=== PATIENT | male | born 1965 | race Caucasian/White ===

== ENCOUNTER → 2019-06-16 13:26 | Outpatient (BNVA) | payer BC, SELFPAY | PROVIDERS: Family Provider Nurse Practitioner; PCP Nurse Practitioner; Visit Provider Registered Nurse | DX: E11.9 Type 2 diabetes mellitus without complications (principal); E78.5 Hyperlipidemia, unspecified; I10 Essential (primary) hypertension; E11.621 Type 2 diabetes mellitus with foot ulcer; E11.628 Type 2 diabetes mellitus with other skin complications; L97.509 Non-pressure chronic ulcer of other part of unspecified foot with unspecified severity; L08.9 Local infection of the skin and subcutaneous tissue, unspecified; E11.65 Type 2 diabetes mellitus with hyperglycemia; E78.2 Mixed hyperlipidemia; S91.302A Unspecified open wound, left foot, initial encounter | CPT/HCPCS: 80053; 80061; 83036; 85025; 87070; 87077; 87186 ==

== ENCOUNTER 2019-06-19 12:21 | Inpatient (IN) | payer BC, SELFPAY ==
[2019-06-19] VITALS (7 sets, daily range): BP systolic 109–151; BP diastolic 71–121; PULSE 92–106; RESP 12–20; TEMP 36.8–37.3; O2SAT 96–99; BMI 35.9
--- NOTE | 2019-06-19 12:51 | ED_ITS ---
HPI - Extremity Problem General: Chief complaint: Extremity Injury, Lower Stated complaint: wound check Time Seen by Provider: 06/19/19 12:47 History of Present Illness: HPI Narrative: 54-year-old male sent over from the wound care clinic he has a history of poorly controlled diabetes mellitus he is on insulin his last glycosylated hemoglobin was greater than 12. Stepped on a nail about 6 months ago since and is been trying to get the wound to heal he has an open wound to the foul-smelling discharge he was seen 3 days ago and started on Bactrim Dr. Coronel seen him today in the wound care clinic. Today she is reporting some redness and erythema localized does not look like actual lymphatic spread but there is definite increase in redness he is failed oral antibiotics now twice he is previously had a amputation of the toe due to infection. He is not had any evaluation in the past for peripheral artery disease at Dr. Coronel was aware of. Associated symptoms: Deny chest pain, fever(s) or rash Review of Systems Const: Denies: fever, chills, body aches, change in appetite, fatigue or ma laise ENMT: Denies: throat pain, ear pain, nasal discharge or nasal congestion Card: Denies: chest pain, edema, shortness of breath on exertion or shortness of breath when lying down Resp: Denies: shortness of breath, productive cough or non-productive cough GI: Denies: abdominal pain, nausea, vomiting, vomiting blood, coffee grounds in vomit, diarrhea, constipation, bloating, blood in stool or black tarry stool : Denies: flank pain, painful urination, urinary frequency or urinary urgency Skin/Breast: Denies: rash or itching PFSH ED PFSH: Family History (Updated 06/19/19 @ 15:40 by Cordelia Story MD) Father Diabetes Mother Diabetes Other Hypertension Social History (Updated 06/19/19 @ 15:40 by Cordelia Story MD) Smoking and tobacco status: never smoked Alcohol intake: former Substance/Drug Use: never Physical Exam Const: COMMON NORMALS: no apparent distress GENERAL APPEARANCE: cooperative and comfortable ORIENTATION/CONSCIOUSNESS: Yes awake, Yes oriented to person, Yes oriented to place and Yes oriented to time HENMT: COMMON NORMALS: normocephalic, head/scalp atraumatic, hearing grossly normal bilaterally, external ears normal, EAC's normal, TM's normal bilaterally, nasal mucous membranes and turbinates normal, moist oral mucous membranes and oropharynx normal HEAD & SCALP: normocephalic and atraumatic NOSE: nasal mucous membranes and turbinates normal EXTERNAL EAR: Yes external ears normal EXTERNAL AUDITORY CANAL: EAC's normal TYMPANIC MEMBRANE: TM's normal bilaterally Eye: COMMON NORMALS: PERRL, EOMs intact bilaterally, conjunctivae normal and no scleral icterus CONJUNCTIVA: Yes conjunctivae normal PUPIL: Yes PERRL Neck/C-Spine: COMMON NORMALS: full ROM, no lymphadenopathy, supple and no JVD Lymph: LYMPHATIC: no lymphadenopathy noted and no lymphedema noted Resp: COMMON NORMALS: normal respiratory effort, no retractions, no use of accessory muscles and clear to auscultation bilaterally AUSCULTATION: clear to auscultation bilaterally Cardio: COMMON NORMALS: no JVD, regular rate, regular rhythm and no murmurs RATE: regular rate RHYTHM: regular rhythm GI: COMMON NORMALS: soft to palpation and no hepatosplenomegaly AUSCUL TATION: Yes normoactive bowel sounds PALPATION: Yes soft, No tender, No guarding and Yes no hepatosplenomegaly Extremity: COMMON NORMALS: normal to inspection, normal capillary refill, no clubbing, cyanosis or edema, no calf tenderness and no pedal edema NARRATIVE EXTREMITY EXAM: Sole left foot laterally approximately the midpoint of the fifth metatarsal there is a open draining wound with extremely foul-smelling discharge. There is purulent in nature. Dorsum of the foot shows cellulitis without significant lymphatic streaking. Neuro: SENSORIUM/ORIENTATION: Yes oriented to person, Yes oriented to place and Yes oriented to time Skin: COMMON NORMALS: no rashes or lesions noted GENERAL SKIN EXAM: no rashes or lesions noted Course Vital Signs: Vital signs: Vital Signs Temperature 98.1 F 06/20/19 11:27 Pulse Rate 84 06/20/19 11:27 Respiratory Rate 22 H 06/20/19 11:27 Blood Pressure 138/76 06/20/19 11:27 Pulse Oximetry 98 06/20/19 11:27 MDM - Extremity (Nontraumatic) MDM Narrative: Medical decision making narrative: CT shows abscess. Will admit for surgical debridement and initiation of IV antibiotics. Discussed with Dr. Story and discussed with Dr. Shaffer who will see the patient on the floor Lab Data: Labs: Lab Results 06/19/19 06/19/19 06/19/19 Range/Units 13:10 13:10 13:10 WBC 11.3 H (4.0-10.0) 10^3/ uL RBC 4.76 (4.1-5.3) 10^6/u L Hgb 13.4 (11.7-16.6) g/dL Hct 41.7 L (42.0-52.0) % MCV 87.6 (80-94) fL MCH 28.2 (28.0-34.0) pg MCHC 32.1 (30.0-36.0) g/dL RDW 12.3 (12.1-15.1) % Plt Count 323 (130-400) 10^3/c mm MPV 9.8 (7.4-10.4) fL Neut % (Auto) 73.0 % Lymph % (Auto) 16.8 % [place] % (Auto) 9.0 % Eos % (Auto) 0.4 % Baso % (Auto) 0.3 % Neut # (Auto) 8.3 H (1.8-7.7) 10^3/u L Lymph # (Auto) 1.9 (0.8-4.8) 10^3/u L [place] # (Auto) 1.0 H (0.2-0.9) 10^3/u L Eos # (Auto) 0.0 (0.0-0.8) 10^3/u L Baso # (Auto) 0.0 (0.0-0.1) 10^3/u L Nucleated RBC % (a uto) 0 % Nucleated RBCs # 0.0 /100WBC ESR 90 H (0-10) mm/hr Sodium 133 L (136-145) mmol/L Potassium 5.3 H (3.5-5.1) mmol/L Chloride 96 L (98-107) mmol/L Carbon Dioxide 24 (22-29) mmol/L Anion Gap 18.3 (5-19) BUN 24 H (6-20) mg/dL Creatinine 1.8 H (0.7-1.2) mg/dL GFR Calculation 39.2 L (90-130) mL/min Glucose 203 H (65-115) mg/dL Calculated Osmolal ity 279 L (285-295) mOsm/k g Calcium 10.3 (8.5-10.5) mg/dL Total Bilirubin 0.4 (0.15-1.2) mg/dL AST 18 (0-40) U/L ALT 16 (0-41) U/L Alkaline Phosphata se 86 (40-130) IU/L C-Reactive Protein 104.3 H (0.0-4.9) mg/L Total Protein 8.0 (6.6-8.7) g/dL Albumin 4.1 (3.5-5.2) g/dL Globulin 3.9 (1.3-4.6) g/dL Lipase 41 (13-60) U/L Discharge Plan Discharge Admit Provider: Cordelia Story Condition: Stable Discharge Date/Time: 06/19/19 15:06 Coding Level of Care Code ED Skidder Driver for Paula Ho
--- NOTE | 2019-06-19 12:58 | XR_ITS ---
WS: [id number] LEFT FOOT: 3 VIEW(S) TECHNIQUE: PA, oblique and lateral. HISTORY: draining wound COMPARISON: 01/02/2019 Soft tissue ulceration along the lateral and plantar surface of the fifth metatarsal. The bone appear s to be intact. There is air along the soft tissue track of the proximal fifth metatarsal. Normal tarsal/metatarsal alignment. No soft tissue abnormality or bone destruction. XR/XR foot LT min 3V* [id number] IMPRESSION: Soft tissue ulceration with tract along the plantar lateral surface of the foot extends to abut proximal fifth metatarsal. No osteomyelitis identified.
--- NOTE | 2019-06-19 12:58 | CT_ITS ---
WS: [id number] CT LEFT FOOT WITH CONTRAST. HISTORY: cellulitis, abscess Technique: All CT scans at [facility] use at least one of these dose optimization techniq ues: automated exposure control; mA and/or kV adjustment per patient size (includes targeted exams wh ere dose is matched to clinical indication); or iterative reconstruction. DLP: 128.92 mGy.cm COMPARISON: 06/19/2019 foot radiograph. Soft tissue ulceration along the plantar surface of the lateral foot at the level of the proximal fif th metatarsal. Ulceration extends over length of at least 3.0 cm. There is a tract extending towards the fifth metatarsal. The tract contains air with enhancement and skin thickening. The tract and the inflammation extends to the cortical surface of the proximal metatarsal. No definite osteomyelitis or bone destruction. Phlegmonous collection measures 13 x 17 mm. No additional soft tissue ulcerations. Small cyst in the calcaneus. Mild soft tissue edema along the plantar surface of the foot. CT/CT foot LT w con [id number] IMPRESSION: 1. Soft tissue ulceration with tract extending from the plantar surface of the lateral foot to the proximal fifth metatarsal. 2. No osteomyelitis identified radiographically. 3. Phlegmonous collection and cellulitis adjacent to the fifth metatarsal. Ph legmonous measures 13 x 17 mm.
[2019-06-19 13:24] LABS: Basophils % 0.3 %; Eosinophils % 0.4 %; Hematocrit 41.7 % (42.0-52.0); Hemoglobin 13.4 g/dL (11.7-16.6); Lymphocytes # 1.9 10^3/uL (0.8-4.8); Lymphocytes % 16.8 %; Mean Corpuscular HGB Conc 32.1 g/dL (30.0-36.0); Mean Corpuscular Hemoglobin 28.2 pg (28.0-34.0); Mean Corpuscular Volume 87.6 fL (80-94); Mean Platelet Volume 9.8 fL (7.4-10.4); Neutrophils # 8.3 10^3/uL (1.8-7.7); Nucleated Red Blood Cells % 0 %; Platelet Count 323 10^3/cmm (130-400); Red Blood Count 4.76 10^6/uL (4.1-5.3); Red Cell Distribution Width 12.3 % (12.1-15.1); White Blood Count 11.3 10^3/uL (4.0-10.0)
[2019-06-19] MEDS: iodixanol 320 mg/mL 100mL Btl IV (13:25)
[2019-06-19 13:32] LABS: Alanine Aminotransferase 16 U/L (0-41); Albumin Level 4.1 g/dL (3.5-5.2); Alkaline Phosphatase 86 IU/L (40-130); Anion Gap 18.3 (5-19); Aspartate Amino Transferase 18 U/L (0-40); Blood Urea Nitrogen 24 mg/dL (6-20); C Reactive Protein 104.3 mg/L (0.0-4.9); Calcium 10.3 mg/dL (8.5-10.5); Carbon Dioxide 24 mmol/L (22-29); Chloride 96 mmol/L (98-107); Globulin 3.9 g/dL (1.3-4.6); Glomerular Filtration Rate 39.2 mL/min (90-130); Glucose 203 mg/dL (65-115); Lipase 41 U/L (13-60); Osmolality Calculated 279 mOsm/kg (285-295); Potassium 5.3 mmol/L (3.5-5.1); Sodium 133 mmol/L (136-145); Total Bilirubin 0.4 mg/dL (0.15-1.2)
[2019-06-19] MEDS: vancomycin 1,000 MG in sodium chloride 0.9% 250 ML 250 MG IV (13:50)
[2019-06-19 14:36] LABS: Erythrocyte Sedimentation Rate 90 mm/hr (0-10)
--- NOTE | 2019-06-19 15:18 | USCV_ITS ---
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 Dr Leslie Hair MD [facility] (Electronically Signed) Final Date: 21 June 2019 20:15 S
--- NOTE | 2019-06-19 15:19 | PM.CONSULT ---
Providers/Reason For Consult Consulting Physican/Specialty*: Dr. Goodman Pryor Reason for Consult*: Left foot wound with infection Attending Physician: Cordelia Story MD Primary Care Provider: DAGOBERTO Patel History of Present Illness History of Present Illness Martir Kruger is a 54 year old poorly controlled diabetic male with nonhealing left foot ulcer. Per patient's report there has been a waxing and waning wound at the left lateral midfoot for the past 6 months, states that he had a sharp object in his shoe that was a source of the wound. He was seen by his primary care provider May 15 and was prescribed Bactrim DS lab work was also done his white count on 06/15 was 6.9 he was afebrile. He had wound care follow-up arranged. He was seen at wound care by Dr. Coronel today, reports of increased redness, drainage and malodor, he was then sent to the emergency department. I was consulted for evaluation of his left foot wound small abscess visualized on CT. Patient admitted for IV empiric antibiotics and surgical debridement. Review of Systems Const: Denies: fever, chills or malaise Card: Denies: chest pain or palpitations Resp: Denies: shortness of breath, productive cough or non-productive cough GI: Denies: abdominal pain, nausea or vomiting Musc: Reports: redness (L foot) and deformity; Denies: extremity pain Skin/Breast: Reports: sores and nail changes Neuro: Reports: numbness in extremities and changes in sensation Psych: Denies: anxiety Meds/Allergies Home Medications and Allergies Home Medications Medication Instructions Recorded Confirmed Type aspirin 81 mg tablet,delayed 81 mg PO DAILY 06/16/19 06/19/19 History release exenatide 10 mcg SUBCUT BID #2.4 ml 06/16/19 06/19/19 Rx insulin detemir U-100 100 unit/mL 50 unit SUBCUT DAILY #15 ml 06/16/19 06/19/19 Rx (3 mL) subcutaneous pen insulin lispro 200 unit/mL (3 mL) 3 - 24 unit SUBCUT TID #6 ml 06/16/19 06/19/19 Rx subcutaneous pen lisinopril 2.5 mg tablet 2.5 mg PO DAILY 06/16/19 06/19/19 History metformin 1,000 mg tablet,extended 1,000 mg PO DAILY #90 tab 06/16/19 06/19/19 Rx release 24hr multivitamin 1 tab PO DAILY 06/16/19 06/19/19 History sulfamethoxazole 800 1 tab PO BID 10 Days #20 tab 06/16/19 06/19/19 Rx mg-trimethoprim 160 mg tablet Allergies Allergy/AdvReac Type Severity Reaction Status Date / Time No Known Allergies Allergy Verified 06/16/19 12:27 PFSH Acute PFSH: Medical History (Updated 06/19/19 @ 17:20 by Trace Shaffer DPM) Diabetes type 2, uncontrolled Insulin-dependent Essential hypertension Hyperlipidemia, mixed Obesity Surgical History Amputated toe of right foot secondary to osteomyelitis Family History (Updated 06/19/19 @ 15:40 by Cordelia Story MD) Father Diabetes Mother Diabetes Other Hypertension Social History (Updated 06/19/19 @ 15:40 by Cordelia Story MD) Smoking and tobacco status: never smoked Alcohol intake: former Substance/Drug Use: never Vitals/I&O/Wt Last Vital Signs Temp 98.3 F 06/19/19 12:25 Pulse 105 H 06/19/19 13:50 Resp 12 06/19/19 13:50 BP 109/75 06/19/19 13:50 Pulse Ox 97 06/19/19 13:50 Weight last 48 hrs Weight 243 lb Physical Exam Narrative: EXAM NARRATIVE: GENERAL: Patient is alert and oriented ?3 and in no acute distress. The following is a focused left lower extremity exam. VASCULAR: Dorsalis pedis arteries faintly palpable, posterior tibial arteries palpable +1 bilaterally. Capillary refill time less than 5 seconds to the distal hallux bilaterally. Calf is supple and nontender proximally and distally. Decreased hair growth at legs and feet bilaterally. No significant edema to the left foot. NEUROLOGICAL: Protective sensation intact 0/10 sites. DERMATOLOGICAL: Full-thickness wound sub-fifth metatarsal base left foot probes to bone measures 4 mm x 6 mm x 2 cm with malodor and cellulitis streaking to the dorsum of the left forefoot. Well-healed cicatrix at the right foot fourth toe amputation site. Lower extremity integument is thin and shiny has atrophic appearance with decreased texture and turgor. MUSCULOSKELETAL: No pain to palpation or with debridement of the left foot wound secondary to neuropathy. Muscle strength is 5 out of 5 in all 3 cardinal planes to bilateral foot and ankle. Ankle joint dorsiflexion is to neutral bilaterally. Feet Bottom: 1. Full-thickness wound probes to bone, depth of 2 cm. Cellulitis streaking to the dorsum of the left forefoot. No lymphangitic streaking proximal to the ankle. Data Micro: Micro: Microbiology 06/19/19 13:10 Blood Culture - Pr eliminary Blood SPECIMEN [facility] 06/19/19 13:00 Blood Culture - Pr eliminary Blood SPECIMEN [facility] Wound culture taken June 16, 2019 significant for Proteus mirabilis, Streptococcus and staph aureus. Sensitivities available for Proteus species, strep/staph are pending. Other Data: Other data: I reviewed x-rays and CT scan of the left lower extremity no obvious signs of osteomyelitis, there is soft tissue emphysema corresponding directly to the wound cavity, no foreign body, there is abscess collection appreciated on CT phlegmonous measures 13 x [address] A&P Assessment and plan (1) Diabetes type 2, uncontrolled: Status: Chronic Qualifiers: Glycemic state: with hyperglycemia Qualified Code(s): E11.65 - Type 2 diabetes mellitus with hyperglycemia (2) Non-pressure chronic ulcer 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: Status: Acute Patient was examined and evaluated, findings and treatment options were discussed with patient at length. He is receiving empiric IV antibiotics vancomycin and Zosyn renally dosed. Patient to be n.p.o. after midnight in preparation for incision and debridement left foot tentatively scheduled for tomorrow morning for June 19 at 7:45 AM. Patient will need to be nonweightbearing to the left lower extremity during his hospitalization. May require further surgical debridement, planning on acquiring a bone biopsy if wound indeed extends to the bone during tomorrow's procedure. Possibility for PICC line on discharge. Coding Level of Care Code Acute [employer] for Paula Ho Diagnoses Diabetes type 2, uncontrolled E11.65 Glycemic state: with hyperglycemia Non-pressure chronic ulcer 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 L97.523
--- NOTE | 2019-06-19 15:33 | P.HP_ITS ---
Providers/Chief Complaint Admitting Physician: Cordelia Story MD Primary Care Provider: Spencer Plata, SR. UNIX SYSTEM ADMINISTRATOR-C Chief Complaint: L foot draining wound History of Present Illness Martir Kruger is a 54 year old male with PMHx of IDDM type II, HTN, CKD stage 2-3, Peripheral neuropathy, Morbid obesity, presents for evaluation of noted left foot wound which he first noticed approximately 6 months ago after stepping on a nail that punctured through his shoe. Initially wound seemed to be healing with conservative measures but over the past several days has been noted to be draining and though he has limited sensation in his feet he started to notice some tingling in his left foot which he thought was unusual. He presented to his primary care provider on 06/15 and was prescribed Bactrim which he has been taking for the past 2 to 3 days. Wound culture was obtained during that visit and so far has grown Proteus mirabilis, strep species and staph aureus. Patient has a prior history of osteomyelitis with resulting amputation of the right fourth toe, done by Dr. Shaffer in 10/2017. Patient is a known insulin-dependent diabetic, last A1c was 12.2 in January 2019. Work-up in the ER indicates leukocytosis with a white count of 11.3, hyponatremia with a sodium of 133, hype rkalemia with a potassium of 5.3, BUN of 24, creatinine of 1.8, blood sugar of 203, ESR of 90, CRP of 104.3. X-ray shows no osteomyelitis, CT scan shows soft tissue ulceration with a phlegmon but no osteomyelitis. Case discussed with Dr. Shaffer and plan is for surgical debridement sometime tomorrow. Patient received a dose of vancomycin and I will add Zosyn given history of complicated wound, underlying uncontrolled diabetes with cautious monitoring of kidney function. Patient is currently afebrile and otherwise hemodynamically stable. He is being admitted for further IV antibiotic treatment and for surgical debridement. Review of Systems Const: Denies: fever, chills or malaise Eyes: Denies: change in vision ENMT: Denies: painful swallowing Card: Denies: chest pain, swelling of feet/ankles or lightheadedness Resp: Denies: shortness of breath, productive cough or non-productive cough GI: Denies: abdominal pain, nausea or vomiting : Denies: painful urination Musc: Reports: redness (L foot); Denies: back pain or extremity pain Skin/Breast: Reports: other (L foot-open draining wound); Denies: rash Neuro: Denies: numbness in extremities, weakness in extremities or difficulty walking Psych: Denies: anxiety Medications/Allergies Allergies Allergy/AdvReac Type Severity Reaction Status Date / Time No Known Allergies Allergy Verified 06/16/19 12:27 PFSH Acute PFSH: Medical History Diabetes type 2, uncontrolled Insulin-dependent Essential hypertension Hyperlipidemia, mixed Obesity Surgical History Amputated toe of right foot secondary to osteomyelitis Family History (Updated 06/19/19 @ 15:40 by Cordelia Story MD) Father Diabetes Mother Diabetes Other Hypertension Social History (Updated 06/19/19 @ 15:40 by Cordelia Story MD) Smoking and tobacco status: never smoked Alcohol intake: former Substance/Drug Use: never Vitals/I&O/Wt Last Vital Signs Temp 98.3 F 06/19/19 12:25 Pulse 105 H 06/19/19 13:50 Resp 12 06/19/19 13:50 BP 109/75 06/19/19 13:50 Pulse Ox 97 06/19/19 13:50 Weight last 48 hrs Weight 110.223 kg Physical Exam Const: COMMON NORMALS: no apparent distress and oriented x3 GENERAL APPEARANCE: cooperative and comfortable; not ill appearing NUTRITIONAL APPEARANCE: obese morbidly obese ORIENTATION/CONSCIOUSNESS: Yes awake HENMT: COMMON NORMALS: normocephalic, head/scalp atraumatic, hearing grossly normal bilaterally and moist oral mucous membranes HEAD & SCALP: normocephalic and atraumatic Eye: COMMON NORMALS: PERRL, EOMs intact bilaterally and conjunctivae normal CONJUNCTIVA: Yes conjunctivae normal PUPIL: Yes PERRL Neck/C-Spine: COMMON NORMALS: full ROM GENERAL: Yes normal visual inspection and Yes trachea midline Resp: COMMON NORMALS: normal respiratory effort, no retractions, no use of accessory muscles and clear to auscultation bilaterally EFFORT & INSPECTION: Yes able to speak in complete sentences, Yes symmetric chest movement and No tachypneic AUSCULTATION: clear to auscultation bilaterally Cardio: COMMON NORMALS: regular rate, regular rhythm, S1 normal heart sound, S2 normal heart sound and no murmurs RATE: regular rate RHYTHM: regular rhythm HEART SOUNDS: S1 normal and S2 normal GI: COMMON NORMALS: normal to inspection, nondistended, normoactive bowel sounds, soft to palpation and non-tender INSPECTION: Yes central obesity PALPATION: Yes soft Extremity: COMMON NORMALS: normal to inspection, full ROM and no clubbing, cyanosis or edema; negative for no pedal edema OTHER: -L lateral foot: noted open wound with callused edges on plantar surface, + foul-smelling drainage, tunnels to about 2 cm. Some erythema and warmth to touch on dorsum -R foot: amputated 4th toe Neuro: COMMON NORMALS: oriented x3, moves all extremities, no focal motor deficits and no sensory deficits noted Psych: COMMON NORMALS: mental status grossly normal, thought process normal, cooperative, affect normal and speech normal SPEECH: Yes normal speech THOUGHT PROCESS: normal thought process Skin: COMMON NORMALS: no jaundice, no petechiae and no mottling GENERAL SKIN EXAM: erythema (of L foot (dorsum)) Data : 06/19/19 13:10 06/19/19 13:10 Micro: Microbiology 06/19/19 13:10 Blood Culture - Preliminary Blood SPECIMEN COLLECTED 06/19/19 13:00 Blood Culture - Preliminary Blood SPECIMEN COLLECTED A&P Assessment and plan (1) Diabetic foot infection: -Noted left diabetic foot infection; no osteomyelitis per imaging though upon probes to bone following bedside debridement -Patient has known history of poorly controlled insulin-dependent diabetes with associated peripheral neuropathy and nephropathy -Noted elevated ESR and CRP, leukocytosis with neutrophilic predominance; continue to trend WBC -Noted area of erythema on dorsum of foot, area demarcated -Podiatry consult by Dr. Shaffer appreciated; plan for surgical debridement tomorrow; keep n.p.o. after midnight -Patient had been on Bactrim PO -received dose of Vancomycin in ED, continue this and add Zosyn due to duration of wound, hx of uncontrolled DM, failure of oral abx -f/u wound and blood cx; prior wound cx done by PCP on 06/15 grew Proteus mirabilis, Strep, Staph aureus -imaging noted with phelgmon Status: Acute (2) Diabetes type 2, uncontrolled: -has known IDDM type II, last A1c-12.2 (01/2019) -accuchecks, ISS, hypoglycemia precautions while NPO -diabetic diet for now, NPO after midnight Status: Chronic Qualifiers: Glycemic state: with hyperglycemia Qualified Code(s): E11.65 - Type 2 diabetes mellitus with hyperglycemia (3) Essential hypertension: -has known hx of HTN -monitor vital signs -hold ACEi due to renal impairment Status: Chronic (4) Hyperlipidemia, mixed: Status: Chronic Additional A&P Information -hx of OM with amputation of R 4th toe -Morbid obesity: BMI-36 kg/m2 -ALESIA on CKD stage 2-3; baseline Cr around 1.5; continue to monitor renal function, on IVF; avoid nephrotoxins, renally dose meds particularly with dual use of Vanc/Zosyn -DVT ppx with heparin -Dispo: home -Code status: FULL code Attestations Medical Necessity Statement*: Martir Kruger's hospital stay will require greater than 2 midnights for management of left diabetic foot infection including IV antibiotics and surgical debridement. Time Spent in Patient Care: Greater than 35 minutes (>than 50% of time spent in counselling and/or direct pt care on unit) . Coding Level of Care Code Acute Police Patrol Officer for Chg Fwd Diagnoses Diabetic foot infection E11.628; L08.9 Diabetes type 2, uncontrolled E11.65 Glycemic state: with hyperglycemia Essential hypertension I10 Hyperlipidemia, mixed E78.2
[2019-06-19] MEDS: sodium chloride 0.9% 1,000 ML 100 ML IV (15:47)
[2019-06-19] MEDS: heparin 5,000 unit/mL INJ 1 mL 5000 UNIT SUBCUT (17:32)
[2019-06-19 17:36] LABS: Glucose Point of Care 250 mg/dL (70-110)
[2019-06-19 21:10] LABS: Glucose Point of Care 203 mg/dL (70-110)
[2019-06-19] MEDS: piperacillin-tazobactam 3.375 GM in sodium chloride 0.9% (plus) 50 ML IV (21:24)
[2019-06-20] VITALS (9 sets, daily range): BP systolic 122–167; BP diastolic 73–91; PULSE 84–91; RESP 16–22; TEMP 36.1–37.6; O2SAT 96–98
[2019-06-20] MEDS: sodium chloride 0.9% 1,000 ML 100 ML IV (00:12)
[2019-06-20 05:42] LABS: Basophils % 0.4 %; Eosinophils # 0.1 10^3/uL (0.0-0.8); Eosinophils % 1.3 %; Hematocrit 36.9 % (42.0-52.0); Lymphocytes # 1.4 10^3/uL (0.8-4.8); Lymphocytes % 18.2 %; Mean Corpuscular HGB Conc 32.5 g/dL (30.0-36.0); Mean Corpuscular Volume 86.2 fL (80-94); Monocytes # 0.7 10^3/uL (0.2-0.9); Monocytes % 9.7 %; Neutrophils # 5.3 10^3/uL (1.8-7.7); Neutrophils % 69.9 %; Nucleated Red Blood Cells % 0 %; Platelet Count 283 10^3/cmm (130-400); Red Blood Count 4.28 10^6/uL (4.1-5.3); Red Cell Distribution Width 12.6 % (12.1-15.1); White Blood Count 7.6 10^3/uL (4.0-10.0)
[2019-06-20 05:59] LABS: Anion Gap 17.4 (5-19); Blood Urea Nitrogen 18 mg/dL (6-20); Calcium 9.6 mg/dL (8.5-10.5); Carbon Dioxide 23 mmol/L (22-29); Chloride 97 mmol/L (98-107); Glomerular Filtration Rate 48.4 mL/min (90-130); Glucose 250 mg/dL (65-115); Osmolality Calculated 279 mOsm/kg (285-295); Potassium 5.4 mmol/L (3.5-5.1); Sodium 132 mmol/L (136-145)
[2019-06-20 06:33] LABS: Glucose Point of Care 237 mg/dL (70-110)
--- NOTE | 2019-06-20 06:34 | PC.NURSE ---
OFF UNIT Patient taken down to surgery at this time.
--- NOTE | 2019-06-20 07:01 | PM.PN ---
Subjective Subjective: Interval history: Patient evaluated bedside in preop. He has been n.p.o. since midnight in preparation for surgery. Denies any increase in pain, dressings are intact without strikethrough. Patient denies any subjective nausea, vomiting, fever, chills, shortness of breath or chest pain. Medications: Reviewed: Yes Vitals/I&O/Wt Last Vital Signs Temp 96.9 F L 06/20/19 06:50 Pulse 87 06/20/19 06:50 Resp 18 06/20/19 06:50 BP 167/91 06/20/19 06:50 Pulse Ox 97 06/20/19 06:50 06/19/19 06/20/19 06/20/19 22:59 06:59 14:59 Intake Total 240 / 240 841.667 / 1081.667 Output Total 400 / 400 Balance 240 / 240 441.667 / 681.667 Weight last 48 hrs Weight 236 lb 4 oz Weight 243 lb Physical Exam Narrative: EXAM NARRATIVE: GENERAL: Patient is alert and oriented ?3 and in no acute distress. The following is a focused left lower extremity exam. VASCULAR: Dorsalis pedis arteries faintly palpable, posterior tibial arteries palpable +1 bilaterally. Capillary refill time less than 5 seconds to the distal hallux bilaterally. Calf is supple and nontender proximally and distally. Decreased hair growth at legs and feet bilaterally. No significant edema to the left foot. NEUROLOGICAL: Protective sensation intact 0/10 sites. DERMATOLOGICAL: Full-thickness wound sub-fifth metatarsal base left foot probes to bone measures 4 mm x 6 mm x 2 cm with malodor and cellulitis streaking to the dorsum of the left forefoot. Well-healed cicatrix at the right foot fourth toe amputation site. Lower extremity integument is thin and shiny has atrophic appearance with decreased texture and turgor. MUSCULOSKELETAL: No pain to palpation or with debridement of the left foot wound secondary to neuropathy. Muscle strength is 5 out of 5 in all 3 cardinal planes to bilateral foot and ankle. Ankle joint dorsiflexion is to neutral bilaterally. Feet Bottom: 1. Full-thickness wound probes to bone 2. History of right fourth toe amputation secondary to diabetic foot infection. Data : 06/20/19 05:00 06/20/19 05:00 Micro: Microbiology 06/19/19 13:10 Blood Culture - Preliminary Blood SPECIMEN COLLECTED 06/19/19 13:00 Blood Culture - Preliminary Blood SPECIMEN COLLECTED Other data: ESR 90 mm/h CRP 104.3 mg/L A1c 11.2 MONAE pending A&P Assessment and plan (1) Non-pressure chronic ulcer 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: Status: Acute (2) Diabetes type 2, uncontrolled: Status: Chronic Qualifiers: Glycemic state: with hyperglycemia Qualified Code(s): E11.65 - Type 2 diabetes mellitus with hyperglycemia Patient has been n.p.o. since midnight in preparation for surgery. Patient scheduled for incision debridement left foot this a.m. 745. Reviewed laboratory findings, clinical findings as well as informed consent with patient he is ready to proceed. Risks include pain, bleeding, numbness, persistent infection, loss of function, damage to adjacent soft tissue structures including muscle and tendon, need for further surgical debridement and/or amputation and need for antibiotic therapy. Attestations Medical Necessity Statement*: Diabetic foot infection with abscess, left foot Coding Level of Care Code Acute Life Specialist for [facility] Gris Diagnoses Non-pressure chronic ulcer 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 L97.523 Diabetes type 2, uncontrolled E11.65 Glycemic state: with hyperglycemia
[2019-06-20] MEDS: sodium chloride 0.9% 1,000 ML 30 ML IV (07:05)
--- NOTE | 2019-06-20 07:06 | P.ANESASSM_ITS ---
Pre-Anesthetic Assessment Pre-Anesthetic Assessment: Height/Weight: Height 1.75 m Weight 107.161 kg Temp Pulse Resp BP Pulse Ox 96.9 F L 87 18 167/91 97 06/20/19 06:50 06/20/19 06:50 06/20/19 06:50 06/20/19 06:50 06/20/19 06:50 Preop Diagnosis: left foot infection Proposed Procedure: Operation Date: 06/20/19 07:45 Proposed Procedures p Incision And Drainage(Not Applicable) - Trace Shaffer DPM Last intake: Intake Last Liquid Date 06/19/19 Last Liquid Time 23:00 Last Solid Date 06/19/19 Last Solid Time 23:00 Exam: Pre-Anes Outpt Exam: alert and oriented x 3 CV/HEM: CV/HEM: HTN Comments: rx'd 10y : : Chronic renal Insufficiency Comments: stage II-IIi Metabolic: Metabolic: DM and Morbid obesity Comments: Type II rx'd 18y, normally 2-250 Anesthetic Plan: ASA status: 3 Anesthesia: MAC Meds/Allergies Current Medications: Current Medications Generic Name Dose Route Start Last Admin Trade Name Freq PRN Reason Stop Dose Admin Heparin Sodium (Be ef Lung) 5,000 unit 06/19/19 16:15 06/19/19 23:50 Heparin SUBCUT Not Given Q8H MANUELA Sodium Chloride 1,000 mls @ 100 m ls/hr 06/19/19 15:18 06/20/19 00:12 Sodium Chloride 0.9% IV 100 mls/hr .Q10H MANUELA Administration Piperacillin Sod/T azobactam 50 mls @ 12.5 mls /hr 06/19/19 22:00 06/19/19 21:24 Sod 3.375 gm/ So dium Chloride IV 12.5 mls/hr Q18H MANUELA Administration Protocol Vancomycin HCl 1,5 00 mg/ 250 mls @ 166.667 mls/hr 06/19/19 22:00 06/19/19 21:23 Sodium Chloride IV 166.7 mls/hr Q18H MANUELA Administration Protocol Sodium Chloride 1,000 mls @ 30 ml s/hr 06/20/19 06:45 06/20/19 07:05 Sodium Chloride 0.9% IV 06/21/19 06:44 30 mls/hr .Q24H MANUELA Administration Insulin Aspart 0 unit 06/19/19 18:00 06/19/19 21:23 Novolog SUBCUT 8 unit WM&BEDTIME MANUELA Administration Protocol PFSH Anesthesia PFSH: Family History (Updated 06/19/19 @ 15:40 by Cordelia Story MD) Father Diabetes Mother Diabetes Other Hypertension Social History (Updated 06/19/19 @ 15:40 by Cordelia Story MD) Smoking and tobacco status: never smoked Alcohol intake: former Substance/Drug Use: never Data Anesthesia CBC & Chem 7: 06/20/19 05:00 06/20/19 05:00 Other Labs: Laboratory Results - last 48 hr 06/19/19 06/19/19 06/19/19 13:10 13:10 13:10 WBC 11.3 H RBC 4.76 Hgb 13.4 Hct 41.7 L MCV 87.6 MCH 28.2 MCHC 32.1 RDW 12.3 Plt Count 323 MPV 9.8 Neut % (Auto) 73.0 Lymph % (Auto) 16.8 [place] % (Auto) 9.0 Eos % (Auto) 0.4 Baso % (Auto) 0.3 Neut # (Auto) 8.3 H Lymph # (Auto) 1.9 [place] # (Auto) 1.0 H Eos # (Auto) 0.0 Baso # (Auto) 0.0 Nucleated RBC % (auto) 0 Nucleated RBCs # 0.0 ESR 90 H Sodium 133 L Potassium 5.3 H Chloride 96 L Carbon Dioxide 24 Anion Gap 18.3 BUN 24 H Creatinine 1.8 H GFR Calculation 39.2 L Glucose 203 H POC Glucose Calculated Osmolality 279 L Calcium 10.3 Total Bilirubin 0.4 AST 18 ALT 16 Alkaline Phosphatase 86 C-Reactive Protein 104.3 H Total Protein 8.0 Albumin 4.1 Globulin 3.9 Lipase 41 06/19/19 06/19/19 06/20/19 17:32 21:06 05:00 WBC 7.6 RBC 4.28 Hgb 12.0 Hct 36.9 L MCV 86.2 MCH 28.0 MCHC 32.5 RDW 12.6 Plt Count 283 MPV 10.0 Neut % (Auto) 69.9 Lymph % (Auto) 18.2 [place] % (Auto) 9.7 Eos % (Auto) 1.3 Baso % (Auto) 0.4 Neut # (Auto) 5.3 Lymph # (Auto) 1.4 [place] # (Auto) 0.7 Eos # (Auto) 0.1 Baso # (Auto) 0.0 Nucleated RBC % (auto) 0 Nucleated RBCs # 0.0 ESR Sodium Potassium Chloride Carbon Dioxide Anion Gap BUN Creatinine GFR Calculation Glucose POC Glucose 250 203 Calculated Osmolality Calcium Total Bilirubin AST ALT Alkaline Phosphatase C-Reactive Protein Total Protein Albumin Globulin Lipase 06/20/19 06/20/19 05:00 06:26 WBC RBC Hgb Hct MCV MCH MCHC RDW Plt Count MPV Neut % (Auto) Lymph % (Auto) [place] % (Auto) Eos % (Auto) Baso % (Auto) Neut # (Auto) Lymph # (Auto) [place] # (Auto) Eos # (Auto) Baso # (Auto) Nucleated RBC % (auto) Nucleated RBCs # ESR Sodium 132 L Potassium 5.4 H Chloride 97 L Carbon Dioxide 23 Anion Gap 17.4 BUN 18 Creatinine 1.5 H GFR Calculation 48.4 L Glucose 250 H POC Glucose 237 Calculated Osmolality 279 L Calcium 9.6 Total Bilirubin AST ALT Alkaline Phosphatase C-Reactive Protein Total Protein Albumin Globulin Lipase Micro: Microbiology 06/19/19 13:10 Blood Culture - Preliminary Blood SPECIMEN COLLECTED 06/19/19 13:00 Blood Culture - Preliminary Blood SPECIMEN COLLECTED Cardiac Studies: No Data to Display
[2019-06-20] MEDS: lidocaine 1% INJ 20 mL SUBCUT (08:30)
[2019-06-20] MEDS: vancomycin 500 MG in sodium chloride 0.9% (plus) 100 ML 200 MG XX (08:40)
--- NOTE | 2019-06-20 08:59 | P.OP_ITS ---
Operative Report Date of procedure: June 20, 2019 Pre-op Diagnosis: left foot infection with wound exposed to muscle and deep fascia Post-op diagnosis: same Post-op Findings: Left foot wound exposed to muscle layer Procedure Done: Incision and debridement left foot wound including epidermis, dermis, subcutaneous tissue, fat, muscle and deep fascia. Implants: None Specimens removed/disposition: Soft tissue left foot wound sent to microbiology for culture and sensitivity Pathology: none sent Surgeon: Trace Shaffer D.P.M. Employment Legal Assistant: Isamar Anesthesia: MAC Estimated blood loss: 5 mL IV fluids: None Urine output: None Complications: None Findings: Full-thickness wound exposed to fat layer, did not probe directly to bone. Condition: stable Disposition: floor Brief History: Mr. Kruger is a poorly controlled diabetic male with chronic nonhealing wound with recent increased redness, erythema and purulent drainage left plantar midfoot. Procedure: Under mild sedation the patient was brought to the operating room and placed on the operating table in supine position. A timeout was performed. Local anesthesia was injected by myself reverse Will block left foot consisting of 30 cc of one-to-one mixture 0.5% Marcaine plain and 1% lidocaine plain. Well-padded pneumatic tourniquet was applied to the left ankle. Left lower extremity was then scrubbed, prepped and draped utilizing normal aseptic technique. Left foot was elevated and tourniquet was inflated to 250 mmHg. Attention was directed to the left plantar foot, wound was explored utilizing blunt dissection and a [place] elevator did not probe directly to bone was able to visualize the lateral band of the plantar fascia near its attachment at the plantar aspect of the fifth metatarsal base left foot. Pickups and a 15 blade was utilized to sharply excise the wound circumferentially around its entire margin to healthy level there is significant fibrotic tissue and phlegmon with devitalized epidermis, dermis, subcutaneous tissue muscle and fat at the central portion of the wound this was excised and passed from the operative field. Utilizing sharp instrumentation the wound was debrided of all devitalized tissue followed pulse lavage irrigation. Soft tissue was sent to microbiology for culture and sensitivity intraoperatively. Further exploration of the wound was performed this did tunnel medially with a firm base further excision of the wound margins was performed to remove all tunneling and devitalized tissue. Further irrigation with saline was performed. Wound was then dressed with 500 mg of vancomycin powder, saline wet-to-dry consisting of sterile 4 x 4's, Kerlix ABD pad and noncompressive 4 inch Sylvester wrap. Tourniquet was deflated and a prompt hyperemic response was noted to the distal digits of the left foot. Patient tolerated the procedure well and was transferred to the PACU vital signs stable and vascular status intact. He will be transferred back to the floor to continue empiric IV antibiotics he is to remain nonweightbearing to the left foot and keep it elevated all times.
--- NOTE | 2019-06-20 09:05 | SUR.PHASEI ---
PT AWAKE ALERT TALKATAIVE HOB ELEVATED RT NECK DRESSING D/I 4X4 TEGADERM TO NECK
--- NOTE | 2019-06-20 09:58 | SUR.PHASEI ---
09 PT AWAKE ALERT TALKATIVE TAKING ICE CHIPS LT FOOT DRESSING D/I REPORT CALLED TO FLOOR PT TO FLOOR PER CART WITH RN
[2019-06-20 10:57] LABS: Glucose Point of Care 295 mg/dL (70-110)
--- NOTE | 2019-06-20 11:49 | PM.PN ---
Subjective Subjective: Interval history: s/p I & D this AM by Dr. Shaffer. AM labs noted, resolved leukocytosis, afebrile, VSS. Patient seen and examined upon his return from OR, in good spirits, no complaints, denies pain. Case discussed with Dr. Shaffer and will plan on PICC line placement, wound vac placement. Medications: Reviewed: Yes Medication Review Details: Active Medications Generic Name Dose Route Start Last Admin Trade Name Freq PRN Reason Stop Dose Admin Acetaminophen 650 mg 06/19/19 15:18 Tylenol PO Q6H PRN Mild/Mod Pain Or Temp >/= 101 Aspirin 81 mg 06/20/19 09:00 Aspirin Ec PO DAILY MANUELA Dextrose 25 ml 06/19/19 16:06 D50w IVP ONCE PRN hypoglycemia prot ocol Protocol Dextrose 50 ml 06/19/19 16:06 D50w IVP PRN PRN hypoglycemia prot ocol Protocol Glucagon 1 mg 06/19/19 16:06 Glucagen IM ONCE PRN Adult Acute Hypog lycemia Prot. Protocol Heparin Sodium (Be ef Lung) 5,000 unit 06/19/19 16:15 06/19/19 23:50 Heparin SUBCUT Not Given Q8H MANUELA Dextrose 500 mls @ 100 mls /hr 06/19/19 16:06 D5w IV ONCE PRN Adult Acute Hypog lycemia Prot Protocol Piperacillin Sod/T azobactam 50 mls @ 12.5 mls /hr 06/19/19 22:00 06/19/19 21:24 Sod 3.375 gm/ So dium Chloride IV 12.5 mls/hr Q18H MANUELA Administration Protocol Vancomycin HCl 1,5 00 mg/ 250 mls @ 166.667 mls/hr 06/19/19 22:00 06/19/19 21:23 Sodium Chloride IV 166.7 mls/hr Q18H MANUELA Administration Protocol Insulin Aspart 0 unit 06/19/19 18:00 06/19/19 21:23 Novolog SUBCUT 8 unit WM&BEDTIME MANUELA Administration Protocol Morphine Sulfate 2 mg 06/19/19 15:35 Morphine IVP Q4H PRN SEVERE PAIN No Known Allergies Allergy (Verified 06/16/19 12:27) Vitals/I&O/Wt Last Vital Signs Temp 98.1 F 06/20/19 11:27 Pulse 84 06/20/19 11:27 Resp 22 H 06/20/19 11:27 BP 138/76 06/20/19 11:27 Pulse Ox 98 06/20/19 11:27 06/19/19 06/20/19 06/20/19 22:59 06:59 14:59 Intake Total 240 / 240 841.667 / 1081.667 100 / 100 Output Total 400 / 400 Balance 240 / 240 441.667 / 681.667 100 / 100 Weight last 48 hrs Weight 111.782 kg Weight 111.357 kg Weight 107.161 kg Weight 110.223 kg Physical Exam Const: COMMON NORMALS: no apparent distress and oriented x3 GENERAL APPEARANCE: cooperative and comfortable; not ill appearing NUTRITIONAL APPEARANCE: obese morbidly obese ORIENTATION/CONSCIOUSNESS: Yes awake HENMT: COMMON NORMALS: normocephalic, head/scalp atraumatic, hearing grossly normal bilaterally and moist oral mucous membranes HEAD & SCALP: normocephalic and atraumatic Eye: COMMON NORMALS: PERRL, EOMs intact bilaterally and conjunctivae normal CONJUNCTIVA: Yes conjunctivae normal PUPIL: Yes PERRL Neck/C-Spine: COMMON NORMALS: full ROM GENERAL: Yes normal visual inspection and Yes trachea midline Resp: COMMON NORMALS: normal respiratory effort, no retractions, no use of accessory muscles and clear to auscultation bilaterally EFFORT & INSPECTION: Yes able to speak in complete sentences, Yes symmetric chest movement and No tachypneic AUSCULTATION: clear to auscultation bilaterally Cardio: COMMON NORMALS: regular rate, regular rhythm, S1 normal heart sound, S2 normal heart sound and no murmurs RATE: regular rate RHYTHM: regular rhythm HEART SOUNDS: S1 normal and S2 normal GI: COMMON NORMALS: normal to inspection, nondistended, normoactive bowel sounds, soft to palpation and non-tender INSPECTION: Yes central obesity PALPATION: Yes soft Extremity: COMMON NORMALS: normal to inspection, full ROM and no clubbing, cyanosis or edema; negative for no pedal edema OTHER: -L lateral foot: noted open wound with callused edges on plantar surface, + foul-smelling drainage, tunnels to about 2 cm. Some erythema and warmth to touch on dorsum. Currently has bulky dressing in place -R foot: amputated 4th toe Neuro: COMMON NORMALS: oriented x3, moves all extremities, no focal motor deficits and no sensory deficits noted Psych: COMMON NORMALS: mental status grossly normal, thought process normal, cooperative, affect normal and speech normal SPEECH: Yes normal speech THOUGHT PROCESS: normal thought process Skin: COMMON NORMALS: no jaundice, no petechiae and no mottling GENERAL SKIN EXAM: erythema (of L foot (dorsum)) Data : 06/20/19 05:00 06/20/19 05:00 Micro: Microbiology 06/20/19 08:48 Gram Stain - Final Tissue 06/19/19 13:10 Blood Culture - Preliminary Blood SPECIMEN COLLECTED 06/19/19 13:00 Blood Culture - Preliminary Blood SPECIMEN COLLECTED A&P Assessment and plan (1) Diabetic foot infection: -Noted left diabetic foot infection; no osteomyelitis per imaging though upon probes to bone following bedside debridement -Patient has known history of poorly controlled insulin-dependent diabetes with associated peripheral neuropathy and nephropathy -Noted elevated ESR and CRP, leukocytosis with neutrophilic predominance now resolved -Noted area of erythema on dorsum of foot, area demarcated -Podiatry consult by Dr. Shaffer appreciated; s/p surgical debridement, I & D -Patient had been on Bactrim PO -on Vancomycin/Zosyn due to duration of wound, hx of uncontrolled DM, failure of oral abx -f/u wound and blood cx; prior wound cx done by PCP on 06/15 grew Proteus mirabilis, Strep, Staph aureus. Wound cx sent from OR, gram stain positive for GPC in clusters and pairs as well as GPRs -imaging noted with phelgmon, no OM -NWB status on LLE -MONAE pending, clinically has diminished peripheral pulses bilaterally -wound vac per Dr. Shaffer -will need terminal operations manager IV antibiotics so will order PICC line Status: Acute (2) Diabetes type 2, uncontrolled: -has known IDDM type II, last A1c-11.2 -accuchecks, ISS, hypoglycemia precautions -diabetic diet -resume long acting and meal time insulin Status: Chronic Qualifiers: Glycemic state: with hyperglycemia Qualified Code(s): E11.65 - Type 2 diabetes mellitus with hyperglycemia (3) Essential hypertension: -has known hx of HTN -VSS; continue to monitor -resume ACEi as renal function improved Status: Chronic (4) Hyperlipidemia, mixed: Status: Chronic Additional A&P Information -hx of OM with amputation of R 4th toe -Morbid obesity: BMI-36 kg/m2 -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 Time Spent in Patient Care: 16 - 35 minutes (>than 50% of time spent in counselling and/or direct pt care on unit). Coding Level of Care Code Acute Paper Sales Representative for [facility] Exam Comprehensive Diagnoses Diabetic foot infection E11.628; L08.9 Diabetes type 2, uncontrolled E11.65 Glycemic state: with hyperglycemia Essential hypertension I10 Hyperlipidemia, mixed E78.2
--- NOTE | 2019-06-20 12:13 | PC.CHAP ---
Pastoral Care Encounter/Spiritual Assessment Type of Contact [] Declined milking worker visit [] Patient/Family/Request visit [] Outpatient visit [] Follow-up visit [] Physician referral [] Code/Alert [x] Routine visit [] Staff referral [] Actively dying [] Patient sleeping [] Family support [] [] Out of room [] Palliative care [] [] Receiving care in room [] Pre-surgical visit [] Trauma [] Long length of stay [] ICU visit [] Other: Relational/Emotional Strength [] Patient feels connected with others/family/visitors/staff [] Distress [] Loneliness/isolation [] Abandonment Spirituality of Patient [] Person of Jania [] Attends Mandaen of their Jania [] Believes in Prayer [] Reads Bible or Protestant materials [] There are Spiritual issues to be addressed [employer] Hot [employer]gings Interventions [x] Prayer [] Active listening [] Non-anxious presence [] Spiritual/emotional support [] Crisis/trauma care [] Spiritual counseling [] Bereavement support [] Provided bereavement packet [] Provided Bible/devotional materials [] Provided toy/stuffed animal, coloring book to patient or family member [] Provided Communion [] Anointing/[place] [] Salvation [x] Completed spiritual assessment [] Other: Impact on Illness or Injury [] Angry [] Fearful [] Anxious [] Often cries [] Exhaustion [] Unable to work [] Unable to attend sabianist [] Unable to walk/stand [] Unable to read [] Unable to drive [] Unable to eat/drink [] Unable to sleep [] Unable to be with family [] Patient intubated [] Other: Summary Leg foot being attended by doctors. Patient resting well. Setting up eating. Time spent with patient 10min
[2019-06-20] MEDS: heparin 5,000 unit/mL INJ 1 mL 5000 UNIT SUBCUT ×2 (16:07→23:22)
[2019-06-20] MEDS: piperacillin-tazobactam 3.375 GM in sodium chloride 0.9% (plus) 50 ML IV ×2 (16:14→23:22)
[2019-06-20 16:41] LABS: Glucose Point of Care 190 mg/dL (70-110)
[2019-06-20] MEDS: acetaminophen 325 mg Tablet 650 MG PO (21:03)
[2019-06-20] MEDS: sodium polystyrene sulfonate 15 gm/60 mL Btl PO (21:04)
[2019-06-20 21:55] LABS: Glucose Point of Care 240 mg/dL (70-110)
[2019-06-21] VITALS: BP 134/78; PULSE 79; RESP 16; TEMP 36.4; O2SAT 95
[2019-06-21 04:00] VITALS: BP 148/88; PULSE 100; RESP 17; TEMP 37.1; O2SAT 100
[2019-06-21 05:37] LABS: Anion Gap 18.7 (5-19); Blood Urea Nitrogen 16 mg/dL (6-20); Calcium 10.3 mg/dL (8.5-10.5); Carbon Dioxide 26 mmol/L (22-29); Chloride 95 mmol/L (98-107); Glomerular Filtration Rate 48.4 mL/min (90-130); Glucose 246 mg/dL (65-115); Osmolality Calculated 285 mOsm/kg (285-295); Potassium 4.7 mmol/L (3.5-5.1); Sodium 135 mmol/L (136-145)
[2019-06-21] MEDS: lisinopril 2.5 mg Tablet PO (07:38)
[2019-06-21] MEDS: heparin 5,000 unit/mL INJ 1 mL 5000 UNIT SUBCUT ×3 (07:38→23:39)
[2019-06-21] MEDS: aspirin 81 mg EC Tablet PO (07:38)
[2019-06-21 07:54] VITALS: BP 159/84; PULSE 86; RESP 18; TEMP 36.8; O2SAT 98
--- NOTE | 2019-06-21 07:56 | P.PN_ITS ---
Subjective Subjective: Interval history: Mr. Kruger is 1 day status post left foot I&D. Pain well controlled. No leukocytosis. He is afebrile. He did bleed through his dressings which had to be reinforced several times. He is to be nonweightbearing to the left foot. Patient denies any subjective nausea, vomiting, fever, chills, shortness of breath or chest pain. Medications: Reviewed: Yes Vitals/I&O/Wt Last Vital Signs Temp 98.7 F 06/21/19 04:00 Pulse 100 06/21/19 04:00 Resp 17 06/21/19 04:00 BP 148/88 06/21/19 04:00 Pulse Ox 100 06/21/19 04:00 06/20/19 06/21/19 06/21/19 22:59 06:59 14:59 Intake Total 1410 / 1870 120 / 1990 Output Total 3450 / 4850 700 / 5550 Balance -2040 / -2980 -580 / -3560 Weight last 48 hrs Weight 246 lb 7 oz Weight 245 lb 8 oz Weight 236 lb 4 oz Weight 243 lb Physical Exam Narrative: EXAM NARRATIVE: 3.5 cm x 3.8 cm x 2 cm Const: COMMON NORMALS: no apparent distress, oriented x3 and alert ORIENTATION/CONSCIOUSNESS: Yes awake Lymph: LYMPHATIC: No lymphedema Resp: COMMON NORMALS: normal respiratory effort and no use of accessory muscles Cardio: COMMON NORMALS: negative for peripheral pulses 2+ throughout PERIPHERAL PULSES: No pulses 2+ throughout Extremity: COMMON NORMALS: negative for normal capillary refill (CFT 5 seconds bilateral hallux.) GENERAL: Yes amputation (History of right fourth toe amputation, site is well-healed.), No calf tenderness, Yes edema, Yes pulses abnormal (Dorsalis pedis arteries faintly palpable bilaterally. Posterior tibial artery palpable +1 bilaterally. Capillary refill time less than 5 seconds to the distal hallux bilaterally. Decreased hair growth at legs and feet.) and Yes monofilament exam performed Monofilament exam findings: L 1st metatarsals: absent, L 3rd metatarsals: absent, L 5th metatarsals: absent, L great toe: absent, L 3rd toe: absent, L 5th toe: absent, L medial mid foot: absent, L lateral mid-foot: absent, L mid-heel: absent, L mid-dorsum foot: absent, R 1st metatarsals: absent, R 3rd metatarsals: absent, R 5th metatarsals: absent, R great toe: absent, R 3rd toe: absent, R 5th toe: absent, R medial mid foot: absent, R lateral mid-foot: absent, R mid-heel: absent and R mid-dorsum foot: absent RIGHT LOWER EXTREMITY: Yes ankle joint LEFT LOWER EXTREMITY: Yes ankle joint (Ankle joint dorsiflexion to neutral) and Yes foot & digits (History of partial right fourth ray amputation. Amputation site is well- healed.) OTHER: Ankle joint dorsiflexion to neutral Neuro: COMMON NORMALS: oriented x3 SENSORIUM/ORIENTATION: Yes alert MONOFILAMENT EXAM PERFORMED: Yes MOTOR EXAM: strength 5/5 throughout Skin: COMMON NORMALS: negative for no wounds GENERAL SKIN EXAM: atrophy, dry skin, erythema and scars (Amputation site right fourth ray) surgical and well-healed WOUNDS: Yes wounds noted (Wound at the plantar aspect of left foot sub-fifth metatarsal base has largely fibrotic base exposed to fascia) size (3.5 cm x 3.8 cm x 2 cm), bed and with surrounding erythema HAIR: general thinning NAILS: yellow and thickened Sepsis: Is patient septic: No Data : 06/20/19 05:00 06/21/19 05:09 Micro: Microbiology 06/19/19 13:10 Blood Culture - Preliminary Blood NEGATIVE TO DATE 06/19/19 13:00 Blood Culture - Preliminary Blood NEGATIVE TO DATE 06/20/19 08:48 Gram Stain - Final Tissue Other data: Wound culture pending. ABIs pending A&P Assessment and plan (1) Non-pressure chronic ulcer 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: Status: Acute (2) Diabetes type 2, uncontrolled: Status: Chronic Qualifiers: Glycemic state: with hyperglycemia Qualified Code(s): E11.65 - Type 2 diabetes mellitus with hyperglycemia (3) Foot abscess, left: Status: Acute 1 day status post I&D left foot with persistent erythema at the dorsum, is still within the confines of line of demarcation that was drawn on admission. Patient endorses decreased pain to the left foot. X-rays and CT scan negative for osteomyelitis. Inflammatory markers are concerning with elevated CRP and ESR. Scheduled for PICC line today, wound cultures pending. Patient to have twice daily dressing change saline wet-to-dry, will hopefully place wound VAC tomorrow if there is clinical improvement. Planning for IV antibiotics and wound VAC on discharge with home health and wound care follow-up. Strict nonweightbearing to the left lower extremity at this time. Will contact [facility] for offloading shoe. Attestations Medical Necessity Statement*: Diabetic foot infection, left foot. Coding Level of Care Code Acute Skilled Nursing Facilities Professional for [facility] Fwd Exam Detailed Diagnoses Non-pressure chronic ulcer 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 L97.523 Diabetes type 2, uncontrolled E11.65 Glycemic state: with hyperglycemia Foot abscess, left L02.612
--- NOTE | 2019-06-21 08:11 | PM.PN ---
Subjective Subjective: Interval history: Patient seen and examined early this AM with Dr. Shaffer who did bedside dressing change. Prior dressing noted to be bloody, hematoma in wound bed flushed with saline, noted erythema within previously demarcated area, macerated around wound edges. Will hold off on wound vac placement at this time and continue wet-to-dry dressings BID. AM labs noted with resolved hyperkalemia, stable renal function. Had 2050 mL urine output overnight, VSS, afebrile. Accucheks noted with better glycemic control following resumption of meal-time and long acting insulin. PICC line placement today. Wound cx pending. Medications: Reviewed: Yes Medication Review Details: Active Medications Generic Name Dose Route Start Last Admin Trade Name Freq PRN Reason Stop Dose Admin Acetaminophen 650 mg 06/19/19 15:18 06/20/19 21:03 Tylenol PO 650 mg Q6H PRN Administration Mild/Mod Pain Or Temp >/= 101 Aspirin 81 mg 06/20/19 09:00 06/21/19 07:38 Aspirin Ec PO 81 mg DAILY MANUELA Administration Dextrose 25 ml 06/19/19 16:06 D50w IVP ONCE PRN hypoglycemia prot ocol Protocol Dextrose 50 ml 06/19/19 16:06 D50w IVP PRN PRN hypoglycemia prot ocol Protocol Glucagon 1 mg 06/19/19 16:06 Glucagen IM ONCE PRN Adult Acute Hypog lycemia Prot. Protocol Heparin Sodium (Be ef Lung) 5,000 unit 06/19/19 16:15 06/21/19 07:38 Heparin SUBCUT 5,000 unit Q8H MANUELA Administration Dextrose 500 mls @ 100 mls /hr 06/19/19 16:06 D5w IV ONCE PRN Adult Acute Hypog lycemia Prot Protocol Piperacillin Sod/T azobactam 50 mls @ 12.5 mls /hr 06/20/19 13:00 06/20/19 23:22 Sod 3.375 gm/ So dium Chloride IV 12.5 mls/hr Q8H MANUELA Administration Protocol Vancomycin HCl 1,5 00 mg/ 250 mls @ 166.667 mls/hr 06/20/19 15:00 06/20/19 14:07 Sodium Chloride IV 166.7 mls/hr Q18H MANUELA Administration Protocol Insulin Aspart 0 unit 06/19/19 18:00 06/21/19 07:25 Novolog SUBCUT 10 unit WM&BEDTIME MANUELA Administration Protocol Insulin Aspart 10 unit 06/20/19 17:00 06/21/19 07:24 Novolog SUBCUT 10 unit TIDAC MANUELA Administration Insulin Detemir 50 unit 06/20/19 21:00 06/20/19 21:05 Levemir SUBCUT 50 unit BEDTIME MANUELA Administration Lisinopril 2.5 mg 06/21/19 09:00 06/21/19 07:38 Prinivil PO 2.5 mg DAILY MANUELA Administration Morphine Sulfate 2 mg 06/19/19 15:35 Morphine IVP Q4H PRN SEVERE PAIN No Known Allergies Allergy (Verified 06/16/19 12:27) Vitals/I&O/Wt Last Vital Signs Temp 98.2 F 06/21/19 07:54 Pulse 86 06/21/19 07:54 Resp 18 06/21/19 07:54 BP 159/84 06/21/19 07:54 Pulse Ox 98 06/21/19 07:54 06/20/19 06/21/19 06/21/19 22:59 06:59 14:59 Intake Total 1410 / 1870 120 / 1990 Output Total 3450 / 4850 700 / 5550 Balance -2040 / -2980 -580 / -3560 Weight last 48 hrs Weight 111.782 kg Weight 111.357 kg Weight 107.161 kg Weight 110.223 kg Physical Exam Const: COMMON NORMALS: no apparent distress and oriented x3 GENERAL APPEARANCE: cooperative and comfortable; not ill appearing NUTRITIONAL APPEARANCE: obese morbidly obese ORIENTATION/CONSCIOUSNESS: Yes awake HENMT: COMMON NORMALS: normocephalic, head/scalp atraumatic, hearing grossly normal bilaterally and moist oral mucous membranes HEAD & SCALP: normocephalic and atraumatic Eye: COMMON NORMALS: PERRL, EOMs intact bilaterally and conjunctivae normal CONJUNCTIVA: Yes conjunctivae normal PUPIL: Yes PERRL Neck/C-Spine: COMMON NORMALS: full ROM GENERAL: Yes normal visual inspection and Yes trachea midline Resp: COMMON NORMALS: normal respiratory effort, no retractions, no use of accessory muscles and clear to auscultation bilaterally EFFORT & INSPECTION: Yes able to speak in complete sentences, Yes symmetric chest movement and No tachypneic AUSCULTATION: clear to auscultation bilaterally Cardio: COMMON NORMALS: regular rate, regular rhythm, S1 normal heart sound, S2 normal heart sound and no murmurs RATE: regular rate RHYTHM: regular rhythm HEART SOUNDS: S1 normal and S2 normal GI: COMMON NORMALS: normal to inspection, nondistended, normoactive bowel sounds, soft to palpation and non-tender INSPECTION: Yes central obesity PALPATION: Yes soft Extremity: COMMON NORMALS: normal to inspection, full ROM and no clubbing, cyanosis or edema; negative for no pedal edema OTHER: -L lateral foot: noted open wound with macerated edges on plantar surface, hematoma noted, visible plantar fascia, no active drainage though prior dressing bloody. Some erythema (within demarcated area) and warmth to touch on dorsum. No tenderness to palpation -R foot: amputated 4th toe Neuro: COMMON NORMALS: oriented x3, moves all extremities, no focal motor deficits and no sensory deficits noted Psych: COMMON NORMALS: mental status grossly normal, thought process normal, cooperative, affect normal and speech normal SPEECH: Yes normal speech THOUGHT PROCESS: normal thought process Skin: COMMON NORMALS: no jaundice, no petechiae and no mottling GENERAL SKIN EXAM: erythema (of L foot (dorsum)) Data : 06/20/19 05:00 06/21/19 05:09 Micro: Microbiology 06/19/19 13:10 Blood Culture - Preliminary Blood NEGATIVE TO DATE 06/19/19 13:00 Blood Culture - Preliminary Blood NEGATIVE TO DATE 06/20/19 08:48 Gram Stain - Final Tissue A&P Assessment and plan (1) Diabetic foot infection: -Noted left diabetic foot infection; no osteomyelitis per imaging though upon probes to bone following bedside debridement -Patient has known history of poorly controlled insulin-dependent diabetes with associated peripheral neuropathy and nephropathy -Noted elevated ESR and CRP, leukocytosis with neutrophilic predominance now resolved -Noted area of erythema on dorsum of foot, area demarcated -Podiatry consult by Dr. Shaffer appreciated; s/p surgical debridement, I & D (POD # 1) -Patient had been on Bactrim PO -on Vancomycin/Zosyn due to duration of wound, hx of uncontrolled DM, failure of oral abx -f/u wound cx; prior wound cx done by PCP on 06/15 grew Proteus mirabilis, Strep, Staph aureus. Wound cx sent from OR, gram stain positive for GPC in clusters and pairs as well as GPRs -blood cx: prelim negative -imaging noted with phelgmon, no OM -NWB status on LLE -MONAE pending, clinically has diminished peripheral pulses bilaterally -wound vac per Dr. Shaffer once wound appropriate -will need retirement IV antibiotics, PICC line placement today Status: Acute (2) Diabetes type 2, uncontrolled: -has known IDDM type II, last A1c-11.2 -accuchecks, ISS, hypoglycemia precautions -diabetic diet -on long acting and meal time insulin; titrate as needed for optimal glycemic control Status: Chronic Qualifiers: Glycemic state: with hyperglycemia Qualified Code(s): E11.65 - Type 2 diabetes mellitus with hyperglycemia (3) Essential hypertension: -has known hx of HTN -VSS; continue to monitor -on ACEi Status: Chronic (4) Hyperlipidemia, mixed: Status: Chronic Additional A&P Information -hx of OM with amputation of R 4th toe -Morbid obesity: BMI-36 kg/m2 -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 Time Spent in Patient Care: 16 - 35 minutes (>than 50% of time spent in counselling and/or direct pt care on unit). Coding Level of Care Code Acute [employer] P[employer] Machine Operator for [facility] Diagnoses Diabetic foot infection E11.628; L08.9 Diabetes type 2, uncontrolled E11.65 Glycemic state: with hyperglycemia Essential hypertension I10 Hyperlipidemia, mixed E78.2
--- NOTE | 2019-06-21 08:44 | ANE.PACU2 ---
 Inpatient post-anesthesia follow up: Airway intact: Yes Vital signs: Temperature 98.2 F Pulse Rate [Monito r] 106 Pulse Rate 86 Respiratory Rate 18 Blood Pressure [Ri ght Arm] 142/121 Blood Pressure 159/84 Pulse Oximetry 98 Oxygen Delivery Me thod Room Air Oxygen Flow Rate Fraction of Inspir ed Oxygen Hydration adequate: Yes Nausea and vomiting: No Mental status: Baseline
[2019-06-21 09:24] LABS: Vancomycin Trough 9.2 ug/mL (10-15)
--- NOTE | 2019-06-21 09:24 | XR_ITS ---
WS: [id number] PORTABLE CHEST HISTORY: PICC LINE INSERTION COMPARISON: 09/24/2017 Right-sided PICC line has been placed with tip in distal SVC. No complications. Lungs are clear and well expanded. No pleural effusion or pneumothorax. Cardiac size: Normal. Mediastinum/Aorta: Normal mediastinum. No osseous abnormality seen. XR/XR chest 1V portable [id number] IMPRESSION: Satisfactory RIGHT PICC line placement.
[2019-06-21 11:05] VITALS: BP 150/78; PULSE 91; RESP 18; TEMP 36.9; O2SAT 98
[2019-06-21] MEDS: piperacillin-tazobactam 3.375 GM in sodium chloride 0.9% (plus) 50 ML IV ×2 (12:36→22:05)
[2019-06-21 15:51] VITALS: BP 141/81; PULSE 87; RESP 18; TEMP 36.8; O2SAT 98
[2019-06-21 20:00] VITALS: BP 127/74; PULSE 87; RESP 20; TEMP 37; O2SAT 95
[2019-06-21 22:13] LABS: Glucose Point of Care 225 mg/dL (70-110)
[2019-06-21 22:13] LABS: Glucose Point of Care 213 mg/dL (70-110)
[2019-06-21 22:13] LABS: Glucose Point of Care 256 mg/dL (70-110)
[2019-06-21 22:14] LABS: Glucose Point of Care 247 mg/dL (70-110)
[2019-06-22] VITALS: BP 151/83; PULSE 88; RESP 20; TEMP 36.7; O2SAT 97
[2019-06-22] MEDS: piperacillin-tazobactam 3.375 GM in sodium chloride 0.9% (plus) 50 ML IV ×3 (03:15→21:05)
[2019-06-22 04:00] VITALS: BP 125/78; PULSE 73; RESP 20; TEMP 36.6; O2SAT 96
[2019-06-22 06:23] LABS: Glucose Point of Care 155 mg/dL (70-110)
--- NOTE | 2019-06-22 06:59 | P.PN_ITS ---
Subjective Subjective: Interval history: Mr. Kruger is 2 days status post I&D left foot chronic nonhealing wound with abscess. Denies any acute events overnight. Tolerating regular diet. Denies any pain at this time to the left foot. PICC line placed yesterday. Patient reports that he experienced some sweating overnight, denies any feeling of fever or chills, denies nausea, has regular bob etite. He remained afebrile overnight. Vitals/I&O/Wt Last Vital Signs Temp 97.8 F 06/22/19 04:00 Pulse 73 06/22/19 04:00 Resp 20 H 06/22/19 04:00 BP 125/78 06/22/19 04:00 Pulse Ox 96 06/22/19 04:00 06/21/19 06/21/19 06/22/19 14:59 22:59 06:59 Intake Total 1930 / 1930 600 / 2530 50 / 2580 Output Total 800 / 800 600 / 1400 350 / 1750 Balance 1130 / 1130 0 / 1130 -300 / 830 Weight last 48 hrs Weight 242 lb 3.2 oz Weight 243 lb 14.4 oz Weight 246 lb 7 oz Weight 245 lb 8 oz Physical Exam Narrative: EXAM NARRATIVE: Const: COMMON NORMALS: no apparent distress, oriented x3 and alert ORIENTATION/CONSCIOUSNESS: Yes awake Lymph: LYMPHATIC: No lymphedema Resp: COMMON NORMALS: normal respiratory effort and no use of accessory muscles Cardio: COMMON NORMALS: negative for peripheral pulses 2+ throughout PERIPHERAL PULSES: No pulses 2+ throughout Extremity: COMMON NORMALS: negative for normal capillary refill (CFT 5 seconds bilateral hallux.) GENERAL: Yes amputation (History of right fourth toe amputation, site is well-healed.), No calf tenderness, Yes edema, Yes pulses abnormal (Dorsalis pedis arteries faintly palpable bilaterally. Posterior tibial artery palpable +1 bilaterally. Capillary refill time less than 5 seconds to the distal hallux bilaterally. Decreased hair growth at legs and feet.) and Yes monofilament exam performed RIGHT LOWER EXTREMITY: Yes ankle joint LEFT LOWER EXTREMITY: Yes ankle joint (Ankle joint dorsiflexion to neutral) and Yes foot & digits (History of partial right fourth ray amputation. Amputation site is well-healed.) OTHER: Ankle joint dorsiflexion to neutral Neuro: COMMON NORMALS: oriented x3 SENSORIUM/ORIENTATION: Yes alert MONOFILAMENT EXAM PERFORMED: Yes MOTOR EXAM: strength 5/5 throughout Skin: COMMON NORMALS: negative for no wounds GENERAL SKIN EXAM: atrophy, dry skin, erythema and scars (Amputation site right fourth ray) WOUNDS: Yes wounds noted (Wound at the plantar aspect of left foot sub-fifth metatarsal base has fibro-granular baseexposed to fascia measures 2 cm x 2.7 cm x 1.5 cm) HAIR: general thinning NAILS: yellow and thickened Sepsis: Is patient septic: No Data : 06/20/19 05:00 06/21/19 05:09 Micro: Microbiology 06/20/19 08:48 Gram Stain - Final Tissue Wound Culture - Preliminary Other data: ABIs performed right ankle-brachial index 1.1, left 1.09. A&P Assessment and plan (1) Non-pressure chronic ulcer 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: Status: Acute (2) Diabetes type 2, uncontrolled: Status: Chronic Qualifiers: Glycemic state: with hyperglycemia Qualified Code(s): E11.65 - Type 2 diabetes mellitus with hyperglycemia (3) Foot abscess, left: Status: Acute Improved erythema at the left foot, no purulence at the wound, no malodor. Patient is afebrile, no leukocytosis. Receiving vancomycin and Zosyn renally dosed. Wound cultures are pending. ABIs are normal. With improved appearance of wound wound VAC was applied with continuous negative pressure set at 125 mmHg. Excellent seal was obtained. Patient is to remain strict nonweightbearing to the left foot. [facility] will be dispensing a offloading shoe today. Patient okay for discharge from podiatry standpoint. Patient being set up with home health, PICC line placed yesterday, will narrow antibiotics once cultures are finalized. He will need follow-up in wound care next week. Attestations Medical Necessity Statement*: Diabetic foot infection, left foot with abscess. Coding Level of Care Code Acute Psychologist Educational for [facility] Fwd Exam Detailed Diagnoses Non-pressure chronic ulcer 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 L97.523 Diabetes type 2, uncontrolled E11.65 Glycemic state: with hyperglycemia Foot abscess, left L02.612
[2019-06-22 07:27] VITALS: BP 143/79; PULSE 77; RESP 18; TEMP 36.8; O2SAT 97
[2019-06-22] MEDS: heparin 5,000 unit/mL INJ 1 mL 5000 UNIT SUBCUT ×2 (08:34→16:15)
--- NOTE | 2019-06-22 09:03 | P.PN_ITS ---
Subjective Subjective: Interval history: POD # 2 s/p I & D. Dressing change done at bedside by Dr. Shaffer earlier this morning, wound VAC placed. Wound cultures pending. ABIs normal. Low Vanco trough. Accu-Cheks noted, will increase mealtime insulin for better glycemic control. Reports some diaphoresis overnight, afebrile. Medications: Reviewed: Yes Medication Review Details: Active Medications Generic Name Dose Route Start Last Admin Trade Name Freq PRN Reason Stop Dose Admin Acetaminophen 650 mg 06/19/19 15:18 06/20/19 21:03 Tylenol PO 650 mg Q6H PRN Administration Mild/Mod Pain Or Temp >/= 101 Aspirin 81 mg 06/20/19 09:00 06/21/19 07:38 Aspirin Ec PO 81 mg DAILY MANUELA Administration Dextrose 25 ml 06/19/19 16:06 D50w IVP ONCE PRN hypoglycemia prot ocol Protocol Dextrose 50 ml 06/19/19 16:06 D50w IVP PRN PRN hypoglycemia prot ocol Protocol Glucagon 1 mg 06/19/19 16:06 Glucagen IM ONCE PRN Adult Acute Hypog lycemia Prot. Protocol Heparin Sodium (Be ef Lung) 5,000 unit 06/19/19 16:15 06/22/19 08:34 Heparin SUBCUT 5,000 unit Q8H MANUELA Administration Dextrose 500 mls @ 100 mls /hr 06/19/19 16:06 D5w IV ONCE PRN Adult Acute Hypog lycemia Prot Protocol Piperacillin Sod/T azobactam 50 mls @ 12.5 mls /hr 06/20/19 13:00 06/22/19 03:15 Sod 3.375 gm/ So dium Chloride IV 12.5 mls/hr Q8H MANUELA Administration Protocol Vancomycin HCl 1,5 00 mg/ 250 mls @ 166.667 mls/hr 06/21/19 22:30 06/21/19 21:25 Sodium Chloride IV Infused Q12H MANUELA Infusion Protocol Insulin Aspart 0 unit 06/19/19 18:00 06/22/19 08:35 Novolog SUBCUT 6 unit WM&BEDTIME MANUELA Administration Protocol Insulin Aspart 10 unit 06/20/19 17:00 06/22/19 06:06 Novolog SUBCUT 10 unit TIDAC MANUELA Administration Insulin Detemir 50 unit 06/20/19 21:00 06/21/19 22:05 Levemir SUBCUT 50 unit BEDTIME MANUELA Administration Lisinopril 2.5 mg 06/21/19 09:00 06/21/19 07:38 Prinivil PO 2.5 mg DAILY MANUELA Administration Morphine Sulfate 2 mg 06/19/19 15:35 Morphine IVP Q4H PRN SEVERE PAIN No Known Allergies Allergy (Verified 06/16/19 12:27) Vitals/I&O/Wt Last Vital Signs Temp 98.2 F 06/22/19 07:27 Pulse 77 06/22/19 07:27 Resp 18 06/22/19 07:27 BP 143/79 06/22/19 07:27 Pulse Ox 97 06/22/19 07:27 06/21/19 06/22/19 06/22/19 22:59 06:59 14:59 Intake Total 850 / 2780 50 / 2830 620 / 620 Output Total 600 / 1400 350 / 1750 Balance 250 / 1380 -300 / 1080 620 / 620 Weight last 48 hrs Weight 109.86 kg Weight 110.631 kg Weight 111.782 kg Weight 111.357 kg Physical Exam 2 Const: COMMON NORMALS: no apparent distress and oriented x3 GENERAL APPEARANCE: cooperative and comfortable; not ill appearing NUTRITIONAL APPEARANCE: obese morbidly obese ORIENTATION/CONSCIOUSNESS: Yes awake HENMT: COMMON NORMALS: normocephalic, head/scalp atraumatic, hearing grossly normal bilaterally and moist oral mucous membranes HEAD & SCALP: normocephalic and atraumatic Eye: COMMON NORMALS: PERRL, EOMs intact bilaterally and conjunctivae normal CONJUNCTIVA: Yes conjunctivae normal PUPIL: Yes PERRL Neck/C-Spine: COMMON NORMALS: full ROM GENERAL: Yes normal visual inspection and Yes trachea midline Resp: COMMON NORMALS: normal respiratory effort, no retractions, no use of accessory muscles and clear to auscultation bilaterally EFFORT & INSPECTION: Yes able to speak in complete sentences, Yes symmetric chest movement and No tachypneic AUSCULTATION: clear to auscultation bilaterally Cardio: COMMON NORMALS: regular rate, regular rhythm, S1 normal heart sound, S2 normal heart sound and no murmurs RATE: regular rate RHYTHM: regular rhythm HEART SOUNDS: S1 normal and S2 normal GI: COMMON NORMALS: normal to inspection, nondistended, normoactive bowel sounds, soft to palpation and non-tender INSPECTION: Yes central obesity PALPATION: Yes soft Extremity: COMMON NORMALS: normal to inspection, full ROM and no clubbing, cyanosis or edema; negative for no pedal edema OTHER: -L lateral foot: from photo in record, wound bed appears to have good granulation tissue noted open wound with macerated edges on plantar surface, hematoma noted, visible plantar fascia, no active drainage though prior dressing bloody. Some erythema (within demarcated area) and warmth to touch on dorsum. No tenderness to palpation -R foot: amputated 4th toe Neuro: COMMON NORMALS: oriented x3, moves all extremities, no focal motor deficits and no sensory deficits noted Psych: COMMON NORMALS: mental status grossly normal, thought process normal, cooperative, affect normal and speech normal SPEECH: Yes normal speech THOUGHT PROCESS: normal thought process Skin: COMMON NORMALS: no jaundice, no petechiae and no mottling GENERAL SKIN EXAM: erythema (of L foot (dorsum)) Data : 06/20/19 05:00 06/21/19 05:09 Micro: Microbiology 06/20/19 08:48 Gram Stain - Final Tissue Wound Culture - Preliminary A&P Assessment and plan (1) Diabetic foot infection: -Noted left diabetic foot infection; no osteomyelitis per imaging though upon probes to bone following bedside debridement -Patient has known history of poorly controlled insulin-dependent diabetes with associated peripheral neuropathy and nephropathy -Noted elevated ESR and CRP, leukocytosis with neutrophilic predominance resolved -Noted area of erythema on dorsum of foot, area demarcated -Podiatry consult by Dr. Shaffer appreciated; s/p surgical debridement, I & D (POD # 2) -Patient had been on Bactrim PO -on Vancomycin/Zosyn due to duration of wound, hx of uncontrolled DM, failure of oral abx -f/u wound cx; prior wound cx done by PCP on 06/15 grew Proteus mirabilis, Strep, Staph aureus. Wound cx sent from OR pending, gram stain positive for GPC in clusters and pairs as well as GPRs. Due to complexity of wound, underlying poorly controlled DM, will need to wait for culture results before discharge -blood cx: prelim negative -imaging noted with phelgmon, no OM -NWB status on LLE -ABIs normal, clinically has diminished peripheral pulses bilaterally -wound vac placed by Dr. Shaffer today -needs care home IV antibiotics, PICC line placed Status: Acute (2) Diabetes type 2, uncontrolled: -has known IDDM type II, last A1c-11.2 -accuchecks, ISS, hypoglycemia precautions -diabetic diet -on long acting and meal time insulin; titrate as needed for optimal glycemic control Status: Chronic Qualifiers: Glycemic state: with hyperglycemia Qualified Code(s): E11.65 - Type 2 diabetes mellitus with hyperglycemia (3) Essential hypertension: -has known hx of HTN -VSS; continue to monitor -on ACEi Status: Chronic (4) Hyperlipidemia, mixed: Status: Chronic Additional A&P Information -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 Time Spent in Patient Care: 16 - 35 minutes (>than 50% of time spent in counselling and/or direct pt care on unit) . Coding Level of Care Code Acute Marketing Underwriter for g Fwd Exam Comprehensive Diagnoses Diabetic foot infection E11.628; L08.9 Diabetes type 2, uncontrolled E11.65 Glycemic state: with hyperglycemia Essential hypertension I10 Hyperlipidemia, mixed E78.2
[2019-06-22] MEDS: lisinopril 2.5 mg Tablet PO (09:20)
[2019-06-22] MEDS: acetaminophen 325 mg Tablet 650 MG PO (09:20)
[2019-06-22] MEDS: aspirin 81 mg EC Tablet PO (09:20)
[2019-06-22 11:15] LABS: Glucose Point of Care 205 mg/dL (70-110)
[2019-06-22 11:38] VITALS: BP 166/83; PULSE 75; RESP 18; TEMP 36.5; O2SAT 99
--- NOTE | 2019-06-22 12:53 | USCV_ITS ---
Martir Kruger Age: 54 Gender: M : 1965 Exam Date: 06/22/2019 13:18 Ordering Phys: Cordelia Story MD Technologist: Yasmin Morrell [place] [facility] [place]ication: NON HEALING ULCER HISTORY: Lower extremity pain. PROCEDURES: Venous duplex imaging was performed in bilateral lower extremities. The following venous structures were evaluated: common femoral vein, profunda vein, proximal portion of the greater saphenous vein, superficial femoral vein, and the popliteal vein. In addition, the posterior tibial and peroneal trunk were evaluated. Serial compression, augmentation maneuvers, and spectral Doppler flow evaluation were performed. FINDINGS: Normal 2-D Doppler and augmentation and compressibility throughout the lower extremity venous structures. Additional imaging through the proximal calf veins also reveals no thrombus. Limited evaluation of the greater saphenous vein is patent with no thrombus. CONCLUSIONS No DVT bilateral lower extremities. Dr. Inez Gordon DO (Electronically Signed) Final Date: 22 June 2019 16:11 S
[2019-06-22 15:59] VITALS: BP 166/91; PULSE 81; RESP 18; TEMP 36.9; O2SAT 97
[2019-06-22 16:46] LABS: Glucose Point of Care 173 mg/dL (70-110)
[2019-06-22 20:00] VITALS: BP 155/78; PULSE 82; RESP 18; TEMP 36.6; O2SAT 98
[2019-06-22 21:17] LABS: Glucose Point of Care 207 mg/dL (70-110)
[2019-06-23] VITALS: BP 148/79; PULSE 78; RESP 17; TEMP 36.5; O2SAT 97
[2019-06-23] MEDS: heparin 5,000 unit/mL INJ 1 mL 5000 UNIT SUBCUT ×2 (03:51→10:03)
[2019-06-23 04:00] VITALS: BP 142/76; PULSE 75; RESP 18; TEMP 36.6; O2SAT 97
[2019-06-23] MEDS: piperacillin-tazobactam 3.375 GM in sodium chloride 0.9% (plus) 50 ML IV ×2 (04:41→12:46)
[2019-06-23 06:57] LABS: Glucose Point of Care 133 mg/dL (70-110)
[2019-06-23 07:31] VITALS: BP 102/84; PULSE 83; RESP 18; TEMP 36.8; O2SAT 98
--- NOTE | 2019-06-23 08:13 | P.PN_ITS ---
Subjective Subjective: Interval history: Mr. Kruger is 3 days status post left foot I&D, showing improvement. Denies any acute events overnight. Denies pain to the left foot. Patient denies any subjective nausea, vomiting, fever, chills, shortness of breath or chest pain. Vitals/I&O/Wt Last Vital Signs Temp 98.2 F 06/23/19 07:31 Pulse 83 06/23/19 07:31 Resp 18 06/23/19 07:31 BP 102/84 06/23/19 07:31 Pulse Ox 98 06/23/19 07:31 06/22/19 06/23/19 06/23/19 22:59 06:59 14:59 Intake Total 780 / 2338 1260 / 3598 Output Total 2575 / 3275 800 / 4075 Balance -1795 / -937 460 / -477 Weight last 48 hrs Weight 245 lb 6.4 oz Weight 242 lb 3.2 oz Weight 243 lb 14.4 oz Physical Exam Const: COMMON NORMALS: no apparent distress, oriented x3 and alert ORIENTATION/CONSCIOUSNESS: Yes awake Lymph: LYMPHATIC: No lymphedema Resp: COMMON NORMALS: normal respiratory effort and no use of accessory muscles Cardio: COMMON NORMALS: negative for peripheral pulses 2+ throughout PERIPHERAL PULSES: No pulses 2+ throughout Extremity: COMMON NORMALS: negative for normal capillary refill (CFT 5 seconds bilateral hallux.) GENERAL: Yes amputation (History of right fourth toe amputation, site is well-healed.), No calf tenderness, Yes edema, Yes pulses abnormal (Dorsalis pedis arteries faintly palpable bilaterally. Posterior tibial artery palpable +1 bilaterally. Capillary refill time less than 5 seconds to the distal hallux bilaterally. Decreased hair growth at legs and feet.) and Yes monofilament exam performed RIGHT LOWER EXTREMITY: Yes ankle joint LEFT LOWER EXTREMITY: Yes ankle joint (Ankle joint dorsiflexion to neutral) and Yes foot & digits (History of partial right fourth ray amputation. Amputation site is well-healed.) OTHER: Ankle joint dorsiflexion to neutral Neuro: COMMON NORMALS: oriented x3 SENSORIUM/ORIENTATION: Yes alert MONOFILAMENT EXAM PERFORMED: Yes MOTOR EXAM: strength 5/5 throughout Skin: COMMON NORMALS: negative for no wounds GENERAL SKIN EXAM: atrophy, dry skin, no erythema and scars (Amputation site right fourth ray) WOUNDS: Yes wounds noted (Wound VAC left intact, good seal, 125 mmHg negative pressure continuous. No lymphangitic streaking or erythema appreciated.) HAIR: general thinning NAILS: yellow and thickened Sepsis: Is patient septic: No Data : 06/20/19 05:00 06/21/19 05:09 Micro: Microbiology 06/20/19 08:48 Gram Stain - Final Tissue Wound Culture - Preliminary Gram Negative Rods A&P Assessment and plan (1) Non-pressure chronic ulcer 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: Status: Acute (2) Diabetes type 2, uncontrolled: Status: Chronic Qualifiers: Glycemic state: with hyperglycemia Qualified Code(s): E11.65 - Type 2 diabetes mellitus with hyperglycemia (3) Foot abscess, left: Status: Acute Continued improvement to the left foot with decreased erythema. Patient remains afebrile. Wound VAC dressing left intact this was applied 06/22/2019. Awaiting cultures prior to discharge with IV antibiotics with wound care follow- up on Wednesday the . Patient is to remain nonweightbearing to the left foot. If he remains inpatient I will change the wound VAC dressing tomorrow a.m. Attestations Medical Necessity Statement*: Diabetic foot infection with abscess left foot Coding Level of Care Code Acute Speech Therapist Technician for [facility] Fwd Diagnoses Non-pressure chronic ulcer 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 L97.523 Diabetes type 2, uncontrolled E11.65 Glycemic state: with hyperglycemia Foot abscess, left L02.612
[2019-06-23] MEDS: aspirin 81 mg EC Tablet PO (08:50)
[2019-06-23] MEDS: lisinopril 2.5 mg Tablet PO (08:50)
[2019-06-23 10:50] LABS: Glucose Point of Care 239 mg/dL (70-110)
[2019-06-23 11:50] VITALS: BP 146/84; PULSE 81; RESP 18; TEMP 36.8; O2SAT 81
--- NOTE | 2019-06-23 14:09 | PM.DCS ---
Discharge Providers Date of Admission: 06/19/19 14:04 Date of Discharge: June 23, 2019 Attending Provider at Admission: Cordelia Story MD Attending Provider at Discharge: Cordelia Story MD Primary Care Provider: DAGOBERTO Patel Diagnoses at Discharge Discharge Diagnosis (1) Non-pressure chronic ulcer 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: Status: Acute Problem details: -Noted left diabetic foot infection; no osteomyelitis per imaging though upon probes to bone following bedside debridement -Patient has known history of poorly controlled insulin-dependent diabetes with associated peripheral neuropathy and nephropathy -Noted elevated ESR and CRP, leukocytosis with neutrophilic predominance resolved -Noted area of erythema on dorsum of foot, area demarcated -Podiatry consult by Dr. Shaffer appreciated; s/p surgical debridement, I & D (POD # 3) -Patient had been on Bactrim PO -on Vancomycin/Zosyn due to duration of wound, hx of uncontrolled DM, failure of oral abx -f/u wound cx; prior wound cx done by PCP on 06/15 grew Proteus mirabilis, Strep, Staph aureus. Wound cx sent from OR with noted Proteus mirabilis and Strep bovis, sensitivity noted, gram stain positive for GPC in clusters and pairs as well as GPRs. Due to complexity of wound, underlying poorly controlled DM, will need to wait for culture results before discharge -blood cx: prelim negative -imaging noted with phelgmon, no OM -NWB status on LLE -ABIs normal, clinically has diminished peripheral pulses bilaterally -wound vac placed by Dr. Shaffer on 06/21 -needs terminal gauger supervisor IV antibiotics, PICC line placed (2) Diabetes type 2, uncontrolled: Status: Chronic Problem details: -has known IDDM type II, last A1c-11.2 -accuchecks, ISS, hypoglycemia precautions -diabetic diet -on long acting and meal time insulin; titrate as needed for optimal glycemic control Qualifiers: Glycemic state: with hyperglycemia Qualified Code(s): E11.65 - Type 2 diabetes mellitus with hyperglycemia (3) Foot abscess, left: Status: Acute (4) Essential hypertension: Status: Chronic Problem details: -has known hx of HTN -VSS; continue to monitor -on ACEi (5) Hyperlipidemia, mixed: Status: Chronic Other Information Additional DC diagnoses/information: -hx of OM with amputation of R 4th toe -Morbid obesity: BMI-36 kg/m2 -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 Podiatry was consulted and patient had surgical incision and drainage of the wound with cultures sent from the OR. With continued antibiotic treatment and appropriate wound care, leukocytosis has resolved, and wound has been healing appropriately enough for a wound VAC to be placed by Dr. Shaffer. Due to complicated nature and length of the wound as well as patient's underlying uncontrolled diabetes, he will need continued IV antibiotic therapy for approximately 6 weeks to allow complete resolution of infection. As such PICC line was placed for this purpose and home health has been arranged for continued IV antibiotic administration as well as appropriate wound care. Ceftriaxone was chosen based on sensitivity profile from wound cultures, cost, ease of administration, and patient's noted underlying renal impairment. Patient will need to continue to follow-up at the wound care clinic and is to have appropriate dressing changes done by home health nurse. He has been afebrile, he is to be nonweightbearing on the left foot and encouraged to elevate the left lower extremity to avoid edema. He has been counseled on need to continue to monitor his blood glucose and be compliant with insulin regimen. He was evaluated with venous and arterial duplexes, ABIs are normal and there was no noted DVT bilaterally. Per [facility] request, weekly CBC, CMP have been ordered. Discharge Summary: -Patient to follow up with primary care provider within 1 week -Patient to follow up with Dr. Coronel on Sunday 06/25 as scheduled in wound care clinic Physical Exam Const: COMMON NORMALS: no apparent distress and oriented x3 GENERAL APPEARANCE: cooperative and comfortable; not ill appearing NUTRITIONAL APPEARANCE: obese morbidly obese ORIENTATION/CONSCIOUSNESS: Yes awake HENMT: COMMON NORMALS: normocephalic, head/scalp atraumatic, hearing grossly normal bilaterally and moist oral mucous membranes HEAD & SCALP: normocephalic and atraumatic Eye: COMMON NORMALS: PERRL, EOMs intact bilaterally and conjunctivae normal CONJUNCTIVA: Yes conjunctivae normal PUPIL: Yes PERRL Neck/C-Spine: COMMON NORMALS: full ROM GENERAL: Yes normal visual inspection and Yes trachea midline Resp: COMMON NORMALS: normal respiratory effort, no retractions, no use of accessory muscles and clear to auscultation bilaterally EFFORT & INSPECTION: Yes able to speak in complete sentences, Yes symmetric chest movement and No tachypneic AUSCULTATION: clear to auscultation bilaterally Cardio: COMMON NORMALS: regular rate, regular rhythm, S1 normal heart sound, S2 normal heart sound and no murmurs RATE: regular rate RHYTHM: regular rhythm HEART SOUNDS: S1 normal and S2 normal GI: COMMON NORMALS: normal to inspection, nondistended, normoactive bowel sounds, soft to palpation and non-tender INSPECTION: Yes central obesity PALPATION: Yes soft Extremity: COMMON NORMALS: normal to inspection, full ROM and no clubbing, cyanosis or edema; negative for no pedal edema OTHER: -L lateral foot: wound vac with bulky dressing in place -R foot: amputated 4th toe Neuro: COMMON NORMALS: oriented x3, moves all extremities, no focal motor deficits and no sensory deficits noted Psych: COMMON NORMALS: mental status grossly normal, thought process normal, cooperative, affect normal and speech normal SPEECH: Yes normal speech THOUGHT PROCESS: normal thought process Skin: COMMON NORMALS: no jaundice, no petechiae and no mottling Discharge Data Data Completed and Pending: Completed Studies During Hospitalization Category Date Time Status CT foot LT w con 80400 Urgent Cat Scan 06/19/19 12:58 Completed CXRP [XR chest 1V portable 01102] R outine Exams 06/21/19 09:24 Completed XR foot LT min 3V * 09996 Stat Exams 06/19/19 12:58 Completed CV ankle brachial index 57926 Stat Ultrasound 06/19/19 15:18 [place] [address] Routin e Ultrasound 06/22/19 12:53 Completed Pending at discharge Category Date Time Status Blood Culture Sta t Lab 06/19/19 13:10 Results Vancomycin Trough Timed Lab 06/23/19 21:30 Ordered Wound Culture and Gram Stain Routin e Lab 06/20/19 08:48 Results Labs from last 24 hours 06/23/19 06/23/19 06/22/19 10:47 06:47 21:06 POC Glucose 239 133 207 06/22/19 16:39 POC Glucose 173 Vitals: Last Vital Signs Temp 98.3 F 06/23/19 11:50 Pulse 81 06/23/19 11:50 Resp 18 06/23/19 11:50 BP 146/84 06/23/19 11:50 Pulse Ox 81 L 06/23/19 11:50 Discharge Plan Discharge Patient Disposition: Home Health Service Condition: Stable Prescriptions: New ceftriaxone 2 gram recon soln 2 gm IV Q24H 42 Days Qty: 42 RF: 0 Continued aspirin [Adult Aspirin Regimen] 81 mg tablet,delayed release (DR/EC) 81 mg PO DAILY RF: 0 lisinopril 2.5 mg tablet 2.5 mg PO DAILY RF: 0 multivitamin [Daily Multi-Vitamin] Tablet 1 tab PO DAILY RF: 0 metformin 1,000 mg tablet extended release 24hr 1,000 mg PO DAILY Qty: 90 RF: 0 Byetta 10 mcg/dose(250 mcg/mL) 2.4 mL pen injector 10 mcg SUBCUT BID Qty: 2.4 RF: 2 Levemir FlexTouch U-100 Insuln 100 unit/mL (3 mL) insulin pen 50 unit SUBCUT DAILY Qty: 15 RF: 0 Changed Humalog KwikPen Insulin 200 unit/mL (3 mL) insulin pen 15 unit SUBCUT TID Qty: 6 RF: 1 Discontinued sulfamethoxazole-trimethoprim [Bactrim DS] 800-160 mg tablet 1 tab PO BID 10 Days Qty: 20 RF: 0 Discharge Orders: Discharge Order (Routine); Ordered 06/23/19 Ordered By: Cordelia Story Other Ambulatory Orders: DME: Walker (Order) Location: None Selected Ordered By: Cordelia Story DME: Wound Vac (Order) Location: None Selected Ordered By: Trace Shaffer Referrals: [facility] ([facility]) [Outside] Cuca Coronel DO [Emergency Department] - 06/26/19 9:45 am (At wound care clinic; follow up on R diabetic foot infection; is on IV ceftriaxone x 6 weeks, has wound vac she will see the patient at wound care clinic [phone]) Spencer Plata FNP-C [Primary Care Provider] - 06/27/19 9:40 am (Post hospital discharge follow up. Treated for R diabetic foot infection, on Ceftriaxone x 6 weeks. ) Discharge Diet: Diabetic Discharge Activity: Limit activity as instructed Patient Instructions: Ceftriaxone (Injection), Obesity (DC), Diabetic Foot Ulcers (DC), Skin Abscess, Wound Care (General) Discharge Date/Time: 06/23/19 16:50 Discharge Attestations Time Spent in Discharge Care*: greater than 30 min Specific Discharge Activities: Specific discharge activities: educating patient, discussing with disease case manager rn/social workers/dc planners, documenting/other paperwork and evaluating patient/reviewing data Status at Discharge: Cognitive status at discharge: cognitively intact, Behavioral status at discharge: cooperative, Functional status at discharge: other assisted ambulation (NWB on the L) Quality Metrics Clinical Quality Measures During this hospital stay, did patient experience: None Coding Level of Care Code Acute Junior Software Developer for Paula Fwd Exam Comprehensive Diagnoses Non-pressure chronic ulcer 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 L97.523 Diabetes type 2, uncontrolled E11.65 Glycemic state: with hyperglycemia Foot abscess, left L02.612 Essential hypertension I10 Hyperlipidemia, mixed E78.2
[2019-06-23 15:03] VITALS: BP 146/84; PULSE 81; RESP 18; TEMP 36.8; O2SAT 81
[2019-06-23] MEDS: cefTRIAXone 2,000 MG in sodium chloride 0.9% (plus) 50 ML 100 MG IV (15:17)
[2019-06-23 15:45] VITALS: BP 145/87; PULSE 90; RESP 18; TEMP 36.9; O2SAT 97
== END 2019-06-23 16:50 | disposition home health service (06) | DRG 623 ==
LOC: ER 14:57 → MEDSURG 14:58
PROVIDERS: Podiatrist Foot & Ankle Surgery; Admitting Provider Family Medicine; Emergency Provider Family Medicine; Family Provider Nurse Practitioner; PCP Nurse Practitioner; Visit Provider Family Medicine
PROC: 0KBW0ZZ Excision of Left Foot Muscle, Open Approach (ICD-10-PCS; principal; 2019-06-20 07:35)
DX: E11.621 Type 2 diabetes mellitus with foot ulcer (principal); L97.525 Non-pressure chronic ulcer of other part of left foot with muscle involvement without evidence of necrosis; L02.612 Cutaneous abscess of left foot; E87.1 Hypo-osmolality and hyponatremia; E11.65 Type 2 diabetes mellitus with hyperglycemia; E11.22 Type 2 diabetes mellitus with diabetic chronic kidney disease; I12.9 Hypertensive chronic kidney disease with stage 1 through stage 4 chronic kidney disease, or unspecified chronic kidney disease; N18.3 Chronic kidney disease, stage 3 (moderate); E11.42 Type 2 diabetes mellitus with diabetic polyneuropathy; E11.21 Type 2 diabetes mellitus with diabetic nephropathy; E66.9 Obesity, unspecified; Z68.36 Body mass index [BMI] 36.0-36.9, adult; B96.4 Proteus (mirabilis) (morganii) as the cause of diseases classified elsewhere; B95.4 Other streptococcus as the cause of diseases classified elsewhere; Z89.421 Acquired absence of other right toe(s); Z79.4 Long term (current) use of insulin; E87.5 Hyperkalemia; E78.2 Mixed hyperlipidemia; N17.9 Acute kidney failure, unspecified; Z79.82 Long term (current) use of aspirin
CPT/HCPCS: 11042; 12345; 36415; 36416; 36569; 71045; 73630; 73701; 80048; 80053; 80202; 82962; 83690; 85025; 85651; 86140; 87040; 87070; 87077; 87186; 87205; 93922; 93970; 96372; 99283; J0696; J1644; J1815; J2001; J2543; J2704; J3010; J3370; J3490; J7030; J7050; Q9967

== ENCOUNTER 2019-07-01 14:09 | Outpatient (CLI) | payer BC, SELFPAY ==
[2019-07-01 14:21] LABS: Basophils % 0.7 %; Eosinophils # 0.1 10^3/uL (0.0-0.8); Eosinophils % 1.3 %; Hematocrit 44.1 % (42.0-52.0); Hemoglobin 13.9 g/dL (11.7-16.6); Lymphocytes # 1.7 10^3/uL (0.8-4.8); Lymphocytes % 31.7 %; Mean Corpuscular HGB Conc 31.5 g/dL (30.0-36.0); Mean Corpuscular Hemoglobin 27.3 pg (28.0-34.0); Mean Corpuscular Volume 86.6 fL (80-94); Mean Platelet Volume 10.3 fL (7.4-10.4); Monocytes # 0.5 10^3/uL (0.2-0.9); Monocytes % 8.9 %; Neutrophils % 56.3 %; Nucleated Red Blood Cells % 0 %; Platelet Count 293 10^3/cmm (130-400); Red Blood Count 5.09 10^6/uL (4.1-5.3); Red Cell Distribution Width 12.5 % (12.1-15.1); White Blood Count 5.4 10^3/uL (4.0-10.0)
[2019-07-01 14:38] LABS: Alanine Aminotransferase 35 U/L (0-41); Albumin Level 4.5 g/dL (3.5-5.2); Alkaline Phosphatase 67 IU/L (40-130); Aspartate Amino Transferase 21 U/L (0-40); Blood Urea Nitrogen 22 mg/dL (6-20); Calcium 10.3 mg/dL (8.5-10.5); Carbon Dioxide 30 mmol/L (22-29); Chloride 98 mmol/L (98-107); Globulin 3.6 g/dL (1.3-4.6); Glomerular Filtration Rate 57.1 mL/min (90-130); Glucose 113 mg/dL (65-115); Osmolality Calculated 283 mOsm/kg (285-295); Sodium 138 mmol/L (136-145); Total Bilirubin 0.3 mg/dL (0.15-1.2); Total Protein 8.1 g/dL (6.6-8.7)
== END 2019-07-01 14:10 | disposition home or self-care (01) ==
LOC: LAB 14:12
PROVIDERS: Family Provider Nurse Practitioner; PCP Nurse Practitioner; Visit Provider Family Medicine
DX: E11.621 Type 2 diabetes mellitus with foot ulcer (principal)
CPT/HCPCS: 80053; 85025

== ENCOUNTER 2019-07-03 08:50 | Outpatient (RCR) | payer BC, SELFPAY | END 2019-07-06 23:59 | disposition home or self-care (01) | LOC: WOUND 08:50 | PROVIDERS: Family Provider Nurse Practitioner; PCP Nurse Practitioner; Visit Provider Nurse Practitioner Family | DX: E11.621 Type 2 diabetes mellitus with foot ulcer (principal); L97.522 Non-pressure chronic ulcer of other part of left foot with fat layer exposed | CPT/HCPCS: 11044; 87070; 87077; 87176; 87186; 87205; L3260 ==

== ENCOUNTER 2019-07-08 16:25 | Outpatient (CLI) | payer BC, SELFPAY ==
[2019-07-08 17:10] LABS: Basophils % 0.6 %; Eosinophils # 0.1 10^3/uL (0.0-0.8); Eosinophils % 1.2 %; Hematocrit 42.1 % (42.0-52.0); Hemoglobin 13.2 g/dL (11.7-16.6); Lymphocytes # 1.3 10^3/uL (0.8-4.8); Lymphocytes % 24.7 %; Mean Corpuscular HGB Conc 31.4 g/dL (30.0-36.0); Mean Corpuscular Hemoglobin 27.7 pg (28.0-34.0); Mean Corpuscular Volume 88.3 fL (80-94); Mean Platelet Volume 10.5 fL (7.4-10.4); Monocytes # 0.5 10^3/uL (0.2-0.9); Monocytes % 8.9 %; Neutrophils # 3.3 10^3/uL (1.8-7.7); Neutrophils % 63.6 %; Nucleated Red Blood Cells % 0 %; Platelet Count 251 10^3/cmm (130-400); Red Blood Count 4.77 10^6/uL (4.1-5.3); Red Cell Distribution Width 12.9 % (12.1-15.1); White Blood Count 5.2 10^3/uL (4.0-10.0)
[2019-07-08 17:35] LABS: Alanine Aminotransferase 30 U/L (0-41); Albumin Level 4.1 g/dL (3.5-5.2); Alkaline Phosphatase 61 IU/L (40-130); Anion Gap 20.1 (5-19); Aspartate Amino Transferase 24 U/L (0-40); Blood Urea Nitrogen 24 mg/dL (6-20); Carbon Dioxide 25 mmol/L (22-29); Chloride 95 mmol/L (98-107); Globulin 3.1 g/dL (1.3-4.6); Glomerular Filtration Rate 52.4 mL/min (90-130); Glucose 133 mg/dL (65-115); Osmolality Calculated 281 mOsm/kg (285-295); Potassium 4.1 mmol/L (3.5-5.1); Sodium 136 mmol/L (136-145); Total Bilirubin 0.2 mg/dL (0.15-1.2); Total Protein 7.2 g/dL (6.6-8.7)
== END 2019-07-08 16:26 | disposition home or self-care (01) ==
LOC: LAB 16:27
PROVIDERS: Family Provider Nurse Practitioner; PCP Nurse Practitioner; Visit Provider Emergency Medicine
DX: M86.9 Osteomyelitis, unspecified (principal)
CPT/HCPCS: 80053; 85025

== ENCOUNTER 2019-07-10 09:30 | Outpatient (CLI) | payer BC, SELFPAY | END 2019-07-10 09:31 | disposition home or self-care (01) | LOC: WOUND 13:34 | PROVIDERS: Family Provider Nurse Practitioner; PCP Nurse Practitioner; Visit Provider Emergency Medicine | DX: E11.621 Type 2 diabetes mellitus with foot ulcer (principal); L97.522 Non-pressure chronic ulcer of other part of left foot with fat layer exposed | CPT/HCPCS: 11042; 97605 ==

== ENCOUNTER 2019-07-15 16:37 | Outpatient (CLI) | payer BC, SELFPAY ==
[2019-07-15 17:04] LABS: Basophils % 0.7 %; Eosinophils # 0.1 10^3/uL (0.0-0.8); Hematocrit 40.1 % (42.0-52.0); Hemoglobin 12.8 g/dL (11.7-16.6); Lymphocytes # 1.6 10^3/uL (0.8-4.8); Lymphocytes % 29.5 %; Mean Corpuscular HGB Conc 31.9 g/dL (30.0-36.0); Mean Corpuscular Hemoglobin 27.3 pg (28.0-34.0); Mean Corpuscular Volume 85.5 fL (80-94); Mean Platelet Volume 10.7 fL (7.4-10.4); Monocytes # 0.5 10^3/uL (0.2-0.9); Monocytes % 9.1 %; Neutrophils # 3.2 10^3/uL (1.8-7.7); Neutrophils % 57.8 %; Nucleated Red Blood Cells % 0 %; Platelet Count 239 10^3/cmm (130-400); Red Blood Count 4.69 10^6/uL (4.1-5.3); Red Cell Distribution Width 12.6 % (12.1-15.1); White Blood Count 5.5 10^3/uL (4.0-10.0)
[2019-07-15 17:17] LABS: Alanine Aminotransferase 26 U/L (0-41); Albumin Level 4.2 g/dL (3.5-5.2); Alkaline Phosphatase 64 IU/L (40-130); Anion Gap 17.3 (5-19); Aspartate Amino Transferase 25 U/L (0-40); Blood Urea Nitrogen 19 mg/dL (6-20); Calcium 9.5 mg/dL (8.5-10.5); Carbon Dioxide 26 mmol/L (22-29); Chloride 97 mmol/L (98-107); Globulin 2.9 g/dL (1.3-4.6); Glomerular Filtration Rate 57.1 mL/min (90-130); Glucose 143 mg/dL (65-115); Osmolality Calculated 281 mOsm/kg (285-295); Potassium 4.3 mmol/L (3.5-5.1); Sodium 136 mmol/L (136-145); Total Bilirubin 0.2 mg/dL (0.15-1.2); Total Protein 7.1 g/dL (6.6-8.7)
== END 2019-07-15 16:38 | disposition home or self-care (01) ==
LOC: LAB 16:38
PROVIDERS: PCP Nurse Practitioner; Visit Provider Emergency Medicine
DX: E11.621 Type 2 diabetes mellitus with foot ulcer (principal)
CPT/HCPCS: 80053; 85025

== ENCOUNTER 2019-07-17 10:17 | Outpatient (CLI) | payer BC, SELFPAY | END 2019-07-17 10:18 | disposition home or self-care (01) | LOC: WOUND 10:18 | PROVIDERS: PCP Nurse Practitioner; Visit Provider Nurse Practitioner Family | DX: E11.621 Type 2 diabetes mellitus with foot ulcer (principal); L97.522 Non-pressure chronic ulcer of other part of left foot with fat layer exposed | CPT/HCPCS: 11042; 87070; 87077; 87106; 87176; 87186; 87205; 97605 ==

== ENCOUNTER 2019-07-22 17:26 | Outpatient (CLI) | payer BC, SELFPAY ==
[2019-07-22 17:41] LABS: Basophils % 0.2 %; Eosinophils # 0.1 10^3/uL (0.0-0.8); Eosinophils % 1.6 %; Hematocrit 40.8 % (42.0-52.0); Hemoglobin 13.4 g/dL (11.7-16.6); Lymphocytes # 1.4 10^3/uL (0.8-4.8); Lymphocytes % 30.9 %; Mean Corpuscular HGB Conc 32.8 g/dL (30.0-36.0); Mean Corpuscular Hemoglobin 28.6 pg (28.0-34.0); Mean Platelet Volume 10.6 fL (7.4-10.4); Monocytes # 0.5 10^3/uL (0.2-0.9); Monocytes % 10.4 %; Neutrophils # 2.5 10^3/uL (1.8-7.7); Nucleated Red Blood Cells % 0 %; Platelet Count 225 10^3/cmm (130-400); Red Blood Count 4.69 10^6/uL (4.1-5.3); Red Cell Distribution Width 12.7 % (12.1-15.1); White Blood Count 4.5 10^3/uL (4.0-10.0)
[2019-07-22 17:53] LABS: Alanine Aminotransferase 28 U/L (0-41); Albumin Level 4.5 g/dL (3.5-5.2); Alkaline Phosphatase 69 IU/L (40-130); Anion Gap 16.8 (5-19); Aspartate Amino Transferase 23 U/L (0-40); Blood Urea Nitrogen 21 mg/dL (6-20); Carbon Dioxide 31 mmol/L (22-29); Chloride 95 mmol/L (98-107); Globulin 2.8 g/dL (1.3-4.6); Glomerular Filtration Rate 52.4 mL/min (90-130); Glucose 197 mg/dL (65-115); Osmolality Calculated 288 mOsm/kg (285-295); Potassium 4.8 mmol/L (3.5-5.1); Sodium 138 mmol/L (136-145); Total Bilirubin 0.2 mg/dL (0.15-1.2); Total Protein 7.3 g/dL (6.6-8.7)
== END 2019-07-22 17:27 | disposition home or self-care (01) ==
LOC: LAB 17:27
PROVIDERS: PCP Nurse Practitioner; Visit Provider Podiatrist Foot & Ankle Surgery
DX: L98.499 Non-pressure chronic ulcer of skin of other sites with unspecified severity (principal); E11.622 Type 2 diabetes mellitus with other skin ulcer
CPT/HCPCS: 80053; 85025

== ENCOUNTER 2019-07-24 09:10 | Outpatient (CLI) | payer BC, SELFPAY | END 2019-07-24 09:11 | disposition home or self-care (01) | LOC: WOUND 09:12 | PROVIDERS: Absent Provider Nurse Practitioner Family; PCP Nurse Practitioner; Visit Provider Nurse Practitioner Family | DX: E11.621 Type 2 diabetes mellitus with foot ulcer (principal); L97.522 Non-pressure chronic ulcer of other part of left foot with fat layer exposed | CPT/HCPCS: 11042; 97605 ==

== ENCOUNTER 2019-07-29 16:37 | Outpatient (CLI) | payer BC, SELFPAY ==
[2019-07-29 16:48] LABS: Basophils % 0.5 %; Eosinophils # 0.1 10^3/uL (0.0-0.8); Eosinophils % 1.2 %; Hemoglobin 12.7 g/dL (11.7-16.6); Lymphocytes # 1.5 10^3/uL (0.8-4.8); Lymphocytes % 25.7 %; Mean Corpuscular HGB Conc 31.8 g/dL (30.0-36.0); Mean Corpuscular Hemoglobin 27.6 pg (28.0-34.0); Mean Platelet Volume 10.7 fL (7.4-10.4); Monocytes # 0.5 10^3/uL (0.2-0.9); Monocytes % 8.6 %; Neutrophils # 3.6 10^3/uL (1.8-7.7); Neutrophils % 63.5 %; Nucleated Red Blood Cells % 0 %; Platelet Count 255 10^3/cmm (130-400); Red Cell Distribution Width 12.6 % (12.1-15.1); White Blood Count 5.7 10^3/uL (4.0-10.0)
[2019-07-29 17:06] LABS: Alanine Aminotransferase 28 U/L (0-41); Albumin Level 4.2 g/dL (3.5-5.2); Alkaline Phosphatase 80 IU/L (40-130); Anion Gap 19.3 (5-19); Aspartate Amino Transferase 27 U/L (0-40); Blood Urea Nitrogen 17 mg/dL (6-20); Calcium 8.8 mg/dL (8.5-10.5); Carbon Dioxide 25 mmol/L (22-29); Chloride 95 mmol/L (98-107); Globulin 2.7 g/dL (1.3-4.6); Glomerular Filtration Rate 52.4 mL/min (90-130); Glucose 343 mg/dL (65-115); Osmolality Calculated 290 mOsm/kg (285-295); Potassium 4.3 mmol/L (3.5-5.1); Sodium 135 mmol/L (136-145); Total Bilirubin 0.2 mg/dL (0.15-1.2); Total Protein 6.9 g/dL (6.6-8.7)
== END 2019-07-29 16:38 | disposition home or self-care (01) ==
LOC: LAB 16:38
PROVIDERS: PCP Nurse Practitioner; Visit Provider Emergency Medicine
DX: A49.02 Methicillin resistant Staphylococcus aureus infection, unspecified site (principal)
CPT/HCPCS: 80053; 85025

== ENCOUNTER 2019-08-03 08:21 | Outpatient (CLI) | payer BC, SELFPAY | END 2019-08-03 08:22 | disposition home or self-care (01) | LOC: WOUND 08:22 | PROVIDERS: PCP Nurse Practitioner; Visit Provider Nurse Practitioner Family | DX: E11.621 Type 2 diabetes mellitus with foot ulcer (principal); L97.522 Non-pressure chronic ulcer of other part of left foot with fat layer exposed | CPT/HCPCS: 11042; 97605 ==

== ENCOUNTER 2019-08-07 08:13 | Outpatient (CLI) | payer BC, SELFPAY | END 2019-08-07 08:14 | disposition home or self-care (01) | LOC: WOUND 08:14 | PROVIDERS: PCP Nurse Practitioner; Visit Provider Nurse Practitioner Family | DX: E11.621 Type 2 diabetes mellitus with foot ulcer (principal); L97.522 Non-pressure chronic ulcer of other part of left foot with fat layer exposed | CPT/HCPCS: 11042 ==

== ENCOUNTER 2019-08-14 08:28 | Outpatient (CLI) | payer BC, SELFPAY | END 2019-08-14 08:29 | disposition home or self-care (01) | LOC: WOUND 08:29 | PROVIDERS: PCP Nurse Practitioner; Visit Provider Nurse Practitioner Family | DX: E11.621 Type 2 diabetes mellitus with foot ulcer (principal); L97.522 Non-pressure chronic ulcer of other part of left foot with fat layer exposed | CPT/HCPCS: 11042 ==

== ENCOUNTER 2019-08-21 08:08 | Outpatient (CLI) | payer BC, SELFPAY ==
--- NOTE | 2019-08-21 09:40 | XR_ITS ---
WS: [id number] XR chest 2V* [id number] REASON FOR EXAM: ? BOLUS FOR HBO CLEARANCE FINDINGS: The heart was not grossly enlarged. A granuloma seen off the left hilum. A scoliotic curve convex to the right is present. The lung alves are well aerated. No masses are seen, pneumonia, pleural effusion, or pulmonary edema . No osseous abnormalities. XR/XR chest 2V* [id number] IMPRESSION: Negative chest for acute findings.
[2019-08-21 10:22] LABS: Basophils % 0.6 %; Eosinophils # 0.1 10^3/uL (0.0-0.8); Eosinophils % 1.4 %; Hematocrit 43.9 % (42.0-52.0); Hemoglobin 14.1 g/dL (11.7-16.6); Lymphocytes # 1.9 10^3/uL (0.8-4.8); Lymphocytes % 25.6 %; Mean Corpuscular HGB Conc 32.1 g/dL (30.0-36.0); Mean Corpuscular Hemoglobin 27.4 pg (28.0-34.0); Mean Corpuscular Volume 85.4 fL (80-94); Mean Platelet Volume 9.4 fL (7.4-10.4); Monocytes # 0.8 10^3/uL (0.2-0.9); Monocytes % 10.9 %; Neutrophils # 4.4 10^3/uL (1.8-7.7); Neutrophils % 60.9 %; Nucleated Red Blood Cells % 0 %; Platelet Count 363 10^3/cmm (130-400); Red Blood Count 5.14 10^6/uL (4.1-5.3); Red Cell Distribution Width 12.7 % (12.1-15.1); White Blood Count 7.2 10^3/uL (4.0-10.0)
[2019-08-21 10:35] LABS: Alanine Aminotransferase 25 U/L (0-41); Albumin Level 4.4 g/dL (3.5-5.2); Alkaline Phosphatase 99 IU/L (40-130); Anion Gap 17.2 (5-19); Aspartate Amino Transferase 21 U/L (0-40); Blood Urea Nitrogen 13 mg/dL (6-20); C Reactive Protein 50.9 mg/L (0.0-4.9); Calcium 10.4 mg/dL (8.5-10.5); Carbon Dioxide 28 mmol/L (22-29); Chloride 97 mmol/L (98-107); Globulin 3.7 g/dL (1.3-4.6); Glomerular Filtration Rate 57.1 mL/min (90-130); Glucose 173 mg/dL (65-115); Osmolality Calculated 284 mOsm/kg (285-295); Potassium 5.2 mmol/L (3.5-5.1); Sodium 137 mmol/L (136-145); Total Bilirubin 0.4 mg/dL (0.15-1.2); Total Protein 8.1 g/dL (6.6-8.7)
[2019-08-21 11:11] LABS: Estmated Average Glucose 237; Hemoglobin A1C 9.9 % (4.0-6.0)
[2019-08-21 11:12] LABS: Erythrocyte Sedimentation Rate 71 mm/hr (0-10)
--- NOTE | 2019-08-25 11:15 | ECG_ITS ---
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 Measurements Intervals [place] Rate: 93 P: 55 WV: 193 QRS: 22 QRSD: 85 T: 36 QT: 332 QTc: 414 Interpretive Statements SINUS RHYTHM No previous ECG available for comparison Electronically Signed On 08-25-2019 13:08:41 CDT by Rafa Snow M.D. [id number]
== END 2019-08-21 08:09 | disposition home or self-care (01) ==
LOC: WOUND 08:16
PROVIDERS: PCP Nurse Practitioner; Visit Provider Nurse Practitioner Family
DX: Z03.89 Encounter for observation for other suspected diseases and conditions ruled out (principal); E11.621 Type 2 diabetes mellitus with foot ulcer; L97.522 Non-pressure chronic ulcer of other part of left foot with fat layer exposed
CPT/HCPCS: 11042; 36415; 71046; 80053; 83036; 84134; 85025; 85651; 86140; 87070; 87077; 87176; 87186; 87205; 93005

== ENCOUNTER 2019-08-24 12:58 | Outpatient (CLI) | payer BC, SELFPAY | END 2019-08-24 12:59 | disposition home or self-care (01) | LOC: WOUND 13:02 | PROVIDERS: PCP Nurse Practitioner; Visit Provider Nurse Practitioner Family | DX: E11.621 Type 2 diabetes mellitus with foot ulcer (principal); L97.522 Non-pressure chronic ulcer of other part of left foot with fat layer exposed | CPT/HCPCS: 11042; L4387 ==

== ENCOUNTER 2019-08-28 08:33 | Outpatient (CLI) | payer BC, SELFPAY | END 2019-08-28 08:34 | disposition home or self-care (01) | LOC: WOUND 08:34 | PROVIDERS: PCP Nurse Practitioner; Visit Provider Nurse Practitioner Family | DX: E11.621 Type 2 diabetes mellitus with foot ulcer (principal); L97.522 Non-pressure chronic ulcer of other part of left foot with fat layer exposed | CPT/HCPCS: 11042 ==

== ENCOUNTER 2019-08-29 08:00 | Outpatient (CLI) | payer BC, SELFPAY | END 2019-08-29 08:01 | disposition home or self-care (01) | LOC: WOUND 08:01 | PROVIDERS: PCP Nurse Practitioner; Visit Provider Thoracic Surgery (Cardiothoracic Vascular Surgery) | DX: E11.621 Type 2 diabetes mellitus with foot ulcer (principal); L97.528 Non-pressure chronic ulcer of other part of left foot with other specified severity | CPT/HCPCS: G0277 ==

== ENCOUNTER 2019-08-31 08:13 | Outpatient (CLI) | payer BC, SELFPAY | END 2019-08-31 08:14 | disposition home or self-care (01) | LOC: WOUND 08:13 | PROVIDERS: PCP Nurse Practitioner; Visit Provider Nurse Practitioner Family | DX: E11.621 Type 2 diabetes mellitus with foot ulcer (principal); L97.528 Non-pressure chronic ulcer of other part of left foot with other specified severity | CPT/HCPCS: G0277 ==

== ENCOUNTER 2019-09-01 07:51 | Outpatient (CLI) | payer BC, SELFPAY | END 2019-09-01 07:52 | disposition home or self-care (01) | LOC: WOUND 07:51 | PROVIDERS: PCP Nurse Practitioner; Visit Provider Surgery | DX: E11.621 Type 2 diabetes mellitus with foot ulcer (principal); L97.528 Non-pressure chronic ulcer of other part of left foot with other specified severity | CPT/HCPCS: G0277 ==

== ENCOUNTER 2019-09-04 07:46 | Outpatient (CLI) | payer BC, SELFPAY | END 2019-09-04 07:47 | disposition home or self-care (01) | LOC: WOUND 07:47 | PROVIDERS: PCP Nurse Practitioner; Visit Provider Nurse Practitioner Family | DX: E11.621 Type 2 diabetes mellitus with foot ulcer (principal); L97.522 Non-pressure chronic ulcer of other part of left foot with fat layer exposed | CPT/HCPCS: 11042 ==

== ENCOUNTER 2019-09-05 08:03 | Outpatient (CLI) | payer BC, SELFPAY | END 2019-09-05 08:04 | disposition home or self-care (01) | LOC: WOUND 08:04 | PROVIDERS: PCP Nurse Practitioner; Visit Provider Thoracic Surgery (Cardiothoracic Vascular Surgery) | DX: E11.621 Type 2 diabetes mellitus with foot ulcer (principal); L97.528 Non-pressure chronic ulcer of other part of left foot with other specified severity | CPT/HCPCS: G0277 ==

== ENCOUNTER 2019-09-06 07:50 | Outpatient (CLI) | payer BC, SELFPAY | END 2019-09-06 07:51 | disposition home or self-care (01) | LOC: WOUND 07:51 | PROVIDERS: PCP Nurse Practitioner; Visit Provider Thoracic Surgery (Cardiothoracic Vascular Surgery) | DX: E11.621 Type 2 diabetes mellitus with foot ulcer (principal); L97.528 Non-pressure chronic ulcer of other part of left foot with other specified severity | CPT/HCPCS: G0277 ==

== ENCOUNTER 2019-09-07 07:47 | Outpatient (CLI) | payer BC, SELFPAY | END 2019-09-07 07:48 | disposition home or self-care (01) | LOC: WOUND 07:48 | PROVIDERS: PCP Nurse Practitioner; Visit Provider Nurse Practitioner Family | DX: E11.621 Type 2 diabetes mellitus with foot ulcer (principal); L97.528 Non-pressure chronic ulcer of other part of left foot with other specified severity | CPT/HCPCS: G0277 ==

== ENCOUNTER 2019-09-12 12:50 | Outpatient (CLI) | payer BC, SELFPAY | END 2019-09-12 12:51 | disposition home or self-care (01) | LOC: WOUND 12:51 | PROVIDERS: PCP Nurse Practitioner; Visit Provider Surgery | DX: E11.621 Type 2 diabetes mellitus with foot ulcer (principal); L97.528 Non-pressure chronic ulcer of other part of left foot with other specified severity | CPT/HCPCS: G0277 ==

== ENCOUNTER 2019-09-13 07:44 | Outpatient (CLI) | payer BC, SELFPAY | END 2019-09-13 07:45 | disposition home or self-care (01) | LOC: WOUND 07:45 | PROVIDERS: PCP Nurse Practitioner; Visit Provider Thoracic Surgery (Cardiothoracic Vascular Surgery) | DX: E11.621 Type 2 diabetes mellitus with foot ulcer (principal); L97.528 Non-pressure chronic ulcer of other part of left foot with other specified severity | CPT/HCPCS: G0277 ==

== ENCOUNTER 2019-09-14 13:17 | Outpatient (CLI) | payer BC, SELFPAY | END 2019-09-14 13:18 | disposition home or self-care (01) | LOC: WOUND 13:18 | PROVIDERS: PCP Nurse Practitioner; Visit Provider Surgery | DX: E11.621 Type 2 diabetes mellitus with foot ulcer (principal); L97.528 Non-pressure chronic ulcer of other part of left foot with other specified severity | CPT/HCPCS: G0277 ==

== ENCOUNTER 2019-09-15 07:51 | Outpatient (CLI) | payer BC, SELFPAY | END 2019-09-15 07:52 | disposition home or self-care (01) | LOC: WOUND 07:51 | PROVIDERS: PCP Nurse Practitioner; Visit Provider Surgery | DX: E11.621 Type 2 diabetes mellitus with foot ulcer (principal); L97.528 Non-pressure chronic ulcer of other part of left foot with other specified severity | CPT/HCPCS: G0277 ==

== ENCOUNTER 2019-09-19 07:45 | Outpatient (CLI) | payer BC, SELFPAY | END 2019-09-19 07:46 | disposition home or self-care (01) | LOC: WOUND 07:46 | PROVIDERS: PCP Nurse Practitioner; Visit Provider Thoracic Surgery (Cardiothoracic Vascular Surgery) | DX: E11.621 Type 2 diabetes mellitus with foot ulcer (principal); L97.528 Non-pressure chronic ulcer of other part of left foot with other specified severity | CPT/HCPCS: G0277 ==

== ENCOUNTER 2019-09-20 08:02 | Outpatient (CLI) | payer BC, SELFPAY | END 2019-09-20 08:03 | disposition home or self-care (01) | LOC: WOUND 08:02 | PROVIDERS: PCP Nurse Practitioner; Visit Provider Thoracic Surgery (Cardiothoracic Vascular Surgery) | DX: E11.621 Type 2 diabetes mellitus with foot ulcer (principal); L97.528 Non-pressure chronic ulcer of other part of left foot with other specified severity | CPT/HCPCS: G0277 ==

== ENCOUNTER 2019-09-25 07:48 | Outpatient (CLI) | payer BC, SELFPAY | END 2019-09-25 07:49 | disposition home or self-care (01) | LOC: WOUND 07:49 | PROVIDERS: PCP Nurse Practitioner; Visit Provider Emergency Medicine | DX: E11.621 Type 2 diabetes mellitus with foot ulcer (principal); L97.522 Non-pressure chronic ulcer of other part of left foot with fat layer exposed | CPT/HCPCS: 11042; G0277; L3260 ==

== ENCOUNTER 2019-09-26 07:47 | Outpatient (CLI) | payer BC, SELFPAY | END 2019-09-26 07:48 | disposition home or self-care (01) | LOC: WOUND 07:47 | PROVIDERS: PCP Nurse Practitioner; Visit Provider Thoracic Surgery (Cardiothoracic Vascular Surgery) | DX: E11.621 Type 2 diabetes mellitus with foot ulcer (principal); L97.528 Non-pressure chronic ulcer of other part of left foot with other specified severity | CPT/HCPCS: G0277 ==

== ENCOUNTER 2019-09-27 07:40 | Outpatient (CLI) | payer BC, SELFPAY | END 2019-09-27 07:41 | disposition home or self-care (01) | LOC: WOUND 07:40 | PROVIDERS: PCP Nurse Practitioner; Visit Provider Emergency Medicine | DX: E11.621 Type 2 diabetes mellitus with foot ulcer (principal); L97.528 Non-pressure chronic ulcer of other part of left foot with other specified severity | CPT/HCPCS: G0277 ==

== ENCOUNTER 2019-09-29 07:45 | Outpatient (CLI) | payer BC, SELFPAY | END 2019-09-29 07:46 | disposition home or self-care (01) | LOC: WOUND 07:46 | PROVIDERS: PCP Nurse Practitioner; Visit Provider Surgery | DX: E11.621 Type 2 diabetes mellitus with foot ulcer (principal); L97.528 Non-pressure chronic ulcer of other part of left foot with other specified severity | CPT/HCPCS: G0277 ==

== ENCOUNTER 2019-10-02 07:51 | Outpatient (CLI) | payer BC, SELFPAY | END 2019-10-02 07:52 | disposition home or self-care (01) | LOC: WOUND 07:51 | PROVIDERS: PCP Nurse Practitioner; Visit Provider Emergency Medicine | DX: E11.621 Type 2 diabetes mellitus with foot ulcer (principal); L97.522 Non-pressure chronic ulcer of other part of left foot with fat layer exposed | CPT/HCPCS: 11042; G0277 ==

== ENCOUNTER 2019-10-03 07:42 | Outpatient (CLI) | payer BC, SELFPAY | END 2019-10-03 07:43 | disposition home or self-care (01) | LOC: WOUND 07:42 | PROVIDERS: PCP Nurse Practitioner; Visit Provider Thoracic Surgery (Cardiothoracic Vascular Surgery) | DX: E11.621 Type 2 diabetes mellitus with foot ulcer (principal); L97.528 Non-pressure chronic ulcer of other part of left foot with other specified severity | CPT/HCPCS: G0277 ==

== ENCOUNTER 2019-10-04 07:39 | Outpatient (CLI) | payer BC, SELFPAY | END 2019-10-04 07:40 | disposition home or self-care (01) | LOC: WOUND 07:40 | PROVIDERS: PCP Nurse Practitioner; Visit Provider Emergency Medicine | DX: E11.621 Type 2 diabetes mellitus with foot ulcer (principal); L97.528 Non-pressure chronic ulcer of other part of left foot with other specified severity | CPT/HCPCS: G0277 ==

== ENCOUNTER 2019-10-05 07:56 | Outpatient (CLI) | payer BC, SELFPAY | END 2019-10-05 07:57 | disposition home or self-care (01) | LOC: WOUND 07:57 | PROVIDERS: PCP Nurse Practitioner; Visit Provider Emergency Medicine | DX: E11.621 Type 2 diabetes mellitus with foot ulcer (principal); L97.528 Non-pressure chronic ulcer of other part of left foot with other specified severity | CPT/HCPCS: G0277 ==

== ENCOUNTER 2019-10-06 07:46 | Outpatient (CLI) | payer BC, SELFPAY | END 2019-10-06 07:47 | disposition home or self-care (01) | LOC: WOUND 07:47 | PROVIDERS: PCP Nurse Practitioner; Visit Provider Surgery | DX: E11.621 Type 2 diabetes mellitus with foot ulcer (principal); L97.528 Non-pressure chronic ulcer of other part of left foot with other specified severity | CPT/HCPCS: G0277 ==

== ENCOUNTER 2019-10-09 07:53 | Outpatient (CLI) | payer BC, SELFPAY | END 2019-10-09 07:54 | disposition home or self-care (01) | LOC: WOUND 07:54 | PROVIDERS: PCP Nurse Practitioner; Visit Provider Nurse Practitioner Family | DX: E11.621 Type 2 diabetes mellitus with foot ulcer (principal); L97.528 Non-pressure chronic ulcer of other part of left foot with other specified severity | CPT/HCPCS: 11042; G0277 ==

== ENCOUNTER 2019-10-10 07:49 | Outpatient (CLI) | payer BC, SELFPAY | END 2019-10-10 07:50 | disposition home or self-care (01) | LOC: WOUND 07:49 | PROVIDERS: PCP Nurse Practitioner; Visit Provider Thoracic Surgery (Cardiothoracic Vascular Surgery) | DX: E11.621 Type 2 diabetes mellitus with foot ulcer (principal); L97.528 Non-pressure chronic ulcer of other part of left foot with other specified severity | CPT/HCPCS: 99183; G0277 ==

== ENCOUNTER 2019-10-16 10:00 | Outpatient (CLI) | payer BC, SELFPAY | END 2019-10-16 10:01 | disposition home or self-care (01) | LOC: WOUND 10:00 | PROVIDERS: PCP Nurse Practitioner; Visit Provider Emergency Medicine | DX: E11.621 Type 2 diabetes mellitus with foot ulcer (principal); L97.522 Non-pressure chronic ulcer of other part of left foot with fat layer exposed | CPT/HCPCS: 11042; 87070; 87077; 87176; 87186; 87205; L3260 ==

== ENCOUNTER 2019-10-17 07:51 | Outpatient (CLI) | payer BC, SELFPAY | END 2019-10-17 07:52 | disposition home or self-care (01) | LOC: WOUND 07:51 | PROVIDERS: PCP Nurse Practitioner; Visit Provider Emergency Medicine | DX: E11.621 Type 2 diabetes mellitus with foot ulcer (principal); L97.526 Non-pressure chronic ulcer of other part of left foot with bone involvement without evidence of necrosis | CPT/HCPCS: 99183; G0277 ==

== ENCOUNTER 2019-10-18 07:52 | Outpatient (CLI) | payer BC, SELFPAY | END 2019-10-18 07:53 | disposition home or self-care (01) | LOC: WOUND 07:52 | PROVIDERS: PCP Nurse Practitioner; Visit Provider Thoracic Surgery (Cardiothoracic Vascular Surgery) | DX: L98.498 Non-pressure chronic ulcer of skin of other sites with other specified severity; E11.622 Type 2 diabetes mellitus with other skin ulcer | CPT/HCPCS: G0277 ==

== ENCOUNTER 2019-10-23 10:47 | Outpatient (CLI) | payer BC, SELFPAY ==
--- NOTE | 2019-10-23 | XR_ITS ---
WS: [id number] FOOT LEFT TECHNIQUE: 3 views of the left foot CLINICAL INFORMATION: PAIN, REDNESS, NON HEALING ULCER COMPARISON: June 19, 2019 FINDINGS: New destructive changes involving the base of the fifth metatarsal consistent with osteomyelitis. Thi s has developed since the prior examinations. Associated soft tissue edema. XR/XR foot LT min 3V* [id number] IMPRESSION: New changes of osteomyelitis base of the fifth metatarsal
== END 2019-10-23 10:48 | disposition home or self-care (01) ==
LOC: WOUND 10:48 → RADWPI 11:35
PROVIDERS: PCP Nurse Practitioner; Visit Provider Emergency Medicine
DX: M79.672 Pain in left foot (principal); L53.9 Erythematous condition, unspecified; L97.529 Non-pressure chronic ulcer of other part of left foot with unspecified severity; M86.8X7 Other osteomyelitis, ankle and foot
CPT/HCPCS: 11042; 73630

== ENCOUNTER 2019-10-30 10:53 | Outpatient (CLI) | payer BC, SELFPAY | END 2019-10-30 10:54 | disposition home or self-care (01) | LOC: WOUND 10:54 | PROVIDERS: PCP Nurse Practitioner; Visit Provider Emergency Medicine | DX: E11.621 Type 2 diabetes mellitus with foot ulcer (principal); L97.522 Non-pressure chronic ulcer of other part of left foot with fat layer exposed | CPT/HCPCS: 97597 ==

== ENCOUNTER 2019-11-06 10:29 | Outpatient (CLI) | payer BC, SELFPAY | END 2019-11-06 10:30 | disposition home or self-care (01) | LOC: WOUND 10:29 | PROVIDERS: PCP Nurse Practitioner; Visit Provider Emergency Medicine | DX: E11.621 Type 2 diabetes mellitus with foot ulcer (principal); L97.522 Non-pressure chronic ulcer of other part of left foot with fat layer exposed | CPT/HCPCS: 11042 ==

== ENCOUNTER → 2019-11-08 08:57 | Outpatient (BNVA) | payer BC, SELFPAY | PROVIDERS: PCP Nurse Practitioner; Visit Provider Registered Nurse | DX: E11.628 Type 2 diabetes mellitus with other skin complications (principal); L08.9 Local infection of the skin and subcutaneous tissue, unspecified; E11.65 Type 2 diabetes mellitus with hyperglycemia; I10 Essential (primary) hypertension; E78.5 Hyperlipidemia, unspecified | CPT/HCPCS: 80061; 83036; 83721; 87635 ==

== ENCOUNTER → 2019-11-10 10:24 | Day surgery (SDC) | payer BC, SELFPAY ==
--- NOTE | 2019-11-10 10:42 | XR_ITS ---
WS: [id number] Portable AP upright chest, 11/10/2019 Clinical Data: picc placement Comparison: PA and Lateral chest, 08/21/2019. Findings: The right PICC line ends at the junction of the right subclavian vein and right internal j ugular vein. It needs to be advanced 5 cm into the superior vena cava. No nodules, masses or effusion s are seen. The heart is normal. The pulmonary vascularity is not increased. No pneumonia or pneumoth orax is seen. XR/XR chest 1V portable [id number] Impression: Right PICC line ending at the junction of the right subclavian vein and right i nternal jugular vein.
--- NOTE | 2019-11-10 11:28 | XR_ITS ---
WS: [id number] Portable AP upright chest, 11/10/2019, 1125 hours Clinical Data: picc placement Comparison: Portable chest, 11/10/2019, 1118 hours. Findings: Right PICC line has been advanced so the tip ends in the superior vena cava. No pneumothora x is seen. XR/XR chest 1V portable [id number] Impression: Satisfactory placement of right PICC line.
[2019-11-10 12:18] LABS: Anion Gap 11.9 (5-19); Blood Urea Nitrogen 19 mg/dL (6-20); Calcium 9.4 mg/dL (8.5-10.5); Carbon Dioxide 28 mmol/L (22-29); Chloride 102 mmol/L (98-107); Glomerular Filtration Rate 44.9 mL/min (90-130); Glucose 170 mg/dL (65-115); Osmolality Calculated 284 mOsm/kg (285-295); Potassium 4.9 mmol/L (3.5-5.1); Sodium 137 mmol/L (136-145)
[2019-11-10 12:44] VITALS: BP 119/72; PULSE 72; RESP 18; TEMP 36.5; O2SAT 99
[2019-11-10 13:43] VITALS: BMI 35.4
== END ==
PROVIDERS: PCP Registered Nurse; Visit Provider Emergency Medicine
DX: M86.8X7 Other osteomyelitis, ankle and foot (principal)
CPT/HCPCS: 36569; 36592; 71045; 80048; 96365; 96366; J3370; J7040

== ENCOUNTER 2019-11-13 13:36 | Outpatient (CLI) | payer BC, SELFPAY ==
[2019-11-13 13:49] LABS: Basophils % 0.8 %; Eosinophils # 0.1 10^3/uL (0.0-0.8); Eosinophils % 1.4 %; Hematocrit 39.3 % (42.0-52.0); Hemoglobin 12.6 g/dL (11.7-16.6); Lymphocytes # 1.5 10^3/uL (0.8-4.8); Lymphocytes % 29.7 %; Mean Corpuscular HGB Conc 32.1 g/dL (30.0-36.0); Mean Corpuscular Hemoglobin 27.1 pg (28.0-34.0); Mean Corpuscular Volume 84.5 fL (80-94); Monocytes # 0.4 10^3/uL (0.2-0.9); Neutrophils # 2.88 10^3/uL (1.8-7.7); Neutrophils % 59.1 %; Nucleated Red Blood Cells % 0 %; Platelet Count 208 10^3/cmm (130-400); Red Blood Count 4.65 10^6/uL (4.1-5.3); Red Cell Distribution Width 13.7 % (12.1-15.1); White Blood Count 4.9 10^3/uL (4.0-10.0)
[2019-11-13 14:20] LABS: Anion Gap 14.8 (5-19); Blood Urea Nitrogen 24 mg/dL (6-20); Calcium 9.4 mg/dL (8.5-10.5); Carbon Dioxide 27 mmol/L (22-29); Chloride 96 mmol/L (98-107); Glomerular Filtration Rate 48.4 mL/min (90-130); Glucose 278 mg/dL (65-115); Osmolality Calculated 283 mOsm/kg (285-295); Potassium 4.8 mmol/L (3.5-5.1); Sodium 133 mmol/L (136-145)
[2019-11-13 14:21] LABS: Vancomycin Trough 9.2 ug/mL (10-15)
== END 2019-11-13 13:37 | disposition home or self-care (01) ==
LOC: LAB 13:42
PROVIDERS: PCP Registered Nurse; Visit Provider Family Medicine
DX: E11.9 Type 2 diabetes mellitus without complications (principal)
CPT/HCPCS: 80048; 80202; 85025

== ENCOUNTER 2019-11-14 07:51 | Outpatient (CLI) | payer BC, SELFPAY | END 2019-11-14 07:52 | disposition home or self-care (01) | LOC: WOUND 07:52 | PROVIDERS: PCP Registered Nurse; Visit Provider Thoracic Surgery (Cardiothoracic Vascular Surgery) | DX: E11.621 Type 2 diabetes mellitus with foot ulcer (principal); L97.522 Non-pressure chronic ulcer of other part of left foot with fat layer exposed; M65.072 Abscess of tendon sheath, left ankle and foot | CPT/HCPCS: G0277 ==

== ENCOUNTER 2019-11-15 07:48 | Outpatient (CLI) | payer BC, SELFPAY | END 2019-11-15 07:49 | disposition home or self-care (01) | LOC: WOUND 07:48 | PROVIDERS: PCP Registered Nurse; Visit Provider Emergency Medicine | DX: E11.621 Type 2 diabetes mellitus with foot ulcer (principal); L97.522 Non-pressure chronic ulcer of other part of left foot with fat layer exposed; M86.171 Other acute osteomyelitis, right ankle and foot | CPT/HCPCS: 11042; 99183; G0277 ==

== ENCOUNTER 2019-11-16 07:45 | Outpatient (CLI) | payer BC, SELFPAY | END 2019-11-16 07:46 | disposition home or self-care (01) | LOC: WOUND 07:45 | PROVIDERS: PCP Registered Nurse; Visit Provider Emergency Medicine | DX: E11.621 Type 2 diabetes mellitus with foot ulcer (principal); L97.522 Non-pressure chronic ulcer of other part of left foot with fat layer exposed; M86.171 Other acute osteomyelitis, right ankle and foot | CPT/HCPCS: G0277 ==

== ENCOUNTER 2019-11-17 07:55 | Outpatient (CLI) | payer BC, SELFPAY | END 2019-11-17 07:56 | disposition home or self-care (01) | LOC: WOUND 07:55 | PROVIDERS: PCP Registered Nurse; Visit Provider Surgery | DX: E11.621 Type 2 diabetes mellitus with foot ulcer (principal); L97.522 Non-pressure chronic ulcer of other part of left foot with fat layer exposed; M86.171 Other acute osteomyelitis, right ankle and foot | CPT/HCPCS: G0277 ==

== ENCOUNTER 2019-11-18 18:06 | Outpatient (CLI) | payer BC, SELFPAY ==
[2019-11-18 20:32] LABS: Anion Gap 17.3 (5-19); Blood Urea Nitrogen 33 mg/dL (6-20); Calcium 8.8 mg/dL (8.5-10.5); Carbon Dioxide 23 mmol/L (22-29); Chloride 100 mmol/L (98-107); Glomerular Filtration Rate 41.9 mL/min (90-130); Glucose 184 mg/dL (65-115); Osmolality Calculated 284 mOsm/kg (285-295); Potassium 4.3 mmol/L (3.5-5.1); Sodium 136 mmol/L (136-145)
[2019-11-18 20:33] LABS: Vancomycin Trough 19.1 ug/mL (10-15)
== END 2019-11-18 18:07 | disposition home or self-care (01) ==
LOC: LAB 18:12
PROVIDERS: PCP Registered Nurse; Visit Provider Family Medicine
DX: E11.9 Type 2 diabetes mellitus without complications (principal)
CPT/HCPCS: 80048; 80202

== ENCOUNTER 2019-11-20 08:05 | Outpatient (CLI) | payer BC, SELFPAY | END 2019-11-20 08:06 | disposition home or self-care (01) | LOC: WOUND 08:05 | PROVIDERS: PCP Registered Nurse; Visit Provider Emergency Medicine | DX: E11.621 Type 2 diabetes mellitus with foot ulcer (principal); L97.522 Non-pressure chronic ulcer of other part of left foot with fat layer exposed; L03.031 Cellulitis of right toe | CPT/HCPCS: G0277 ==

== ENCOUNTER 2019-11-20 17:19 | Outpatient (CLI) | payer BC, SELFPAY ==
[2019-11-20 18:15] LABS: Basophils % 0.5 %; Eosinophils # 0.1 10^3/uL (0.0-0.8); Hematocrit 40.3 % (42.0-52.0); Hemoglobin 12.8 g/dL (11.7-16.6); Lymphocytes # 1.4 10^3/uL (0.8-4.8); Lymphocytes % 23.1 %; Mean Corpuscular HGB Conc 31.8 g/dL (30.0-36.0); Mean Corpuscular Hemoglobin 27.2 pg (28.0-34.0); Mean Corpuscular Volume 85.6 fL (80-94); Mean Platelet Volume 10.8 fL (7.4-10.4); Monocytes # 0.6 10^3/uL (0.2-0.9); Monocytes % 9.5 %; Neutrophils % 65.4 %; Nucleated Red Blood Cells % 0 %; Platelet Count 206 10^3/cmm (130-400); Red Blood Count 4.71 10^6/uL (4.1-5.3); Red Cell Distribution Width 13.5 % (12.1-15.1)
[2019-11-20 19:40] LABS: Alanine Aminotransferase 25 U/L (0-41); Albumin Level 4.3 g/dL (3.5-5.2); Alkaline Phosphatase 65 IU/L (40-130); Anion Gap 18.6 (5-19); Aspartate Amino Transferase 25 U/L (0-40); Blood Urea Nitrogen 23 mg/dL (6-20); Calcium 9.6 mg/dL (8.5-10.5); Carbon Dioxide 23 mmol/L (22-29); Chloride 98 mmol/L (98-107); Globulin 2.9 g/dL (1.3-4.6); Glomerular Filtration Rate 44.9 mL/min (90-130); Glucose 287 mg/dL (65-115); Osmolality Calculated 287 mOsm/kg (285-295); Potassium 4.6 mmol/L (3.5-5.1); Sodium 135 mmol/L (136-145); Total Bilirubin 0.3 mg/dL (0.15-1.2); Total Protein 7.2 g/dL (6.6-8.7)
[2019-11-20 19:41] LABS: Vancomycin Trough 18.9 ug/mL (10-15)
== END 2019-11-20 17:20 | disposition home or self-care (01) ==
LOC: LAB 17:21
PROVIDERS: Nurse Practitioner; PCP Registered Nurse; Visit Provider Emergency Medicine
DX: E11.65 Type 2 diabetes mellitus with hyperglycemia (principal); E78.2 Mixed hyperlipidemia; I10 Essential (primary) hypertension; M86.10 Other acute osteomyelitis, unspecified site
CPT/HCPCS: 80053; 80202; 85025

== ENCOUNTER 2019-11-21 08:17 | Outpatient (CLI) | payer BC, SELFPAY | END 2019-11-21 08:18 | disposition home or self-care (01) | LOC: WOUND 08:17 | PROVIDERS: PCP Registered Nurse; Visit Provider Thoracic Surgery (Cardiothoracic Vascular Surgery) | DX: E11.621 Type 2 diabetes mellitus with foot ulcer (principal); L97.522 Non-pressure chronic ulcer of other part of left foot with fat layer exposed; M86.171 Other acute osteomyelitis, right ankle and foot | CPT/HCPCS: G0277 ==

== ENCOUNTER 2019-11-22 07:46 | Outpatient (CLI) | payer BC, SELFPAY | END 2019-11-22 07:47 | disposition home or self-care (01) | LOC: WOUND 07:47 | PROVIDERS: PCP Registered Nurse; Visit Provider Emergency Medicine | DX: E11.621 Type 2 diabetes mellitus with foot ulcer (principal); L97.512 Non-pressure chronic ulcer of other part of right foot with fat layer exposed | CPT/HCPCS: G0277 ==

== ENCOUNTER 2019-11-23 08:35 | Outpatient (CLI) | payer BC, SELFPAY | END 2019-11-23 08:36 | disposition home or self-care (01) | LOC: WOUND 08:36 | PROVIDERS: PCP Registered Nurse; Visit Provider Emergency Medicine | DX: E11.621 Type 2 diabetes mellitus with foot ulcer (principal); L97.522 Non-pressure chronic ulcer of other part of left foot with fat layer exposed | CPT/HCPCS: 11042 ==

== ENCOUNTER 2019-11-27 18:51 | Outpatient (CLI) | payer BC, SELFPAY ==
[2019-11-27 20:00] LABS: Basophils # 0.1 10^3/uL (0.0-0.1); Basophils % 0.7 %; Eosinophils # 0.1 10^3/uL (0.0-0.8); Eosinophils % 0.7 %; Hematocrit 41.4 % (42.0-52.0); Hemoglobin 13.7 g/dL (11.7-16.6); Lymphocytes # 1.3 10^3/uL (0.8-4.8); Lymphocytes % 18.8 %; Mean Corpuscular HGB Conc 33.1 g/dL (30.0-36.0); Mean Corpuscular Hemoglobin 28.1 pg (28.0-34.0); Mean Corpuscular Volume 84.8 fL (80-94); Mean Platelet Volume 11.4 fL (7.4-10.4); Monocytes # 0.5 10^3/uL (0.2-0.9); Monocytes % 6.5 %; Neutrophils # 5.18 10^3/uL (1.8-7.7); Neutrophils % 72.6 %; Nucleated Red Blood Cells % 0 %; Platelet Count 271 10^3/cmm (130-400); Red Blood Count 4.88 10^6/uL (4.1-5.3); Red Cell Distribution Width 13.6 % (12.1-15.1); White Blood Count 7.1 10^3/uL (4.0-10.0)
[2019-11-27 20:25] LABS: Alanine Aminotransferase 23 U/L (0-41); Albumin Level 4.4 g/dL (3.5-5.2); Alkaline Phosphatase 74 IU/L (40-130); Aspartate Amino Transferase 20 U/L (0-40); Blood Urea Nitrogen 27 mg/dL (6-20); Calcium 9.9 mg/dL (8.5-10.5); Carbon Dioxide 23 mmol/L (22-29); Chloride 96 mmol/L (98-107); Glomerular Filtration Rate 48.4 mL/min (90-130); Glucose 295 mg/dL (65-115); Osmolality Calculated 294 mOsm/kg (285-295); Sodium 134 mmol/L (136-145); Total Bilirubin 0.3 mg/dL (0.15-1.2); Total Protein 7.4 g/dL (6.6-8.7)
[2019-11-27 20:35] LABS: Vancomycin Trough 23.7 ug/mL (10-15)
== END 2019-11-27 18:52 | disposition home or self-care (01) ==
LOC: LAB 18:54
PROVIDERS: PCP Registered Nurse; Visit Provider Family Medicine
DX: E11.9 Type 2 diabetes mellitus without complications (principal)
CPT/HCPCS: 80053; 80202; 85025

== ENCOUNTER 2019-11-28 08:01 | Outpatient (CLI) | payer BC, SELFPAY | END 2019-11-28 08:02 | disposition home or self-care (01) | LOC: WOUND 08:02 | PROVIDERS: PCP Registered Nurse; Visit Provider Thoracic Surgery (Cardiothoracic Vascular Surgery) | DX: E11.621 Type 2 diabetes mellitus with foot ulcer (principal); L97.526 Non-pressure chronic ulcer of other part of left foot with bone involvement without evidence of necrosis | CPT/HCPCS: 99183; G0277 ==

== ENCOUNTER 2019-11-29 07:57 | Outpatient (CLI) | payer BC, SELFPAY | END 2019-11-29 07:58 | disposition home or self-care (01) | LOC: WOUND 07:58 | PROVIDERS: PCP Registered Nurse; Visit Provider Nurse Practitioner Family | DX: E11.621 Type 2 diabetes mellitus with foot ulcer (principal); L97.526 Non-pressure chronic ulcer of other part of left foot with bone involvement without evidence of necrosis | CPT/HCPCS: G0277 ==

== ENCOUNTER 2019-11-30 07:46 | Outpatient (CLI) | payer BC, SELFPAY | END 2019-11-30 07:47 | disposition home or self-care (01) | LOC: WOUND 07:46 | PROVIDERS: PCP Registered Nurse; Visit Provider Nurse Practitioner Family | DX: E11.621 Type 2 diabetes mellitus with foot ulcer (principal); L97.522 Non-pressure chronic ulcer of other part of left foot with fat layer exposed | CPT/HCPCS: G0277; G0463 ==

== ENCOUNTER 2019-11-30 16:00 | Outpatient (CLI) | payer BC, SELFPAY | END 2019-11-30 16:01 | disposition home or self-care (01) | LOC: LAB 16:05 | PROVIDERS: PCP Registered Nurse; Visit Provider Emergency Medicine | DX: E11.9 Type 2 diabetes mellitus without complications (principal) | CPT/HCPCS: 80202 ==

== ENCOUNTER 2019-12-01 08:04 | Outpatient (CLI) | payer BC, SELFPAY | END 2019-12-01 08:05 | disposition home or self-care (01) | LOC: WOUND 08:05 | PROVIDERS: PCP Registered Nurse; Visit Provider Surgery | DX: E11.621 Type 2 diabetes mellitus with foot ulcer (principal); L97.526 Non-pressure chronic ulcer of other part of left foot with bone involvement without evidence of necrosis | CPT/HCPCS: G0277 ==

== ENCOUNTER 2019-12-04 18:40 | Outpatient (CLI) | payer BC, SELFPAY ==
[2019-12-04 19:15] LABS: Basophils % 0.3 %; Eosinophils % 1.4 %; Hematocrit 37.3 % (42.0-52.0); Hemoglobin 12.1 g/dL (11.7-16.6); Lymphocytes # 1.1 10^3/uL (0.8-4.8); Lymphocytes % 37.6 %; Mean Corpuscular HGB Conc 32.4 g/dL (30.0-36.0); Mean Corpuscular Hemoglobin 27.3 pg (28.0-34.0); Mean Platelet Volume 11.2 fL (7.4-10.4); Monocytes # 0.3 10^3/uL (0.2-0.9); Monocytes % 11.8 %; Neutrophils # 1.39 10^3/uL (1.8-7.7); Neutrophils % 48.6 %; Nucleated Red Blood Cells % 0 %; Platelet Count 165 10^3/cmm (130-400); Red Blood Count 4.44 10^6/uL (4.1-5.3); Red Cell Distribution Width 13.9 % (12.1-15.1); White Blood Count 2.9 10^3/uL (4.0-10.0)
[2019-12-04 19:30] LABS: Alanine Aminotransferase 34 U/L (0-41); Alkaline Phosphatase 70 IU/L (40-130); Anion Gap 17.8 (5-19); Aspartate Amino Transferase 29 U/L (0-40); Blood Urea Nitrogen 33 mg/dL (6-20); Calcium 9.2 mg/dL (8.5-10.5); Carbon Dioxide 22 mmol/L (22-29); Chloride 95 mmol/L (98-107); Globulin 2.6 g/dL (1.3-4.6); Glomerular Filtration Rate 39.2 mL/min (90-130); Glucose 469 mg/dL (65-115); Osmolality Calculated 298 mOsm/kg (285-295); Potassium 4.8 mmol/L (3.5-5.1); Sodium 130 mmol/L (136-145); Total Bilirubin 0.2 mg/dL (0.15-1.2); Total Protein 6.6 g/dL (6.6-8.7)
[2019-12-04 19:48] LABS: Vancomycin Trough 25.4 ug/mL (10-15)
== END 2019-12-04 18:41 | disposition home or self-care (01) ==
LOC: LAB 18:42
PROVIDERS: Visit Provider Family Medicine
DX: E11.9 Type 2 diabetes mellitus without complications (principal)
CPT/HCPCS: 80053; 80202; 85025

== ENCOUNTER 2019-12-11 09:58 | Outpatient (CLI) | payer BC, SELFPAY ==
[2019-12-11 12:11] LABS: Basophils % 0.2 %; Eosinophils # 0.1 10^3/uL (0.0-0.8); Eosinophils % 1.3 %; Hematocrit 42.4 % (42.0-52.0); Hemoglobin 13.5 g/dL (11.7-16.6); Lymphocytes # 1.4 10^3/uL (0.8-4.8); Lymphocytes % 29.8 %; Mean Corpuscular HGB Conc 31.8 g/dL (30.0-36.0); Mean Corpuscular Hemoglobin 27.4 pg (28.0-34.0); Mean Platelet Volume 11.1 fL (7.4-10.4); Monocytes # 0.5 10^3/uL (0.2-0.9); Monocytes % 9.9 %; Neutrophils # 2.59 10^3/uL (1.8-7.7); Neutrophils % 57.3 %; Nucleated Red Blood Cells % 0 %; Platelet Count 240 10^3/cmm (130-400); Red Blood Count 4.93 10^6/uL (4.1-5.3); White Blood Count 4.5 10^3/uL (4.0-10.0)
[2019-12-11 12:44] LABS: Vancomycin Trough < 4.0 ug/mL (10-15)
[2019-12-11 12:45] LABS: Alanine Aminotransferase 31 U/L (0-41); Albumin Level 4.3 g/dL (3.5-5.2); Alkaline Phosphatase 87 IU/L (40-130); Anion Gap 17.4 (5-19); Aspartate Amino Transferase 26 U/L (0-40); Blood Urea Nitrogen 32 mg/dL (6-20); Calcium 9.4 mg/dL (8.5-10.5); Carbon Dioxide 25 mmol/L (22-29); Chloride 99 mmol/L (98-107); Globulin 3.1 g/dL (1.3-4.6); Glomerular Filtration Rate 44.9 mL/min (90-130); Glucose 245 mg/dL (65-115); Osmolality Calculated 297 mOsm/kg (285-295); Potassium 5.4 mmol/L (3.5-5.1); Sodium 136 mmol/L (136-145); Total Bilirubin 0.2 mg/dL (0.15-1.2); Total Protein 7.4 g/dL (6.6-8.7)
== END 2019-12-11 09:59 | disposition home or self-care (01) ==
LOC: LAB 10:00
PROVIDERS: Visit Provider Emergency Medicine
DX: E11.9 Type 2 diabetes mellitus without complications (principal)
CPT/HCPCS: 80053; 80202; 85025

== ENCOUNTER 2019-12-11 14:06 | Outpatient (CLI) | payer BC, SELFPAY | END 2019-12-11 14:07 | disposition home or self-care (01) | LOC: WOUND 14:06 | PROVIDERS: Visit Provider Nurse Practitioner Family | DX: Z09 Encounter for follow-up examination after completed treatment for conditions other than malignant neoplasm (principal) | CPT/HCPCS: 99212 ==

== ENCOUNTER 2020-01-04 14:34 | Outpatient (CLI) | payer BC, SELFPAY ==
--- NOTE | 2020-01-04 14:41 | XRR_ITS ---
PROCEDURE INFORMATION: Exam: XR Right Foot Complete Exam date and time: 01/04/2020 2:56 PM Age: 54 years old Clinical indication: Pain; Foot; Right; Prior surgery; Surgery type: RT fourth toe amputation; Additional info: Foot pain TECHNIQUE: Imaging protocol: XR Right foot. Views: 3 or more views. COMPARISON: CR Foot 3 views, RIGHT* [id number] 10/25/2017 8:11 AM FINDINGS: Bones/joints: There is amputation of the 4th toe at the level of the proximal shaft of the 4th metatarsal. There is a chronic fracture in the proximal shaft of the 5th metatarsal. Of circumscribed bony erosion is seen in the proximal lateral aspect of the proximal phalange of the 2nd toe new since prior examination. No additional bony abnormalities are present. Soft tissues: Normal. XR/XR foot RT min 3V* [id number] IMPRESSION: 1. Amputation of the 4th toe at the level of the proximal shaft of the 4th metatarsal 2. Chronic transverse fracture proximal shaft of the 5th metatarsal 3. Chronic bony erosion proximal lateral aspect of the proximal phalange of the 2nd toe 4. Otherwise negative for acute bony abnormality
[2020-01-04 15:28] LABS: Alanine Aminotransferase 26 U/L (0-41); Albumin Level 4.3 g/dL (3.5-5.2); Alkaline Phosphatase 84 IU/L (40-130); Anion Gap 15.2 (5-19); Aspartate Amino Transferase 22 U/L (0-40); Blood Urea Nitrogen 30 mg/dL (6-20); Calcium 9.4 mg/dL (8.5-10.5); Carbon Dioxide 27 mmol/L (22-29); Chloride 101 mmol/L (98-107); Globulin 2.9 g/dL (1.3-4.6); Glomerular Filtration Rate 52.4 mL/min (90-130); Glucose 195 mg/dL (65-115); Osmolality Calculated 298 mOsm/kg (285-295); Potassium 5.2 mmol/L (3.5-5.1); Sodium 138 mmol/L (136-145); Total Bilirubin 0.3 mg/dL (0.15-1.2); Total Protein 7.2 g/dL (6.6-8.7)
[2020-01-04 15:32] LABS: Estmated Average Glucose 232; Hemoglobin A1C 9.7 % (4.0-6.0)
== END 2020-01-04 14:35 | disposition home or self-care (01) ==
LOC: RAD 14:37
PROVIDERS: PCP Registered Nurse; Visit Provider Nurse Practitioner Family
DX: N28.9 Disorder of kidney and ureter, unspecified (principal); E11.65 Type 2 diabetes mellitus with hyperglycemia; Z89.421 Acquired absence of other right toe(s); S92.351A Displaced fracture of fifth metatarsal bone, right foot, initial encounter for closed fracture; X58.XXXA Exposure to other specified factors, initial encounter; M85.871 Other specified disorders of bone density and structure, right ankle and foot
CPT/HCPCS: 36415; 73630; 80053; 83036

== ENCOUNTER → 2020-01-08 11:07 | Outpatient (BNVA) | payer BC, SELFPAY | PROVIDERS: PCP Registered Nurse; Visit Provider Nurse Practitioner Family | DX: L03.031 Cellulitis of right toe (principal); L03.039 Cellulitis of unspecified toe; S90.411D Abrasion, right great toe, subsequent encounter; N18.9 Chronic kidney disease, unspecified | CPT/HCPCS: 87070 ==

== ENCOUNTER → 2020-02-12 13:57 | Outpatient (BNVA) | payer BC, SELFPAY | PROVIDERS: PCP Registered Nurse; Visit Provider Nurse Practitioner Family | DX: L03.90 Cellulitis, unspecified (principal) | CPT/HCPCS: 87070; 87077; 87184 ==

== ENCOUNTER 2020-02-14 14:24 | Outpatient (CLI) | payer BC, SELFPAY | END 2020-02-14 14:25 | disposition home or self-care (01) | LOC: WOUND 14:25 | PROVIDERS: PCP Registered Nurse; Visit Provider Thoracic Surgery (Cardiothoracic Vascular Surgery) | DX: E11.621 Type 2 diabetes mellitus with foot ulcer (principal); L97.422 Non-pressure chronic ulcer of left heel and midfoot with fat layer exposed | CPT/HCPCS: 11042; G0463; L3260 ==

== ENCOUNTER 2020-02-21 15:01 | Outpatient (CLI) | payer BC, SELFPAY | END 2020-02-21 15:02 | disposition home or self-care (01) | LOC: WOUND 15:02 | PROVIDERS: PCP Registered Nurse; Visit Provider Thoracic Surgery (Cardiothoracic Vascular Surgery) | DX: E11.621 Type 2 diabetes mellitus with foot ulcer (principal); L97.422 Non-pressure chronic ulcer of left heel and midfoot with fat layer exposed | CPT/HCPCS: 97597 ==

== ENCOUNTER → 2020-03-04 09:05 | Outpatient (BNVA) | payer BC, SELFPAY | PROVIDERS: PCP Registered Nurse; Visit Provider Podiatrist Foot & Ankle Surgery | DX: M25.872 Other specified joint disorders, left ankle and foot (principal); M79.89 Other specified soft tissue disorders; M79.672 Pain in left foot | CPT/HCPCS: 73630 ==

== ENCOUNTER 2020-03-06 13:11 | Outpatient (CLI) | payer BC, SELFPAY | END 2020-03-06 13:12 | disposition home or self-care (01) | LOC: WOUND 13:12 | PROVIDERS: PCP Registered Nurse; Visit Provider Nurse Practitioner Family | DX: E11.621 Type 2 diabetes mellitus with foot ulcer (principal); L97.422 Non-pressure chronic ulcer of left heel and midfoot with fat layer exposed | CPT/HCPCS: G0463 ==

== ENCOUNTER 2020-03-13 09:55 | Outpatient (CLI) | payer BC, SELFPAY | END 2020-03-13 09:56 | disposition home or self-care (01) | PROVIDERS: PCP Registered Nurse; Visit Provider Thoracic Surgery (Cardiothoracic Vascular Surgery) | DX: E11.621 Type 2 diabetes mellitus with foot ulcer (principal); L97.422 Non-pressure chronic ulcer of left heel and midfoot with fat layer exposed | CPT/HCPCS: G0463 ==

== ENCOUNTER 2020-04-17 09:00 | Outpatient (CLI) | payer OTHER, SELFPAY | END 2020-04-17 09:01 | disposition home or self-care (01) | LOC: WOUND 09:01 | PROVIDERS: PCP Registered Nurse; Visit Provider Thoracic Surgery (Cardiothoracic Vascular Surgery) | DX: E11.621 Type 2 diabetes mellitus with foot ulcer (principal); L97.422 Non-pressure chronic ulcer of left heel and midfoot with fat layer exposed | CPT/HCPCS: G0463 ==

== ENCOUNTER 2020-04-23 09:50 | Outpatient (CLI) | payer OTHER, SELFPAY | END 2020-04-23 09:51 | disposition home or self-care (01) | LOC: WOUND 09:50 | PROVIDERS: PCP Registered Nurse; Visit Provider Thoracic Surgery (Cardiothoracic Vascular Surgery) | DX: E11.621 Type 2 diabetes mellitus with foot ulcer (principal); L97.528 Non-pressure chronic ulcer of other part of left foot with other specified severity | CPT/HCPCS: 11042 ==

== ENCOUNTER 2020-05-01 10:01 | Outpatient (CLI) | payer OTHER, SELFPAY | END 2020-05-01 10:02 | disposition home or self-care (01) | LOC: WOUND 10:02 | PROVIDERS: PCP Registered Nurse; Visit Provider Thoracic Surgery (Cardiothoracic Vascular Surgery) | DX: Z09 Encounter for follow-up examination after completed treatment for conditions other than malignant neoplasm (principal) | CPT/HCPCS: 99212 ==

== ENCOUNTER 2020-05-01 10:15 | Outpatient (CLI) | payer OTHER, SELFPAY | END 2020-05-01 10:16 | disposition home or self-care (01) | LOC: WOUND 10:16 | PROVIDERS: PCP Registered Nurse; Visit Provider Thoracic Surgery (Cardiothoracic Vascular Surgery) | DX: Z09 Encounter for follow-up examination after completed treatment for conditions other than malignant neoplasm (principal) | CPT/HCPCS: 99212 ==

== ENCOUNTER → 2020-05-21 10:21 | Outpatient (BNVA) | payer OTHER, SELFPAY | PROVIDERS: PCP Registered Nurse; Visit Provider Nurse Practitioner Family | DX: E11.69 Type 2 diabetes mellitus with other specified complication (principal); E78.5 Hyperlipidemia, unspecified; I10 Essential (primary) hypertension; E11.65 Type 2 diabetes mellitus with hyperglycemia; E11.42 Type 2 diabetes mellitus with diabetic polyneuropathy | CPT/HCPCS: 80053; 80061; 83036; 83721 ==

== ENCOUNTER → 2020-08-21 08:52 | Outpatient (BNVA) | payer OTHER, SELFPAY | PROVIDERS: PCP Registered Nurse; Visit Provider Nurse Practitioner Family | DX: E11.42 Type 2 diabetes mellitus with diabetic polyneuropathy (principal); I10 Essential (primary) hypertension; E11.69 Type 2 diabetes mellitus with other specified complication; E78.5 Hyperlipidemia, unspecified | CPT/HCPCS: 80053; 80061; 83036 ==

== ENCOUNTER 2020-09-21 11:04 | Observation (INO) | payer OTHER, SELFPAY ==
[2020-09-21] VITALS (11 sets, daily range): BP systolic 111–147; BP diastolic 74–94; PULSE 83–134; RESP 13–20; TEMP 36.4–36.9; O2SAT 96–99; BMI 37.0
--- NOTE | 2020-09-21 12:18 | XRR_ITS ---
PROCEDURE INFORMATION: Exam: XR Chest Exam date and time: 09/21/2020 12:18 PM Age: 55 years old Clinical indication: Shortness of breath and other: Dizziness; Patient HX: C/O dizziness for 1 week. Also gets short of breath and dizzy with exertion; Additional info: Reduced breath sounds TECHNIQUE: Imaging protocol: XR of the chest. Views: 1 view. COMPARISON: CR XR chest 1V portable [id number] 11/10/2019 11:24 AM FINDINGS: Lungs: Unremarkable. No consolidation. Pleural spaces: Unremarkable. No pleural effusion. No pneumothorax. Heart/Mediastinum: The heart is not enlarged. There are calcified mediastinal lymph nodes which are benign. Bones/joints: Unremarkable. XR/XR chest 1V portable [id number] IMPRESSION: No significant cardiopulmonary abnormality.
--- NOTE | 2020-09-21 12:20 | ECG_ITS ---
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 Measurements Intervals [place] Rate: 132 P: AR: QRS: 43 QRSD: 89 T: 74 QT: 283 QTc: 420 Interpretive Statements Sinus tachycardia with a first-degree AV block ABNORMAL RHYTHM ECG Compared to ECG 08/25/2019 11:43:00 Sinus rhythm no longer present Electronically Signed On 09-21-2020 19:31:54 CDT by Leslie Hair M.D. [id number]
--- NOTE | 2020-09-21 12:34 | CTR_ITS ---
PROCEDURE INFORMATION: Exam: CT Head Without Contrast Exam date and time: 09/21/2020 12:34 PM Age: 55 years old Clinical indication: Dizziness; Additional info: Dizziness, wait for d dimer. May need cta chest. TECHNIQUE: Imaging protocol: Computed tomography of the head without contrast. Axial, coronal and sagittal reformatted images were created and reviewed. Radiation optimization: All CT scans at this facility use at least one of these dose optimization techniques: automated exposure control; mA and/or kV adjustment per patient size (includes targeted exams where dose is matched to clinical indication); or iterative reconstruction. COMPARISON: No relevant prior studies available. RADIATION DOSE METRICS: Total DLP (mGy-cm): 933.4 FINDINGS: Brain: No CT evidence of acute intracranial hemorrhage or acute territorial infarction. No significant mass effect or midline shift. Basal cisterns patent. Cerebral ventricles: Normal in size and configuration. Paranasal sinuses: Minimal ethmoid mucosal thickening. Mastoid air cells: Grossly unremarkable. Bones/joints: No acute osseous abnormality. Soft tissues: Grossly unremarkable. CT/CT head wo con* [id number]: 1[address] No CT evidence of acute intracranial pathology. 2. Additional findings, as above. Radiation Dose CTDIVOL = (mGy): DLP = 933.4 (mGy-cm)
--- NOTE | 2020-09-21 12:46 | W.ED.DIZZY ---
HPI - Dizziness General: Chief Complaint: Dizziness Stated Complaint: SOB, Dizzy Time Seen by Provider: 09/21/20 12:07 History of Present Illness: HPI Narrative: The patient is a 55-year-old male with past medical history diabetes who comes to the ER complaining of about a week of dizziness episodes associated with shortness of breath. He says he had an episode getting out of the car to the ER which resolved after he got in the bed and relax. Upon me seeing him he offers no complaints. He was also seen by his primary care physician yesterday who had a normal EKG at that time and referred him to cardiology but it has been 1 day and he has not heard back. He was told to come to the ER with any more episodes. He has had this off and on for a week. Denies chest pain with it but with exertion he does get short of breath and dizzy at the same time. Moving his head left and right does not make him dizzy. The dizziness is associated with exertion. He says also sometimes bending over makes him feel that way. MD elicited complaint: dizziness Onset (ago): week(s) (1) Timing: gradual onset and episodic Severity: moderate History of similar symptoms: No Exacerbating factors: exertion Relieving factors: rest Associated symptoms: Reports short of breath; Denies chest pain, cough, headache(s), nausea or nasal congestion Associated neuro symptoms: Deny confusion or numbness in extremities Review of Systems General: Reports: 10 or more systems reviewed and unremarkable except in HPI and below Const: Denies: fatigue Eyes: Denies: change in vision, blurry vision or eye redness ENMT: Denies: throat pain, swelling of lips/tongue, ear or mastoid pain or nasal congestion Card: Denies: chest pain Resp: Denies: dyspnea, productive cough or non-productive cough GI: Denies: nausea : Denies: flank pain, urinary frequency or urinary urgency Musc: Denies: neck pain, back pain, extremity pain, joint pain, joint redness, limited range of motion or muscle weakness Skin/Breast: Denies: rash, pruritus, erythema, skin pain or skin tenderness Neuro: Denies: headache(s), numbness in extremities, weakness in extremities, sensory changes, difficulty walking, dizziness, confusion or Slurred speech present Psych: Denies: anxiety or depression Endo: Denies: polyuria All/Imm: Denies: urticaria, throat swelling or tongue swelling PFSH ED PFSH: Medical History (Updated 09/21/20 @ 23:37 by Ochoa Calles MD) Acquired rearfoot varus Cavus foot, acquired Chronic renal impairment 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 Chronic ulcer of left foot with fat layer exposed Diabetes type 2, uncontrolled Diabetic peripheral neuropathy associated with type 2 diabetes mellitus Essential hypertension Foot abscess, left Hyperlipidemia associated with type 2 diabetes mellitus Hyperlipidemia, mixed Non-pressure chronic ulcer 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 Obesity Statin intolerance Surgical History (Updated 09/21/20 @ 16:05 by Gentry Contreras MD) Amputated toe of right foot secondary to osteomyelitis 4th right toe History of amputation of lesser toe History of partial amputation of toe of right foot Family History Father Diabetes Mother Diabetes Other Hypertension Social History Smoking and tobacco status: never smoked Second hand smoke exposure: No Smoking risk assessment/counseling performed?: No Alcohol intake: former Desire information about alcohol rehabilitation?: No Counseling given: No Desire information about substance/drug rehabilitation?: No Counseling given: No Adopted: No Caregiver/support person: No Lives independently: Yes Household members: spouse Housing: House Marital status: service: No Current occupational status: employed Pets and animals: Yes History of recent travel: No Current gender identity: Male Physical Exam Const: COMMON NORMALS: no acute distress, average body habitus, patient oriented x3, no limitations, healthy appearing, alert and well nourished GENERAL APPEARANCE: cooperative, comfortable, well kempt and well developed ORIENTATION/CONSCIOUSNESS: Yes awake, Yes oriented to person, Yes oriented to place and Yes oriented to time HENMT: COMMON NORMALS: normocephalic, external ears normal and Normal external nose present HEAD & SCALP: normal to inspection and normocephalic NOSE: Normal external nose present EXTERNAL EAR: Yes external ears normal MOUTH: Normal oral and palatal mucosa present THROAT: posterior oropharynx normal Eye: COMMON NORMALS: Equal, round and reactive pupils present and EOMs intact bilaterally GENERAL EYE: appearance normal, both eyes and all related structures PUPIL: Yes Equal, round and reactive pupils present Neck/C-Spine: COMMON NORMALS: full ROM, no lymphadenopathy, no meningeal signs and no JVD GENERAL: Yes normal visual inspection Lymph: LYMPHATIC: no lymphadenopathy noted Chest: COMMONS NORMALS: normal inspection of the chest and normal palpation of entire chest wall Resp: COMMON NORMALS: normal respiratory effort, No retractions, No use of accessory muscles, clear to auscultation bilaterally and percussion normal EFFORT & INSPECTION: Yes able to speak in complete sentences AUSCULTATION: clear to auscultation bilaterally PERCUSSION: percussion normal Cardio: COMMON NORMALS: no JVD, regular rate, regular rhythm, S1 normal heart sound present, S2 normal heart sound present and Peripheral pulses 2+ throughout RATE: regular rate RHYTHM: regular rhythm HEART SOUNDS: S1 normal heart sound present and S2 normal heart sound present PERIPHERAL PULSES: Peripheral pulses 2+ throughout GI: COMMON NORMALS: Normal to inspection, nondistended, normoactive bowel sounds present, Soft to palpation, non-tender and no masses INSPECTION: Yes normal to inspection PALPATION: Yes Soft to palpation : COMMON NORMALS: Yes no CVA tenderness BLADDER/KIDNEY EXAM: Yes no CVA tenderness Back/Pelvis: COMMON NORMALS: no CVA tenderness, thoracic and lumbar spine normal to inspection, no thoracic nor lumbar tenderness and thoraco-lumbar ROM normal Extremity: COMMON NORMALS: normal to inspection, full ROM, capillary refill normal, no joint enlargement and no pedal edema GENERAL: Yes normal exam except as noted Neuro: COMMON NORMALS: patient oriented x3, CN's II-XII intact bilaterally, moves all extremities, no focal motor deficits, no sensory deficits noted and gait normal SENSORIUM/ORIENTATION: Yes alert, Yes oriented to person, Yes oriented to place and Yes oriented to time MENINGEAL SIGNS: Yes no meningeal signs Psych: COMMON NORMALS: mental status grossly normal, Normal thought process present, cooperative, normal affect and speech normal APPEARANCE: Yes well kempt ATTITUDE: Yes calm SPEECH: Yes normal speech THOUGHT PROCESS: Normal thought process present Skin: COMMON NORMALS: no rashes or lesions noted GENERAL SKIN EXAM: no rashes or lesions noted Course Vital Signs: Vital signs: Vital Signs Temperature 98.3 F 09/21/20 20:00 Pulse Rate 99 09/21/20 20:00 Respiratory Rate 18 09/21/20 20:00 Blood Pressure 126/85 09/21/20 20:00 Pulse Oximetry 97 09/21/20 20:00 MDM - Dizziness MDM Narrative: Medical decision making narrative: The patient comes to the ER complaining of dizzy spells and shortness of breath with any exertion at all. He is also tachycardic to the 120s at rest. Sinus tachycardia. Prior to a week he has not had any symptoms however now with minimal exertion he gets very short of breath and dizzy. The symptoms are concerning enough and I discussed with Dr. aHir recommended keeping him observation. Discussed with Dr. Chris who accepts for observation. Troponins normal x2. Initial EKG read supraventricular tachycardia that was more than likely a sinus tachycardia with first-degree block. Second EKG showed again tachycardia but no block. No ST changes. Lab Data: Labs: Lab Results 09/21/20 09/21/20 09/21/20 Range/Units 12:40 12:40 12:40 WBC 5.8 (4.0-10.0) 10^3/ uL RBC 6.03 H (4.1-5.3) 10^6/u L Hgb 16.5 (11.7-16.6) g/dL Hct 50.1 (42.0-52.0) % MCV 83.1 (80-94) fL MCH 27.4 L (28.0-34.0) pg MCHC 32.9 (30.0-36.0) g/dL RDW 12.7 (12.1-15.1) % Plt Count 225 (130-400) 10^3/c mm MPV 10.2 (7.4-10.4) fL Neut % (Auto) 61.7 % Lymph % (Auto) 28.0 % Whitman % (Auto) 8.4 % Eos % (Auto) 0.9 % Baso % (Auto) 0.5 % Neut # (Auto) 3.60 (1.8-7.7) 10^3/u L Lymph # (Auto) 1.6 (0.8-4.8) 10^3/u L Whitman # (Auto) 0.5 (0.2-0.9) 10^3/u L Eos # (Auto) 0.1 (0.0-0.8) 10^3/u L Baso # (Auto) 0.0 (0.0-0.1) 10^3/u L Nucleated RBC % (a uto) 0 % Nucleated RBCs # 0.0 /100WBC Fibrinogen (174-498) mg/dL D-Dimer (0-0.59) ug/mIFE U Sodium 137 (136-145) mmol/L Potassium 5.5 H (3.5-5.1) mmol/L Chloride 99 (98-107) mmol/L Carbon Dioxide 28 (22-29) mmol/L Anion Gap 15.5 (5-19) BUN 23 H (6-20) mg/dL Creatinine 1.3 H (0.7-1.2) mg/dL GFR Calculation 56.9 L (90-130) mL/min Glucose 148 H (65-115) mg/dL Calculated Osmolal ity 290 (285-295) mOsm/k g Lactate 1.3 (0.5-2.2) mmol/L Calcium 9.6 (8.5-10.5) mg/dL Total Bilirubin 0.4 (0.15-1.2) mg/dL AST 22 (0-40) U/L ALT 20 (0-41) U/L Alkaline Phosphata se 72 (40-130) IU/L Troponin T Baselin e (0-15) ng/L Troponin T 120 Min [place] (0-15) ng/L Delta Troponin T (0-10) ABS# NT-Pro-B Natriuret Pep 1831 H (0-125) pg/mL Total Protein 6.7 (6.6-8.7) g/dL Albumin 4.4 (3.5-5.2) g/dL Globulin 2.3 (1.3-4.6) g/dL TSH 2.75 (0.27-4.20) uIU/ mL Urine Color (Yellow) Urine Appearance (CLEAR) Urine pH (5-7) Ur Specific Gravit y (1.005-1.030) Urine Protein (Negative) Urine Glucose (UA) (Normal) Urine Ketones (Negative) Urine Blood (Negative) Urine Nitrate (Negative) Urine Bilirubin (Negative) Urine Urobilinogen (Negative) mg/dL Ur Leukocyte Aileen ase (Negative) 09/21/20 09/21/20 09/21/20 Range/Units 12:40 12:40 12:40 WBC (4.0-10.0) 10^3/ uL RBC (4.1-5.3) 10^6/u L Hgb (11.7-16.6) g/dL Hct (42.0-52.0) % MCV (80-94) fL MCH (28.0-34.0) pg MCHC (30.0-36.0) g/dL RDW (12.1-15.1) % Plt Count (130-400) 10^3/c mm MPV (7.4-10.4) fL Neut % (Auto) % Lymph % (Auto) % Whitman % (Auto) % Eos % (Auto) % Baso % (Auto) % Neut # (Auto) (1.8-7.7) 10^3/u L Lymph # (Auto) (0.8-4.8) 10^3/u L Whitman # (Auto) (0.2-0.9) 10^3/u L Eos # (Auto) (0.0-0.8) 10^3/u L Baso # (Auto) (0.0-0.1) 10^3/u L Nucleated RBC % (a uto) % Nucleated RBCs # /100WBC Fibrinogen 372 (174-498) mg/dL D-Dimer 0.52 (0-0.59) ug/mIFE U Sodium (136-145) mmol/L Potassium (3.5-5.1) mmol/L Chloride (98-107) mmol/L Carbon Dioxide (22-29) mmol/L Anion Gap (5-19) BUN (6-20) mg/dL Creatinine (0.7-1.2) mg/dL GFR Calculation (90-130) mL/min Glucose (65-115) mg/dL Calculated Osmolal ity (285-295) mOsm/k g Lactate (0.5-2.2) mmol/L Calcium (8.5-10.5) mg/dL Total Bilirubin (0.15-1.2) mg/dL AST (0-40) U/L ALT (0-41) U/L Alkaline Phosphata se (40-130) IU/L Troponin T Baselin e 23 H (0-15) ng/L Troponin T 120 Min [place] (0-15) ng/L Delta Troponin T (0-10) ABS# NT-Pro-B Natriuret Pep (0-125) pg/mL Total Protein (6.6-8.7) g/dL Albumin (3.5-5.2) g/dL Globulin (1.3-4.6) g/dL TSH (0.27-4.20) uIU/ mL Urine Color (Yellow) Urine Appearance (CLEAR) Urine pH (5-7) Ur Specific Gravit y (1.005-1.030) Urine Protein (Negative) Urine Glucose (UA) (Normal) Urine Ketones (Negative) Urine Blood (Negative) Urine Nitrate (Negative) Urine Bilirubin (Negative) Urine Urobilinogen (Negative) mg/dL Ur Leukocyte Aileen ase (Negative) 09/21/20 09/21/20 Range/Units 13:00 15:09 WBC (4.0-10.0) 10^3/ uL RBC (4.1-5.3) 10^6/u L Hgb (11.7-16.6) g/dL Hct (42.0-52.0) % MCV (80-94) fL MCH (28.0-34.0) pg MCHC (30.0-36.0) g/dL RDW (12.1-15.1) % Plt Count (130-400) 10^3/c mm MPV (7.4-10.4) fL Neut % (Auto) % Lymph % (Auto) % Whitman % (Auto) % Eos % (Auto) % Baso % (Auto) % Neut # (Auto) (1.8-7.7) 10^3/u L Lymph # (Auto) (0.8-4.8) 10^3/u L Whitman # (Auto) (0.2-0.9) 10^3/u L Eos # (Auto) (0.0-0.8) 10^3/u L Baso # (Auto) (0.0-0.1) 10^3/u L Nucleated RBC % (a uto) % Nucleated RBCs # /100WBC Fibrinogen (174-498) mg/dL D-Dimer (0-0.59) ug/mIFE U Sodium (136-145) mmol/L Potassium (3.5-5.1) mmol/L Chloride (98-107) mmol/L Carbon Dioxide (22-29) mmol/L Anion Gap (5-19) BUN (6-20) mg/dL Creatinine (0.7-1.2) mg/dL GFR Calculation (90-130) mL/min Glucose (65-115) mg/dL Calculated Osmolal ity (285-295) mOsm/k g Lactate (0.5-2.2) mmol/L Calcium (8.5-10.5) mg/dL Total Bilirubin (0.15-1.2) mg/dL AST (0-40) U/L ALT (0-41) U/L Alkaline Phosphata se (40-130) IU/L Troponin T Baselin e (0-15) ng/L Troponin T 120 Min [place] 21.38 H (0-15) ng/L Delta Troponin T -1.62 L (0-10) ABS# NT-Pro-B Natriuret Pep (0-125) pg/mL Total Protein (6.6-8.7) g/dL Albumin (3.5-5.2) g/dL Globulin (1.3-4.6) g/dL TSH (0.27-4.20) uIU/ mL Urine Color Colorless (Yellow) Urine Appearance Clear (CLEAR) Urine pH 6.5 (5-7) Ur Specific Gravit y 1.005 (1.005-1.030) Urine Protein Neg (Negative) Urine Glucose (UA) 4+ H (Normal) Urine Ketones Negative (Negative) Urine Blood Neg (Negative) Urine Nitrate Negative (Negative) Urine Bilirubin Neg (Negative) Urine Urobilinogen Norm (Negative) mg/dL Ur Leukocyte Aileen ase Negative (Negative) Discharge Plan Discharge Patient Disposition: Admitted As Inpatient Admit Provider: Gentry Contreras Clinical Impression: Exertional dyspnea, Dizziness Condition: Stable Coding Level of Care Code ED [employer] Attendant for [employer] Fwd Exam Comprehensive
[2020-09-21 12:58] LABS: Basophils % 0.5 %; Eosinophils # 0.1 10^3/uL (0.0-0.8); Eosinophils % 0.9 %; Hematocrit 50.1 % (42.0-52.0); Hemoglobin 16.5 g/dL (11.7-16.6); Lymphocytes # 1.6 10^3/uL (0.8-4.8); Mean Corpuscular HGB Conc 32.9 g/dL (30.0-36.0); Mean Corpuscular Hemoglobin 27.4 pg (28.0-34.0); Mean Corpuscular Volume 83.1 fL (80-94); Mean Platelet Volume 10.2 fL (7.4-10.4); Monocytes # 0.5 10^3/uL (0.2-0.9); Monocytes % 8.4 %; Neutrophils % 61.7 %; Nucleated Red Blood Cells % 0 %; Platelet Count 225 10^3/cmm (130-400); Red Blood Count 6.03 10^6/uL (4.1-5.3); Red Cell Distribution Width 12.7 % (12.1-15.1); White Blood Count 5.8 10^3/uL (4.0-10.0)
[2020-09-21 13:06] LABS: D Dimer 0.52 ug/mIFEU (0-0.59)
[2020-09-21 13:08] LABS: Add Urine Microscopic? NO; Charge for UA Resulting for Rev
[2020-09-21 13:16] LABS: Bilirubin Urine Neg (Negative); Blood Urine Neg (Negative); Glucose Urine UA 4+ (Normal); Ketones Urine Negative (Negative); Leukocyte Esterase Urine Negative (Negative); Nitrate Urine Negative (Negative); Protein Urine Neg (Negative); Specific Gravity, Urine 1.005 (1.005-1.030); Urine Appearance Clear (CLEAR); Urine Color Colorless (Yellow); Urobilinogen Urine Norm (Negative); pH Urine 6.5 (5-7)
[2020-09-21 13:19] LABS: Lactate (Lactic Acid level) 1.3 mmol/L (0.5-2.2); Troponin(5th) Baseline 23 ng/L (0-15)
[2020-09-21 13:27] LABS: Alanine Aminotransferase 20 U/L (0-41); Albumin Level 4.4 g/dL (3.5-5.2); Alkaline Phosphatase 72 IU/L (40-130); Blood Urea Nitrogen 23 mg/dL (6-20); Calcium 9.6 mg/dL (8.5-10.5); Carbon Dioxide 28 mmol/L (22-29); Chloride 99 mmol/L (98-107); Globulin 2.3 g/dL (1.3-4.6); Glomerular Filtration Rate 56.9 mL/min (90-130); Glucose 148 mg/dL (65-115); NT Pro B Type Natriuretic Pept 1831 pg/mL (0-125); Osmolality Calculated 290 mOsm/kg (285-295); Sodium 137 mmol/L (136-145); Thyroid Stimulating Hormone 2.75 uIU/mL (0.27-4.20); Total Bilirubin 0.4 mg/dL (0.15-1.2); Total Protein 6.7 g/dL (6.6-8.7)
[2020-09-21 13:41] LABS: Anion Gap 15.5 (5-19); Aspartate Amino Transferase 22 U/L (0-40); Potassium 5.5 mmol/L (3.5-5.1)
--- NOTE | 2020-09-21 13:44 | CTR_ITS ---
PROCEDURE INFORMATION: Exam: CTA Chest With Contrast Exam date and time: 09/21/2020 1:44 PM Age: 55 years old Clinical indication: Dyspnea. Tachycardia/dizziness. PE? TECHNIQUE: Imaging protocol: Computed tomographic angiography of the chest with contrast. 3D rendering (Not supervised by radiologist): MIP and/or 3D reconstructed images were created by the technologist. Radiation optimization: All CT scans at this facility use at least one of these dose optimization techniques: automated exposure control; mA and/or kV adjustment per patient size (includes targeted exams where dose is matched to clinical indication); or iterative reconstruction. Contrast material: OMNIPAQUE 350; Contrast volume: 66 ml; Contrast route: INTRAVENOUS (IV); COMPARISON: CR XR chest 1V portable [id number] 09/21/2020 12:50 PM RADIATION DOSE METRICS: Total DLP (mGy-cm): 578.98 FINDINGS: Pulmonary arteries: No pulmonary embolus. Aorta: No thoracic aortic aneurysm. Lungs: There is mild peribronchial wall thickening. No pulmonary mass. Pleural spaces: No pleural effusion.; No pneumothorax. Heart: No pericardial effusion. Mediastinal space: No hiatal hernia. Lymph nodes: There are calcified mediastinal and bilateral hilar lymph nodes. Adrenal glands: A benign adrenal adenoma measures 1 cm. The liver is enlarged measuring at least 18.3 cm. The spleen is enlarged measuring 14.6 cm. A periportal lymph node measures 1.0 x 2.1 cm. Bones/joints: No acute fracture is identified. Soft tissues: There are calcified granulomata bilaterally. CT/CT angio chest PE protcl [id number] IMPRESSION: 1. No pulmonary embolus. 2. There is mild peribronchial wall thickening; query viral infection/bronchitis, chronic bronchitis and/or asthma. 3. Hepatosplenomegaly with mild periportal lymphadenopathy. COMMENTS: Consistent with the [employer]'s Incidental Findings Committee white paper (J Am Pradeep Radiol 2017): Any incidental adrenal lesion less than or equal to 1 cm is likely benign. No follow-up imaging is recommended for these lesions per consensus recommendations based on imaging criteria. Further lab evaluation could be pursued if warranted based on clinical findings. Radiation Dose CTDIVOL = (mGy): DLP = 578.98 (mGy-cm)
[2020-09-21] MEDS: iohexol 350 mg/mL 100 mL Btl IV (14:00)
[2020-09-21] MEDS: sodium polystyrene sulfonate 15 gm/60 mL Btl PO (14:11)
[2020-09-21] MEDS: sodium chloride 0.9% 1,000 ML 999 ML IV (14:14)
--- NOTE | 2020-09-21 14:20 | ECG_ITS ---
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 Measurements Intervals [place] Rate: 88 P: 103 [place]: 228 QRS: 48 QRSD: 82 T: 57 QT: 352 QTc: 427 Interpretive Statements SINUS RHYTHM WITH FIRST DEGREE AV BLOCK Compared to ECG 09/21/2020 13:06:25 First degree AV block now present Supraventricular tachycardia no longer present Electronically Signed On 09-21-2020 19:36:41 CDT by Leslie Hair M.D. [id number]
[2020-09-21 15:36] LABS: Troponin 5 2HR 21.38 ng/L (0-15)
[2020-09-21 15:58] LABS: Troponin 5 2HR Delta -1.62 ABS# (0-10)
--- NOTE | 2020-09-21 16:03 | P.HP_ITS ---
Providers/Chief Complaint Admitting Physician: Gentry Contreras MD Primary Care Provider: MARK Kilpatrick Chief Complaint: SOB, Dizzy History of Present Illness Patient, Yuri Kruger is a 55 year old male with past medical history of type 2 diabetes mellitus, uncontrolled, history of diabetic foot, anemia presented to the ER today after having difficulty with exertional shortness of breath getting worse for last 1 week, exertional dizziness getting worse for las t 1 week. Patient states he would have the symptoms occasionally on and off on exerting in the past but for 1 week has been getting worse and since yesterday he is not able to walk more than 3-4 steps without having these trouble. He does not have any problems while resting. Denies any nausea, vomiting, chest pain, PND, orthopnea. Has a strong family history of CAD with father having CVA and carotid disease, mother having PCI. Patient is a non-smoker, former social drinker. He states he checks his blood pressure at home usually running in 120s with heart rate running in the 110s as well. In the ER he was found to be tachycardic with heart rate going up to 120s. He remained hemodynamically stable, maintaining saturation on room air. Patient is not vaccinated for COVID-19. Denies any exposure to COVID-19, fever, shortness of breath, runny nose, cough. States he is very sure he got COVID-19 in November 2019 though was never tested. Review of Systems General: Reports: 10 or more systems reviewed and unremarkable except in HPI and below Const: Denies: fever(s), chills, body aches, change in appetite, change in weight, malaise, night sweats, diaphoresis, change in sleep pattern, daytime sleepiness or snoring Eyes: Denies: change in vision, blurry vision, photophobia, eye discomfort or eye discharge ENMT: Denies: throat pain, enlarged tonsils, hoarseness, mouth pain, oral sores, dry mouth, tinnitus, nasal congestion or post nasal drip Card: Denies: chest pain, palpitations, irregular heart rhythm, edema, swelling of feet/ankles, lightheadedness, syncope, pre-syncope, dyspnea on exertion, orthopnea, leg pain with exertion or acrocyanosis Resp: Denies: dyspnea, productive cough, non-productive cough, wheezing, stridor, pain on inspiration, change in phlegm color, hemoptysis or chest conge stion GI: Denies: abdominal pain, nausea, vomiting, hematemesis, coffee ground emesis, dysphagia, heartburn, diarrhea, constipation, bloating, GI cramping, change in bowel habits, pain on defecation, hematochezia or melena : Denies: flank pain, difficulty urinating, dysuria, urinary frequency, urinary urgency, urinary hesitancy, urinary dribbling, difficulty starting urination, change in urine stream, nocturia or hematuria Musc: Denies: neck pain, back pain, extremity pain, joint pain, joint swelling, joint redness, joint stiffness or limited range of motion Neuro: Denies: headache(s), numbness in extremities, weakness in extremities, sensory changes, lack of coordination, difficulty walking, frequent falls, dizziness, vertigo, confusion, Slurred speech present, difficulty communicating thoughts or seizure-like activity Psych: Denies: anxiety, depression, mood swings, panic attacks, hopelessness or irritability Endo: Denies: polyuria, polydipsia, tired all the time, cold intolerance, excessive sweating, flushing or heat intolerance David/Lymph: Denies: easy bruising or easy bleeding All/Imm: Denies: tongue swelling, facial swelling or acute wheezing Medications/Allergies Home Medications Medication Instructions Recorded Confirmed Last Taken Type aspirin 81 mg tablet,delayed 81 mg PO DAILY 06/16/19 09/21/20 09/21/20 History release multivitamin 1 tab PO DAILY 06/16/19 09/21/20 09/21/20 History flash glucose sensor #1 ea 08/21/20 09/21/20 Unknown Rx lisinopril 2.5 mg tablet 2.5 mg PO DAILY tab 09/20/20 09/21/20 09/21/20 History Humalog KwikPen Insulin See Rx Instructions .ROUTE .COMPLEX 09/21/20 09/21/20 Unknown History empagliflozin [Jardiance] 10 mg PO DAILY 09/21/20 09/21/20 09/21/20 History exenatide [Byetta] 10 mcg SUBCUT DAILY 09/21/20 09/21/20 09/21/20 History insulin detemir U-100 [Levemir 25 unit SUBCUT BID 09/21/20 09/21/20 09/21/20 History FlexTouch U-100 Insuln] rosuvastatin 10 mg PO DAILY 09/21/20 09/21/20 09/20/20 History Allergies Allergy/AdvReac Type Severity Reaction Status Date / Time No Known Allergies Allergy Verified 09/20/20 11:06 PFSH Acute PFSH: Medical History (Updated 09/21/20 @ 17:17 by Gentry Contreras MD) Acquired rearfoot varus Cavus foot, acquired Chronic renal impairment 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 Chronic ulcer of left foot with fat layer exposed Diabetes type 2, uncontrolled Diabetic peripheral neuropathy associated with type 2 diabetes mellitus Essential hypertension Foot abscess, left Hyperlipidemia associated with type 2 diabetes mellitus Hyperlipidemia, mixed Non-pressure chronic ulcer 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 Obesity Statin intolerance Surgical History (Updated 09/21/20 @ 16:05 by Gentry Contreras MD) Amputated toe of right foot secondary to osteomyelitis 4th right toe History of amputation of lesser toe History of partial amputation of toe of right foot Family History Father Diabetes Mother Diabetes Other Hypertension Social History Smoking and tobacco status: never smoked Second hand smoke exposure: No Smoking risk assessment/counseling performed?: No Alcohol intake: former Desire information about alcohol rehabilitation?: No Counseling given: No Desire information about substance/drug rehabilitation?: No Counseling given: No Adopted: No Caregiver/support person: No Lives independently: Yes Household members: spouse Housing: House Marital status: service: No Current occupational status: employed Pets and animals: Yes History of recent travel: No Current gender identity: Male Vitals/I&O/Wt Last Vital Signs Temp 97.5 F L 09/21/20 11:15 Pulse 90 09/21/20 15:05 Resp 13 09/21/20 15:05 BP 147/94 09/21/20 15:05 Pulse Ox 98 09/21/20 15:05 Weight last 48 hrs Weight 113.852 kg Physical Exam Narrative: EXAM NARRATIVE: General: No acute distress, AO x3 HEENT: PERRLA, pupils bilaterally equal and reactive Chest: Normal vesicular breath sounds, no added sounds, equal good air entry bilaterally CVS: S1-S2 regular, soft pansystolic murmur present in parasternal area on the left, tachycardia, no gallops, no rubs Abdomen: Soft, nontender, no organomegaly, bowel sounds present Neuro: No focal deficits, no facial deformity, AO x3, power 5/5 in all limbs Data : 09/21/20 12:40 09/21/20 12:40 A&P Assessment and plan (1) Exertional dyspnea: Status: Acute (2) Palpitation: Status: Acute (3) Dizziness: Status: Acute (4) Diabetes type 2, uncontrolled: Status: Chronic Qualifiers: Glycemic state: with hyperglycemia Qualified Code(s): E11.65 - Type 2 diabetes mellitus with hyperglycemia (5) Diabetic peripheral neuropathy associated with type 2 diabetes mellitus: Status: Acute (6) Essential hypertension: Status: Acute (7) Chronic renal impairment: Status: Acute (8) Statin intolerance: Status: Chronic Additional A&P Information Palpitations/dizziness/exertional dyspnea: Given the positive family history, history of uncontrolled diabetes cannot rule out unstable angina. EKG negative for any ST-T changes though consistent with tachycardia, first-degree heart block and biphasic P wave with possibility of early enlargement. Cycle troponins. TSH done in the ER within normal limits Check echocardiogram. Check lipid panel, HbA1c. Admit to telemetry. Lexiscan stress test on Wednesday. N.p.o. after midnight on Wednesday night Check Covid PCR. Isolation precaution. Start patient on aspirin 81 mg daily, continue home dose of statin. Patient has a history of statin intolerance in the past. Type 2 diabetes mellitus: Recent HbA1c done last month 8.3. History of uncontrolled diabetes mellitus. Since starting scale at high-dose protocol. Continue with home dose Lantus. Hypertension: Goal blood pressure less than 140/90 mmHg. For now hold off on lisinopril. Given tachycardia start patient on metoprolol 25 mg twice daily. CKD: Baseline creatinine seems to be ranging from 1.2-1.4 going as high as 1.8 last year. Medical reconciliation done for nephrotoxic drugs. Check urinalysis, urine lites, urine creatinine. Gentle hydration with normal saline at 75 cc/h. Monitor for fluid overload. Hyperkalemia: Hold lisinopril. Has had persistent hyperkalemia in the past as well. Given Kayexalate in the ER. Repeat BMP at 8 PM. Full code. Carb consistent cardiac diet. Lovenox for DVT prophylaxis. Famotidine for PUD prophylaxis. Attestations Medical Necessity Statement*: Admission for less than 2 midnights for work-up of exertional dyspnea and dizziness to rule out unstable angina, treatment of hyperkalemia Time Spent in Patient Care: Greater than 35 minutes (>than 50% of time spent in counselling and/or direct pt care on unit) . Coding Level of Care Code Acute Research And Development Specialist for Chg Fwd Diagnoses Exertional dyspnea R06.00 Palpitation R00.2 Dizziness R42 Diabetes type 2, uncontrolled E11.65 Glycemic state: with hyperglycemia Diabetic peripheral neuropathy associated with type 2 diabetes mellitus E11.42 Essential hypertension I10 Chronic renal impairment N18.9 Statin intolerance Z78.9
[2020-09-21 16:29] LABS: Fibrinogen 372 mg/dL (174-498)
[2020-09-21 16:34] LABS: SARS Covid-2 Antigen Negative (Negative)
--- NOTE | 2020-09-21 17:12 | PC.NURSE ---
Orders received from physician that patient may be transferred to med surg without telemetry.
[2020-09-21] MEDS: ferrous gluconate 324 mg Tablet PO (18:18)
[2020-09-21] MEDS: enoxaparin 40 mg/0.4 mL Syringe SUBCUT (18:18)
[2020-09-21] MEDS: famotidine 20 mg Tablet PO (18:19)
--- NOTE | 2020-09-21 18:20 | ECG_ITS ---
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 Measurements Intervals [place] Rate: 101 P: 103 MN: 214 QRS: 57 QRSD: 95 T: 44 QT: 343 QTc: 445 Interpretive Statements SINUS TACHYCARDIA WITH FIRST DEGREE AV BLOCK Compared to ECG 09/21/2020 15:06:26 Sinus rhythm no longer present Electronically Signed On 09-24-2020 16:52:16 CDT by Poonam Cary M.D. [id number]
[2020-09-21] MEDS: sodium chloride 0.9% 1,000 ML 75 ML IV (18:22)
[2020-09-21 18:23] LABS: Troponin 5 6HR 20.53 ng/L (0-15)
[2020-09-21 18:24] LABS: Troponin 5 6HR Delta -2.47 ng/L (0-12)
[2020-09-21 18:50] LABS: C Reactive Protein 5.4 mg/L (0.0-4.9); Iron 107 ug/dL (59-158); Magnesium 2.1 mg/dL (1.7-2.3); Percent Saturation 34.5 % (20-50); Total Iron Binding Capacity 310 mcg/dl; Unsaturated Iron Binding 203 ug/dL (112-347)
[2020-09-21 19:14] LABS: Blood Urea Nitrogen 23 mg/dL (6-20); Calcium 9.7 mg/dL (8.5-10.5); Carbon Dioxide 24 mmol/L (22-29); Chloride 99 mmol/L (98-107); Glomerular Filtration Rate 62.4 mL/min (90-130); Glucose 143 mg/dL (65-115); Osmolality Calculated 290 mOsm/kg (285-295); Sodium 137 mmol/L (136-145)
[2020-09-21 19:23] LABS: Anion Gap 19.1 (5-19); Potassium 5.1 mmol/L (3.5-5.1)
[2020-09-21 19:24] LABS: Lactate Dehydrogenase 210 U/L (135-225)
[2020-09-21] MEDS: atorvastatin 40 mg Tablet PO (21:30)
[2020-09-21 21:46] LABS: Glucose Point of Care 270 mg/dL (70-110)
[2020-09-21] MEDS: metoprolol tartrate 50 mg Tablet PO (21:54)
[2020-09-21] MEDS: insulin glargine 100 units/1 mL 50 UNIT SUBCUT (21:57)
[2020-09-22] VITALS (8 sets, daily range): BP systolic 109–140; BP diastolic 74–90; PULSE 65–86; RESP 12–17; TEMP 36.4–37; O2SAT 96–100
[2020-09-22 01:09] LABS: Influenza A by IFA Negative (Negative); Influenza B by IFA Negative (Negative)
[2020-09-22 04:48] LABS: Glucose Point of Care 114 mg/dL (70-110)
[2020-09-22 05:30] LABS: Basophils % 0.6 %; Eosinophils # 0.1 10^3/uL (0.0-0.8); Eosinophils % 1.1 %; Hematocrit 47.9 % (42.0-52.0); Hemoglobin 15.8 g/dL (11.7-16.6); Lymphocytes # 1.7 10^3/uL (0.8-4.8); Lymphocytes % 35.5 %; Mean Corpuscular Hemoglobin 27.5 pg (28.0-34.0); Mean Corpuscular Volume 83.4 fL (80-94); Mean Platelet Volume 10.7 fL (7.4-10.4); Monocytes # 0.5 10^3/uL (0.2-0.9); Neutrophils # 2.47 10^3/uL (1.8-7.7); Neutrophils % 52.4 %; Nucleated Red Blood Cells % 0 %; Platelet Count 216 10^3/cmm (130-400); Red Blood Count 5.74 10^6/uL (4.1-5.3); White Blood Count 4.7 10^3/uL (4.0-10.0)
--- NOTE | 2020-09-22 05:35 | PC.NURSE ---
Shift Summary Patient rested comfortably throughout this shift. Patient denied any discomfort or pain.
[2020-09-22 05:56] LABS: Alanine Aminotransferase 18 U/L (0-41); Albumin Level 3.6 g/dL (3.5-5.2); Alkaline Phosphatase 60 IU/L (40-130); Aspartate Amino Transferase 20 U/L (0-40); Blood Urea Nitrogen 21 mg/dL (6-20); Calcium 8.8 mg/dL (8.5-10.5); Carbon Dioxide 26 mmol/L (22-29); Chloride 103 mmol/L (98-107); Chol HDL Ratio 5.04 mg/dL (1.0-5.00); Cholesterol 126 mg/dL (0-200); Creatine Phosphokinase 110 U/L (39-308); Globulin 2.5 g/dL (1.3-4.6); Glomerular Filtration Rate 56.9 mL/min (90-130); Glucose 108 mg/dL (65-115); HDL Cholesterol 25 mg/dL (60-100); LDL Cholesterol Calculated 46 mg/dL (50-129); LDL HDL Ratio 1.84 RATIO (0.00-3.22); Osmolality Calculated 292 mOsm/kg (285-295); Sodium 139 mmol/L (136-145); Total Bilirubin 0.3 mg/dL (0.15-1.2); Total Protein 6.1 g/dL (6.6-8.7); Triglycerides 276 mg/dL (0-150); VLDL Cholestrol Calculation 55 mg/dL (0-30)
[2020-09-22 07:12] LABS: Glucose Point of Care 133 mg/dL (70-110)
--- NOTE | 2020-09-22 08:43 | ECG_ITS ---
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 Measurements Intervals [place] Rate: 84 P: 111 NM: 245 QRS: 23 QRSD: 102 T: 36 QT: 359 QTc: 425 Interpretive Statements SINUS RHYTHM WITH FIRST DEGREE AV BLOCK Compared to ECG 09/21/2020 18:27:46 Sinus tachycardia no longer present Electronically Signed On 09-24-2020 16:51:57 CDT by Poonam Cary M.D. [id number]
[2020-09-22] MEDS: famotidine 20 mg Tablet PO ×2 (09:05→17:44)
[2020-09-22] MEDS: aspirin 81 mg EC Tablet PO (09:05)
[2020-09-22] MEDS: sodium chloride 0.9% 1,000 ML 75 ML IV (09:05)
[2020-09-22] MEDS: ferrous gluconate 324 mg Tablet PO (09:05)
[2020-09-22] MEDS: metoprolol tartrate 50 mg Tablet PO ×2 (09:05→21:01)
--- NOTE | 2020-09-22 10:18 | PC.CHAP ---
Pastoral Care Encounter/Spiritual Assessment Type of Contact [] Declined retail loan originator visit [] Patient/Family/Request visit [] Outpatient visit [] Follow-up visit [] Physician referral [] Code/Alert [x] Routine visit [] Staff referral [] Actively dying [] Patient sleeping [] Family support [] [] Out of room [] Palliative care [] [] Receiving care in room [] Pre-surgical visit [] Trauma [] Long length of stay [] ICU visit [] Other: Relational/Emotional Strength [x] Patient feels connected with others/family/visitors/staff [] Distress [] Loneliness/isolation [] Abandonment Spirituality of Patient [x] Person of Jania [] Attends Sikh of their Jania [x] Believes in Prayer [] Reads Bible or Episcopalian materials [] There are Spiritual issues to be addressed Client Experience Administrator Interventions [x] Prayer [x] Active listening [x] Non-anxious presence [x] Spiritual/emotional support [] Crisis/trauma care [] Spiritual counseling [] Bereavement support [] Provided bereavement packet [] Provided Bible/devotional materials [] Provided toy/stuffed animal, coloring book to patient or family member [] Provided Communion [] Anointing/[place] [] Salvation [x] Completed spiritual assessment [] Other: Impact on Illness or Injury [] Angry [] Fearful [] Anxious [] Often cries [] Exhaustion [] Unable to work [] Unable to attend methodist [] Unable to walk/stand [] Unable to read [] Unable to drive [] Unable to eat/drink [] Unable to sleep [] Unable to be with family [] Patient intubated [] Other: Summary Client Experience Administrator prayed with Patient. Time spent with patient 10 minutes
[2020-09-22 10:59] LABS: Glucose Point of Care 264 mg/dL (70-110)
[2020-09-22 12:12] LABS: Amphetamines Screen Urine Negative (Negative); Barbiturates Screen Urine Negative (Negative); Benzodiazepines Screen Urine Negative (Negative); Cocaine Screen Urine Negative (Negative); Opiate Screen Urine Negative (Negative); PCP Screen Urine Negative (Negative); THC Screen Urine Negative (Negative)
[2020-09-22 12:46] LABS: Potassium, Radom Urine 11 mmol/L; Urine Creatinine 18 mg/dL (39-259); Urine Random Chloride 32 mmol/L; Urine Random Sodium 32 mmol/L
--- NOTE | 2020-09-22 13:02 | P.PN_ITS ---
Subjective Subjective: Interval history: No acute events overnight. Telemetry remained stable. Today morning states he is feeling a lot better. Walking around in the paredes without having any difficulty. Denies any nausea vomiting, headache. States his pain cramps are gone as well. Vitals/I&O/Wt Last Vital Signs Temp 97.9 F 09/22/20 12:00 Pulse 85 09/22/20 12:00 Resp 16 09/22/20 12:00 BP 132/86 09/22/20 12:00 Pulse Ox 100 09/22/20 12:00 09/21/20 09/22/20 09/22/20 22:59 06:59 14:59 Intake Total 1000 / 1000 240 / 1240 1360 / 1360 Balance 1000 / 1000 240 / 1240 1360 / 1360 Weight last 48 hrs Weight 114.033 kg Weight 113.852 kg Physical Exam Narrative: EXAM NARRATIVE: General: No acute distress, AO x3 HEENT: PERRLA, pupils bilaterally equal and reactive Chest: Normal vesicular breath sounds, no added sounds, equal good air entry bilaterally CVS: S1-S2 regular, soft pansystolic murmur present in parasternal area on the left, tachycardia, no gallops, no rubs Abdomen: Soft, nontender, no organomegaly, bowel sounds present Neuro: No focal deficits, no facial deformity, AO x3, power 5/5 in all limbs Data : 09/22/20 04:47 09/22/20 04:47 Micro: Microbiology 09/22/20 04:47 Blood Culture - Preliminary Blood SPECIMEN COLLECTED 09/22/20 04:47 Blood Culture - Preliminary Blood SPECIMEN COLLECTED A&P Assessment and plan (1) Exertional dyspnea: Status: Acute (2) Palpitation: Status: Acute (3) Dizziness: Status: Acute (4) Diabetes type 2, uncontrolled: Status: Chronic Qualifiers: Glycemic state: with hyperglycemia Qualified Code(s): E11.65 - Type 2 diabetes mellitus with hyperglycemia (5) Diabetic peripheral neuropathy associated with type 2 diabetes mellitus: Status: Acute (6) Essential hypertension: Status: Acute (7) Chronic renal impairment: Status: Acute (8) Statin intolerance: Status: Chronic Additional A&P Information Palpitations/dizziness/exertional dyspnea: Given the positive family history, history of uncontrolled diabetes cannot rule out unstable angina. EKG negative for any ST-T changes though consistent with tachycardia, first-degree heart block and biphasic P wave with possibility of early enlargement. Troponin cycle negative, TSH within normal limits. Echocardiogram results appreciated. A1c, lipid panel results appreciated. Continue with telemetry. N.p.o. after midnight for Lexiscan stress test tomorrow morning. Continue with aspirin 81 mg daily. Will decrease the dose of home dose of atorvastatin to have given his lipid panel. Symptoms could be secondary to arrhythmia from hyperkalemia. Patient takes lisinopril and daily back avocados at home. Patient counseled in detail. Continue to monitor BMP daily for now. Type 2 diabetes mellitus: Recent HbA1c done last month 8.3. History of uncontrolled diabetes mellitus. Since starting scale at high-dose protocol. Continue with home dose Lantus. Hypertension: Goal blood pressure less than 140/90 mmHg. For now hold off on lisinopril. Given tachycardia start patient on metoprolol 25 mg twice daily. CKD: Baseline creatinine seems to be ranging from 1.2-1.4 going as high as 1.8 l ast year. Medical reconciliation done for nephrotoxic drugs. Continue gentle hydration with normal saline at 75 cc/h. Monitor for fluid overload. Full code. Carb consistent cardiac diet. N.p.o. after midnight. Lovenox for DVT prophylaxis. Famotidine for PUD prophylaxis. Attestations Medical Necessity Statement*: Requires further hospitalization for evaluation of exertional palpitation, exertional dyspnea with Lexiscan stress test tomorrow morning. Time Spent in Patient Care: Greater than 35 minutes (>than 50% of time spent in counselling and/or direct pt care on unit) . Coding Level of Care Code Acute Market Research Consultant for Chg Fwd Diagnoses Exertional dyspnea R06.00 Palpitation R00.2 Dizziness R42 Diabetes type 2, uncontrolled E11.65 Glycemic state: with hyperglycemia Diabetic peripheral neuropathy associated with type 2 diabetes mellitus E11.42 Essential hypertension I10 Chronic renal impairment N18.9 Statin intolerance Z78.9
[2020-09-22 16:52] LABS: Glucose Point of Care 182 mg/dL (70-110)
--- NOTE | 2020-09-22 17:25 | USCV_ITS ---
Kruger Martir Age: 55 Gender: M : 1965 Exam Date: 09/22/2020 08:34 Ordering Phys: Gentry Contreras MD Technologist: Soraya Goyal Exam Location: [facility] [place] Indication: Heart block BP: 109 / 74 HR: 109 Rhythm: Sinus Technical Quality: Fair MEASUREMENTS (Male / Female) Normal Values 2D ECHO LV Diastolic Diameter PLAX 3.4 cm 4.2 - 5.9 / 3.9 - 5.3 cm LV Systolic Diameter PLAX 2.4 cm LV Chamber Size 3.9 cm IVS Diastolic Thickness 1.9 cm 0.6 - 1.0 / 0.6 - 0.9 cm IVS Systolic Thickness 2.3 cm LVPW Diastolic Thickness 1.5 cm 0.6 - 1.0 / 0.6 - 0.9 cm LVPW Systolic Thickness 1.4 cm RV Chamber Size 2.8 cm LVOT Diameter 2.0 cm LV Ejection Fraction 2D Teich 54.1 % LA Diameter 3.6 cm LA Width 2.9 cm LA Height 5.3 cm RA Width 2.3 cm RA Height 4.8 cm Aorta at Sinotubular Diameter 2.6 cm M-MODE LV Diastolic Diameter MM 4.9 cm 4.2 - 5.9 / 3.9 - 5.3 cm LV Systolic Diameter MM 2.5 cm LV Ejection Fraction MM Teich 79.7 % IVS Diastolic Thickness MM 1.2 cm 0.6 - 1.0 / 0.6 - 0.9 cm IVS Systolic Thickness MM 1.8 cm LVPW Diastolic Thickness MM 1.8 cm 0.6 - 1.0 / 0.6 - 0.9 cm LVPW Systolic Thickness MM 2.1 cm RV Diastolic Diameter MM 1.2 cm Aortic Annulus Diameter 3.3 cm LA Ao Ratio MM 1.2 MV E Point Septal Separation 0.2 cm DOPPLER AV Peak Velocity 84.0 cm/s LVOT Peak Velocity 63.0 cm/s AV Area Cont Eq vti 2.5 cm squared AV Area Cont Eq pk 2.5 cm squared MV Area PHT 6.3 cm squared MV E' Velocity 50.0 cm/s Mitral E to MV E' Ratio 5.6 Mitral E to LV E' Lateral Ratio 5.3 Mitral E to LV E' Septal Ratio 5.9 TR Peak Velocity 48.0 cm/s TR Peak Gradient 0.9 mmHg Right Atrial Pressure 3.0 mmHg Pulmonary Artery Systolic Pressu 3.9 mmHg PV Peak Velocity 73.0 cm/s RV Acceleration Time 0.1 s RV Ejection Time 0.2 s RV AcT/ET 0.4 FINDINGS Left Ventricle Normal left ventricular size and systolic function, EF 65% . No regional wall motion abnormalities. Right Ventricle The right ventricle is normal in size and function. Right Atrium The right atrium is normal in size. Left Atrium The left atrium is normal in size. Mitral Valve No gross abnormalities noted Aortic Valve No gross abnormalities noted Tricuspid Valve No gross abnormalities noted Pulmonic Valve Thickened pulmonic valve. Pericardium Normal pericardium without effusion. Aorta Normal ascending aorta dimension. CONCLUSIONS Normal left ventricular size and systolic function, EF 65% . No regional wall motion abnormalities. Minimally thickened pulmonic valve Normal chamber sizes There is no pericardial effusion. There are no intracardiac masses. No previous study is available for comparison. Dr Leslie Hair MD FACC (Electronically Signed) Final Date: 22 September 2020 10:05 S
[2020-09-22] MEDS: enoxaparin 40 mg/0.4 mL Syringe SUBCUT (17:45)
[2020-09-22] MEDS: atorvastatin 40 mg Tablet 20 MG PO (21:01)
[2020-09-22] MEDS: insulin glargine 100 units/1 mL 50 UNIT SUBCUT (21:02)
[2020-09-22 22:11] LABS: Glucose Point of Care 247 mg/dL (70-110)
[2020-09-23] VITALS (8 sets, daily range): BP systolic 125–187; BP diastolic 74–96; PULSE 56–80; RESP 17–20; TEMP 36.4–36.6; O2SAT 97–100
--- NOTE | 2020-09-23 06:42 | ECG_ITS ---
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 Interpretive Statements NAME OF STUDY: LEXISCAN SESTAMIBI STRESS TEST INDICATION: Atrial fibrillation PROCEDURE: At the baseline, the blood pressure was 154/96 mmHg, oxygen saturation 97% with a heart rate of 74 bpm. The electrocardiogram showed normal sinus rhythm with first-degree AV block, normal axis with nonspecific T wave inversion in lead III, aVF. The Lexiscan was infused over a period of 20 seconds. A total of 0.4 milligrams of Lexiscan was infused. The stress phase was continued for a total of 5 minutes. Heart rate at the end of the stress phase was 82 bpm, oxygen saturation 98% with a blood pressure of 135/84 mmHg. The EKG at the peak infusion revealed sinus rhythm with no significant ST-T wave changes. Sestamibi was injected 20 seconds after the Lexiscan infusion. Blood pressure at the end of the recovery phase was 143/79 mmHg, oxygen saturation 96% with a heart rate of 74 beats per minute. CONCLUSION: 1. No significant EKG changes with the LexiScan infusion. 2. No LexiScan induced chest pain or cardiac arrhythmia. 3. Normal blood pressure and heart rate response. 4. Sestamibi/sestamibi perfusion scan pending; see separate report. Electronically Signed On 09-23-2020 9:58:22 CDT by Poonam Cary M.D. [id number]
[2020-09-23 06:43] LABS: Glucose Point of Care 138 mg/dL (70-110)
--- NOTE | 2020-09-23 07:00 | NMCV_ITS ---
NM zeina perf SPECT r/s* [id number] Martir Kruger Age: 55 Gender: M : 1965 Exam Date: 09/23/2020 06:57 Ordering Phys: Gentry Contreras MD Technologist: AYE Allen Exam Location: [facility] Indications: SHORTNESS OF BREATH AND DIZZY STRESS TEST Please see separate stress test report in [facility] for full findings IMAGE PROTOCOL Rest/Stress 1 Lexiscan Day Radiopharmaceutical Dose (mCi) Administration Site Administered by Rest: Tc-99m 11.0 IV AYE Owens Sestamibi Stress:Tc-99m 33.0 IV AYE Owens Sestamibi Rest: 23-Sep-2020 60 Discovery 630 Stress: 23-Sep-2020 30 Discovery 630 0.4mg Lexiscan. Images obtained in supine and prone position. SPECT RESULTS Technical Quality: Excellent Raw Data Analysis: Normal Image Corrections: No attenuation or motion correction applied Summed Stress Score: 0 Summed Rest Score: 1 Summed Difference Score: 0 PERFUSION FINDINGS Small size perfusion abnormality of mild severity of apical lateral wall on rest images with improved tracer uptake on stress images. This is very likely suggestive of attenuation artifact. FUNCTIONAL RESULTS (calculated via Gated SPECT) Stress Image LV EF (%): 67 Stress EDV (mL):97 TID: 1.12 Stress ESV (mL):32 FUNCTIONAL FINDINGS: The left ventricle is normal in size. Transient Ischemia Dilatation of 1.1. There is normal left ventricular systolic function. The left ventricular ejection fraction is normal with a value of 67%. There is normal left ventricular wall thickening with no regional wall motion abnormality. Normal end-diastolic and end-systolic volumes. IMPRESSIONS 1. Myocardial perfusion imaging is normal. Attenuation artifact noted in apical lateral wall. 2. Overall left ventricular systolic function is normal without regional wall motion abnormalities. 3. The left ventricular ejection fraction is normal with a value of 67%. 4. No EKG changes noted with Lexiscan infusion. Refer to separate report for details 5. Scan indicates low risk for cardiac events. Poonam Cary MD (Electronically Signed) Final Date: 23 September 2020 10:05 S
[2020-09-23] MEDS: regadenoson 0.4 Mg/5 ml Syringe IVP (07:48)
[2020-09-23] MEDS: metoprolol tartrate 50 mg Tablet PO (09:18)
[2020-09-23] MEDS: famotidine 20 mg Tablet PO (09:18)
[2020-09-23] MEDS: aspirin 81 mg EC Tablet PO (09:18)
[2020-09-23 11:45] LABS: Glucose Point of Care 308 mg/dL (70-110)
--- NOTE | 2020-09-23 14:43 | P.DS_ITS ---
Discharge Providers Date of Admission: 09/21/20 15:35 Date of Discharge: September 23, 2020 Attending Provider at Admission: Gentry Contreras MD Attending Provider at Discharge: Huey Sanchez Primary Care Provider: MARK Kilpatrick Diagnoses at Discharge Discharge Diagnosis (1) Exertional dyspnea: Status: Acute (2) Palpitation: Status: Acute (3) Dizziness: Status: Acute (4) Diabetes type 2, uncontrolled: Status: Chronic Qualifiers: Glycemic state: with hyperglycemia Qualified Code(s): E11.65 - Type 2 diabetes mellitus with hyperglycemia (5) Diabetic peripheral neuropathy associated with type 2 diabetes mellitus: Status: Acute (6) Essential hypertension: Status: Acute (7) Chronic renal impairment: Status: Acute (8) Statin intolerance: Status: Chronic Reason for Visit Reason for Visit: SOB, Dizzy Hospital Course Hospital Course Pleasant 55-year-old gentleman with history of DM 2, HTN, CKD, HLD, statin intolerance, was hospitalized for assessment management due to exertional intolerance with shortness of breath, dizziness getting worse over prior week. Getting to the point of having trouble making 3-4 steps. With palpitations. On presentation noted and sinus tachycardia with first-degree block, heart rates in 120s. With noted hyperkalemia 5.5. COVID-19 rapid test negative. He is a never smoker, social drinker. CK was checked and was normal. Rosuvastatin was held on discharge and he was transitioned to atorvastatin 20 mg. He was monitored on telemetry. Troponin and EKG series not suggestive of acute [place]. He was assessed by echocardiography which showed normal ejection fraction, no regional wall motion abnormality. Minimally thickened pulmonary valve. No pericardial effusion. No significant valvular abnormality. CT angiogram of the chest did not reveal PE. Showed mild peribronchial wall thickening reminiscent of possible bronchitis and/or asthma. Incidentally noted hepatosplenomegaly with mild periportal lymphadenopathy. He said no chest pain or pressure. He has had no cough or phlegm production. Hyperkalemia improved with holding of lisinopril, and avoidance of high potassium foods, at home patient stated predilection for avocados. Cautioned against too many high potassium foods. Lisinopril is stopped for now. Please reassess potassium at next visit. His heart rates improved. His shortness of breath/dyspnea on exertion has quite significantly abated, and he is not required oxygen, saturating high 90s-100% on room air, ambulating around the unit today. Additionally assessed today by stress testing due to CAD risk factors, with noted normal perfusion imaging. Discussed with him low possibility of false negative testing, and cautioned to seek medical attention again in case of recurrence of symptoms. Given significant dyspnea on exertion, mild peribronchial inflammation he is referred additionally for pulmonary function testing to exclude other conditions including asthma that may be contributing. His tachycardia has resolved, with no significant arrhythmia apart from first- degree block noted on presentation. He will be monitoring pulse rate at home, in case of recurrence of tachycardia consider referral for additional cardiac monitoring. Somewhat lower on the differential, but with exertional intolerance, and with rosuvastatin held while in the hospital, tolerating atorvastatin 20 mg, for now his statin is changed to atorvastatin 20 mg. Please follow-up regarding any recurrence of symptoms. CK was normal, although this does not necessarily preclude statin myopathy. In case of no recurrence of symptoms consider discussion about escalating back to high intensity statin. Please continue to optimize risk factors of coronary disease with him, including hypertension. Diabetes. His A1c is elevated at 8.3. Continue follow-up regarding chronic kidney disease. Physical Exam Const: COMMON NORMALS: no acute distress and patient oriented x3 HENMT: COMMON NORMALS: oropharynx normal Neck/C-Spine: COMMON NORMALS: no JVD Chest: OTHER: Awake, alwert, dressed, carrying a coffee, ambulating. Feels well, denies any complaints. Requests to discharge home. Resp: COMMON NORMALS: normal respiratory effort and clear to auscultation bilaterally AUSCULTATION: clear to auscultation bilaterally Cardio: COMMON NORMALS: no JVD, regular rhythm, S1 normal heart sound present, S2 normal heart sound present and No murmurs present (Cardio) RHYTHM: regular rhythm HEART SOUNDS: S1 normal heart sound present and S2 normal heart sound present GI: COMMON NORMALS: Normal to inspection, nondistended, normoactive bowel sounds present, Soft to palpation and non-tender PALPATION: Yes Soft to palpation Extremity: COMMON NORMALS: no joint enlargement and no pedal edema Neuro: COMMON NORMALS: patient oriented x3 and moves all extremities Skin: COMMON NORMALS: no rashes or lesions noted GENERAL SKIN EXAM: no rashes or lesions noted Discharge Data Data Completed and Pending: Completed Studies During Hospitalization Category Date Time Status CT angio chest PE protcl [id number] Stat Cat Scan 09/21/20 13:[address] head wo con* 7 [id number] Urgent Cat Scan 09/21/20 12:34 Completed Sestamibi Stress Test Request Routi ne Exams 09/23/20 06:42 Completed XR chest 1V chavez ble [id number] Urgent Exams 09/21/20 12:18 Completed NM zeina perf SPECT r/s* [id number] Routin e Nuc Med 09/23/20 07:00 Completed CV. echo complete * [id number] Routine Ultrasound 09/22/20 17:25 Completed Pending at discharge Category Date Time Status Sestamibi Stress Test Request Routi ne Exams 09/21/20 17:32 Stop Req Blood Culture AM LABS Lab 09/22/20 04:47 Results Sputum Culture an d Gram Stain Stat Lab 09/21/20 15:58 Uncollected Labs from last 24 hours 09/23/20 09/23/20 09/22/20 11:23 06:25 22:05 POC Glucose 308 H 138 H 247 H 09/22/20 16:43 POC Glucose 182 H Vitals: Last Vital Signs Temp 97.5 F L 09/23/20 12:00 Pulse 56 L 09/23/20 12:00 Resp 18 09/23/20 12:00 BP 128/78 09/23/20 12:00 Pulse Ox 98 09/23/20 13:05 Discharge Plan Discharge Patient Disposition: Home Condition: Stable Prescriptions: New atorvastatin 40 mg Tablet 20 mg PO BEDTIME Qty: 30 RF: 0 albuterol sulfate 90 mcg/actuation HFA aerosol inhaler 1 inh inhalation QID PRN (Reason: shortness of breath or wheezing) Qty: 8.5 RF: 3 Continued aspirin [Adult Aspirin Regimen] 81 mg tablet,delayed release (DR/EC) 81 mg PO DAILY RF: 0 Byetta 10 mcg/dose(250 mcg/mL) 2.4 mL pen injector 10 mcg SUBCUT DAILY RF: 0 Jardiance 10 mg tablet 10 mg PO DAILY RF: 0 Humalog KwikPen Insulin 100 unit/mL insulin pen See Rx Instructions .ROUTE .COMPLEX RF: 0 Levemir FlexTouch U-100 Insuln 100 unit/mL (3 mL) insulin pen 25 unit SUBCUT BID RF: 0 Held multivitamin [Daily Multi-Vitamin] Tablet 1 tab PO DAILY RF: 0 Hold Instructions: Resume on 10/07/20. Discontinued lisinopril 2.5 mg tablet 2.5 mg PO DAILY RF: 0 rosuvastatin 10 mg tablet 10 mg PO DAILY RF: 0 No Action (DME) FreeStyle Julius 2 Sensor Kit See Rx Instructions .ROUTE .MEDSUPPLY Qty: 1 RF: 3 Discharge Orders: Discharge Order (Routine); Ordered 09/23/20 Ordered By: Huey Sanchez Other Ambulatory Orders: Pulmonary Function Screen with Bronchodilator (Routine) Timeframe: 2 Weeks Facility: [facility] - Location: Respiratory Therapy Ordered By: Huey Sanchez Referrals: Sarika Corbin FNP [Primary Care Provider] - 7-10 days Discharge Diet: Diabetic Patient Instructions: Atorvastatin (By mouth), Potassium Content of Foods List (GEN), Hyperkalemia (GEN) Activity Restrictions/Additional Instructions: Pleased hold lisinopril. It contributes to retention of potassium. Please limit potassium intake in foods. Please have your primary doctor recheck potassium level at next visit. Please follow-up with the pulmonary function testing to closer assess regarding lung function. Please discuss additionally with your primary doctor regarding noted changes on CT of your chest with appearance of mild peribronchial wall thickening suggestive of possibly bronchitis versus possibly something like asthma. Albuterol inhaler is provided for you as needed in case you get additional episode. Please monitor your heart rates at home. If your heart rates are noted persistently elevated, even at rest (above 100), please discuss with your primary doctor, consider referral for heart monitor. Please note with history of intolerance to statin, with exertional intolerance for now rosuvastatin is stopped. Statin induced myopathy is probably less likely, but a consideration. For now your cholesterol medication is changed to lower intensity with atorvastatin 20 mg. Please revisit with your primary doctor regarding any recurrence of symptoms. Please monitor blood pressures at home, document values to bring to your appointment. Please continue to work with your primary provider to optimize diabetes control. Your A1c is 8.3. Please continue follow-up with your primary provider with regards to chronic kid carrie disease. Avoid any medications that may worsen kidney function like NSAIDs, like ibuprofen, Aleve, etc. Discharge Attestations Time Spent in Discharge Care*: greater than 30 min Status at Discharge: Cognitive status at discharge: cognitively intact , Behavioral status at discharge: cooperative , Quality Metrics Clinical Quality Measures During this hospital stay, did patient experience: None Coding Level of Care Code Acute g FW CO note Diagnoses Exertional dyspnea R06.00 Palpitation R00.2 Dizziness R42 Diabetes type 2, uncontrolled E11.65 Glycemic state: with hyperglycemia Diabetic peripheral neuropathy associated with type 2 diabetes mellitus E11.42 Essential hypertension I10 Chronic renal impairment N18.9 Statin intolerance Z78.9
== END 2020-09-23 14:59 | disposition home or self-care (01) ==
LOC: ER 12:07 → MEDSURG 15:52
PROVIDERS: Admitting Provider Student in an Organized Health Care Education/Training Program; Emergency Provider Family Medicine; PCP Nurse Practitioner Family; Visit Provider Internal Medicine
DX: R06.00 Dyspnea, unspecified (principal); R00.2 Palpitations; R42 Dizziness and giddiness; E11.65 Type 2 diabetes mellitus with hyperglycemia; E11.42 Type 2 diabetes mellitus with diabetic polyneuropathy; E11.22 Type 2 diabetes mellitus with diabetic chronic kidney disease; I12.9 Hypertensive chronic kidney disease with stage 1 through stage 4 chronic kidney disease, or unspecified chronic kidney disease; N18.9 Chronic kidney disease, unspecified; E78.2 Mixed hyperlipidemia; E66.9 Obesity, unspecified; Z68.37 Body mass index [BMI] 37.0-37.9, adult
CPT/HCPCS: 36416; 70450; 71045; 71275; 78452; 80048; 80053; 80061; 80306; 81003; 82436; 82550; 82570; 82962; 83540; 83550; 83605; 83615; 83735; 83880; 84133; 84145; 84300; 84443; 84484; 85025; 85378; 85384; 86140; 87040; 87426; 87804; 93005; 93017; 93306; 94664; 96360; 96361; 96372; 99285; A9500; G0378; J1650; J1815 ×2; J2785; J7030; Q9967

== ENCOUNTER → 2021-02-24 10:33 | Outpatient (BNVA) | payer OTHER, SELFPAY | PROVIDERS: PCP Nurse Practitioner Family; Visit Provider Nurse Practitioner Family | DX: I10 Essential (primary) hypertension (principal); E11.69 Type 2 diabetes mellitus with other specified complication; E78.5 Hyperlipidemia, unspecified | CPT/HCPCS: 87070; 87077; 87184 ==

== ENCOUNTER 2021-02-26 08:11 | Outpatient (CLI) | payer OTHER, SELFPAY | END 2021-02-26 08:12 | disposition home or self-care (01) | LOC: WOUND 08:12 | PROVIDERS: PCP Nurse Practitioner Family; Visit Provider Nurse Practitioner Family | DX: I96 Gangrene, not elsewhere classified (principal); E11.621 Type 2 diabetes mellitus with foot ulcer; L97.523 Non-pressure chronic ulcer 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 | CPT/HCPCS: 11042; G0463 ==

== ENCOUNTER 2021-02-26 09:44 | Outpatient (CLI) | payer OTHER, SELFPAY ==
--- NOTE | 2021-02-26 09:50 | XRR_ITS ---
PROCEDURE INFORMATION: Exam: XR Left Foot Exam date and time: 02/26/2021 9:50 AM Age: 56 years old Clinical indication: Condition or disease; Prior surgery; Patient HX: History--ft wound x 1 yr but has been giving issues x 1 wk; Additional info: Type ii dm w/foot ulcer TECHNIQUE: Imaging protocol: XR Left foot. Views: 3 or more views. COMPARISON: CR XR foot LT min 3V* [id number] 03/04/2020 9:11 AM FINDINGS: Bones/joints: Normal. Soft tissues: Normal. XR/XR foot LT min 3V* [id number] IMPRESSION: No acute findings.
== END 2021-02-26 09:45 | disposition home or self-care (01) ==
PROVIDERS: PCP Nurse Practitioner Family; Visit Provider Nurse Practitioner Family
DX: E11.621 Type 2 diabetes mellitus with foot ulcer (principal)
CPT/HCPCS: 73630

== ENCOUNTER 2021-03-04 10:11 | Outpatient (CLI) | payer OTHER, SELFPAY | END 2021-03-04 10:12 | disposition home or self-care (01) | LOC: WOUND 10:12 | PROVIDERS: PCP Nurse Practitioner Family; Visit Provider Nurse Practitioner Family | DX: I96 Gangrene, not elsewhere classified (principal); E11.621 Type 2 diabetes mellitus with foot ulcer; L97.522 Non-pressure chronic ulcer of other part of left foot with fat layer exposed | CPT/HCPCS: 11042 ==

== ENCOUNTER 2021-03-12 09:10 | Outpatient (CLI) | payer OTHER, SELFPAY | END 2021-03-12 09:11 | disposition home or self-care (01) | LOC: WOUND 09:12 | PROVIDERS: PCP Nurse Practitioner Family; Visit Provider Thoracic Surgery (Cardiothoracic Vascular Surgery) | DX: I96 Gangrene, not elsewhere classified (principal); E11.621 Type 2 diabetes mellitus with foot ulcer; L97.522 Non-pressure chronic ulcer of other part of left foot with fat layer exposed | CPT/HCPCS: 11042 ==

== ENCOUNTER 2021-03-19 08:45 | Outpatient (CLI) | payer OTHER, SELFPAY | END 2021-03-19 08:46 | disposition home or self-care (01) | LOC: WOUND 08:45 | PROVIDERS: PCP Nurse Practitioner Family; Visit Provider Thoracic Surgery (Cardiothoracic Vascular Surgery) | DX: I96 Gangrene, not elsewhere classified (principal); E11.621 Type 2 diabetes mellitus with foot ulcer; L97.522 Non-pressure chronic ulcer of other part of left foot with fat layer exposed | CPT/HCPCS: 11042 ==

== ENCOUNTER 2021-03-25 16:12 | Inpatient (IN) | payer OTHER, SELFPAY ==
[2021-03-25 16:40] VITALS: BP 185/103; PULSE 97; RESP 24; TEMP 36.3; O2SAT 100; BMI 33.2
[2021-03-25 18:44] LABS: Basophils % 0.3 %; Eosinophils # 0.2 10^3/uL (0.0-0.8); Eosinophils % 1.6 %; Hematocrit 46.9 % (42.0-52.0); Hemoglobin 14.7 g/dL (11.7-16.6); Lymphocytes # 0.3 10^3/uL (0.8-4.8); Lymphocytes % 2.5 %; Mean Corpuscular HGB Conc 31.3 g/dL (30.0-36.0); Mean Corpuscular Hemoglobin 26.8 pg (28.0-34.0); Mean Corpuscular Volume 85.4 fl (80-94); Mean Platelet Volume 11.6 fL (7.4-10.4); Monocytes # 0.6 10^3/uL (0.2-0.9); Monocytes % 4.5 %; Neutrophils # 11.46 10^3/uL (1.8-7.7); Nucleated Red Blood Cells % 0 %; Platelet Count 124 10^3/cmm (130-400); Red Blood Count 5.49 10^6/uL (4.1-5.3); Red Cell Distribution Width 12.7 % (12.1-15.1); White Blood Count 12.8 10^3/uL (4.0-10.0)
[2021-03-25 19:12] LABS: Alanine Aminotransferase 11 U/L (0-41); Albumin Level 4.1 g/dL (3.5-5.2); Alkaline Phosphatase 110 IU/L (40-130); Anion Gap 34.6 (5-19); Aspartate Amino Transferase 11 U/L (0-40); Blood Urea Nitrogen 27 mg/dL (6-20); Calcium 9.5 mg/dL (8.5-10.5); Carbon Dioxide 13 mmol/L (22-29); Chloride 86 mmol/L (98-107); Globulin 4.3 g/dL (1.3-4.6); Glomerular Filtration Rate 48.1 mL/min (90-130); Lipase 11 U/L (13-60); Osmolality Calculated 299 mOsm/kg (285-295); Potassium 4.6 mmol/L (3.5-5.1); Sodium 129 mmol/L (136-145); Total Bilirubin 0.7 mg/dL (0.15-1.2); Total Protein 8.4 g/dL (6.6-8.7)
[2021-03-25 19:18] LABS: Glucose 556 mg/dL (65-115)
[2021-03-25 19:42] LABS: Ketone (Acetest) Serum Negative (Negative)
--- NOTE | 2021-03-25 20:19 | CTR_ITS ---
PROCEDURE INFORMATION: Exam: CT Abdomen And Pelvis With Contrast Exam date and time: 03/25/2021 8:19 PM Age: 56 years old Clinical indication: Abdominal pain; Localized; Left upper quadrant (luq); Patient HX: C/O luq pain with n/v. History of pancreatitis. ; Additional info: Abd pain TECHNIQUE: Imaging protocol: Computed tomography of the abdomen and pelvis with contrast. Total images: 252 Radiation optimization: All CT scans at this facility use at least one of these dose optimization techniques: automated exposure control; mA and/or kV adjustment per patient size (includes targeted exams where dose is matched to clinical indication); or iterative reconstruction. Contrast material: OMNI 300; Contrast volume: 95 ml; Contrast route: INTRAVENOUS (IV); COMPARISON: CT angio chest PE protcl [id number] 09/21/2020 1:57 PM RADIATION DOSE METRICS: Total DLP (mGy-cm): 1915.24 FINDINGS: Lungs: Limited assessment of the lung bases fails to reveal evidence for active cardiopulmonary process. Rare calcified granuloma of antecedent disease. Mediastinal space: Mild mucosal thickening of the distal esophagus potentially from chronic esophagitis. Liver: Mild diffuse fatty infiltration of the liver. No visible hepatic mass or cystic structure. Gallbladder and bile ducts: Unremarkable. No calcified stones. No ductal dilation. Pancreas: Moderate pancreatic atrophy and partial fatty replacement. No visible pancreatic ductal ectasia. Spleen: Splenomegaly. Rare calcified splenic granuloma of antecedent disease. Adrenal glands: Adrenal glands unremarkable. Kidneys and ureters: No hydronephrosis or perinephric fluid. No visible nephrolithiasis or visible ureterolithiasis. No visible renal mass. Stomach and bowel: Assessment of the hollow viscus fails to reveal evidence of active or acute pathology. Nonobstructed bowel pattern. No visible acute diverticulitis. No visible adynamic or reactive ileus. Appendix: The appendix is visualized and appears noninflamed. Intraperitoneal space: No visible pneumoperitoneum or intraperitoneal ascites. Vasculature: Portal vein patent. The abdominal aorta is nonaneurysmal. Mild arterial sclerotic disease. Lymph nodes: No pathologically enlarged lymph nodes. Urinary bladder: Urinary bladder unremarkable. Reproductive: Mild prostate enlargement. Bones/joints: No visible acute osseous abnormality. Soft tissues: Obesity period CT/CT abdomen pelvis w con* [id number] IMPRESSION: 1. Currently no visible evidence for acute abdominal or pelvic pathologic process. 2. Mild diffuse fatty infiltration of the liver. 3. Splenomegaly. 4. Mild mucosal thickening of the distal esophagus potentially from chronic esophagitis.
[2021-03-25 20:26] LABS: Lactate (Lactic Acid level) 3.3 mmol/L (0.5-2.2)
[2021-03-25 20:29] LABS: Alcohol Level < 10 mg/dL (0-10)
[2021-03-25] MEDS: sodium chloride 0.9% 1,000 ML 999 ML IV ×2 (20:29→23:08)
[2021-03-25 20:30] LABS: Glucose Point of Care 592 mg/dL (70-110)
[2021-03-25] MEDS: insulin regular-human 250 UNIT in sodium chloride 0.9% 250 ML 16.16 UNIT IV (20:31)
[2021-03-25] MEDS: insulin regular-human 100 units/1 mL 10 UNIT IVP (20:35)
[2021-03-25 20:40] VITALS: RESP 16
[2021-03-25] MEDS: HYDROmorphone 1 mg/mL INJ 1 mL IVP ×2 (20:40→23:08)
[2021-03-25] MEDS: ondansetron 2 mg/ML SDV 2 mL 8 MG IVP (20:40)
--- NOTE | 2021-03-25 21:36 | ED_ITS ---
HPI - Abdominal Pain General: Chief Complaint: Abdominal Pain Stated Complaint: n/v; sob; abd discomfort Time Seen by Provider: 03/25/21 19:53 History of Present Illness: HPI narrative: 56-year-old male diabetic with a history of pancreatitis reports 24 hours of significant abdominal discomfort and vomiting. Abdominal discomfort seems to be more in the left upper quadrant. No fever. He has vomited multiple times a day and last night. No significant diar rhea. GHOSH elicited complaint: abdominal pain Pertinent past history: other Onset (ago): hour(s) (24) Pain Consistency: constant Location: LUQ Severity: severe Quality: cramping and stabbing Radiation: none Migration to: no migration Exacerbating factors: vomiting Relieving factors: nothing Associated Symptoms: Reports anorexia, nausea, poor appetite and vomiting; Denies coffee ground emesis, constipation, diarrhea, dysuria, fever(s), hematochezia and syncope Review of Systems Const: Denies: fever(s) Card: Denies: chest pain or syncope Resp: Denies: dyspnea, productive cough or non-productive cough GI: Reports: nausea and vomiting; Denies: coffee ground emesis, diarrhea, constipation or hematochezia : Denies: dysuria PFSH ED PFSH: Medical History (Updated 03/25/21 @ 23:00 by Jacoby Schuler DO) Acquired rearfoot varus Cavus foot, acquired Chronic renal impairment 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 Chronic ulcer of left foot with fat layer exposed Diabetes type 2, uncontrolled Diabetic peripheral neuropathy associated with type 2 diabetes mellitus Essential hypertension Foot abscess, left Hyperlipidemia associated with type 2 diabetes mellitus Hyperlipidemia, mixed Non-pressure chronic ulcer 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 Obesity Statin intolerance Surgical History Amputated toe of right foot secondary to osteomyelitis 4th right toe History of amputation of lesser toe History of partial amputation of toe of right foot Family History Father Diabetes Mother Diabetes Other Hypertension Social History Smoking and tobacco status: never smoked Second hand smoke exposure: No Smoking risk assessment/counseling performed?: No Alcohol intake: former Desire information about alcohol rehabilitation?: No Counseling given: No Desire information about substance/drug rehabilitation?: No Counseling given: No Adopted: No Caregiver/support person: No Lives independently: Yes Household members: spouse Housing: House Marital status: service: No Current occupational status: employed Pets and animals: Yes History of recent travel: No Current gender identity: Male Physical Exam Const: COMMON NORMALS: alert GENERAL APPEARANCE: cooperative and ill appearing; not frail appearing HENMT: COMMON NORMALS: normocephalic and atraumatic HEAD & SCALP: normocephalic and atraumatic Eye: COMMON NORMALS: Equal, round and reactive pupils present and EOMs intact bilaterally PUPIL: Yes Equal, round and reactive pupils present Chest: COMMONS NORMALS: normal inspection of the chest Cardio: COMMON NORMALS: regular rate and regular rhythm RATE: regular rate RHYTHM: regular rhythm GI: COMMON NORMALS: Normal to inspection, nondistended, normoactive bowel sounds present and Soft to palpation PALPATION: Yes Soft to palpation and Yes Tenderness to palpation present (GI) Details: LUQ Extremity: GENERAL: No edema Neuro: SENSORIUM/ORIENTATION: Yes alert Course Consultations: Consultation #1: [email or web address] Vital Signs: Vital signs: Vital Signs Temperature 97.4 F L 03/25/21 16:40 Pulse Rate 97 03/25/21 16:40 Respiratory Rate 16 03/25/21 20:40 Blood Pressure 185/103 03/25/21 16:40 Pulse Oximetry 100 03/25/21 16:40 MDM - Abdominal Pain MDM Narrative: Medical decision making narrative: Patient presents with left upper quadrant abdominal pain, intractable vomiting. Creatinine is 1.5. White blood cell count is 12.8. Platelet count is 124. Bicarbonate level is 13. Serum ketones are negative. pH is 7.27. This patient has a metabolic acidosis with anion gap, that is nonketotic. His blood sugars are in the upper 500s. He was given a bolus of insulin and placed on insulin drip as well as bolus fluid. He will need to be admitted to the ICU. No ICU beds are available, so he will become in an ICU patient in the ER as a hold patient for the night. Patient and family counseled. Lab Data: Labs: Lab Results 03/25/21 03/25/21 03/25/21 18:36 18:36 18:36 WBC 12.8 10^3/uL H 10 ^3/uL (4.0-10.0) RBC 5.49 10^6/uL H 10 ^6/uL (4.1-5.3) Hgb 14.7 g/dL g/dL (11.7-16.6) Hct 46.9 % % (42.0-52.0) MCV 85.4 fl fl (80-94) MCH 26.8 pg L pg (28.0-34.0) MCHC 31.3 g/dL g/dL (30.0-36.0) RDW 12.7 % % (12.1-15.1) Plt Count 124 10^3/cmm L 10 ^3/cmm (130-400) MPV 11.6 fL H fL (7.4-10.4) Neut % (Auto) 90.0 % % Lymph % (Auto) 2.5 % % Cascade % (Auto) 4.5 % % Eos % (Auto) 1.6 % % Baso % (Auto) 0.3 % % Neut # (Auto) 11.46 10^3/uL H 1 0^3/uL (1.8-7.7) Lymph # (Auto) 0.3 10^3/uL L 10^ 3/uL (0.8-4.8) Cascade # (Auto) 0.6 10^3/uL 10^3/ uL (0.2-0.9) Eos # (Auto) 0.2 10^3/uL 10^3/ uL (0.0-0.8) Baso # (Auto) 0.0 10^3/uL 10^3/ uL (0.0-0.1) Nucleated RBC % (a uto) 0 % % Nucleated RBCs # 0.0 /100WBC /100W BC Specimen Type Sample Site ABG pH ABG pCO2 ABG pO2 ABG HCO3 ABG O2 Saturation ABG Base Excess Bj Test A-a O2 Gradient Hematocrit Hgb O2 Saturation Carboxyhemoglobin Methemoglobin Total Hemoglobin Ionized Calcium O2 Delivery Device FiO2 Photographic Reproduction Technician ID Sodium 129 mmol/L L mmol /L (136-145) Potassium 4.6 mmol/L mmol/L (3.5-5.1) Chloride 86 mmol/L L mmol/ L (98-107) Carbon Dioxide 13 mmol/L L mmol/ L (22-29) Anion Gap 34.6 H (5-19) BUN 27 mg/dL H mg/dL (6-20) Creatinine 1.5 mg/dL H mg/dL (0.7-1.2) GFR Calculation 48.1 mL/min L mL/ min (90-130) Glucose 556 mg/dL H* mg/d L (65-115) POC Glucose Calculated Osmolal ity 299 mOsm/kg H mOs m/kg (285-295) Lactate Calcium 9.5 mg/dL mg/dL (8.5-10.5) Total Bilirubin 0.7 mg/dL mg/dL (0.15-1.2) AST 11 U/L U/L (0-40) ALT 11 U/L U/L (0-41) Alkaline Phosphata se 110 IU/L IU/L (40-130) Total Protein 8.4 g/dL g/dL (6.6-8.7) Albumin 4.1 g/dL g/dL (3.5-5.2) Globulin 4.3 g/dL g/dL (1.3-4.6) Lipase 11 U/L L U/L (13-60) Ethyl Alcohol Serum Ketones Negative (Negative) 03/25/21 03/25/21 03/25/21 20:03 20:03 20:26 WBC RBC Hgb Hct MCV MCH MCHC RDW Plt Count MPV Neut % (Auto) Lymph % (Auto) Cascade % (Auto) Eos % (Auto) Baso % (Auto) Neut # (Auto) Lymph # (Auto) Cascade # (Auto) Eos # (Auto) Baso # (Auto) Nucleated RBC % (a uto) Nucleated RBCs # Specimen Type Sample Site ABG pH ABG pCO2 ABG pO2 ABG HCO3 ABG O2 Saturation ABG Base Excess Bj Test A-a O2 Gradient Hematocrit Hgb O2 Saturation Carboxyhemoglobin Methemoglobin Total Hemoglobin Ionized Calcium O2 Delivery Device FiO2 Photographic Reproduction Technician ID Sodium Potassium Chloride Carbon Dioxide Anion Gap BUN Creatinine GFR Calculation Glucose POC Glucose 592 mg/dL H* mg/d L (70-110) Calculated Osmolal ity Lactate 3.3 mmol/L H mmol /L (0.5-2.2) Calcium Total Bilirubin AST ALT Alkaline Phosphata se Total Protein Albumin Globulin Lipase Ethyl Alcohol < 10 mg/dL mg/dL (0-10) Serum Ketones 03/25/21 03/25/21 21:12 21:53 WBC RBC Hgb Hct MCV MCH MCHC RDW Plt Count MPV Neut % (Auto) Lymph % (Auto) Cascade % (Auto) Eos % (Auto) Baso % (Auto) Neut # (Auto) Lymph # (Auto) Cascade # (Auto) Eos # (Auto) Baso # (Auto) Nucleated RBC % (a uto) Nucleated RBCs # Specimen Type Arterial Sample Site Radial, right ABG pH 7.27 L (7.35-7.45) ABG pCO2 31.8 mmHg L mmHg (35-45) ABG pO2 97.2 mmHg mmHg (80.0-100.0) ABG HCO3 14.7 mmol/L L mmo l/L (22-26) ABG O2 Saturation 97.0 ABG Base Excess -10.9 mmol/L L mm ol/L (-2.0-2.0) Bj Test Pos A-a O2 Gradient 1.4 mmHg L mmHg (5-10) Hematocrit 42.5 % % (42-52) Hgb O2 Saturation 95.8 % % (95-100) Carboxyhemoglobin 0.9 %THgb %THgb (0.4-20.1) Methemoglobin 0.3 % L % (0.4-1.5) Total Hemoglobin 13.9 g/dL L g/dL (14-18) Ionized Calcium 1.2 mmol/L mmol/L (1.1-1.4) O2 Delivery Device None FiO2 21.0 % % Photographic Reproduction Technician ID Hensa Sodium 137.0 mmol/L mmol /L (131-143) Potassium 3.5 mmol/L mmol/L (3.5-5.0) Chloride Carbon Dioxide Anion Gap BUN Creatinine GFR Calculation Glucose 565.0 mg/dL H mg/ dL (70-115) POC Glucose 546 mg/dL H* mg/d L (70-110) Calculated Osmolal ity Lactate Calcium Total Bilirubin AST ALT Alkaline Phosphata se Total Protein Albumin Globulin Lipase Ethyl Alcohol Serum Ketones Critical Care Time Critical Care Time: Critical Care Time: Yes Total Critical Care Time: 40 Attestation: This case had a high probability of a clinically significant, sudden, or life threatening deterioration of this patient's condition which required my full and direct attention, intervention and personal management. Time is independent of any procedures performed Discharge Plan Discharge Patient Disposition: Admitted As Inpatient Clinical Impression: Hyperosmolar hyperglycemic state (HHS) Condition: Stable Coding Level of Care Code ED Brine Well Operator for Chg Fwd Exam Detailed
[2021-03-25 21:38] LABS: ABG PCO2 31.8 mmHg (35-45); ABG PH Result 7.27 (7.35-7.45); Alveolar-Arterial Oxygen Gradi 1.4 mmHg (5-10); Arterial Blood Gas Hematocrit 42.5 % (42-52); Base Excess ABG -10.9 mmol/L (-2.0-2.0); Blood Gas Allen Test Pos; Blood Gas Sample Site Radial, right; Blood Gas Sample Type Arterial; Carboxyhemoglobin 0.9 %THgb (0.4-20.1); HCO3 ABG 14.7 mmol/L (22-26); HGB O2 Sat 95.8 % (95-100); Ionized Calcium Level - ABG 1.2 mmol/L (1.1-1.4); Methemoglobin 0.3 % (0.4-1.5); PO2 ABG 97.2 mmHg (80.0-100.0); Potassium Level - ABG 3.5 mmol/L (3.5-5.0); Total Hemoglobin 13.9 g/dL (14-18)
[2021-03-25] MEDS: iohexol 300 mg/mL 100 mL Btl IV (21:42)
[2021-03-25 21:57] LABS: Glucose Point of Care 546 mg/dL (70-110)
--- NOTE | 2021-03-25 22:48 | P.HP_ITS ---
Providers/Chief Complaint Primary Care Provider: MARK Kilpatrick Chief Complaint: n/v; sob; abd discomfort History of Present Illness Martir Kruger is a 56 year old male with past medical history of type 2 diabetes mellitus, diabetic foot ulcer, Was brought in with chief complaint of nausea, intractable vomiting, inability to keep anything down, going on for the last 1 day.Patient was also complaining of generalized abdominal pain.He denied any fever chest pain shortness of breath cough, diarrhea, any urinary complaints. Patient has not been taking his insulin for last 1 month, as he thinks that he is losing weight. Upon arrival in the ER he was worked up for above-mentioned complaints. Pertinent imaging studies: CT abdomen pelvis w con: no Acute abdominal pathology noted. Mild diffuse fatty infiltration of the liver. Splenomegaly. Mild mucosal thickening of the distal esophagus potentially from chronic esophagitis. Pertinent labs: WBC 12.8, H&H:14/46 , plt : 124 , serum sodium 129, serum potassium 4.6, serum bicarb:13 , BUN/ serum creatinine:27/ 1.5 , random blood sugar: 592 , serum lactate:3.3 lipase 11, ABG: pH 7.27, PCO2 31, PO2 97, A Patient received 2 L normal saline bolus in the ER, and was started on insulin drip Review of Systems Const: Denies: fever(s), change in appetite or diaphoresis Card: Denies: palpitations, edema, swelling of feet/ankles, dyspnea on exertion, orthopnea or leg pain with exertion Resp: Denies: dyspnea, productive cough, wheezing or pain on inspiration GI: Denies: abdominal pain, nausea, vomiting, diarrhea or constipation : Denies: flank pain or difficulty urinating Musc: Denies: back pain, extremity pain or extremity swelling Neuro: Denies: headache(s), difficulty walking or confusion Medications/Allergies Home Medications Medication Instructions Recorded Confirmed Last Taken Type aspirin 81 mg tablet,delayed 81 mg PO DAILY 06/16/19 02/24/21 09/21/20 History release multivitamin 1 tab PO DAILY 06/16/19 02/24/21 09/21/20 History flash glucose sensor #1 ea 08/21/20 02/24/21 Unknown Rx Byetta 10 mcg SUBCUT DAILY 09/21/20 02/24/21 09/21/20 History albuterol sulfate 1 inh INHALATION QID PRN #8.5 g 09/23/20 02/24/21 Unknown Rx atorvastatin 20 mg PO BEDTIME #30 tab 09/23/20 02/24/21 Unknown Rx insulin detemir U-100 100 unit/mL See Rx Instructions .ROUTE 11/08/20 02/24/21 Unknown Rx (3 mL) subcutaneous pen .COMPLEX #15 ml insulin lispro 100 unit/mL See Rx Instructions .ROUTE 11/08/20 02/24/21 Unknown Rx subcutaneous pen .COMPLEX #15 ml empagliflozin 10 mg tablet See Rx Instructions .ROUTE 11/22/20 02/24/21 Unknown Rx .COMPLEX #30 tab clindamycin HCl 300 mg capsule 300 mg PO BID 7 Days #14 cap 02/24/21 02/24/21 Unknown Rx Allergies Allergy/AdvReac Type Severity Reaction Status Date / Time No Known Allergies Allergy Verified 02/24/21 10:04 PFSH Acute PFSH: Medical History (Updated 03/25/21 @ 23:00 by Jacoby Schuler DO) Acquired rearfoot varus Cavus foot, acquired Chronic renal impairment 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 Chronic ulcer of left foot with fat layer exposed Diabetes type 2, uncontrolled Diabetic peripheral neuropathy associated with type 2 diabetes mellitus Essential hypertension Foot abscess, left Hyperlipidemia associated with type 2 diabetes mellitus Hyperlipidemia, mixed Non-pressure chronic ulcer 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 Obesity Statin intolerance Surgical History Amputated toe of right foot secondary to osteomyelitis 4th right toe History of amputation of lesser toe History of partial amputation of toe of right foot Family History Father Diabetes Mother Diabetes Other Hypertension Social History Smoking and tobacco status: never smoked Second hand smoke exposure: No Smoking risk assessment/counseling performed?: No Alcohol intake: former Desire information about alcohol rehabilitation?: No Counseling given: No Desire information about substance/drug rehabilitation?: No Counseling given: No Adopted: No Caregiver/support person: No Lives independently: Yes Household members: spouse Housing: House Marital status: service: No Current occupational status: employed Pets and animals: Yes History of recent travel: No Current gender identity: Male Vitals/I&O/Wt Last Vital Signs Temp 97.4 F L 03/25/21 16:40 Pulse 97 03/25/21 16:40 Resp 16 03/25/21 20:40 BP 185/103 03/25/21 16:40 Pulse Ox 100 03/25/21 16:40 03/25/21 03/25/21 03/25/21 06:59 14:59 22:59 Intake Total 22.893 / 22.893 Balance 22.893 / 22.893 Weight last 48 hrs Weight 102.058 kg Physical Exam Const: COMMON NORMALS: patient oriented x3 HENMT: COMMON NORMALS: normocephalic and atraumatic HEAD & SCALP: normocephalic and atraumatic Resp: COMMON NORMALS: clear to auscultation bilaterally AUSCULTATION: clear to auscultation bilaterally Cardio: COMMON NORMALS: regular rate, regular rhythm, S1 normal heart sound present, S2 normal heart sound present, No gallops present (Cardio), No murmurs present (Cardio), No rub (Cardio) and Peripheral pulses 2+ throughout RATE: regular rate RHYTHM: regular rhythm HEART SOUNDS: S1 normal heart sound present and S2 normal heart sound present PERIPHERAL PULSES: Peripheral pulses 2+ throughout GI: COMMON NORMALS: Normal to inspection, nondistended, normoactive bowel sounds present, Soft to palpation, non-tender, No hepatosplenomegaly present and no masses AUSCULTATION: Yes normoactive bowel sounds PALPATION: Yes Soft to palpation and Yes No hepatosplenomegaly present RECTAL EXAM: Yes deferred Extremity: COMMON NORMALS: no clubbing, cyanosis or edema and no pedal edema Neuro: COMMON NORMALS: patient oriented x3 Data : 03/25/21 18:36 03/25/21 23:21 A&P Assessment and plan (1) Hyperosmolar hyperglycemic state (HHS): Status: Acute (2) DKA (diabetic ketoacidosis): Status: Acute (3) Essential hypertension: Status: Acute (4) Diabetes: Status: Acute (5) CKD (chronic kidney disease) stage 3, GFR 30-59 ml/min: Status: Acute Additional A&P Information 56 year old male with past medical history of type 2 diabetes mellitus, diabetic foot ulcer, Was brought in with chief complaint of nausea, intractable vomiting, inability to keep anything down, going on for the last 1 day.Patient was also complaining of generalized abdominal pain. #DKA/ HHS : On DKA/HHS protocol. Continue insulin drip Monitor anion gap N.p.o. Continue IV hydration Monitor electrolytes We will switch to basal bolus insulin accordingly Zofran for nausea vomiting #Hypertension : Amlodipine 2.5 mg p.o. daily #CODE STATUS: Full code #DVT prophylaxis: On Lovenox Attestations Medical Necessity Statement*: Patient needs to be in hospital for management of DKA/HHS. Anticipated length of stay greater than 2 midnights. Coding Level of Care Code Acute Sfdc Technical Architect for Chg Fwd Exam Detailed Diagnoses Hyperosmolar hyperglycemic state (HHS) E11.00; E11.65 DKA (diabetic ketoacidosis) E11.10 Essential hypertension I10 Diabetes E11.9 CKD (chronic kidney disease) stage 3, GFR 30-59 ml/min N18.30
[2021-03-25 23:08] VITALS: RESP 18
[2021-03-25 23:10] VITALS: PULSE 99; RESP 16; O2SAT 97
[2021-03-25 23:27] VITALS: BP 147/78; PULSE 97; RESP 16; O2SAT 99
[2021-03-25 23:46] LABS: Anion Gap 23.6 (5-19); Blood Urea Nitrogen 30 mg/dL (6-20); Calcium 8.5 mg/dL (8.5-10.5); Carbon Dioxide 18 mmol/L (22-29); Chloride 97 mmol/L (98-107); Glomerular Filtration Rate 56.7 mL/min (90-130); Glucose 395 mg/dL (65-115); Osmolality Calculated 303 mOsm/kg (285-295); Potassium 3.6 mmol/L (3.5-5.1); Sodium 135 mmol/L (136-145)
[2021-03-26] VITALS (10 sets, daily range): BP systolic 137–180; BP diastolic 78–92; PULSE 93–109; RESP 16–23; TEMP 36.8; O2SAT 97–100
[2021-03-26 00:03] LABS: Glucose Point of Care 410 mg/dL (70-110)
[2021-03-26 00:03] LABS: Glucose Point of Care 457 mg/dL (70-110)
--- NOTE | 2021-03-26 01:07 | PC.NURSE ---
Q4H BMP order placed by me per Dr. Moore's request. No other involvement in pt care.
[2021-03-26 03:02] LABS: Glucose Point of Care 239 mg/dL (70-110)
[2021-03-26 03:02] LABS: Glucose Point of Care 373 mg/dL (70-110)
[2021-03-26 03:02] LABS: Glucose Point of Care 242 mg/dL (70-110)
[2021-03-26 03:11] LABS: Basophils % 0.2 %; Hematocrit 37.2 % (42.0-52.0); Hemoglobin 12.2 g/dL (11.7-16.6); Lymphocytes # 0.7 10^3/uL (0.8-4.8); Lymphocytes % 5.8 %; Mean Corpuscular HGB Conc 32.8 g/dL (30.0-36.0); Mean Corpuscular Hemoglobin 27.4 pg (28.0-34.0); Mean Corpuscular Volume 83.4 fl (80-94); Mean Platelet Volume 11.2 fL (7.4-10.4); Monocytes # 1.2 10^3/uL (0.2-0.9); Neutrophils # 9.81 10^3/uL (1.8-7.7); Neutrophils % 83.1 %; Nucleated Red Blood Cells % 0 %; Platelet Count 71 10^3/cmm (130-400); Red Blood Count 4.46 10^6/uL (4.1-5.3); Red Cell Distribution Width 12.7 % (12.1-15.1); White Blood Count 11.8 10^3/uL (4.0-10.0)
[2021-03-26] MEDS: sodium chlor 0.9% + KCl 40 mEq 40 MEQ/1,000 ML BAG 75 MEQ IV (03:27)
[2021-03-26 03:29] LABS: Lactic Sepsis W/Reflex 2.4 mmol/L (0.5-2.2)
[2021-03-26 03:36] LABS: Alanine Aminotransferase 9 U/L (0-41); Albumin Level 3.4 g/dL (3.5-5.2); Alkaline Phosphatase 82 IU/L (40-130); Aspartate Amino Transferase 7 U/L (0-40); Blood Urea Nitrogen 30 mg/dL (6-20); Calcium 8.7 mg/dL (8.5-10.5); Carbon Dioxide 23 mmol/L (22-29); Chloride 99 mmol/L (98-107); Globulin 3.3 g/dL (1.3-4.6); Glomerular Filtration Rate 56.7 mL/min (90-130); Glucose 228 mg/dL (65-115); Magnesium 2.3 mg/dL (1.7-2.3); Osmolality Calculated 293 mOsm/kg (285-295); Sodium 135 mmol/L (136-145); Total Bilirubin 0.2 mg/dL (0.15-1.2); Total Protein 6.7 g/dL (6.6-8.7)
[2021-03-26] MEDS: acetaminophen 325 mg Tablet 650 MG PO (04:07)
[2021-03-26 04:54] LABS: Reflex Lactate Order REFLEX LACTIC ORDERD
--- NOTE | 2021-03-26 04:57 | PC.PHAR ---
pt states he hasnt taken his medications in a month or so-pt states he still has all the medications entered at home-notes are made in the pharmacy comments with dates that ext med history shows last filled-pt states he hasnt taken atorvastatin in 3 months or longer ext med history doesnt show when last filled rx written 09/23/20 ext med history shows crestor 10mg last filled 05/10/20 90d/s
[2021-03-26 05:59] LABS: Glucose Point of Care 219 mg/dL (70-110)
[2021-03-26 05:59] LABS: Glucose Point of Care 191 mg/dL (70-110)
[2021-03-26 05:59] LABS: Glucose Point of Care 202 mg/dL (70-110)
[2021-03-26 06:54] LABS: Glucose Point of Care 188 mg/dL (70-110)
[2021-03-26 07:18] LABS: Anion Gap 18.6 (5-19); Blood Urea Nitrogen 29 mg/dL (6-20); Calcium 8.5 mg/dL (8.5-10.5); Carbon Dioxide 22 mmol/L (22-29); Chloride 96 mmol/L (98-107); Glomerular Filtration Rate 62.2 mL/min (90-130); Glucose 183 mg/dL (65-115); Osmolality Calculated 285 mOsm/kg (285-295); Potassium 4.6 mmol/L (3.5-5.1); Sodium 132 mmol/L (136-145)
[2021-03-26 07:20] LABS: Lactic Acid level (Lactate) 1.4 mmol/L (0.5-2.2)
[2021-03-26] MEDS: insulin glargine 100 units/1 mL 20 UNIT SUBCUT (07:28)
--- NOTE | 2021-03-26 07:34 | PC.NURSE ---
NO change noted from report. Resting with lights off. Med given per written order. Continue to monitor
[2021-03-26 08:03] LABS: Glucose Point of Care 200 mg/dL (70-110)
[2021-03-26] MEDS: insulin lispro 100 unit/1 mL SUBCUT ×3 (08:22→17:54)
[2021-03-26] MEDS: aspirin 81 mg EC Tablet PO (08:24)
--- NOTE | 2021-03-26 08:49 | PC.NURSE ---
left heel decubitus bandage cleaned wound and changed bandage
[2021-03-26 10:03] LABS: Estmated Average Glucose 341; Hemoglobin A1C 13.5 % (4.0-6.0)
[2021-03-26] MEDS: metoclopramide 5 mg/mL SDV 2 mL 10 MG IVP ×3 (11:07→17:02)
[2021-03-26] MEDS: ondansetron 2 mg/ML SDV 2 mL 4 MG IVP ×2 (11:08→22:33)
--- NOTE | 2021-03-26 11:09 | P.PN_ITS ---
Subjective Subjective: Interval history: Patient is still experiencing nausea and emesis this morning, evaluated in the ER Vitals/I&O/Wt Last Vital Signs Temp 98.2 F 03/26/21 05:56 Pulse 97 03/26/21 08:00 Resp 16 03/26/21 08:00 BP 180/92 03/26/21 08:00 Pulse Ox 100 03/26/21 08:00 03/25/21 03/26/21 03/26/21 22:59 06:59 14:59 Intake Total 1042.921 / 1042.921 88.095 / 1131.016 Balance 1042.921 / 1042.921 88.095 / 1131.016 Weight last 48 hrs Weight 102.058 kg Physical Exam Narrative: EXAM NARRATIVE: Patient sitting in his bed actively vomiting Blood pressure stable Clinically mild signs of dehydration However 1+ pitting edema of bilateral lower extremities Charcot foot S1, S2 sinus tachycardia Abdomen distended, nontender EOMI, PERRLA Nonfocal neuro exam Saturating well on 2 L Data : 03/26/21 03:00 03/26/21 06:51 A&P Assessment and plan (1) Hyperosmolar hyperglycemic state (HHS): Status: Acute (2) CKD (chronic kidney disease) stage 3, GFR 30-59 ml/min: Status: Acute (3) Diabetes: Status: Acute (4) Essential hypertension: Status: Acute Additional A&P Information Anion gap is closed, as soon as he ate his breakfast he started vomiting again He seems to have diabetic gastroparesis Check A1c level Start Lantus I will keep him on IV fluids for now, I will continue normal saline at 75 mm/h Use Reglan and Zofran alternatively Patient has not been using his Lantus because of his noncompliance Would use bland diet Full code DVT prophylaxis on board Attestations Medical Necessity Statement*: Discharge tomorrow if clinically stable Time Spent in Patient Care: less than 15 minutes Coding Level of Care Code Acute Multiple Effect Evaporator Operator for Chg Fwd Diagnoses Hyperosmolar hyperglycemic state (HHS) E11.00; E11.65 CKD (chronic kidney disease) stage 3, GFR 30-59 ml/min N18.30 Diabetes E11.9 Essential hypertension I10
[2021-03-26 11:21] LABS: Glucose Point of Care 237 mg/dL (70-110)
[2021-03-26 11:49] LABS: Anion Gap 19.3 (5-19); Blood Urea Nitrogen 28 mg/dL (6-20); Calcium 9.2 mg/dL (8.5-10.5); Carbon Dioxide 21 mmol/L (22-29); Chloride 97 mmol/L (98-107); Glomerular Filtration Rate 68.8 mL/min (90-130); Glucose 240 mg/dL (65-115); Osmolality Calculated 289 mOsm/kg (285-295); Potassium 4.3 mmol/L (3.5-5.1); Sodium 133 mmol/L (136-145)
--- NOTE | 2021-03-26 11:56 | CT_ITS ---
WS: [id number] CT LEFT FOOT NONCONTRAST. HISTORY: diabetic ulcer Technique: All CT scans at [facility] use at least one of these dose optimization techniques: automated exposure control; mA and/or kV adjustment per patient size (includes targeted exams where dose is matched to clinical indication); or iterative reconstruction. DLP: 156.33 mGy.cm COMPARISON: 06/19/2019 and foot radiograph 02/26/2021 There is a large amount of air infiltrating through the soft tissues of the LEFT foot and ankle. Ther e is a soft tissue ulcer tract filled with air measuring 18 mm just lateral to the proximal fifth met atarsal. This may be the site of the air if there has been recent debridement. Otherwise possibility of a necrotizing fasciitis should be considered due to the extensive distribution of air. There is al so an extensive amount of soft tissue edema surrounding the ankle and foot. Large amount of celluliti s. No focal collection identified on this unenhanced examination. Significant abnormality involving the peroneal tendon sheath. There is fluid and air and synovial thi ckening throughout the peritoneal tendon sheath. The most significant thickening is at the level dist al to the fibula. There is also some increased density along the tendon sheath which may indicate hem orrhage or infection. Again noted is irregularity of the proximal fifth metatarsal which may be from old nonunited fracture or osteomyelitis. Additional degenerative changes at the ankle joint. CT/CT foot LT wo con* [id number] IMPRESSION: 1. There is extensive air throughout the soft tissues of the foot and ankle. I f there has been recent debridement this could be air placed during a debrideme nt. Otherwise necrotizing fasciitis should be considered. 2. There is a large amount of soft tissue edema and cellulitis surrounding the ankle and foot. 3. Soft tissue ulceration tract is filled with air and begins lateral to the f ifth proximal metatarsal and extends to the bone. 4. Marked synovial thickening with fluid and tenosynovitis of the peroneal ten don sheath which also contains air. Infection or injection into the peritoneal tendon sheath should be considered as possible etiologies.
[2021-03-26] MEDS: sodium chloride 0.9% 1,000 ML 75 ML IV (12:41)
[2021-03-26] MEDS: piperacillin-tazobactam 3.375 GM in sodium chloride 0.9% (plus) 50 ML IV ×2 (12:41→22:24)
[2021-03-26] MEDS: HYDROmorphone 1 mg/mL INJ 1 mL 0.5 MG IVP ×3 (12:49→22:54)
[2021-03-26 15:39] LABS: Blood Urea Nitrogen 27 mg/dL (6-20); Calcium 8.3 mg/dL (8.5-10.5); Carbon Dioxide 20 mmol/L (22-29); Chloride 97 mmol/L (98-107); Glomerular Filtration Rate 76.7 mL/min (90-130); Glucose 226 mg/dL (65-115); Osmolality Calculated 286 mOsm/kg (285-295); Sodium 132 mmol/L (136-145)
[2021-03-26 15:40] LABS: Anion Gap 19.9 (5-19); Potassium 4.9 mmol/L (3.5-5.1)
[2021-03-26 16:30] LABS: Glucose Point of Care 244 mg/dL (70-110)
[2021-03-26] MEDS: vancomycin 1,250 MG/250 ML PIGGYBACK 200 MG IV (17:40)
[2021-03-26 17:51] LABS: Glucose Point of Care 315 mg/dL (70-110)
[2021-03-26 19:14] LABS: Anion Gap 21.4 (5-19); Blood Urea Nitrogen 26 mg/dL (6-20); Calcium 8.6 mg/dL (8.5-10.5); Carbon Dioxide 19 mmol/L (22-29); Chloride 96 mmol/L (98-107); Glomerular Filtration Rate 76.7 mL/min (90-130); Glucose 269 mg/dL (65-115); Osmolality Calculated 288 mOsm/kg (285-295); Potassium 4.4 mmol/L (3.5-5.1); Sodium 132 mmol/L (136-145)
[2021-03-26] MEDS: insulin glargine 100 units/1 mL 25 UNIT SUBCUT (20:47)
[2021-03-26 20:56] LABS: Glucose Point of Care 217 mg/dL (70-110)
[2021-03-26] MEDS: atorvastatin 40 mg Tablet 20 MG PO (22:23)
[2021-03-26 23:25] LABS: Anion Gap 17.5 (5-19); Blood Urea Nitrogen 25 mg/dL (6-20); Calcium 8.7 mg/dL (8.5-10.5); Carbon Dioxide 23 mmol/L (22-29); Chloride 97 mmol/L (98-107); Glomerular Filtration Rate 76.7 mL/min (90-130); Glucose 201 mg/dL (65-115); Osmolality Calculated 286 mOsm/kg (285-295); Potassium 4.5 mmol/L (3.5-5.1); Sodium 133 mmol/L (136-145)
[2021-03-27] VITALS (8 sets, daily range): PULSE 103–111; RESP 12–24; O2SAT 93–97
[2021-03-27] MEDS: vancomycin 1,250 MG/250 ML PIGGYBACK 200 MG IV ×2 (01:22→14:14)
[2021-03-27] MEDS: metoclopramide 5 mg/mL SDV 2 mL 10 MG IVP ×2 (02:05→16:39)
[2021-03-27] MEDS: HYDROmorphone 1 mg/mL INJ 1 mL 0.5 MG IVP ×5 (02:41→22:24)
[2021-03-27 03:41] LABS: Basophils % 0.2 %; Hematocrit 36.7 % (42.0-52.0); Hemoglobin 11.5 g/dL (11.7-16.6); Lymphocytes # 0.4 10^3/uL (0.8-4.8); Lymphocytes % 3.9 %; Mean Corpuscular HGB Conc 31.3 g/dL (30.0-36.0); Mean Corpuscular Hemoglobin 26.6 pg (28.0-34.0); Mean Corpuscular Volume 84.8 fl (80-94); Mean Platelet Volume 11.3 fL (7.4-10.4); Monocytes # 0.9 10^3/uL (0.2-0.9); Monocytes % 10.1 %; Neutrophils % 84.5 %; Nucleated Red Blood Cells % 0 %; Platelet Count 54 10^3/cmm (130-400); Red Blood Count 4.33 10^6/uL (4.1-5.3); Red Cell Distribution Width 13.1 % (12.1-15.1); White Blood Count 9.3 10^3/uL (4.0-10.0)
[2021-03-27 04:03] LABS: Alanine Aminotransferase 6 U/L (0-41); Albumin Level 2.6 g/dL (3.5-5.2); Alkaline Phosphatase 70 IU/L (40-130); Anion Gap 18.3 (5-19); Aspartate Amino Transferase 8 U/L (0-40); Blood Urea Nitrogen 27 mg/dL (6-20); Carbon Dioxide 19 mmol/L (22-29); Chloride 97 mmol/L (98-107); Globulin 3.7 g/dL (1.3-4.6); Glomerular Filtration Rate 68.8 mL/min (90-130); Glucose 221 mg/dL (65-115); Osmolality Calculated 282 mOsm/kg (285-295); Potassium 4.3 mmol/L (3.5-5.1); Sodium 130 mmol/L (136-145); Total Bilirubin 0.3 mg/dL (0.15-1.2); Total Protein 6.3 g/dL (6.6-8.7)
[2021-03-27 04:17] LABS: Magnesium 2.2 mg/dL (1.7-2.3)
[2021-03-27] MEDS: piperacillin-tazobactam 3.375 GM in sodium chloride 0.9% (plus) 50 ML IV ×3 (05:01→21:09)
[2021-03-27] MEDS: sodium chloride 0.9% 1,000 ML 75 ML IV ×2 (05:02→17:18)
[2021-03-27 07:39] LABS: Glucose Point of Care 245 mg/dL (70-110)
[2021-03-27] MEDS: ondansetron 2 mg/ML SDV 2 mL 4 MG IVP (07:58)
[2021-03-27] MEDS: insulin lispro 100 unit/1 mL SUBCUT ×3 (07:58→17:39)
[2021-03-27] MEDS: aspirin 81 mg EC Tablet PO (07:58)
[2021-03-27] MEDS: insulin glargine 100 units/1 mL 25 UNIT SUBCUT ×2 (08:52→17:33)
--- NOTE | 2021-03-27 09:18 | PM.PN ---
Subjective Subjective: Interval history: Patient remained afebrile No leukocytosis Hyperemia of left foot seems to be improving, Diarrhea and emesis improved He was kept n.p.o. in case Dr. Limon will plan for any debridement Hyperglycemia, Vitals/I&O/Wt Last Vital Signs Temp 98.2 F 03/26/21 05:56 Pulse 111 H 03/27/21 06:00 Resp 19 H 03/27/21 07:59 BP 180/92 03/26/21 08:00 Pulse Ox 93 03/27/21 07:59 03/26/21 03/27/21 03/27/21 22:59 06:59 14:59 Intake Total 300 / 300 1300 / 1600 Output Total 900 / 900 Balance 300 / 300 400 / 700 Weight last 48 hrs Weight 102.058 kg Physical Exam Narrative: EXAM NARRATIVE: Patient resting comfortably in his bed Saturating well on room air Abdomen soft Bilateral breast without adventitious rhonchi or crackles Left foot swelling seems to be improving Hyperemia improving as well, Diabetic foot ulcer with skin maceration and sloughing, no active signs of healing Debridement on 03/19/[address] Vidal at wound care clinic Patient has sensations intact in his feet Appears comfortable Data : 03/27/21 03:18 03/27/21 03:18 A&P Assessment and plan (1) Hyperosmolar hyperglycemic state (HHS): Status: Acute (2) CKD (chronic kidney disease) stage 3, GFR 30-59 ml/min: Status: Acute (3) Diabetes: Status: Acute (4) Essential hypertension: Status: Acute (5) Diabetic foot infection: Status: Acute Additional A&P Information Hyperosmolar hyperglycemia: Improving no sign of DKA Sinus tachycardia, Will give 1 L bolus to see if he is fluid responsive clinical looks dehydrated had multiple episodes of emesis and dehydration secondary to diarrhea Acute hypoxia this morning I will discontinue his oxygen he was saturating 98% on room air Will get D-dimer Left foot diabetic ulcer Multiple air pockets evident on CT foot, recent debridement done by Dr. Vidal 03/19/2021, no active signs of necrotizing fasciitis, no crepitation, redness is not worsening, he is afebrile, no leukocytosis, continue vancomycin and Zosyn Patient does follow-up with wound care clinic on weekly basis Requested arterial Doppler Will follow-up with Dr. Limon's recommendation Advance diet if no plan for debridement Hypertension: Optimize the dose of lisinopril he takes 10 mg at home Full code Continue medical management, monitor him for at least next 48 hours Consistent carb diet once Dr. Limon has evaluated him today Low albumin, normal blood pressure Patient is not vaccinated for COVID-19, Attestations Medical Necessity Statement*: Continue medical management Time Spent in Patient Care: 16 - 35 minutes Coding Level of Care Code Acute Novelty Twister Operator for Chg Fwd Diagnoses Hyperosmolar hyperglycemic state (HHS) E11.00; E11.65 CKD (chronic kidney disease) stage 3, GFR 30-59 ml/min N18.30 Diabetes E11.9 Essential hypertension I10 Diabetic foot infection E11.628; L08.9
[2021-03-27] MEDS: lactated ringers 1,000 ML 999 ML IV (10:03)
[2021-03-27] MEDS: lisinopril 20 mg Tablet PO (10:03)
--- NOTE | 2021-03-27 10:25 | PC.NURSE ---
Fluid order clarified via Volte message to Dr. Metzger. Ordered to discontinue lactated ringers and bolus sodium chloride.
[2021-03-27 11:33] LABS: Glucose Point of Care 207 mg/dL (70-110)
--- NOTE | 2021-03-27 12:58 | P.CONIM_ITS ---
Providers/Reason For Consult Consulting Physician/Specialty*: General Surgery Dr. Limon Reason for Consult*: Left foot wound Attending Physician: Woodrow Metzger MD Primary Care Provider: MARK Kilpatrick History of Present Illness History of Present Illness Martir Kruger is a 56 year old male who who is a type II diabetic who presented to the ER with intractable nausea and vomiting and was noted to be in DKA and admitted to the ICU for further management. Patient also has a left foot ulcer that he has had for over 2 years which is being cared for by Dr. Vidal at the wound care clinic. Patient states that his left foot is slightly more painful but denies any fevers or chills. He had a CT in the ER which showed air around the left foot concerning for nec fascitiis though he had a debridement by Dr. Vidal on 03/19/2021. Review of Systems General: Reports: 10 or more systems reviewed and unremarkable except in HPI and below Medications/Allergies Home Medications Medication Instructions Recorded Confirmed Last Taken Type aspirin 81 mg tablet,delayed 81 mg PO DAILY 06/16/19 03/26/21 09/21/20 History release flash glucose sensor #1 ea 08/21/20 03/26/21 Unknown Rx Byetta 10 mcg SUBCUT DAILY 09/21/20 03/26/21 09/21/20 History albuterol sulfate 1 inh INHALATION QID PRN #8.5 g 09/23/20 03/26/21 Unknown Rx empagliflozin [Jardiance] 10 mg PO DAILY 03/26/21 03/26/21 Unknown History insulin detemir U-100 [Levemir 25 unit SUBCUT BID 03/26/21 03/26/21 Unknown History FlexTouch U-100 Insuln] insulin lispro [Humalog KwikPen See Rx Instructions .ROUTE .COMPLEX 03/26/21 03/26/21 Unknown History Insulin] lisinopril 10 mg PO DAILY 03/26/21 03/26/21 Unknown History Allergies Allergy/AdvReac Type Severity Reaction Status Date / Time No Known Allergies Allergy Verified 03/26/21 04:57 Current Medications Generic Name Dose Route Start Last Admin Trade Name Freq PRN Reason Stop Dose Admin Acetaminophen 650 mg 03/25/21 22:42 03/26/21 04:07 Acetaminophen 325 Mg Tablet PO 650 mg Q6H PRN Administration Mild/Mod Pain Or Temp >/= 101 Aspirin 81 mg 03/26/21 09:00 03/27/21 07:58 Aspirin 81 Mg Ec Tablet PO 81 mg DAILY MANUELA Administration Atorvastatin Calcium 20 mg 03/26/21 21:00 03/26/21 22:23 Atorvastatin 40 Mg Tablet PO 20 mg BEDTIME MANUELA Administration Hydromorphone HCl 0.5 mg 03/26/21 12:00 03/27/21 07:59 Hydromorphone 1 Mg/Ml Inj 1 Ml IVP 0.5 mg Q4H PRN Administration pain Sodium Chloride 1,000 mls @ 75 mls/hr 03/26/21 11:30 03/27/21 05:02 Sodium Chloride 0.9% IV 75 mls/hr .[id number] MANUELA Administration Piperacillin Sod/Tazobactam 50 mls @ 12.5 mls/hr 03/26/21 12:30 03/27/21 10:57 Sod 3.375 gm/ Sodium Chloride IV Infused Q8H MANUELA Infusion Protocol Vancomycin/PEG/NADA/Lysine/Water 1,250 mg in 250 mls @ 200 mls/hr 03/26/21 14:00 03/27/21 05:21 Vancocin IV Infused Q12H MANUELA Infusion Insulin Glargine 25 unit 03/26/21 18:00 03/27/21 08:52 Insulin Glargine 100 Units/1 Ml SUBCUT 25 unit BID MANUELA Administration Insulin Human Lispro 0 unit 03/26/21 08:00 03/27/21 07:58 Insulin Lispro 100 Unit/1 Ml SUBCUT 8 unit TIDWM MANUELA Administration Protocol Lisinopril 20 mg 03/27/21 09:25 03/27/21 10:03 Lisinopril 20 Mg Tablet PO 20 mg DAILY MANUELA Administration Metoclopramide HCl 10 mg 03/26/21 09:57 03/27/21 02:05 Metoclopramide 5 Mg/Ml Sdv 2 Ml IVP 10 mg Q6H PRN Administration NAUSEA AND VOMITING Ondansetron HCl 4 mg 03/25/21 22:42 03/27/21 07:58 Ondansetron 2 Mg/Ml Sdv 2 Ml IVP 4 mg Q8H PRN Administration vomiting, or N/V if npo PFSH Acute PFSH: Medical History Acquired rearfoot varus Chronic renal impairment 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 Diabetes type 2, uncontrolled Diabetic peripheral neuropathy associated with type 2 diabetes mellitus Essential hypertension Foot abscess, left Hyperlipidemia associated with type 2 diabetes mellitus Hyperlipidemia, mixed Statin intolerance Surgical History Amputated toe of right foot secondary to osteomyelitis 4th right toe History of amputation of lesser toe History of partial amputation of toe of right foot Family History Father Diabetes Mother Diabetes Other Hypertension Social History Smoking and tobacco status: never smoked Second hand smoke exposure: No Smoking risk assessment/counseling performed?: No Alcohol intake: former Desire information about alcohol rehabilitation?: No Counseling given: No Desire information about substance/drug rehabilitation?: No Counseling given: No Adopted: No Caregiver/support person: No Lives independently: Yes Household members: spouse Housing: House Marital status: service: No Current occupational status: employed Pets and animals: Yes History of recent travel: No Current gender identity: Male Vitals/I&O/Wt Last Vital Signs Temp 98.2 F 03/26/21 05:56 Pulse 111 H 03/27/21 06:00 Resp 19 H 03/27/21 07:59 BP 180/92 03/26/21 08:00 Pulse Ox 93 03/27/21 07:59 03/26/21 03/27/21 03/27/21 22:59 06:59 14:59 Intake Total 300 / 1600 1300 / 1600 50 / 50 Output Total 900 / 900 Balance 300 / 700 400 / 700 50 / 50 Weight last 48 hrs Weight 225 lb Physical Exam Narrative: EXAM NARRATIVE: HEENT: Normocephalic Eye: Sclera /conjunctiva normal Abdomen: Soft to palpation Neurological: Oriented to place person and time Skin: Intact, 3 x 3 cm ulcer on the plantar aspect of the left foot, minimal erythema, no significant pedal edema A&P Assessment and plan (1) Diabetic foot infection: This is a 56-year-old male with type II diabetic admitted with DKA who also has left foot ulcer which is being cared for by Dr. Vidal at the wound care clinic. On exam there is edema of the left foot with minimal necrotic tissue tissue and cellulitis appears to be improved on IV antibiotics. There is a foul-smelling drainage from the wound WBC is down from 12.[address] showed extensive air throughout the soft tissue of the foot and ankle along with edema and marked synovitis thickening and tenosynovitis patient Patient is afebrile, hemodynamically stable, erythema is improved and the wound has minimal necrotic tissue. We will therefore continue with wet-to-dry 3 times a day and IV antibiotics. At this point I could not find enough justification to take him to surgery for debridement, we will continue to monitor him closely and he could need debridement during this hospitalization Status: Acute Consult Attestations Medical Necessity Statement: As per attending physician Coding Level of Care Code Acute Switchboard Troubleshooter for Paula Ho Diagnoses Diabetic foot infection E11.628; L08.9
[2021-03-27 17:24] LABS: Glucose Point of Care 209 mg/dL (70-110)
--- NOTE | 2021-03-27 18:22 | USCV_ITS ---
Martir Kruger Age: 56 Gender: M : 1965 Exam Date: 03/27/2021 07:18 Ordering Phys: Woodrow Metzger MD Technologist: [place] [facility] [place] FOOT ULCERS Risk Factors: DIABETIC Previous Vascular Surgery: RIGHT LEFT BP: 150.0 / 76.00 BP: / 0 Waveform Velocity (cm/s) Velocity (cm/s) Waveform Iliac Prox 83.0 Triphasic Iliac Mid 89.0 Triphasic Iliac Distal Triphasic 87.0 LOGISTICS ENGINEER 60.0 Triphasic SFA Prox 70.0 Triphasic SFA Mid 105.0 Triphasic SFA Dist 128.0 Triphasic POP 114.0 Triphasic PHYSICAL DIRECTOR 100.0 Biphasic DPA 82.0 Triphasic MONAE 0.6 FINDINGS Abnormal resting MONAE of 0.6 on the left side No significant plaques in the iliac or femoral arteries. ADDENDUM the left atrial pressure was found to be 25 mmHg. The pressure was 136 mmHg. The TBI on the left side was 0.18 CONCLUSIONS Abnormal resting MONAE on the left side, suggesting moderate peripheral artery disease Near normal arterial Doppler waveforms in the infrapopliteal vessels, may suggest distal disease Consider doing a TBI to evaluate the distal artery ADDENDUM abnormal TBI 0.18 suggesting severe arterial disease possibly involving the distal segments of the infrapopliteal vessels on the left side. Dr. Metzger was informed about these findings Dr Leslie Hair MD [facility] (Electronically Signed) Final Date: 28 March 2021 10:04 Amended: 28 March 2021 10:18 C
[2021-03-27] MEDS: enoxaparin 40 mg/0.4 mL Syringe SUBCUT (21:10)
[2021-03-27] MEDS: atorvastatin 40 mg Tablet 20 MG PO (21:10)
[2021-03-27 22:48] LABS: Add Urine Microscopic? YES; Bacteria Urine 1+ /hpf; Bilirubin Urine Neg (Negative); Blood Urine 3+ (Negative); Glucose Urine UA 4+ (Normal); Ketones Urine 1+ (Negative); Leukocyte Esterase Urine Negative (Negative); Nitrate Urine Negative (Negative); Protein Urine 3+ (Negative); RBC Urine 50-80 /hpf (0-2); Specific Gravity, Urine 1.025 (1.005-1.030); Squamous Epithelial Cell Urine 0-4 /hpf (0-5); Urine Appearance Clear (CLEAR); Urine Color Yellow (Yellow); Urobilinogen Urine Norm (Negative); WBC Urine 0-4 /hpf (0-5); pH Urine 5 (5-7)
[2021-03-27 22:49] LABS: Add Urine Culture? Yes; Amorphous Sediment Urine 1+ /hpf; Coarse Granular Casts Urine 0-4 /lpf
[2021-03-28] VITALS (56 sets, daily range): BP systolic 101–156; BP diastolic 48–101; PULSE 94–127; RESP 10–28; TEMP 36.7–37; O2SAT 92–99
[2021-03-28] MEDS: vancomycin 1,250 MG/250 ML PIGGYBACK 200 MG IV (02:48)
[2021-03-28 04:12] LABS: Alanine Aminotransferase 7 U/L (0-41); Albumin Level 2.6 g/dL (3.5-5.2); Alkaline Phosphatase 80 IU/L (40-130); Anion Gap 16.6 (5-19); Aspartate Amino Transferase 11 U/L (0-40); Blood Urea Nitrogen 35 mg/dL (6-20); Calcium 8.2 mg/dL (8.5-10.5); Carbon Dioxide 20 mmol/L (22-29); Chloride 95 mmol/L (98-107); Globulin 3.2 g/dL (1.3-4.6); Glomerular Filtration Rate 44.6 mL/min (90-130); Glucose 136 mg/dL (65-115); Osmolality Calculated 276 mOsm/kg (285-295); Potassium 3.6 mmol/L (3.5-5.1); Sodium 128 mmol/L (136-145); Total Bilirubin 0.4 mg/dL (0.15-1.2); Total Protein 5.8 g/dL (6.6-8.7)
[2021-03-28] MEDS: piperacillin-tazobactam 3.375 GM in sodium chloride 0.9% (plus) 50 ML IV ×2 (04:47→17:55)
[2021-03-28] MEDS: HYDROmorphone 1 mg/mL INJ 1 mL 0.5 MG IVP ×2 (05:38→23:13)
--- NOTE | 2021-03-28 07:12 | USCV_ITS ---
Martir Kruger Age: 56 Gender: M : 1965 Exam Date: 03/28/2021 08:52 Ordering Phys: Woodrow Metzger MD Technologist: ISAIAS [place] [facility] [place]: [place] PROCEDURES: Venous duplex imaging was performed in bilateral lower extremities. The following venous structures were evaluated: common femoral vein, profunda vein, proximal portion of the greater saphenous vein, superficial femoral vein, and the popliteal vein. In addition, the posterior tibial and peroneal trunk were evaluated. Serial compression, augmentation maneuvers, and spectral Doppler flow evaluation were performed. FINDINGS: Normal 2-D Doppler and augmentation and compressibility throughout the lower extremity venous structures. Additional imaging through the proximal calf veins also reveals no thrombus. Limited evaluation of the greater saphenous vein is patent with no thrombus. Lymph nodes in the left inguinal region are abnormal. CONCLUSIONS No DVT bilateral lower extremities. Abnormal left inguinal lymph node, likley reactive. Dr. Inez Gordon DO (Electronically Signed) Final Date: 28 March 2021 13:24 S
[2021-03-28] MEDS: lisinopril 20 mg Tablet PO (07:53)
[2021-03-28] MEDS: insulin glargine 100 units/1 mL 25 UNIT SUBCUT ×2 (07:53→17:03)
[2021-03-28] MEDS: aspirin 81 mg EC Tablet PO (07:53)
[2021-03-28] MEDS: insulin lispro 100 unit/1 mL SUBCUT ×2 (07:53→17:03)
[2021-03-28] MEDS: sodium chloride 0.9% 1,000 ML 75 ML IV (07:54)
[2021-03-28 08:00] LABS: Glucose Point of Care 182 mg/dL (70-110)
[2021-03-28 08:09] LABS: Basophils % 0.3 %; Hematocrit 34.8 % (42.0-52.0); Lymphocytes # 0.8 10^3/uL (0.8-4.8); Mean Corpuscular HGB Conc 31.6 g/dL (30.0-36.0); Mean Corpuscular Hemoglobin 26.9 pg (28.0-34.0); Mean Corpuscular Volume 85.1 fl (80-94); Mean Platelet Volume 11.6 fL (7.4-10.4); Monocytes # 0.7 10^3/uL (0.2-0.9); Monocytes % 6.8 %; Neutrophils # 8.53 10^3/uL (1.8-7.7); Neutrophils % 84.2 %; Nucleated Red Blood Cells % 0 %; Platelet Count 161 10^3/cmm (130-400); Red Blood Count 4.09 10^6/uL (4.1-5.3); Red Cell Distribution Width 13.3 % (12.1-15.1); White Blood Count 10.1 10^3/uL (4.0-10.0)
--- NOTE | 2021-03-28 10:16 | P.PN_ITS ---
Subjective Subjective: Interval history: Abnormal MONAE and TBI, will request CT aorta with runoff as he has nonhealing wound of left foot He will not be discharged today Vitals/I&O/Wt Last Vital Signs Temp 98.2 F 03/26/21 05:56 Pulse 110 H 03/28/21 05:44 Resp 22 H 03/28/21 05:38 BP 180/92 03/26/21 08:00 Pulse Ox 97 03/27/21 16:52 03/27/21 03/28/21 03/28/21 22:59 06:59 14:59 Intake Total 1700 / 1750 1050 / 2800 300 / 300 Output Total 550 / 550 Balance 1150 / 1200 1050 / 2250 300 / 300 Physical Exam Narrative: EXAM NARRATIVE: Patient resting comfortably No emesis since yesterday Euvolemic Discontinue IV fluids Saturating well on room air Edema of left leg Abdomen soft Bowel sound present Passing flatus No acute respite distress S1, S2 Data : 03/28/21 07:45 03/28/21 03:33 A&P Assessment and plan (1) Hyperosmolar hyperglycemic state (HHS): Status: Acute (2) Diabetic foot infection: Status: Acute (3) Essential hypertension: Status: Acute (4) Diabetes: Status: Acute (5) Peripheral arterial disease: Status: Acute Additional A&P Information Hyperosmolar hyperglycemia: Resolved Noncompliance with insulin Nonhealing diabetic foot ulcer abnormal MONAE, Will request CTA aorta with runoff Hypertension: Optimize antihypertensive regimen: DC IV fluids today Peripheral arterial disease he will need aspirin, statin and risk factor modifications for distal peripheral arterial disease He does follow-up with wound care clinic weekly basis Consistent carb diet High-dose sliding scale Lantus 25 twice daily DVT prophylaxis: Lovenox Attestations Medical Necessity Statement*: Anticipating discharge tomorrow Time Spent in Patient Care: 16 - 35 minutes Coding Level of Care Code Acute Grinding And Spraying Supervisor for Chg Fwd Diagnoses Hyperosmolar hyperglycemic state (HHS) E11.00; E11.65 Diabetic foot infection E11.628; L08.9 Essential hypertension I10 Diabetes E11.9 Peripheral arterial disease I73.9
[2021-03-28 10:52] LABS: Glucose Point of Care 91 mg/dL (70-110)
[2021-03-28] MEDS: heparin 5,000 unit/mL INJ 1 mL 5000 UNIT SUBCUT ×2 (10:57→17:29)
[2021-03-28] MEDS: acetaminophen 325 mg Tablet 650 MG PO ×2 (10:57→20:33)
[2021-03-28 11:20] LABS: Anion Gap 18.6 (5-19); Blood Urea Nitrogen 38 mg/dL (6-20); Calcium 7.8 mg/dL (8.5-10.5); Carbon Dioxide 18 mmol/L (22-29); Chloride 96 mmol/L (98-107); Glomerular Filtration Rate 44.6 mL/min (90-130); Glucose 92 mg/dL (65-115); Osmolality Calculated 277 mOsm/kg (285-295); Potassium 3.6 mmol/L (3.5-5.1); Sodium 129 mmol/L (136-145)
--- NOTE | 2021-03-28 12:26 | P.PN_ITS ---
Subjective Subjective: Interval history: Patient is doing a lot better, no fevers or chills, continues to follow smelling drainage from the wound Vitals/I&O/Wt Last Vital Signs Temp 98.2 F 03/26/21 05:56 Pulse 110 H 03/28/21 05:44 Resp 22 H 03/28/21 05:38 BP 180/92 03/26/21 08:00 Pulse Ox 97 03/27/21 16:52 03/27/21 03/28/21 03/28/21 22:59 06:59 14:59 Intake Total 1700 / 3050 1050 / 3050 582.5 / 582.5 Output Total 550 / 550 200 / 200 Balance 1150 / 2500 1050 / 2500 382.5 / 382.5 Physical Exam 2 Narrative: EXAM NARRATIVE: Left foot: Slightly warm to touch, minimal erythema, significant pedal edema. Wound itself has granulation tissue with no significant purulent drainage Data : 03/28/21 07:45 03/28/21 10:40 A&P Assessment and plan (1) Diabetic foot infection: This is a 56-year-old male with type II diabetic admitted with DKA who also has left foot ulcer which is being cared for by Dr. Vidal at the wound care clinic. On exam, the erythema is improved, wound does not look bad but he still has foul-smelling drainage. Overall the patient looks better and is tolerating a diet. WBC is10.[address] showed extensive air throughout the soft tissue of the foot and ankle along with edema and marked synovial thickening and tenosynovitis Patient is afebrile, hemodynamically stable, erythema is improved and the wound has minimal necrotic tissue. We will therefore continue with wet-to-dry 3 times a day and IV antibiotics. Apply warm compress Due to CT scan findings and the purulent drainage I am still concerned about his foot and therefore he needs to remain on IV antibiotics with broad-spectrum coverage since diabetic foot ulcers are typically polymicrobial. Transfer to floor Status: Acute Attestations Medical Necessity Statement*: As per primary Coding Level of Care Code Acute Palliative Care Coordinator for [facility] [place] Diagnoses Diabetic foot infection E11.628; L08.9
[2021-03-28 13:09] LABS: Vancomycin Trough 21.8 ug/mL (10-15)
[2021-03-28 16:37] LABS: Glucose Point of Care 167 mg/dL (70-110)
[2021-03-28] MEDS: sodium chloride 0.9% 1,000 ML 100 ML IV ×2 (17:03→21:40)
[2021-03-28] MEDS: vancomycin 1,500 MG/300 ML PIGGYBACK 200 MG IV (19:51)
[2021-03-28] MEDS: atorvastatin 40 mg Tablet 20 MG PO (20:30)
--- NOTE | 2021-03-28 23:19 | PC.NURSE ---
C/O sever R hip pain, shivering and being cold. Oral temp 98.1, right after administering PRN Dilaudid reported feeling a little better
[2021-03-29] VITALS (13 sets, daily range): BP systolic 99–173; BP diastolic 63–92; PULSE 61–114; RESP 15–25; TEMP 36.6–37.2; O2SAT 97–100
[2021-03-29] MEDS: piperacillin-tazobactam 3.375 GM in sodium chloride 0.9% (plus) 50 ML IV (01:24)
[2021-03-29] MEDS: heparin 5,000 unit/mL INJ 1 mL 5000 UNIT SUBCUT ×3 (02:06→18:29)
[2021-03-29 04:12] LABS: Basophils % 0.3 %; Hematocrit 38.2 % (42.0-52.0); Hemoglobin 11.8 g/dL (11.7-16.6); Lymphocytes # 0.9 10^3/uL (0.8-4.8); Lymphocytes % 8.4 %; Mean Corpuscular HGB Conc 30.9 g/dL (30.0-36.0); Mean Corpuscular Hemoglobin 26.6 pg (28.0-34.0); Mean Platelet Volume 13.1 fL (7.4-10.4); Monocytes # 0.7 10^3/uL (0.2-0.9); Monocytes % 6.8 %; Neutrophils # 8.43 10^3/uL (1.8-7.7); Neutrophils % 81.8 %; Nucleated Red Blood Cells % 0 %; Platelet Count 90 10^3/cmm (130-400); Red Blood Count 4.44 10^6/uL (4.1-5.3); Red Cell Distribution Width 13.4 % (12.1-15.1); White Blood Count 10.3 10^3/uL (4.0-10.0)
[2021-03-29 04:24] LABS: Anion Gap 20.5 (5-19); Blood Urea Nitrogen 42 mg/dL (6-20); Calcium 8.8 mg/dL (8.5-10.5); Carbon Dioxide 18 mmol/L (22-29); Chloride 97 mmol/L (98-107); Glomerular Filtration Rate 38.9 mL/min (90-130); Glucose 85 mg/dL (65-115); Osmolality Calculated 284 mOsm/kg (285-295); Potassium 3.5 mmol/L (3.5-5.1); Sodium 132 mmol/L (136-145)
[2021-03-29 07:34] LABS: Glucose Point of Care 88 mg/dL (70-110)
[2021-03-29] MEDS: linezolid premix 600 MG/300 ML PREMIX 300 MG IV ×2 (08:05→18:29)
[2021-03-29] MEDS: aspirin 81 mg EC Tablet PO (08:07)
[2021-03-29] MEDS: metroNIDAZOLE 500 MG Tablet PO (08:07)
[2021-03-29] MEDS: insulin glargine 100 units/1 mL 25 UNIT SUBCUT ×2 (08:07→18:29)
--- NOTE | 2021-03-29 08:39 | PM.PN ---
Subjective Subjective: Interval history: patient feels better, no nausea or vomiting , states left foot pain is improved Vitals/I&O/Wt Last Vital Signs Temp 98.3 F 03/29/21 08:11 Pulse 109 H 03/29/21 08:11 Resp 15 03/29/21 08:11 BP 167/88 03/29/21 08:11 Pulse Ox 97 03/29/21 08:11 03/28/21 03/29/21 03/29/21 22:59 06:59 14:59 Intake Total 631.667 / 1924.167 470 / 1924.167 Output Total 200 / 875 Balance 431.667 / 1049.167 470 / 1049.167 Physical Exam Narrative: EXAM NARRATIVE: Left foot: Slightly warm to touch, erythema is improved, significant pedal edema. Wound itself has granulation tissue with no significant purulent drainage Data : 03/29/21 03:17 03/29/21 03:17 A&P Assessment and plan (1) Diabetic foot infection: This is a 56-year-old male with type II diabetic admitted with DKA who also has left foot ulcer which is being cared for by Dr. Vidal at the wound care clinic. On exam there is edema of the left foot with minimal necrotic tissue tissue and cellulitis appears to be improved on IV antibiotics. Still has some drainage though not as foul smelling WBC is 10.[address] showed extensive air throughout the soft tissue of the foot and ankle along with edema and marked synovitis thickening and tenosynovitis . Patient has PVD but cannot get IV contrast due to Cr of 1.8 Patient is afebrile, hemodynamically stable, erythema is improved and the wound has minimal necrotic tissue. We will therefore continue with wet-to-dry 3 times a day and IV antibiotics. Status: Acute Attestations Medical Necessity Statement*: As per primary Coding Level of Care Code Acute Wild Life Photographer for [facility] Diagnoses Diabetic foot infection E11.628; L08.9
[2021-03-29] MEDS: sodium chloride 0.9% 500 ML 999 ML IV (10:13)
--- NOTE | 2021-03-29 10:13 | P.PN_ITS ---
Subjective Subjective: Interval history: This morning patient was sleeping comfortably Creatinine worsened Patient is stating that he has not been drinking much fluid to avoid recurrent emesis Will give him [place], Martinez catheter to measure accurate output Start normal saline one hundred mill per hour Change vancomycin and Zosyn to linezolid cefepime and metronidazole Vitals/I&O/Wt Last Vital Signs Temp 98.3 F 03/29/21 08:11 Pulse 109 H 03/29/21 08:11 Resp 15 03/29/21 08:11 BP 167/88 03/29/21 08:11 Pulse Ox 97 03/29/21 08:11 03/28/21 03/29/21 03/29/21 22:59 06:59 14:59 Intake Total 631.667 / 1454.167 470 / 1924.167 800 / 800 Output Total 200 / 875 250 / 250 Balance 431.667 / 579.167 470 / 1049.167 550 / 550 Physical Exam Narrative: EXAM NARRATIVE: Patient resting comfortably Doing well on room air Abdomen soft S1, S2 Sinus tachycardia Clinic looks dehydrated Dry cracked lips Edema of left leg No signs of DVT No sign of ischemic ulcer Foul-smelling wound Appropriate mood and affect Data : 03/29/21 03:17 03/29/21 03:17 Micro: Microbiology 03/27/21 20:50 Urine Culture - Preliminary Urine,Clean Catch A&P Assessment and plan (1) Peripheral arterial disease: Status: Acute (2) Hyperosmolar hyperglycemic state (HHS): Status: Acute (3) Acute renal failure superimposed on stage 3b chronic kidney disease: Status: Acute (4) Essential hypertension: Status: Acute (5) Diabetic foot infection: Status: Acute Additional A&P Information Peripheral arterial disease No sign of ischemic ulcer No sign of ischemic limb For now he is on heparin DVT prophylaxis Will touch base with cardiology if we can do an angiogram however creatinine is worsening Acute on chronic kidney disease Secondary to dehydration, he also received contrast for abdomen pelvis CT scan on 03/25 Normal saline 100 mL/h, patient is awaiting drinking a lot of fluid to avoid emesis Patient encouraged to drink more fluids He can eat small meals to avoid gastroparesis induced emesis Change antibiotics to linezolid cefepime and metronidazole discontinue vancom ycin and Zosyn Hyperosmolar hyperglycemia: Improved Essential hypertension: Optimize antihypertensive, hold lisinopril for now Sinus tachycardia, no signs of DVT Left diabetic foul-smelling wound Nonhealing Secondary to poor arterial supply Poorly controlled diabetes No active plan for debridement No fever leukocytosis Reactive lymphadenopathy of left inguinal area Continue IV antibiotics Appreciate Dr. Lmion recommendations Consistent carb diet Heparin DVT prophylaxis Full code Attestations Medical Necessity Statement*: Will need at least 2-3 more days in the hospital to monitor his wound and ALESIA Time Spent in Patient Care: 16 - 35 minutes Coding Level of Care Code Acute Appellate Conferee for Chg Fwd Diagnoses Peripheral arterial disease I73.9 Hyperosmolar hyperglycemic state (HHS) E11.00; E11.65 Acute renal failure superimposed on stage 3b chronic kidney disease N17.9; N18.32 Essential hypertension I10 Diabetic foot infection E11.628; L08.9
[2021-03-29] MEDS: ondansetron 2 mg/ML SDV 2 mL 4 MG IVP ×2 (10:21→18:38)
[2021-03-29] MEDS: cefepime 2,000 MG in sodium chloride 0.9% (plus) 50 ML 100 MG IV (10:29)
[2021-03-29] MEDS: sodium chloride 0.9% 1,000 ML 100 ML IV ×2 (10:30→20:06)
[2021-03-29] MEDS: metoprolol tartrate 25 mg Tablet 12.5 MG PO ×2 (10:36→20:05)
[2021-03-29] MEDS: hyDRALAzine 50 mg Tablet PO (10:36)
[2021-03-29] MEDS: HYDROmorphone 1 mg/mL INJ 1 mL 0.5 MG IVP (10:46)
[2021-03-29 11:38] LABS: Glucose Point of Care 152 mg/dL (70-110)
[2021-03-29] MEDS: insulin lispro 100 unit/1 mL SUBCUT ×2 (12:10→18:29)
--- NOTE | 2021-03-29 12:18 | PC.NURSE ---
Patient is nauseous and vomiting green bile. Zofran given by RN as prescribed. Patient now reports relief of nausea after medication.
--- NOTE | 2021-03-29 15:18 | XRR_ITS ---
PROCEDURE INFORMATION: Exam: XR Chest Exam date and time: 03/29/2021 3:18 PM Age: 56 years old Clinical indication: Shortness of breath; Patient HX: SOB TECHNIQUE: Imaging protocol: XR of the chest. Views: 1 view. COMPARISON: CR XR chest 1V portable [id number] 09/21/2020 12:50 PM FINDINGS: Lungs: See Heart/Mediastinum finding. Pleural spaces: Unremarkable. No pleural effusion. No pneumothorax. Heart/Mediastinum: There are calcified mediastinal and perihilar lymph nodes consistent with prior granulomatous exposure. Bones/joints: Unremarkable. XR/XR chest 1V portable [id number] IMPRESSION: No evidence for acute cardiopulmonary disease.
--- NOTE | 2021-03-29 15:21 | XRR_ITS ---
PROCEDURE INFORMATION: Exam: XR Left Foot Exam date and time: 03/29/2021 3:21 PM Age: 56 years old Clinical indication: Swelling, leg or foot; Patient HX: Swollen crepitations TECHNIQUE: Imaging protocol: XR Left foot. Views: 1 or 2 views. COMPARISON: CR XR foot LT min 3V* [id number] 02/26/2021 9:53 AM FINDINGS: Bones/joints: There are multiple foci of air in the soft tissues dorsal and plantar to the midfoot and forefoot, consistent with infection/abscess formations. This is associated with soft tissue thickening and edema. Soft tissues: See Bones/joints finding. Vasculature: There are peripheral vascular calcifications. XR/XR foot LT 2V [id number] IMPRESSION: There are multiple foci of air in the soft tissues dorsal and plantar to the midfoot and forefoot, consistent with infection/abscess formations. This is associated with soft tissue thickening and edema.
[2021-03-29] MEDS: metoclopramide 5 mg/mL SDV 2 mL 10 MG IVP (15:23)
[2021-03-29] MEDS: metroNIDAZOLE IV 500 MG/100 ML PREMIX 100 MG IV ×2 (15:45→23:03)
[2021-03-29] MEDS: lactated ringers 500 ML 999 ML IV (15:45)
[2021-03-29 16:03] LABS: Anion Gap 19.4 (5-19); Blood Urea Nitrogen 45 mg/dL (6-20); Calcium 8.6 mg/dL (8.5-10.5); Carbon Dioxide 16 mmol/L (22-29); Chloride 95 mmol/L (98-107); Glomerular Filtration Rate 41.6 mL/min (90-130); Glucose 129 mg/dL (65-115); Osmolality Calculated 277 mOsm/kg (285-295); Potassium 3.4 mmol/L (3.5-5.1); Sodium 127 mmol/L (136-145)
[2021-03-29 17:50] LABS: Glucose Point of Care 158 mg/dL (70-110)
[2021-03-29] MEDS: atorvastatin 40 mg Tablet 20 MG PO (20:05)
[2021-03-30] VITALS (17 sets, daily range): BP systolic 91–195; BP diastolic 55–115; PULSE 70–109; RESP 9–25; TEMP 36.4–37; O2SAT 92–97
[2021-03-30] MEDS: heparin 5,000 unit/mL INJ 1 mL 5000 UNIT SUBCUT ×3 (02:53→17:43)
[2021-03-30 05:28] LABS: Basophils % 0.3 %; Eosinophils % 0.3 %; Hematocrit 36.4 % (42.0-52.0); Hemoglobin 11.8 g/dL (11.7-16.6); Lymphocytes # 1.3 10^3/uL (0.8-4.8); Lymphocytes % 13.5 %; Mean Corpuscular HGB Conc 32.4 g/dL (30.0-36.0); Mean Corpuscular Hemoglobin 27.1 pg (28.0-34.0); Mean Corpuscular Volume 83.5 fl (80-94); Mean Platelet Volume 11.5 fL (7.4-10.4); Monocytes # 0.8 10^3/uL (0.2-0.9); Monocytes % 8.6 %; Neutrophils # 6.79 10^3/uL (1.8-7.7); Nucleated Red Blood Cells % 0 %; Platelet Count 247 10^3/cmm (130-400); Red Blood Count 4.36 10^6/uL (4.1-5.3); Red Cell Distribution Width 13.2 % (12.1-15.1); White Blood Count 9.6 10^3/uL (4.0-10.0)
[2021-03-30 05:46] LABS: Lactate (Lactic Acid level) 0.9 mmol/L (0.5-2.2)
[2021-03-30 05:47] LABS: Anion Gap 19.2 (5-19); Blood Urea Nitrogen 52 mg/dL (6-20); Calcium 8.2 mg/dL (8.5-10.5); Carbon Dioxide 15 mmol/L (22-29); Chloride 98 mmol/L (98-107); Glomerular Filtration Rate 38.9 mL/min (90-130); Glucose 123 mg/dL (65-115); Osmolality Calculated 283 mOsm/kg (285-295); Potassium 3.2 mmol/L (3.5-5.1); Sodium 129 mmol/L (136-145)
[2021-03-30 05:49] LABS: Procalcitonin 10.43 ng/mL (0-0.5)
[2021-03-30] MEDS: sodium chloride 0.9% 1,000 ML 100 ML IV ×2 (06:02→11:38)
[2021-03-30 06:17] LABS: Slide Review Slide Review Perform
[2021-03-30] MEDS: metroNIDAZOLE IV 500 MG/100 ML PREMIX 100 MG IV ×3 (06:28→22:44)
[2021-03-30] MEDS: linezolid premix 600 MG/300 ML PREMIX 300 MG IV ×2 (06:28→18:36)
[2021-03-30] MEDS: cefepime 2,000 MG in sodium chloride 0.9% (plus) 50 ML 100 MG IV (06:28)
[2021-03-30] MEDS: lidocaine 1% 5 ML in potassium chloride premix 100 ML 25 ML IV (07:53)
[2021-03-30] MEDS: aspirin 81 mg EC Tablet PO (08:09)
[2021-03-30] MEDS: insulin lispro 100 unit/1 mL SUBCUT ×2 (08:09→12:22)
[2021-03-30] MEDS: metoprolol tartrate 25 mg Tablet 12.5 MG PO ×2 (08:09→20:48)
[2021-03-30 08:11] LABS: Glucose Point of Care 142 mg/dL (70-110)
[2021-03-30] MEDS: insulin glargine 100 units/1 mL 25 UNIT SUBCUT ×2 (08:11→17:43)
[2021-03-30 08:27] LABS: Magnesium 2.5 mg/dL (1.7-2.3)
[2021-03-30] MEDS: ondansetron 2 mg/ML SDV 2 mL 4 MG IVP ×2 (09:18→19:23)
--- NOTE | 2021-03-30 10:06 | PM.PN ---
Subjective Subjective: Interval history: This morning patient is feeling slightly better as compared to yesterday He is still hypertensive Creatinine 1.8 Adequate urine output, positive fluid balance Still having loose stools Left foot distal swollen He has been kept n.p.o. Potassium repleted magnesium 2.5 Procalcitonin 10.4 Vitals/I&O/Wt Last Vital Signs Temp 98.9 F 03/29/21 17:51 Pulse 84 03/30/21 06:00 Resp 21 H 03/30/21 05:20 BP 163/80 03/30/21 05:20 Pulse Ox 95 03/30/21 03:38 03/29/21 03/30/21 03/30/21 22:59 06:59 14:59 Intake Total 2380 / 5030 1100 / 6130 450 / 450 Output Total 525 / 775 350 / 1125 Balance 1855 / 4255 750 / 5005 450 / 450 Physical Exam Narrative: EXAM NARRATIVE: Patient sitting in a chair Saturating well on room air Heart rate in 80s Hypertensive EOMI, PERRLA Nonfocal neuro exam Abdomen soft Left foot swollen however hyperemia seems to be getting better, crepitation noted around dorsum of foot with serosanguineous purulent discharge from the wound Foul-smelling wound Swelling of foot and swelling of leg Martinez catheter draining normal colored urine Hydration status improved as compared to yesterday Urinary Catheter Management^: Martinez: Cath Placed During This Visit: yes Reason for Continuing Indwelling Catheter: Accurate Measurement of Urinary Output in Critically Ill Patients Urinary Catheter Date of Insertion: 03/29/21 Urinary Catheter Time of Insertion: 11:18 Data : 03/30/21 04:31 03/30/21 04:31 Micro: Microbiology 03/27/21 20:50 Urine Culture - Final Urine,Clean Catch 03/29/21 15:30 C.difficile Toxin B Gene (PCR) - Final Stool - Stool Aspirate A&P Assessment and plan (1) Acute renal failure superimposed on stage 3b chronic kidney disease: Status: Acute (2) Peripheral arterial disease: Status: Acute (3) Hyperosmolar hyperglycemic state (HHS): Status: Acute (4) CKD (chronic kidney disease) stage 3, GFR 30-59 ml/min: Status: Acute (5) Diabetes: Status: Acute (6) Essential hypertension: Status: Acute (7) Diabetic foot infection: Status: Acute (8) UTI (urinary tract infection): Status: Acute (9) Hypokalemia: Status: Acute Additional A&P Information Diabetic left foot foul-smelling wound Crepitation noted worsening swelling Currently on linezolid cefepime and metronidazole High D-dimer related to underlying infection No signs of clot, no DVT Sinus tachycardia improved with IV fluids Dr. Limon to evaluate his wound today he has been kept n.p.o. in case he will go for debridement No sign of sepsis, leukocytosis improved, afebrile, Peripheral arterial disease not a good candidate for angiogram, creatinine 1.8 No active signs of ischemic ulcers No pain at rest Continue aspirin, atorvastatin Dehydration: Continue IV fluid Acute on chronic kidney disease stage III I will continue IV fluids at 100 mL/h His tachycardia improved with IV fluids He has been n.p.o. continue normal saline Held lisinopril, antibiotics changed, received contrast at the time of admission Hematuria resolved which was probably due to traumatic Martinez catheter placement Rule out kidney stone with CT abdomen pelvis today We will get urine studies We will consult nephro tomorrow if his creatinine worsens then 1.8 Diarrhea: CT abdomen pelvis Check C. difficile Hypokalemia: Repleted Magnesium normal Hyperglycemia: Euglycemic, hemoglobin A1c 13 Attestations Medical Necessity Statement*: Continue medical management Time Spent in Patient Care: 16 - 35 minutes Coding Level of Care Code Acute Product Inspection Coordinator for g [facility] Diagnoses Acute renal failure superimposed on stage 3b chronic kidney disease N17.9; N18.32 Peripheral arterial disease I73.9 Hyperosmolar hyperglycemic state (HHS) E11.00; E11.65 CKD (chronic kidney disease) stage 3, GFR 30-59 ml/min N18.30 Diabetes E11.9 Essential hypertension I10 Diabetic foot infection E11.628; L08.9 UTI (urinary tract infection) N39.0 Hypokalemia E87.6
--- NOTE | 2021-03-30 10:08 | CTR_ITS ---
PROCEDURE INFORMATION: Exam: CT Abdomen And Pelvis Without Contrast Exam date and time: 03/30/2021 10:08 AM Age: 56 years old Clinical indication: Other: Diarrhea, worsening creatinine TECHNIQUE: Imaging protocol: Computed tomography of the abdomen and pelvis without contrast. Radiation optimization: All CT scans at this facility use at least one of these dose optimization techniques: automated exposure control; mA and/or kV adjustment per patient size (includes targeted exams where dose is matched to clinical indication); or iterative reconstruction. COMPARISON: CT abdomen pelvis w con* [id number] 03/25/2021 9:42 PM RADIATION DOSE METRICS: Total DLP (mGy-cm): FINDINGS: Pleural spaces: Bilateral small volume pleural effusions. Liver: A couple punctate calcifications noted in the right hepatic lobe. No evident mass. Gallbladder and bile ducts: Normal. No calcified stones. No ductal dilation. Pancreas: Mild fatty atrophy. No ductal dilation. Spleen: Punctate calcified granuloma in the spleen. No splenomegaly. Adrenal glands: Normal. No mass. Kidneys and ureters: No nephrolithiasis. No hydronephrosis. Stomach and bowel: Mild circumferential wall thickening of the distal esophagus. No obstruction. No mucosal thickening. Appendix: No evidence of appendicitis. Intraperitoneal space: Nonspecific small volume free fluid noted in the pelvis and within the left pericolic gutter. No free air. No significant fluid collection. Vasculature: Unremarkable. No abdominal aortic aneurysm. Lymph nodes: Prominent left inguinal lymph nodes noted which demonstrate normal morphology, most likely reactive. Urinary bladder: Martinez catheter noted within a decompressed bladder. Reproductive: Unremarkable as visualized. Bones/joints: No acute fracture. Soft tissues: Unremarkable. CT/CT abdomen pelvis con [id number] IMPRESSION: 1. Nonspecific small volume free fluid in the abdomen and pelvis. 2. Mild circumferential wall thickening of the distal esophagus which may relate to reflux esophagitis. 3. Prominent left inguinal lymph nodes with normal morphology, likely reactive. 4. Bilateral small volume pleural effusions.
--- NOTE | 2021-03-30 10:17 | CTR_ITS ---
PROCEDURE INFORMATION: Exam: CT Left Lower Extremity Without Contrast, Foot Exam date and time: 03/30/2021 10:17 AM Age: 56 years old Clinical indication: Pain; Foot; Left; Additional info: Cellulitis possible abscess TECHNIQUE: Imaging protocol: CT of the Left lower extremity without contrast was performed. Exam focused on the foot. Radiation optimization: All CT scans at this facility use at least one of these dose optimization techniques: automated exposure control; mA and/or kV adjustment per patient size (includes targeted exams where dose is matched to clinical indication); or iterative reconstruction. COMPARISON: CT foot LT wo con* [id number] 03/26/2021 12:08 PM RADIATION DOSE METRICS: Total DLP (mGy-cm): 370.2 FINDINGS: Bones/joints: Foci of air seen at the bases of the 2nd 3rd and 4th metatarsals. This is also present within the cuneiform, cuboid, and navicular bones. Soft tissues: Scattered subcutaneous emphysema noted within the dorsal foot and along the plantar aspects of the forefoot and midfoot. There is also trace foci of air within the ankle. Evaluation for fluid collection is limited without IV contrast. There is extensive subcutaneous edema centered within the midfoot and forefoot. CT/CT foot LT wo con* [id number] IMPRESSION: Extensive subcutaneous emphysema and edema centered within the midfoot and forefoot. Air is also seen within the bases of the 2nd through 4th metatarsals, cuneiforms, cuboid, and navicular bones suggestive of extensive osteomyelitis. An MRI of the foot would provide more sensitive evaluation as to the extent of the osteomyelitis. Please note, evaluation for abscess is limited without IV contrast.
[2021-03-30] MEDS: nitroglycerin 1 gm/inch oint Pkt 0.5 INCH TOPICAL ×3 (11:11→22:43)
[2021-03-30] MEDS: amlodipine 10 mg Tablet PO (11:12)
[2021-03-30] MEDS: metoclopramide 5 mg/mL SDV 2 mL 10 MG IVP (11:12)
[2021-03-30 12:03] LABS: Glucose Point of Care 154 mg/dL (70-110)
[2021-03-30 12:51] LABS: Potassium, Radom Urine 36 mmol/L; Urine Creatinine 216 mg/dL (39-259); Urine Random Chloride 17 mmol/L
[2021-03-30 12:56] LABS: Creatinine Urine, Random 216 mg/dL (39-259)
[2021-03-30 13:22] LABS: Microalbum Creatinine Ratio Ur 1968 mg/dL (0-20); Microalbumin Random Urine 425 ug/dL (0-20)
[2021-03-30 13:59] LABS: Urine Random Sodium < 10 mmol/L
[2021-03-30 14:00] LABS: Potassium Urine Random 36.17
--- NOTE | 2021-03-30 14:00 | P.PN_ITS ---
Subjective Subjective: Interval history: Patient has been nauseated today, denies any fevers or chills, overall he states the foot feels better Vitals/I&O/Wt Last Vital Signs Temp 98.9 F 03/29/21 17:51 Pulse 98 03/30/21 10:00 Resp 20 H 03/30/21 10:00 BP 194/115 03/30/21 10:00 Pulse Ox 95 03/30/21 03:38 03/29/21 03/30/21 03/30/21 22:59 06:59 14:59 Intake Total 2380 / 6130 1100 / 6130 1115 / 1115 Output Total 525 / 1125 350 / 1125 Balance 1855 / 5005 750 / 5005 1115 / 1115 Physical Exam Narrative: EXAM NARRATIVE: Left foot: Minimal erythema, significant pedal edema but I was not able to express dileep pus through the lateral wound while applying pressure on the dorsal aspect of the foot Urinary Catheter Management^: Martinez: Cath Placed During This Visit: yes Reason for Continuing Indwelling Catheter: Accurate Measurement of Urinary Output in Critically Ill Patients Urinary Catheter Date of Insertion: 03/29/21 Urinary Catheter Time of Insertion: 11:18 Data : 03/30/21 04:31 03/30/21 04:31 Micro: Microbiology 03/27/21 20:50 Urine Culture - Final Urine,Clean Catch 03/29/21 15:30 C.difficile Toxin B Gene (PCR) - Final Stool - Stool Aspirate A&P Assessment and plan (1) Diabetic foot infection: This is a 56-year-old male with type II diabetic admitted with DKA who also has left foot ulcer which is being cared for by Dr. Vidal at the wound care clinic. On exam there is edema of the left foot with minimal necrotic tissue tissue and cellulitis appears to be improved on IV antibiotics. Today patient had drainage of pus from the wound WBC is 9.[address] without contrast due to creatinine being 1.8 showed possible osteomyelitis with subcutaneous air in the soft tissue around the metatarsals Plan for I&D left foot with washout since he has clinically failed to improve after 96 hours of IV antibiotics and since there was drainage of dileep pus today with no significant improvement noted on CT scan. 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
--- NOTE | 2021-03-30 14:20 | P.ANESASSM_ITS ---
Pre-Anesthetic Assessment Pre-Anesthetic Assessment: Height/Weight: Height 1.75 m Weight 102.058 kg Temp Pulse Resp BP Pulse Ox 98.9 F 98 20 H 194/115 95 03/29/21 17:51 03/30/21 10:00 03/30/21 10:00 03/30/21 10:00 03/30/21 03:38 Preop Diagnosis: left foot infection Proposed Procedure: Operation Date: 03/30/21 14:45 Proposed Procedures p Incision And Drainage left foot(Left) - Sergo Limon MD Was Beta Driss taken within 24 hours: N/A Was Clonidine taken within 24 hours: N/A Social: Social History: No alcohol and No tobacco Exam: Pre-Anes Outpt Exam: alert, oriented x 3, clear to auscultation bilaterally and regular rate & rhythm Airway: Submandibular: WNL Cervical ROM: WNL MP: 2 Dentition: Chipped CV/HEM: CV/HEM: HTN and PVD : : Chronic renal Insufficiency Metabolic: Metabolic: DM (Poorly controlled) and Morbid obesity Comments: Admitted with DKA Anesthetic Plan: ASA status: 3 Anesthesia: MAC Risk of > 500 ml blood loss (7ml/kg in children): No Medications/Allergies Current Medications: Current Medications Generic Name Dose Route Start Last Admin Trade Name Freq PRN Reason Stop Dose Admin Acetaminophen 650 mg 03/25/21 22:42 03/28/21 20:33 Acetaminophen 32 5 Mg Tablet PO 650 mg Q6H PRN Administration Mild/Mod Pain Or Temp >/= 101 Amlodipine Besylat e 10 mg 03/30/21 10:20 03/30/21 11:12 Amlodipine 10 Mg Tablet PO 10 mg DAILY MANUELA Administration Aspirin 81 mg 03/26/21 09:00 03/30/21 08:09 Aspirin 81 Mg Ec Tablet PO 81 mg DAILY MANUELA Administration Atorvastatin Calci um 20 mg 03/26/21 21:00 03/29/21 20:05 Atorvastatin 40 Mg Tablet PO 20 mg BEDTIME MANUELA Administration Enoxaparin Sodium 40 mg 03/27/21 20:00 03/27/21 21:10 Enoxaparin 40 Mg /0.4 Ml Syringe SUBCUT 40 mg Q24H MANUELA Administration Heparin Sodium (Po rcine) 5,000 unit 03/28/21 10:30 03/30/21 11:11 Heparin 5,000 Un it/Ml Inj 1 Ml SUBCUT 5,000 unit Q8H MANUELA Administration Hydromorphone HCl 0.5 mg 03/26/21 12:00 03/29/21 10:46 Hydromorphone 1 Mg/Ml Inj 1 Ml IVP 0.5 mg Q4H PRN Administration pain Linezolid 600 mg in 300 mls @ 300 mls/hr 03/29/21 07:15 03/30/21 07:28 Zyvox Premix IV Infused Q12H [facility] Infusion Protocol Sodium Chloride 1,000 mls @ 100 m ls/hr 03/29/21 10:15 03/30/21 11:38 Sodium Chloride 0.9% IV 100 mls/hr .Q10H MANUELA Administration Cefepime HCl 2,000 mg/ Sodium 50 mls @ 100 mls/ hr 03/30/21 07:15 03/30/21 07:08 Chloride IV Infused Q24H [facility] Infusion Protocol Metronidazole 500 mg in 100 mls @ 100 mls/hr 03/29/21 15:30 03/30/21 07:53 Flagyl Iv IV Infused Q8H [facility] Infusion Protocol Insulin Glargine 25 unit 03/26/21 18:00 03/30/21 08:11 Insulin Glargine 100 Units/1 Ml SUBCUT 25 unit BID MANUELA Administration Insulin Human Lisp ro 0 unit 03/26/21 08:00 03/30/21 12:22 Insulin Lispro 1 00 Unit/1 Ml SUBCUT 4 unit TIDWM [facility] Administration Protocol Lisinopril 20 mg 03/27/21 09:25 03/28/21 07:53 Lisinopril 20 Mg Tablet PO 20 mg DAILY MANUELA Administration Metoclopramide HCl 10 mg 03/26/21 09:57 03/30/21 11:12 Metoclopramide 5 Mg/Ml Sdv 2 Ml IVP 10 mg Q6H PRN Administration NAUSEA AND VOMITI NG Metoprolol Tartrat e 12.5 mg 03/29/21 10:20 03/30/21 08:09 Metoprolol Tartr ate 25 Mg Tablet PO 12.5 mg BID@0900,2100 MANUELA Administration Nitroglycerin 0.5 inch 03/30/21 10:15 03/30/21 11:11 Nitroglycerin 1 Gm/Inch Oint Pkt TOPICAL 0.5 inch Q6H MANUELA Administration Ondansetron HCl 4 mg 03/25/21 22:42 03/30/21 09:18 Ondansetron 2 Mg /Ml Sdv 2 Ml IVP 4 mg Q8H PRN Administration vomiting, or N/V if npo PFSH Anesthesia PFSH: Medical History Acquired rearfoot varus Chronic renal impairment 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 Diabetes type 2, uncontrolled Diabetic peripheral neuropathy associated with type 2 diabetes mellitus Essential hypertension Foot abscess, left Hyperlipidemia associated with type 2 diabetes mellitus Hyperlipidemia, mixed Statin intolerance Surgical History Amputated toe of right foot secondary to osteomyelitis 4th right toe History of amputation of lesser toe History of partial amputation of toe of right foot Family History Father Diabetes Mother Diabetes Other Hypertension Social History Smoking and tobacco status: never smoked Second hand smoke exposure: No Smoking risk assessment/counseling performed?: No Alcohol intake: former Desire information about alcohol rehabilitation?: No Counseling given: No Desire information about substance/drug rehabilitation?: No Counseling given: No Adopted: No Caregiver/support person: No Lives independently: Yes Household members: spouse Housing: House Marital status: service: No Current occupational status: employed Pets and animals: Yes History of recent travel: No Current gender identity: Male Data Anesthesia CBC & Chem 7: 03/30/21 04:31 03/30/21 04:31 Other Labs: Laboratory Results - last 48 hr 03/28/21 03/29/21 03/29/21 16:33 03:17 03:17 WBC 10.3 H RBC 4.44 Hgb 11.8 Hct 38.2 L MCV 86.0 MCH 26.6 L MCHC 30.9 RDW 13.4 Plt Count 90 L D MPV 13.1 H Neut % (Auto) 81.8 Lymph % (Auto) 8.4 [place] % (Auto) 6.8 Eos % (Auto) 0.0 Baso % (Auto) 0.3 Neut # (Auto) 8.43 H Lymph # (Auto) 0.9 [place] # (Auto) 0.7 Eos # (Auto) 0.0 Baso # (Auto) 0.0 Nucleated RBC % (auto) 0 Nucleated RBCs # 0.0 Sodium 132 L Potassium 3.5 Chloride 97 L Carbon Dioxide 18 L Anion Gap 20.5 H BUN 42 H Creatinine 1.8 H GFR Calculation 38.9 L Glucose 85 POC Glucose 167 H Calculated Osmolality 284 L Lactate Calcium 8.8 Magnesium Procalcitonin Ur Random Microalbumin Ur Random Sodium Ur Random Potassium Ur Random Chloride Urine Creatinine Microalb/Creat Ratio 03/29/21 03/29/21 03/29/21 07:25 11:34 13:35 WBC RBC Hgb Hct MCV MCH MCHC RDW Plt Count MPV Neut % (Auto) Lymph % (Auto) [place] % (Auto) Eos % (Auto) Baso % (Auto) Neut # (Auto) Lymph # (Auto) [place] # (Auto) Eos # (Auto) Baso # (Auto) Nucleated RBC % (auto) Nucleated RBCs # Sodium 127 L Potassium 3.4 L Chloride 95 L Carbon Dioxide 16 L Anion Gap 19.4 H BUN 45 H Creatinine 1.7 H GFR Calculation 41.6 L Glucose 129 H POC Glucose 88 152 H Calculated Osmolality 277 L Lactate Calcium 8.6 Magnesium Procalcitonin Ur Random Microalbumin Ur Random Sodium Ur Random Potassium Ur Random Chloride Urine Creatinine Microalb/Creat Ratio 03/29/21 03/30/21 03/30/21 17:43 04:31 04:31 WBC 9.6 RBC 4.36 Hgb 11.8 Hct 36.4 L MCV 83.5 MCH 27.1 L MCHC 32.4 RDW 13.2 Plt Count 247 D MPV 11.5 H Neut % (Auto) 71.0 Lymph % (Auto) 13.5 [place] % (Auto) 8.6 Eos % (Auto) 0.3 Baso % (Auto) 0.3 Neut # (Auto) 6.79 Lymph # (Auto) 1.3 [place] # (Auto) 0.8 Eos # (Auto) 0.0 Baso # (Auto) 0.0 Nucleated RBC % (auto) 0 Nucleated RBCs # 0.0 Sodium 129 L Potassium 3.2 L Chloride 98 Carbon Dioxide 15 L Anion Gap 19.2 H BUN 52 H Creatinine 1.8 H GFR Calculation 38.9 L Glucose 123 H POC Glucose 158 H Calculated Osmolality 283 L Lactate Calcium 8.2 L Magnesium Procalcitonin 10.43 H Ur Random Microalbumin Ur Random Sodium Ur Random Potassium Ur Random Chloride Urine Creatinine Microalb/Creat Ratio 03/30/21 03/30/21 03/30/21 04:31 04:31 07:56 WBC RBC Hgb Hct MCV MCH MCHC RDW Plt Count MPV Neut % (Auto) Lymph % (Auto) [place] % (Auto) Eos % (Auto) Baso % (Auto) Neut # (Auto) Lymph # (Auto) [place] # (Auto) Eos # (Auto) Baso # (Auto) Nucleated RBC % (auto) Nucleated RBCs # Sodium Potassium Chloride Carbon Dioxide Anion Gap BUN Creatinine GFR Calculation Glucose POC Glucose 142 H Calculated Osmolality Lactate 0.9 Calcium Magnesium 2.5 H Procalcitonin Ur Random Microalbumin Ur Random Sodium Ur Random Potassium Ur Random Chloride Urine Creatinine Microalb/Creat Ratio 03/30/21 03/30/21 03/30/21 11:56 12:00 12:00 WBC RBC Hgb Hct MCV MCH MCHC RDW Plt Count MPV Neut % (Auto) Lymph % (Auto) [place] % (Auto) Eos % (Auto) Baso % (Auto) Neut # (Auto) Lymph # (Auto) [place] # (Auto) Eos # (Auto) Baso # (Auto) Nucleated RBC % (auto) Nucleated RBCs # Sodium Potassium Chloride Carbon Dioxide Anion Gap BUN Creatinine GFR Calculation Glucose POC Glucose 154 H Calculated Osmolality Lactate Calcium Magnesium Procalcitonin Ur Random Microalbumin 425 H Ur Random Sodium < 10 Ur Random Potassium 36.17 36 Ur Random Chloride 17 Urine Creatinine 216 216 Microalb/Creat Ratio 1968 H Micro: Microbiology 03/27/21 20:50 Urine Culture - Final Urine,Clean Catch 03/29/21 15:30 C.difficile Toxin B Gene (PCR) - Final Stool - Stool Aspirate Cardiac Studies: Echocardiogram 09/22/20 Sestamibi Stress Test (Cardiology) 09/23/20
--- NOTE | 2021-03-30 15:09 | PM.OP ---
Operative Report Date of procedure: March 30, 2021 Pre-op Diagnosis: 1. Cellulitis left foot with subcutaneous air on recent CT scan 2. Chronic diabetic left foot ulcer Post-op Diagnosis: 1. Left foot with pocket of pus between the second and third metatarsal 2. Chronic diabetic left foot ulcer 3. No evidence of necrotizing fasciitis or necrotic tissue requiring excision Post-op Findings: Abscess on the plantar surface of the metatarsals between the second and third metatarsal Procedure Done: Incision and drainage of left foot abscess measuring 3 x 4 cm Implants: Aerobic and anaerobic wound cultures Surgeon: Sergo Limon Anesthesia: MAC Condition: stable Disposition: PACU Procedure: The patient was taken to the operating room and placed under MAC. He is on therapeutic IV antibiotics. The left foot was prepped and draped in a sterile manner. Using 15 blade a 5 cm incision was made between the second and the third metatarsal bone over the area of prior erythema. The subcutaneous tissue was divided, the tissue appeared viable and there was no necrotic tissue or pus noted on the plantar aspect of the metatarsal bone. Using hemostats the muscles between the metatarsals were divided to enter the plantar surface of the foot with drainage of foul-smelling pus. Loculations were taken down bluntly and dissection was carried both proximally and distally to ensure that there was no other pockets of pus. Wound was irrigated with saline and half inch Martine drain was placed in the abscess cavity on the plantar aspect of the left foot. The skin was loosely approximated using vertical mattress 2-0 Prolene suture and 1/4 in ribbon gauze was packed between the sutures. The left foot was wrapped in Kerlix gauze and the patient was transferred to ICU in stable condition.
--- NOTE | 2021-03-30 15:18 | ANE.PACU2 ---
Inpatient post-anesthesia follow up: Airway intact: Yes Vital signs: Temperature 98.6 F Pulse Rate 85 Respiratory Rate 21 Blood Pressure 177/89 Pulse Oximetry 96 Oxygen Delivery Me thod Room Air Oxygen Flow Rate 2 Fraction of Inspir ed Oxygen Hydration adequate: Yes Nausea and vomiting: No Pain level: 1 Mental status: Baseline
[2021-03-30 17:41] LABS: Glucose Point of Care 127 mg/dL (70-110)
[2021-03-30] MEDS: enoxaparin 40 mg/0.4 mL Syringe SUBCUT (19:23)
[2021-03-30] MEDS: HYDROmorphone 1 mg/mL INJ 1 mL 0.5 MG IVP (19:45)
[2021-03-30] MEDS: atorvastatin 40 mg Tablet 20 MG PO (20:48)
[2021-03-30 20:57] LABS: Glucose Point of Care 121 mg/dL (70-110)
[2021-03-31] VITALS (26 sets, daily range): BP systolic 118–183; BP diastolic 65–94; PULSE 80–109; RESP 15–22; TEMP 36.5–36.8; O2SAT 95–98; BMI 36.3; BMI 37.1
[2021-03-31] MEDS: sodium chloride 0.9% 1,000 ML 100 ML IV
--- NOTE | 2021-03-31 00:07 | PC.NURSE ---
D/C Heparin Patient had slight nose bleed at 2200. Dr. Moore notified of current blood thinning medication and bleed. Order received to discontinue Heparin doses. All patient vitals stable.
[2021-03-31] MEDS: HYDROmorphone 1 mg/mL INJ 1 mL 0.5 MG IVP (00:46)
[2021-03-31 03:51] LABS: Basophils % 0.3 %; Eosinophils % 0.2 %; Hematocrit 34.8 % (42.0-52.0); Hemoglobin 11.3 g/dL (11.7-16.6); Lymphocytes # 1.4 10^3/uL (0.8-4.8); Lymphocytes % 10.4 %; Mean Corpuscular HGB Conc 32.5 g/dL (30.0-36.0); Mean Corpuscular Hemoglobin 26.4 pg (28.0-34.0); Mean Corpuscular Volume 81.3 fl (80-94); Mean Platelet Volume 10.6 fL (7.4-10.4); Monocytes # 1.2 10^3/uL (0.2-0.9); Monocytes % 9.1 %; Neutrophils % 76.1 %; Nucleated Red Blood Cells % 0 %; Platelet Count 229 10^3/cmm (130-400); Red Blood Count 4.28 10^6/uL (4.1-5.3); Red Cell Distribution Width 13.4 % (12.1-15.1)
--- NOTE | 2021-03-31 04:00 | PC.NURSE ---
Nitroglycerin Order Nitroglycerin order and current blood pressures discussed with Dr. Moore. Order received to hold 0415 dose of topical Nitroglycerin 0.5 gm in order to help prevent buildup of medication tolerance. Dose held.
[2021-03-31 04:03] LABS: Alanine Aminotransferase 13 U/L (0-41); Albumin Level 1.7 g/dL (3.5-5.2); Alkaline Phosphatase 93 IU/L (40-130); Anion Gap 17.3 (5-19); Aspartate Amino Transferase 15 U/L (0-40); Blood Urea Nitrogen 60 mg/dL (6-20); C Reactive Protein 150.7 mg/L (0.0-4.9); Calcium 7.7 mg/dL (8.5-10.5); Carbon Dioxide 15 mmol/L (22-29); Chloride 100 mmol/L (98-107); Globulin 3.4 g/dL (1.3-4.6); Glomerular Filtration Rate 27.9 mL/min (90-130); Glucose 72 mg/dL (65-115); Osmolality Calculated 283 mOsm/kg (285-295); Potassium 3.3 mmol/L (3.5-5.1); Sodium 129 mmol/L (136-145); Total Bilirubin 0.2 mg/dL (0.15-1.2); Total Protein 5.1 g/dL (6.6-8.7)
[2021-03-31 04:21] LABS: Slide Review Slide Review Perform
[2021-03-31] MEDS: lidocaine 2% viscous 15 ML, aluminum-mag hydrox-simethicon 30 ML, sucralfate oral liq 1 GM PO (06:30)
[2021-03-31] MEDS: cefepime 2,000 MG in sodium chloride 0.9% (plus) 50 ML 100 MG IV (06:41)
[2021-03-31] MEDS: linezolid premix 600 MG/300 ML PREMIX 300 MG IV ×2 (06:41→18:38)
[2021-03-31 07:18] LABS: Glucose Point of Care 104 mg/dL (70-110)
[2021-03-31] MEDS: metroNIDAZOLE IV 500 MG/100 ML PREMIX 100 MG IV ×3 (07:51→22:49)
[2021-03-31] MEDS: pantoprazole 40 mg SDV IVP (07:52)
[2021-03-31] MEDS: aspirin 81 mg EC Tablet PO (07:52)
[2021-03-31] MEDS: metoprolol tartrate 25 mg Tablet 12.5 MG PO ×2 (07:52→20:01)
[2021-03-31] MEDS: amlodipine 10 mg Tablet PO (07:52)
[2021-03-31] MEDS: insulin glargine 100 units/1 mL 25 UNIT SUBCUT ×2 (07:55→17:17)
--- NOTE | 2021-03-31 09:01 | P.CONIM_ITS ---
Providers/Reason For Consult Consulting Physician/Specialty*: jude kumari md/ telenephrology Reason for Consult*: ALESIA, met acidosis, hypontremia Attending Physician: Woodrow Metzger MD Primary Care Provider: MARK Kilpatrick History of Present Illness History of Present Illness Martir Kruger is a 56 year old male DM admitted on Mar 25, 2021 with DKA/ hyperglycemia, n/v and DM foot ulcer/ OM. Pts cr was 1 on admission. Pt had a CT w/ contrast. by 03/28/21 cr 1.6 mg/dl, 03/29/21 cr 1.8 mg/dl, today cr is 2.4 mg/dl even w/ fluids. pt alos has become hypontremic and has metabolic acidosis. Pt is POD #1 s/p foot debridement. pt is in ICU and feels well. he was on vancomycin and zosyn. Review of Systems Narrative: feels better weak, high glucose, foot pain no belcher, no diarrhea, no cp. + weak Medications/Allergies Home Medications Medication Instructions Recorded Confirmed Last Taken Type aspirin 81 mg tablet,delayed 81 mg PO DAILY 06/16/19 03/26/21 09/21/20 History release flash glucose sensor #1 ea 08/21/20 03/26/21 Unknown Rx Byetta 10 mcg SUBCUT DAILY 09/21/20 03/26/21 09/21/20 History albuterol sulfate 1 inh INHALATION QID PRN #8.5 g 09/23/20 03/26/21 Unknown Rx empagliflozin [Jardiance] 10 mg PO DAILY 03/26/21 03/26/21 Unknown History insulin detemir U-100 [Levemir 25 unit SUBCUT BID 03/26/21 03/26/21 Unknown History FlexTouch U-100 Insuln] insulin lispro [Humalog KwikPen See Rx Instructions .ROUTE .COMPLEX 03/26/21 03/26/21 Unknown History Insulin] lisinopril 10 mg PO DAILY 03/26/21 03/26/21 Unknown History Allergies Allergy/AdvReac Type Severity Reaction Status Date / Time No Known Allergies Allergy Verified 03/26/21 04:57 Current Medications Generic Name Dose Route Start Last Admin Trade Name Freq PRN Reason Stop Dose Admin Acetaminophen 650 mg 03/25/21 22:42 03/28/21 20:33 Acetaminophen 325 Mg Tablet PO 650 mg Q6H PRN Administration Mild/Mod Pain Or Temp >/= 101 Amlodipine Besylate 10 mg 03/30/21 10:20 03/31/21 07:52 Amlodipine 10 Mg Tablet PO 10 mg DAILY MANUELA Administration Aspirin 81 mg 03/26/21 09:00 03/31/21 07:52 Aspirin 81 Mg Ec Tablet PO 81 mg DAILY MANUELA Administration Atorvastatin Calcium 20 mg 03/26/21 21:00 03/30/21 20:48 Atorvastatin 40 Mg Tablet PO 20 mg BEDTIME MANUELA Administration Enoxaparin Sodium 40 mg 03/27/21 20:00 03/30/21 19:23 Enoxaparin 40 Mg/0.4 Ml Syringe SUBCUT 40 mg Q24H MANUELA Administration Hydromorphone HCl 0.5 mg 03/26/21 12:00 03/31/21 00:46 Hydromorphone 1 Mg/Ml Inj 1 Ml IVP 0.5 mg Q4H PRN Administration pain Linezolid 600 mg in 300 mls @ 300 mls/hr 03/29/21 07:15 03/31/21 07:49 Zyvox Premix IV Infused Q12H COUNTS INCLUDE 234 BEDS AT THE [facility] Infusion Protocol Sodium Chloride 1,000 mls @ 100 mls/hr 03/29/21 10:15 03/31/21 00:00 Sodium Chloride 0.9% IV 100 mls/hr .Q10H MANUELA Administration Cefepime HCl 2,000 mg/ Sodium 50 mls @ 100 mls/hr 03/30/21 07:15 03/31/21 07:22 Chloride IV Infused Q24H COUNTS INCLUDE 234 BEDS AT THE [facility] Infusion Protocol Metronidazole 500 mg in 100 mls @ 100 mls/hr 03/29/21 15:30 03/31/21 07:51 Flagyl Iv IV 100 mls/hr Q8H MANUELA Administration Protocol Insulin Glargine 25 unit 03/26/21 18:00 03/31/21 07:55 Insulin Glargine 100 Units/1 Ml SUBCUT 25 unit BID MANUELA Administration Insulin Human Lispro 0 unit 03/26/21 08:00 03/31/21 07:51 Insulin Lispro 100 Unit/1 Ml SUBCUT Not Given TIDWM COUNTS INCLUDE 234 BEDS AT THE [facility] Protocol Lisinopril 20 mg 03/27/21 09:25 03/28/21 07:53 Lisinopril 20 Mg Tablet PO 20 mg DAILY MANUELA Administration Metoclopramide HCl 10 mg 03/26/21 09:57 03/30/21 11:12 Metoclopramide 5 Mg/Ml Sdv 2 Ml IVP 10 mg Q6H PRN Administration NAUSEA AND VOMITING Metoprolol Tartrate 12.5 mg 03/29/21 10:20 03/31/21 07:52 Metoprolol Tartrate 25 Mg Tablet PO 12.5 mg BID@0900,2100 MANUELA Administration Nitroglycerin 0.5 inch 03/30/21 10:15 03/31/21 03:59 Nitroglycerin 1 Gm/Inch Oint Pkt TOPICAL Not Given Q6H MANUELA Ondansetron HCl 4 mg 03/25/21 22:42 03/30/21 19:23 Ondansetron 2 Mg/Ml Sdv 2 Ml IVP 4 mg Q8H PRN Administration vomiting, or N/V if npo Pantoprazole Sodium 40 mg 03/31/21 09:00 03/31/21 07:52 Pantoprazole 40 Mg Sdv IVP 40 mg DAILY MANUELA Administration PFSH Acute PFSH: Medical History Acquired rearfoot varus Chronic renal impairment 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 Diabetes type 2, uncontrolled Diabetic peripheral neuropathy associated with type 2 diabetes mellitus Essential hypertension Foot abscess, left Hyperlipidemia associated with type 2 diabetes mellitus Hyperlipidemia, mixed Statin intolerance Surgical History Amputated toe of right foot secondary to osteomyelitis 4th right toe History of amputation of lesser toe History of partial amputation of toe of right foot Family History Father Diabetes Mother Diabetes Other Hypertension Social History Smoking and tobacco status: never smoked Second hand smoke exposure: No Smoking risk assessment/counseling performed?: No Alcohol intake: former Desire information about alcohol rehabilitation?: No Counseling given: No Desire information about substance/drug rehabilitation?: No Counseling given: No Adopted: No Caregiver/support person: No Lives independently: Yes Household members: spouse Housing: House Marital status: service: No Current occupational status: employed Pets and animals: Yes History of recent travel: No Current gender identity: Male Vitals/I&O/Wt Last Vital Signs Temp 98.2 F 03/31/21 04:00 Pulse 101 H 03/31/21 06:00 Resp 15 03/31/21 06:00 BP 152/81 03/31/21 06:00 Pulse Ox 96 03/31/21 06:00 03/30/21 03/31/21 03/31/21 22:59 06:59 14:59 Intake Total 1300 / 2515.000 520 / 3035.000 350 / 350 Output Total 300 / 300 225 / 525 Balance 1000 / 2215.000 295 / 2510.000 350 / 350 Weight last 48 hrs Weight 111.493 kg Physical Exam Narrative: EXAM NARRATIVE: comfortable, NRD vss heent- nc/at, eomi neck no jvp lung cta b/l heart reg, no rub abd soft, nt, nd, + bs ext b/l edema, left foot bandaged neuro a,a, o x 3 Urinary Catheter Management^: Martinez: Cath Placed During This Visit: yes Reason for Continuing Indwelling Catheter: Accurate Measurement of Urinary Output in Critically Ill Patients Urinary Catheter Date of Insertion: 03/29/21 Urinary Catheter Time of Insertion: 11:18 Data Micro: Micro: Microbiology 03/30/21 15:00 Gram Stain - Final Other Source 03/30/21 14:25 Blood Culture - Pr eliminary Blood [facility] 03/30/21 14:14 Blood Culture - Pr eliminary Blood [facility] 03/27/21 20:50 Urine Culture - Fi nal Urine,Clean Catch A&P Additional A&P Information 56 yr old male 1. ALESIA- likely from PHI, dm infection -imaging w/o hydronephrosis -low ur na -ua w/ blood, prot, ketone- will repeat -monitor off diuretics -allow bp to be high -monitor for AIN- though less likely 2. hyponatremia- likely from alesia and low ur na- monitor w/ ivf 3. hypokalemia- gentle repletion 4. met acidosis- normal gluc, lctate improved- likely from infection, ALESIA in DM 5. DM- gluc control per medicine 6. DM foot OM- renal dose abx per medicine 7. bp okay 8. hgb ok seen and examined w/ CMA OR LPN- telehealth visit -time spent 50 minutes Consult [facility] Medical Necessity Statement: dm foot ulcer, alesia, hyponatremia, met acidosis Time Spent in Patient Care: Greater than 35 minutes (>than 50% of time spent in counselling and/or direct pt care on unit) . Coding Level of Care Code Acute Creative Writing Professor for Paula Ho
[2021-03-31 09:51] LABS: Uric Acid 9.6 mg/dL (3.4-7.0)
--- NOTE | 2021-03-31 10:03 | PC.CHAP ---
Pastoral Care Encounter/Spiritual Assessment Type of Contact [] Declined electric track switch maintainer visit [] Patient/Family/Request visit [] Outpatient visit [] Follow-up visit [] Physician referral [] Code/Alert [x] Routine visit [] Staff referral [] Actively dying [] Patient sleeping [] Family support [] [] Out of room [] Palliative care [] [] Receiving care in room [] Pre-surgical visit [] Trauma [] Long length of stay [x] ICU visit [] Other: Relational/Emotional Strength [] Patient feels connected with others/family/visitors/staff [] Distress [] Loneliness/isolation [] Abandonment Spirituality of Patient [] Person of Jania [] Attends Moravian of their Jania [] Believes in Prayer [] Reads Bible or Bahai materials [] There are Spiritual issues to be addressed Real Estate Consultant Interventions [x] Prayer [x] Active listening [x] Non-anxious presence [x] Spiritual/emotional support [] Crisis/trauma care [] Spiritual counseling [] Bereavement support [] Provided bereavement packet [] Provided Bible/devotional materials [] Provided toy/stuffed animal, coloring book to patient or family member [] Provided Communion [] Anointing/Wellman [] Salvation [x] Completed spiritual assessment [] Other: Impact on Illness or Injury [] Angry [] Fearful [] Anxious [] Often cries [] Exhaustion [] Unable to work [] Unable to attend sikh [] Unable to walk/stand [] Unable to read [] Unable to drive [] Unable to eat/drink [] Unable to sleep [] Unable to be with family [] Patient intubated [] Other: Summary patinet resting well. prayed for quick recovery Time spent with patient 5 min
[2021-03-31] MEDS: nitroglycerin 1 gm/inch oint Pkt 0.5 INCH TOPICAL ×3 (10:15→22:49)
[2021-03-31] MEDS: sodium bicarbonate 50 MEQ in sodium chloride 0.45% 1,000 ML 75 MEQ IV (10:15)
[2021-03-31 10:22] LABS: ABG PCO2 27.8 mmHg (35-45); ABG PH Result 7.37 (7.35-7.45); Alveolar-Arterial Oxygen Gradi 4.3 mmHg (5-10); Arterial Blood Gas Hematocrit 36.7 % (42-52); Base Excess ABG -8.1 mmol/L (-2.0-2.0); Blood Gas Allen Test Pos; Blood Gas Sample Type Arterial; Carboxyhemoglobin 0.8 %THgb (0.4-20.1); HCO3 ABG 15.9 mmol/L (22-26); HGB O2 Sat 94.6 % (95-100); Ionized Calcium Level - ABG 1.1 mmol/L (1.1-1.4); Methemoglobin 1.2 % (0.4-1.5); Oxygen Saturation ABG 96.5; PO2 ABG 79.4 mmHg (80.0-100.0); Potassium Level - ABG 3.2 mmol/L (3.5-5.0)
[2021-03-31 10:23] LABS: Blood Gas Operator Identificat GD; Blood Gas Sample Site Radial, right; Oxygen Device ROOM AIR
[2021-03-31 11:31] LABS: Glucose Point of Care 182 mg/dL (70-110)
[2021-03-31] MEDS: insulin lispro 100 unit/1 mL SUBCUT (12:10)
[2021-03-31 12:23] LABS: Alanine Aminotransferase 13 U/L (0-41); Alkaline Phosphatase 120 IU/L (40-130); Anion Gap 18.4 (5-19); Aspartate Amino Transferase 23 U/L (0-40); Blood Urea Nitrogen 61 mg/dL (6-20); Calcium 7.2 mg/dL (8.5-10.5); Carbon Dioxide 15 mmol/L (22-29); Chloride 95 mmol/L (98-107); Creatine Phosphokinase 28 U/L (39-308); Globulin 3.9 g/dL (1.3-4.6); Glomerular Filtration Rate 24.4 mL/min (90-130); Glucose 181 mg/dL (65-115); Osmolality Calculated 282 mOsm/kg (285-295); Potassium 3.4 mmol/L (3.5-5.1); Sodium 125 mmol/L (136-145); Total Bilirubin 0.2 mg/dL (0.15-1.2); Total Protein 5.9 g/dL (6.6-8.7); Uric Acid 10.4 mg/dL (3.4-7.0)
[2021-03-31 12:59] LABS: Potassium, Radom Urine 26 mmol/L; Urine Random Chloride 20 mmol/L
[2021-03-31 13:00] LABS: Urine Random Sodium 12 mmol/L
--- NOTE | 2021-03-31 13:17 | P.PN_ITS ---
Subjective Subjective: Interval history: Patient is feeling better this morning status post I&D by Dr. Limon on 03/30 No overnight events Creatinine worsened, requested nephro consult Spoke with Dr. Norris Vitals/I&O/Wt Last Vital Signs Temp 98.0 F 03/31/21 08:00 Pulse 98 03/31/21 11:00 Resp 15 03/31/21 11:00 BP 164/80 03/31/21 11:00 Pulse Ox 97 03/31/21 11:00 03/30/21 03/31/21 03/31/21 22:59 06:59 14:59 Intake Total 1300 / 2515.000 520 / 3035.000 Output Total 300 / 300 225 / 525 Balance 1000 / 2215.000 295 / 2510.000 Weight last 48 hrs Weight 111.493 kg Physical Exam 2 Narrative: EXAM NARRATIVE: Left foot has dressing soaked in blood, Tension and black pigmentation noted around the sutures Edema has not significantly improved Left leg edema Right leg and upper extremities nonedematous Patient does not look bloated Awake and alert Saturating well on room air Tachycardic this morning Abdomen soft No audible stridor or wheezing Urinary Catheter Management^: Martinez: Cath Placed During This Visit: yes Reason for Continuing Indwelling Catheter: Accurate Measurement of Urinary Output in Critically Ill Patients Urinary Catheter Date of Insertion: 03/29/21 Urinary Catheter Time of Insertion: 11:18 Data : 03/31/21 03:10 03/31/21 11:37 Micro: Microbiology 03/30/21 15:00 Gram Stain - Final Other Source 03/30/21 14:25 Blood Culture - Preliminary Blood SPECIMEN COLLECTED 03/30/21 14:14 Blood Culture - Preliminary Blood SPECIMEN COLLECTED 03/27/21 20:50 Urine Culture - Final Urine,Clean Catch A&P Assessment and plan (1) Hyperosmolar hyperglycemic state (HHS): Status: Acute (2) Acute renal failure superimposed on stage 3b chronic kidney disease: Status: Acute (3) Peripheral arterial disease: Status: Acute (4) UTI (urinary tract infection): Status: Acute (5) Hypokalemia: Status: Acute (6) Essential hypertension: Status: Acute (7) Diabetic foot infection: Status: Acute Additional A&P Information Diabetic foot ulcer Status post I&D by Dr. Limon on 03/30 Continue broad-spectrum antibiotics, renally dosed, change dose of cefepime Hyperglycemia: Resolved No signs of DKA Acute on chronic kidney disease PHI No signs of rash, no signs of hydronephrosis Appreciate nephro recommendations Peripheral arterial disease Not a candidate for an angiogram or contrast studies at this point Continue aspirin and statin Essential hypertension Blood pressure slightly better with optimization of antihypertensives Full code Consistent carb diet Diarrhea resolved DVT prophylaxis re-start from today Attestations Medical Necessity Statement*: Transfer out of ICU Time Spent in Patient Care: less than 15 minutes Coding Level of Care Code Acute Associate Professor Of Anthropology for Chg Fwd Diagnoses Hyperosmolar hyperglycemic state (HHS) E11.00; E11.65 Acute renal failure superimposed on stage 3b chronic kidney disease N17.9; N18.32 Peripheral arterial disease I73.9 UTI (urinary tract infection) N39.0 Hypokalemia E87.6 Essential hypertension I10 Diabetic foot infection E11.628; L08.9
--- NOTE | 2021-03-31 15:58 | PM.PN ---
Subjective Subjective: Interval history: Patient states that he overall feels better, no nausea or vomiting, leg pain is improved Vitals/I&O/Wt Last Vital Signs Temp 98.0 F 03/31/21 08:00 Pulse 102 H 03/31/21 15:00 Resp 19 H 03/31/21 15:00 BP 158/84 03/31/21 15:00 Pulse Ox 97 03/31/21 15:00 03/31/21 03/31/21 03/31/21 06:59 14:59 22:59 Intake Total 520 / 3035.000 2017.333 / 2117.333 100 / 2117.333 Output Total 225 / 525 Balance 295 / 2510.000 2017.333 / 2117.333 100 / 2117.333 Weight last 48 hrs Weight 245 lb 12.8 oz Physical Exam Narrative: EXAM NARRATIVE: Left leg: Edema is improved, erythema is improved, incision has been packed with quarter inch ribbon gauze, Downey drain in place Urinary Catheter Management^: Martinez: Cath Placed During This Visit: yes Reason for Continuing Indwelling Catheter: Accurate Measurement of Urinary Output in Critically Ill Patients Urinary Catheter Date of Insertion: 03/29/21 Urinary Catheter Time of Insertion: 11:18 Data : 03/31/21 03:10 03/31/21 11:37 Micro: Microbiology 03/30/21 14:25 Blood Culture - Preliminary Blood NEGATIVE TO DATE 03/30/21 14:14 Blood Culture - Preliminary Blood NEGATIVE TO DATE 03/30/21 15:00 Gram Stain - Final Other Source 03/27/21 20:50 Urine Culture - Final Urine,Clean Catch A&P Assessment and plan (1) Diabetic foot infection: This is a 56-year-old male with type II diabetic admitted with DKA who also has left foot ulcer which is being cared for by Dr. Vidal at the wound care clinic. Patient was noted to have subcu air on repeat CT scan with no clinical improvement noted with IV antibiotics. He underwent incision and drainage of left foot abscess yesterday. 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
[2021-03-31] MEDS: ondansetron 2 mg/ML SDV 2 mL 4 MG IVP ×2 (16:18→20:55)
[2021-03-31 16:20] LABS: Glucose Point of Care 115 mg/dL (70-110)
--- NOTE | 2021-03-31 18:06 | PC.NURSE ---
Shift Note Frequent safety and comfort rounds continue. Orders and/or nursing care completed as indicated. Patient monitored for response to intervention and treatment(s). Education provided includes treatment plan, medications and perineal care. Pt verbalizes understanding. Denies any needs at this time. Able to make all needs known. VSS. Will continue to monitor.
[2021-03-31] MEDS: atorvastatin 40 mg Tablet 20 MG PO (20:02)
--- NOTE | 2021-03-31 20:28 | PC.NURSE ---
Patient transferred to [facility] bed 276-2 via bed. All patient belongings accounted for and with patient at bedside. Receiving nurse, Jad, aware of patient arrival. Patient tolerated transfer well.
[2021-03-31] MEDS: acetaminophen 325 mg Tablet 650 MG PO (20:55)
[2021-03-31] MEDS: heparin 5,000 unit/mL INJ 1 mL 5000 UNIT SUBCUT (20:55)
[2021-03-31 21:33] LABS: Glucose Point of Care 85 mg/dL (70-110)
--- NOTE | 2021-03-31 22:09 | PC.NURSE ---
i reported high pulse 101 to mina
[2021-04-01] VITALS (9 sets, daily range): BP systolic 132–172; BP diastolic 72–81; PULSE 95–115; RESP 14–17; TEMP 36.6–37.5; O2SAT 96–99
[2021-04-01] MEDS: sodium bicarbonate 50 MEQ in sodium chloride 0.45% 1,000 ML 75 MEQ IV (00:51)
[2021-04-01] MEDS: heparin 5,000 unit/mL INJ 1 mL 5000 UNIT SUBCUT ×3 (04:45→22:06)
[2021-04-01] MEDS: nitroglycerin 1 gm/inch oint Pkt 0.5 INCH TOPICAL ×4 (04:45→22:07)
[2021-04-01] MEDS: cefepime 1,000 MG in sodium chloride 0.9% (plus) 50 ML 100 MG IV (06:15)
[2021-04-01 06:27] LABS: Basophils # 0.1 10^3/uL (0.0-0.1); Basophils % 0.4 %; Eosinophils # 0.1 10^3/uL (0.0-0.8); Eosinophils % 0.6 %; Hematocrit 37.9 % (42.0-52.0); Hemoglobin 12.5 g/dL (11.7-16.6); Lymphocytes # 1.4 10^3/uL (0.8-4.8); Lymphocytes % 7.6 %; Mean Corpuscular Hemoglobin 26.4 pg (28.0-34.0); Mean Platelet Volume 10.8 fL (7.4-10.4); Monocytes # 1.1 10^3/uL (0.2-0.9); Monocytes % 6.2 %; Neutrophils # 14.29 10^3/uL (1.8-7.7); Neutrophils % 78.9 %; Nucleated Red Blood Cells % 0 %; Platelet Count 288 10^3/cmm (130-400); Red Blood Count 4.74 10^6/uL (4.1-5.3); Red Cell Distribution Width 13.2 % (12.1-15.1); White Blood Count 18.1 10^3/uL (4.0-10.0)
[2021-04-01 06:38] LABS: Glucose Point of Care 170 mg/dL (70-110)
[2021-04-01 06:47] LABS: 25 Hydroxy Vitamin D 14 ng/mL (30-100); Alanine Aminotransferase 11 U/L (0-41); Albumin Level 1.6 g/dL (3.5-5.2); Alkaline Phosphatase 98 IU/L (40-130); Anion Gap 19.1 (5-19); Aspartate Amino Transferase 22 U/L (0-40); Blood Urea Nitrogen 61 mg/dL (6-20); Calcium 7.7 mg/dL (8.5-10.5); Carbon Dioxide 13 mmol/L (22-29); Chloride 97 mmol/L (98-107); Globulin 4.1 g/dL (1.3-4.6); Glomerular Filtration Rate 23.4 mL/min (90-130); Glucose 93 mg/dL (65-115); Magnesium 2.5 mg/dL (1.7-2.3); Osmolality Calculated 279 mOsm/kg (285-295); Phosphorus 3.7 mg/dL (2.5-4.5); Potassium 3.1 mmol/L (3.5-5.1); Sodium 126 mmol/L (136-145); Total Bilirubin 0.2 mg/dL (0.15-1.2); Total Protein 5.7 g/dL (6.6-8.7)
[2021-04-01 07:47] LABS: Slide Review Slide Review Perform
[2021-04-01] MEDS: pantoprazole 40 mg SDV IVP (09:16)
[2021-04-01] MEDS: metroNIDAZOLE IV 500 MG/100 ML PREMIX 100 MG IV ×3 (09:23→23:36)
[2021-04-01] MEDS: insulin lispro 100 unit/1 mL SUBCUT ×2 (09:26→13:01)
[2021-04-01] MEDS: metoprolol tartrate 25 mg Tablet 12.5 MG PO ×2 (09:26→22:06)
[2021-04-01] MEDS: b-complex-vitamin c Tablet 1 EACH PO (09:27)
[2021-04-01] MEDS: aspirin 81 mg EC Tablet PO (09:27)
[2021-04-01] MEDS: amlodipine 5 mg Tablet PO (09:27)
--- NOTE | 2021-04-01 09:34 | PM.PN ---
Subjective Subjective: Interval history: Patient also transfer out of ICU, patient is endorsing feeling much better, no active emesis, dressing has been changed by Dr. Limon yesterday, not complaining of active pain He is asking if he could take a shower today Creatinine plateaued, leukocytosis noted Patient is afebrile Vitals/I&O/Wt Last Vital Signs Temp 97.8 F 04/01/21 08:00 Pulse 103 H 04/01/21 08:00 Resp 16 04/01/21 08:00 BP 172/80 04/01/21 08:00 Pulse Ox 99 04/01/21 08:00 03/31/21 04/01/21 04/01/21 22:59 06:59 14:59 Intake Total 760 / 2778.333 1390 / 4168.333 Output Total 200 / 200 280 / 480 Balance 560 / 2578.333 1110 / 3688.333 Weight last 48 hrs Weight 2.523 kg Weight 114.124 kg Weight 111.493 kg Physical Exam Narrative: EXAM NARRATIVE: Patient resting comfortably in his bed swelling noticed around left foot Soft abdomen Nonfocal neuro exam Saturating well on room air No joint swelling Hands are puffy, left leg swollen No audible stridor or wheezing Urinary Catheter Management^: Martinez: Cath Placed During This Visit: yes Reason for Continuing Indwelling Catheter: Acute Urinary Retention or Obstruction Urinary Catheter Date of Insertion: 03/29/21 Urinary Catheter Time of Insertion: 11:18 Data : 04/02/21 04:59 04/02/21 04:59 Micro: Microbiology 03/30/21 15:00 Gram Stain - Final Other Source Wound Culture - Preliminary Strep agalactiae - (group b) 03/30/21 15:00 Anaerobic Culture - Preliminary Foot - #1 03/30/21 14:25 Blood Culture - Preliminary Blood NEGATIVE TO DATE 03/30/21 14:14 Blood Culture - Preliminary Blood NEGATIVE TO DATE A&P Assessment and plan (1) Hypokalemia: Status: Acute (2) UTI (urinary tract infection): Status: Acute (3) Acute renal failure superimposed on stage 3b chronic kidney disease: Status: Acute (4) Peripheral arterial disease: Status: Acute (5) Hyperosmolar hyperglycemic state (HHS): Status: Acute (6) Diabetes: Status: Acute (7) Essential hypertension: Status: Acute (8) Diabetic foot infection: Status: Acute Plan Left diabetic foot ulcer Growing strep atelectatic, previous culture sensitive to penicillin, I would continue broad-spectrum antibiotics until we see final culture and sensitivity report, noted leukocytosis, which could be stress response to the surgery, afebrile, patient is endorsing feeling much better Gastroparesis secondary to diabetes: Improved Hypokalemia: Potassium repleted Acute on chronic kidney disease secondary to contrast-induced nephropathy, creatinine has plateaued, appreciate nephro recommendations Nonoliguric ATN Lasix added by the nephro, clinically patient is fluid overloaded Sinus tachycardia continue metoprolol No signs of DVT Peripheral arterial disease, patient will need peripheral angiogram and outpatient follow-up no active signs of ischemic ulcers DVT prophylaxis Heparin Attestations Medical Necessity Statement*: Acute tubular necrosis wound care by Dr. 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
[2021-04-01] MEDS: insulin glargine 100 units/1 mL 25 UNIT SUBCUT ×2 (09:36→18:13)
[2021-04-01] MEDS: linezolid premix 600 MG/300 ML PREMIX 300 MG IV ×2 (10:05→19:45)
--- NOTE | 2021-04-01 10:21 | P.PN_ITS ---
Subjective Subjective: Interval history: feels better. no n/v/f/c/belcher/d. swollen Medications: Reviewed: Yes Medication Review Details: Current Medications Acetaminophen (Acetaminophen 325 Mg Tablet) 650 mg PO Q6H PRN PRN Reason: Mild/Mod Pain Or Temp >/= 101 Last Admin: 03/31/21 20:55 Dose: 650 mg Documented by: Amlodipine Besylate (Amlodipine 5 Mg Tablet) 5 mg PO DAILY [facility] Last Admin: 04/01/21 09:27 Dose: 5 mg Documented by: Aspirin (Aspirin 81 Mg Ec Tablet) 81 mg PO DAILY [facility] Last Admin: 04/01/21 09:27 Dose: 81 mg Documented by: Atorvastatin Calcium (Atorvastatin 40 Mg Tablet) 20 mg PO BEDTIME [facility] Last Admin: 03/31/21 20:02 Dose: 20 mg Documented by: Bisacodyl (Bisacodyl 5 Mg Tablet) 10 mg PO DAILY PRN; Protocol PRN Reason: Constipation (see protocol) Dextrose (Dextrose 50% Syringe 50 Ml) 25 ml IVP ONCE PRN; Protocol PRN Reason: hypoglycemia protocol Dextrose (Dextrose 50% Syringe 50 Ml) 50 ml IVP PRN PRN; Protocol PRN Reason: hypoglycemia protocol Glucagon (Glucagon 1 Mg/Ml Inj 1 Ml) 1 mg IM ONCE PRN; Protocol PRN Reason: Adult Acute Hypoglycemia Prot Heparin Sodium (Porcine) (Heparin 5,000 Unit/Ml Inj 1 Ml) 5,000 unit SUBCUT Q8H [facility] Last Admin: 04/01/21 04:45 Dose: 5,000 unit Documented by: Hydralazine HCl (Hydralazine 20 Mg/Ml Inj 1 Ml) 10 mg IVP Q4H PRN PRN Reason: if sbp>180 Dextrose (D5w) 500 mls @ 100 mls/hr IV ONCE PRN; Protocol PRN Reason: Adult Acute Hypoglycemia Prot Linezolid (Zyvox Premix) 600 mg in 300 mls @ 300 mls/hr IV Q12H [facility]; Protocol Last Admin: 04/01/21 10:05 Dose: 300 mls/hr Documented by: Metronidazole (Flagyl Iv) 500 mg in 100 mls @ 100 mls/hr IV Q8H [facility]; Protocol Last Infusion: 04/01/21 10:05 Dose: 100 mls/hr Documented by: Cefepime HCl 1,000 mg/ Sodium (Chloride) 50 mls @ 100 mls/hr IV Q24H [facility]; Protocol Last Admin: 04/01/21 06:15 Dose: 100 mls/hr Documented by: Insulin Glargine (Insulin Glargine 100 Units/1 Ml) 25 unit SUBCUT BID [facility] Last Admin: 04/01/21 09:36 Dose: 25 unit Documented by: Insulin Human Lispro (Insulin Lispro 100 Unit/1 Ml) 0 unit SUBCUT TIDWM [facility]; Protocol Last Admin: 04/01/21 09:26 Dose: 4 unit Documented by: Metoclopramide HCl (Metoclopramide 5 Mg/Ml Sdv 2 Ml) 10 mg IVP Q6H PRN PRN Reason: NAUSEA AND VOMITING Last Admin: 03/30/21 11:12 Dose: 10 mg Documented by: Metoprolol Tartrate (Metoprolol Tartrate 25 Mg Tablet) 12.5 mg PO BID@0900,2100 [facility] Last Admin: 04/01/21 09:26 Dose: 12.5 mg Documented by: Multivitamins (B-Zfxfwcn-Pzzzbrw C Tablet) 1 each PO DAILY [facility] Last Admin: 04/01/21 09:27 Dose: 1 each Documented by: Nitroglycerin (Nitroglycerin 1 Gm/Inch Oint Pkt) 0.5 inch TOPICAL Q6H [facility] Last Admin: 04/01/21 10:10 Dose: 0.5 inch Documented by: Ondansetron HCl (Ondansetron 2 Mg/Ml Sdv 2 Ml) 4 mg IVP Q8H PRN PRN Reason: vomiting, or N/V if npo Last Admin: 03/31/21 20:55 Dose: 4 mg Documented by: Pantoprazole Sodium (Pantoprazole 40 Mg Sdv) 40 mg IVP DAILY [facility] Last Admin: 04/01/21 09:16 Dose: 40 mg Documented by: Vitals/I&O/Wt Last Vital Signs Temp 97.8 F 04/01/21 08:00 Pulse 103 H 04/01/21 08:00 Resp 16 04/01/21 08:00 BP 172/80 04/01/21 08:00 Pulse Ox 99 04/01/21 08:00 03/31/21 04/01/21 04/01/21 22:59 06:59 14:59 Intake Total 760 / 2778.333 1390 / 4168.333 291.667 / 291.667 Output Total 200 / 200 280 / 480 Balance 560 / 2578.333 1110 / 3688.333 291.667 / 291.667 Weight last 48 hrs Weight 2.523 kg Weight 114.124 kg Weight 111.493 kg Physical Exam Narrative: EXAM NARRATIVE: comfortable, NRD vss heent- nc/at, eomi neck no jvp lung cta b/l heart reg, no rub abd soft, nt, nd, + bs ext b/l edema, left foot bandaged neuro a,a, o x 3 Urinary Catheter Management^: Martinez: Cath Placed During This Visit: yes Reason for Continuing Indwelling Catheter: Acute Urinary Retention or Obstruction Urinary Catheter Date of Insertion: 03/29/21 Urinary Catheter Time of Insertion: 11:18 Data : 04/01/21 05:23 04/01/21 05:23 Micro: Microbiology 03/30/21 15:00 Gram Stain - Final Other Source Wound Culture - Preliminary Strep agalactiae - (group b) 03/30/21 15:00 Anaerobic Culture - Preliminary Foot - #1 03/30/21 14:25 Blood Culture - Preliminary Blood NEGATIVE TO DATE 03/30/21 14:14 Blood Culture - Preliminary Blood NEGATIVE TO DATE A&P Assessment and plan (1) Acute renal failure superimposed on stage 3b chronic kidney disease: 56 yr old male 1. ALESIA- likely from PHI, dm infection -imaging w/o hydronephrosis -low ur na -ua w/ blood, prot, ketone- -bp high- swollen- restart lasix w/o arianne-i -give albumin w/ lasix -cr starting to plateau -monitor for AIN- though less likely 2. hyponatremia-? likely from alesia and low ur na- monitor w/ lasix 3. hypokalemia- replete and monitor 4. met acidosis- normal gluc, lactate improved- likely from infection, ALESIA in DM 5. DM- gluc control per medicine 6. DM foot OM- renal dose abx per medicine -WBC rising 7. bp elevated- avoid ARB/ ARIANNE-I/ ALDACTONE w/ ALESIA 8. hgb ok seen and examined w/ RN- telehealth visit -time spent 30 minutes Status: Acute Attestations Medical Necessity Statement*: alesia, dm foot infection/ OM Time Spent in Patient Care: 16 - 35 minutes (>than 50% of time spent in counselling and/or direct pt care on unit) . 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
[2021-04-01 11:08] LABS: Thyroid Stimulating Hormone 1.79 uIU/mL (0.27-4.20)
[2021-04-01] MEDS: potassium chloride ER 20 mEq Tablet 40 MEQ PO (11:30)
[2021-04-01] MEDS: albumin 12.5 GM/50 ML VIAL IV (11:42)
[2021-04-01] MEDS: FUROsemide 10 mg/mL SDV 2mL 20 MG IVP ×2 (11:52→22:08)
[2021-04-01 12:04] LABS: Glucose Point of Care 143 mg/dL (70-110)
[2021-04-01] MEDS: potassium chloride ER 20 mEq Tablet PO (15:34)
--- NOTE | 2021-04-01 16:14 | PM.PN ---
Subjective Subjective: Interval history: Patient denies any nausea or vomiting, tolerating regular diet. Overall he states that he feels better, denies significant left lower extremity pain. Patient has been afebrile Vitals/I&O/Wt Last Vital Signs Temp 98.6 F 04/01/21 12:00 Pulse 97 04/01/21 12:00 Resp 15 04/01/21 12:00 BP 167/81 04/01/21 12:00 Pulse Ox 98 04/01/21 12:00 04/01/21 04/01/21 04/01/21 06:59 14:59 22:59 Intake Total 1390 / 4168.333 1695.000 / 1695.000 Output Total 280 / 480 200 / 200 Balance 1110 / 3688.333 1495.000 / 1495.000 Weight last 48 hrs Weight 5 lb 9 oz Weight 251 lb 9.6 oz Weight 245 lb 12.8 oz Physical Exam Narrative: EXAM NARRATIVE: Left foot: Edema appears to be improved, left foot and ankle is warm to touch, ecchymosis of the skin around the incision, packings were partially removed today, Martine drain in place Urinary Catheter Management: Martinez: Cath Placed During This Visit: yes Reason for Continuing Indwelling Catheter: Acute Urinary Retention or Obstruction Urinary Catheter Date of Insertion: 03/29/21 Urinary Catheter Time of Insertion: 11:18 Data : 04/01/21 05:23 04/01/21 05:23 Micro: Microbiology 03/30/21 15:00 Anaerobic Culture - Preliminary Foot - #1 03/31/21 14:55 C.difficile Toxin B Gene (PCR) - Final Stool - Stool Aspirate 03/30/21 15:00 Gram Stain - Final Other Source Wound Culture - Preliminary Strep agalactiae - (group b) 03/30/21 14:25 Blood Culture - Preliminary Blood NEGATIVE TO DATE 03/30/21 14:14 Blood Culture - Preliminary Blood NEGATIVE TO DATE A&P Assessment and plan (1) Diabetic foot infection: This is a 56-year-old male with type II diabetic admitted with DKA who also has left foot ulcer which is being cared for by Dr. Vidal at the wound care clinic. Patient was noted to have subcu air on repeat CT scan with no clinical improvement noted with IV antibiotics. He underwent incision and drainage of left foot abscess yesterday. Clinically he appears better but his WBC is up to 18 K today. He continues to be afebrile Given his history of peripheral vascular disease I am concerned about ischemia to the lower extremity along with cellulitis. Unfortunately due to his creatinine CTA/peripheral angiogram could not be performed. 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
[2021-04-01 17:22] LABS: Glucose Point of Care 126 mg/dL (70-110)
[2021-04-01] MEDS: atorvastatin 40 mg Tablet 20 MG PO (22:06)
--- NOTE | 2021-04-01 22:51 | PC.NURSE ---
Nurse aide went into to do fingerstick and patient complaining he is sweaty and thinks his glucose is low. 61. Given juice and a couple requested ice cream. Will recheck.
[2021-04-02] VITALS (10 sets, daily range): BP systolic 121–184; BP diastolic 63–87; PULSE 86–102; RESP 15–20; TEMP 36.4–37; O2SAT 95–99
[2021-04-02] MEDS: heparin 5,000 unit/mL INJ 1 mL 5000 UNIT SUBCUT ×3 (04:43→21:48)
[2021-04-02] MEDS: nitroglycerin 1 gm/inch oint Pkt 0.5 INCH TOPICAL ×4 (04:44→21:50)
[2021-04-02] MEDS: cefepime 1,000 MG in sodium chloride 0.9% (plus) 50 ML 100 MG IV (05:04)
[2021-04-02 05:29] LABS: Basophils % 0.2 %; Eosinophils # 0.1 10^3/uL (0.0-0.8); Eosinophils % 0.3 %; Hematocrit 36.7 % (42.0-52.0); Hemoglobin 12.2 g/dL (11.7-16.6); Lymphocytes # 1.3 10^3/uL (0.8-4.8); Lymphocytes % 7.3 %; Mean Corpuscular HGB Conc 33.2 g/dL (30.0-36.0); Mean Corpuscular Hemoglobin 26.6 pg (28.0-34.0); Mean Corpuscular Volume 80.1 fl (80-94); Mean Platelet Volume 10.8 fL (7.4-10.4); Monocytes # 0.9 10^3/uL (0.2-0.9); Monocytes % 4.8 %; Neutrophils # 14.68 10^3/uL (1.8-7.7); Neutrophils % 81.9 %; Nucleated Red Blood Cells % 0 %; Platelet Count 285 10^3/cmm (130-400); Red Blood Count 4.58 10^6/uL (4.1-5.3); Red Cell Distribution Width 13.4 % (12.1-15.1); White Blood Count 17.9 10^3/uL (4.0-10.0)
[2021-04-02 05:53] LABS: Alanine Aminotransferase 11 U/L (0-41); Alkaline Phosphatase 95 IU/L (40-130); Anion Gap 15.8 (5-19); Aspartate Amino Transferase 24 U/L (0-40); Blood Urea Nitrogen 68 mg/dL (6-20); Carbon Dioxide 16 mmol/L (22-29); Chloride 97 mmol/L (98-107); Globulin 3.5 g/dL (1.3-4.6); Glucose 83 mg/dL (65-115); Magnesium 2.8 mg/dL (1.7-2.3); Osmolality Calculated 279 mOsm/kg (285-295); Phosphorus 4.3 mg/dL (2.5-4.5); Potassium 3.8 mmol/L (3.5-5.1); Sodium 125 mmol/L (136-145); Total Bilirubin 0.2 mg/dL (0.15-1.2); Total Protein 5.5 g/dL (6.6-8.7)
[2021-04-02 06:59] LABS: Slide Review Slide Review Perform
[2021-04-02 07:41] LABS: Glucose Point of Care 73 mg/dL (70-110)
[2021-04-02 07:41] LABS: Glucose Point of Care 65 mg/dL (70-110)
[2021-04-02] MEDS: linezolid premix 600 MG/300 ML PREMIX 300 MG IV (09:05)
[2021-04-02] MEDS: sodium chloride 0.9% 1,000 ML 75 ML IV (09:19)
[2021-04-02] MEDS: metroNIDAZOLE 500 MG Tablet PO (09:23)
[2021-04-02] MEDS: aspirin 81 mg EC Tablet PO (09:24)
[2021-04-02] MEDS: b-complex-vitamin c Tablet 1 EACH PO (09:24)
[2021-04-02] MEDS: metoprolol tartrate 25 mg Tablet 12.5 MG PO ×2 (09:24→21:47)
[2021-04-02] MEDS: pantoprazole 40 mg SDV IVP (09:24)
[2021-04-02] MEDS: amlodipine 5 mg Tablet PO (09:24)
[2021-04-02] MEDS: insulin glargine 100 units/1 mL 25 UNIT SUBCUT (09:25)
--- NOTE | 2021-04-02 09:47 | P.PN_ITS ---
Subjective Subjective: Interval history: feels better. denies foot pain. is swollen. has tea colored urine . no sob Medications: Reviewed: Yes Medication Review Details: Current Medications Acetaminophen (Acetaminophen 325 Mg Tablet) 650 mg PO Q6H PRN PRN Reason: Mild/Mod Pain Or Temp >/= 101 Last Admin: 03/31/21 20:55 Dose: 650 mg Documented by: Amlodipine Besylate (Amlodipine 5 Mg Tablet) 5 mg PO DAILY [facility] Last Admin: 04/02/21 09:24 Dose: 5 mg Documented by: Aspirin (Aspirin 81 Mg Ec Tablet) 81 mg PO DAILY [facility] Last Admin: 04/02/21 09:24 Dose: 81 mg Documented by: Atorvastatin Calcium (Atorvastatin 40 Mg Tablet) 20 mg PO BEDTIME [facility] Last Admin: 04/01/21 22:06 Dose: 20 mg Documented by: Bisacodyl (Bisacodyl 5 Mg Tablet) 10 mg PO DAILY PRN; Protocol PRN Reason: Constipation (see protocol) Dextrose (Dextrose 50% Syringe 50 Ml) 25 ml IVP ONCE PRN; Protocol PRN Reason: hypoglycemia protocol Dextrose (Dextrose 50% Syringe 50 Ml) 50 ml IVP PRN PRN; Protocol PRN Reason: hypoglycemia protocol Glucagon (Glucagon 1 Mg/Ml Inj 1 Ml) 1 mg IM ONCE PRN; Protocol PRN Reason: Adult Acute Hypoglycemia Prot Heparin Sodium (Porcine) (Heparin 5,000 Unit/Ml Inj 1 Ml) 5,000 unit SUBCUT Q8H [facility] Last Admin: 04/02/21 04:43 Dose: 5,000 unit Documented by: Hydralazine HCl (Hydralazine 20 Mg/Ml Inj 1 Ml) 10 mg IVP Q4H PRN PRN Reason: if sbp>180 Dextrose (D5w) 500 mls @ 100 mls/hr IV ONCE PRN; Protocol PRN Reason: Adult Acute Hypoglycemia Prot Linezolid (Zyvox Premix) 600 mg in 300 mls @ 300 mls/hr IV Q12H [facility]; Protocol Last Admin: 04/02/21 09:05 Dose: 300 mls/hr Documented by: Cefepime HCl 1,000 mg/ Sodium (Chloride) 50 mls @ 100 mls/hr IV Q24H [facility]; Protocol Last Infusion: 04/02/21 07:27 Dose: Infused Documented by: Sodium Chloride (Sodium Chloride 0.9%) 1,000 mls @ 75 mls/hr IV .[id number] [facility] Last Admin: 04/02/21 09:19 Dose: 75 mls/hr Documented by: Insulin Glargine (Insulin Glargine 100 Units/1 Ml) 25 unit SUBCUT BID [facility] Last Admin: 04/02/21 09:25 Dose: 25 unit Documented by: Insulin Human Lispro (Insulin Lispro 100 Unit/1 Ml) 0 unit SUBCUT TIDWM [facility]; Protocol Last Admin: 04/02/21 08:03 Dose: Not Given Documented by: Metoclopramide HCl (Metoclopramide 5 Mg/Ml Sdv 2 Ml) 10 mg IVP Q6H PRN PRN Reason: NAUSEA AND VOMITING Last Admin: 03/30/21 11:12 Dose: 10 mg Documented by: Metoprolol Tartrate (Metoprolol Tartrate 25 Mg Tablet) 12.5 mg PO BID@0900,2100 [facility] Last Admin: 04/02/21 09:24 Dose: 12.5 mg Documented by: Metronidazole (Metronidazole 500 Mg Tablet) 500 mg PO TID [facility] Last Admin: 04/02/21 09:23 Dose: 500 mg Documented by: Multivitamins (T-Kfanciv-Mutthft C Tablet) 1 each PO DAILY [facility] Last Admin: 04/02/21 09:24 Dose: 1 each Documented by: Nitroglycerin (Nitroglycerin 1 Gm/Inch Oint Pkt) 0.5 inch TOPICAL Q6H [facility] Last Admin: 04/02/21 09:36 Dose: 0.5 inch Documented by: Ondansetron HCl (Ondansetron 2 Mg/Ml Sdv 2 Ml) 4 mg IVP Q8H PRN PRN Reason: vomiting, or N/V if npo Last Admin: 03/31/21 20:55 Dose: 4 mg Documented by: Pantoprazole Sodium (Pantoprazole 40 Mg Sdv) 40 mg IVP DAILY [facility] Last Admin: 04/02/21 09:24 Dose: 40 mg Documented by: Vitals/I&O/Wt Last Vital Signs Temp 98.0 F 04/02/21 07:22 Pulse 97 04/02/21 07:22 Resp 15 04/02/21 07:22 BP 144/74 04/02/21 07:22 Pulse Ox 98 04/02/21 07:22 04/01/21 04/02/21 04/02/21 22:59 06:59 14:59 Intake Total 500 / 2195.000 200 / 2395.000 996 / 996 Output Total 880 / 1080 580 / 1660 Balance -380 / 1115.000 -380 / 735.000 996 / 996 Weight last 48 hrs Weight 2.523 kg Weight 114.124 kg Physical Exam Narrative: EXAM NARRATIVE: comfortable, NARD vss heent- nc/at, eomi neck no jvp lung cta b/l heart reg, no rub abd soft, nt, nd, + bs ext LLE > RLE edema, left foot bandaged neuro a,a, o x 3 Urinary Catheter Management: Martinez: Cath Placed During This Visit: yes Reason for Continuing Indwelling Catheter: Acute Urinary Retention or Obstruction Urinary Catheter Date of Insertion: 03/29/21 Urinary Catheter Time of Insertion: 11:18 Data : 04/02/21 04:59 04/02/21 04:59 Micro: Microbiology 03/30/21 15:00 Anaerobic Culture - Preliminary Foot - #1 03/31/21 14:55 C.difficile Toxin B Gene (PCR) - Final Stool - Stool Aspirate 03/30/21 15:00 Gram Stain - Final Other Source Wound Culture - Preliminary Strep agalactiae - (group b) A&P Assessment and plan (1) Acute renal failure superimposed on stage 3b chronic kidney disease: 56 yr old male 1. ALESIA- likely from PHI, dm infection -imaging w/o hydronephrosis -low ur na -ua w/ blood, prot, ketone- -bp high- swollen- restart lasix w/o arianne-i - cr antoinette w/ lasix -monitor for AIN- though less likely -will start bicarb drip 2. hyponatremia-? likely from alesia and low ur na- monitor w/ lasix 3. met acidosis- normal gluc, lactate improved- likely from infection, ALESIA in DM -is improving 4. DM- gluc control per medicine 5. DM foot OM- renal dose abx per medicine -WBC remains 18 6. HTN - avoid ARB/ ARIANNE-I/ ALDACTONE w/ ALESIA 8. hgb ok seen and examined w/ RN- telehealth visit -time spent 30 minutes Status: Acute Plan as above Attestations Medical Necessity Statement*: alesia, edema, dm OM Time Spent in Patient Care: 16 - 35 minutes (>than 50% of time spent in counselling and/or direct pt care on unit) . 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
[2021-04-02 12:27] LABS: Glucose Point of Care 155 mg/dL (70-110)
[2021-04-02 12:48] LABS: Glucose Point of Care 152 mg/dL (70-110)
--- NOTE | 2021-04-02 13:12 | P.PN_ITS ---
Subjective Subjective: Interval history: Afebrile, leukocytosis trending down, creatinine worsening hyponatremia cause nonoliguric, 03/30 culture showing strep agalactiae, C. difficile negative No anaerobic preliminary growth will discontinue Flagyl Discontinue linezolid Vitals/I&O/Wt Last Vital Signs Temp 97.5 F L 04/02/21 12:00 Pulse 98 04/02/21 12:00 Resp 16 04/02/21 12:00 BP 184/87 04/02/21 12:00 Pulse Ox 98 04/02/21 12:00 04/01/21 04/02/21 04/02/21 22:59 06:59 14:59 Intake Total 500 / 2195.000 200 / 2395.000 1351 / 1351 Output Total 880 / 1080 580 / 1660 Balance -380 / 1115.000 -380 / 521.350 3157 / 1351 Weight last 48 hrs Weight 2.523 kg Weight 114.124 kg Physical Exam Narrative: EXAM NARRATIVE: S1, S2 Edema of arms Nonfocal neuro exam Saturating well on room air Left leg swollen as compared to right Left leg has dressing S1, S2 No audible stridor or wheezing Tea colored urine Urinary Catheter Management: Martinez: Cath Placed During This Visit: yes Reason for Continuing Indwelling Catheter: Acute Urinary Retention or Obstruction Urinary Catheter Date of Insertion: 03/29/21 Urinary Catheter Time of Insertion: 11:18 Data : 04/02/21 04:59 04/02/21 04:59 Micro: Microbiology 03/30/21 15:00 Anaerobic Culture - Preliminary Foot - #1 03/31/21 14:55 C.difficile Toxin B Gene (PCR) - Final Stool - Stool Aspirate 03/30/21 15:00 Gram Stain - Final Other Source Wound Culture - Preliminary Strep agalactiae - (group b) A&P Assessment and plan (1) Peripheral arterial disease: Status: Acute (2) Hyperosmolar hyperglycemic state (HHS): Status: Acute (3) Essential hypertension: Status: Acute (4) Diabetic foot infection: Status: Acute (5) Contrast dye induced nephropathy: Status: Acute Plan Hyperglycemia: Improved Electrolyte imbalance: Improving Hypokalemia: Improved Diabetic foot ulcer status post incision and drainage 03/30 Strep atelectatic a We will discontinue linezolid and metronidazole, C. 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
[2021-04-02] MEDS: insulin lispro 100 unit/1 mL SUBCUT ×2 (13:21→17:17)
--- NOTE | 2021-04-02 13:50 | P.PN_ITS ---
Subjective Subjective: Interval history: Patient denies any nausea or vomiting, tolerating regular diet. Overall he states that he feels better, denies significant left lower extremity pain. Jenn swenson has been afebrile Vitals/I&O/Wt Last Vital Signs Temp 97.5 F L 04/02/21 12:00 Pulse 98 04/02/21 12:00 Resp 16 04/02/21 12:00 BP 184/87 04/02/21 12:00 Pulse Ox 98 04/02/21 12:00 04/01/21 04/02/21 04/02/21 22:59 06:59 14:59 Intake Total 500 / 2395.000 200 / 2395.000 1706 / 1706 Output Total 880 / 1660 580 / 1660 Balance -380 / 735.000 -380 / 192.203 1263 / 1706 Weight last 48 hrs Weight 5 lb 9 oz Weight 251 lb 9.6 oz Physical Exam Narrative: EXAM NARRATIVE: Left foot: Edema appears to be improved, left foot and ankle is warm to touch, ecchymosis of the skin around the incision, packings were partially removed today, Martine drain in place Urinary Catheter Management: Martinez: Cath Placed During This Visit: yes Reason for Continuing Indwelling Catheter: Acute Urinary Retention or Obstruction Urinary Catheter Date of Insertion: 03/29/21 Urinary Catheter Time of Insertion: 11:18 Data : 04/03/21 05:21 04/03/21 05:21 Micro: Microbiology 03/30/21 15:00 Gram Stain - Final Other Source Wound Culture - Final Strep agalactiae - (group b) 03/30/21 15:00 Anaerobic Culture - Preliminary Foot - #1 03/31/21 14:55 C.difficile Toxin B Gene (PCR) - Final Stool - Stool Aspirate A&P Assessment and plan (1) Diabetic foot infection: This is a 56-year-old male with type II diabetic admitted with DKA who also has left foot ulcer which is being cared for by Dr. Vidal at the wound care clinic. Patient was noted to have subcu air on repeat CT scan with no clinical improvement noted with IV antibiotics. He underwent incision and drainage of left foot abscess yesterday. Clinically he appears better but his WBC is up to 18 K today. He continues to be afebrile Given his history of peripheral vascular disease I am concerned about ischemia to the lower extremity along with cellulitis. Unfortunately due to his creatinine CTA/peripheral angiogram could not be performed. 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
[2021-04-02 14:11] LABS: Creatine Phosphokinase 39 U/L (39-308)
[2021-04-02 17:26] LABS: Glucose Point of Care 154 mg/dL (70-110)
[2021-04-02] MEDS: insulin glargine 100 units/1 mL 20 UNIT SUBCUT (18:29)
[2021-04-02] MEDS: atorvastatin 40 mg Tablet 20 MG PO (21:47)
[2021-04-03] VITALS (8 sets, daily range): BP systolic 102–150; BP diastolic 45–81; PULSE 78–102; RESP 18–20; TEMP 36.1–37.2; O2SAT 96–98
[2021-04-03] MEDS: sodium chloride 0.9% 1,000 ML 75 ML IV (01:05)
[2021-04-03 05:41] LABS: Basophils % 0.2 %; Eosinophils # 0.1 10^3/uL (0.0-0.8); Eosinophils % 0.4 %; Hematocrit 35.6 % (42.0-52.0); Hemoglobin 11.6 g/dL (11.7-16.6); Lymphocytes # 1.1 10^3/uL (0.8-4.8); Lymphocytes % 6.3 %; Mean Corpuscular HGB Conc 32.6 g/dL (30.0-36.0); Mean Corpuscular Hemoglobin 26.7 pg (28.0-34.0); Mean Platelet Volume 10.8 fL (7.4-10.4); Monocytes % 5.7 %; Neutrophils # 14.63 10^3/uL (1.8-7.7); Neutrophils % 80.9 %; Nucleated Red Blood Cells % 0 %; Platelet Count 330 10^3/cmm (130-400); Red Blood Count 4.34 10^6/uL (4.1-5.3); Red Cell Distribution Width 13.5 % (12.1-15.1); White Blood Count 18.1 10^3/uL (4.0-10.0)
[2021-04-03 05:58] LABS: Alanine Aminotransferase 13 U/L (0-41); Alkaline Phosphatase 94 IU/L (40-130); Aspartate Amino Transferase 24 U/L (0-40); Blood Urea Nitrogen 70 mg/dL (6-20); Calcium 6.9 mg/dL (8.5-10.5); Carbon Dioxide 15 mmol/L (22-29); Chloride 96 mmol/L (98-107); Globulin 3.5 g/dL (1.3-4.6); Glomerular Filtration Rate 16.4 mL/min (90-130); Glucose 114 mg/dL (65-115); Magnesium 2.9 mg/dL (1.7-2.3); Osmolality Calculated 277 mOsm/kg (285-295); Sodium 123 mmol/L (136-145); Total Bilirubin 0.2 mg/dL (0.15-1.2); Total Protein 5.5 g/dL (6.6-8.7)
[2021-04-03 06:13] LABS: Slide Review Slide Review Perform
[2021-04-03 06:37] LABS: Glucose Point of Care 115 mg/dL (70-110)
[2021-04-03] MEDS: heparin 5,000 unit/mL INJ 1 mL 5000 UNIT SUBCUT ×3 (06:45→20:48)
[2021-04-03] MEDS: cefepime 1,000 MG in sodium chloride 0.9% (plus) 50 ML 100 MG IV (06:45)
[2021-04-03] MEDS: nitroglycerin 1 gm/inch oint Pkt 0.5 INCH TOPICAL ×3 (06:48→18:45)
[2021-04-03] MEDS: b-complex-vitamin c Tablet 1 EACH PO (09:20)
[2021-04-03] MEDS: aspirin 81 mg EC Tablet PO (09:20)
[2021-04-03] MEDS: metoprolol tartrate 25 mg Tablet 12.5 MG PO ×2 (09:20→20:48)
[2021-04-03] MEDS: insulin glargine 100 units/1 mL 20 UNIT SUBCUT ×2 (09:21→18:44)
[2021-04-03] MEDS: amlodipine 5 mg Tablet PO (09:21)
--- NOTE | 2021-04-03 09:57 | PM.PN ---
Subjective Subjective: Interval history: feels better. is drinking a lot of fluids Medications: Reviewed: Yes Medication Review Details: Current Medications Acetaminophen (Acetaminophen 325 Mg Tablet) 650 mg PO Q6H PRN PRN Reason: Mild/Mod Pain Or Temp >/= 101 Last Admin: 03/31/21 20:55 Dose: 650 mg Documented by: Amlodipine Besylate (Amlodipine 5 Mg Tablet) 5 mg PO DAILY [facility] Last Admin: 04/03/21 09:21 Dose: 5 mg Documented by: Aspirin (Aspirin 81 Mg Ec Tablet) 81 mg PO DAILY [facility] Last Admin: 04/03/21 09:20 Dose: 81 mg Documented by: Atorvastatin Calcium (Atorvastatin 40 Mg Tablet) 20 mg PO BEDTIME [facility] Last Admin: 04/02/21 21:47 Dose: 20 mg Documented by: Bisacodyl (Bisacodyl 5 Mg Tablet) 10 mg PO DAILY PRN; Protocol PRN Reason: Constipation (see protocol) Dextrose (Dextrose 50% Syringe 50 Ml) 25 ml IVP ONCE PRN; Protocol PRN Reason: hypoglycemia protocol Dextrose (Dextrose 50% Syringe 50 Ml) 50 ml IVP PRN PRN; Protocol PRN Reason: hypoglycemia protocol Glucagon (Glucagon 1 Mg/Ml Inj 1 Ml) 1 mg IM ONCE PRN; Protocol PRN Reason: Adult Acute Hypoglycemia Prot Heparin Sodium (Porcine) (Heparin 5,000 Unit/Ml Inj 1 Ml) 5,000 unit SUBCUT Q8H [facility] Last Admin: 04/03/21 06:45 Dose: 5,000 unit Documented by: Hydralazine HCl (Hydralazine 20 Mg/Ml Inj 1 Ml) 10 mg IVP Q4H PRN PRN Reason: if sbp>180 Dextrose (D5w) 500 mls @ 100 mls/hr IV ONCE PRN; Protocol PRN Reason: Adult Acute Hypoglycemia Prot Cefepime HCl 1,000 mg/ Sodium (Chloride) 50 mls @ 100 mls/hr IV Q24H [facility]; Protocol Last Infusion: 04/03/21 07:36 Dose: Infused Documented by: Sodium Chloride (Sodium Chloride 0.9%) 1,000 mls @ 75 mls/hr IV .[id number] [facility] Last Admin: 04/03/21 01:05 Dose: 75 mls/hr Documented by: Insulin Glargine (Insulin Glargine 100 Units/1 Ml) 20 unit SUBCUT BID [facility] Last Admin: 04/03/21 09:21 Dose: 20 unit Documented by: Insulin Human Lispro (Insulin Lispro 100 Unit/1 Ml) 0 unit SUBCUT TIDWM [facility]; Protocol Last Admin: 04/03/21 07:14 Dose: Not Given Documented by: Metoclopramide HCl (Metoclopramide 5 Mg/Ml Sdv 2 Ml) 10 mg IVP Q6H PRN PRN Reason: NAUSEA AND VOMITING Last Admin: 03/30/21 11:12 Dose: 10 mg Documented by: Metoprolol Tartrate (Metoprolol Tartrate 25 Mg Tablet) 12.5 mg PO BID@0900,2100 [facility] Last Admin: 04/03/21 09:20 Dose: 12.5 mg Documented by: Multivitamins (O-Kdlcpyy-Gfnibdz C Tablet) 1 each PO DAILY [facility] Last Admin: 04/03/21 09:20 Dose: 1 each Documented by: Nitroglycerin (Nitroglycerin 1 Gm/Inch Oint Pkt) 0.5 inch TOPICAL Q6H [facility] Last Admin: 04/03/21 06:48 Dose: 0.5 inch Documented by: Ondansetron HCl (Ondansetron 2 Mg/Ml Sdv 2 Ml) 4 mg IVP Q8H PRN PRN Reason: vomiting, or N/V if npo Last Admin: 03/31/21 20:55 Dose: 4 mg Documented by: Pantoprazole Sodium (Pantoprazole 40 Mg Sdv) 40 mg IVP DAILY [facility] Last Admin: 04/02/21 09:24 Dose: 40 mg Documented by: Vitals/I&O/Wt Last Vital Signs Temp 97.9 F 04/03/21 08:00 Pulse 84 04/03/21 08:00 Resp 18 04/03/21 08:00 BP 145/75 04/03/21 08:00 Pulse Ox 97 04/03/21 08:00 04/02/21 04/03/21 04/03/21 22:59 06:59 14:59 Intake Total 360 / 2066 893.75 / 2959.75 250 / 250 Output Total 500 / 500 200 / 700 Balance -140 / 1566 693.75 / 2259.75 250 / 250 Weight last 48 hrs Weight 120.656 kg Physical Exam Narrative: EXAM NARRATIVE: comfortable, NARD vss heent- nc/at, eomi neck no jvp lung cta b/l heart reg, no rub abd soft, nt, nd, + bs ext LLE > RLE edema, left foot bandaged neuro a,a, o x 3 Urinary Catheter Management: Martinez: Cath Placed During This Visit: yes Reason for Continuing Indwelling Catheter: Acute Urinary Retention or Obstruction Urinary Catheter Date of Insertion: 03/29/21 Urinary Catheter Time of Insertion: 11:18 Data : 04/03/21 05:21 04/03/21 05:21 Micro: Microbiology 03/30/21 15:00 Anaerobic Culture - Preliminary Foot - #1 03/30/21 15:00 Gram Stain - Final Other Source Wound Culture - Final Strep agalactiae - (group b) A&P Assessment and plan (1) Acute renal failure superimposed on stage 3b chronic kidney disease: 56 yr old male 1. ALESIA- likely from PHI, dm infection -imaging w/o hydronephrosis -low ur na -ua w/ blood, prot, ketone- - cr hopefully stabilized -monitor for AIN- though less likely -phos binder 2. hyponatremia-? likely from alesia, diuretics, and fluids- monitor off all of above and fluid restriction -salt tabs -htn goes against adrenal insuf -normal tsh 3. met acidosis- normal gluc, lactate improved- likely from infection, ALESIA in DM -is stable sodium bicarb tabs 4. DM- gluc control per medicine 5. DM foot OM- renal dose abx per medicine -WBC remains 18 6. HTN - avoid ARB/ ARIANNE-I/ ALDACTONE w/ ALESIA -improving 7. hgb ok 8. replace vit d seen and examined w/ RN- telehealth visit -time spent 30 minutes Status: Acute Plan as above Attestations Medical Necessity Statement*: alesia, hyponatremia, met acidosis Time Spent in Patient Care: 16 - 35 minutes (>than 50% of time spent in counselling and/or direct pt care on unit). Coding Level of Care Code Acute Binding Machine Operator for [facility] Diagnoses Acute renal failure superimposed on stage 3b chronic kidney disease N17.9; N18.32
[2021-04-03] MEDS: ergocalciferol (vitamin D2) 50,000 Unit Capsule 50000 UNIT PO (11:22)
[2021-04-03] MEDS: pantoprazole 40 mg SDV IVP (11:22)
[2021-04-03] MEDS: vancomycin 1,500 MG/300 ML PIGGYBACK 200 MG IV (13:11)
[2021-04-03 13:24] LABS: Glucose Point of Care 189 mg/dL (70-110)
--- NOTE | 2021-04-03 14:30 | MR_ITS ---
WS: [id number] MRI OF THE LEFT FOOT WITHOUT GADOLINIUM ENHANCEMENT. INDICATION: Left foot abscess. Osteomyelitis. TECHNIQUE: MRI of the left foot without gadolinium enhancement. Axial T1 and T2 coronal T2 PD sagitta l T1 and STIR imaging. FINDINGS: Comparison CT March 30, 2021 Again seen is extensive subcutaneous edema and emphysema within the midfoot and forefoot. Intertarsal edema. Soft tissue ulceration along the lateral fifth proximal metatarsal base. This extends down to the deep soft tissues and bony surface. Additional area of ulceration involving the dorsal subcutane ous soft tissues extending down to the at the level of the fourth metatarsal. Associated dressing in this area. Small fistulous tract extends to the extensor retinaculum. Diffuse heterogeneous edema inv olving the extensor soft tissues with intertarsal extension. No well-defined drainable abscess or flu id collection. Diffuse signal abnormality with replacement of the normal fatty bone marrow signal compatible with os teomyelitis involving the base of the fifth metatarsal with bony destruction in this area. This exten ds into the fifth metatarsal shaft. Additional similar-appearing signal abnormality with associated i ntraosseous gas involving the second third and fourth metatarsal bases extending into the metatarsal shafts compatible with emphysematous osteomyelitis.. Metatarsal heads appear relatively spared. In addition, involvement of the medial, intermediate, and lateral cuneiforms, navicular, and cuboid. Bone marrow signal in the talus is normal. Bone marrow signal in the calcaneus is normal. Normal tibi otalar joint. Small amount of degenerative edema involving the talocalcaneal articulation. Incidental degenerative cyst involving the mid calcaneus. MR/MR foot LT wo con* [id number] IMPRESSION: 1. Diffuse soft tissue infection and cellulitis involving the left foot extend ing into the deep soft tissues and intertarsal compartments. Diffuse involvemen t of the extensor and flexor retinaculum and associated compartments. 2. No well-defined drainable fluid collection. 3. Replacement of the normal bone marrow signal compatible with osteomyelitis worse involving the base of fifth metatarsal with bony destruction. 4. Evidence of emphysematous osteomyelitis involving the second third and four th metatarsal extending into the metatarsal shafts. 5. Metatarsal heads appear relatively spared. First metatarsal appears normal. 6. Evidence of emphysematous osteomyelitis involving the medial, intermediate, and lateral cuneiforms, cuboid, and navicular. Notified Woodrow Metzger MD at 04/03/2021 4:06 PM.
--- NOTE | 2021-04-03 17:17 | XR_ITS ---
WS: [id number] LEFT FOOT: 3 VIEW(S) TECHNIQUE: AP, oblique and lateral. HISTORY: Soft tissue infection COMPARISON: 03/29/2021 Changes in the soft tissue probably from recent debridement over the mid and lateral LEFT foot. There is also bandage material overlying the mid metatarsals. There are numerous foci of air along the lat eral foot and ankle and extending over the midfoot. Again noted are lucencies within several of the p roximal metatarsals which were better described on a prior MRI for osteomyelitis. No pathological fra cture. Normal tarsal/metatarsal alignment. Soft tissue calcifications. XR/XR foot LT min 3V* [id number] IMPRESSION: 1. Cellulitis and infectious process within the soft tissues centered over the midfoot and extending laterally to the metatarsals over the ankle. Increased a ir suggesting interval debridement along with the extensive soft tissue infecti on. The soft tissue involvement appears slightly improved with less edema since 03/29/2020. 2. Lucency in several of the proximal metatarsals consistent with osteomyeliti s. Osteomyelitis was better described on MRI from 04/03/2021.
--- NOTE | 2021-04-03 17:19 | P.PN_ITS ---
Subjective Subjective: Interval history: Patient denies any nausea or vomiting, tolerating regular diet. Overall he states that he feels better, denies significant left lower extremity pain. Jenn swenson has been afebrile Vitals/I&O/Wt Last Vital Signs Temp 97.1 F L 04/03/21 12:00 Pulse 95 04/03/21 14:00 Resp 18 04/03/21 12:00 BP 150/63 04/03/21 12:00 Pulse Ox 97 04/03/21 12:00 04/03/21 04/03/21 04/03/21 06:59 14:59 22:59 Intake Total 893.75 / 2959.75 610 / 610 Output Total 200 / 700 Balance 693.75 / 2259.75 610 / 610 Weight last 48 hrs Weight 266 lb Physical Exam Narrative: EXAM NARRATIVE: Left foot: Edema appears to be improved, left foot and ankle is warm to touch, ecchymosis of the skin around the incision, packings were partially removed today, [place] drain in place Urinary Catheter Management: Martinez: Cath Placed During This Visit: yes Reason for Continuing Indwelling Catheter: Acute Urinary Retention or Obstruction Urinary Catheter Date of Insertion: 03/29/21 Urinary Catheter Time of Insertion: 11:18 Data : 04/03/21 05:21 04/03/21 05:21 Micro: Microbiology 03/30/21 15:00 Anaerobic Culture - Preliminary Foot - #1 03/30/21 15:00 Gram Stain - Final Other Source Wound Culture - Final Strep agalactiae - (group b) A&P Assessment and plan (1) Diabetic foot infection: This is a 56-year-old male with type II diabetic admitted with DKA who also has left foot ulcer which is being cared for by Dr. Vidal at the wound care clinic. Patient had undergone incision and drainage 4 days ago. While patient had remained afebrile, his WBC continued to be elevated at 18 K MRI obtained showing emphysematous osteomyelitis and second third and fourth left metatarsal and osteomyelitis of fifth metatarsal with emphysematous osteomyelitis of medial, intermediate and lateral cuneiform, cuboid and navicular. Discussed the findings with the patient and his family about treatment options and the high likelihood of need for amputation since he also has significant peripheral vascular disease. He has inadequate perfusion but revascularization could not be attempted due to ALESIA. Will obtain opinion from Dr. Morrow, flight deck officer and Dr. Gallegos infectious disease specialist. I also spoke to Dr. Shaffer his membership correspondent who will review the images and see the patient tomorrow. Status: Acute Attestations Medical Necessity Statement*: As per primary Coding Level of Care Code Acute Stick Puller for [facility] Diagnoses Diabetic foot infection E11.628; L08.9
[2021-04-03 17:32] LABS: Glucose Point of Care 192 mg/dL (70-110)
[2021-04-03 18:05] LABS: Anion Gap 19.2 (5-19); Blood Urea Nitrogen 71 mg/dL (6-20); Calcium 7.7 mg/dL (8.5-10.5); Carbon Dioxide 13 mmol/L (22-29); Chloride 95 mmol/L (98-107); Glucose 164 mg/dL (65-115); Osmolality Calculated 280 mOsm/kg (285-295); Potassium 4.2 mmol/L (3.5-5.1); Sodium 123 mmol/L (136-145)
--- NOTE | 2021-04-03 18:21 | PM.PN ---
Subjective Subjective: Interval history: This morning MRI was requested , creatinine 3.8, afebrile, emphysematous osteomyelitis, Dr. Limon evaluated the patient today at that time MRI findings were discussed with him, patient requested to speak with Dr. Shaffer, Dr. Shaffer to see the patient in morning Today I have started clindamycin, imipenem and linezolid for persistent leukocytosis and emphysematous osteomyelitis His anaerobic cultures have been negative, With his ALESIA, he was receiving metronidazole, cefepime and linezolid Case discussed with Dr. Brenner, she will evaluate the patient tomorrow morning, above mentioned antibiotics discussed with her in detail Vitals/I&O/Wt Last Vital Signs Temp 97.0 F L 04/03/21 16:00 Pulse 81 04/03/21 16:00 Resp 18 04/03/21 16:00 BP 138/65 04/03/21 16:00 Pulse Ox 98 04/03/21 16:00 04/03/21 04/03/21 04/03/21 06:59 14:59 22:59 Intake Total 893.75 / 2959.75 610 / 610 Output Total 200 / 700 Balance 693.75 / 2259.75 610 / 610 Weight last 48 hrs Weight 120.656 kg Physical Exam Narrative: EXAM NARRATIVE: Patient clinically is doing better, laying supine On room air No active distress Patient left foot is covered with dressing [place] drain in place, Ecchymosis around the suture site Abdomen soft, nonfocal neuro exam EOMI, PERRLA S1, S2 Urinary Catheter Management: Martinez: Cath Placed During This Visit: yes Reason for Continuing Indwelling Catheter: Acute Urinary Retention or Obstruction Urinary Catheter Date of Insertion: 03/29/21 Urinary Catheter Time of Insertion: 11:18 Data : 04/03/21 05:21 04/03/21 17:37 Micro: Microbiology 03/30/21 15:00 Anaerobic Culture - Preliminary Foot - #1 03/30/21 15:00 Gram Stain - Final Other Source Wound Culture - Final Strep agalactiae - (group b) A&P Assessment and plan (1) Osteomyelitis: Status: Acute (2) Contrast dye induced nephropathy: Status: Acute (3) Hyperosmolar hyperglycemic state (HHS): Status: Acute (4) Acute renal failure superimposed on stage 3b chronic kidney disease: Status: Acute (5) Diabetes: Status: Acute (6) Essential hypertension: Status: Acute (7) Diabetic foot infection: Status: Acute (8) Peripheral arterial disease: Status: Acute Plan Emphysematous osteomyelitis Afebrile however persistent leukocytosis for last 72 hours Bad distal peripheral vascular disease Not a candidate for aortic angiogram with runoff Escalated antibiotics to clindamycin, linezolid and imipenem Dr. Shaffer and Dr. Brenner will evaluate the patient in the morning Previous cultures positive for Morganella, strep atelectatic, staph and Enterococcus His cultures after debridement showing strep atelectatic, anaerobic cultures negative however these cultures were taken while he was on antibiotic Patient will need evaluation for amputation, patient has triphasic flow in left DPA, biphasic WAREHOUSE PULLER, triphasic popliteal no active blockage, there is no role of angioplasty because of adequate flow evident on duplex scan of left leg Contrast-induced nephropathy Nonoliguric Appreciate nephro recommendations, added bicarb supplementation Worsening acidosis related to uremia High anion gap secondary to uremia Hyperglycemia Target blood glucose range 1 40-1 80, hemoglobin A1c 13 No further episodes of hypoglycemia Diarrhea: Improved, C. difficile panel negative Full code Consistent carb diet DVT prophylaxis Heparin Attestations Medical Necessity Statement*: Continue medical management Time Spent in Patient Care: 30 minutes Coding Level of Care Code Acute Photoengraver Apprentice for [facility] Diagnoses Osteomyelitis M86.9 Contrast dye induced nephropathy N14.1; T50.8X5A Hyperosmolar hyperglycemic state (HHS) E11.00; E11.65 Acute renal failure superimposed on stage 3b chronic kidney disease N17.9; N18.32 Diabetes E11.9 Essential hypertension I10 Diabetic foot infection E11.628; L08.9 Peripheral arterial disease I73.9
[2021-04-03] MEDS: insulin lispro 100 unit/1 mL SUBCUT (18:45)
[2021-04-03] MEDS: clindamycin 900 MG/50 ML PREMIX 100 MG IV (20:46)
[2021-04-03] MEDS: atorvastatin 40 mg Tablet 20 MG PO (20:47)
[2021-04-03] MEDS: sodium bicarbonate 650 mg Tablet PO (20:47)
[2021-04-03 21:16] LABS: Glucose Point of Care 207 mg/dL (70-110)
[2021-04-03] MEDS: linezolid premix 600 MG/300 ML PREMIX 300 MG IV (22:54)
[2021-04-04] VITALS: BP 126/70; PULSE 100; RESP 18; O2SAT 94
[2021-04-04] MEDS: acetaminophen 325 mg Tablet 650 MG PO ×3 (00:14→22:10)
[2021-04-04 04:00] VITALS: BP 132/74; PULSE 99; O2SAT 94
[2021-04-04] MEDS: heparin 5,000 unit/mL INJ 1 mL 5000 UNIT SUBCUT ×2 (05:29→14:57)
[2021-04-04] MEDS: clindamycin 900 MG/50 ML PREMIX 100 MG IV (05:30)
[2021-04-04] MEDS: nitroglycerin 1 gm/inch oint Pkt 0.5 INCH TOPICAL ×4 (05:31→23:53)
[2021-04-04 06:49] LABS: Glucose Point of Care 268 mg/dL (70-110)
[2021-04-04 07:15] LABS: Basophils % 0.3 %; Eosinophils # 0.1 10^3/uL (0.0-0.8); Eosinophils % 0.4 %; Hematocrit 35.3 % (42.0-52.0); Hemoglobin 10.9 g/dL (11.7-16.6); Lymphocytes # 1.3 10^3/uL (0.8-4.8); Lymphocytes % 9.3 %; Mean Corpuscular HGB Conc 30.9 g/dL (30.0-36.0); Mean Corpuscular Hemoglobin 27.1 pg (28.0-34.0); Mean Corpuscular Volume 87.8 fl (80-94); Mean Platelet Volume 9.2 fL (7.4-10.4); Monocytes # 0.9 10^3/uL (0.2-0.9); Monocytes % 6.2 %; Neutrophils # 10.88 10^3/uL (1.8-7.7); Neutrophils % 78.7 %; Nucleated Red Blood Cells % 0 %; Platelet Count 283 10^3/cmm (130-400); Red Blood Count 4.02 10^6/uL (4.1-5.3); Red Cell Distribution Width 13.7 % (12.1-15.1); White Blood Count 13.8 10^3/uL (4.0-10.0)
[2021-04-04 07:20] LABS: Anion Gap 19.1 (5-19); Blood Urea Nitrogen 71 mg/dL (6-20); Carbon Dioxide 13 mmol/L (22-29); Chloride 95 mmol/L (98-107); Glomerular Filtration Rate 15.5 mL/min (90-130); Glucose 238 mg/dL (65-115); Osmolality Calculated 285 mOsm/kg (285-295); Potassium 4.1 mmol/L (3.5-5.1); Sodium 123 mmol/L (136-145)
[2021-04-04 07:23] LABS: C Reactive Protein 101.8 mg/L (0.0-4.9)
[2021-04-04 07:30] LABS: Erythrocyte Sedimentation Rate 64 mm/hr (0-10)
[2021-04-04 07:43] LABS: Slide Review Slide Review Perform
--- NOTE | 2021-04-04 07:49 | PM.CONSULT ---
Providers/Reason For Consult Consulting Physician/Specialty*: Trace Shaffer D.P.M. Reason for Consult*: Emphysematous osteomyelitis Attending Physician: Woodrow Metzger MD Primary Care Provider: MARK Kilpatrick History of Present Illness History of Present Illness Martir Kruger is a 56 year old diabetic male presented to the emergency department with nausea and vomiting and admitted for DKA. Patient has had a recalcitrant ulceration to his left foot. 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 Meeting with the patient this morning he informs me that overnight he decided to move forward with below-knee amputation is his best treatment option. Review of Systems General: Reports: 10 or more systems reviewed and unremarkable except in HPI and below Const: Denies: fever(s) or chills Card: Denies: chest pain or palpitations Resp: Denies: productive cough GI: Denies: abdominal pain, nausea or vomiting : Denies: flank pain Musc: Reports: extremity swelling, joint pain, joint stiffness, limited range of motion and deformity Skin/Breast: Reports: erythema, sores, nail changes and change in hair; Denies: rash Neuro: Reports: numbness in extremities, sensory changes and difficulty walking Psych: Denies: suicidal ideation David/Lymph: Denies: easy bruising Medications/Allergies Home Medications Medication Instructions Recorded Confirmed Last Taken Type aspirin 81 mg tablet,delayed 81 mg PO DAILY 06/16/19 03/26/21 09/21/20 History release (Adult Aspirin Regimen) flash glucose sensor (FreeStyle #1 ea 08/21/20 03/26/21 Unknown Rx Julius 2 Sensor) exenatide (Byetta) 10 mcg SUBCUT DAILY 09/21/20 03/26/21 09/21/20 History albuterol sulfate 90 mcg/actuation 1 inh INHALATION QID PRN #8.5 g 09/23/20 03/26/21 Unknown Rx aerosol inhaler empagliflozin 10 mg tablet 10 mg PO DAILY 03/26/21 03/26/21 Unknown History (Jardiance) insulin detemir U-100 100 unit/mL 25 unit SUBCUT BID 03/26/21 03/26/21 Unknown History (3 mL) subcutaneous pen (Levemir FlexTouch U-100 Insulin) insulin lispro 100 unit/mL See Rx Instructions .ROUTE .COMPLEX 03/26/21 03/26/21 Unknown History subcutaneous pen (Humalog KwikPen (U-100) Insulin) lisinopril 10 mg tablet 10 mg PO DAILY 03/26/21 03/26/21 Unknown History Allergies Allergy/AdvReac Type Severity Reaction Status Date / Time No Known Allergies Allergy Verified 03/26/21 04:57 Current Medications Generic Name Dose Route Start Last Admin Trade Name Roseanne PRN Reason Stop Dose Admin Acetaminophen 650 mg 03/25/21 22:42 04/04/21 00:14 Acetaminophen 325 Mg Tablet PO 650 mg Q6H PRN Administration Mild/Mod Pain Or Temp >/= 101 Amlodipine Besylate 5 mg 04/01/21 09:00 04/03/21 09:21 Amlodipine 5 Mg Tablet PO 5 mg DAILY MANUELA Administration Aspirin 81 mg 03/26/21 09:00 04/03/21 09:20 Aspirin 81 Mg Ec Tablet PO 81 mg DAILY MANUELA Administration Atorvastatin Calcium 20 mg 03/26/21 21:00 04/03/21 20:47 Atorvastatin 40 Mg Tablet PO 20 mg BEDTIME MANUELA Administration Ergocalciferol 50,000 unit 04/03/21 10:15 04/03/21 11:22 Ergocalciferol (Vitamin D2) 50,000 Unit Capsule PO 50,000 unit Q7D MANUELA Administration Heparin Sodium (Porcine) 5,000 unit 03/31/21 21:00 04/04/21 05:29 Heparin 5,000 Unit/Ml Inj 1 Ml SUBCUT 5,000 unit Q8H MANUELA Administration Clindamycin HCl/Dextrose 900 mg in 50 mls @ 100 mls/hr 04/03/21 18:45 04/04/21 06:32 Cleocin IV Infused Q8H MANUELA Infusion Protocol Linezolid 600 mg in 300 mls @ 300 mls/hr 04/03/21 19:00 04/04/21 00:03 Zyvox Premix IV Infused Q12H MANUELA Infusion Protocol Imipenem/Cilastatin Sodium 500 100 mls @ 200 mls/hr 04/03/21 19:00 04/03/21 22:52 mg/ Sodium Chloride IV Infused Q12H MANUELA Infusion Protocol Insulin Glargine 20 unit 04/02/21 18:00 04/03/21 18:44 Insulin Glargine 100 Units/1 Ml SUBCUT 20 unit BID MANUELA Administration Insulin Human Lispro 0 unit 03/26/21 08:00 04/03/21 18:45 Insulin Lispro 100 Unit/1 Ml SUBCUT 6 unit TIDWM MANUELA Administration Protocol Metoclopramide HCl 10 mg 03/26/21 09:57 03/30/21 11:12 Metoclopramide 5 Mg/Ml Sdv 2 Ml IVP 10 mg Q6H PRN Administration NAUSEA AND VOMITING Metoprolol Tartrate 12.5 mg 03/29/21 10:20 04/03/21 20:48 Metoprolol Tartrate 25 Mg Tablet PO 12.5 mg BID@0900,2100 MANUELA Administration Multivitamins 1 each 04/01/21 09:00 04/03/21 09:20 M-Zodyvoq-Pyjigor C Tablet PO 1 each DAILY MANUELA Administration Nitroglycerin 0.5 inch 03/30/21 10:15 04/04/21 05:31 Nitroglycerin 1 Gm/Inch Oint Pkt TOPICAL 0.5 inch Q6H MANUELA Administration Ondansetron HCl 4 mg 03/25/21 22:42 03/31/21 20:55 Ondansetron 2 Mg/Ml Sdv 2 Ml IVP 4 mg Q8H PRN Administration vomiting, or N/V if npo Pantoprazole Sodium 40 mg 03/31/21 09:00 04/03/21 11:22 Pantoprazole 40 Mg Sdv IVP 40 mg DAILY MANUELA Administration Sodium Bicarbonate 650 mg 04/03/21 15:00 04/03/21 20:47 Sodium Bicarbonate 650 Mg Tablet PO 650 mg TID MANUELA Administration PFSH Acute PFSH: Medical History (Updated 04/04/21 @ 10:00 by Trace Shaffer DPM) Acquired rearfoot varus Chronic renal impairment 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 Diabetes type 2, uncontrolled Diabetic peripheral neuropathy associated with type 2 diabetes mellitus Essential hypertension Foot abscess, left Hyperlipidemia associated with type 2 diabetes mellitus Hyperlipidemia, mixed Statin intolerance Surgical History Amputated toe of right foot secondary to osteomyelitis 4th right toe History of amputation of lesser toe History of partial amputation of toe of right foot Family History Father Diabetes Mother Diabetes Other Hypertension Social History Smoking and tobacco status: never smoked Second hand smoke exposure: No Smoking risk assessment/counseling performed?: No Alcohol intake: former Desire information about alcohol rehabilitation?: No Counseling given: No Desire information about substance/drug rehabilitation?: No Counseling given: No Adopted: No Caregiver/support person: No Lives independently: Yes Household members: spouse Housing: House Marital status: service: No Current occupational status: employed Pets and animals: Yes History of recent travel: No Current gender identity: Male Vitals/I&O/Wt Last Vital Signs Temp 98.9 F 04/03/21 20:00 Pulse 99 04/04/21 04:00 Resp 18 04/04/21 00:00 BP 132/74 04/04/21 04:00 Pulse Ox 94 04/04/21 04:00 04/03/21 04/04/21 04/04/21 22:59 06:59 14:59 Intake Total 1570 / 2180 830 / 3010 Output Total 200 / 200 670 / 870 Balance 1370 / 1980 160 / 2140 Weight last 48 hrs Weight 273 lb 4.8 oz Weight 266 lb Physical Exam Narrative: EXAM NARRATIVE: Patient is alert and oriented ?3 and in no acute distress.? The following is a focused lower extremity exam. VASCULAR: Dorsalis pedis arteries faintly palpable, posterior tibial arteries palpable bilaterally.? Capillary refill time less than 5 seconds to the distal hallux bilaterally. Calf is supple and nontender proximally and distally.? Decreased hair growth at legs and feet bilaterally.? No significant edema to the left foot. NEUROLOGICAL: Protective sensation intact 0/10 sites. DERMATOLOGICAL: Full-thickness wound probes to bone left foot subfifth metatarsal, no soft tissue crepitus, no proximal lymphangitic streaking. MUSCULOSKELETAL: Status post partial fourth ray amputation right foot.? Muscle strength is 5 out of 5 in all 3 cardinal planes to bilateral foot and ankle.? Ankle joint dorsiflexion is to neutral bilaterally.? Metatarsus abductus bilaterally right more severe than left.? Resting calcaneal stance position 1 degree varus left foot.? Ankle joint dorsiflexion is to neutral.? Muscle strength is 5-5 in all 3 cardinal planes to the bilateral foot and ankle. Urinary Catheter Management: Martinez: Cath Placed During This Visit: yes Reason for Continuing Indwelling Catheter: Acute Urinary Retention or Obstruction Urinary Catheter Date of Insertion: 03/29/21 Urinary Catheter Time of Insertion: 11:18 Data : 04/04/21 06:28 04/04/21 06:28 Micro: Microbiology 03/30/21 15:00 Anaerobic Culture - Preliminary Foot - #1 A&P Assessment and plan (1) Osteomyelitis: Status: Acute (2) Acute renal failure superimposed on stage 3b chronic kidney disease: Status: Acute (3) Peripheral arterial disease: Status: Acute (4) Diabetic peripheral neuropathy associated with type 2 diabetes mellitus: Status: Acute (5) Foot osteomyelitis, left: Status: Acute Plan 56-year-old insulin-dependent diabetic male with stage III renal failure presents with recalcitrant wound left foot. Soft tissue emphysema seen on x-ray, CT scan and MRI of the left foot show impressive emphysematous osteomyelitis that involves second metatarsal, third metatarsal, fourth metatarsal, medial cuneiform, intermediate cuneiform, lateral cuneiform, cuboid and navicular bone. Patient reports to me that he has made up his mind that he would like to proceed with below-knee amputation. I believe that this would be his best option given the extent of his emphysematous osteomyelitis involving the tarsal and metatarsal bones noted above. Patient states that he is ready to proceed with this and believes that this would provide him the more definitive control for infection and likely the quicker return to ambulatory status with the prosthesis. Moving forward I encouraged him to follow-up closely with his primary care for glycemic management, daily foot exams, concerning is his right foot metatarsus adductus. Right now he does not have any wounds to the right foot, encouraged him to utilize diabetic shoe with molded insert on the right foot to avoid complications to this limb. Coding Level of Care Code Acute Street Openings Inspector for Paula Ho Diagnoses Osteomyelitis M86.9 Acute renal failure superimposed on stage 3b chronic kidney disease N17.9; N18.32 Peripheral arterial disease I73.9 Diabetic peripheral neuropathy associated with type 2 diabetes mellitus E11.42 Foot osteomyelitis, left M86.9
[2021-04-04 08:00] VITALS: BP 160/78; PULSE 79; RESP 18; TEMP 36.7; O2SAT 97
[2021-04-04] MEDS: insulin glargine 100 units/1 mL 20 UNIT SUBCUT (08:51)
[2021-04-04] MEDS: insulin lispro 100 unit/1 mL SUBCUT ×3 (08:51→18:02)
[2021-04-04] MEDS: aspirin 81 mg EC Tablet PO (08:52)
[2021-04-04] MEDS: sodium bicarbonate 650 mg Tablet PO ×3 (08:52→20:19)
[2021-04-04] MEDS: b-complex-vitamin c Tablet 1 EACH PO (08:52)
[2021-04-04] MEDS: metoprolol tartrate 25 mg Tablet 12.5 MG PO ×2 (08:52→20:19)
[2021-04-04] MEDS: pantoprazole 40 mg SDV IVP (08:52)
[2021-04-04] MEDS: amlodipine 5 mg Tablet PO (08:52)
--- NOTE | 2021-04-04 10:30 | P.PN_ITS ---
Subjective Subjective: Interval history: This morning patient said he has made up his mind and would like to go with below-knee amputation of left leg Spoke with Dr. Shaffer and Dr. Brenner Leukocytosis improved to 13,000 Emphysematous osteomyelitis Creatinine 4.0, nonoliguric Hyperglycemia Vitals/I&O/Wt Last Vital Signs Temp 98.1 F 04/04/21 08:00 Pulse 79 04/04/21 08:00 Resp 18 04/04/21 08:00 BP 160/78 04/04/21 08:00 Pulse Ox 97 04/04/21 08:00 04/03/21 04/04/21 04/04/21 22:59 06:59 14:59 Intake Total 1570 / 2180 830 / 3010 480 / 480 Output Total 200 / 200 670 / 870 Balance 1370 / 1980 160 / 2140 480 / 480 Weight last 48 hrs Weight 123.967 kg Weight 120.656 kg Physical Exam Narrative: EXAM NARRATIVE: Patient lying comfortably in his bed patient is awake and alert Nonfocal neuro exam EOMI, PERRLA Left leg wrapped in dressing Martine drain in place Saturating well on room air Abdomen soft S1, S2 Urinary Catheter Management: Martinez: Cath Placed During This Visit: yes Reason for Continuing Indwelling Catheter: Acute Urinary Retention or Obstruction Urinary Catheter Date of Insertion: 03/29/21 Urinary Catheter Time of Insertion: 11:18 Data : 04/04/21 06:28 04/04/21 06:28 Micro: Microbiology 03/30/21 15:00 Anaerobic Culture - Preliminary Foot - #1 A&P Assessment and plan (1) Foot osteomyelitis, left: Status: Acute (2) Diabetic peripheral neuropathy associated with type 2 diabetes mellitus: Status: Acute (3) Contrast dye induced nephropathy: Status: Acute (4) Hyperosmolar hyperglycemic state (HHS): Status: Acute (5) Diabetes: Status: Acute (6) Essential hypertension: Status: Acute (7) Diabetic foot infection: Status: Acute Plan Emphysematous osteomyelitis This diagnosis carries higher mortality morbidity, patient is agreeable for below-knee amputation Below-knee amputation recommended by Dr. Shaffer, Dr. Brenner will see this patient as well Contrast-induced nephropathy, creatinine 4.0 nonoliguric Patient is experiencing bladder spasm, he wants Martinez catheter to be removed, I explained him we need accurate output of urine, he is willing to work with nursing staff to let us know every time he is using urinal, Martinez catheter can be removed today Hyperglycemia: Reluctant to escalate the dose of long-acting insulin to avoid hypoglycemia with worsening creatinine Continue sliding scale Currently on consistent carb diet We will coordinate with the team for his left BKA Currently DVT prophylaxis Heparin Hypertension: Currently on hydralazine, amlodipine, metoprolol Attestations Medical Necessity Statement*: Patient needs BKA Time Spent in Patient Care: 15 Coding Level of Care Code Acute Curriculum Coach for g Fwd Diagnoses Foot osteomyelitis, left M86.9 Diabetic peripheral neuropathy associated with type 2 diabetes mellitus E11.42 Contrast dye induced nephropathy N14.1; T50.8X5A Hyperosmolar hyperglycemic state (HHS) E11.00; E11.65 Diabetes E11.9 Essential hypertension I10 Diabetic foot infection E11.628; L08.9
[2021-04-04 11:14] LABS: Glucose Point of Care 307 mg/dL (70-110)
--- NOTE | 2021-04-04 11:30 | PM.PN ---
Subjective Subjective: Interval history: Mr. Kruger feels generally okay. Input from other team members noted, plan to have BKA in the next few days. Significant emphysematous osteomyelitis noted. Still making urine, minimal extremity edema. Remains on sodium bicarbonate for hyponatremia and acidosis. No uremic symptoms. Vitals/I&O/Wt Last Vital Signs Temp 98.1 F 04/04/21 08:00 Pulse 79 04/04/21 08:00 Resp 18 04/04/21 08:00 BP 160/78 04/04/21 08:00 Pulse Ox 97 04/04/21 08:00 04/03/21 04/04/21 04/04/21 22:59 06:59 14:59 Intake Total 1570 / 2180 830 / 3010 480 / 480 Output Total 200 / 200 670 / 870 Balance 1370 / 1980 160 / 2140 480 / 480 Weight last 48 hrs Weight 123.967 kg Weight 120.656 kg Physical Exam Narrative: EXAM NARRATIVE: Constitutional: Awake, comfortable HEENT: Wet mucosa, no jvp, non icteric Lungs: Bilaterally clear without discernible wheeze, rales in all lung zones CVS: S1 S2, no murmurs Abdo: Soft, BS ok Ext 4: foot dressed, edematous Neurological: Grossly non-focal Urinary Catheter Management: Martinez: Cath Placed During This Visit: yes Reason for Continuing Indwelling Catheter: Acute Urinary Retention or Obstruction Urinary Catheter Date of Insertion: 03/29/21 Urinary Catheter Time of Insertion: 11:18 Data : 04/04/21 06:28 04/04/21 06:28 Micro: Microbiology 03/30/21 15:00 Anaerobic Culture - Preliminary Foot - #1 A&P Assessment and plan (1) Acute renal failure superimposed on stage 3b chronic kidney disease: 1. Acute kidney injury Differential diagnosis includes contrast nephropathy, infection mediated or myelopathy, acute interstitial nephritis. Renal function is relatively stable at this time with minor fluctuation in serum creatinine. No acute indication for dialysis. Continue supportive management, Avoid usual nephrotoxic agents Dose medication for GFR less than 15 2. Chemistry Pronounced hyponatremia as well as mixed gap nongap metabolic acidosis. We will give single dose of Lasix today, as well as sodium bicarbonate. This is in part secondary to kidney damage as well. I have asked him not to go to heavy on his fluid intake and have encouraged solute intake. 3. Emphysematous osteomyelitis Pending BKA, wound care, combination antibiotics. 4. Hemodynamics Fluctuant, systolics 126-160, continue to monitor without change of antihypertensives at this time. 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
[2021-04-04] MEDS: FUROsemide 40 mg Tablet PO (11:51)
[2021-04-04 12:00] VITALS: BP 144/81; PULSE 94; RESP 18; TEMP 36.3; O2SAT 98
--- NOTE | 2021-04-04 13:26 | P.PN_ITS ---
Subjective Subjective: Interval history: Patient had talked to Dr. Shaffer today, had discussed in detail about the MRI findings with him. Dr. Stiles had evaluated his arterial duplex which showed adequate flow below the knee and therefore should be a candidate for below-knee amputation. Patient denies significant pain fevers or chills Vitals/I&O/Wt Last Vital Signs Temp 97.4 F L 04/04/21 12:00 Pulse 94 04/04/21 12:00 Resp 18 04/04/21 12:00 BP 144/81 04/04/21 12:00 Pulse Ox 98 04/04/21 12:00 04/03/21 04/04/21 04/04/21 22:59 06:59 14:59 Intake Total 1570 / 3010 830 / 3010 480 / 480 Output Total 200 / 870 670 / 870 Balance 1370 / 2140 160 / 2140 480 / 480 Weight last 48 hrs Weight 273 lb 4.8 oz Weight 266 lb Physical Exam Narrative: EXAM NARRATIVE: Left foot: Pedal edema present, erythema is improved foot is wrapped, dressings dry and intact Urinary Catheter Management: Martinez: Cath Placed During This Visit: yes Reason for Continuing Indwelling Catheter: Acute Urinary Retention or Obstruction Urinary Catheter Date of Insertion: 03/29/21 Urinary Catheter Time of Insertion: 11:18 Data : 04/04/21 06:28 04/04/21 06:28 Micro: Microbiology 03/30/21 15:00 Anaerobic Culture - Preliminary Foot - #1 A&P Assessment and plan (1) Diabetic foot infection: This is a 56-year-old male with type II diabetic admitted with DKA who also has left foot ulcer which is being cared for by Dr. Vidal at the wound care clinic. Patient had undergone incision and drainage 5 days ago. While patient had remained afebrile, and his WBC is down to 13 K. He is currently on multiple a ntibiotics. MRI obtained showing emphysematous osteomyelitis and second third and fourth left metatarsal and osteomyelitis of fifth metatarsal with emphysematous osteomyelitis of medial, intermediate and lateral cuneiform, cuboid and navicular. Discussed the findings with the patient and his family . Discussed the case with Dr. Shaffer and Dr. Brenner. Patient had a breakfast this morning and therefore I will schedule him for left below-knee amputation under general anesthesia for tomorrow at 8 AM. Type and screen Procedure, risks, benefits and alternatives have been discussed with the patient who wishes to proceed with surgery. Status: Acute Attestations Medical Necessity Statement*: As per primary Coding Level of Care Code Acute Civil Project Engineer for Paula Ho Diagnoses Diabetic foot infection E11.628; L08.9
[2021-04-04] MEDS: linezolid premix 600 MG/300 ML PREMIX 300 MG IV ×2 (14:52→23:53)
[2021-04-04 16:00] VITALS: BP 154/69; PULSE 104; RESP 18; TEMP 36.4; O2SAT 98
--- NOTE | 2021-04-04 17:08 | XRR_ITS ---
PROCEDURE INFORMATION: Exam: XR Chest Exam date and time: 04/04/2021 5:08 PM Age: 56 years old Clinical indication: Device placement; Other: Picc; Additional info: Picc placement TECHNIQUE: Imaging protocol: XR of the chest. Views: 1 view. COMPARISON: CR (CHEST, ) 03/29/2021 3:45 PM FINDINGS: Tubes, catheters and devices: Right PICC line placement with tip over the distal SVC. Lungs: Unremarkable. No consolidation. Pleural spaces: Unremarkable. No pleural effusion. No pneumothorax. Heart/Mediastinum: Calcified mediastinal lymph node. Bones/joints: Unremarkable. XR/XR chest 1V portable [id number] IMPRESSION: No acute finding.
--- NOTE | 2021-04-04 17:32 | XRR_ITS ---
PROCEDURE INFORMATION: Exam: XR Chest Exam date and time: 04/04/2021 5:32 PM Age: 56 years old Clinical indication: Device placement; Picc; Additional info: Picc line placement TECHNIQUE: Imaging protocol: XR of the chest. Views: 1 view. COMPARISON: CR (CHEST, ) 04/04/2021 5:11 PM FINDINGS: Tubes, catheters and devices: Right PICC line with tip over the cavoatrial junction. Lungs: Unremarkable. No consolidation. Pleural spaces: Unremarkable. No pleural effusion. No pneumothorax. Heart/Mediastinum: Calcified mediastinal lymph node. Bones/joints: Unremarkable. XR/XR chest 1V portable [id number] IMPRESSION: 1. Slight repositioning of the PICC line with tip over the cavoatrial junction. 2. Otherwise stable chest.
--- NOTE | 2021-04-04 17:49 | PM.CONSULT ---
Providers/Reason For Consult Consulting Physician/Specialty*: Brittny rBenner MD / Infectious Disease Reason for Consult*: emphysematous osteomyelitis Requesting Physician: Dr. Metzger Attending Physician: Woodrow Metzger MD Primary Care Provider: MARK Kilpatrick History of Present Illness History of Present Illness Martir Kruger is a 56 year old male with a past medical history of diabetes mellitus, hypertension, recurrent left lower extremity ulceration for which she has been followed on wound care on a regular basis. He was admitted at [facility] initially on March 25, 2021 for DKA. During hospital stay and course of evaluation also additionally found to have worsening left lower extremity ulceration, surrounding cellulitis. CT and then MRI showed diffuse soft tissue infection and cellulitis involving the left foot extending into the deep soft tissues and intertarsal compartments. There was diffuse involvement of the extensor and flexor retinaculum and associated compartments. Osteomyelitis was noted involving the base of the fifth metatarsal, emphysematous osteo of the second third and fourth metatarsal extending into the metatarsal shafts. 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 Patient has been on treatment with Zosyn and vancomycin with addition of clindamycin recently without any significant change. White count has fluctuated between 13-18 during course of admission. He has undergone Incision and drainage of left foot abscess measuring 3 x 4 cm on March 30 and given the findings on MRI as above is currently being planned for a possible BKA. Culture from I&D has thus far revealed strep agalactiae. Blood cultures have remained negative during admission. Prior cultures from wound care clinic on February 24 from debridement were with MSSA. MONAE is 0.18 on the left lower extremity. Review of wound care notes dating back to 2019 show that this current wound has been waxing and waning since June 2019 and has been treated variously with courses of IV antibiotics including vancomycin, oral antibiotics including Bactrim, doxycycline and has additionally received HBO therapy alongside of dressings and other wound care measures. It appears this wound had healed by April 2020 and was closed for nearly 10 months until recurrence in February 2021. He has received outpatient courses of clindamycin however the wound has continued to progress. I had discussed the case overnight with Dr. Metzger and recommended treatment with imipenem and linezolid. Hospital course has additionally been marked by acute kidney injury with differentials including contrast-induced nephropathy, infection mediated glomerulonephritis versus acute interstitial nephritis. Antibiotics have been currently renally dosed. Review of Systems General: Reports: 10 or more systems reviewed and unremarkable except in HPI and below Const: Denies: fever(s), chills or body aches Eyes: Denies: change in vision, blurry vision or photophobia ENMT: Reports: hoarseness; Denies: throat pain, enlarged tonsils, odynophagia or nasal congestion Card: Denies: chest pain, palpitations, irregular heart rhythm, edema, swelling of feet/ankles, lightheadedness, pre-syncope, dyspnea on exertion or orthopnea Resp: Denies: dyspnea, productive cough, non-productive cough, wheezing, stridor, pain on inspiration, change in phlegm color, hemoptysis or chest congestion GI: Denies: abdominal pain, nausea, vomiting, hematemesis, coffee ground emesis, dysphagia, heartburn, diarrhea, constipation, GI cramping, change in stool character, hematochezia or melena : Denies: flank pain, dysuria, urinary frequency, urinary urgency, urinary hesitancy or hematuria Musc: Denies: neck pain, back pain, extremity pain, joint swelling, joint warmth or deformity Neuro: Denies: headache(s), numbness in extremities, weakness in extremities, sensory changes, difficulty walking, frequent falls, dizziness, vertigo, behavioral changes, Slurred speech present or seizure-like activity Psych: Denies: anxiety, depression, suicidal ideation or homicidal ideation Endo: Denies: polyuria, polydipsia, tired all the time, cold intolerance or hot flashes David/Lymph: Denies: easy bruising or easy bleeding Medications/Allergies Home Medications Medication Instructions Recorded Confirmed Last Taken Type aspirin 81 mg tablet,delayed 81 mg PO DAILY 06/16/19 03/26/21 09/21/20 History release (Adult Aspirin Regimen) flash glucose sensor (FreeStyle #1 ea 08/21/20 03/26/21 Unknown Rx Julius 2 Sensor) exenatide (Byetta) 10 mcg SUBCUT DAILY 09/21/20 03/26/21 09/21/20 History albuterol sulfate 90 mcg/actuation 1 inh INHALATION QID PRN #8.5 g 09/23/20 03/26/21 Unknown Rx aerosol inhaler empagliflozin 10 mg tablet 10 mg PO DAILY 03/26/21 03/26/21 Unknown History (Jardiance) insulin detemir U-100 100 unit/mL 25 unit SUBCUT BID 03/26/21 03/26/21 Unknown History (3 mL) subcutaneous pen (Levemir FlexTouch U-100 Insulin) insulin lispro 100 unit/mL See Rx Instructions .ROUTE .COMPLEX 03/26/21 03/26/21 Unknown History subcutaneous pen (Humalog KwikPen (U-100) Insulin) lisinopril 10 mg tablet 10 mg PO DAILY 03/26/21 03/26/21 Unknown History Allergies Allergy/AdvReac Type Severity Reaction Status Date / Time No Known Allergies Allergy Verified 03/26/21 04:57 Current Medications Generic Name Dose Route Start Last Admin Trade Name Freq PRN Reason Stop Dose Admin Acetaminophen 650 mg 03/25/21 22:42 04/04/21 16:25 Acetaminophen 325 Mg Tablet PO 650 mg Q6H PRN Administration Mild/Mod Pain Or Temp >/= 101 Amlodipine Besylate 5 mg 04/01/21 09:00 04/04/21 08:52 Amlodipine 5 Mg Tablet PO 5 mg DAILY MANUELA Administration Aspirin 81 mg 03/26/21 09:00 04/04/21 08:52 Aspirin 81 Mg Ec Tablet PO 81 mg DAILY MANUELA Administration Atorvastatin Calcium 20 mg 03/26/21 21:00 04/03/21 20:47 Atorvastatin 40 Mg Tablet PO 20 mg BEDTIME MANUELA Administration Ergocalciferol 50,000 unit 04/03/21 10:15 04/03/21 11:22 Ergocalciferol (Vitamin D2) 50,000 Unit Capsule PO 50,000 unit Q7D MANUELA Administration Furosemide 40 mg 04/04/21 10:10 04/04/21 11:51 Furosemide 40 Mg Tablet PO 40 mg DAILY@0800 MANUELA Administration Heparin Sodium (Porcine) 5,000 unit 03/31/21 21:00 04/04/21 14:57 Heparin 5,000 Unit/Ml Inj 1 Ml SUBCUT 5,000 unit Q8H MANUELA Administration Linezolid 600 mg in 300 mls @ 300 mls/hr 04/03/21 19:00 04/04/21 16:23 Zyvox Premix IV Infused Q12H MANUELA Infusion Protocol Imipenem/Cilastatin Sodium 500 100 mls @ 200 mls/hr 04/03/21 19:00 04/04/21 13:45 mg/ Sodium Chloride IV Infused Q12H MANUELA Infusion Protocol Insulin Human Lispro 0 unit 03/26/21 08:00 04/04/21 11:51 Insulin Lispro 100 Unit/1 Ml SUBCUT 12 unit TIDWM MANUELA Administration Protocol Metoclopramide HCl 10 mg 03/26/21 09:57 03/30/21 11:12 Metoclopramide 5 Mg/Ml Sdv 2 Ml IVP 10 mg Q6H PRN Administration NAUSEA AND VOMITING Metoprolol Tartrate 12.5 mg 03/29/21 10:20 04/04/21 08:52 Metoprolol Tartrate 25 Mg Tablet PO 12.5 mg BID@0900,2100 MANUELA Administration Multivitamins 1 each 04/01/21 09:00 04/04/21 08:52 F-Fudovho-Yhgrxxl C Tablet PO 1 each DAILY MANUELA Administration Nitroglycerin 0.5 inch 03/30/21 10:15 04/04/21 14:56 Nitroglycerin 1 Gm/Inch Oint Pkt TOPICAL 0.5 inch Q6H MANUELA Administration Ondansetron HCl 4 mg 03/25/21 22:42 03/31/21 20:55 Ondansetron 2 Mg/Ml Sdv 2 Ml IVP 4 mg Q8H PRN Administration vomiting, or N/V if npo Pantoprazole Sodium 40 mg 03/31/21 09:00 04/04/21 08:52 Pantoprazole 40 Mg Sdv IVP 40 mg DAILY MANUELA Administration Sodium Bicarbonate 650 mg 04/03/21 15:00 04/04/21 16:25 Sodium Bicarbonate 650 Mg Tablet PO 650 mg TID MANUELA Administration PFSH Acute PFSH: Medical History Acquired rearfoot varus Chronic renal impairment 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 Diabetes type 2, uncontrolled Diabetic peripheral neuropathy associated with type 2 diabetes mellitus Essential hypertension Foot abscess, left Hyperlipidemia associated with type 2 diabetes mellitus Hyperlipidemia, mixed Statin intolerance Surgical History Amputated toe of right foot secondary to osteomyelitis 4th right toe History of amputation of lesser toe History of partial amputation of toe of right foot Family History Father Diabetes Mother Diabetes Other Hypertension Social History Smoking and tobacco status: never smoked Second hand smoke exposure: No Smoking risk assessment/counseling performed?: No Alcohol intake: former Desire information about alcohol rehabilitation?: No Counseling given: No Desire information about substance/drug rehabilitation?: No Counseling given: No Adopted: No Caregiver/support person: No Lives independently: Yes Household members: spouse Housing: House Marital status: service: No Current occupational status: employed Pets and animals: Yes History of recent travel: No Current gender identity: Male Vitals/I&O/Wt Last Vital Signs Temp 97.5 F L 04/04/21 16:00 Pulse 104 H 04/04/21 16:00 Resp 18 04/04/21 16:00 BP 154/69 04/04/21 16:00 Pulse Ox 98 04/04/21 16:00 04/04/21 04/04/21 04/04/21 06:59 14:59 22:59 Intake Total 830 / 3010 580 / 580 300 / 880 Output Total 670 / 870 675 / 675 Balance 160 / 2140 -95 / -95 300 / 205 Weight last 48 hrs Weight 123.967 kg Weight 120.656 kg Physical Exam Narrative: EXAM NARRATIVE: GEN: Awake, alert and oriented, no acute distress CVS: S1S2 N RS: Bilateral scattered wheezing on exam Abd: Soft, nt/nd , bs+ 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: no focal neuro deficits Urinary Catheter Management: Martinez: Cath Placed During This Visit: yes, but has since been removed by the nurse Reason for Continuing Indwelling Catheter: Acute Urinary Retention or Obstruction Urinary Catheter Date of Insertion: 03/29/21 Urinary Catheter Time of Insertion: 11:18 Date Urinary Catheter Removed: 04/04/21 Time Urinary Catheter Discontinued: 09:00 Data : 04/05/21 04:02 04/05/21 04:02 Micro: Microbiology 03/30/21 14:25 Blood Culture - Final Blood NO GROWTH AFTER 5 DAYS 03/30/21 14:14 Blood Culture - Final Blood NO GROWTH AFTER 5 DAYS 03/30/21 15:00 Anaerobic Culture - Preliminary Foot - #1 WC and GS Comments: Comment left foot Wound Culture Final 04/02/21-1328 Organism 1 Strep agalactiae - (group b) Growth MODERATE Strep Typing Strep Typing DAY 3 STREPTOCOCCUS AGALACTIAE ( GROUP B STREP) IS UNIVERSALLY SUSCEPTIBLE TO AMPICILLIN. ISOLATE WILL BE KEPT FOR 7 DAYS IF SUSCEPTIBILITY TESTING NEEDED. 02/24/21-1033 Wound Culture Final 02/27/21-1040 Organism 1 Staphylococcus aureus M.I.C. RX --------- ------ * Amoxicillin/Clavulanate <=4/2 S * Ampicillin >8 R * Ampicillin/Sulbactam <=8/4 S * Ceftriaxone <=8 S * Ciprofloxacin <=1 S * Clindamycin <=0.5 S * Erythromycin <=0.5 S * Gentamicin <=4 S * Levofloxacin <=1 S * Linezolid 4 S * Moxifloxacin <=0.5 S * Oxacillin 0.5 S * Penicillin >8 R * Rifampin <=1 S * Tetracycline <=4 S * Trimethoprim/Sulfamethoxazole <=0.5/9.5 S Vancomycin 2 S Daptomycin <=0.5 S Other data: Radiology Impressions Abdomen/Pelvis CT 03/30/21 10:08 IMPRESSION: 1. Nonspecific small volume free fluid in the abdomen and pelvis. 2. Mild circumferential wall thickening of the distal esophagus which may relate to reflux esophagitis. 3. Prominent left inguinal lymph nodes with normal morphology, likely reactive. 4. Bilateral small volume pleural effusions. Foot CT 03/30/21 10:17 IMPRESSION: Extensive subcutaneous emphysema and edema centered within the midfoot and forefoot. Air is also seen within the bases of the 2nd through 4th metatarsals, cuneiforms, cuboid, and navicular bones suggestive of extensive osteomyelitis. An MRI of the foot would provide more sensitive evaluation as to the extent of the osteomyelitis. Please note, evaluation for abscess is limited without IV contrast. Foot MRI 04/03/21 14:30 IMPRESSION: 1. Diffuse soft tissue infection and cellulitis involving the left foot extending into the deep soft tissues and intertarsal compartments. Diffuse involvement of the extensor and flexor retinaculum and associated compartments. 2. No well-defined drainable fluid collection. 3. Replacement of the normal bone marrow signal compatible with osteomyelitis worse involving the base of fifth metatarsal with bony destruction. 4. Evidence of emphysematous osteomyelitis involving the second third and fourth metatarsal extending into the metatarsal shafts. 5. Metatarsal heads appear relatively spared. First metatarsal appears normal. 6. Evidence of emphysematous osteomyelitis involving the medial, intermediate, and lateral cuneiforms, cuboid, and navicular. Notified Woodrow Metzger MD at 04/03/2021 4:06 PM. Foot X-Ray 04/03/21 17:17 IMPRESSION: 1. Cellulitis and infectious process within the soft tissues centered over the midfoot and extending laterally to the metatarsals over the ankle. Increased air suggesting interval debridement along with the extensive soft tissue infection. The soft tissue involvement appears slightly improved with less edema since 03/29/2020. 2. Lucency in several of the proximal metatarsals consistent with osteomyelitis. Osteomyelitis was better described on MRI from 04/03/2021. Chest X-Ray 04/04/21 17:32 IMPRESSION: 1. Slight repositioning of the PICC line with tip over the cavoatrial junction. 2. Otherwise stable chest. Date of Service: 03/27/21 Procedure(s): [place] [id number] ?ADDENDUM ?abnormal TBI 0.18 suggesting severe arterial disease possibly ?involving the distal segments of the infrapopliteal vessels on ?the left side. ? Date of Service: 03/28/21 Procedure(s): [place] [id number] CONCLUSIONS ?No DVT bilateral lower extremities. ?Abnormal left inguinal lymph node, likley reactive. Laboratory Results WBC 13.4 10^3/uL (4.0-10.0) H 04/05/21 04:02 Corrected WBC Cancelled 03/28/21 03:33 RBC 4.03 10^6/uL (4.1-5.3) L 04/05/21 04:02 Hgb 10.8 g/dL (11.7-16.6) L 04/05/21 04:02 Hct 33.5 % (42.0-52.0) L 04/05/21 04:02 MCV 83.1 fl (80-94) D 04/05/21 04:02 MCH 26.8 pg (28.0-34.0) L 04/05/21 04:02 MCHC 32.2 g/dL (30.0-36.0) 04/05/21 04:02 RDW 13.8 % (12.1-15.1) 04/05/21 04:02 Plt Count 379 10^3/cmm (130-400) D 04/05/21 04:02 MPV 9.6 fL (7.4-10.4) 04/05/21 04:02 Gran % Cancelled 03/28/21 03:33 Neut % (Auto) 79.0 % 04/05/21 04:02 Lymph % (Auto) 7.9 % 04/05/21 04:02 [place] % (Auto) 6.9 % 04/05/21 04:02 Eos % (Auto) 0.4 % 04/05/21 04:02 Baso % (Auto) 0.2 % 04/05/21 04:02 Neut # (Auto) 10.59 10^3/uL (1.8-7.7) H 04/05/21 04:02 Lymph # (Auto) 1.1 10^3/uL (0.8-4.8) 04/05/21 04:02 [place] # (Auto) 0.9 10^3/uL (0.2-0.9) 04/05/21 04:02 Eos # (Auto) 0.1 10^3/uL (0.0-0.8) 04/05/21 04:02 Baso # (Auto) 0.0 10^3/uL (0.0-0.1) 04/05/21 04:02 Absolute Gran (auto) Cancelled 03/28/21 03:33 Nucleated RBC % (auto) 0 % 04/05/21 04:02 Nucleated RBCs # 0.0 /100WBC 04/05/21 04:02 ESR 64 mm/hr (0-10) H 04/04/21 06:28 D-Dimer 4.20 ug/mIFEU (0-0.59) H 03/28/21 03:33 Specimen Type Arterial 03/31/21 10:05 Sample Site Radial, right 03/31/21 10:05 ABG pH 7.37 (7.35-7.45) 03/31/21 10:05 ABG pCO2 27.8 mmHg (35-45) L 03/31/21 10:05 ABG pO2 79.4 mmHg (80.0-100.0) L 03/31/21 10:05 ABG HCO3 15.9 mmol/L (22-26) L 03/31/21 10:05 ABG O2 Saturation 96.5 03/31/21 10:05 ABG Base Excess -8.1 mmol/L (-2.0-2.0) L 03/31/21 10:05 Bj Test Pos 03/31/21 10:05 A-a O2 Gradient 4.3 mmHg (5-10) L 03/31/21 10:05 Hematocrit 36.7 % (42-52) L 03/31/21 10:05 Hgb O2 Saturation 94.6 % (95-100) L 03/31/21 10:05 Carboxyhemoglobin 0.8 %THgb (0.4-20.1) 03/31/21 10:05 Methemoglobin 1.2 % (0.4-1.5) 03/31/21 10:05 Total Hemoglobin 12.0 g/dL (14-18) L 03/31/21 10:05 Sodium 127.0 mmol/L (131-143) L 03/31/21 10:05 Potassium 3.2 mmol/L (3.5-5.0) L 03/31/21 10:05 Glucose 211.0 mg/dL (70-115) H 03/31/21 10:05 Ionized Calcium 1.1 mmol/L (1.1-1.4) 03/31/21 10:05 O2 Delivery Device Room air 03/31/21 10:05 FiO2 21.0 % 03/25/21 21:12 Clinical Trial Educator ID Gd 03/31/21 10:05 Sodium 122 mmol/L (136-145) L 04/05/21 04:02 Potassium 4.5 mmol/L (3.5-5.1) 04/05/21 04:02 Chloride 94 mmol/L (98-107) L 04/05/21 04:02 Carbon Dioxide 14 mmol/L (22-29) L 04/05/21 04:02 Anion Gap 18.5 (5-19) 04/05/21 04:02 BUN 75 mg/dL (6-20) H 04/05/21 04:02 Creatinine 4.1 mg/dL (0.7-1.2) H 04/05/21 04:02 GFR Calculation 15.1 mL/min (90-130) L 04/05/21 04:02 Glucose 232 mg/dL (65-115) H 04/05/21 04:02 POC Glucose 285 mg/dL (70-110) H 04/05/21 16:59 Estimat Average Glucose 341 03/26/21 03:00 Hemoglobin A1c 13.5 % (4.0-6.0) H 03/26/21 03:00 Calculated Osmolality 284 mOsm/kg (285-295) L 04/05/21 04:02 Lactic Acid 2.4 mmol/L (0.5-2.2) H 03/26/21 03:00 Lactic Acid (Sepsis) 1.4 mmol/L (0.5-2.2) 03/26/21 06:51 Lactate 1.0 mmol/L (0.5-2.2) 03/31/21 11:37 Uric Acid 10.4 mg/dL (3.4-7.0) H 03/31/21 11:37 Calcium 7.2 mg/dL (8.5-10.5) L 04/05/21 04:02 Phosphorus 5.0 mg/dL (2.5-4.5) H 04/03/21 05:21 Magnesium 2.9 mg/dL (1.7-2.3) H 04/03/21 05:21 Total Bilirubin 0.2 mg/dL (0.15-1.2) 04/03/21 05:21 AST 24 U/L (0-40) 04/03/21 05:21 ALT 13 U/L (0-41) 04/03/21 05:21 Alkaline Phosphatase 94 IU/L (40-130) 04/03/21 05:21 Creatine Kinase 39 U/L (39-308) 04/02/21 04:59 C-Reactive Protein 101.8 mg/L (0.0-4.9) H 04/04/21 06:28 Total Protein 5.5 g/dL (6.6-8.7) L 04/03/21 05:21 Albumin 2.0 g/dL (3.5-5.2) L 04/03/21 05:21 Globulin 3.5 g/dL (1.3-4.6) 04/03/21 05:21 Lipase 11 U/L (13-60) L 03/25/21 18:36 25-OH Vitamin D Total 14 ng/mL (30-100) L 04/01/21 05:23 Procalcitonin 2.80 ng/mL (0-0.5) H 04/04/21 06:28 TSH 1.79 uIU/mL (0.27-4.20) 04/01/21 05:23 Urine Color Yellow (Yellow) 03/27/21 20:50 Urine Appearance Clear (CLEAR) 03/27/21 20:50 Urine pH 5 (5-7) 03/27/21 20:50 Ur Specific Beecher 1.025 (1.005-1.030) 03/27/21 20:50 Urine Protein 3+ (Negative) H 03/27/21 20:50 Urine Glucose (UA) 4+ (Normal) H 03/27/21 20:50 Urine Ketones 1+ (Negative) H 03/27/21 20:50 Urine Blood 3+ (Negative) H 03/27/21 20:50 Urine Nitrate Negative (Negative) 03/27/21 20:50 Urine Bilirubin Neg (Negative) 03/27/21 20:50 Urine Urobilinogen Norm mg/dL (Negative) 03/27/21 20:50 Ur Leukocyte Esterase Negative (Negative) 03/27/21 20:50 Urine RBC 50-80 /hpf (0-2) H 03/27/21 20:50 Urine WBC 0-4 /hpf (0-5) H 03/27/21 20:50 Ur Squamous Epith Cells 0-4 /hpf (0-5) H 03/27/21 20:50 Amorphous Sediment 1+ /hpf 03/27/21 20:50 Urine Bacteria 1+ /hpf (NONE) H 03/27/21 20:50 Coarse Granular Casts 0-4 /lpf H 03/27/21 20:50 Urine Yeast 1+ /hpf H 03/27/21 20:50 Ur Random Microalbumin 425 ug/dL (0-20) H 03/30/21 12:00 Ur Random Sodium 12 mmol/L 03/31/21 12:15 Ur Random Potassium 26 mmol/L 03/31/21 12:15 Ur Random Chloride 20 mmol/L 03/31/21 12:15 Urine Creatinine 216 mg/dL (39-259) 03/30/21 12:00 Urine Creatinine 216 mg/dL (39-259) 03/30/21 12:00 Microalb/Creat Ratio 1968 mg/dL (0-20) H 03/30/21 12:00 Vancomycin Trough 21.8 ug/mL (10-15) H 03/28/21 12:40 Ethyl Alcohol < 10 mg/dL (0-10) 03/25/21 20:03 Serum Ketones Negative (Negative) 03/25/21 18:36 Blood Type A Positive 04/04/21 17:57 Rho(D) Type Positive 04/04/21 17:57 Antibody Screen Negative 04/04/21 17:57 A&P Assessment and plan (1) Foot osteomyelitis, left: Status: Acute Plan 56-year-old male with a past medical history of diabetes mellitus, hypertension currently admitted for DKA and worsening left lower extremity wound with evidence of emphysematous osteomyelitis on imaging. Hospital course additionally complicated by acute kidney injury, hyponatremia, peripheral artery disease with abnormal MONAE on the left side evidence of peripheral artery disease. Given MRI findings of extensive cellulitis, intertarsal space infection, emphysematous osteomyelitis involving multiple bones including metatarsals and tarsals, anticipate inadequate control of infection with antibiotics alone. Unlikely that antibiotics without aggressive source control will be able to salvage his foot at this point in time. Patient has been evaluated by surgical services and is currently being planned for a BKA which is likely to be the most appropriate course for the patient. His wound has had a waxing and waning course in spite of being followed by wound care clinic over the past year and having received multiple courses of antibiotics in the past. Most recently patient had been on clindamycin as outpatient which may have clouded the cultures from I&D on March 30. Given recovery additionally of staff from outpatient cultures would treat MSSA as a contributing culprit here in addition to grp b Streptococcus. In the presence additionally of severe peripheral artery disease, suspect that infection may be polymicrobial and therefore recommend to continue broad-spectrum coverage with imipenem and linezolid (chosen over vancomycin due to ALESIA) for now while awaiting BKA. d/c clindamycin as no current evidence of necrotizing fasciitis or severe sepsis at this time. please send cultures from OR to decide most appropriate post op coverage and discharge antibiotics. 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
[2021-04-04] MEDS: insulin glargine 100 units/1 mL 22 UNIT SUBCUT (18:02)
[2021-04-04 20:00] VITALS: BP 131/58; PULSE 110; RESP 16; RESP 18; TEMP 36.7; O2SAT 92
[2021-04-04] MEDS: atorvastatin 40 mg Tablet 20 MG PO (20:19)
[2021-04-05] VITALS (23 sets, daily range): BP systolic 104–158; BP diastolic 60–86; PULSE 64–102; RESP 16–28; TEMP 36.2–36.8; O2SAT 94–99
[2021-04-05 04:27] LABS: Basophils % 0.2 %; Eosinophils # 0.1 10^3/uL (0.0-0.8); Eosinophils % 0.4 %; Hematocrit 33.5 % (42.0-52.0); Hemoglobin 10.8 g/dL (11.7-16.6); Lymphocytes # 1.1 10^3/uL (0.8-4.8); Lymphocytes % 7.9 %; Mean Corpuscular HGB Conc 32.2 g/dL (30.0-36.0); Mean Corpuscular Hemoglobin 26.8 pg (28.0-34.0); Mean Corpuscular Volume 83.1 fl (80-94); Mean Platelet Volume 9.6 fL (7.4-10.4); Monocytes # 0.9 10^3/uL (0.2-0.9); Monocytes % 6.9 %; Neutrophils # 10.59 10^3/uL (1.8-7.7); Nucleated Red Blood Cells % 0 %; Platelet Count 379 10^3/cmm (130-400); Red Blood Count 4.03 10^6/uL (4.1-5.3); Red Cell Distribution Width 13.8 % (12.1-15.1); White Blood Count 13.4 10^3/uL (4.0-10.0)
[2021-04-05 05:00] LABS: Slide Review Slide Review Perform
[2021-04-05 05:03] LABS: Anion Gap 18.5 (5-19); Blood Urea Nitrogen 75 mg/dL (6-20); Calcium 7.2 mg/dL (8.5-10.5); Carbon Dioxide 14 mmol/L (22-29); Chloride 94 mmol/L (98-107); Glomerular Filtration Rate 15.1 mL/min (90-130); Glucose 232 mg/dL (65-115); Osmolality Calculated 284 mOsm/kg (285-295); Potassium 4.5 mmol/L (3.5-5.1); Sodium 122 mmol/L (136-145)
[2021-04-05 06:45] LABS: Glucose Point of Care 216 mg/dL (70-110)
[2021-04-05 06:45] LABS: Glucose Point of Care 201 mg/dL (70-110)
--- NOTE | 2021-04-05 07:43 | ANES.PREANE2 ---
Pre-Anesthetic Assessment Height/Weight: Height 1.75 m Weight 123.967 kg Temp Pulse Resp BP Pulse Ox 98.0 F 100 18 109/61 96 04/05/21 04:00 04/05/21 04:00 04/05/21 04:00 04/05/21 04:00 04/05/21 04:00 Preop Diagnosis: Emphysematous osteomyelitis Operation Date: 03/30/21 14:45 Proposed Procedures p Incision And Drainage left foot(Left) - Sergo Limon MD Operation Date: 04/05/21 08:00 Proposed Procedures p BKA (Below Knee Amputation)(Left) - Sergo Limon MD Familial anesthetic complications: None Was Beta Driss taken within 24 hours: N/A Was Clonidine taken within 24 hours: N/A Last intake: 04/04 Social No alcohol and No tobacco Exam alert, oriented x 3, clear to auscultation bilaterally and regular rate & rhythm Airway Submandibular: within normal limits Cervical ROM: within normal limits Mallampati: Class III Dentition: full History/ROS No significant history except as noted CV/HEM Atrial Fibrillation (Hx of medical cardioversion several years ago with not recurrence per patient ), Arrythmia (1st degree block) and Hypertension On nitro patch for hypertensive crisis Stress Test Report 09/2020 CONCLUSION: 1. No significant EKG changes with the LexiScan infusion. 2. No LexiScan induced chest pain or cardiac arrhythmia. 3. Normal blood pressure and heart rate response. 4. Sestamibi/sestamibi perfusion scan pending; see separate report. Normal EF 09/2020 TTE ARF Hepatic None reported GI Gastroesophageal Reflux Disease Metabolic Diabetes Mellitus DKA/HHS Diabetic foot infection [facility] [place] Osteoarthritis/DJD Neuropsych None reported Anesthetic Plan ASA status: 4 (56 year old obese male admitted in DKA with acute on chronic diabetic foot infection w/ known poor vascular flow unable to undergo revascularization due to acute renal failure) Anesthesia: General and Regional (specify below) (Plan popliteal and femoral nerve blocks for post op pain control, general for anesthetic. Discussed with patient and his , all questions answered. ) Medications/Allergies Home Medications Medication Instructions Recorded Confirmed Last Taken Type aspirin 81 mg tablet,delayed 81 mg PO DAILY 06/16/19 03/26/21 09/21/20 History release (Adult Aspirin Regimen) flash glucose sensor (Readbugyle #1 ea 08/21/20 03/26/21 Unknown Rx Julius 2 Sensor) exenatide (Byetta) 10 mcg SUBCUT DAILY 09/21/20 03/26/21 09/21/20 History albuterol sulfate 90 mcg/actuation 1 inh INHALATION QID PRN #8.5 g 09/23/20 03/26/21 Unknown Rx aerosol inhaler empagliflozin 10 mg tablet 10 mg PO DAILY 03/26/21 03/26/21 Unknown History (Jardiance) insulin detemir U-100 100 unit/mL 25 unit SUBCUT BID 03/26/21 03/26/21 Unknown History (3 mL) subcutaneous pen (Levemir FlexTouch U-100 Insulin) insulin lispro 100 unit/mL See Rx Instructions .ROUTE .COMPLEX 03/26/21 03/26/21 Unknown History subcutaneous pen (Humalog KwikPen (U-100) Insulin) lisinopril 10 mg tablet 10 mg PO DAILY 03/26/21 03/26/21 Unknown History Allergies Allergy/AdvReac Type Severity Reaction Status Date / Time No Known Allergies Allergy Verified 03/26/21 04:57 Current Medications Generic Name Dose Route Start Last Admin Trade Name Freq PRN Reason Stop Dose Admin Acetaminophen 650 mg 03/25/21 22:42 04/04/21 22:10 Acetaminophen 325 Mg Tablet PO 650 mg Q6H PRN Administration Mild/Mod Pain Or Temp >/= 101 Amlodipine Besylate 5 mg 04/01/21 09:00 04/04/21 08:52 Amlodipine 5 Mg Tablet PO 5 mg DAILY MANUELA Administration Aspirin 81 mg 03/26/21 09:00 04/04/21 08:52 Aspirin 81 Mg Ec Tablet PO 81 mg DAILY MANUELA Administration Atorvastatin Calcium 20 mg 03/26/21 21:00 04/04/21 20:19 Atorvastatin 40 Mg Tablet PO 20 mg BEDTIME MANUELA Administration Ergocalciferol 50,000 unit 04/03/21 10:15 04/03/21 11:22 Ergocalciferol (Vitamin D2) 50,000 Unit Capsule PO 50,000 unit Q7D MANUELA Administration Furosemide 40 mg 04/04/21 10:10 04/04/21 11:51 Furosemide 40 Mg Tablet PO 40 mg DAILY@0800 MANUELA Administration Heparin Sodium (Porcine) 5,000 unit 03/31/21 21:00 04/04/21 14:57 Heparin 5,000 Unit/Ml Inj 1 Ml SUBCUT 5,000 unit Q8H MANUELA Administration Linezolid 600 mg in 300 mls @ 300 mls/hr 04/03/21 19:00 04/05/21 00:55 Zyvox Premix IV Infused Q12H [facility] Infusion Protocol Imipenem/Cilastatin Sodium 500 100 mls @ 200 mls/hr 04/03/21 19:00 04/04/21 22:55 mg/ Sodium Chloride IV Infused Q12H [facility] Infusion Protocol Insulin Glargine 22 unit 04/04/21 18:00 04/04/21 18:02 Insulin Glargine 100 Units/1 Ml SUBCUT 22 unit BID MANUELA Administration Insulin Human Lispro 0 unit 03/26/21 08:00 04/04/21 18:02 Insulin Lispro 100 Unit/1 Ml SUBCUT 6 unit TIDWM [facility] Administration Protocol Metoclopramide HCl 10 mg 03/26/21 09:57 03/30/21 11:12 Metoclopramide 5 Mg/Ml Sdv 2 Ml IVP 10 mg Q6H PRN Administration NAUSEA AND VOMITING Metoprolol Tartrate 12.5 mg 03/29/21 10:20 04/04/21 20:19 Metoprolol Tartrate 25 Mg Tablet PO 12.5 mg BID@0900,2100 [facility] Administration Multivitamins 1 each 04/01/21 09:00 04/04/21 08:52 Y-Dozlawx-Vtlnyqo C Tablet PO 1 each DAILY [facility] Administration Nitroglycerin 0.5 inch 03/30/21 10:15 04/05/21 05:25 Nitroglycerin 1 Gm/Inch Oint Pkt TOPICAL Not Given Q6H [facility] Ondansetron HCl 4 mg 03/25/21 22:42 03/31/21 20:55 Ondansetron 2 Mg/Ml Sdv 2 Ml IVP 4 mg Q8H PRN Administration vomiting, or N/V if npo Pantoprazole Sodium 40 mg 03/31/21 09:00 04/04/21 08:52 Pantoprazole 40 Mg Sdv IVP 40 mg DAILY [facility] Administration Sodium Bicarbonate 650 mg 04/03/21 15:00 04/04/21 20:19 Sodium Bicarbonate 650 Mg Tablet PO 650 mg TID [facility] Administration Additional Medication Information Current Medications Acetaminophen (Acetaminophen 325 Mg Tablet) 650 mg PO Q6H PRN PRN Reason: Mild/Mod Pain Or Temp >/= 101 Last Admin: 03/31/21 20:55 Dose: 650 mg Documented by: Amlodipine Besylate (Amlodipine 5 Mg Tablet) 5 mg PO DAILY [facility] Last Admin: 04/03/21 09:21 Dose: 5 mg Documented by: Aspirin (Aspirin 81 Mg Ec Tablet) 81 mg PO DAILY [facility] Last Admin: 04/03/21 09:20 Dose: 81 mg Documented by: Atorvastatin Calcium (Atorvastatin 40 Mg Tablet) 20 mg PO BEDTIME [facility] Last Admin: 04/02/21 21:47 Dose: 20 mg Documented by: Bisacodyl (Bisacodyl 5 Mg Tablet) 10 mg PO DAILY PRN; Protocol PRN Reason: Constipation (see protocol) Dextrose (Dextrose 50% Syringe 50 Ml) 25 ml IVP ONCE PRN; Protocol PRN Reason: hypoglycemia protocol Dextrose (Dextrose 50% Syringe 50 Ml) 50 ml IVP PRN PRN; Protocol PRN Reason: hypoglycemia protocol Glucagon (Glucagon 1 Mg/Ml Inj 1 Ml) 1 mg IM ONCE PRN; Protocol PRN Reason: Adult Acute Hypoglycemia Prot Heparin Sodium (Porcine) (Heparin 5,000 Unit/Ml Inj 1 Ml) 5,000 unit SUBCUT Q8H [facility] Last Admin: 04/03/21 06:45 Dose: 5,000 unit Documented by: Hydralazine HCl (Hydralazine 20 Mg/Ml Inj 1 Ml) 10 mg IVP Q4H PRN PRN Reason: if sbp>180 Dextrose (D5w) 500 mls @ 100 mls/hr IV ONCE PRN; Protocol PRN Reason: Adult Acute Hypoglycemia Prot Cefepime HCl 1,000 mg/ Sodium (Chloride) 50 mls @ 100 mls/hr IV Q24H [facility]; Protocol Last Infusion: 04/03/21 07:36 Dose: Infused Documented by: Sodium Chloride (Sodium Chloride 0.9%) 1,000 mls @ 75 mls/hr IV .[id number] [facility] Last Admin: 04/03/21 01:05 Dose: 75 mls/hr Documented by: Insulin Glargine (Insulin Glargine 100 Units/1 Ml) 20 unit SUBCUT BID [facility] Last Admin: 04/03/21 09:21 Dose: 20 unit Documented by: Insulin Human Lispro (Insulin Lispro 100 Unit/1 Ml) 0 unit SUBCUT TIDWM [facility]; Protocol Last Admin: 04/03/21 07:14 Dose: Not Given Documented by: Metoclopramide HCl (Metoclopramide 5 Mg/Ml Sdv 2 Ml) 10 mg IVP Q6H PRN PRN Reason: NAUSEA AND VOMITING Last Admin: 03/30/21 11:12 Dose: 10 mg Documented by: Metoprolol Tartrate (Metoprolol Tartrate 25 Mg Tablet) 12.5 mg PO BID@0900,2100 [facility] Last Admin: 04/03/21 09:20 Dose: 12.5 mg Documented by: Multivitamins (H-Sehnvai-Zkmazpy C Tablet) 1 each PO DAILY [facility] Last Admin: 04/03/21 09:20 Dose: 1 each Documented by: Nitroglycerin (Nitroglycerin 1 Gm/Inch Oint Pkt) 0.5 inch TOPICAL Q6H [facility] Last Admin: 04/03/21 06:48 Dose: 0.5 inch Documented by: Ondansetron HCl (Ondansetron 2 Mg/Ml Sdv 2 Ml) 4 mg IVP Q8H PRN PRN Reason: vomiting, or N/V if npo Last Admin: 03/31/21 20:55 Dose: 4 mg Documented by: Pantoprazole Sodium (Pantoprazole 40 Mg Sdv) 40 mg IVP DAILY [facility] Last Admin: 04/02/21 09:24 Dose: 40 mg Documented by: [facility] Anesthesia Medical History Acquired rearfoot varus Chronic renal impairment 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 Diabetes type 2, uncontrolled Diabetic peripheral neuropathy associated with type 2 diabetes mellitus Essential hypertension Foot abscess, left Hyperlipidemia associated with type 2 diabetes mellitus Hyperlipidemia, mixed Statin intolerance Surgical History Amputated toe of right foot secondary to osteomyelitis 4th right toe History of amputation of lesser toe History of partial amputation of toe of right foot Family History Father Diabetes Mother Diabetes Other Hypertension Social History Smoking and tobacco status: never smoked Second hand smoke exposure: No Smoking risk assessment/counseling performed?: No Alcohol intake: former Desire information about alcohol rehabilitation?: No Counseling given: No Desire information about substance/drug rehabilitation?: No Counseling given: No Adopted: No Caregiver/support person: No Lives independently: Yes Household members: spouse Housing: House Marital status: service: No Current occupational status: employed Pets and animals: Yes History of recent travel: No Current gender identity: Male Data Anesthesia : 04/05/21 04:02 04/05/21 04:02 Short CBC 04/04/21 04/05/21 Range/Units 06:28 04:02 WBC 13.8 H 13.4 H (4.0-10.0) 10^3/uL Hgb 10.9 L 10.8 L (11.7-16.6) g/dL Hct 35.3 L 33.5 L (42.0-52.0) % MCV 87.8 D 83.1 D (80-94) fl Plt Count 283 379 D (130-400) 10^3/cmm Neut % (Auto) 78.7 79.0 % Neut # (Auto) 10.88 H 10.59 H (1.8-7.7) 10^3/uL BMP 04/03/21 04/04/21 04/05/21 17:37 06:28 04:02 Sodium 123 L 123 L 122 L Potassium 4.2 4.1 4.5 Chloride 95 L 95 L 94 L Carbon Dioxide 13 L 13 L 14 L BUN 71 H 71 H 75 H Creatinine 3.9 H 4.0 H 4.1 H Glucose 164 H 238 H 232 H Calcium 7.7 L 7.0 L 7.2 L Blood Bank 04/04/21 17:57 Blood Type A Positive Rho(D) Type Positive Antibody Screen Negative Coags 04/04/21 04/04/21 06:28 06:28 ESR 64 H C-Reactive Protein 101.8 H Microbiology 03/30/21 14:25 Blood Culture - Final Blood NO GROWTH AFTER 5 DAYS 03/30/21 14:14 Blood Culture - Final Blood NO GROWTH AFTER 5 DAYS 03/30/21 15:00 Anaerobic Culture - Preliminary Foot - #1 Cardiac Studies: Echocardiogram 09/22/20 Sestamibi Stress Test (Cardiology) 09/23/20
--- NOTE | 2021-04-05 07:52 | P.PN_ITS ---
Subjective Subjective: Interval history: No issues overnight, patient is not in severe pain Vitals/I&O/Wt Last Vital Signs Temp 98.0 F 04/05/21 04:00 Pulse 100 04/05/21 04:00 Resp 18 04/05/21 04:00 BP 109/61 04/05/21 04:00 Pulse Ox 96 04/05/21 04:00 04/04/21 04/05/21 04/05/21 22:59 06:59 14:59 Intake Total 1000 / 1880 300 / 1880 Output Total 350 / 1175 150 / 1175 Balance 650 / 705 150 / 705 Weight last 48 hrs Weight 273 lb 4.8 oz Physical Exam Narrative: EXAM NARRATIVE: Left foot: Dressings dry and intact, pedal edema Urinary Catheter Management: Martinez: Cath Placed During This Visit: yes, but has since been removed by the nurse Reason for Continuing Indwelling Catheter: Acute Urinary Retention or Obstruction Urinary Catheter Date of Insertion: 03/29/21 Urinary Catheter Time of Insertion: 11:18 Date Urinary Catheter Removed: 04/04/21 Time Urinary Catheter Discontinued: 09:00 Data : 04/05/21 04:02 04/05/21 04:02 Micro: Microbiology 03/30/21 14:25 Blood Culture - Final Blood NO GROWTH AFTER 5 DAYS 03/30/21 14:14 Blood Culture - Final Blood NO GROWTH AFTER 5 DAYS 03/30/21 15:00 Anaerobic Culture - Preliminary Foot - #1 A&P Assessment and plan (1) Diabetic foot infection: This is a 56-year-old male with type II diabetic admitted with DKA who also has left foot ulcer which is being cared for by Dr. Vidal at the wound care clinic. Patient had undergone incision and drainage 5 days ago. While patient had remained afebrile, and his WBC is down to 13 K. He is currently on multiple antibiotics. MRI obtained showing emphysematous osteomyelitis and second third and fourth left metatarsal and osteomyelitis of fifth metatarsal with emphysematous osteomyelitis of medial, intermediate and lateral cuneiform, cuboid and navicular. Plan for left below-knee amputation today Type and screen Procedure, risks, benefits and alternatives have been discussed with the patient who wishes to proceed with surgery. Status: Acute Attestations Medical Necessity Statement*: As per primary Coding Level of Care Code Acute Pharmacy Technician Per Diem for Chg Fwd Diagnoses Diabetic foot infection E11.628; L08.9
[2021-04-05] MEDS: ceFAZolin 1,000 mg SDV 1000 MG IRRIGATION (08:16)
--- NOTE | 2021-04-05 09:43 | ANES.PROC ---
Anesthesia Procedures Procedure/Date: 04/05/21 Nerve Block ^: Nerve Block 1: Main Anesthesia: general anesthesia Time Out Performed: Yes ([id number]) Consent: requested by attending/covering physician and from patient Nerve block location: popliteal Anesthesia monitors applied: pulse oximetry, BP cuff and oxygen Nerve block position: semi sitting Anesthetic Used: bupivacaine 0.5% Amount of anesthesia used (mL): 20 Ultrasound used to: recognize landmarks and other (popliteal nerve) Nerve Stimulator Used?: Yes (Motor response lost < 0.4 mA) Interscalene/Femoral BLK: 4 stimuplex 21 g needle used for position and inplane approach, visualize local anesthetic spread and no vascular puncture identified Injection: neg aspiration of heme and paresthesia +/- Patient Tolerated Procedure: well and no complications Additional Comments: After time out sterile prep, using sterile technique, and using real time US guidance for target selection needle was inserted with real time visualization of needle entry and real time visualization of needle advancement toward intended target. Negative aspiration. LA injected incrementally with negative aspiration every 5 cc and real time US visualization of LA spread throughout procedure. Tolerated well. Image(s) saved.
--- NOTE | 2021-04-05 09:47 | P.ANES_ITS ---
Anesthesia Procedures Procedure/Date: 04/05/21
--- NOTE | 2021-04-05 09:47 | ANES.PROC ---
Anesthesia Procedures Procedure/Date: 04/05/21
--- NOTE | 2021-04-05 09:49 | ANES.PROC ---
Anesthesia Procedures Procedure/Date: 04/05/21 Nerve Block ^: Nerve Block 1: Main Anesthesia: general anesthesia Time Out Performed: Yes ([id number]) Consent: requested by attending/covering physician and from patient Nerve block location: femoral Anesthesia monitors applied: pulse oximetry, BP cuff and oxygen Nerve block position: supine Anesthetic Used: bupivacaine 0.5% Amount of anesthesia used (mL): 20 Ultrasound used to: recognize landmarks and visualize and ID femerol nerve Nerve Stimulator Used?: Yes Interscalene/Femoral BLK: 4 stimuplex 21 g needle used for position and inplane approach, visualize local anesthetic spread and no vascular puncture identified Injection: neg aspiration of heme Patient Tolerated Procedure: well and no complications Complications: none Additional Comments: After time out sterile prep, using sterile technique, and using real time US guidance for target selection needle was inserted with real time visualization of needle entry and real time visualization of needle advancement toward intended target. Negative aspiration. LA injected incrementally with negative aspiration every 5 cc and real time US visualization of LA spread throughout procedure. Tolerated well. Image(s) saved.
--- NOTE | 2021-04-05 10:53 | PM.OP ---
Operative Report Date of procedure: April 05, 2021 Pre-op diagnosis: 1. Emphysematous osteomyelitis 2. Chronic diabetic ulcer left foot 3. Acute renal failure Post-op diagnosis: 1. Emphysematous osteomyelitis 2. Chronic diabetic ulcer left foot 3. Acute renal failure Procedure done: Left below-knee amputation Specimens removed/disposition: Left BKA specimen Surgeon: Sergo Limon Anesthesia: General Estimated blood loss (mL): 100 Condition: stable Disposition: PACU Procedure: The patient was taken to the operating room and intubated under general anesthesia after Martinez catheter was placed The left leg was prepped and draped in a sterile manner. A tourniquet was placed and Esmarch bandage was applied and tourniquet inflated to 350 mmHg. Total tourniquet time 53 minutes. The skin incision was marked anteriorly at 10 cm below the tibial tuberosity and a lower posterior incision was planned for a posterior flap. Using a 15 blade the skin and subcutaneous tissue was divided anteriorly and using periosteal elevator the tibia was freed up superiorly for 3-4 cm. The muscles of the anterolateral compartment were divided using electrocautery until the fibula was identified. Using periosteal elevator the fibula was freed of adjacent muscle tissue. Using electric saw the tibia was divided 3 cm superior to the level of the skin incision. The tibial nerve was clamped, cut and tied off with 3-0 Vicryl suture which. The fibula was divided with electric saw 2 cm above the level of the division of tibia. The anterior tibial, posterior tibial and peroneal vessels were identified clamped cut and suture-ligated 2-0 Vicryl suture. The muscles of the posterior compartment were divided using an amputation blade. Hemostasis was achieved with electrocautery and muscular branches were tied off with 3-0 Vicryl sutures after releasing the tourniquet. The wound was irrigated with saline and the deep fascia was approximated with interrupted 2-0 Vicryl suture and skin was closed with minnie. The patient had significant edema from his acute renal failure which made closure difficult. The incision was covered with betadine gauze, ABDs, 4 x 4's, Kerlix and Sylvester wraps. The dressings were covered with a stockinette and knee splint was placed to prevent flexion deformity. The patient was extubated and transferred to recovery room in stable condition.
--- NOTE | 2021-04-05 11:36 | ANE.PACU2 ---
Inpatient post-anesthesia follow up: Airway intact: Yes Vital signs: Temperature 97.1 F Pulse Rate 74 Respiratory Rate 20 Blood Pressure 130/60 Pulse Oximetry 98 Oxygen Delivery Me thod Room Air Oxygen Flow Rate 6 Fraction of Inspir ed Oxygen Hydration adequate: Yes Nausea and vomiting: No Pain level: 1 Mental status: Baseline
[2021-04-05] MEDS: oxyCODONE-APAP 10-325 mg Tablet 1 TAB PO ×3 (12:47→23:05)
[2021-04-05] MEDS: b-complex-vitamin c Tablet 1 EACH PO (12:48)
[2021-04-05] MEDS: FUROsemide 40 mg Tablet PO (12:48)
[2021-04-05] MEDS: amlodipine 5 mg Tablet PO (12:48)
[2021-04-05] MEDS: insulin lispro 100 unit/1 mL SUBCUT ×2 (12:49→18:26)
[2021-04-05] MEDS: metoprolol tartrate 25 mg Tablet 12.5 MG PO ×2 (12:49→20:26)
--- NOTE | 2021-04-05 13:11 | PM.PN ---
Subjective Subjective: Interval history: Status post left BKA Leukocytosis 13,000, afebrile, sodium 122, creatinine 4.1, nonoliguric Continue IV diuretics until discharge Switch to p.o. antibiotics at the time of discharge Vitals/I&O/Wt Last Vital Signs Temp 97.5 F L 04/05/21 11:40 Pulse 64 04/05/21 12:40 Resp 17 04/05/21 12:40 BP 123/70 04/05/21 12:40 Pulse Ox 98 04/05/21 12:40 04/04/21 04/05/21 04/05/21 22:59 06:59 14:59 Intake Total 1000 / 1580 300 / 1880 660 / 660 Output Total 350 / 1025 150 / 1175 200 / 200 Balance 650 / 555 150 / 705 460 / 460 Weight last 48 hrs Weight 123.967 kg Physical Exam Narrative: EXAM NARRATIVE: Left leg dressing in place Abdomen soft No sign of fluid overload Asymptomatic Awake and alert Saturating well on room air Nonfocal neuro exam No audible stridor or wheezing Urinary Catheter Management: Martinez: Cath Placed During This Visit: yes, but has since been removed by the nurse Reason for Continuing Indwelling Catheter: Acute Urinary Retention or Obstruction Urinary Catheter Date of Insertion: 04/05/21 Urinary Catheter Time of Insertion: 08:25 Date Urinary Catheter Removed: 04/04/21 Time Urinary Catheter Discontinued: 09:00 Data : 04/05/21 04:02 04/05/21 04:02 Micro: Microbiology 03/30/21 14:25 Blood Culture - Final Blood NO GROWTH AFTER 5 DAYS 03/30/21 14:14 Blood Culture - Final Blood NO GROWTH AFTER 5 DAYS 03/30/21 15:00 Anaerobic Culture - Preliminary Foot - #1 A&P Assessment and plan (1) Foot osteomyelitis, left: Status: Acute (2) S/P BKA (below knee amputation): Status: Acute (3) Contrast dye induced nephropathy: Status: Acute (4) Peripheral arterial disease: Status: Acute (5) Hyperosmolar hyperglycemic state (HHS): Status: Acute (6) Diabetes: Status: Acute (7) Essential hypertension: Status: Acute (8) Diabetic foot infection: Status: Acute Plan Left BKA postop day 0 I will keep him on MRSA and anaerobic coverage until he is discharged from the hospital, clindamycin discontinued yesterday At the time of discharge might be able to switch to ciprofloxacin and Augmentin, Previous wound culture positive for MSSA Leukocytosis 13,000, afebrile Contrast-induced nephropathy, appreciate nephro recommendations Appreciate podiatry and ID recommendations Patient will need close follow-up with wound care clinic Type 2 diabetes continue Lantus along with sliding scale DVT prophylaxis: Heparin Consistent carb diet Attestations Medical Necessity Statement*: Continue medical management Time Spent in Patient Care: 15min Coding Level of Care Code Acute [place] Erector for g Fwd Diagnoses Foot osteomyelitis, left M86.9 S/P BKA (below knee amputation) Z89.519 Contrast dye induced nephropathy N14.1; T50.8X5A Peripheral arterial disease I73.9 Hyperosmolar hyperglycemic state (HHS) E11.00; E11.65 Diabetes E11.9 Essential hypertension I10 Diabetic foot infection E11.628; L08.9
[2021-04-05] MEDS: linezolid premix 600 MG/300 ML PREMIX 300 MG IV ×2 (13:44→23:45)
[2021-04-05] MEDS: nitroglycerin 1 gm/inch oint Pkt 0.5 INCH TOPICAL ×2 (13:45→18:25)
[2021-04-05] MEDS: heparin 5,000 unit/mL INJ 1 mL 5000 UNIT SUBCUT ×2 (13:46→20:26)
[2021-04-05 14:25] LABS: Glucose Point of Care 225 mg/dL (70-110)
[2021-04-05] MEDS: sodium bicarbonate 650 mg Tablet PO ×2 (15:46→20:26)
[2021-04-05 17:02] LABS: Glucose Point of Care 285 mg/dL (70-110)
[2021-04-05] MEDS: insulin glargine 100 units/1 mL 22 UNIT SUBCUT (18:25)
[2021-04-05] MEDS: atorvastatin 40 mg Tablet 20 MG PO (20:26)
[2021-04-05 20:56] LABS: Glucose Point of Care 274 mg/dL (70-110)
[2021-04-06] VITALS (10 sets, daily range): BP systolic 120–159; BP diastolic 66–79; PULSE 74–79; RESP 16–20; TEMP 36.5–37.2; O2SAT 93–97
[2021-04-06] MEDS: heparin 5,000 unit/mL INJ 1 mL 5000 UNIT SUBCUT ×2 (05:02→13:14)
[2021-04-06] MEDS: oxyCODONE-APAP 10-325 mg Tablet 1 TAB PO ×4 (05:02→22:39)
[2021-04-06 06:27] LABS: Glucose Point of Care 233 mg/dL (70-110)
[2021-04-06 07:02] LABS: Basophils % 0.1 %; Eosinophils # 0.1 10^3/uL (0.0-0.8); Eosinophils % 0.3 %; Hematocrit 28.1 % (42.0-52.0); Hemoglobin 8.8 g/dL (11.7-16.6); Lymphocytes % 6.3 %; Mean Corpuscular HGB Conc 31.3 g/dL (30.0-36.0); Mean Corpuscular Hemoglobin 27.1 pg (28.0-34.0); Mean Corpuscular Volume 86.5 fl (80-94); Mean Platelet Volume 9.5 fL (7.4-10.4); Monocytes # 0.9 10^3/uL (0.2-0.9); Monocytes % 5.8 %; Neutrophils # 12.94 10^3/uL (1.8-7.7); Nucleated Red Blood Cells % 0 %; Platelet Count 327 10^3/cmm (130-400); Red Blood Count 3.25 10^6/uL (4.1-5.3); Red Cell Distribution Width 14.1 % (12.1-15.1); White Blood Count 15.2 10^3/uL (4.0-10.0)
[2021-04-06 07:04] LABS: Anion Gap 17.1 (5-19); Blood Urea Nitrogen 77 mg/dL (6-20); Calcium 7.1 mg/dL (8.5-10.5); Carbon Dioxide 15 mmol/L (22-29); Chloride 97 mmol/L (98-107); Glomerular Filtration Rate 13.5 mL/min (90-130); Glucose 218 mg/dL (65-115); Osmolality Calculated 288 mOsm/kg (285-295); Potassium 5.1 mmol/L (3.5-5.1); Sodium 124 mmol/L (136-145)
--- NOTE | 2021-04-06 08:33 | PM.PN ---
Subjective Subjective: Interval history: Mr. Kruger feels generally okay. The amputation was performed yesterday. He still has phantom limb sensation in the foot but is generally comfortable. Pain is controlled. Some significant lower extremity and scrotal edema. Breathing comfortably. No overt uremic symptoms. Romeo catheter was removed, still having some difficulty passing his urine. Medications: Reviewed: Yes Medication Review Details: Current Medications Acetaminophen (Acetaminophen 325 Mg Tablet) 650 mg PO Q6H PRN PRN Reason: Mild/Mod Pain Or Temp >/= 101 Last Admin: 03/31/21 20:55 Dose: 650 mg Documented by: Amlodipine Besylate (Amlodipine 5 Mg Tablet) 5 mg PO DAILY [facility] Last Admin: 04/03/21 09:21 Dose: 5 mg Documented by: Aspirin (Aspirin 81 Mg Ec Tablet) 81 mg PO DAILY [facility] Last Admin: 04/03/21 09:20 Dose: 81 mg Documented by: Atorvastatin Calcium (Atorvastatin 40 Mg Tablet) 20 mg PO BEDTIME [facility] Last Admin: 04/02/21 21:47 Dose: 20 mg Documented by: Bisacodyl (Bisacodyl 5 Mg Tablet) 10 mg PO DAILY PRN; Protocol PRN Reason: Constipation (see protocol) Dextrose (Dextrose 50% Syringe 50 Ml) 25 ml IVP ONCE PRN; Protocol PRN Reason: hypoglycemia protocol Dextrose (Dextrose 50% Syringe 50 Ml) 50 ml IVP PRN PRN; Protocol PRN Reason: hypoglycemia protocol Glucagon (Glucagon 1 Mg/Ml Inj 1 Ml) 1 mg IM ONCE PRN; Protocol PRN Reason: Adult Acute Hypoglycemia Prot Heparin Sodium (Porcine) (Heparin 5,000 Unit/Ml Inj 1 Ml) 5,000 unit SUBCUT Q8H [facility] Last Admin: 04/03/21 06:45 Dose: 5,000 unit Documented by: Hydralazine HCl (Hydralazine 20 Mg/Ml Inj 1 Ml) 10 mg IVP Q4H PRN PRN Reason: if sbp>180 Dextrose (D5w) 500 mls @ 100 mls/hr IV ONCE PRN; Protocol PRN Reason: Adult Acute Hypoglycemia Prot Cefepime HCl 1,000 mg/ Sodium (Chloride) 50 mls @ 100 mls/hr IV Q24H [facility]; Protocol Last Infusion: 04/03/21 07:36 Dose: Infused Documented by: Sodium Chloride (Sodium Chloride 0.9%) 1,000 mls @ 75 mls/hr IV .[id number] [facility] Last Admin: 04/03/21 01:05 Dose: 75 mls/hr Documented by: Insulin Glargine (Insulin Glargine 100 Units/1 Ml) 20 unit SUBCUT BID [facility] Last Admin: 04/03/21 09:21 Dose: 20 unit Documented by: Insulin Human Lispro (Insulin Lispro 100 Unit/1 Ml) 0 unit SUBCUT TIDWM [facility]; Protocol Last Admin: 04/03/21 07:14 Dose: Not Given Documented by: Metoclopramide HCl (Metoclopramide 5 Mg/Ml Sdv 2 Ml) 10 mg IVP Q6H PRN PRN Reason: NAUSEA AND VOMITING Last Admin: 03/30/21 11:12 Dose: 10 mg Documented by: Metoprolol Tartrate (Metoprolol Tartrate 25 Mg Tablet) 12.5 mg PO BID@0900,2100 [facility] Last Admin: 04/03/21 09:20 Dose: 12.5 mg Documented by: Multivitamins (M-Lrwrjqa-Ffprgvg C Tablet) 1 each PO DAILY [facility] Last Admin: 04/03/21 09:20 Dose: 1 each Documented by: Nitroglycerin (Nitroglycerin 1 Gm/Inch Oint Pkt) 0.5 inch TOPICAL Q6H [facility] Last Admin: 04/03/21 06:48 Dose: 0.5 inch Documented by: Ondansetron HCl (Ondansetron 2 Mg/Ml Sdv 2 Ml) 4 mg IVP Q8H PRN PRN Reason: vomiting, or N/V if npo Last Admin: 03/31/21 20:55 Dose: 4 mg Documented by: Pantoprazole Sodium (Pantoprazole 40 Mg Sdv) 40 mg IVP DAILY [facility] Last Admin: 04/02/21 09:24 Dose: 40 mg Documented by: Vitals/I&O/Wt Last Vital Signs Temp 97.8 F 04/06/21 08:01 Pulse 74 04/06/21 08:01 Resp 16 04/06/21 08:01 BP 130/79 04/06/21 08:01 Pulse Ox 96 04/06/21 08:01 04/05/21 04/06/21 04/06/21 22:59 06:59 14:59 Intake Total 760 / 1880 860 / 2740 Balance 760 / 1380 860 / 2240 Weight last 48 hrs Weight 124.148 kg Physical Exam Narrative: EXAM NARRATIVE: Constitutional: Awake, comfortable HEENT: Wet mucosa, no jvp, non icteric Lungs: Bilaterally clear without discernible wheeze, rales in all lung zones CVS: S1 S2, no murmurs Abdo: Soft, BS ok Ext 4: foot dressed, edematous Neurological: Grossly non-focal Urinary Catheter Management: Romeo: Cath Placed During This Visit: yes, but has since been removed by the nurse Reason for Continuing Indwelling Catheter: Acute Urinary Retention or Obstruction Urinary Catheter Date of Insertion: 04/05/21 Urinary Catheter Time of Insertion: 08:25 Date Urinary Catheter Removed: 04/04/21 Time Urinary Catheter Discontinued: 09:00 Data : 04/06/21 05:43 04/06/21 05:43 Micro: Microbiology 03/30/21 15:00 Anaerobic Culture - Preliminary Foot - #1 A&P Assessment and plan (1) Acute renal failure superimposed on stage 3b chronic kidney disease: 1. Acute kidney injury Differential diagnosis includes contrast nephropathy, infection mediated or myelopathy, acute interstitial nephritis. Renal function is relatively stable at this time with minor fluctuation in serum creatinine. No acute indication for dialysis. Difficulty passing urine, bladder scan + romeo may be needed (D/w RN) NPO tonight in event of needing dialysis in the am DC lasix Continue supportive management, Avoid usual nephrotoxic agents Dose medication for GFR less than 15 2. Chemistry Pronounced hyponatremia as well as mixed gap nongap metabolic acidosis. This is in part secondary to kidney damage as well. Lasix given with minimal effect, cont oral bicarb I have asked him not to go to heavy on his fluid intake and have encouraged solute intake. 3. 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 4. Hemodynamics Fluctuant, systolics 126-160, continue to monitor without change of antihypertensives at this time. Kristofer Noble MD Nephrology [phone] Patient seen and examined via telemedicine, with the assistance of the bedside RN > 25 min spent in evaluation and mgmt of patient Status: Acute Attestations Medical Necessity Statement*: ALESIA eval Coding Level of Care Code Acute Reporter Anchor for martell Fwd Diagnoses Acute renal failure superimposed on stage 3b chronic kidney disease N17.9; N18.32
[2021-04-06] MEDS: insulin lispro 100 unit/1 mL SUBCUT ×2 (09:17→13:14)
[2021-04-06] MEDS: metoprolol tartrate 25 mg Tablet 12.5 MG PO ×2 (09:18→22:38)
[2021-04-06] MEDS: insulin glargine 100 units/1 mL 22 UNIT SUBCUT (09:18)
[2021-04-06] MEDS: b-complex-vitamin c Tablet 1 EACH PO (09:18)
[2021-04-06] MEDS: amlodipine 5 mg Tablet PO (09:19)
[2021-04-06] MEDS: sodium bicarbonate 650 mg Tablet PO ×3 (09:19→22:39)
[2021-04-06] MEDS: aspirin 81 mg EC Tablet PO (09:19)
[2021-04-06] MEDS: oxybutynin 5 mg Tablet PO ×3 (09:24→22:38)
[2021-04-06] MEDS: pantoprazole 40 mg SDV IVP ×2 (10:37→22:42)
[2021-04-06 11:49] LABS: Glucose Point of Care 191 mg/dL (70-110)
--- NOTE | 2021-04-06 12:12 | P.PN_ITS ---
Subjective Subjective: Interval history: This morning patient is stating that his leg pain is better, he was retaining urine about 450cc, Martinez catheter was placed, Plan is to keep him n.p.o. after midnight in case he will require temporary dialysis catheter placement tomorrow morning We will monitor his urine output for now he is not oliguric as we have noticed 400 cc of urine in the urine bag Potassium 5.1 Patient gave consent for his case to be published in [place] [facility] This morning patient had 1 episode of emesis, I will change back to full liquid, patient was able to pass flatus yesterday Vitals/I&O/Wt Last Vital Signs Temp 98.0 F 04/06/21 11:49 Pulse 79 04/06/21 11:49 Resp 18 04/06/21 11:49 BP 159/73 04/06/21 11:49 Pulse Ox 97 04/06/21 11:49 04/05/21 04/06/21 04/06/21 22:59 06:59 14:59 Intake Total 760 / 1880 860 / 2740 220 / 220 Output Total 400 / 400 Balance 760 / 1380 860 / 2240 -180 / -180 Weight last 48 hrs Weight 124.148 kg Physical Exam Narrative: EXAM NARRATIVE: Patient is laying supine Saturating well on room air Fluid overloaded Abdomen soft, bowel sounds present, Left leg wrapped Nonfocal neuro exam EOMI, PERRLA S1, S2 No audible stridor or wheezing Urinary Catheter Management: Martinez: Cath Placed During This Visit: yes, but has since been removed by the nurse Reason for Continuing Indwelling Catheter: Acute Urinary Retention or Obstruction Urinary Catheter Date of Insertion: 04/06/21 Urinary Catheter Time of Insertion: 09:52 Date Urinary Catheter Removed: 04/04/21 Time Urinary Catheter Discontinued: 09:00 Data : 04/06/21 05:43 04/06/21 05:43 Micro: Microbiology 04/05/21 20:30 MRSA Culture - Final Nose 03/30/21 15:00 Anaerobic Culture - Final Foot - #1 A&P Assessment and plan (1) S/P BKA (below knee amputation): Status: Acute (2) Foot osteomyelitis, left: Status: Acute (3) Diabetic peripheral neuropathy associated with type 2 diabetes mellitus: Status: Acute (4) Osteomyelitis: Status: Acute (5) Contrast dye induced nephropathy: Status: Acute (6) Hyperosmolar hyperglycemic state (HHS): Status: Acute (7) Diabetic foot infection: Status: Acute Plan Emphysematous osteomyelitis status post BKA 04/05 Plan to continue IV antibiotics until discharge continue MRSA and anaerobic coverage for now we will discharge him on p.o. antibiotic regimen Change diet to full liquid, pass flatus yesterday Contrast-induced nephropathy, this morning 400 cc urine noticed in the back, will keep him n.p.o. after midnight, in case he would require temporary dialysis catheter tomorrow morning Lasix has been discontinued Appreciate nephro recommendations Continue bicarb Hyponatremia: Patient does look fluid overloaded Minimal response to Lasix Hyperglycemia: Improved Full code Full liquid We will hold DVT prophylaxis at night Attestations Medical Necessity Statement*: Continue medical management Time Spent in Patient Care: 20mins Coding Level of Care Code Acute Advertising Teacher for Chg Fwd Diagnoses S/P BKA (below knee amputation) Z89.519 Foot osteomyelitis, left M86.9 Diabetic peripheral neuropathy associated with type 2 diabetes mellitus E11.42 Osteomyelitis M86.9 Contrast dye induced nephropathy N14.1; T50.8X5A Hyperosmolar hyperglycemic state (HHS) E11.00; E11.65 Diabetic foot infection E11.628; L08.9
[2021-04-06] MEDS: linezolid premix 600 MG/300 ML PREMIX 300 MG IV (13:10)
[2021-04-06] MEDS: nitroglycerin 1 gm/inch oint Pkt 0.5 INCH TOPICAL (13:16)
[2021-04-06] MEDS: piperacillin-tazobactam 3.375 GM in sodium chloride 0.9% (plus) 50 ML IV ×2 (13:33→22:39)
[2021-04-06] MEDS: ondansetron 2 mg/ML SDV 2 mL 4 MG IVP (14:39)
--- NOTE | 2021-04-06 14:45 | P.PN_ITS ---
Subjective Subjective: Interval history: Patient denies significant pain. He states that he did not have any nausea today but had an episode of emesis while I was in his room, feels better after the emesis. He had to have his Martinez catheter placed again today due to urinary retention Medications: Reviewed: Yes Vitals/I&O/Wt Last Vital Signs Temp 98.0 F 04/06/21 11:49 Pulse 79 04/06/21 11:49 Resp 18 04/06/21 11:49 BP 159/73 04/06/21 11:49 Pulse Ox 97 04/06/21 11:49 04/05/21 04/06/21 04/06/21 22:59 06:59 14:59 Intake Total 760 / 2740 860 / 2740 220 / 220 Output Total 400 / 400 Balance 760 / 2240 860 / 2240 -180 / -180 Weight last 48 hrs Weight 273 lb 11.2 oz Physical Exam Narrative: EXAM NARRATIVE: Left lower extremity: Dressings dry and intact in a knee immobilizer Urinary Catheter Management: Martinez: Cath Placed During This Visit: yes, but has since been removed by the nurse Reason for Continuing Indwelling Catheter: Acute Urinary Retention or Obstruction Urinary Catheter Date of Insertion: 04/06/21 Urinary Catheter Time of Insertion: 09:52 Date Urinary Catheter Removed: 04/04/21 Time Urinary Catheter Discontinued: 09:00 Data : 04/06/21 05:43 04/06/21 05:43 Micro: Microbiology 04/05/21 20:30 MRSA Culture - Final Nose 03/30/21 15:00 Anaerobic Culture - Final Foot - #1 A&P Assessment and plan (1) S/P BKA (below knee amputation): 56-year-old male with emphysematous osteomyelitis of his left foot status post left BKA. Pain is well controlled Continue IV Zosyn and Zyvox Daily labs Evaluation by physical therapy Patient had one episode of emesis, start Reglan 10 mg 3 times daily as needed Restart Protonix 40 mg IV twice daily Status: Acute (2) Acute renal failure superimposed on stage 3b chronic kidney disease: Patient BUN and creatinine has slowly been trending up, no evidence of uremia Recheck labs in the morning, evaluation by nephrology tomorrow a.m. to decide on dialysis catheter placement N.p.o. after midnight Status: Acute Attestations Medical Necessity Statement*: As per primary Coding Level of Care Code Acute Insurance Account Assistant for Chg Fwd Diagnoses S/P BKA (below knee amputation) Z89.519 Acute renal failure superimposed on stage 3b chronic kidney disease N17.9; N18.32
[2021-04-06] MEDS: morphine 4 mg/mL SDV 1 mL 2 MG IVP ×2 (14:50→20:22)
[2021-04-06 17:01] LABS: Glucose Point of Care 139 mg/dL (70-110)
[2021-04-06] MEDS: lidocaine 2% viscous 1.667 ML, diphenhydrAMINE oral liq 4.165 MG, aluminum-mag hydrox-s... MUCOUS MEM (17:33)
--- NOTE | 2021-04-06 18:36 | PM.PN ---
Subjective Subjective: Interval history: ID progress note. Vitals/I&O/Wt Last Vital Signs Temp 97.7 F 04/06/21 15:43 Pulse 74 04/06/21 15:43 Resp 17 04/06/21 17:40 BP 158/66 04/06/21 15:43 Pulse Ox 96 04/06/21 17:40 04/06/21 04/06/21 04/06/21 06:59 14:59 22:59 Intake Total 860 / 2740 1000 / 1000 290 / 1290 Output Total 400 / 400 Balance 860 / 2240 600 / 600 290 / 890 Weight last 48 hrs Weight 124.148 kg Physical Exam Narrative: EXAM NARRATIVE: GEN: Awake, alert and oriented, no acute distress CVS: S1S2 N RS: Bilateral scattered wheezing on exam Abd: Soft, nt/nd , bs+ GRIEVANCE AND APPEALS SPECIALIST: no focal neuro deficits Urinary Catheter Management: Martinez: Cath Placed During This Visit: yes, but has since been removed by the nurse Reason for Continuing Indwelling Catheter: Acute Urinary Retention or Obstruction Urinary Catheter Date of Insertion: 04/06/21 Urinary Catheter Time of Insertion: 09:52 Date Urinary Catheter Removed: 04/04/21 Time Urinary Catheter Discontinued: 09:00 Data : 04/23/21 05:58 04/23/21 05:58 Micro: Microbiology 04/05/21 20:30 MRSA Culture - Final Nose 03/30/21 15:00 Anaerobic Culture - Final Foot - #1 A&P Assessment and plan (1) Foot osteomyelitis, left: Status: Resolved Plan 56-year-old male with a past medical history of diabetes mellitus, hypertension currently admitted for DKA and worsening left lower extremity wound with evidence of emphysematous osteomyelitis on imaging. Hospital course additionally complicated by acute kidney injury, hyponatremia, peripheral artery disease with abnormal MNOAE on the left side evidence of peripheral artery disease. Given MRI findings of extensive cellulitis, intertarsal space infection, emphysematous osteomyelitis involving multiple bones including metatarsals and tarsals, anticipate inadequate control of infection with antibiotics alone. Unlikely that antibiotics without aggressive source control will be able to salvage his foot at this point in time. Patient has been evaluated by surgical services and is currently being planned for a BKA which is likely to be the most appropriate course for the patient. His wound has had a waxing and waning course in spite of being followed by wound care clinic over the past year and having received multiple courses of antibiotics in the past. Most recently patient had been on clindamycin as outpatient which may have clouded the cultures from I&D on March 30. Given recovery additionally of staff from outpatient cultures would treat MSSA as a contributing culprit here in addition to grp b Streptococcus. In the presence additionally of severe peripheral artery disease, suspect that infection may be polymicrobial and therefore recommend to continue broad-spectrum coverage with imipenem and linezolid (chosen over vancomycin due to ALESIA) for now while awaiting BKA. d/c clindamycin as no current evidence of necrotizing fasciitis or severe sepsis at this time. please send cultures from OR to decide most appropriate post op coverage and discharge antibiotics. Coding Level of Care Code Acute Qa Lead for Paula Ho Diagnoses Foot osteomyelitis, left M86.9
[2021-04-06 21:14] LABS: Glucose Point of Care 115 mg/dL (70-110)
[2021-04-06] MEDS: atorvastatin 40 mg Tablet 20 MG PO (22:37)
[2021-04-06] MEDS: insulin glargine 100 units/1 mL 25 UNIT SUBCUT (22:38)
[2021-04-07] VITALS (11 sets, daily range): BP systolic 103–133; BP diastolic 64–80; PULSE 91–114; RESP 16–20; TEMP 36.4–36.8; O2SAT 93–97
[2021-04-07] MEDS: nitroglycerin 1 gm/inch oint Pkt 0.5 INCH TOPICAL (00:44)
[2021-04-07] MEDS: linezolid premix 600 MG/300 ML PREMIX 300 MG IV ×2 (00:45→12:28)
[2021-04-07] MEDS: morphine 4 mg/mL SDV 1 mL 2 MG IVP ×2 (02:23→15:12)
[2021-04-07] MEDS: piperacillin-tazobactam 3.375 GM in sodium chloride 0.9% (plus) 50 ML IV ×3 (04:28→21:19)
[2021-04-07] MEDS: oxyCODONE-APAP 10-325 mg Tablet 1 TAB PO ×4 (04:29→22:50)
[2021-04-07 04:49] LABS: Basophils % 0.2 %; Eosinophils # 0.1 10^3/uL (0.0-0.8); Eosinophils % 0.5 %; Hematocrit 27.5 % (42.0-52.0); Hemoglobin 8.6 g/dL (11.7-16.6); Lymphocytes # 1.3 10^3/uL (0.8-4.8); Lymphocytes % 9.7 %; Mean Corpuscular HGB Conc 31.3 g/dL (30.0-36.0); Mean Corpuscular Hemoglobin 26.9 pg (28.0-34.0); Mean Corpuscular Volume 85.9 fl (80-94); Mean Platelet Volume 9.1 fL (7.4-10.4); Monocytes # 0.9 10^3/uL (0.2-0.9); Monocytes % 6.4 %; Neutrophils # 10.81 10^3/uL (1.8-7.7); Neutrophils % 81.5 %; Nucleated Red Blood Cells % 0 %; Platelet Count 353 10^3/cmm (130-400); Red Cell Distribution Width 14.2 % (12.1-15.1); White Blood Count 13.3 10^3/uL (4.0-10.0)
[2021-04-07 05:17] LABS: Anion Gap 15.7 (5-19); Blood Urea Nitrogen 73 mg/dL (6-20); Calcium 7.5 mg/dL (8.5-10.5); Carbon Dioxide 15 mmol/L (22-29); Chloride 97 mmol/L (98-107); Glomerular Filtration Rate 15.1 mL/min (90-130); Glucose 84 mg/dL (65-115); Osmolality Calculated 277 mOsm/kg (285-295); Potassium 4.7 mmol/L (3.5-5.1); Sodium 123 mmol/L (136-145)
[2021-04-07 06:45] LABS: Glucose Point of Care 88 mg/dL (70-110)
[2021-04-07] MEDS: oxybutynin 5 mg Tablet PO ×3 (09:02→21:19)
[2021-04-07] MEDS: pantoprazole 40 mg SDV IVP ×2 (09:02→22:00)
[2021-04-07] MEDS: sodium bicarbonate 650 mg Tablet PO (09:02)
[2021-04-07] MEDS: aspirin 81 mg EC Tablet PO (09:02)
[2021-04-07] MEDS: amlodipine 5 mg Tablet PO (09:02)
[2021-04-07] MEDS: b-complex-vitamin c Tablet 1 EACH PO (09:02)
[2021-04-07] MEDS: metoprolol tartrate 25 mg Tablet 12.5 MG PO ×2 (09:03→21:18)
[2021-04-07 09:08] LABS: Glucose Point of Care 71 mg/dL (70-110)
--- NOTE | 2021-04-07 09:20 | P.PN_ITS ---
Subjective Subjective: Interval history: lost his voice. no n/v/f/c/belcher/d. has some edema. no cp, no sob. + urinating Medications: Reviewed: Yes Medication Review Details: Current Medications Acetaminophen (Acetaminophen 325 Mg Tablet) 650 mg PO Q6H PRN PRN Reason: Mild/Mod Pain Or Temp >/= 101 Last Admin: 04/04/21 22:10 Dose: 650 mg Documented by: Amlodipine Besylate (Amlodipine 5 Mg Tablet) 5 mg PO DAILY [facility] Last Admin: 04/07/21 09:02 Dose: 5 mg Documented by: Aspirin (Aspirin 81 Mg Ec Tablet) 81 mg PO DAILY [facility] Last Admin: 04/07/21 09:02 Dose: 81 mg Documented by: Atorvastatin Calcium (Atorvastatin 40 Mg Tablet) 20 mg PO BEDTIME [facility] Last Admin: 04/06/21 22:37 Dose: 20 mg Documented by: Bisacodyl (Bisacodyl 5 Mg Tablet) 10 mg PO DAILY PRN; Protocol PRN Reason: Constipation (see protocol) Lidocaine HCl 1.667 ml/Diphenhydramine HCl 4.165 mg/Al Hydrox/Mg Hydrox/Simethicone 1.667 ml 0 ml MUCOUS MEM Q4H PRN PRN Reason: MOUTH PAIN Last Admin: 04/06/21 17:33 Dose: 7.5 ml Documented by: Dextrose (Dextrose 50% Syringe 50 Ml) 25 ml IVP ONCE PRN; Protocol PRN Reason: hypoglycemia protocol Dextrose (Dextrose 50% Syringe 50 Ml) 50 ml IVP PRN PRN; Protocol PRN Reason: hypoglycemia protocol Ergocalciferol (Ergocalciferol (Vitamin D2) 50,000 Unit Capsule) 50,000 unit PO Q7D [facility] Last Admin: 04/03/21 11:22 Dose: 50,000 unit Documented by: Glucagon (Glucagon 1 Mg/Ml Inj 1 Ml) 1 mg IM ONCE PRN; Protocol PRN Reason: Adult Acute Hypoglycemia Prot Heparin Sodium (Porcine) (Heparin 5,000 Unit/Ml Inj 1 Ml) 5,000 unit SUBCUT Q8H [facility] Last Admin: 04/06/21 13:14 Dose: 5,000 unit Documented by: Hydralazine HCl (Hydralazine 20 Mg/Ml Inj 1 Ml) 10 mg IVP Q4H PRN PRN Reason: if sbp>180 Dextrose (D5w) 500 mls @ 100 mls/hr IV ONCE PRN; Protocol PRN Reason: Adult Acute Hypoglycemia Prot Linezolid (Zyvox Premix) 600 mg in 300 mls @ 300 mls/hr IV Q12H [facility]; Protocol Last Infusion: 04/07/21 02:57 Dose: Infused Documented by: Piperacillin Sod/Tazobactam (Sod 3.375 gm/ Sodium Chloride) 50 mls @ 12.5 mls/hr IV Q8H [facility]; Protocol Last Infusion: 04/07/21 09:08 Dose: Infused Documented by: Insulin Glargine (Insulin Glargine 100 Units/1 Ml) 25 unit SUBCUT BID@0900,2100 [facility] Last Admin: 04/06/21 22:38 Dose: 25 unit Documented by: Insulin Human Lispro (Insulin Lispro 100 Unit/1 Ml) 0 unit SUBCUT TIDWM [facility]; Protocol Last Admin: 04/07/21 07:32 Dose: Not Given Documented by: Metoclopramide HCl (Metoclopramide 5 Mg/Ml Sdv 2 Ml) 10 mg IVP Q6H PRN PRN Reason: NAUSEA AND VOMITING Last Admin: 03/30/21 11:12 Dose: 10 mg Documented by: Metoprolol Tartrate (Metoprolol Tartrate 25 Mg Tablet) 12.5 mg PO BID@0900,2100 [facility] Last Admin: 04/07/21 09:03 Dose: 12.5 mg Documented by: Morphine Sulfate (Morphine 4 Mg/Ml Sdv 1 Ml) 2 mg IVP Q1H PRN PRN Reason: SEVERE PAIN Last Admin: 04/07/21 02:23 Dose: 2 mg Documented by: Multivitamins (X-Hdfgehe-Ezxwmuy C Tablet) 1 each PO DAILY [facility] Last Admin: 04/07/21 09:02 Dose: 1 each Documented by: Nitroglycerin (Nitroglycerin 1 Gm/Inch Oint Pkt) 0.5 inch TOPICAL Q6H [facility] Last Admin: 04/07/21 05:53 Dose: Not Given Documented by: Ondansetron HCl (Ondansetron 2 Mg/Ml Sdv 2 Ml) 4 mg IVP Q8H PRN PRN Reason: vomiting, or N/V if npo Last Admin: 04/06/21 14:39 Dose: 4 mg Documented by: Oxybutynin Chloride (Oxybutynin 5 Mg Tablet) 5 mg PO TID [facility] Last Admin: 04/07/21 09:02 Dose: 5 mg Documented by: Oxycodone/Acetaminophen (Oxycodone-Apap 10-325 Mg Tablet) 1 tab PO Q6H [facility] Last Admin: 04/07/21 04:29 Dose: 1 tab Documented by: Pantoprazole Sodium (Pantoprazole 40 Mg Sdv) 40 mg IVP Q12H [facility] Last Admin: 04/07/21 09:02 Dose: 40 mg Documented by: Sodium Bicarbonate (Sodium Bicarbonate 650 Mg Tablet) 650 mg PO TID [facility] Last Admin: 04/07/21 09:02 Dose: 650 mg Documented by: Vitals/I&O/Wt Last Vital Signs Temp 97.5 F L 04/07/21 04:00 Pulse 92 04/07/21 05:53 Resp 17 04/07/21 04:29 BP 110/72 04/07/21 05:53 Pulse Ox 97 04/07/21 04:00 04/06/21 04/07/21 04/07/21 22:59 06:59 14:59 Intake Total 770 / 1770 350 / 2120 50 / 50 Output Total 625 / 625 Balance 770 / 1370 350 / 1720 -575 / -575 Weight last 48 hrs Weight 124.148 kg Physical Exam Narrative: EXAM NARRATIVE: comfortable, NARD vss heent- nc/at, eomi neck no jvp lung cta b/l heart reg, no rub abd soft, nt, nd, + bs ext LLE BKA, 1+ RLE edema neuro a,a, o x 3 Urinary Catheter Management: Martinez: Cath Placed During This Visit: yes, but has since been removed by the nurse Reason for Continuing Indwelling Catheter: Acute Urinary Retention or Obstruction Urinary Catheter Date of Insertion: 04/06/21 Urinary Catheter Time of Insertion: 09:52 Date Urinary Catheter Removed: 04/04/21 Time Urinary Catheter Discontinued: 09:00 Data : 04/07/21 03:35 04/07/21 03:35 Micro: Microbiology 04/05/21 20:30 MRSA Culture - Final Nose 03/30/21 15:00 Anaerobic Culture - Final Foot - #1 A&P Assessment and plan (1) Acute renal failure superimposed on stage 3b chronic kidney disease: 56 yr old male 1. ALESIA- likely from PHI, dm infection, Q AIN or infection related GN -some obstruction -imaging w/o hydronephrosis -low ur na -ua w/ blood, prot, ketone- - cr and uop improving -give ivf and albumin -phos binder 2. hyponatremia- monitor w/ fluid restriction -salt tabs -htn goes against adrenal insuf -normal tsh -give albumin 3. met acidosis- na bicarb ivf 4. DM- gluc control per medicine 5. DM foot OM-s/p 6. HTN - avoid ARB/ ARIANNE-I/ ALDACTONE w/ ALESIA -BP low 7. hgb ok 8. replace vit d seen and examined w/ RN- telehealth visit -time spent 30 minutes Status: Acute Plan as above Attestations Medical Necessity Statement*: alesia, hyponatremia, LLE BKA Time Spent in Patient Care: 16 - 35 minutes (>than 50% of time spent in counselling and/or direct pt care on unit) . Coding Level of Care Code Acute Windows Server Support Technician for Paula Ho Diagnoses Acute renal failure superimposed on stage 3b chronic kidney disease N17.9; N18.32
--- NOTE | 2021-04-07 09:29 | XR_ITS ---
WS: [id number] XR chest 2V insp/exp 24137 REASON FOR EXAM: hyponatremia, cough FINDINGS: The inspiration/expiration examinations demonstrate no pneumothorax or air trapping. There may be int erstitial reticular lung opacities in the right lower lung compatible with subacute pneumonitis. Equi vocal similar findings on the left. PICC line at the atrial level. XR/XR chest 2V insp/exp [id number] IMPRESSION: No pneumothorax or air trapping. There are somewhat equivocal lung opacities noted which may represent subacute pneumonitis, most notably in the right.
--- NOTE | 2021-04-07 10:47 | P.PN_ITS ---
Subjective Subjective: Interval history: Patient's urine output is improved, denies any nausea or vomiting, pain is reasonably well controlled Medications: Reviewed: Yes Vitals/I&O/Wt Last Vital Signs Temp 97.5 F L 04/07/21 09:00 Pulse 93 04/07/21 09:00 Resp 20 H 04/07/21 09:00 BP 133/77 04/07/21 09:00 Pulse Ox 97 04/07/21 09:00 04/06/21 04/07/21 04/07/21 22:59 06:59 14:59 Intake Total 770 / 2120 350 / 2120 50 / 50 Output Total 625 / 625 Balance 770 / 1095 350 / 1095 -575 / -575 Weight last 48 hrs Weight 274 lb 8 oz Weight 273 lb 11.2 oz Physical Exam Narrative: EXAM NARRATIVE: Abdomen: Soft Left BKA: In knee brace, dressings dry and intact Urinary Catheter Management: Martinez: Cath Placed During This Visit: yes, but has since been removed by the nurse Reason for Continuing Indwelling Catheter: Acute Urinary Retention or Obstruction Urinary Catheter Date of Insertion: 04/06/21 Urinary Catheter Time of Insertion: 09:52 Date Urinary Catheter Removed: 04/04/21 Time Urinary Catheter Discontinued: 09:00 Data : 04/07/21 03:35 04/07/21 03:35 Micro: Microbiology 04/05/21 20:30 MRSA Culture - Final Nose 03/30/21 15:00 Anaerobic Culture - Final Foot - #1 A&P Assessment and plan (1) S/P BKA (below knee amputation): 56-year-old male with emphysematous osteomyelitis of his left foot status post left BKA. Pain is well controlled Continue IV Zosyn and Zyvox Daily labs Continue Protonix 40 mg twice daily ADA diet I will change the dressings tomorrow, continue with knee brace and evaluation by PT Status: Acute (2) Acute renal failure superimposed on stage 3b chronic kidney disease: Improved, continue ADA diet Patient does not need a dialysis catheter at this point Status: Acute Attestations 2 Medical Necessity Statement*: As per primary Coding Level of Care Code Acute Senior Application Security Consultant for [facility] Fwd Diagnoses S/P BKA (below knee amputation) Z89.519 Acute renal failure superimposed on stage 3b chronic kidney disease N17.9; N18.32
[2021-04-07] MEDS: insulin glargine 100 units/1 mL 25 UNIT SUBCUT ×2 (10:49→21:20)
[2021-04-07 12:19] LABS: Glucose Point of Care 103 mg/dL (70-110)
--- NOTE | 2021-04-07 12:51 | P.PN_ITS ---
Subjective Subjective: Interval history: This morning patient is stating that he is feeling fine, he was n.p.o., this morning he was started on his consistent carb diet, he is able to pass some fl atus no bowel movement yet, abdomen is soft Asked PT to evaluate him today as well Continue IV antibiotics Appreciate nephro recommendations Normotensive Afebrile Leukocytosis 13,000 Hemoglobin stable at 8.6, Vitals/I&O/Wt Last Vital Signs Temp 97.5 F L 04/07/21 09:00 Pulse 93 04/07/21 09:00 Resp 18 04/07/21 12:27 BP 133/77 04/07/21 09:00 Pulse Ox 97 04/07/21 09:00 04/06/21 04/07/21 04/07/21 22:59 06:59 14:59 Intake Total 770 / 1770 350 / 2120 410 / 410 Output Total 625 / 625 Balance 770 / 1370 350 / 1720 -215 / -215 Weight last 48 hrs Weight 124.511 kg Weight 124.148 kg Physical Exam Narrative: EXAM NARRATIVE: Patient looks fluid overloaded Laying comfortably in his bed Saturating well on room air Upper extremities edematous Right leg edema noted Abdomen soft Bowel sound present Nontender EOMI, PERRLA Nonfocal neuro exam Urinary Catheter Management: Martinez: Cath Placed During This Visit: yes, but has since been removed by the nurse Reason for Continuing Indwelling Catheter: Acute Urinary Retention or Obstruction Urinary Catheter Date of Insertion: 04/06/21 Urinary Catheter Time of Insertion: 09:52 Date Urinary Catheter Removed: 04/04/21 Time Urinary Catheter Discontinued: 09:00 Data : 04/07/21 03:35 04/07/21 03:35 Micro: Microbiology 04/05/21 20:30 MRSA Culture - Final Nose 03/30/21 15:00 Anaerobic Culture - Final Foot - #1 A&P Assessment and plan (1) S/P BKA (below knee amputation): Status: Acute (2) Foot osteomyelitis, left: Status: Acute (3) Diabetic peripheral neuropathy associated with type 2 diabetes mellitus: Status: Acute (4) Contrast dye induced nephropathy: Status: Acute (5) Osteomyelitis: Status: Acute (6) UTI (urinary tract infection): Status: Acute (7) Peripheral arterial disease: Status: Acute (8) Diabetes: Status: Acute (9) Essential hypertension: Status: Acute Plan Patient is doing well after BKA Passing flatus Diet advanced Consistent carb Sliding scale We will ask PT to evaluate him today to see whether he would benefit from home health services versus prison Trabeculectomy K from 03/30, blood cultures negative to date, patient is afebrile plan to switch him to p.o. antibiotics at the time of discharge Contrast-induced nephropathy Appreciate nephro recommendations Nonoliguric No need of dialysis Albumin, bicarb added Dr. 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
[2021-04-07] MEDS: sodium bicarbonate 650 mg Tablet 1300 MG PO ×2 (15:09→21:19)
[2021-04-07 17:24] LABS: Glucose Point of Care 137 mg/dL (70-110)
--- NOTE | 2021-04-07 19:31 | PC.NURSE ---
i reported high pulse 114 to nurse
[2021-04-07 21:00] LABS: Glucose Point of Care 102 mg/dL (70-110)
[2021-04-07] MEDS: atorvastatin 40 mg Tablet 20 MG PO (21:19)
[2021-04-08] VITALS (9 sets, daily range): BP systolic 100–160; BP diastolic 60–85; PULSE 83–116; RESP 16–20; TEMP 36.7–36.9; O2SAT 93–97
--- NOTE | 2021-04-08 00:06 | PC.NURSE ---
i reported high pulse 116 to nurse
[2021-04-08] MEDS: linezolid premix 600 MG/300 ML PREMIX 300 MG IV ×2 (00:55→12:29)
--- NOTE | 2021-04-08 03:26 | PC.NURSE ---
i reported high pulse 110 to nurse
[2021-04-08] MEDS: piperacillin-tazobactam 3.375 GM in sodium chloride 0.9% (plus) 50 ML IV ×3 (04:37→22:33)
[2021-04-08] MEDS: oxyCODONE-APAP 10-325 mg Tablet 1 TAB PO ×4 (04:37→22:30)
[2021-04-08 05:16] LABS: Alanine Aminotransferase 7 U/L (0-41); Albumin Level 2.8 g/dL (3.5-5.2); Alkaline Phosphatase 56 IU/L (40-130); Anion Gap 16.1 (5-19); Aspartate Amino Transferase 30 U/L (0-40); Blood Urea Nitrogen 79 mg/dL (6-20); Calcium 6.6 mg/dL (8.5-10.5); Carbon Dioxide 15 mmol/L (22-29); Chloride 94 mmol/L (98-107); Globulin 3.1 g/dL (1.3-4.6); Glomerular Filtration Rate 12.9 mL/min (90-130); Glucose 174 mg/dL (65-115); Magnesium 3.2 mg/dL (1.7-2.3); Osmolality Calculated 278 mOsm/kg (285-295); Phosphorus 7.2 mg/dL (2.5-4.5); Potassium 5.1 mmol/L (3.5-5.1); Sodium 120 mmol/L (136-145); Total Bilirubin 0.2 mg/dL (0.15-1.2); Total Protein 5.9 g/dL (6.6-8.7); Uric Acid 12.9 mg/dL (3.4-7.0)
[2021-04-08 06:36] LABS: Glucose Point of Care 89 mg/dL (70-110)
--- NOTE | 2021-04-08 08:25 | PM.PN ---
Subjective Subjective: Interval history: weak, swollen, poor appetite. denies sob. no cp, no belcher Medications: Reviewed: Yes Medication Review Details: Current Medications Acetaminophen (Acetaminophen 325 Mg Tablet) 650 mg PO Q6H PRN PRN Reason: Mild/Mod Pain Or Temp >/= 101 Last Admin: 04/04/21 22:10 Dose: 650 mg Documented by: Amlodipine Besylate (Amlodipine 5 Mg Tablet) 5 mg PO DAILY [facility] Last Admin: 04/07/21 09:02 Dose: 5 mg Documented by: Aspirin (Aspirin 81 Mg Ec Tablet) 81 mg PO DAILY [facility] Last Admin: 04/07/21 09:02 Dose: 81 mg Documented by: Atorvastatin Calcium (Atorvastatin 40 Mg Tablet) 20 mg PO BEDTIME [facility] Last Admin: 04/07/21 21:19 Dose: 20 mg Documented by: Bisacodyl (Bisacodyl 5 Mg Tablet) 10 mg PO DAILY PRN; Protocol PRN Reason: Constipation (see protocol) Lidocaine HCl 1.667 ml/Diphenhydramine HCl 4.165 mg/Al Hydrox/Mg Hydrox/Simethicone 1.667 ml 0 ml MUCOUS MEM Q4H PRN PRN Reason: MOUTH PAIN Last Admin: 04/06/21 17:33 Dose: 7.5 ml Documented by: Dextrose (Dextrose 50% Syringe 50 Ml) 25 ml IVP ONCE PRN; Protocol PRN Reason: hypoglycemia protocol Dextrose (Dextrose 50% Syringe 50 Ml) 50 ml IVP PRN PRN; Protocol PRN Reason: hypoglycemia protocol Ergocalciferol (Ergocalciferol (Vitamin D2) 50,000 Unit Capsule) 50,000 unit PO Q7D [facility] Last Admin: 04/03/21 11:22 Dose: 50,000 unit Documented by: Glucagon (Glucagon 1 Mg/Ml Inj 1 Ml) 1 mg IM ONCE PRN; Protocol PRN Reason: Adult Acute Hypoglycemia Prot Heparin Sodium (Porcine) (Heparin 5,000 Unit/Ml Inj 1 Ml) 5,000 unit SUBCUT Q8H [facility] Last Admin: 04/06/21 13:14 Dose: 5,000 unit Documented by: Hydralazine HCl (Hydralazine 20 Mg/Ml Inj 1 Ml) 10 mg IVP Q4H PRN PRN Reason: if sbp>180 Dextrose (D5w) 500 mls @ 100 mls/hr IV ONCE PRN; Protocol PRN Reason: Adult Acute Hypoglycemia Prot Linezolid (Zyvox Premix) 600 mg in 300 mls @ 300 mls/hr IV Q12H [facility]; Protocol Last Infusion: 04/08/21 02:49 Dose: Infused Documented by: Piperacillin Sod/Tazobactam (Sod 3.375 gm/ Sodium Chloride) 50 mls @ 12.5 mls/hr IV Q8H [facility]; Protocol Last Admin: 04/08/21 04:37 Dose: 12.5 mls/hr Documented by: Albumin Human (Albumin) 25 gm in 100 mls @ 60 mls/hr IV Q8H [facility] Last Infusion: 04/08/21 04:45 Dose: Infused Documented by: Insulin Glargine (Insulin Glargine 100 Units/1 Ml) 25 unit SUBCUT BID@0900,2100 [facility] Last Admin: 04/07/21 21:20 Dose: 25 unit Documented by: Insulin Human Lispro (Insulin Lispro 100 Unit/1 Ml) 0 unit SUBCUT TIDWM [facility]; Protocol Last Admin: 04/07/21 17:40 Dose: Not Given Documented by: Metoclopramide HCl (Metoclopramide 5 Mg/Ml Sdv 2 Ml) 10 mg IVP Q6H PRN PRN Reason: NAUSEA AND VOMITING Last Admin: 03/30/21 11:12 Dose: 10 mg Documented by: Metoprolol Tartrate (Metoprolol Tartrate 25 Mg Tablet) 12.5 mg PO BID@0900,2100 [facility] Last Admin: 04/07/21 21:18 Dose: 12.5 mg Documented by: Morphine Sulfate (Morphine 4 Mg/Ml Sdv 1 Ml) 2 mg IVP Q1H PRN PRN Reason: SEVERE PAIN Last Admin: 04/07/21 15:12 Dose: 2 mg Documented by: Multivitamins (T-Exgbsvw-Jjzdkzc C Tablet) 1 each PO DAILY [facility] Last Admin: 04/07/21 09:02 Dose: 1 each Documented by: Nitroglycerin (Nitroglycerin 1 Gm/Inch Oint Pkt) 0.5 inch TOPICAL Q6H [facility] Last Admin: 04/08/21 04:42 Dose: Not Given Documented by: Ondansetron HCl (Ondansetron 2 Mg/Ml Sdv 2 Ml) 4 mg IVP Q8H PRN PRN Reason: vomiting, or N/V if npo Last Admin: 04/06/21 14:39 Dose: 4 mg Documented by: Oxybutynin Chloride (Oxybutynin 5 Mg Tablet) 5 mg PO TID [facility] Last Admin: 04/07/21 21:19 Dose: 5 mg Documented by: Oxycodone/Acetaminophen (Oxycodone-Apap 10-325 Mg Tablet) 1 tab PO Q6H [facility] Last Admin: 04/08/21 04:37 Dose: 1 tab Documented by: Pantoprazole Sodium (Pantoprazole 40 Mg Sdv) 40 mg IVP Q12H [facility] Last Admin: 04/07/21 22:00 Dose: 40 mg Documented by: Sodium Bicarbonate (Sodium Bicarbonate 650 Mg Tablet) 1,300 mg PO TID [facility] Last Admin: 04/07/21 21:19 Dose: 1,300 mg Documented by: Vitals/I&O/Wt Last Vital Signs Temp 98.1 F 04/08/21 08:00 Pulse 100 04/08/21 08:00 Resp 18 04/08/21 08:00 BP 110/69 04/08/21 08:00 Pulse Ox 96 04/08/21 08:00 04/07/21 04/08/21 04/08/21 22:59 06:59 14:59 Intake Total 810 / 1320 690 / 2010 Output Total 275 / 900 420 / 1320 Balance 535 / 420 270 / 690 Weight last 48 hrs Weight 126.28 kg Weight 124.511 kg Physical Exam Narrative: EXAM NARRATIVE: comfortable, NARD, swollen vss heent- nc/at, eomi neck no jvp lung cta b/l heart reg, no rub abd soft, nt, nd, + bs ext LLE BKA, 2+ RLE edema neuro a,a, o x 3 Urinary Catheter Management: Martinez: Cath Placed During This Visit: yes, but has since been removed by the nurse Reason for Continuing Indwelling Catheter: Acute Urinary Retention or Obstruction Urinary Catheter Date of Insertion: 04/06/21 Urinary Catheter Time of Insertion: 09:52 Date Urinary Catheter Removed: 04/04/21 Time Urinary Catheter Discontinued: 09:00 Data : 04/07/21 03:35 04/08/21 04:50 A&P Assessment and plan (1) Acute renal failure superimposed on stage 3b chronic kidney disease: 56 yr old male 1. ALESIA- likely from PHI, dm infection, Q AIN or infection related GN -some obstruction -imaging w/o hydronephrosis -low ur na -ua w/ blood, prot, ketone- - he is urinating. however he is swollen, hyponatremia, and met acidosis -d/c ivf -start lasix and albumin -phos binder -if does not improve, may need dialysis soon. -discussed risks and benefits of dialysis w/ pt. Pt consents to HD if needed 2. hyponatremia- monitor w/ fluid restriction -salt tabs -htn goes against adrenal insuf -normal tsh -give albumin and lasix 3. met acidosis- watch on lasix. may need dialysis soon 4. DM- gluc control per medicine 5. DM foot OM-s/p 6. HTN - avoid ARB/ ARIANNE-I/ ALDACTONE w/ ALESIA -BP low 7. hgb stable at 8.6- dropped w/ BKA- ALANIS 8. replace vit d seen and examined w/ RN- telehealth visit -time spent 30 minutes Status: Acute Plan as above Attestations Medical Necessity Statement*: alesia, hyponatremia, anasarca Time Spent in Patient Care: 16 - 35 minutes (>than 50% of time spent in counselling and/or direct pt care on unit). 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
[2021-04-08] MEDS: metoprolol tartrate 25 mg Tablet 12.5 MG PO ×2 (09:08→22:29)
[2021-04-08] MEDS: pantoprazole 40 mg SDV IVP ×2 (09:08→23:10)
[2021-04-08] MEDS: b-complex-vitamin c Tablet 1 EACH PO (09:08)
[2021-04-08] MEDS: FUROsemide 10 mg/mL SDV 4mL 40 MG IVP ×2 (09:08→23:10)
[2021-04-08] MEDS: sodium bicarbonate 650 mg Tablet 1300 MG PO ×3 (09:09→22:31)
[2021-04-08] MEDS: aspirin 81 mg EC Tablet PO (09:09)
[2021-04-08] MEDS: epoetin alfa 1000 Unit/0.05 mL (ESRD) 20000 UNIT SUBCUT (09:09)
[2021-04-08] MEDS: amlodipine 5 mg Tablet PO (09:09)
[2021-04-08] MEDS: oxybutynin 5 mg Tablet PO ×3 (09:10→22:32)
[2021-04-08 10:06] LABS: Ferritin 539 ng/mL (30-400); Iron 25 ug/dL (59-158); Total Iron Binding Capacity 100 mcg/dl; Unsaturated Iron Binding 75 ug/dL (112-347)
[2021-04-08 11:15] LABS: Glucose Point of Care 69 mg/dL (70-110)
--- NOTE | 2021-04-08 11:37 | P.PN_ITS ---
Subjective Subjective: Interval history: Patient is endorsing passing flatus, creatinine is worsening, nonoliguric, I have requested Dr. Limon for temporary dialysis catheter placement, will sche dule him for morning Spoke with Dr. Norris Today plan is to use albumin and diuretics for this fluid overloaded state creatinine 4.7 Sodium 120 Albumin 2.8 Vitals/I&O/Wt Last Vital Signs Temp 98.4 F 04/08/21 11:36 Pulse 83 04/08/21 11:36 Resp 16 04/08/21 11:36 BP 116/69 04/08/21 11:36 Pulse Ox 94 04/08/21 11:36 04/07/21 04/08/21 04/08/21 22:59 06:59 14:59 Intake Total 810 / 1320 690 / 2010 480 / 480 Output Total 275 / 900 420 / 1320 Balance 535 / 420 270 / 690 480 / 480 Weight last 48 hrs Weight 126.28 kg Weight 124.511 kg Physical Exam Narrative: EXAM NARRATIVE: Patient lying comfortably in his bed Fluid overloaded Puffy arms and right leg Left leg wrapped in tight dressing No active soaking or drainage noted S1, S2 Abdomen distended bowel sound present Nonfocal neuro exam No signs of audible stridor or wheezing Saturating well on room air Urinary Catheter Management: Martinez: Cath Placed During This Visit: yes, but has since been removed by the nurse Reason for Continuing Indwelling Catheter: Acute Urinary Retention or Obstruction Urinary Catheter Date of Insertion: 04/06/21 Urinary Catheter Time of Insertion: 09:52 Date Urinary Catheter Removed: 04/04/21 Time Urinary Catheter Discontinued: 09:00 Data : 04/07/21 03:35 04/08/21 04:50 A&P Assessment and plan (1) S/P BKA (below knee amputation): Status: Acute (2) Foot osteomyelitis, left: Status: Acute (3) Diabetic peripheral neuropathy associated with type 2 diabetes mellitus: Status: Acute (4) Osteomyelitis: Status: Acute (5) Contrast dye induced nephropathy: Status: Acute (6) Hypokalemia: Status: Acute (7) Peripheral arterial disease: Status: Acute (8) Hyperosmolar hyperglycemic state (HHS): Status: Acute (9) Essential hypertension: Status: Acute Plan Emphysematous osteomyelitis Status post BKA No postoperative complications Plan is to continue IV antibiotics until discharge and then switch to p.o. Contrast-induced nephropathy: Creatinine worsening, nonoliguric, requested Dr. Limon for placement of crepitus catheter, Dr. Limon might plan for morning Albumin and diuretic regimen as per nephro Constipation: We will use lactulose today, he is passing flatus, tolerating his diet no active emesis Type 2 diabetes, Patient was hypoglycemic this morning, I will decrease his Lantus dose Uric acid 12.9 No active acute gout attack Hyponatremia related to fluid overloaded state Consistent carb diet Full code DVT prophylaxis on board Attestations Medical Necessity Statement*: Continue medical management Time Spent in Patient Care: 15 Coding Level of Care Code Acute Examination Grader for g Fwd Diagnoses S/P BKA (below knee amputation) Z89.519 Foot osteomyelitis, left M86.9 Diabetic peripheral neuropathy associated with type 2 diabetes mellitus E11.42 Osteomyelitis M86.9 Contrast dye induced nephropathy N14.1; T50.8X5A Hypokalemia E87.6 Peripheral arterial disease I73.9 Hyperosmolar hyperglycemic state (HHS) E11.00; E11.65 Essential hypertension I10
[2021-04-08] MEDS: lactulose oral liq 20 gm/30 mL UDC 10 GM PO (13:22)
[2021-04-08] MEDS: heparin 5,000 unit/mL INJ 1 mL 5000 UNIT SUBCUT (13:23)
[2021-04-08 13:47] LABS: Alanine Aminotransferase 7 U/L (0-41); Alkaline Phosphatase 61 IU/L (40-130); Anion Gap 16.6 (5-19); Aspartate Amino Transferase 26 U/L (0-40); Blood Urea Nitrogen 76 mg/dL (6-20); Calcium 7.9 mg/dL (8.5-10.5); Carbon Dioxide 16 mmol/L (22-29); Chloride 92 mmol/L (98-107); Globulin 3.3 g/dL (1.3-4.6); Glomerular Filtration Rate 13.5 mL/min (90-130); Glucose 116 mg/dL (65-115); Osmolality Calculated 272 mOsm/kg (285-295); Potassium 5.6 mmol/L (3.5-5.1); Total Bilirubin 0.2 mg/dL (0.15-1.2); Total Protein 6.3 g/dL (6.6-8.7)
[2021-04-08 14:42] LABS: Sodium 119 mmol/L (136-145)
[2021-04-08] MEDS: morphine 4 mg/mL SDV 1 mL 2 MG IVP (15:46)
[2021-04-08 15:53] LABS: Hepatitis B Surface Antigen Non-Reactive (Nonreactive)
--- NOTE | 2021-04-08 16:12 | XR_ITS ---
WS: [id number] XR chest 1V portable [id number] REASON FOR EXAM: DIALYSIS CATH PLACEMENT FINDINGS: Right transjugular dialysis catheter. The radiopaque marker in the catheter is in the superior vena c ashley at the T6 level. The dialysis catheter lies adjacent to the right arm PICC line. No acute pulmonary parenchymal or pleural disease is identified. No right pneumothorax. XR/XR chest 1V portable [id number] IMPRESSION: Right jugular dialysis catheter placement as above.
--- NOTE | 2021-04-08 16:36 | PM.PN ---
Subjective Subjective: Interval history: Patient is in good spirits, denies significant pain, nausea or vomiting Medications: Reviewed: Yes Vitals/I&O/Wt Last Vital Signs Temp 98.4 F 04/08/21 16:00 Pulse 95 04/08/21 16:00 Resp 16 04/08/21 16:00 BP 112/70 04/08/21 16:00 Pulse Ox 97 04/08/21 16:21 04/08/21 04/08/21 04/08/21 06:59 14:59 22:59 Intake Total 690 / 2009 1170 / 1170 Output Total 420 / 1320 Balance 270 / 690 1170 / 1170 Weight last 48 hrs Weight 278 lb 6.4 oz Weight 274 lb 8 oz Physical Exam Narrative: EXAM NARRATIVE: Left BKA stump: No evidence of cellulitis or hematoma, incision clean dry and intact Urinary Catheter Management: Martinez: Cath Placed During This Visit: yes, but has since been removed by the nurse Reason for Continuing Indwelling Catheter: Acute Urinary Retention or Obstruction Urinary Catheter Date of Insertion: 04/06/21 Urinary Catheter Time of Insertion: 09:52 Date Urinary Catheter Removed: 04/04/21 Time Urinary Catheter Discontinued: 09:00 Data : 04/07/21 03:35 04/08/21 13:05 A&P Assessment and plan (1) S/P BKA (below knee amputation): Status post BKA for emphysematous osteomyelitis, stump looks healthy and viable Daily dressing change with ABD, Kerlix, Sylvester wrap Knee immobilizer to prevent flexion contracture Continue PT Status: Acute (2) Acute renal failure superimposed on stage 3b chronic kidney disease: Patient has now become hyponatremic with sodium of 119, creatinine is at 4.5 Plan for placement of temporary dialysis catheter at the bedside today for dialysis later today Procedure, risks, benefits and alternatives have been discussed with the patient who wishes to proceed with surgery. Status: Acute Attestations Medical Necessity Statement*: Status post BKA with acute on chronic renal failure requiring dialysis Coding Level of Care Code Acute Surgical Consultant for g Fwd Diagnoses S/P BKA (below knee amputation) Z89.519 Acute renal failure superimposed on stage 3b chronic kidney disease N17.9; N18.32
--- NOTE | 2021-04-08 16:43 | PM.ACPR ---
Procedure/Consent Time out: Time Out Performed: Yes Consent: Consent for Procedure: Consent obtained from patient Procedure Narrative: Preoperative diagnosis: Acute renal failure requiring emergent dialysis Postoperative diagnosis: Same Procedure: Placement of Mahurkar catheter in the right internal jugular vein Ultrasound guidance and interpretation to access to right internal jugular vein Surgeon: Braxton Anesthesia: Local Description of procedure: The patient's right neck and chest was prepped and draped in a sterile manner. An ultrasound of the right internal jugular vein revealed patent veins with no evidence of thrombus. 5 mL of 1% lidocaine was infiltrated at the site of planned entry, an introducer needle was used to access the right internal jugular vein under ultrasound guidance. Guidewire was passed through the introducer needle and the introducer needle was removed. Serial dilators were passed over the guidewire after the skin incision was extended using 11 blade and Mahurkar catheter was then passed over the guidewire and the guidewire was removed. The catheter was sutured to the skin using 2-0 Ethilon suture. Sterile dressings were applied. Postop procedure chest x-ray showed no evidence of pneumothorax and good positioning of the catheter. Acute Procedures Epistaxis Control: Time out performed: Yes
[2021-04-08 16:51] LABS: Hepatitis B Surface AB 3.5 (11.5-1000); Hepatitis C Virus Antibody Non-Reactive (Nonreactive)
[2021-04-08] MEDS: calcium gluconate 0.9% NaCL 1 GM/50 ML PREMIX IV (16:59)
[2021-04-08 17:11] LABS: Glucose Point of Care 233 mg/dL (70-110)
[2021-04-08] MEDS: sodium polystyrene sulfonate 15 gm/60 mL Btl 30 GM PO (17:51)
--- NOTE | 2021-04-08 19:06 | PC.NURSE ---
ROUNDING/SHIFT CHANGE Pt is in dialysis
--- NOTE | 2021-04-08 22:20 | PC.NURSE ---
RETURN FROM DIALYSIS Pt returned to room from dialysis per bed. Says believes is feeling some better. Dialysis nurse reported removal of 1.5l with dialysis. Incont large loose BM on return to room and was cleaned and changed. Some SOB with exertion. O2 in pace at 3l per NC. Martinez draining dark elza urine. Emptied 600ml at this time. pm meds being given. Accucheck was only 86. Pt declined pm Jazmine rivera
[2021-04-08 22:26] LABS: Glucose Point of Care 86 mg/dL (70-110)
[2021-04-08] MEDS: atorvastatin 40 mg Tablet 20 MG PO (22:29)
[2021-04-09] VITALS (12 sets, daily range): BP systolic 115–163; BP diastolic 73–89; PULSE 89–112; RESP 15–20; TEMP 36.5–37.1; O2SAT 91–96
--- NOTE | 2021-04-09 | USCV_ITS ---
UE Venous Duplex RIGHT Martir Kruger Age: 56 Gender: M : 1965 Exam Date: 04/09/2021 14:40 Ordering Phys: Woodrow Metzger MD Technologist: JASE Exam Location: [facility] [place] Indication: RT Arm Swelling HISTORY: Upper extremity swelling. Upper extremity edema. PROCEDURES: Venous duplex imaging was performed in only the right upper extremity. The following venous structures were evaluated: internal jugular vein, subclavian vein, axillary vein, and brachial veins. In addition, the basilic vein, cephalic vein, radial vein, and ulnar vein. Serial compression, augmentation maneuvers, and spectral Doppler flow evaluation were performed. FINDINGS: No evidence of deep vein thrombosis or superficial thrombophlebitis in the right upper extremity. CONCLUSIONS No evidence of thrombus of the right upper extremity veins. Right Picc Line in the subclavian vein Martir Garcia MD (Electronically Signed) Final Date: 10 April 2021 09:31 S
[2021-04-09] MEDS: linezolid premix 600 MG/300 ML PREMIX 300 MG IV ×2 (00:38→15:12)
[2021-04-09] MEDS: morphine 4 mg/mL SDV 1 mL 2 MG IVP (01:45)
--- NOTE | 2021-04-09 01:58 | PC.NURSE ---
i reported high pulse 112 to nurse
--- NOTE | 2021-04-09 04:37 | PC.NURSE ---
i reported high pulse 108 to nurse
[2021-04-09] MEDS: oxyCODONE-APAP 10-325 mg Tablet 1 TAB PO (05:10)
[2021-04-09] MEDS: piperacillin-tazobactam 3.375 GM in sodium chloride 0.9% (plus) 50 ML IV ×3 (05:11→20:31)
[2021-04-09 06:25] LABS: Alanine Aminotransferase 6 U/L (0-41); Albumin Level 3.1 g/dL (3.5-5.2); Alkaline Phosphatase 61 IU/L (40-130); Anion Gap 17.7 (5-19); Aspartate Amino Transferase 34 U/L (0-40); Blood Urea Nitrogen 55 mg/dL (6-20); Calcium 7.4 mg/dL (8.5-10.5); Carbon Dioxide 21 mmol/L (22-29); Chloride 93 mmol/L (98-107); Globulin 2.8 g/dL (1.3-4.6); Glomerular Filtration Rate 17.5 mL/min (90-130); Glucose 77 mg/dL (65-115); Magnesium 2.8 mg/dL (1.7-2.3); Osmolality Calculated 278 mOsm/kg (285-295); Phosphorus 5.8 mg/dL (2.5-4.5); Potassium 4.7 mmol/L (3.5-5.1); Sodium 127 mmol/L (136-145); Total Bilirubin 0.2 mg/dL (0.15-1.2); Total Protein 5.9 g/dL (6.6-8.7)
[2021-04-09 06:39] LABS: Glucose Point of Care 84 mg/dL (70-110)
[2021-04-09] MEDS: pantoprazole 40 mg SDV IVP ×2 (08:06→20:27)
[2021-04-09] MEDS: FUROsemide 10 mg/mL SDV 4mL 40 MG IVP (08:06)
[2021-04-09] MEDS: oxybutynin 5 mg Tablet PO ×3 (08:06→20:25)
[2021-04-09] MEDS: metoprolol tartrate 25 mg Tablet 12.5 MG PO ×2 (08:06→20:26)
[2021-04-09] MEDS: aspirin 81 mg EC Tablet PO (08:06)
[2021-04-09] MEDS: sodium bicarbonate 650 mg Tablet 1300 MG PO (08:06)
[2021-04-09] MEDS: b-complex-vitamin c Tablet 1 EACH PO (08:06)
--- NOTE | 2021-04-09 09:37 | P.PN_ITS ---
Subjective Subjective: Interval history: feels better s/p HD. poor appetite. less sob, dec edema . no n/v/f/c/belcher/d. Medications: Reviewed: Yes Medication Review Details: Current Medications Acetaminophen (Acetaminophen 325 Mg Tablet) 650 mg PO Q6H PRN PRN Reason: Mild/Mod Pain Or Temp >/= 101 Last Admin: 04/04/21 22:10 Dose: 650 mg Documented by: Aspirin (Aspirin 81 Mg Ec Tablet) 81 mg PO DAILY [facility] Last Admin: 04/09/21 08:06 Dose: 81 mg Documented by: Atorvastatin Calcium (Atorvastatin 40 Mg Tablet) 20 mg PO BEDTIME [facility] Last Admin: 04/08/21 22:29 Dose: 20 mg Documented by: Bisacodyl (Bisacodyl 5 Mg Tablet) 10 mg PO DAILY PRN; Protocol PRN Reason: Constipation (see protocol) Lidocaine HCl 1.667 ml/Diphenhydramine HCl 4.165 mg/Al Hydrox/Mg Hydrox/Simethicone 1.667 ml 0 ml MUCOUS MEM Q4H PRN PRN Reason: MOUTH PAIN Last Admin: 04/06/21 17:33 Dose: 7.5 ml Documented by: Dextrose (Dextrose 50% Syringe 50 Ml) 25 ml IVP ONCE PRN; Protocol PRN Reason: hypoglycemia protocol Dextrose (Dextrose 50% Syringe 50 Ml) 50 ml IVP PRN PRN; Protocol PRN Reason: hypoglycemia protocol Ergocalciferol (Ergocalciferol (Vitamin D2) 50,000 Unit Capsule) 50,000 unit PO Q7D [facility] Last Admin: 04/03/21 11:22 Dose: 50,000 unit Documented by: Furosemide (Furosemide 10 Mg/Ml Sdv 4ml) 40 mg IVP Q12H [facility] Last Admin: 04/09/21 08:06 Dose: 40 mg Documented by: Glucagon (Glucagon 1 Mg/Ml Inj 1 Ml) 1 mg IM ONCE PRN; Protocol PRN Reason: Adult Acute Hypoglycemia Prot Heparin Sodium (Porcine) (Heparin 5,000 Unit/Ml Inj 1 Ml) 5,000 unit SUBCUT Q8H [facility] Last Admin: 04/08/21 13:23 Dose: 5,000 unit Documented by: Hydralazine HCl (Hydralazine 20 Mg/Ml Inj 1 Ml) 10 mg IVP Q4H PRN PRN Reason: if sbp>180 Dextrose (D5w) 500 mls @ 100 mls/hr IV ONCE PRN; Protocol PRN Reason: Adult Acute Hypoglycemia Prot Linezolid (Zyvox Premix) 600 mg in 300 mls @ 300 mls/hr IV Q12H [facility]; Protocol Last Infusion: 04/09/21 02:09 Dose: Infused Documented by: Piperacillin Sod/Tazobactam (Sod 3.375 gm/ Sodium Chloride) 50 mls @ 12.5 mls/hr IV Q8H [facility]; Protocol Last Admin: 04/09/21 05:11 Dose: 12.5 mls/hr Documented by: Albumin Human (Albumin) 25 gm in 100 mls @ 60 mls/hr IV Q8H [facility] Last Admin: 04/09/21 09:35 Dose: 60 mls/hr Documented by: Albumin Human (Albumin) 12.5 gm in 50 mls @ 60 mls/hr IV PRN PRN PRN Reason: Hypotension and/or symptomatic Insulin Glargine (Insulin Glargine 100 Units/1 Ml) 15 unit SUBCUT BID@0900,2100 [facility] Last Admin: 04/09/21 08:06 Dose: Not Given Documented by: Insulin Human Lispro (Insulin Lispro 100 Unit/1 Ml) 0 unit SUBCUT TIDWM [facility]; Protocol Last Admin: 04/09/21 08:07 Dose: Not Given Documented by: Metoclopramide HCl (Metoclopramide 5 Mg/Ml Sdv 2 Ml) 10 mg IVP Q6H PRN PRN Reason: NAUSEA AND VOMITING Last Admin: 03/30/21 11:12 Dose: 10 mg Documented by: Metoprolol Tartrate (Metoprolol Tartrate 25 Mg Tablet) 12.5 mg PO BID@0900,2100 [facility] Last Admin: 04/09/21 08:06 Dose: 12.5 mg Documented by: Morphine Sulfate (Morphine 4 Mg/Ml Sdv 1 Ml) 2 mg IVP Q1H PRN PRN Reason: SEVERE PAIN Last Admin: 04/09/21 01:45 Dose: 2 mg Documented by: Multivitamins (Y-Kqkeanh-Twtikin C Tablet) 1 each PO DAILY [facility] Last Admin: 04/09/21 08:06 Dose: 1 each Documented by: Ondansetron HCl (Ondansetron 2 Mg/Ml Sdv 2 Ml) 4 mg IVP Q8H PRN PRN Reason: vomiting, or N/V if npo Last Admin: 04/06/21 14:39 Dose: 4 mg Documented by: Oxybutynin Chloride (Oxybutynin 5 Mg Tablet) 5 mg PO TID [facility] Last Admin: 04/09/21 08:06 Dose: 5 mg Documented by: Oxycodone/Acetaminophen (Oxycodone-Apap 10-325 Mg Tablet) 1 tab PO Q6H [facility] Last Admin: 04/09/21 05:10 Dose: 1 tab Documented by: Pantoprazole Sodium (Pantoprazole 40 Mg Sdv) 40 mg IVP Q12H [facility] Last Admin: 04/09/21 08:06 Dose: 40 mg Documented by: Sodium Bicarbonate (Sodium Bicarbonate 650 Mg Tablet) 1,300 mg PO TID [facility] Last Admin: 04/09/21 08:06 Dose: 1,300 mg Documented by: Vitals/I&O/Wt Last Vital Signs Temp 98.7 F 04/09/21 08:00 Pulse 89 04/09/21 08:00 Resp 17 04/09/21 08:00 BP 127/89 04/09/21 08:00 Pulse Ox 96 04/09/21 08:00 04/08/21 04/09/21 04/09/21 22:59 06:59 14:59 Intake Total 50 / 1220 750 / 1970 Output Total 600 / 600 160 / 760 Balance -550 / 620 590 / 1210 Weight last 48 hrs Weight 127.641 kg Weight 126.28 kg Physical Exam Narrative: EXAM NARRATIVE: comfortable, NARD, swollen vss heent- nc/at, eomi neck no jvp, rt ij dialysis catheter lung crackles b/l heart reg, no rub abd soft, nt, nd, + bs ext LLE BKA, 2+ RLE edema neuro a,a, o x 3 Urinary Catheter Management: Martinez: Cath Placed During This Visit: yes, but has since been removed by the nurse Reason for Continuing Indwelling Catheter: Acute Urinary Retention or Obstruction Urinary Catheter Date of Insertion: 04/06/21 Urinary Catheter Time of Insertion: 09:52 Date Urinary Catheter Removed: 04/04/21 Time Urinary Catheter Discontinued: 09:00 Data : 04/07/21 03:35 04/09/21 04:55 A&P Assessment and plan (1) Acute renal failure superimposed on stage 3b chronic kidney disease: 56 yr old male 1. ALESIA- likely from PHI, dm infection, Q AIN or infection related GN -some obstruction -imaging w/o hydronephrosis -low ur na -ua w/ blood, prot, ketone- - feels better after first hd yesterday -repeat hd now- -discussed risks and benefits of dialysis w/ pt. Pt consents to HD if needed 2. hyponatremia- monitor w/ HD -htn goes against adrenal insuf -normal tsh 3. met acidosis- monitor w/ dialysis 4. DM- gluc control per medicine 5. DM foot OM-s/p BKA 6. HTN - avoid ARB/ ARIANNE-I/ ALDACTONE w/ ALESIA -BP controlled- feb 7. hgb 8.6- dropped w/ BKA- ALANIS and repeat cbc ferritin 539, % sat 25- iv iron 8. replace vit d seen and examined w/ RN- telehealth visit -time spent 30 minutes Status: Acute Plan as above Attestations Medical Necessity Statement*: alesia, hyponatremia Time Spent in Patient Care: 16 - 35 minutes (>than 50% of time spent in counselling and/or direct pt care on unit) . 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
--- NOTE | 2021-04-09 09:41 | PC.CHAP ---
Pastoral Care Encounter/Spiritual Assessment Type of Contact [] Declined hospice manager visit [] Patient/Family/Request visit [] Outpatient visit [] Follow-up visit [] Physician referral [] Code/Alert [x] Routine visit [] Staff referral [] Actively dying [] Patient sleeping [] Family support [] [] Out of room [] Palliative care [] [] Receiving care in room [] Pre-surgical visit [] Trauma [] Long length of stay [] ICU visit [] Other: Relational/Emotional Strength [x] Patient feels connected with others/family/visitors/staff [] Distress [] Loneliness/isolation [] Abandonment Spirituality of Patient [x] Person of Jania [x] Attends Voodoo of their Jania [x] Believes in Prayer [] Reads Bible or Zoroastrian materials [] There are Spiritual issues to be addressed Network Technical Analyst Interventions [x] Prayer [x] Active listening [x] Non-anxious presence [x] Spiritual/emotional support [] Crisis/trauma care [] Spiritual counseling [] Bereavement support [] Provided bereavement packet [] Provided Bible/devotional materials [] Provided toy/stuffed animal, coloring book to patient or family member [] Provided Communion [] Anointing/[place] [] Salvation [x] Completed spiritual assessment [] Other: Impact on Illness or Injury [] Angry [] Fearful [] Anxious [] Often cries [] Exhaustion [] Unable to work [] Unable to attend baptism [] Unable to walk/stand [] Unable to read [] Unable to drive [] Unable to eat/drink [] Unable to sleep [] Unable to be with family [] Patient intubated [] Other: Summary Time spent with patient 10 min
--- NOTE | 2021-04-09 09:52 | PM.PN ---
Subjective Subjective: Interval history: Patient received dialysis yesterday and is on dialysis now. Denies significant back or leg pain Medications: Reviewed: Yes Vitals/I&O/Wt Last Vital Signs Temp 98.7 F 04/09/21 08:00 Pulse 89 04/09/21 08:00 Resp 17 04/09/21 08:00 BP 127/89 04/09/21 08:00 Pulse Ox 96 04/09/21 08:00 04/08/21 04/09/21 04/09/21 22:59 06:59 14:59 Intake Total 50 / 1970 750 / 1970 Output Total 600 / 760 160 / 760 Balance -550 / 1210 590 / 1210 Weight last 48 hrs Weight 281 lb 6.4 oz Weight 278 lb 6.4 oz Physical Exam Narrative: EXAM NARRATIVE: HEENT: Temporary dialysis catheter right IJ, dressings dry and intact Left BKA dressings dry and intact Urinary Catheter Management: Martinez: Cath Placed During This Visit: yes, but has since been removed by the nurse Reason for Continuing Indwelling Catheter: Acute Urinary Retention or Obstruction Urinary Catheter Date of Insertion: 04/06/21 Urinary Catheter Time of Insertion: 09:52 Date Urinary Catheter Removed: 04/04/21 Time Urinary Catheter Discontinued: 09:00 Data : 04/09/21 04:55 04/09/21 04:55 A&P Assessment and plan (1) S/P BKA (below knee amputation): Status post BKA for emphysematous osteomyelitis Daily dressing change with ABD, Kerlix, Sylvester wrap Knee immobilizer to prevent flexion contracture Continue PT Status: Acute (2) Acute renal failure superimposed on stage 3b chronic kidney disease: Status post placement of temporary dialysis catheter, catheter is functioning well and patient is currently receiving dialysis Status: Acute Attestations Medical Necessity Statement*: As per primary Coding Level of Care Code Acute 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
[2021-04-09 10:14] LABS: Basophils % 0.1 %; Eosinophils % 0.1 %; Hematocrit 21.9 % (42.0-52.0); Hemoglobin 6.9 g/dL (11.7-16.6); Lymphocytes # 0.7 10^3/uL (0.8-4.8); Lymphocytes % 7.7 %; Mean Corpuscular HGB Conc 31.5 g/dL (30.0-36.0); Mean Corpuscular Hemoglobin 26.8 pg (28.0-34.0); Mean Corpuscular Volume 85.2 fl (80-94); Monocytes # 0.3 10^3/uL (0.2-0.9); Monocytes % 3.6 %; Neutrophils # 7.99 10^3/uL (1.8-7.7); Neutrophils % 87.9 %; Nucleated Red Blood Cells % 0 %; Platelet Count 300 10^3/cmm (130-400); Red Blood Count 2.57 10^6/uL (4.1-5.3); Red Cell Distribution Width 14.2 % (12.1-15.1); White Blood Count 9.1 10^3/uL (4.0-10.0)
--- NOTE | 2021-04-09 11:12 | P.PN_ITS ---
Subjective Subjective: Interval history: 1.5 L removed yesterday with dialysis Patient still fluid overloaded Hypoglycemic events noted Decrease Lantus to 10 units Patient is feeling fatigued lethargic and demotivated He would like to avoid going to a penitentiary, is being try to get up get out of bed and sit in a chair minimal assist Diarrheal episodes since dialysis yesterday we will get C. difficile panel Right arm is swollen we will get Doppler study Vitals/I&O/Wt Last Vital Signs Temp 98.7 F 04/09/21 08:00 Pulse 89 04/09/21 08:00 Resp 17 04/09/21 08:00 BP 127/89 04/09/21 08:00 Pulse Ox 96 04/09/21 08:00 04/08/21 04/09/21 04/09/21 22:59 06:59 14:59 Intake Total 50 / 1220 750 / 1970 Output Total 600 / 600 160 / 760 Balance -550 / 620 590 / 1210 Weight last 48 hrs Weight 127.641 kg Weight 126.28 kg Physical Exam Narrative: EXAM NARRATIVE: Patient was resting comfortably in his bed Currently on 2 L nasal cannula Nonlabored breathing S1, S2 Abdomen soft, distended Visceral obesity Nonfocal neuro exam Left leg wrapped in tight dressing Dressing is not showing any signs of discharge Right leg is edematous Right arm more swollen as compared to left, right upper arm PICC line Urinary Catheter Management: Martinez: Cath Placed During This Visit: yes, but has since been removed by the nurse Reason for Continuing Indwelling Catheter: Acute Urinary Retention or Obstruction Urinary Catheter Date of Insertion: 04/06/21 Urinary Catheter Time of Insertion: 09:52 Date Urinary Catheter Removed: 04/04/21 Time Urinary Catheter Discontinued: 09:00 Data : 04/09/21 04:55 04/09/21 04:55 A&P Assessment and plan (1) S/P BKA (below knee amputation): Status: Acute (2) Foot osteomyelitis, left: Status: Acute (3) Diabetic peripheral neuropathy associated with type 2 diabetes mellitus: Status: Acute (4) Osteomyelitis: Status: Acute (5) Contrast dye induced nephropathy: Status: Acute (6) Hyperosmolar hyperglycemic state (HHS): Status: Acute (7) Essential hypertension: Status: Acute (8) Hypoglycemia: Status: Acute (9) Diarrhea: Status: Acute Plan 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 04/05 No postoperative complication Contrast-induced nephropathy, ATN, dialysis started 2/ Second dose of session today Still showing signs of fluid overload Hyperkalemia: Improved Creatinine trending down Patient is nonoliguric Appreciate nephro recommendation Dialysis catheter placed 2/ Normocytic anemia No active blood loss Check FOBT No active signs of bleeding hemodynamically stable Blood transfusion with dialysis Hyperglycemia with episodes of hypoglycemia With worsening of creatinine I will further reduce the dose of Lantus to 10 units and keep him on sliding scale low intensity Attestations Medical Necessity Statement*: Continue medical management Plan to send him home with home health services once stable Time Spent in Patient Care: 15 minutes Coding Level of Care Code 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
[2021-04-09 11:39] LABS: Glucose Point of Care 125 mg/dL (70-110)
[2021-04-09 17:41] LABS: Glucose Point of Care 171 mg/dL (70-110)
[2021-04-09] MEDS: atorvastatin 40 mg Tablet 20 MG PO (20:26)
[2021-04-09 20:34] LABS: Hematocrit 23.3 % (42.0-52.0); Hemoglobin 7.4 g/dL (11.7-16.6)
[2021-04-09] MEDS: acetaminophen 325 mg Tablet 650 MG PO (22:31)
[2021-04-09 22:52] LABS: Glucose Point of Care 217 mg/dL (70-110)
[2021-04-09] MEDS: insulin glargine 100 units/1 mL 10 UNIT SUBCUT (23:00)
[2021-04-09] MEDS: insulin lispro 100 unit/1 mL SUBCUT (23:01)
[2021-04-10] VITALS (19 sets, daily range): BP systolic 135–194; BP diastolic 70–103; PULSE 91–107; RESP 15–22; TEMP 31.4–37.4; O2SAT 91–96
[2021-04-10] MEDS: linezolid premix 600 MG/300 ML PREMIX 300 MG IV (00:49)
[2021-04-10] MEDS: piperacillin-tazobactam 3.375 GM in sodium chloride 0.9% (plus) 50 ML IV (04:34)
[2021-04-10 05:19] LABS: Basophils % 0.2 %; Eosinophils % 0.3 %; Hematocrit 22.2 % (42.0-52.0); Hemoglobin 6.9 g/dL (11.7-16.6); Lymphocytes % 9.3 %; Mean Corpuscular HGB Conc 31.1 g/dL (30.0-36.0); Mean Corpuscular Volume 86.7 fl (80-94); Mean Platelet Volume 8.4 fL (7.4-10.4); Monocytes # 0.6 10^3/uL (0.2-0.9); Monocytes % 5.4 %; Neutrophils # 9.15 10^3/uL (1.8-7.7); Neutrophils % 84.1 %; Nucleated Red Blood Cells % 0 %; Platelet Count 267 10^3/cmm (130-400); Red Blood Count 2.56 10^6/uL (4.1-5.3); Red Cell Distribution Width 14.3 % (12.1-15.1); White Blood Count 10.9 10^3/uL (4.0-10.0)
[2021-04-10 05:42] LABS: Alanine Aminotransferase 10 U/L (0-41); Albumin Level 3.3 g/dL (3.5-5.2); Alkaline Phosphatase 82 IU/L (40-130); Anion Gap 18.7 (5-19); Aspartate Amino Transferase 35 U/L (0-40); Blood Urea Nitrogen 39 mg/dL (6-20); Calcium 8.2 mg/dL (8.5-10.5); Carbon Dioxide 20 mmol/L (22-29); Chloride 94 mmol/L (98-107); Globulin 3.1 g/dL (1.3-4.6); Glomerular Filtration Rate 20.8 mL/min (90-130); Glucose 192 mg/dL (65-115); Magnesium 2.6 mg/dL (1.7-2.3); Osmolality Calculated 281 mOsm/kg (285-295); Phosphorus 5.2 mg/dL (2.5-4.5); Potassium 4.7 mmol/L (3.5-5.1); Sodium 128 mmol/L (136-145); Total Bilirubin 0.5 mg/dL (0.15-1.2); Total Protein 6.4 g/dL (6.6-8.7)
[2021-04-10 06:48] LABS: Glucose Point of Care 233 mg/dL (70-110)
[2021-04-10] MEDS: insulin glargine 100 units/1 mL 10 UNIT SUBCUT ×2 (08:23→20:51)
[2021-04-10] MEDS: insulin lispro 100 unit/1 mL SUBCUT ×4 (08:23→21:49)
[2021-04-10] MEDS: oxybutynin 5 mg Tablet PO ×3 (08:24→20:48)
[2021-04-10] MEDS: metoprolol tartrate 25 mg Tablet 12.5 MG PO ×2 (08:24→20:48)
[2021-04-10] MEDS: ergocalciferol (vitamin D2) 50,000 Unit Capsule 50000 UNIT PO (08:24)
[2021-04-10] MEDS: b-complex-vitamin c Tablet 1 EACH PO (08:24)
[2021-04-10] MEDS: pantoprazole 40 mg SDV IVP ×2 (08:25→20:48)
[2021-04-10 08:29] LABS: Hemoglobin 6.9 g/dL (11.7-16.6)
--- NOTE | 2021-04-10 09:23 | PM.PN ---
Subjective Subjective: Interval history: feels better. denies n/v/f/c/belcher/d/sob Medications: Reviewed: Yes Medication Review Details: Current Medications Acetaminophen (Acetaminophen 325 Mg Tablet) 650 mg PO Q6H PRN PRN Reason: Mild/Mod Pain Or Temp >/= 101 Last Admin: 04/09/21 22:31 Dose: 650 mg Documented by: Aspirin (Aspirin 81 Mg Ec Tablet) 81 mg PO DAILY [facility] Last Admin: 04/09/21 08:06 Dose: 81 mg Documented by: Atorvastatin Calcium (Atorvastatin 40 Mg Tablet) 20 mg PO BEDTIME [facility] Last Admin: 04/09/21 20:26 Dose: 20 mg Documented by: Bisacodyl (Bisacodyl 5 Mg Tablet) 10 mg PO DAILY PRN; Protocol PRN Reason: Constipation (see protocol) Lidocaine HCl 1.667 ml/Diphenhydramine HCl 4.165 mg/Al Hydrox/Mg Hydrox/Simethicone 1.667 ml 0 ml MUCOUS MEM Q4H PRN PRN Reason: MOUTH PAIN Last Admin: 04/06/21 17:33 Dose: 7.5 ml Documented by: Dextrose (Dextrose 50% Syringe 50 Ml) 25 ml IVP ONCE PRN; Protocol PRN Reason: hypoglycemia protocol Dextrose (Dextrose 50% Syringe 50 Ml) 50 ml IVP PRN PRN; Protocol PRN Reason: hypoglycemia protocol Ergocalciferol (Ergocalciferol (Vitamin D2) 50,000 Unit Capsule) 50,000 unit PO Q7D [facility] Last Admin: 04/10/21 08:24 Dose: 50,000 unit Documented by: Glucagon (Glucagon 1 Mg/Ml Inj 1 Ml) 1 mg IM ONCE PRN; Protocol PRN Reason: Adult Acute Hypoglycemia Prot Heparin Sodium (Porcine) (Heparin 5,000 Unit/Ml Inj 1 Ml) 5,000 unit SUBCUT Q8H [facility] Last Admin: 04/08/21 13:23 Dose: 5,000 unit Documented by: Hydralazine HCl (Hydralazine 20 Mg/Ml Inj 1 Ml) 10 mg IVP Q4H PRN PRN Reason: if sbp>180 Dextrose (D5w) 500 mls @ 100 mls/hr IV ONCE PRN; Protocol PRN Reason: Adult Acute Hypoglycemia Prot Linezolid (Zyvox Premix) 600 mg in 300 mls @ 300 mls/hr IV Q12H [facility]; Protocol Last Infusion: 04/10/21 01:49 Dose: Infused Documented by: Piperacillin Sod/Tazobactam (Sod 3.375 gm/ Sodium Chloride) 50 mls @ 12.5 mls/hr IV Q8H [facility]; Protocol Last Admin: 04/10/21 04:34 Dose: 12.5 mls/hr Documented by: Albumin Human (Albumin) 25 gm in 100 mls @ 60 mls/hr IV Q8H [facility] Last Admin: 04/10/21 08:24 Dose: 60 mls/hr Documented by: Albumin Human (Albumin) 12.5 gm in 50 mls @ 60 mls/hr IV PRN PRN PRN Reason: Hypotension and/or symptomatic Insulin Glargine (Insulin Glargine 100 Units/1 Ml) 10 unit SUBCUT BID@0900,2100 [facility] Last Admin: 04/10/21 08:23 Dose: 10 unit Documented by: Insulin Human Lispro (Insulin Lispro 100 Unit/1 Ml) 0 unit SUBCUT WM&BEDTIME [facility]; Protocol Last Admin: 04/10/21 08:23 Dose: 6 unit Documented by: Metoclopramide HCl (Metoclopramide 5 Mg/Ml Sdv 2 Ml) 10 mg IVP Q6H PRN PRN Reason: NAUSEA AND VOMITING Last Admin: 03/30/21 11:12 Dose: 10 mg Documented by: Metoprolol Tartrate (Metoprolol Tartrate 25 Mg Tablet) 12.5 mg PO BID@0900,2100 [facility] Last Admin: 04/10/21 08:24 Dose: 12.5 mg Documented by: Multivitamins (P-Opujmlv-Pjyidjd C Tablet) 1 each PO DAILY [facility] Last Admin: 04/10/21 08:24 Dose: 1 each Documented by: Ondansetron HCl (Ondansetron 2 Mg/Ml Sdv 2 Ml) 4 mg IVP Q8H PRN PRN Reason: vomiting, or N/V if npo Last Admin: 04/06/21 14:39 Dose: 4 mg Documented by: Oxybutynin Chloride (Oxybutynin 5 Mg Tablet) 5 mg PO TID [facility] Last Admin: 04/10/21 08:24 Dose: 5 mg Documented by: Pantoprazole Sodium (Pantoprazole 40 Mg Sdv) 40 mg IVP Q12H [facility] Last Admin: 04/10/21 08:25 Dose: 40 mg Documented by: Vitals/I&O/Wt Last Vital Signs Temp 98.6 F 04/10/21 08:16 Pulse 94 04/10/21 08:16 Resp 16 04/10/21 08:16 BP 135/70 04/10/21 08:16 Pulse Ox 93 04/10/21 08:00 04/09/21 04/10/21 04/10/21 22:59 06:59 14:59 Intake Total 1280 / 1830 450 / 2280 300 / 300 Output Total 700 / 700 2300 / 2300 Balance 1280 / 1830 -250 / 1580 -2000 / -1999 Weight last 48 hrs Weight 125.6 kg Weight 127.641 kg Physical Exam Narrative: EXAM NARRATIVE: comfortable, NARD, swollen vss heent- nc/at, eomi neck no jvp, rt ij dialysis catheter lung dull bases b/l heart reg, no rub abd soft, nt, nd, + bs ext LLE BKA, 2+ RLE edema neuro a,a, o x 3 Urinary Catheter Management: Martinez: Cath Placed During This Visit: yes, but has since been removed by the nurse Reason for Continuing Indwelling Catheter: Required Immobilization for Trauma or Surgery or Anesthesia Urinary Catheter Date of Insertion: 04/06/21 Urinary Catheter Time of Insertion: 09:52 Date Urinary Catheter Removed: 04/04/21 Time Urinary Catheter Discontinued: 09:00 Data : 04/10/21 07:45 04/10/21 04:59 A&P Assessment and plan (1) Acute renal failure superimposed on stage 3b chronic kidney disease: 56 yr old male 1. ALESIA- likely from PHI, dm infection, Q AIN or infection related GN -some obstruction -imaging w/o hydronephrosis -low ur na -ua w/ blood, prot, ketone- - feels better after first hd x 2 -lasix and assess for HD in am -discussed risks and benefits of dialysis w/ pt. Pt consented to HD 2. hyponatremia- monitor w/ HD -htn goes against adrenal insuf -normal tsh 3. met acidosis- monitor w/ dialysis 4. DM- gluc control per medicine 5. DM foot OM-s/p BKA 6. HTN - avoid ARB/ ARIANNE-I/ ALDACTONE w/ ALESIA -BP controlled- dec meds 7. hgb 6.9- dropped w/ BKA- ALANIS and prbc 1 u today -can tx more blood w/ HD if needed in am ferritin 539, % sat 25- iv iron if not getting prbc -assess for source of anemia 8. replace vit d 9. uric acid 12.9 - allopurinol seen and examined w/ RN- telehealth visit -time spent 30 minutes Status: Acute Plan as above Attestations Medical Necessity Statement*: infection s/p Left BKA, ALESIA, anemia, hyponatremia Time Spent in Patient Care: 16 - 35 minutes (>than 50% of time spent in counselling and/or direct pt care on unit). 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
--- NOTE | 2021-04-10 10:47 | P.PN_ITS ---
Subjective Subjective: Interval history: Patient is doing well, received dialysis yesterday, denies significant leg or neck pain Medications: Reviewed: Yes Vitals/I&O/Wt Last Vital Signs Temp 98.6 F 04/10/21 08:16 Pulse 94 04/10/21 08:16 Resp 16 04/10/21 08:16 BP 135/70 04/10/21 08:16 Pulse Ox 93 04/10/21 08:00 04/09/21 04/10/21 04/10/21 22:59 06:59 14:59 Intake Total 1280 / 2280 450 / 2280 300 / 300 Output Total 700 / 700 2300 / 2300 Balance 1280 / 1580 -250 / 1580 -2000 / -1999 Weight last 48 hrs Weight 276 lb 14.409 oz Weight 281 lb 6.4 oz Physical Exam Narrative: EXAM NARRATIVE: Left BKA stump: Minimal edema, no cellulitis or hematoma Urinary Catheter Management: Martinez: Cath Placed During This Visit: yes, but has since been removed by the nurse Reason for Continuing Indwelling Catheter: Required Immobilization for Trauma or Surgery or Anesthesia Urinary Catheter Date of Insertion: 04/06/21 Urinary Catheter Time of Insertion: 09:52 Date Urinary Catheter Removed: 04/04/21 Time Urinary Catheter Discontinued: 09:00 Data : 04/10/21 07:45 04/10/21 04:59 A&P Assessment and plan (1) S/P BKA (below knee amputation): Status post BKA for emphysematous osteomyelitis Daily dressing change with ABD, Kerlix, Sylvester wrap Knee immobilizer to prevent flexion contracture Continue PT Status: Acute (2) Acute renal failure superimposed on stage 3b chronic kidney disease: Status post placement of temporary dialysis catheter, catheter is functioning well Status: Acute Attestations Medical Necessity Statement*: As per primary Coding Level of Care Code 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
[2021-04-10] MEDS: FUROsemide 10 mg/mL SDV 10mL 60 MG IVP ×2 (11:01→15:53)
--- NOTE | 2021-04-10 11:46 | P.PN_ITS ---
Subjective Subjective: Interval history: Significant drop in hemoglobin despite giving 1 unit yesterday, hemoglobin repeat this morning 6.9, will give him 1 unit PRBC, occult blood test pending mary nelson has not noticed any hemoptysis hematemesis, wound was examined as well there are no signs of hematoma wound looks unremarkable Vitals/I&O/Wt Last Vital Signs Temp 98.6 F 04/10/21 08:16 Pulse 94 04/10/21 08:16 Resp 16 04/10/21 08:16 BP 135/70 04/10/21 08:16 Pulse Ox 93 04/10/21 08:00 04/09/21 04/10/21 04/10/21 22:59 06:59 14:59 Intake Total 1280 / 1830 450 / 2280 450 / 450 Output Total 700 / 700 2300 / 2300 Balance 1280 / 1830 -250 / 1580 -1850 / -1850 Weight last 48 hrs Weight 125.6 kg Weight 127.641 kg Physical Exam 2 Narrative: EXAM NARRATIVE: Patient still fluid overloaded This morning he was on room air Eating breakfast Examined his foot morning, minnie intact, good signs of granulation tissue no active drainage or hematoma No signs of infection S1, S2 Extremities are swollen Nonfocal neuro exam Abdomen distended bowel sound present Urinary Catheter Management: Martinez: Cath Placed During This Visit: yes, but has since been removed by the nurse Reason for Continuing Indwelling Catheter: Required Immobilization for Trauma or Surgery or Anesthesia Urinary Catheter Date of Insertion: 04/06/21 Urinary Catheter Time of Insertion: 09:52 Date Urinary Catheter Removed: 04/04/21 Time Urinary Catheter Discontinued: 09:00 Data : 04/10/21 07:45 04/10/21 04:59 A&P Assessment and plan (1) Anemia: Status: Acute (2) Diarrhea: Status: Acute (3) Hypoglycemia: Status: Acute (4) S/P BKA (below knee amputation): Status: Acute (5) Foot osteomyelitis, left: Status: Acute (6) Diabetic peripheral neuropathy associated with type 2 diabetes mellitus: Status: Acute (7) Contrast dye induced nephropathy: Status: Acute (8) UTI (urinary tract infection): Status: Acute (9) Peripheral arterial disease: Status: Acute Plan Emphysematous osteomyelitis status post left BKA 04/05 No postoperative complications Wound looks clean, good signs of granulation tissue, no active signs of inflammation No signs of hematoma Contrast-induced nephropathy, currently on dialysis Appreciate nephro recommendations Next session tomorrow He will get Lasix today Still clinically fluid overloaded Hyponatremia related to hypervolemia Anticipate improvement with euvolemic state after dialysis Anemia, no active source identified yet, patient stated dark-colored stool, FOBT pending, hemodynamically stable, 1 unit was given on 04/09, second unit will be given on 04/10, iron studies No active signs of hematoma Type 2 diabetes patient had couple events of hypoglycemia, insulin dose was reduced because of worsening creatinine, Adjust insulin with increasing dose Consistent carb renal dialysis diet Full code DVT prophylaxis on hold PT to work with patient He might be able to go home with home health services next week Attestations Medical Necessity Statement*: Continue medical management Time Spent in Patient Care: 15 Coding Level of Care Code Acute Blending Tank Helper for Chg Fwd Diagnoses Anemia D64.9 Diarrhea R19.7 Hypoglycemia E16.2 S/P BKA (below knee amputation) Z89.519 Foot osteomyelitis, left M86.9 Diabetic peripheral neuropathy associated with type 2 diabetes mellitus E11.42 Contrast dye induced nephropathy N14.1; T50.8X5A UTI (urinary tract infection) N39.0 Peripheral arterial disease I73.9
[2021-04-10 12:00] LABS: Glucose Point of Care 232 mg/dL (70-110)
[2021-04-10 12:51] LABS: Iron 26 ug/dL (59-158); Percent Saturation 30.5 % (20-50); Total Iron Binding Capacity 85 mcg/dl; Unsaturated Iron Binding 59 ug/dL (112-347)
[2021-04-10 13:06] LABS: Vitamin B12 787 pg/mL (232-1245)
[2021-04-10] MEDS: doxycycline 100 mg Tablet PO (17:19)
[2021-04-10] MEDS: amoxicillin-clav 875-125 mg Tablet 1 TAB PO (17:19)
[2021-04-10 17:40] LABS: Glucose Point of Care 274 mg/dL (70-110)
[2021-04-10] MEDS: hyDRALAzine 20 mg/mL INJ 1 mL 10 MG IVP (18:12)
--- NOTE | 2021-04-10 20:42 | XR_ITS ---
WS: [id number] XR chest 1V portable 01004 REASON FOR EXAM: SOB FINDINGS: Right internal jugular dialysis catheter and right arm PICC line remain in proper position in the sup erior vena cava. No significant cardiomegaly. Hazy ill-defined lung opacities in the lower lung alves with a more consolidated area adjacent to th e right ventricle. In retrospect the density adjacent to the right ventricle is present on the previo us examination of 04/08/2021. There was a more subtle abnormality in this area on the previous examinat ion of 04/07/2021. The hazy densities in both lower lung alves are new abnormalities compared to the previous study. XR/XR chest 1V portable 56170 IMPRESSION: There is an increasing area of lung opacity adjacent to the right lateral ventr icle. New hazy lung opacities in both lower lung alves. This may be pulmonary edema. Pneumonitis not readily excluded.
[2021-04-10] MEDS: atorvastatin 40 mg Tablet 20 MG PO (20:48)
[2021-04-10 21:27] LABS: Glucose Point of Care 214 mg/dL (70-110)
[2021-04-10] MEDS: bumetanide 0.25 mg/mL SDV 4 mL 2 MG IVP (21:46)
[2021-04-10] MEDS: guaiFENesin-codeine UDC 10 mL 5 ML PO (21:52)
[2021-04-10] MEDS: ipratropium-albuterol 3 mL Neb INHALATION (22:04)
[2021-04-10 23:53] LABS: Hematocrit 27.5 % (42.0-52.0)
[2021-04-11] VITALS (16 sets, daily range): BP systolic 156–215; BP diastolic 71–112; PULSE 89–105; RESP 16–20; TEMP 36.6–36.8; O2SAT 93–98
[2021-04-11] MEDS: hyDRALAzine 20 mg/mL INJ 1 mL 5 MG IVP (00:23)
[2021-04-11] MEDS: cloNIDine 0.1 mg Tablet PO (03:43)
[2021-04-11] MEDS: ipratropium-albuterol 3 mL Neb INHALATION (04:43)
[2021-04-11 06:20] LABS: Glucose Point of Care 298 mg/dL (70-110)
[2021-04-11 06:36] LABS: Basophils % 0.1 %; Hematocrit 29.1 % (42.0-52.0); Hemoglobin 9.1 g/dL (11.7-16.6); Lymphocytes # 0.2 10^3/uL (0.8-4.8); Lymphocytes % 1.6 %; Mean Corpuscular HGB Conc 31.3 g/dL (30.0-36.0); Mean Corpuscular Hemoglobin 27.7 pg (28.0-34.0); Mean Corpuscular Volume 88.4 fl (80-94); Mean Platelet Volume 8.3 fL (7.4-10.4); Monocytes # 0.1 10^3/uL (0.2-0.9); Monocytes % 0.6 %; Neutrophils # 12.48 10^3/uL (1.8-7.7); Neutrophils % 96.8 %; Nucleated Red Blood Cells % 0 %; Platelet Count 276 10^3/cmm (130-400); Red Blood Count 3.29 10^6/uL (4.1-5.3); Red Cell Distribution Width 14.4 % (12.1-15.1); White Blood Count 12.9 10^3/uL (4.0-10.0)
[2021-04-11 06:53] LABS: Lactate (Lactic Acid level) 0.7 mmol/L (0.5-2.2)
[2021-04-11 06:56] LABS: C Reactive Protein 160.5 mg/L (0.0-4.9)
[2021-04-11 06:57] LABS: Alanine Aminotransferase 8 U/L (0-41); Albumin Level 3.6 g/dL (3.5-5.2); Alkaline Phosphatase 69 IU/L (40-130); Blood Urea Nitrogen 48 mg/dL (6-20); Calcium 7.3 mg/dL (8.5-10.5); Carbon Dioxide 20 mmol/L (22-29); Chloride 92 mmol/L (98-107); Globulin 2.2 g/dL (1.3-4.6); Glucose 233 mg/dL (65-115); Magnesium 2.5 mg/dL (1.7-2.3); Osmolality Calculated 282 mOsm/kg (285-295); Phosphorus 5.7 mg/dL (2.5-4.5); Sodium 126 mmol/L (136-145); Total Bilirubin 0.5 mg/dL (0.15-1.2); Total Protein 5.8 g/dL (6.6-8.7)
[2021-04-11 07:06] LABS: Anion Gap 19.3 (5-19); Aspartate Amino Transferase 23 U/L (0-40); Potassium 5.3 mmol/L (3.5-5.1)
[2021-04-11] MEDS: insulin lispro 100 unit/1 mL SUBCUT ×3 (08:51→22:52)
[2021-04-11] MEDS: sodium chloride 0.9% (100 ml) 100 ML 15 ML ×2 (08:51)
[2021-04-11] MEDS: insulin glargine 100 units/1 mL 10 UNIT SUBCUT ×2 (08:52→20:53)
--- NOTE | 2021-04-11 09:50 | P.PN_ITS ---
Subjective Subjective: Interval history: Mr. Kruger is seen and examined on dialysis today. Dialysis was expedited this morning as he felt very short of breath. He is very fluid overloaded at this time. Blood pressure reviewed, remains elevated this morning. Minimal urine output. No pain over his amputation. Medications: Reviewed: Yes Medication Review Details: Current Medications Acetaminophen (Acetaminophen 325 Mg Tablet) 650 mg PO Q6H PRN PRN Reason: Mild/Mod Pain Or Temp >/= 101 Last Admin: 04/09/21 22:31 Dose: 650 mg Documented by: Aspirin (Aspirin 81 Mg Ec Tablet) 81 mg PO DAILY [facility] Last Admin: 04/09/21 08:06 Dose: 81 mg Documented by: Atorvastatin Calcium (Atorvastatin 40 Mg Tablet) 20 mg PO BEDTIME [facility] Last Admin: 04/09/21 20:26 Dose: 20 mg Documented by: Bisacodyl (Bisacodyl 5 Mg Tablet) 10 mg PO DAILY PRN; Protocol PRN Reason: Constipation (see protocol) Lidocaine HCl 1.667 ml/Diphenhydramine HCl 4.165 mg/Al Hydrox/Mg Hydrox/Simethicone 1.667 ml 0 ml MUCOUS MEM Q4H PRN PRN Reason: MOUTH PAIN Last Admin: 04/06/21 17:33 Dose: 7.5 ml Documented by: Dextrose (Dextrose 50% Syringe 50 Ml) 25 ml IVP ONCE PRN; Protocol PRN Reason: hypoglycemia protocol Dextrose (Dextrose 50% Syringe 50 Ml) 50 ml IVP PRN PRN; Protocol PRN Reason: hypoglycemia protocol Ergocalciferol (Ergocalciferol (Vitamin D2) 50,000 Unit Capsule) 50,000 unit PO Q7D [facility] Last Admin: 04/10/21 08:24 Dose: 50,000 unit Documented by: Glucagon (Glucagon 1 Mg/Ml Inj 1 Ml) 1 mg IM ONCE PRN; Protocol PRN Reason: Adult Acute Hypoglycemia Prot Heparin Sodium (Porcine) (Heparin 5,000 Unit/Ml Inj 1 Ml) 5,000 unit SUBCUT Q8H [facility] Last Admin: 04/08/21 13:23 Dose: 5,000 unit Documented by: Hydralazine HCl (Hydralazine 20 Mg/Ml Inj 1 Ml) 10 mg IVP Q4H PRN PRN Reason: if sbp>180 Dextrose (D5w) 500 mls @ 100 mls/hr IV ONCE PRN; Protocol PRN Reason: Adult Acute Hypoglycemia Prot Linezolid (Zyvox Premix) 600 mg in 300 mls @ 300 mls/hr IV Q12H [facility]; Protocol Last Infusion: 04/10/21 01:49 Dose: Infused Documented by: Piperacillin Sod/Tazobactam (Sod 3.375 gm/ Sodium Chloride) 50 mls @ 12.5 mls/hr IV Q8H [facility]; Protocol Last Admin: 04/10/21 04:34 Dose: 12.5 mls/hr Documented by: Albumin Human (Albumin) 25 gm in 100 mls @ 60 mls/hr IV Q8H [facility] Last Admin: 04/10/21 08:24 Dose: 60 mls/hr Documented by: Albumin Human (Albumin) 12.5 gm in 50 mls @ 60 mls/hr IV PRN PRN PRN Reason: Hypotension and/or symptomatic Insulin Glargine (Insulin Glargine 100 Units/1 Ml) 10 unit SUBCUT BID@0900,2100 [facility] Last Admin: 04/10/21 08:23 Dose: 10 unit Documented by: Insulin Human Lispro (Insulin Lispro 100 Unit/1 Ml) 0 unit SUBCUT WM&BEDTIME [facility]; Protocol Last Admin: 04/10/21 08:23 Dose: 6 unit Documented by: Metoclopramide HCl (Metoclopramide 5 Mg/Ml Sdv 2 Ml) 10 mg IVP Q6H PRN PRN Reason: NAUSEA AND VOMITING Last Admin: 03/30/21 11:12 Dose: 10 mg Documented by: Metoprolol Tartrate (Metoprolol Tartrate 25 Mg Tablet) 12.5 mg PO BID@0900,2100 [facility] Last Admin: 04/10/21 08:24 Dose: 12.5 mg Documented by: Multivitamins (A-Vcuatcj-Wvkouzv C Tablet) 1 each PO DAILY [facility] Last Admin: 04/10/21 08:24 Dose: 1 each Documented by: Ondansetron HCl (Ondansetron 2 Mg/Ml Sdv 2 Ml) 4 mg IVP Q8H PRN PRN Reason: vomiting, or N/V if npo Last Admin: 04/06/21 14:39 Dose: 4 mg Documented by: Oxybutynin Chloride (Oxybutynin 5 Mg Tablet) 5 mg PO TID [facility] Last Admin: 04/10/21 08:24 Dose: 5 mg Documented by: Pantoprazole Sodium (Pantoprazole 40 Mg Sdv) 40 mg IVP Q12H [facility] Last Admin: 04/10/21 08:25 Dose: 40 mg Documented by: Vitals/I&O/Wt Last Vital Signs Temp 97.9 F 04/11/21 00:00 Pulse 92 04/11/21 08:22 Resp 18 04/11/21 08:22 BP 178/87 04/11/21 03:43 Pulse Ox 98 04/11/21 08:22 04/10/21 04/11/21 04/11/21 22:59 06:59 14:59 Intake Total 1040 / 1840 220 / 2060 Output Total 200 / 2500 300 / 2800 Balance 840 / -660 -80 / -740 Weight last 48 hrs Weight 125.6 kg Physical Exam Narrative: EXAM NARRATIVE: Constitutional: Awake, comfortable HEENT: Wet mucosa, no jvp, non icteric Lungs: Bilaterally clear without discernible wheeze or rales in all lung zones CVS: S1 S2, no murmurs Abdo: Soft, BS ok Ext 4: Minimal edema, peripheral perfusion with no cyanosis Neurological: Grossly non-focal Urinary Catheter Management: Martinez: Cath Placed During This Visit: yes, but has since been removed by the nurse Reason for Continuing Indwelling Catheter: Acute Urinary Retention or Obstruction Urinary Catheter Date of Insertion: 04/06/21 Urinary Catheter Time of Insertion: 09:52 Date Urinary Catheter Removed: 04/04/21 Time Urinary Catheter Discontinued: 09:00 Data : 04/11/21 06:25 04/11/21 06:25 Micro: Microbiology 04/11/21 09:00 Occult Blood (FIT) - Final Stool Routine Collection A&P Assessment and plan (1) Acute renal failure superimposed on stage 3b chronic kidney disease: 1. Acute kidney injury Differential diagnosis includes contrast nephropathy, infection mediated or myelopathy, acute interstitial nephritis. Poor renal function, still no evidence of recovery at this time. Dialysis today and tomorrow given fluid overload. He will need permacath placement early next week, case management to organize outpatient dialysis for him. This appears to be a protracted recovery which can be monitored for and managed as an outpatient. Avoid usual nephrotoxic agents Dose medication for GFR less than 15 2. Chemistry Relatively minor noncritical aberration, should correct with hemodialysis. Continue renal diet, limit oral intake of fluid. 3. 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 Hemodynamics Blood pressure remains elevated, 3 L of ultrafiltration today and tomorrow, as needed antihypertensives in the meantime. Kristofer Noble MD Nephrology [phone] Patient seen and examined via telemedicine, with the assistance of the bedside RN > 25 min spent in evaluation and mgmt of patient Status: Acute Attestations Medical Necessity Statement*: eval for renal failure Coding Level of Care Code Acute Machine Joint Cutter for Chg Fwd Diagnoses Acute renal failure superimposed on stage 3b chronic kidney disease N17.9; N18.32
[2021-04-11] MEDS: heparin, porcine 1,000 unit/mL INJ 10 mL HE (10:31)
--- NOTE | 2021-04-11 11:07 | PM.PN ---
Subjective Subjective: Interval history: 2 units PRBC total 3 units hemoglobin 9.1 Stool sample sent today No signs of hematochezia or hematemesis He was getting dialysis morning After need of blood transfusion history getting short of breath, overnight chest x-ray does show fluid overload consistent with from edema patient is feeling better, plan is to wean him off oxygen, continue dialysis Patient is stating that he had a bowel movement and since then he has been feeling slightly better Vitals/I&O/Wt Last Vital Signs Temp 97.8 F 04/11/21 10:00 Pulse 92 04/11/21 10:00 Resp 18 04/11/21 10:00 BP 199/89 04/11/21 10:00 Pulse Ox 97 04/11/21 10:00 04/10/21 04/11/21 04/11/21 22:59 06:59 14:59 Intake Total 1040 / 1840 220 / 2060 Output Total 200 / 2500 300 / 2800 Balance 840 / -660 -80 / -740 Weight last 48 hrs Weight 125.6 kg Physical Exam Narrative: EXAM NARRATIVE: Fluid overloaded No active shortness of breath 3 L nasal cannula Abdomen soft nontender less firm as compared to yesterday EOMI, PERRLA Nonfocal neuro exam Upper extremities still edematous Right leg swelling Appropriate mood and affect No audible stridor or wheezing Urinary Catheter Management: Martinez: Cath Placed During This Visit: yes, but has since been removed by the nurse Reason for Continuing Indwelling Catheter: Acute Urinary Retention or Obstruction Urinary Catheter Date of Insertion: 04/06/21 Urinary Catheter Time of Insertion: 09:52 Date Urinary Catheter Removed: 04/04/21 Time Urinary Catheter Discontinued: 09:00 Data : 04/11/21 06:25 04/11/21 06:25 Micro: Microbiology 04/11/21 09:00 Occult Blood (FIT) - Final Stool Routine Collection A&P Assessment and plan (1) Anemia: Status: Acute (2) Diarrhea: Status: Acute (3) Hypoglycemia: Status: Acute (4) Foot osteomyelitis, left: Status: Acute (5) S/P BKA (below knee amputation): Status: Acute (6) Osteomyelitis: Status: Acute (7) Diabetic peripheral neuropathy associated with type 2 diabetes mellitus: Status: Acute (8) Diabetes: Status: Acute (9) Essential hypertension: Status: Acute (10) Contrast dye induced nephropathy: Status: Acute Plan Anemia Normocytic anemia No active signs of GI blood loss Most likely related to chronic kidney disease Low iron, ferritin high related to active inflammatory process Status post 2 unit PRBC Occult blood test sample sent No active signs of ischemic bowel Hyperglycemia related to type 2 diabetes hemoglobin A1c 13 Escalate his insulin, insulin was decreased secondary to worsening creatinine persistent hyperglycemia noted Emphysematous osteomyelitis status post amputation 04/05, antibiotics deescalated to p.o. regimen yesterday /3 Contrast-induced nephropathy, patient will need tunneled dialysis catheter as per nephro recommendations, will update general surgery Hypervolemic hyponatremia Hyperkalemia: Patient was in dialysis this morning Full code Renal dialysis diet Consistent carb diet DVT prophylaxis on hold secondary to anemia Attestations Medical Necessity Statement*: Continue medical management Time Spent in Patient Care: 20min Coding Level of Care Code Acute Building Appraiser for Chg Fwd Diagnoses Anemia D64.9 Diarrhea R19.7 Hypoglycemia E16.2 Foot osteomyelitis, left M86.9 S/P BKA (below knee amputation) Z89.519 Osteomyelitis M86.9 Diabetic peripheral neuropathy associated with type 2 diabetes mellitus E11.42 Diabetes E11.9 Essential hypertension I10 Contrast dye induced nephropathy N14.1; T50.8X5A
[2021-04-11] MEDS: allopurinol 100 mg Tablet PO (13:47)
[2021-04-11] MEDS: b-complex-vitamin c Tablet 1 EACH PO (13:47)
[2021-04-11] MEDS: amoxicillin-clav 875-125 mg Tablet 1 TAB PO ×2 (13:47→17:07)
[2021-04-11] MEDS: doxycycline 100 mg Tablet PO ×2 (13:47→17:07)
[2021-04-11] MEDS: oxybutynin 5 mg Tablet PO ×3 (13:47→20:50)
[2021-04-11] MEDS: metoprolol tartrate 25 mg Tablet 12.5 MG PO ×2 (13:48→20:51)
[2021-04-11] MEDS: pantoprazole 40 mg SDV IVP ×2 (13:48→20:51)
[2021-04-11] MEDS: atorvastatin 40 mg Tablet 20 MG PO (20:50)
[2021-04-11 21:01] LABS: Glucose Point of Care 157 mg/dL (70-110)
[2021-04-11 21:01] LABS: Glucose Point of Care 312 mg/dL (70-110)
[2021-04-11 21:40] LABS: Glucose Point of Care 462 mg/dL (70-110)
[2021-04-11 21:40] LABS: Glucose Point of Care 415 mg/dL (70-110)
[2021-04-11 22:24] LABS: Glucose Point of Care 448 mg/dL (70-110)
[2021-04-12] VITALS (10 sets, daily range): BP systolic 162–177; BP diastolic 79–91; PULSE 88–98; RESP 16–17; TEMP 36.4–37.3; O2SAT 92–97
[2021-04-12 06:05] LABS: Hematocrit 28.3 % (42.0-52.0); Hemoglobin 8.8 g/dL (11.7-16.6); Lymphocytes # 0.2 10^3/uL (0.8-4.8); Lymphocytes % 4.7 %; Mean Corpuscular HGB Conc 31.1 g/dL (30.0-36.0); Mean Corpuscular Hemoglobin 26.9 pg (28.0-34.0); Mean Corpuscular Volume 86.5 fl (80-94); Mean Platelet Volume 8.6 fL (7.4-10.4); Monocytes # 0.1 10^3/uL (0.2-0.9); Monocytes % 2.7 %; Neutrophils # 4.07 10^3/uL (1.8-7.7); Neutrophils % 91.9 %; Nucleated Red Blood Cells % 0 %; Platelet Count 276 10^3/cmm (130-400); Red Blood Count 3.27 10^6/uL (4.1-5.3); Red Cell Distribution Width 14.5 % (12.1-15.1); White Blood Count 4.4 10^3/uL (4.0-10.0)
[2021-04-12 06:27] LABS: Magnesium 2.4 mg/dL (1.7-2.3); Phosphorus 4.6 mg/dL (2.5-4.5)
[2021-04-12 06:50] LABS: Glucose Point of Care 407 mg/dL (70-110)
[2021-04-12] MEDS: insulin lispro 100 unit/1 mL SUBCUT ×4 (07:46→21:38)
[2021-04-12] MEDS: pantoprazole 40 mg SDV IVP ×2 (08:30→21:22)
[2021-04-12] MEDS: insulin glargine 100 units/1 mL 10 UNIT SUBCUT ×2 (08:30→21:37)
[2021-04-12] MEDS: doxycycline 100 mg Tablet PO ×2 (08:31→17:33)
[2021-04-12] MEDS: oxybutynin 5 mg Tablet PO ×3 (08:31→21:37)
[2021-04-12] MEDS: allopurinol 100 mg Tablet PO (08:31)
[2021-04-12] MEDS: metoprolol tartrate 25 mg Tablet 12.5 MG PO ×2 (08:31→21:37)
[2021-04-12] MEDS: b-complex-vitamin c Tablet 1 EACH PO (08:31)
[2021-04-12] MEDS: amoxicillin-clav 875-125 mg Tablet 1 TAB PO ×2 (08:31→17:33)
[2021-04-12 10:59] LABS: Blood Urea Nitrogen 47 mg/dL (6-20); Carbon Dioxide 23 mmol/L (22-29); Chloride 92 mmol/L (98-107); Glomerular Filtration Rate 18.1 mL/min (90-130); Glucose 393 mg/dL (65-115); Sodium 129 mmol/L (136-145)
--- NOTE | 2021-04-12 10:59 | P.PN_ITS ---
Subjective Subjective: Interval history: Mr. Kruger feels significantly better today after his dialysis yesterday. Much improved extremity edema, no shortness of breath at rest today either. Urine output did start over yesterday, 225 mL over the last 24 hours and 100 mL so far this morning. No uremic symptoms. His lower extremity feels comfortable. Medications: Reviewed: Yes Medication Review Details: Current Medications Acetaminophen (Acetaminophen 325 Mg Tablet) 650 mg PO Q6H PRN PRN Reason: Mild/Mod Pain Or Temp >/= 101 Last Admin: 04/09/21 22:31 Dose: 650 mg Documented by: Aspirin (Aspirin 81 Mg Ec Tablet) 81 mg PO DAILY [facility] Last Admin: 04/09/21 08:06 Dose: 81 mg Documented by: Atorvastatin Calcium (Atorvastatin 40 Mg Tablet) 20 mg PO BEDTIME [facility] Last Admin: 04/09/21 20:26 Dose: 20 mg Documented by: Bisacodyl (Bisacodyl 5 Mg Tablet) 10 mg PO DAILY PRN; Protocol PRN Reason: Constipation (see protocol) Lidocaine HCl 1.667 ml/Diphenhydramine HCl 4.165 mg/Al Hydrox/Mg Hydrox/Simethicone 1.667 ml 0 ml MUCOUS MEM Q4H PRN PRN Reason: MOUTH PAIN Last Admin: 04/06/21 17:33 Dose: 7.5 ml Documented by: Dextrose (Dextrose 50% Syringe 50 Ml) 25 ml IVP ONCE PRN; Protocol PRN Reason: hypoglycemia protocol Dextrose (Dextrose 50% Syringe 50 Ml) 50 ml IVP PRN PRN; Protocol PRN Reason: hypoglycemia protocol Ergocalciferol (Ergocalciferol (Vitamin D2) 50,000 Unit Capsule) 50,000 unit PO Q7D [facility] Last Admin: 04/10/21 08:24 Dose: 50,000 unit Documented by: Glucagon (Glucagon 1 Mg/Ml Inj 1 Ml) 1 mg IM ONCE PRN; Protocol PRN Reason: Adult Acute Hypoglycemia Prot Heparin Sodium (Porcine) (Heparin 5,000 Unit/Ml Inj 1 Ml) 5,000 unit SUBCUT Q8H [facility] Last Admin: 04/08/21 13:23 Dose: 5,000 unit Documented by: Hydralazine HCl (Hydralazine 20 Mg/Ml Inj 1 Ml) 10 mg IVP Q4H PRN PRN Reason: if sbp>180 Dextrose (D5w) 500 mls @ 100 mls/hr IV ONCE PRN; Protocol PRN Reason: Adult Acute Hypoglycemia Prot Linezolid (Zyvox Premix) 600 mg in 300 mls @ 300 mls/hr IV Q12H [facility]; Protocol Last Infusion: 04/10/21 01:49 Dose: Infused Documented by: Piperacillin Sod/Tazobactam (Sod 3.375 gm/ Sodium Chloride) 50 mls @ 12.5 mls/hr IV Q8H [facility]; Protocol Last Admin: 04/10/21 04:34 Dose: 12.5 mls/hr Documented by: Albumin Human (Albumin) 25 gm in 100 mls @ 60 mls/hr IV Q8H [facility] Last Admin: 04/10/21 08:24 Dose: 60 mls/hr Documented by: Albumin Human (Albumin) 12.5 gm in 50 mls @ 60 mls/hr IV PRN PRN PRN Reason: Hypotension and/or symptomatic Insulin Glargine (Insulin Glargine 100 Units/1 Ml) 10 unit SUBCUT BID@0900,2100 [facility] Last Admin: 04/10/21 08:23 Dose: 10 unit Documented by: Insulin Human Lispro (Insulin Lispro 100 Unit/1 Ml) 0 unit SUBCUT WM&BEDTIME [facility]; Protocol Last Admin: 04/10/21 08:23 Dose: 6 unit Documented by: Metoclopramide HCl (Metoclopramide 5 Mg/Ml Sdv 2 Ml) 10 mg IVP Q6H PRN PRN Reason: NAUSEA AND VOMITING Last Admin: 03/30/21 11:12 Dose: 10 mg Documented by: Metoprolol Tartrate (Metoprolol Tartrate 25 Mg Tablet) 12.5 mg PO BID@0900,2100 [facility] Last Admin: 04/10/21 08:24 Dose: 12.5 mg Documented by: Multivitamins (A-Jtdwcqj-Ewkufbg C Tablet) 1 each PO DAILY [facility] Last Admin: 04/10/21 08:24 Dose: 1 each Documented by: Ondansetron HCl (Ondansetron 2 Mg/Ml Sdv 2 Ml) 4 mg IVP Q8H PRN PRN Reason: vomiting, or N/V if npo Last Admin: 04/06/21 14:39 Dose: 4 mg Documented by: Oxybutynin Chloride (Oxybutynin 5 Mg Tablet) 5 mg PO TID [facility] Last Admin: 04/10/21 08:24 Dose: 5 mg Documented by: Pantoprazole Sodium (Pantoprazole 40 Mg Sdv) 40 mg IVP Q12H [facility] Last Admin: 04/10/21 08:25 Dose: 40 mg Documented by: Vitals/I&O/Wt Last Vital Signs Temp 97.7 F 04/12/21 07:36 Pulse 98 04/12/21 08:48 Resp 16 04/12/21 08:48 BP 162/79 04/12/21 07:36 Pulse Ox 94 04/12/21 08:48 04/11/21 04/12/21 04/12/21 22:59 06:59 14:59 Intake Total 1015 / 1255 340 / 1595 240 / 240 Output Total 3800 / 3800 225 / 4025 Balance -2785 / -2545 115 / -2430 240 / 240 Weight last 48 hrs Weight 127.505 kg Weight 127.2 kg Physical Exam Narrative: EXAM NARRATIVE: Constitutional: Awake, comfortable HEENT: Wet mucosa, no jvp, non icteric Lungs: Bilaterally clear without discernible wheeze or rales in all lung zones CVS: S1 S2, no murmurs Abdo: Soft, BS ok Ext 4: Minimal edema, peripheral perfusion with no cyanosis Neurological: Grossly non-focal Urinary Catheter Management: Martinez: Cath Placed During This Visit: yes, but has since been removed by the nurse Reason for Continuing Indwelling Catheter: Acute Urinary Retention or Obstruction Urinary Catheter Date of Insertion: 04/06/21 Urinary Catheter Time of Insertion: 09:52 Date Urinary Catheter Removed: 04/04/21 Time Urinary Catheter Discontinued: 09:00 Data : 04/12/21 04:58 04/12/21 04:58 Micro: Microbiology 04/11/21 Unknown C.difficile Toxin B Gene (PCR) - Final Stool Routine Collection 04/11/21 09:00 Occult Blood (FIT) - Final Stool Routine Collection A&P Assessment and plan (1) Acute renal failure superimposed on stage 3b chronic kidney disease: 1. Acute kidney injury Differential diagnosis includes contrast nephropathy, infection mediated or myelopathy, acute interstitial nephritis. He is now starting to make urine, this is a promising sign. We will check renal function today, monitor over the weekend with plans for dialysis on Wednesday. If he still is not recovering by Wednesday then would recommend permacath and case management to organize outpatient dialysis for him. Avoid usual nephrotoxic agents Dose medication for GFR less than 15 2. Chemistry Labs pending for today, minor aberration yesterday 3. 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 Hemodynamics Blood pressure much more improved after ultrafiltration yesterday Kristofer Noble MD Nephrology [phone] Patient seen and examined via telemedicine, with the assistance of the bedside RN > 25 min spent in evaluation and mgmt of patient Status: Acute Attestations Medical Necessity Statement*: Eval for Acute Renal Failure Coding Level of Care Code Acute Link Trainer Maintenance Worker for Chg Fwd Diagnoses Acute renal failure superimposed on stage 3b chronic kidney disease N17.9; N18.32
[2021-04-12 11:05] LABS: Anion Gap 18.9 (5-19); Calcium 7.7 mg/dL (8.5-10.5); Osmolality Calculated 297 mOsm/kg (285-295)
[2021-04-12 11:06] LABS: Potassium 4.9 mmol/L (3.5-5.1)
--- NOTE | 2021-04-12 11:14 | PM.PN ---
Subjective Subjective: Interval history: Patient is doing well, received dialysis yesterday, denies significant leg or neck pain Medications: Reviewed: Yes Vitals/I&O/Wt Last Vital Signs Temp 97.7 F 04/12/21 07:36 Pulse 98 04/12/21 08:48 Resp 16 04/12/21 08:48 BP 162/79 04/12/21 07:36 Pulse Ox 94 04/12/21 08:48 04/11/21 04/12/21 04/12/21 22:59 06:59 14:59 Intake Total 1015 / 1595 340 / 1595 240 / 240 Output Total 3800 / 4025 225 / 4025 Balance -2785 / -2430 115 / -2430 240 / 240 Weight last 48 hrs Weight 281 lb 1.6 oz Weight 280 lb 6.848 oz Physical Exam Narrative: EXAM NARRATIVE: Left BKA stump: Incision clean dry and intact, no evidence of cellulitis or hematoma Urinary Catheter Management: Martinez: Cath Placed During This Visit: yes, but has since been removed by the nurse Reason for Continuing Indwelling Catheter: Acute Urinary Retention or Obstruction Urinary Catheter Date of Insertion: 04/06/21 Urinary Catheter Time of Insertion: 09:52 Date Urinary Catheter Removed: 04/04/21 Time Urinary Catheter Discontinued: 09:00 Data : 04/12/21 04:58 04/12/21 04:58 Micro: Microbiology 04/11/21 Unknown C.difficile Toxin B Gene (PCR) - Final Stool Routine Collection 04/11/21 09:00 Occult Blood (FIT) - Final Stool Routine Collection A&P Assessment and plan (1) S/P BKA (below knee amputation): Status post BKA for emphysematous osteomyelitis Daily dressing change with ABD, Kerlix, Sylvester wrap Knee immobilizer to prevent flexion contracture Continue PT WBC down to 4.4, currently on Augmentin Status: Acute (2) Acute renal failure superimposed on stage 3b chronic kidney disease: Status post placement of temporary dialysis catheter, catheter is functioning well Dialysis on hold for 2 more days, to assess for return of renal function Status: Acute Attestations Medical Necessity Statement*: As per primary Coding Level of Care Code Acute Community Health Advisor for [facility] Diagnoses S/P BKA (below knee amputation) Z89.519 Acute renal failure superimposed on stage 3b chronic kidney disease N17.9; N18.32
[2021-04-12 12:09] LABS: Glucose Point of Care 429 mg/dL (70-110)
--- NOTE | 2021-04-12 13:21 | P.PN_ITS ---
Subjective Subjective: Interval history: Occult blood test negative, hemoglobin stable status post 3 units in total 325 mL noticed in last 16 hours Dialysis on hold for next 2 days to assess for needing permacath on Wednesday Creatinine 3.5 Afebrile Room air saturating well Currently on Augmentin and doxycycline Right arm no DVT Vitals/I&O/Wt Last Vital Signs Temp 98.6 F 04/12/21 11:21 Pulse 93 04/12/21 11:21 Resp 16 04/12/21 11:21 BP 170/89 04/12/21 11:21 Pulse Ox 93 04/12/21 11:21 04/11/21 04/12/21 04/12/21 22:59 06:59 14:59 Intake Total 1015 / 1255 340 / 1595 476 / 476 Output Total 3800 / 3800 225 / 4025 Balance -2785 / -2545 115 / -2430 476 / 476 Weight last 48 hrs Weight 127.505 kg Weight 127.2 kg Physical Exam Narrative: EXAM NARRATIVE: Awake and alert Nonfocal neuro exam S1, S2 Saturating well on room air Distended abdomen Fluid overloaded however has improved since yesterday Dark-colored urine in the bag Nonfocal neuro exam EOMI, PERRLA Left leg stump minnie in place Urinary Catheter Management: Martinez: Cath Placed During This Visit: yes, but has since been removed by the nurse Reason for Continuing Indwelling Catheter: Acute Urinary Retention or Obstruction Urinary Catheter Date of Insertion: 04/06/21 Urinary Catheter Time of Insertion: 09:52 Date Urinary Catheter Removed: 04/04/21 Time Urinary Catheter Discontinued: 09:00 Data : 04/12/21 04:58 04/12/21 04:58 Micro: Microbiology 04/11/21 Unknown C.difficile Toxin B Gene (PCR) - Final Stool Routine Collection 04/11/21 09:00 Occult Blood (FIT) - Final Stool Routine Collection A&P Assessment and plan (1) Anemia: Status: Acute (2) Diarrhea: Status: Acute (3) Hypoglycemia: Status: Acute (4) S/P BKA (below knee amputation): Status: Acute (5) Foot osteomyelitis, left: Status: Acute (6) Diabetic peripheral neuropathy associated with type 2 diabetes mellitus: Status: Acute (7) Contrast dye induced nephropathy: Status: Acute (8) Hyperosmolar hyperglycemic state (HHS): Status: Acute Plan Contrast-induced nephropathy plan for hold dialysis for next 2 days and reassess if kidney function would improve, if it does not improve will arrange for permacath placement on Wednesday and then outpatient dialysis Status post BKA 04/05 for emphysematous osteomyelitis Continue doxycycline and Augmentin Cultures negative to date Afebrile Doing well on room air Anemia secondary to renal disease: Status post 3 unit PRBC FOBT negative, but 1 bag of iron as well Plan to discharge him home with home health services Wound care follow-up Hyperglycemia currently on insulin and carbohydrate diet Attestations Medical Necessity Statement*: Continue medical management Time Spent in Patient Care: Discharge possibly on Wednesday or Wednesday Coding Level of Care Code Acute Watch Dial Stoner for Chg Fwd Diagnoses Anemia D64.9 Diarrhea R19.7 Hypoglycemia E16.2 S/P BKA (below knee amputation) Z89.519 Foot osteomyelitis, left M86.9 Diabetic peripheral neuropathy associated with type 2 diabetes mellitus E11.42 Contrast dye induced nephropathy N14.1; T50.8X5A Hyperosmolar hyperglycemic state (HHS) E11.00; E11.65
[2021-04-12 17:30] LABS: Glucose Point of Care 436 mg/dL (70-110)
[2021-04-12] MEDS: hyDRALAzine 20 mg/mL INJ 1 mL 5 MG IVP (17:33)
[2021-04-12 20:27] LABS: Glucose Point of Care 437 mg/dL (70-110)
[2021-04-12] MEDS: heparin 5,000 unit/mL INJ 1 mL 5000 UNIT SUBCUT (21:37)
[2021-04-12] MEDS: atorvastatin 40 mg Tablet 20 MG PO (21:37)
[2021-04-13] VITALS (13 sets, daily range): BP systolic 170–194; BP diastolic 80–96; PULSE 87–105; RESP 16–18; TEMP 36.4–36.7; O2SAT 93–97
[2021-04-13] MEDS: hyDRALAzine 20 mg/mL INJ 1 mL 5 MG IVP ×3 (00:42→20:12)
[2021-04-13] MEDS: heparin 5,000 unit/mL INJ 1 mL 5000 UNIT SUBCUT ×2 (05:48→12:35)
[2021-04-13 06:39] LABS: Hematocrit 27.9 % (42.0-52.0); Hemoglobin 8.9 g/dL (11.7-16.6); Lymphocytes # 0.7 10^3/uL (0.8-4.8); Lymphocytes % 9.5 %; Mean Corpuscular HGB Conc 31.9 g/dL (30.0-36.0); Mean Corpuscular Hemoglobin 27.6 pg (28.0-34.0); Mean Corpuscular Volume 86.6 fl (80-94); Mean Platelet Volume 8.3 fL (7.4-10.4); Monocytes # 0.6 10^3/uL (0.2-0.9); Monocytes % 7.8 %; Neutrophils # 6.13 10^3/uL (1.8-7.7); Neutrophils % 81.9 %; Nucleated Red Blood Cells % 0 %; Platelet Count 284 10^3/cmm (130-400); Red Blood Count 3.22 10^6/uL (4.1-5.3); Red Cell Distribution Width 14.6 % (12.1-15.1); White Blood Count 7.5 10^3/uL (4.0-10.0)
[2021-04-13 06:42] LABS: Glucose Point of Care 400 mg/dL (70-110)
[2021-04-13 07:24] LABS: Magnesium 2.6 mg/dL (1.7-2.3); Phosphorus 4.6 mg/dL (2.5-4.5)
--- NOTE | 2021-04-13 08:31 | P.PN_ITS ---
Subjective Subjective: Interval history: Some pretty tight shiny skin from edema. Breathing comfortably, starting to make urine to the tune of 550mL over last 24hrs No uremic Sx No pain Medications: Reviewed: Yes Medication Review Details: Current Medications Acetaminophen (Acetaminophen 325 Mg Tablet) 650 mg PO Q6H PRN PRN Reason: Mild/Mod Pain Or Temp >/= 101 Last Admin: 04/09/21 22:31 Dose: 650 mg Documented by: Aspirin (Aspirin 81 Mg Ec Tablet) 81 mg PO DAILY COUNT INCLUDES THE [facility] Last Admin: 04/09/21 08:06 Dose: 81 mg Documented by: Atorvastatin Calcium (Atorvastatin 40 Mg Tablet) 20 mg PO BEDTIME COUNT INCLUDES THE [facility] Last Admin: 04/09/21 20:26 Dose: 20 mg Documented by: Bisacodyl (Bisacodyl 5 Mg Tablet) 10 mg PO DAILY PRN; Protocol PRN Reason: Constipation (see protocol) Lidocaine HCl 1.667 ml/Diphenhydramine HCl 4.165 mg/Al Hydrox/Mg Hydrox/Simethicone 1.667 ml 0 ml MUCOUS MEM Q4H PRN PRN Reason: MOUTH PAIN Last Admin: 04/06/21 17:33 Dose: 7.5 ml Documented by: Dextrose (Dextrose 50% Syringe 50 Ml) 25 ml IVP ONCE PRN; Protocol PRN Reason: hypoglycemia protocol Dextrose (Dextrose 50% Syringe 50 Ml) 50 ml IVP PRN PRN; Protocol PRN Reason: hypoglycemia protocol Ergocalciferol (Ergocalciferol (Vitamin D2) 50,000 Unit Capsule) 50,000 unit PO Q7D COUNT INCLUDES THE [facility] Last Admin: 04/10/21 08:24 Dose: 50,000 unit Documented by: Glucagon (Glucagon 1 Mg/Ml Inj 1 Ml) 1 mg IM ONCE PRN; Protocol PRN Reason: Adult Acute Hypoglycemia Prot Heparin Sodium (Porcine) (Heparin 5,000 Unit/Ml Inj 1 Ml) 5,000 unit SUBCUT Q8H COUNT INCLUDES THE [facility] Last Admin: 04/08/21 13:23 Dose: 5,000 unit Documented by: Hydralazine HCl (Hydralazine 20 Mg/Ml Inj 1 Ml) 10 mg IVP Q4H PRN PRN Reason: if sbp>180 Dextrose (D5w) 500 mls @ 100 mls/hr IV ONCE PRN; Protocol PRN Reason: Adult Acute Hypoglycemia Prot Linezolid (Zyvox Premix) 600 mg in 300 mls @ 300 mls/hr IV Q12H COUNT INCLUDES THE [facility]; Protocol Last Infusion: 04/10/21 01:49 Dose: Infused Documented by: Piperacillin Sod/Tazobactam (Sod 3.375 gm/ Sodium Chloride) 50 mls @ 12.5 mls/hr IV Q8H COUNT INCLUDES THE [facility]; Protocol Last Admin: 04/10/21 04:34 Dose: 12.5 mls/hr Documented by: Albumin Human (Albumin) 25 gm in 100 mls @ 60 mls/hr IV Q8H COUNT INCLUDES THE [facility] Last Admin: 04/10/21 08:24 Dose: 60 mls/hr Documented by: Albumin Human (Albumin) 12.5 gm in 50 mls @ 60 mls/hr IV PRN PRN PRN Reason: Hypotension and/or symptomatic Insulin Glargine (Insulin Glargine 100 Units/1 Ml) 10 unit SUBCUT BID@0900,2100 COUNT INCLUDES THE [facility] Last Admin: 04/10/21 08:23 Dose: 10 unit Documented by: Insulin Human Lispro (Insulin Lispro 100 Unit/1 Ml) 0 unit SUBCUT WM&BEDTIME COUNT INCLUDES THE [facility]; Protocol Last Admin: 04/10/21 08:23 Dose: 6 unit Documented by: Metoclopramide HCl (Metoclopramide 5 Mg/Ml Sdv 2 Ml) 10 mg IVP Q6H PRN PRN Reason: NAUSEA AND VOMITING Last Admin: 03/30/21 11:12 Dose: 10 mg Documented by: Metoprolol Tartrate (Metoprolol Tartrate 25 Mg Tablet) 12.5 mg PO BID@0900,2100 COUNT INCLUDES THE [facility] Last Admin: 04/10/21 08:24 Dose: 12.5 mg Documented by: Multivitamins (V-Yzroxfj-Mqdhvzb C Tablet) 1 each PO DAILY COUNT INCLUDES THE [facility] Last Admin: 04/10/21 08:24 Dose: 1 each Documented by: Ondansetron HCl (Ondansetron 2 Mg/Ml Sdv 2 Ml) 4 mg IVP Q8H PRN PRN Reason: vomiting, or N/V if npo Last Admin: 04/06/21 14:39 Dose: 4 mg Documented by: Oxybutynin Chloride (Oxybutynin 5 Mg Tablet) 5 mg PO TID COUNT INCLUDES THE [facility] Last Admin: 04/10/21 08:24 Dose: 5 mg Documented by: Pantoprazole Sodium (Pantoprazole 40 Mg Sdv) 40 mg IVP Q12H COUNT INCLUDES THE [facility] Last Admin: 04/10/21 08:25 Dose: 40 mg Documented by: Vitals/I&O/Wt Last Vital Signs Temp 97.8 F 04/13/21 08:00 Pulse 96 04/13/21 08:00 Resp 16 04/13/21 08:00 BP 192/89 04/13/21 08:00 Pulse Ox 93 04/13/21 08:00 04/12/21 04/13/21 04/13/21 22:59 06:59 14:59 Intake Total 220 / 796 100 / 896 Output Total 250 / 250 300 / 550 Balance -30 / 546 -200 / 346 Weight last 48 hrs Weight 131.088 kg Weight 127.505 kg Weight 127.2 kg Physical Exam Narrative: EXAM NARRATIVE: Constitutional: Awake, comfortable HEENT: Wet mucosa, no jvp, non icteric Lungs: Bilaterally clear without discernible wheeze or rales in all lung zones CVS: S1 S2, no murmurs Abdo: Soft, BS ok Ext 4: 2-3+ edema, peripheral perfusion with no cyanosis Neurological: Grossly non-focal Urinary Catheter Management: Martinez: Cath Placed During This Visit: yes, but has since been removed by the nurse Reason for Continuing Indwelling Catheter: Acute Urinary Retention or Obstruction Urinary Catheter Date of Insertion: 04/06/21 Urinary Catheter Time of Insertion: 09:52 Date Urinary Catheter Removed: 04/04/21 Time Urinary Catheter Discontinued: 09:00 Data : 04/13/21 06:03 04/12/21 04:58 A&P Assessment and plan (1) Acute renal failure superimposed on stage 3b chronic kidney disease: 1. Acute kidney injury Differential diagnosis includes contrast nephropathy, infection mediated or myelopathy, acute interstitial nephritis. He is now starting to make urine, this is a promising sign. Creatinine pending for today Lasix x 1 today Will check creatinine in the am, if dropping will hold dialysis and monitor, if increasing will place permacath and organize outpatient dialysis Avoid usual nephrotoxic agents Dose medication for GFR less than 15 2. Chemistry Labs pending for today, minor aberration yesterday 3. 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 Hemodynamics Blood pressure high this morning, morning meds still to exert effect and lasix may help Will add Amlodipine and DC albumin Kristofer Noble MD Nephrology [phone] Patient seen and examined via telemedicine, with the assistance of the bedside RN > 25 min spent in evaluation and mgmt of patient Status: Acute Attestations Medical Necessity Statement*: Eval for renal failure Coding Level of Care Code Acute Fireboat Operator for Chg Fwd Diagnoses Acute renal failure superimposed on stage 3b chronic kidney disease N17.9; N18.32
[2021-04-13] MEDS: FUROsemide 10 mg/mL SDV 10mL 60 MG IVP (09:11)
[2021-04-13] MEDS: amoxicillin-clav 875-125 mg Tablet 1 TAB PO ×2 (09:20→17:35)
[2021-04-13] MEDS: amlodipine 5 mg Tablet PO ×2 (09:20→09:28)
[2021-04-13] MEDS: b-complex-vitamin c Tablet 1 EACH PO (09:20)
[2021-04-13] MEDS: doxycycline 100 mg Tablet PO ×2 (09:20→17:35)
[2021-04-13] MEDS: pantoprazole DR 40 mg Tablet PO ×2 (09:20→20:04)
[2021-04-13] MEDS: metoprolol tartrate 25 mg Tablet 12.5 MG PO ×2 (09:20→20:08)
[2021-04-13] MEDS: oxybutynin 5 mg Tablet PO ×3 (09:21→20:04)
[2021-04-13] MEDS: insulin lispro 100 unit/1 mL SUBCUT ×4 (09:21→22:42)
[2021-04-13] MEDS: allopurinol 100 mg Tablet PO (09:21)
[2021-04-13 09:34] LABS: Albumin Level 4.2 g/dL (3.5-5.2); Blood Urea Nitrogen 64 mg/dL (6-20); Calcium 7.9 mg/dL (8.5-10.5); Carbon Dioxide 22 mmol/L (22-29); Chloride 91 mmol/L (98-107); Glomerular Filtration Rate 14.6 mL/min (90-130); Glucose 341 mg/dL (65-115); Phosphorus 5.1 mg/dL (2.5-4.5); Sodium 130 mmol/L (136-145)
[2021-04-13 09:39] LABS: Anion Gap 21.8 (5-19); Potassium 4.8 mmol/L (3.5-5.1)
[2021-04-13] MEDS: insulin glargine 100 units/1 mL 20 UNIT SUBCUT ×2 (10:30→20:04)
[2021-04-13 11:22] LABS: Glucose Point of Care 365 mg/dL (70-110)
--- NOTE | 2021-04-13 12:28 | P.PN_ITS ---
Subjective Subjective: Interval history: More than 400 mL noticed as urine output, creatinine has worsened, there is plan to monitor his creatinine and urine output for next 24 hours and then decide about permacath placement Appreciate nephro recommendations Patient is feeling much better, sister at the bedside Patient is awake and alert Still edematous Resistant hypervolemia No acute indication for dialysis Hemoglobin stable FOBT negative Persistent hyperglycemia We will add scheduled insulin and escalate Lantus dose to 25 twice daily, his Lantus dose was decreased because of worsening creatinine He had 1 bowel movement yesterday which was regular in consistency Vitals/I&O/Wt Last Vital Signs Temp 97.8 F 04/13/21 08:00 Pulse 99 04/13/21 09:35 Resp 16 04/13/21 09:35 BP 192/89 04/13/21 08:00 Pulse Ox 95 04/13/21 09:35 04/12/21 04/13/21 04/13/21 22:59 06:59 14:59 Intake Total 220 / 796 100 / 896 240 / 240 Output Total 250 / 250 300 / 550 Balance -30 / 546 -200 / 346 240 / 240 Weight last 48 hrs Weight 131.088 kg Weight 127.505 kg Weight 127.2 kg Physical Exam Narrative: EXAM NARRATIVE: Patient is still edematous Doing well on room air Puffy upper extremities Right lower leg still edematous Right arm PICC line Left leg BKA with minnie no active signs cellulitis Distended abdomen less firm Nonfocal neuro exam Awake and alert Bilateral breath sounds no active crackles or rhonchi Urinary Catheter Management: Martinez: Cath Placed During This Visit: yes, but has since been removed by the nurse Reason for Continuing Indwelling Catheter: Acute Urinary Retention or Obstruction Urinary Catheter Date of Insertion: 04/06/21 Urinary Catheter Time of Insertion: 09:52 Date Urinary Catheter Removed: 04/04/21 Time Urinary Catheter Discontinued: 09:00 Data : 04/13/21 06:03 04/13/21 06:03 A&P Assessment and plan (1) Anemia: Status: Acute (2) Diarrhea: Status: Acute (3) Hypoglycemia: Status: Acute (4) S/P BKA (below knee amputation): Status: Acute (5) Foot osteomyelitis, left: Status: Acute (6) Diabetic peripheral neuropathy associated with type 2 diabetes mellitus: Status: Acute (7) Contrast dye induced nephropathy: Status: Acute (8) Diabetes: Status: Acute (9) Essential hypertension: Status: Acute (10) Hyperosmolar hyperglycemic state (HHS): Status: Acute Plan in the hospital Contrast-induced nephropathy, dialysis on hold last session was on Wednesday Planning to monitor for next 24 hours to keep an eye on creatinine and urine output that we will decide permacath placement on Wednesday No acute indication for dialysis My suspicion is he will need permacath placement for worsening creatinine and r esistant hypervolemia We will hold heparin for tonight We will keep him n.p.o. after midnight Acute normocytic anemia: Hemoglobin stable 8.9 status post 3 units PRBC 1 bag of iron was given as well Resistant hypervolemia, has not improved significantly with dialysis and use of albumin Emphysematous osteomyelitis status post left BKA 04/[address] which will be removed 2 weeks after the surgery To follow-up with Dr. Limon Will need home health services at discharge for PT if patient wants Hyperglycemia His blood sugar is very labile, I decrease his Lantus because of worsening creat inine now is hyperglycemic and planning to add scheduled premeal and escalating Lantus twice a day Diarrhea: Improved no signs of C. difficile Semisolid stool UTI: Resolved DVT prophylaxis currently on hold Consistent carb diet Full code Attestations Medical Necessity Statement*: Continue medical management Coding Level of Care Code Acute Room Service Runner for Chg Fwd Diagnoses Anemia D64.9 Diarrhea R19.7 Hypoglycemia E16.2 S/P BKA (below knee amputation) Z89.519 Foot osteomyelitis, left M86.9 Diabetic peripheral neuropathy associated with type 2 diabetes mellitus E11.42 Contrast dye induced nephropathy N14.1; T50.8X5A Diabetes E11.9 Essential hypertension I10 Hyperosmolar hyperglycemic state (HHS) E11.00; E11.65
[2021-04-13] MEDS: acetaminophen 325 mg Tablet 650 MG PO ×2 (12:34→20:03)
[2021-04-13 16:47] LABS: Glucose Point of Care 331 mg/dL (70-110)
[2021-04-13] MEDS: atorvastatin 40 mg Tablet 20 MG PO (20:04)
[2021-04-13 22:22] LABS: Glucose Point of Care 226 mg/dL (70-110)
[2021-04-13] MEDS: oxyCODONE-APAP 5-325 mg Tablet 1 TAB PO (22:40)
[2021-04-14] VITALS (9 sets, daily range): BP systolic 162–198; BP diastolic 76–95; PULSE 87–110; RESP 16–18; TEMP 36.4–37.2; O2SAT 93–96
[2021-04-14 03:54] LABS: Eosinophils % 0.2 %; Hematocrit 29.7 % (42.0-52.0); Hemoglobin 9.6 g/dL (11.7-16.6); Mean Corpuscular HGB Conc 32.3 g/dL (30.0-36.0); Mean Corpuscular Volume 86.6 fl (80-94); Mean Platelet Volume 8.2 fL (7.4-10.4); Monocytes # 1.1 10^3/uL (0.2-0.9); Monocytes % 8.4 %; Neutrophils # 10.33 10^3/uL (1.8-7.7); Neutrophils % 82.6 %; Nucleated Red Blood Cells % 0 %; Platelet Count 304 10^3/cmm (130-400); Red Blood Count 3.43 10^6/uL (4.1-5.3); Red Cell Distribution Width 14.6 % (12.1-15.1); White Blood Count 12.5 10^3/uL (4.0-10.0)
[2021-04-14 04:20] LABS: Albumin Level 3.4 g/dL (3.5-5.2); Blood Urea Nitrogen 76 mg/dL (6-20); Calcium 7.8 mg/dL (8.5-10.5); Carbon Dioxide 23 mmol/L (22-29); Chloride 94 mmol/L (98-107); Glomerular Filtration Rate 13.2 mL/min (90-130); Glucose 193 mg/dL (65-115); Osmolality Calculated 300 mOsm/kg (285-295); Phosphorus 4.8 mg/dL (2.5-4.5); Sodium 131 mmol/L (136-145)
[2021-04-14 04:36] LABS: Anion Gap 18.9 (5-19); Potassium 4.9 mmol/L (3.5-5.1)
[2021-04-14 06:54] LABS: Glucose Point of Care 157 mg/dL (70-110)
[2021-04-14] MEDS: oxybutynin 5 mg Tablet PO ×3 (07:42→22:07)
[2021-04-14] MEDS: amlodipine 5 mg Tablet PO (07:42)
[2021-04-14] MEDS: pantoprazole DR 40 mg Tablet PO ×2 (07:42→22:07)
[2021-04-14] MEDS: b-complex-vitamin c Tablet 1 EACH PO (07:42)
[2021-04-14] MEDS: amoxicillin-clav 875-125 mg Tablet 1 TAB PO ×2 (07:42→17:07)
[2021-04-14] MEDS: doxycycline 100 mg Tablet PO ×2 (07:43→17:07)
[2021-04-14] MEDS: allopurinol 100 mg Tablet PO (07:43)
[2021-04-14] MEDS: insulin glargine 100 units/1 mL 20 UNIT SUBCUT ×2 (07:43→22:24)
[2021-04-14] MEDS: insulin lispro 100 unit/1 mL SUBCUT ×3 (07:46→22:23)
[2021-04-14] MEDS: hyDRALAzine 20 mg/mL INJ 1 mL 5 MG IVP (07:46)
[2021-04-14] MEDS: metoprolol tartrate 25 mg Tablet 12.5 MG PO ×2 (07:59→22:07)
[2021-04-14 13:51] LABS: Glucose Point of Care 128 mg/dL (70-110)
--- NOTE | 2021-04-14 15:04 | PM.PN ---
Subjective Subjective: Interval history: patient denies any nausea, vomiting or leg pain Medications: Reviewed: Yes Vitals/I&O/Wt Last Vital Signs Temp 97.7 F 04/14/21 11:24 Pulse 90 04/14/21 14:17 Resp 16 04/14/21 14:17 BP 176/95 04/14/21 11:24 Pulse Ox 96 04/14/21 14:17 04/14/21 04/14/21 04/14/21 06:59 14:59 22:59 Output Total 500 / 1100 Balance -500 / -140 Weight last 48 hrs Weight 289 lb 11.2 oz Weight 289 lb Physical Exam Narrative: EXAM NARRATIVE: Left BKA stump: incision c/d/i, still has significant edema Right IJ Urinary Catheter Management: Martinez: Cath Placed During This Visit: yes, but has since been removed by the nurse Reason for Continuing Indwelling Catheter: Acute Urinary Retention or Obstruction Urinary Catheter Date of Insertion: 04/06/21 Urinary Catheter Time of Insertion: 09:52 Date Urinary Catheter Removed: 04/04/21 Time Urinary Catheter Discontinued: 09:00 Data : 04/14/21 02:23 04/14/21 02:23 A&P Assessment and plan (1) S/P BKA (below knee amputation): Status post BKA for emphysematous osteomyelitis Daily dressing change with ABD, Kerlix, Sylvester wrap Knee immobilizer to prevent flexion contracture Continue PT Status: Acute (2) Acute renal failure superimposed on stage 3b chronic kidney disease: Status post placement of temporary dialysis catheter NPO after midnight Exchange to tunelled hemodialysis cathter under MAC tomorrow Status: Acute Attestations Medical Necessity Statement*: as per primary Coding Level of Care Code Acute In Home Caregiver for [facility] [place] Diagnoses S/P BKA (below knee amputation) Z89.519 Acute renal failure superimposed on stage 3b chronic kidney disease N17.9; N18.32
--- NOTE | 2021-04-14 16:28 | PM.PN ---
Subjective Subjective: Interval history: Patient seen lying in bed with in the room. Expecting to have a permanent dialysis catheter placed today and it had not yet been done. was concerned the patient did not receive medications. Patient reports he is uncomfortable due to his swelling. Vitals/I&O/Wt Last Vital Signs Temp 97.9 F 04/14/21 15:24 Pulse 110 H 04/14/21 15:24 Resp 17 04/14/21 15:24 BP 167/83 04/14/21 15:24 Pulse Ox 94 04/14/21 15:24 04/14/21 04/14/21 04/14/21 06:59 14:59 22:59 Output Total 500 / 1100 Balance -500 / -140 Weight last 48 hrs Weight 131.406 kg Weight 131.088 kg Physical Exam Narrative: EXAM NARRATIVE: Patient in mild distress due to edema Cardiac: Normal S1-S2 without murmurs clicks gallops or rubs Lungs: Clear to auscultation and anteriorly Abdomen: Distended but soft to palpation no rebound rigidity or guarding nontender. Extremities: +4 pitting edema to groin Neurologic: Alert oriented to person place time and situation Urinary Catheter Management: Martinez: Cath Placed During This Visit: yes, but has since been removed by the nurse Reason for Continuing Indwelling Catheter: Acute Urinary Retention or Obstruction Urinary Catheter Date of Insertion: 04/06/21 Urinary Catheter Time of Insertion: 09:52 Date Urinary Catheter Removed: 04/04/21 Time Urinary Catheter Discontinued: 09:00 Data : 04/14/21 02:23 04/14/21 02:23 A&P Assessment and plan (1) Anemia: Status: Acute (2) Diarrhea: Status: Acute (3) Hypoglycemia: Status: Acute (4) S/P BKA (below knee amputation): Status: Acute (5) Foot osteomyelitis, left: Status: Acute (6) Diabetic peripheral neuropathy associated with type 2 diabetes mellitus: Status: Acute (7) Contrast dye induced nephropathy: Status: Acute (8) Diabetes: Status: Acute (9) Essential hypertension: Status: Acute (10) Hyperosmolar hyperglycemic state (HHS): Status: Acute Plan Day in the hospital Contrast-induced nephropathy, dialysis on hold last session was on Wednesday Scheduled for HD/UF today Did discuss with Dr. Noble - nephrology. Pt will require permacath. D/W Dr. Limon via RN in OR and pt to be placed on schedule for tomorrow for permacath. We will hold heparin for tonight We will keep him n.p.o. after midnight Acute normocytic anemia: Hemoglobin stable 8.9 status post 3 units PRBC 1 bag of iron was given as well Resistant hypervolemia, has not improved significantly with dialysis and use of albumin Emphysematous osteomyelitis status post left BKA 04/[address] which will be removed 2 weeks after the surgery To follow-up with Dr. Limon Will need home health services at discharge for PT if patient wants Hyperglycemia His blood sugar is very labile,currently on lantus and HL Diarrhea: Improved no signs of C. difficile Semisolid stool UTI: Resolved DVT prophylaxis currently on hold Consistent carb diet Full code Attestations Medical Necessity Statement*: Patient needs continued hemodialysis and ultrafiltration. Permacath needs to be placed in order to schedule outpatient dialysis Coding Level of Care Code Acute Housing Assistant Property Manager for Chg Fwd Diagnoses Anemia D64.9 Diarrhea R19.7 Hypoglycemia E16.2 S/P BKA (below knee amputation) Z89.519 Foot osteomyelitis, left M86.9 Diabetic peripheral neuropathy associated with type 2 diabetes mellitus E11.42 Contrast dye induced nephropathy N14.1; T50.8X5A Diabetes E11.9 Essential hypertension I10 Hyperosmolar hyperglycemic state (HHS) E11.00; E11.65
[2021-04-14 17:16] LABS: Glucose Point of Care 190 mg/dL (70-110)
--- NOTE | 2021-04-14 19:28 | PC.NURSE ---
SHIFT CHANGE Pt gone to dialysis
[2021-04-14] MEDS: atorvastatin 40 mg Tablet 20 MG PO (22:07)
[2021-04-14 22:29] LABS: Glucose Point of Care 182 mg/dL (70-110)
--- NOTE | 2021-04-14 22:48 | PC.NURSE ---
RETURN TO ROOM Pt returned to room from dialysis at 2205. Says is a litle tired fter dialysis. Reported by dialysis nurse to have removed 4 liters with treatment. Incont very large loose BM and was cleaned up on arrival back to room. Says he has been having trouble knowing when he needs to go. Edema is improved from the last time this nurse cared for pt. Continues with generalized pitting edema and edematous scrotum. Martinez intact. Given pm meds on return to room. Is aware will be NPO after midnight for permanent dialysis port placement. Temporary cath is intact to right jugular.
[2021-04-15] VITALS (19 sets, daily range): BP systolic 120–181; BP diastolic 64–96; PULSE 86–115; RESP 14–20; TEMP 36.1–37.5; O2SAT 93–98
--- NOTE | 2021-04-15 | SCC_ITS ---
Procedure done: 1. Exchange of temporary dialysis catheter to tunneled 16 Far[place] 23 cm long AshSplit hemodialysis catheter 2. Fluoroscopic guidance and interpretation for placement of catheter 84.4 seconds of fluoroscopic guidance, for a cumulative dose of 17.43 mGy, was provided to Dr. Limon by the radiology department. C-arm images of the chest were saved for the patient's permanent record. [facility]
[2021-04-15] MEDS: ipratropium-albuterol 3 mL Neb INHALATION (02:19)
[2021-04-15 05:51] LABS: Albumin Level 3.2 g/dL (3.5-5.2); Blood Urea Nitrogen 53 mg/dL (6-20); Calcium 7.7 mg/dL (8.5-10.5); Carbon Dioxide 26 mmol/L (22-29); Chloride 98 mmol/L (98-107); Glomerular Filtration Rate 17.5 mL/min (90-130); Glucose 130 mg/dL (65-115); Phosphorus 4.3 mg/dL (2.5-4.5); Sodium 134 mmol/L (136-145)
[2021-04-15 05:53] LABS: Anion Gap 14.4 (5-19); Potassium 4.4 mmol/L (3.5-5.1)
[2021-04-15 06:45] LABS: Glucose Point of Care 117 mg/dL (70-110)
--- NOTE | 2021-04-15 09:23 | PM.PN ---
Subjective Subjective: Mr. Kruger feels generally well, dialysis went well yesterday. Good improvement in his extremity edema after 4 L of ultrafiltration. No uremic symptoms. 900 mL of urine output overnight. Pending permacath placement today. Medications: Reviewed: Yes Medication Review Details: Current Medications Acetaminophen (Acetaminophen 325 Mg Tablet) 650 mg PO Q6H PRN PRN Reason: Mild/Mod Pain Or Temp >/= 101 Last Admin: 04/09/21 22:31 Dose: 650 mg Documented by: Aspirin (Aspirin 81 Mg Ec Tablet) 81 mg PO DAILY [facility] Last Admin: 04/09/21 08:06 Dose: 81 mg Documented by: Atorvastatin Calcium (Atorvastatin 40 Mg Tablet) 20 mg PO BEDTIME [facility] Last Admin: 04/09/21 20:26 Dose: 20 mg Documented by: Bisacodyl (Bisacodyl 5 Mg Tablet) 10 mg PO DAILY PRN; Protocol PRN Reason: Constipation (see protocol) Lidocaine HCl 1.667 ml/Diphenhydramine HCl 4.165 mg/Al Hydrox/Mg Hydrox/Simethicone 1.667 ml 0 ml MUCOUS MEM Q4H PRN PRN Reason: MOUTH PAIN Last Admin: 04/06/21 17:33 Dose: 7.5 ml Documented by: Dextrose (Dextrose 50% Syringe 50 Ml) 25 ml IVP ONCE PRN; Protocol PRN Reason: hypoglycemia protocol Dextrose (Dextrose 50% Syringe 50 Ml) 50 ml IVP PRN PRN; Protocol PRN Reason: hypoglycemia protocol Ergocalciferol (Ergocalciferol (Vitamin D2) 50,000 Unit Capsule) 50,000 unit PO Q7D [facility] Last Admin: 04/10/21 08:24 Dose: 50,000 unit Documented by: Glucagon (Glucagon 1 Mg/Ml Inj 1 Ml) 1 mg IM ONCE PRN; Protocol PRN Reason: Adult Acute Hypoglycemia Prot Heparin Sodium (Porcine) (Heparin 5,000 Unit/Ml Inj 1 Ml) 5,000 unit SUBCUT Q8H [facility] Last Admin: 04/08/21 13:23 Dose: 5,000 unit Documented by: Hydralazine HCl (Hydralazine 20 Mg/Ml Inj 1 Ml) 10 mg IVP Q4H PRN PRN Reason: if sbp>180 Dextrose (D5w) 500 mls @ 100 mls/hr IV ONCE PRN; Protocol PRN Reason: Adult Acute Hypoglycemia Prot Linezolid (Zyvox Premix) 600 mg in 300 mls @ 300 mls/hr IV Q12H [facility]; Protocol Last Infusion: 04/10/21 01:49 Dose: Infused Documented by: Piperacillin Sod/Tazobactam (Sod 3.375 gm/ Sodium Chloride) 50 mls @ 12.5 mls/hr IV Q8H [facility]; Protocol Last Admin: 04/10/21 04:34 Dose: 12.5 mls/hr Documented by: Albumin Human (Albumin) 25 gm in 100 mls @ 60 mls/hr IV Q8H [facility] Last Admin: 04/10/21 08:24 Dose: 60 mls/hr Documented by: Albumin Human (Albumin) 12.5 gm in 50 mls @ 60 mls/hr IV PRN PRN PRN Reason: Hypotension and/or symptomatic Insulin Glargine (Insulin Glargine 100 Units/1 Ml) 10 unit SUBCUT BID@0900,2100 [facility] Last Admin: 04/10/21 08:23 Dose: 10 unit Documented by: Insulin Human Lispro (Insulin Lispro 100 Unit/1 Ml) 0 unit SUBCUT WM&BEDTIME [facility]; Protocol Last Admin: 04/10/21 08:23 Dose: 6 unit Documented by: Metoclopramide HCl (Metoclopramide 5 Mg/Ml Sdv 2 Ml) 10 mg IVP Q6H PRN PRN Reason: NAUSEA AND VOMITING Last Admin: 03/30/21 11:12 Dose: 10 mg Documented by: Metoprolol Tartrate (Metoprolol Tartrate 25 Mg Tablet) 12.5 mg PO BID@0900,2100 [facility] Last Admin: 04/10/21 08:24 Dose: 12.5 mg Documented by: Multivitamins (H-Ritwrqs-Xzidrvp C Tablet) 1 each PO DAILY [facility] Last Admin: 04/10/21 08:24 Dose: 1 each Documented by: Ondansetron HCl (Ondansetron 2 Mg/Ml Sdv 2 Ml) 4 mg IVP Q8H PRN PRN Reason: vomiting, or N/V if npo Last Admin: 04/06/21 14:39 Dose: 4 mg Documented by: Oxybutynin Chloride (Oxybutynin 5 Mg Tablet) 5 mg PO TID [facility] Last Admin: 04/10/21 08:24 Dose: 5 mg Documented by: Pantoprazole Sodium (Pantoprazole 40 Mg Sdv) 40 mg IVP Q12H [facility] Last Admin: 04/10/21 08:25 Dose: 40 mg Documented by: Vitals/I&O/Wt Last Vital Signs Temp 98.2 F 04/15/21 07:35 Pulse 115 H 04/15/21 07:35 Resp 16 04/15/21 07:35 BP 160/85 04/15/21 07:35 Pulse Ox 95 04/15/21 07:35 04/14/21 04/15/21 04/15/21 22:59 06:59 14:59 Intake Total 494 / 494 200 / 694 Output Total 4754 / 4754 400 / 5154 Balance -4260 / -4260 -200 / -4460 Weight last 48 hrs Weight 125.6 kg Weight 126.6 kg Weight 131.406 kg Physical Exam Narrative: Constitutional: Awake, comfortable HEENT: Wet mucosa, no jvp, non icteric Lungs: Bilaterally clear without discernible wheeze or rales in all lung zones CVS: S1 S2, no murmurs Abdo: Soft, BS ok Ext 4: 2-3+ edema, peripheral perfusion with no cyanosis Neurological: Grossly non-focal Urinary Catheter Management: Martinez: Cath Placed During This Visit: yes, but has since been removed by the nurse Reason for Continuing Indwelling Catheter: Other Urinary Catheter Date of Insertion: 04/06/21 Urinary Catheter Time of Insertion: 09:52 Date Urinary Catheter Removed: 04/04/21 Time Urinary Catheter Discontinued: 09:00 Data : 04/14/21 02:23 04/15/21 04:56 A&P Assessment and plan (1) Acute renal failure superimposed on stage 3b chronic kidney disease: 1. Acute kidney injury Differential diagnosis includes contrast nephropathy, infection mediated or myelopathy, acute interstitial nephritis. Permacath today Dialysis scheduled for tomorrow Close monitoring for recovery Martinez out this afternoon spd manager to organize outpatient dialysis Avoid usual nephrotoxic agents Dose medication for GFR less than 15 2. Chemistry minor aberration 3. 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 Hemodynamics Blood pressure with some fluctuation 210-170 systolic, monitor for now 5. Dispo ok for DC when has set up outpatient HD Kristofer Noble MD Nephrology [phone] Patient seen and examined via telemedicine, with the assistance of the bedside RN > 25 min spent in evaluation and mgmt of patient Status: Acute Attestations Medical Necessity Statement*: eval for ALESIA Coding Level of Care Code Acute Generalist for Paula Fwjett Diagnoses Acute renal failure superimposed on stage 3b chronic kidney disease N17.9; N18.32
[2021-04-15] MEDS: amoxicillin-clav 875-125 mg Tablet 1 TAB PO ×2 (09:26→16:56)
[2021-04-15] MEDS: amlodipine 5 mg Tablet PO (09:27)
[2021-04-15] MEDS: metoprolol tartrate 25 mg Tablet 12.5 MG PO ×2 (09:27→21:12)
[2021-04-15] MEDS: allopurinol 100 mg Tablet PO (09:27)
[2021-04-15] MEDS: oxybutynin 5 mg Tablet PO ×3 (09:27→21:02)
[2021-04-15] MEDS: b-complex-vitamin c Tablet 1 EACH PO (09:27)
[2021-04-15] MEDS: doxycycline 100 mg Tablet PO ×2 (09:27→16:56)
[2021-04-15] MEDS: pantoprazole DR 40 mg Tablet PO ×2 (09:27→21:00)
[2021-04-15] MEDS: insulin glargine 100 units/1 mL 20 UNIT SUBCUT ×2 (09:32→21:13)
--- NOTE | 2021-04-15 11:11 | ANES.PREANE2 ---
Pre-Anesthetic Assessment Height/Weight: Height 1.75 m Weight 125.6 kg Temp Pulse Resp BP Pulse Ox 98.2 F 95 18 160/85 96 04/15/21 07:35 04/15/21 10:34 04/15/21 10:34 04/15/21 07:35 04/15/21 10:34 Preop Diagnosis: Emphysematous osteomyelitis Operation Date: 03/30/21 14:45 Proposed Procedures p Incision And Drainage left foot(Left) - Sergo Limon MD Operation Date: 04/05/21 08:00 Proposed Procedures p BKA (Below Knee Amputation)(Left) - Sergo Limon MD Operation Date: 04/15/21 12:00 Proposed Procedures p Dialysis Catheter Insertion(Not Applicable) - Sergo Limon MD Familial anesthetic complications: none Was Beta Driss taken within 24 hours: N/A Was Clonidine taken within 24 hours: N/A Last intake: Intake Last Liquid Date 04/14/21 Last Liquid Time 23:30 Last Solid Date 04/14/21 Last Solid Time 17:00 Social No alcohol and No tobacco Exam alert, oriented x 3, clear to auscultation bilaterally and regular rate & rhythm Airway Mallampati: Class III Dentition: false CV/HEM Atrial Fibrillation, Hypertension and Peripheral Vascular Disease hypervolemia Chronic Renal Insufficiency Metabolic Diabetes Mellitus and Morbid Obesity Anesthetic Plan ASA status: 4 Anesthesia: MAC Medications/Allergies Home Medications Medication Instructions Recorded Confirmed Last Taken Type aspirin 81 mg tablet,delayed 81 mg PO DAILY 06/16/19 03/26/21 09/21/20 History release (Adult Aspirin Regimen) flash glucose sensor (FreeStyle #1 ea 08/21/20 03/26/21 Unknown Rx Julius 2 Sensor) exenatide (Byetta) 10 mcg SUBCUT DAILY 09/21/20 03/26/21 09/21/20 History albuterol sulfate 90 mcg/actuation 1 inh INHALATION QID PRN #8.5 g 09/23/20 03/26/21 Unknown Rx aerosol inhaler empagliflozin 10 mg tablet 10 mg PO DAILY 03/26/21 03/26/21 Unknown History (Jardiance) insulin detemir U-100 100 unit/mL 25 unit SUBCUT BID 03/26/21 03/26/21 Unknown History (3 mL) subcutaneous pen (Levemir FlexTouch U-100 Insulin) insulin lispro 100 unit/mL See Rx Instructions .ROUTE .COMPLEX 03/26/21 03/26/21 Unknown History subcutaneous pen (Humalog KwikPen (U-100) Insulin) lisinopril 10 mg tablet 10 mg PO DAILY 03/26/21 03/26/21 Unknown History Allergies Allergy/AdvReac Type Severity Reaction Status Date / Time No Known Allergies Allergy Verified 03/26/21 04:57 Current Medications Generic Name Dose Route Start Last Admin Trade Name Roseanne PRN Reason Stop Dose Admin Albuterol/Ipratropium 3 ml 04/11/21 03:00 04/15/21 10:34 Ipratropium-Albuterol 3 Ml Neb INHALATION Not Given Q6H.RESPIRATORY [facility] Allopurinol 100 mg 04/11/21 09:00 04/15/21 09:27 Allopurinol 100 Mg Tablet PO 100 mg DAILY [facility] Administration Amlodipine Besylate 5 mg 04/13/21 08:35 04/15/21 09:27 Amlodipine 5 Mg Tablet PO 5 mg DAILY [facility] Administration Amoxicillin/Clavulanate Potassium 1 tab 04/10/21 18:00 04/15/21 09:26 Amoxicillin-Clav 875-125 Mg Tablet PO 1 tab BID [facility] Administration Protocol Aspirin 81 mg 03/26/21 09:00 04/09/21 08:06 Aspirin 81 Mg Ec Tablet PO 81 mg DAILY [facility] Administration Atorvastatin Calcium 20 mg 03/26/21 21:00 04/14/21 22:07 Atorvastatin 40 Mg Tablet PO 20 mg BEDTIME [facility] Administration Lidocaine HCl 1.667 ml/ 0 ml 04/06/21 16:41 04/06/21 17:33 Diphenhydramine HCl 4.165 mg/ MUCOUS MEM 7.5 ml Al Hydrox/Mg Hydrox/ Q4H PRN Administration Simethicone 1.667 ml MOUTH PAIN Doxycycline Monohydrate 100 mg 04/10/21 18:00 04/15/21 09:27 Doxycycline 100 Mg Tablet PO 100 mg BID [facility] Administration Protocol Ergocalciferol 50,000 unit 04/03/21 10:15 04/10/21 08:24 Ergocalciferol (Vitamin D2) 50,000 Unit Capsule PO 50,000 unit Q7D [facility] Administration Heparin Sodium (Porcine) 5,000 unit 03/31/21 21:00 04/13/21 12:35 Heparin 5,000 Unit/Ml Inj 1 Ml SUBCUT 5,000 unit Q8H [facility] Administration Hydralazine HCl 5 mg 04/10/21 18:40 04/14/21 07:46 Hydralazine 20 Mg/Ml Inj 1 Ml IVP 5 mg Q4H PRN Administration sbp>180 Insulin Glargine 20 unit 04/13/21 09:00 04/15/21 09:32 Insulin Glargine 100 Units/1 Ml SUBCUT 20 unit BID@0900,2100 [facility] Administration Insulin Human Lispro 0 unit 04/09/21 12:00 04/15/21 07:43 Insulin Lispro 100 Unit/1 Ml SUBCUT Not Given WM&BEDTIME [facility] Protocol Metoprolol Tartrate 12.5 mg 03/29/21 10:20 04/15/21 09:27 Metoprolol Tartrate 25 Mg Tablet PO 12.5 mg BID@0900,2100 [facility] Administration Multivitamins 1 each 04/01/21 09:00 04/15/21 09:27 K-Okgytmt-Dorjfho C Tablet PO 1 each DAILY [facility] Administration Oxybutynin Chloride 5 mg 04/06/21 09:30 04/15/21 09:27 Oxybutynin 5 Mg Tablet PO 5 mg TID [facility] Administration Oxycodone/Acetaminophen 1 tab 04/13/21 20:18 04/13/21 22:40 Oxycodone-Apap 5-325 Mg Tablet PO 1 tab Q4H PRN Administration MODERATE PAIN Pantoprazole Sodium 40 mg 04/13/21 09:00 04/15/21 09:[address] 40 Mg Tablet PO 40 mg Q12H [facility] Administration Additional Medication Information Current Medications Acetaminophen (Acetaminophen 325 Mg Tablet) 650 mg PO Q6H PRN PRN Reason: Mild/Mod Pain Or Temp >/= 101 Last Admin: 04/09/21 22:31 Dose: 650 mg Documented by: Aspirin (Aspirin 81 Mg Ec Tablet) 81 mg PO DAILY [facility] Last Admin: 04/09/21 08:06 Dose: 81 mg Documented by: Atorvastatin Calcium (Atorvastatin 40 Mg Tablet) 20 mg PO BEDTIME [facility] Last Admin: 04/09/21 20:26 Dose: 20 mg Documented by: Bisacodyl (Bisacodyl 5 Mg Tablet) 10 mg PO DAILY PRN; Protocol PRN Reason: Constipation (see protocol) Lidocaine HCl 1.667 ml/Diphenhydramine HCl 4.165 mg/Al Hydrox/Mg Hydrox/Simethicone 1.667 ml 0 ml MUCOUS MEM Q4H PRN PRN Reason: MOUTH PAIN Last Admin: 04/06/21 17:33 Dose: 7.5 ml Documented by: Dextrose (Dextrose 50% Syringe 50 Ml) 25 ml IVP ONCE PRN; Protocol PRN Reason: hypoglycemia protocol Dextrose (Dextrose 50% Syringe 50 Ml) 50 ml IVP PRN PRN; Protocol PRN Reason: hypoglycemia protocol Ergocalciferol (Ergocalciferol (Vitamin D2) 50,000 Unit Capsule) 50,000 unit PO Q7D [facility] Last Admin: 04/10/21 08:24 Dose: 50,000 unit Documented by: Glucagon (Glucagon 1 Mg/Ml Inj 1 Ml) 1 mg IM ONCE PRN; Protocol PRN Reason: Adult Acute Hypoglycemia Prot Heparin Sodium (Porcine) (Heparin 5,000 Unit/Ml Inj 1 Ml) 5,000 unit SUBCUT Q8H [facility] Last Admin: 04/08/21 13:23 Dose: 5,000 unit Documented by: Hydralazine HCl (Hydralazine 20 Mg/Ml Inj 1 Ml) 10 mg IVP Q4H PRN PRN Reason: if sbp>180 Dextrose (D5w) 500 mls @ 100 mls/hr IV ONCE PRN; Protocol PRN Reason: Adult Acute Hypoglycemia Prot Linezolid (Zyvox Premix) 600 mg in 300 mls @ 300 mls/hr IV Q12H [facility]; Protocol Last Infusion: 04/10/21 01:49 Dose: Infused Documented by: Piperacillin Sod/Tazobactam (Sod 3.375 gm/ Sodium Chloride) 50 mls @ 12.5 mls/hr IV Q8H [facility]; Protocol Last Admin: 04/10/21 04:34 Dose: 12.5 mls/hr Documented by: Albumin Human (Albumin) 25 gm in 100 mls @ 60 mls/hr IV Q8H [facility] Last Admin: 04/10/21 08:24 Dose: 60 mls/hr Documented by: Albumin Human (Albumin) 12.5 gm in 50 mls @ 60 mls/hr IV PRN PRN PRN Reason: Hypotension and/or symptomatic Insulin Glargine (Insulin Glargine 100 Units/1 Ml) 10 unit SUBCUT BID@0900,2100 [facility] Last Admin: 04/10/21 08:23 Dose: 10 unit Documented by: Insulin Human Lispro (Insulin Lispro 100 Unit/1 Ml) 0 unit SUBCUT WM&BEDTIME [facility]; Protocol Last Admin: 04/10/21 08:23 Dose: 6 unit Documented by: Metoclopramide HCl (Metoclopramide 5 Mg/Ml Sdv 2 Ml) 10 mg IVP Q6H PRN PRN Reason: NAUSEA AND VOMITING Last Admin: 03/30/21 11:12 Dose: 10 mg Documented by: Metoprolol Tartrate (Metoprolol Tartrate 25 Mg Tablet) 12.5 mg PO BID@0900,2100 [facility] Last Admin: 04/10/21 08:24 Dose: 12.5 mg Documented by: Multivitamins (C-Zvcszcw-Ygvxlrp C Tablet) 1 each PO DAILY [facility] Last Admin: 04/10/21 08:24 Dose: 1 each Documented by: Ondansetron HCl (Ondansetron 2 Mg/Ml Sdv 2 Ml) 4 mg IVP Q8H PRN PRN Reason: vomiting, or N/V if npo Last Admin: 04/06/21 14:39 Dose: 4 mg Documented by: Oxybutynin Chloride (Oxybutynin 5 Mg Tablet) 5 mg PO TID [facility] Last Admin: 04/10/21 08:24 Dose: 5 mg Documented by: Pantoprazole Sodium (Pantoprazole 40 Mg Sdv) 40 mg IVP Q12H [facility] Last Admin: 04/10/21 08:25 Dose: 40 mg Documented by: [facility] Anesthesia Medical History (Updated 04/10/21 @ 11:49 by Woodrow Metzger MD) Acquired rearfoot varus Chronic renal impairment 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 Diabetes type 2, uncontrolled Diabetic peripheral neuropathy associated with type 2 diabetes mellitus Essential hypertension Foot abscess, left Hyperlipidemia associated with type 2 diabetes mellitus Hyperlipidemia, mixed Statin intolerance Surgical History (Updated 04/06/21 @ 14:49 by Sergo Limon MD) Amputated toe of right foot secondary to osteomyelitis 4th right toe History of amputation of lesser toe History of partial amputation of toe of right foot S/P BKA (below knee amputation) (04/05/21) Family History Father Diabetes Mother Diabetes Other Hypertension Social History Smoking and tobacco status: never smoked Second hand smoke exposure: No Smoking risk assessment/counseling performed?: No Alcohol intake: former Desire information about alcohol rehabilitation?: No Counseling given: No Desire information about substance/drug rehabilitation?: No Counseling given: No Adopted: No Caregiver/support person: No Lives independently: Yes Household members: spouse Housing: House Marital status: service: No Current occupational status: employed Pets and animals: Yes History of recent travel: No Current gender identity: Male Data Anesthesia : 04/14/21 02:23 04/15/21 04:56 Short CBC 04/14/21 Range/Units 02:23 WBC 12.5 H (4.0-10.0) 10^3/uL Hgb 9.6 L (11.7-16.6) g/dL Hct 29.7 L (42.0-52.0) % MCV 86.6 (80-94) fl Plt Count 304 (130-400) 10^3/cmm Neut % (Auto) 82.6 % Neut # (Auto) 10.33 H (1.8-7.7) 10^3/uL BMP 04/14/21 04/15/21 02:23 04:56 Sodium 131 L 134 L Potassium 4.9 4.4 Chloride 94 L 98 Carbon Dioxide 23 26 BUN 76 H 53 H Creatinine 4.6 H 3.6 H Glucose 193 H 130 H Calcium 7.8 L 7.7 L Liver Function 04/14/21 04/15/21 Range/Units 02:23 04:56 Albumin 3.4 L 3.2 L (3.5-5.2) g/dL Cardiac Studies: Echocardiogram 09/22/20 Sestamibi Stress Test (Cardiology) 09/23/20
--- NOTE | 2021-04-15 11:31 | SC_ITS ---
WS: [id number] C-arm [place] for CVA [id number] REASON FOR EXAM: hemodialysis catheter insertion FINDINGS: Right internal jugular dialysis catheter placement. Catheter tip is at the atrial junction. Right arm PICC line in place with the tip in the distal superior vena cava. No pneumothorax. SC/C-arm [place] for CVA [id number] IMPRESSION: Dialysis catheter placement as above.
[2021-04-15] MEDS: sodium chloride 0.9% 1,000 ML 30 ML IV (11:35)
--- NOTE | 2021-04-15 12:17 | P.PN_ITS ---
Subjective Subjective: patient denies any nausea, vomiting or leg pain Medications: Reviewed: Yes Vitals/I&O/Wt Last Vital Signs Temp 97 F L 04/15/21 11:15 Pulse 102 H 04/15/21 11:15 Resp 20 H 04/15/21 11:15 BP 175/83 04/15/21 11:15 Pulse Ox 96 04/15/21 11:15 04/14/21 04/15/21 04/15/21 22:59 06:59 14:59 Intake Total 494 / 694 200 / 694 Output Total 4754 / 5154 400 / 5154 Balance -4260 / -4460 -200 / -4460 Weight last 48 hrs Weight 276 lb 14.4 oz Weight 279 lb 1.683 oz Weight 289 lb 11.2 oz Physical Exam Narrative: Right neck: Temporary dialysis catheter in place Urinary Catheter Management: Martinez: Cath Placed During This Visit: yes, but has since been removed by the nurse Reason for Continuing Indwelling Catheter: Other Urinary Catheter Date of Insertion: 04/06/21 Urinary Catheter Time of Insertion: 09:52 Date Urinary Catheter Removed: 04/04/21 Time Urinary Catheter Discontinued: 09:00 Data : 04/14/21 02:23 04/15/21 04:56 A&P Assessment and plan (1) S/P BKA (below knee amputation): Status post BKA for emphysematous osteomyelitis Daily dressing change with ABD, Kerlix, Sylvester wrap Knee immobilizer to prevent flexion contracture Continue PT Status: Acute (2) Acute renal failure superimposed on stage 3b chronic kidney disease: Status post placement of temporary dialysis catheter Exchange to tunelled hemodialysis cathter under MAC today Status: Acute Attestations Medical Necessity Statement*: As per primary Coding Level of Care Code Acute Social Services Director for g Fwd Diagnoses S/P BKA (below knee amputation) Z89.519 Acute renal failure superimposed on stage 3b chronic kidney disease N17.9; N18.32
[2021-04-15] MEDS: ceFAZolin 1,000 mg SDV 1000 MG IVP (12:39)
[2021-04-15] MEDS: heparin, porcine 1,000 unit/mL INJ 10 mL 6000 UNIT INJECTION (12:40)
[2021-04-15] MEDS: lidocaine 1% INJ 20 mL INJECTION (12:40)
[2021-04-15 12:44] LABS: Glucose Point of Care 102 mg/dL (70-110)
[2021-04-15 12:48] LABS: Glucose Point of Care 82 mg/dL (70-110)
--- NOTE | 2021-04-15 13:08 | PM.OP ---
Operative Report Date of procedure: April 15, 2021 Pre-op diagnosis: Acute on chronic renal failure requiring potential long-term dialysis Post-op diagnosis: same Procedure done: 1. Exchange of temporary dialysis catheter to tunneled 16 Frisian 23 cm long AshSplit hemodialysis catheter 2. Fluoroscopic guidance and interpretation for placement of catheter Pathology: none sent Surgeon: Sergo Limon Anesthesia: MAC Estimated blood loss (mL): 100 Condition: stable Disposition: PACU Procedure: The patient was taken to the operating room and placed under MAC after IV antibiotics had been administered in a Trendelenburg position. The right chest was prepped and draped in a sterile manner and catheter . The site for the tunnel catheter was marked on the skin under fluoroscopy. The existing temporary catheter was cut with scissors and guidewire was passed through one of the channels in the distal portion of the divided catheter and the catheter was removed. Serial dilators were passed over the guidewire under fluoroscopy. A new 23 cm long 16 Frisian Cruz Split catheter was passed through the subcutaneous tissue on the right chest and exited through the incision on the right neck. Dilator sheath was passed over the guidewire and the inner sheath and guidewire was removed and the distal end of the catheter was introduced into the internal jugular vein as the peel-away sheath was removed. Unfortunately the peel-away sheath tore and I was unable to advance the catheter tip, resulting in blood loss and therefore I reintroduced the inner dilator. A guidewire was passed under fluoroscopy into the dilator sheath and the dilator and partially torn peel-away sheath was removed and a new dilator sheath was passed over the guidewire. The inner dilator and sheath was again removed and the tunneled hemodialysis catheter tip was passed through the sheath as it was removed. Fluoroscopy confirmed good position of the tip of the catheter. The skin incision in the neck was closed using 4-0 Monocryl and surgical glue. The catheter sutured to the skin using 3-0 Prolene. Sterile dressings were applied.
--- NOTE | 2021-04-15 14:38 | PC.NURSE ---
pressure dressing applied to dialysis catheter site.
[2021-04-15] MEDS: heparin 5,000 unit/mL INJ 1 mL 5000 UNIT SUBCUT ×2 (14:55→21:02)
[2021-04-15] MEDS: hyDRALAzine 20 mg/mL INJ 1 mL 5 MG IVP (15:00)
[2021-04-15] MEDS: insulin lispro 100 unit/1 mL SUBCUT ×2 (17:16→21:02)
[2021-04-15 17:19] LABS: Glucose Point of Care 167 mg/dL (70-110)
--- NOTE | 2021-04-15 17:21 | P.PN_ITS ---
Subjective Subjective: Patient seen lying in bed with in the room. Expecting to have a permanent dialysis catheter placed today and it had not yet been done. Doing a bit better today after 4 L taken off yesterday. Vitals/I&O/Wt Last Vital Signs Temp 98.1 F 04/15/21 16:30 Pulse 108 H 04/15/21 16:30 Resp 20 H 04/15/21 16:30 BP 160/74 04/15/21 16:30 Pulse Ox 94 04/15/21 16:30 04/15/21 04/15/21 04/15/21 06:59 14:59 22:59 Intake Total 200 / 694 100 / 100 Output Total 400 / 5154 100 / 100 760 / 860 Balance -200 / -4460 0 / 0 -760 / -760 Weight last 48 hrs Weight 125.6 kg Weight 126.6 kg Weight 131.406 kg Physical Exam Narrative: Patient in mild distress due to edema; however, looks a bit better today Cardiac: Normal S1-S2 without murmurs clicks gallops or rubs Lungs: Clear to auscultation and anteriorly Abdomen: Distended but soft to palpation no rebound rigidity or guarding nontender. Extremities: +4 pitting edema to groin Neurologic: Alert oriented to person place time and situation Urinary Catheter Management: Martinez: Cath Placed During This Visit: yes, but has since been removed by the nurse Reason for Continuing Indwelling Catheter: Other Urinary Catheter Date of Insertion: 04/06/21 Urinary Catheter Time of Insertion: 09:52 Date Urinary Catheter Removed: 04/04/21 Time Urinary Catheter Discontinued: 09:00 Data : 04/14/21 02:23 04/15/21 04:56 A&P Assessment and plan (1) Anemia: Status: Acute (2) Diarrhea: Status: Acute (3) Hypoglycemia: Status: Acute (4) S/P BKA (below knee amputation): Status: Acute (5) Foot osteomyelitis, left: Status: Acute (6) Diabetic peripheral neuropathy associated with type 2 diabetes mellitus: Status: Acute (7) Contrast dye induced nephropathy: Status: Acute (8) Diabetes: Status: Acute (9) Essential hypertension: Status: Acute (10) Hyperosmolar hyperglycemic state (HHS): Status: Acute Plan Day 20 in the hospital Contrast-induced nephropathy, dialysis with UF MWF Should have permacath today. Acute normocytic anemia: Hemoglobin stable 8.9 status post 3 units PRBC 1 bag of iron was given as well Resistant hypervolemia, has not improved significantly with dialysis and use of albumin Emphysematous osteomyelitis status post left BKA 04/[address] which will be removed 2 weeks after the surgery To follow-up with Dr. Limon Will need home health services at discharge for PT if patient wants Hyperglycemia His blood sugar is very labile,currently on lantus and HL Diarrhea: Improved no signs of C. difficile Semisolid stool UTI: Resolved DVT prophylaxis currently on hold Consistent carb diet Full code CM unable to obtain chair time for HD. Plan for HD in am and then d/c. Should b e able to get chair time tomorrow. Attestations Medical Necessity Statement*: Requires hemodialysis and unable to obtain chair time. Coding Level of Care Code Acute Psychological Science Professor for Chg Fwd Diagnoses Anemia D64.9 Diarrhea R19.7 Hypoglycemia E16.2 S/P BKA (below knee amputation) Z89.519 Foot osteomyelitis, left M86.9 Diabetic peripheral neuropathy associated with type 2 diabetes mellitus E11.42 Contrast dye induced nephropathy N14.1; T50.8X5A Diabetes E11.9 Essential hypertension I10 Hyperosmolar hyperglycemic state (HHS) E11.00; E11.65
[2021-04-15 20:29] LABS: Glucose Point of Care 223 mg/dL (70-110)
[2021-04-15] MEDS: atorvastatin 40 mg Tablet 20 MG PO (21:01)
[2021-04-16] VITALS (11 sets, daily range): BP systolic 129–188; BP diastolic 78–104; PULSE 88–111; RESP 16–18; TEMP 36.7–37.3; O2SAT 94–97
[2021-04-16 06:07] LABS: Albumin Level 2.9 g/dL (3.5-5.2); Anion Gap 17.7 (5-19); Blood Urea Nitrogen 65 mg/dL (6-20); Calcium 8.4 mg/dL (8.5-10.5); Carbon Dioxide 23 mmol/L (22-29); Chloride 102 mmol/L (98-107); Glomerular Filtration Rate 15.5 mL/min (90-130); Glucose 93 mg/dL (65-115); Phosphorus 4.1 mg/dL (2.5-4.5); Potassium 4.7 mmol/L (3.5-5.1); Sodium 138 mmol/L (136-145)
[2021-04-16 06:33] LABS: Glucose Point of Care 84 mg/dL (70-110)
[2021-04-16] MEDS: heparin 5,000 unit/mL INJ 1 mL 5000 UNIT SUBCUT ×3 (06:34→20:54)
[2021-04-16] MEDS: doxycycline 100 mg Tablet PO (08:22)
[2021-04-16] MEDS: b-complex-vitamin c Tablet 1 EACH PO (08:22)
[2021-04-16] MEDS: metoprolol tartrate 25 mg Tablet 12.5 MG PO ×2 (08:22→20:53)
[2021-04-16] MEDS: amlodipine 5 mg Tablet PO (08:22)
[2021-04-16] MEDS: aspirin 81 mg EC Tablet PO (08:22)
[2021-04-16] MEDS: amoxicillin-clav 875-125 mg Tablet 1 TAB PO (08:22)
[2021-04-16] MEDS: oxybutynin 5 mg Tablet PO ×3 (08:22→20:53)
[2021-04-16] MEDS: allopurinol 100 mg Tablet PO (08:22)
[2021-04-16] MEDS: pantoprazole DR 40 mg Tablet PO ×2 (08:22→20:53)
[2021-04-16] MEDS: insulin glargine 100 units/1 mL 20 UNIT SUBCUT (08:23)
--- NOTE | 2021-04-16 09:39 | PM.PN ---
Subjective Subjective: Mr. Kruger feels okay today, keen to go home. Dialysis pending for today. Permacath in. Outpatient dialysis being set up. Good urine output. He still has significant fluid overload. Urine remains dark, tea colored. Medications: Reviewed: Yes Medication Review Details: Current Medications Acetaminophen (Acetaminophen 325 Mg Tablet) 650 mg PO Q6H PRN PRN Reason: Mild/Mod Pain Or Temp >/= 101 Last Admin: 04/09/21 22:31 Dose: 650 mg Documented by: Aspirin (Aspirin 81 Mg Ec Tablet) 81 mg PO DAILY [facility] Last Admin: 04/09/21 08:06 Dose: 81 mg Documented by: Atorvastatin Calcium (Atorvastatin 40 Mg Tablet) 20 mg PO BEDTIME [facility] Last Admin: 04/09/21 20:26 Dose: 20 mg Documented by: Bisacodyl (Bisacodyl 5 Mg Tablet) 10 mg PO DAILY PRN; Protocol PRN Reason: Constipation (see protocol) Lidocaine HCl 1.667 ml/Diphenhydramine HCl 4.165 mg/Al Hydrox/Mg Hydrox/Simethicone 1.667 ml 0 ml MUCOUS MEM Q4H PRN PRN Reason: MOUTH PAIN Last Admin: 04/06/21 17:33 Dose: 7.5 ml Documented by: Dextrose (Dextrose 50% Syringe 50 Ml) 25 ml IVP ONCE PRN; Protocol PRN Reason: hypoglycemia protocol Dextrose (Dextrose 50% Syringe 50 Ml) 50 ml IVP PRN PRN; Protocol PRN Reason: hypoglycemia protocol Ergocalciferol (Ergocalciferol (Vitamin D2) 50,000 Unit Capsule) 50,000 unit PO Q7D [facility] Last Admin: 04/10/21 08:24 Dose: 50,000 unit Documented by: Glucagon (Glucagon 1 Mg/Ml Inj 1 Ml) 1 mg IM ONCE PRN; Protocol PRN Reason: Adult Acute Hypoglycemia Prot Heparin Sodium (Porcine) (Heparin 5,000 Unit/Ml Inj 1 Ml) 5,000 unit SUBCUT Q8H [facility] Last Admin: 04/08/21 13:23 Dose: 5,000 unit Documented by: Hydralazine HCl (Hydralazine 20 Mg/Ml Inj 1 Ml) 10 mg IVP Q4H PRN PRN Reason: if sbp>180 Dextrose (D5w) 500 mls @ 100 mls/hr IV ONCE PRN; Protocol PRN Reason: Adult Acute Hypoglycemia Prot Linezolid (Zyvox Premix) 600 mg in 300 mls @ 300 mls/hr IV Q12H [facility]; Protocol Last Infusion: 04/10/21 01:49 Dose: Infused Documented by: Piperacillin Sod/Tazobactam (Sod 3.375 gm/ Sodium Chloride) 50 mls @ 12.5 mls/hr IV Q8H [facility]; Protocol Last Admin: 04/10/21 04:34 Dose: 12.5 mls/hr Documented by: Albumin Human (Albumin) 25 gm in 100 mls @ 60 mls/hr IV Q8H [facility] Last Admin: 04/10/21 08:24 Dose: 60 mls/hr Documented by: Albumin Human (Albumin) 12.5 gm in 50 mls @ 60 mls/hr IV PRN PRN PRN Reason: Hypotension and/or symptomatic Insulin Glargine (Insulin Glargine 100 Units/1 Ml) 10 unit SUBCUT BID@0900,2100 [facility] Last Admin: 04/10/21 08:23 Dose: 10 unit Documented by: Insulin Human Lispro (Insulin Lispro 100 Unit/1 Ml) 0 unit SUBCUT WM&BEDTIME [facility]; Protocol Last Admin: 04/10/21 08:23 Dose: 6 unit Documented by: Metoclopramide HCl (Metoclopramide 5 Mg/Ml Sdv 2 Ml) 10 mg IVP Q6H PRN PRN Reason: NAUSEA AND VOMITING Last Admin: 03/30/21 11:12 Dose: 10 mg Documented by: Metoprolol Tartrate (Metoprolol Tartrate 25 Mg Tablet) 12.5 mg PO BID@0900,2100 [facility] Last Admin: 04/10/21 08:24 Dose: 12.5 mg Documented by: Multivitamins (W-Xonihmq-Hmkaekw C Tablet) 1 each PO DAILY [facility] Last Admin: 04/10/21 08:24 Dose: 1 each Documented by: Ondansetron HCl (Ondansetron 2 Mg/Ml Sdv 2 Ml) 4 mg IVP Q8H PRN PRN Reason: vomiting, or N/V if npo Last Admin: 04/06/21 14:39 Dose: 4 mg Documented by: Oxybutynin Chloride (Oxybutynin 5 Mg Tablet) 5 mg PO TID [facility] Last Admin: 04/10/21 08:24 Dose: 5 mg Documented by: Pantoprazole Sodium (Pantoprazole 40 Mg Sdv) 40 mg IVP Q12H [facility] Last Admin: 04/10/21 08:25 Dose: 40 mg Documented by: Vitals/I&O/Wt Last Vital Signs Temp 99.2 F 04/16/21 04:00 Pulse 103 H 04/16/21 04:00 Resp 17 04/16/21 04:00 BP 173/87 04/16/21 04:00 Pulse Ox 96 04/16/21 04:00 04/15/21 04/16/21 04/16/21 22:59 06:59 14:59 Intake Total 540 / 640 480 / 1120 Output Total 760 / 860 575 / 1435 Balance -220 / -220 -95 / -315 Weight last 48 hrs Weight 125.282 kg Weight 125.6 kg Weight 126.6 kg Physical Exam Narrative: Constitutional: Awake, comfortable HEENT: Wet mucosa, no jvp, non icteric Lungs: Bilaterally clear without discernible wheeze or rales in all lung zones CVS: S1 S2, no murmurs Abdo: Soft, BS ok Ext 4: 2-3+ edema, peripheral perfusion with no cyanosis Neurological: Grossly non-focal Urinary Catheter Management: Martinez: Cath Placed During This Visit: yes, but has since been removed by the nurse Reason for Continuing Indwelling Catheter: Decision to DC Catheter Urinary Catheter Date of Insertion: 04/06/21 Urinary Catheter Time of Insertion: 09:52 Date Urinary Catheter Removed: 04/15/21 Time Urinary Catheter Discontinued: 18:32 Data : 04/14/21 02:23 04/16/21 05:26 A&P Assessment and plan (1) Acute renal failure superimposed on stage 3b chronic kidney disease: 1. Acute kidney injury Differential diagnosis includes contrast nephropathy, infection mediated or myelopathy, acute interstitial nephritis. Permacath in Dialysis pending for today Close monitoring for recovery > d/w to monitor closely as an outpatient Avoid usual nephrotoxic agents Dose medication for GFR less than 15 2. Chemistry minor aberration 3. 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 Hemodynamics Blood pressure with some fluctuation 210-170 systolic, monitor for now 5. Dispo ok for DC from my perspective, expected at dialysis on Wednesday morning Kristofer Noble MD Nephrology [phone] Patient seen and examined via telemedicine, with the assistance of the bedside RN > 25 min spent in evaluation and mgmt of patient Status: Acute Attestations Medical Necessity Statement*: Eval for ALESIA Coding Level of Care Code Acute Sponge Buffer for Chg Fwd Diagnoses Acute renal failure superimposed on stage 3b chronic kidney disease N17.9; N18.32
[2021-04-16] MEDS: insulin lispro 100 unit/1 mL SUBCUT ×2 (12:41→21:02)
--- NOTE | 2021-04-16 12:53 | PM.PN ---
Subjective Subjective: Patient denies any significant neck pain or left leg pain Vitals/I&O/Wt Last Vital Signs Temp 98.5 F 04/16/21 08:00 Pulse 105 H 04/16/21 12:00 Resp 18 04/16/21 12:00 BP 186/89 04/16/21 12:00 Pulse Ox 96 04/16/21 12:00 04/15/21 04/16/21 04/16/21 22:59 06:59 14:59 Intake Total 540 / 1120 480 / 1120 480 / 480 Output Total 760 / 1435 575 / 1435 Balance -220 / -315 -95 / -315 480 / 480 Weight last 48 hrs Weight 276 lb 3.2 oz Weight 276 lb 14.4 oz Weight 279 lb 1.683 oz Physical Exam Narrative: Right neck: Dressings dry and intact Left BKA stump: Incision clean dry and intact, no significant cellulitis or swelling Urinary Catheter Management: Martinez: Cath Placed During This Visit: yes, but has since been removed by the nurse Reason for Continuing Indwelling Catheter: Decision to DC Catheter Urinary Catheter Date of Insertion: 04/06/21 Urinary Catheter Time of Insertion: 09:52 Date Urinary Catheter Removed: 04/15/21 Time Urinary Catheter Discontinued: 18:32 Data : 04/14/21 02:23 04/16/21 05:26 A&P Assessment and plan (1) S/P BKA (below knee amputation): Status post BKA for emphysematous osteomyelitis Daily dressing change with ABD, Kerlix, Sylvester wrap Knee immobilizer to prevent flexion contracture Continue PT Status: Acute (2) Acute renal failure superimposed on stage 3b chronic kidney disease: Status post tunneled dialysis catheter placement, doing well Discharge instructions have been placed in the chart Status: Acute Attestations Medical Necessity Statement*: As per primary Coding Level of Care Code Acute Medical Office Clerk for [facility] Fw Diagnoses S/P BKA (below knee amputation) Z89.519 Acute renal failure superimposed on stage 3b chronic kidney disease N17.9; N18.32
--- NOTE | 2021-04-16 12:57 | PC.NURSE ---
patient taken to dialysis
--- NOTE | 2021-04-16 14:24 | PM.PN ---
Subjective Subjective: We have struggling to find him chair time for dialysis on Wednesday, [facility] did not accept his insurance, as soon as we get chair time for his dialysis I will discharge him from the hospital, I have already sent all of his prescription to his designated pharmacy Vitals/I&O/Wt Last Vital Signs Temp 98.5 F 04/16/21 08:00 Pulse 105 H 04/16/21 12:00 Resp 18 04/16/21 12:00 BP 186/89 04/16/21 12:00 Pulse Ox 96 04/16/21 12:00 04/15/21 04/16/21 04/16/21 22:59 06:59 14:59 Intake Total 540 / 640 480 / 1120 480 / 480 Output Total 760 / 860 575 / 1435 Balance -220 / -220 -95 / -315 480 / 480 Weight last 48 hrs Weight 125.282 kg Weight 125.6 kg Weight 126.6 kg Physical Exam Narrative: Anasarca Cardiac: Normal S1-S2 without murmurs clicks gallops or rubs Lungs: Clear to auscultation and anteriorly Abdomen: Distended but soft to palpation no rebound rigidity or guarding nontender. Extremities: +3 pitting edema to groin Neurologic: Alert oriented to person place time and situation Saturating well on room air Appropriate mood and affect Right arm PICC line Urinary Catheter Management: Martinez: Cath Placed During This Visit: yes, but has since been removed by the nurse Reason for Continuing Indwelling Catheter: Decision to DC Catheter Urinary Catheter Date of Insertion: 04/06/21 Urinary Catheter Time of Insertion: 09:52 Date Urinary Catheter Removed: 04/15/21 Time Urinary Catheter Discontinued: 18:32 Data : 04/14/21 02:23 04/16/21 05:26 A&P Assessment and plan (1) Anemia: Status: Acute (2) Diarrhea: Status: Acute (3) Hypoglycemia: Status: Acute (4) S/P BKA (below knee amputation): Status: Acute (5) Diabetic peripheral neuropathy associated with type 2 diabetes mellitus: Status: Acute (6) Contrast dye induced nephropathy: Status: Acute (7) Hyperosmolar hyperglycemic state (HHS): Status: Acute (8) Peripheral arterial disease: Status: Acute Plan Patient is awaiting for chair time for dialysis on Wednesday, otherwise he can be discharged home safely I have already prescribed all of his medications, follow appointments made We will check CBC and BMP for tomorrow, case advocate Liliane working on his case Status post 3 unit PRBC Discontinue Augmentin and doxycycline, decrease Lantus as he was hypoglycemic in the morning Renal dialysis diet Attestations Medical Necessity Statement*: DC as soon as we get chair time for his dialysis Time Spent in Patient Care: 15 minutes Coding Level of Care Code Acute Air Defense Artillery Officer for g Fwd Diagnoses Anemia D64.9 Diarrhea R19.7 Hypoglycemia E16.2 S/P BKA (below knee amputation) Z89.519 Diabetic peripheral neuropathy associated with type 2 diabetes mellitus E11.42 Contrast dye induced nephropathy N14.1; T50.8X5A Hyperosmolar hyperglycemic state (HHS) E11.00; E11.65 Peripheral arterial disease I73.9
[2021-04-16 16:57] LABS: Glucose Point of Care 122 mg/dL (70-110)
[2021-04-16] MEDS: oxyCODONE-APAP 5-325 mg Tablet 1 TAB PO (20:52)
[2021-04-16] MEDS: insulin glargine 100 units/1 mL 18 UNIT SUBCUT (21:01)
[2021-04-16 21:17] LABS: Glucose Point of Care 241 mg/dL (70-110)
[2021-04-16] MEDS: morphine 4 mg/mL SDV 1 mL 1 MG IVP (22:58)
[2021-04-17] VITALS (10 sets, daily range): BP systolic 159–178; BP diastolic 69–95; PULSE 99–108; RESP 16–22; TEMP 36.6–37.1; O2SAT 90–96
[2021-04-17 05:23] LABS: Eosinophils # 0.1 10^3/uL (0.0-0.8); Hematocrit 25.3 % (42.0-52.0); Hemoglobin 7.8 g/dL (11.7-16.6); Lymphocytes # 0.7 10^3/uL (0.8-4.8); Lymphocytes % 10.8 %; Mean Corpuscular HGB Conc 30.8 g/dL (30.0-36.0); Mean Corpuscular Hemoglobin 27.5 pg (28.0-34.0); Mean Corpuscular Volume 89.1 fl (80-94); Mean Platelet Volume 8.4 fL (7.4-10.4); Monocytes # 0.6 10^3/uL (0.2-0.9); Monocytes % 9.9 %; Neutrophils # 4.85 10^3/uL (1.8-7.7); Neutrophils % 76.4 %; Nucleated Red Blood Cells % 0 %; Platelet Count 179 10^3/cmm (130-400); Red Blood Count 2.84 10^6/uL (4.1-5.3); Red Cell Distribution Width 14.6 % (12.1-15.1); White Blood Count 6.4 10^3/uL (4.0-10.0)
[2021-04-17 05:47] LABS: Blood Urea Nitrogen 42 mg/dL (6-20); Calcium 7.4 mg/dL (8.5-10.5); Carbon Dioxide 27 mmol/L (22-29); Chloride 99 mmol/L (98-107); Glomerular Filtration Rate 21.6 mL/min (90-130); Glucose 220 mg/dL (65-115); Osmolality Calculated 297 mOsm/kg (285-295); Sodium 135 mmol/L (136-145)
[2021-04-17 06:44] LABS: Glucose Point of Care 226 mg/dL (70-110)
[2021-04-17] MEDS: metoprolol tartrate 25 mg Tablet 12.5 MG PO ×2 (09:10→21:07)
[2021-04-17] MEDS: b-complex-vitamin c Tablet 1 EACH PO (09:10)
[2021-04-17] MEDS: aspirin 81 mg EC Tablet PO (09:11)
[2021-04-17] MEDS: pantoprazole DR 40 mg Tablet PO ×2 (09:11→21:07)
[2021-04-17] MEDS: amlodipine 5 mg Tablet PO (09:11)
[2021-04-17] MEDS: allopurinol 100 mg Tablet PO (09:11)
[2021-04-17] MEDS: oxybutynin 5 mg Tablet PO ×3 (09:11→21:08)
[2021-04-17] MEDS: insulin glargine 100 units/1 mL 18 UNIT SUBCUT ×2 (09:11→21:08)
[2021-04-17] MEDS: insulin lispro 100 unit/1 mL SUBCUT ×4 (09:11→21:08)
[2021-04-17] MEDS: ergocalciferol (vitamin D2) 50,000 Unit Capsule 50000 UNIT PO (11:15)
--- NOTE | 2021-04-17 11:29 | P.PN_ITS ---
Subjective Subjective: No issues overnight, possible dialysis today, keen to go home Medications: Reviewed: Yes Vitals/I&O/Wt Last Vital Signs Temp 98.4 F 04/17/21 08:00 Pulse 101 H 04/17/21 08:57 Resp 16 04/17/21 08:57 BP 174/69 04/17/21 08:00 Pulse Ox 95 04/17/21 08:57 04/16/21 04/17/21 04/17/21 22:59 06:59 14:59 Intake Total 240 / 1420 700 / 1420 240 / 240 Output Total 4026 / 4576 550 / 4576 600 / 600 Balance -3786 / -3156 150 / -3156 -360 / -360 Weight last 48 hrs Weight 269 lb 8 oz Weight 269 lb 13.533 oz Weight 276 lb 3.2 oz Physical Exam Narrative: Neck : Right IJ HD catheter in place Left BKA: dressings dry and intact Urinary Catheter Management: Martinez: Cath Placed During This Visit: yes, but has since been removed by the nurse Reason for Continuing Indwelling Catheter: Decision to DC Catheter Urinary Catheter Date of Insertion: 04/06/21 Urinary Catheter Time of Insertion: 09:52 Date Urinary Catheter Removed: 04/15/21 Time Urinary Catheter Discontinued: 18:32 Data : 04/17/21 05:14 04/17/21 05:14 A&P Assessment and plan (1) S/P BKA (below knee amputation): Status post BKA for emphysematous osteomyelitis, doing well Daily dressing change with ABD, Kerlix, Sylvester wrap Knee immobilizer to prevent flexion contracture Continue PT Status: Acute (2) Acute renal failure superimposed on stage 3b chronic kidney disease: Status post tunneled dialysis catheter placement, doing well Discharge instructions have been placed in the chart Status: Acute Attestations Medical Necessity Statement*: as per primary Coding Level of Care Code Acute Postdoctoral Research Associate for [facility] Fw Diagnoses S/P BKA (below knee amputation) Z89.519 Acute renal failure superimposed on stage 3b chronic kidney disease N17.9; N18.32
--- NOTE | 2021-04-17 11:42 | P.PN_ITS ---
Subjective Subjective: Alli feels well today with no acute complaints. He still has significant swelling in his scrotum, lower extremities and lower abdomen. Breathing comfortably. Making urine, however, having some difficulty fully emptying the bladder given the swelling. Hemodynamics noted, blood pressure elevated. No uremic symptoms. Looking forward to discharge. Medications: Reviewed: Yes Medication Review Details: Current Medications Acetaminophen (Acetaminophen 325 Mg Tablet) 650 mg PO Q6H PRN PRN Reason: Mild/Mod Pain Or Temp >/= 101 Last Admin: 04/09/21 22:31 Dose: 650 mg Documented by: Aspirin (Aspirin 81 Mg Ec Tablet) 81 mg PO DAILY [facility] Last Admin: 04/09/21 08:06 Dose: 81 mg Documented by: Atorvastatin Calcium (Atorvastatin 40 Mg Tablet) 20 mg PO BEDTIME [facility] Last Admin: 04/09/21 20:26 Dose: 20 mg Documented by: Bisacodyl (Bisacodyl 5 Mg Tablet) 10 mg PO DAILY [facility]; Protocol PRN Reason: Constipation (see protocol) Lidocaine HCl 1.667 ml/Diphenhydramine HCl 4.165 mg/Al Hydrox/Mg Hydrox/Simethicone 1.667 ml 0 ml MUCOUS MEM Q4H PRN PRN Reason: MOUTH PAIN Last Admin: 04/06/21 17:33 Dose: 7.5 ml Documented by: Dextrose (Dextrose 50% Syringe 50 Ml) 25 ml IVP ONCE PRN; Protocol PRN Reason: hypoglycemia protocol Dextrose (Dextrose 50% Syringe 50 Ml) 50 ml IVP PRN PRN; Protocol PRN Reason: hypoglycemia protocol Ergocalciferol (Ergocalciferol (Vitamin D2) 50,000 Unit Capsule) 50,000 unit PO Q7D [facility] Last Admin: 04/10/21 08:24 Dose: 50,000 unit Documented by: Glucagon (Glucagon 1 Mg/Ml Inj 1 Ml) 1 mg IM ONCE PRN; Protocol PRN Reason: Adult Acute Hypoglycemia Prot Heparin Sodium (Porcine) (Heparin 5,000 Unit/Ml Inj 1 Ml) 5,000 unit SUBCUT Q8H [facility] Last Admin: 04/08/21 13:23 Dose: 5,000 unit Documented by: Hydralazine HCl (Hydralazine 20 Mg/Ml Inj 1 Ml) 10 mg IVP Q4H PRN PRN Reason: if sbp>180 Dextrose (D5w) 500 mls @ 100 mls/hr IV ONCE PRN; Protocol PRN Reason: Adult Acute Hypoglycemia Prot Linezolid (Zyvox Premix) 600 mg in 300 mls @ 300 mls/hr IV Q12H [facility]; Protocol Last Infusion: 04/10/21 01:49 Dose: Infused Documented by: Piperacillin Sod/Tazobactam (Sod 3.375 gm/ Sodium Chloride) 50 mls @ 12.5 mls/hr IV Q8H [facility]; Protocol Last Admin: 04/10/21 04:34 Dose: 12.5 mls/hr Documented by: Albumin Human (Albumin) 25 gm in 100 mls @ 60 mls/hr IV Q8H [facility] Last Admin: 04/10/21 08:24 Dose: 60 mls/hr Documented by: Albumin Human (Albumin) 12.5 gm in 50 mls @ 60 mls/hr IV PRN PRN PRN Reason: Hypotension and/or symptomatic Insulin Glargine (Insulin Glargine 100 Units/1 Ml) 10 unit SUBCUT BID@0900,2100 [facility] Last Admin: 04/10/21 08:23 Dose: 10 unit Documented by: Insulin Human Lispro (Insulin Lispro 100 Unit/1 Ml) 0 unit SUBCUT WM&BEDTIME [facility]; Protocol Last Admin: 04/10/21 08:23 Dose: 6 unit Documented by: Metoclopramide HCl (Metoclopramide 5 Mg/Ml Sdv 2 Ml) 10 mg IVP Q6H PRN PRN Reason: NAUSEA AND VOMITING Last Admin: 03/30/21 11:12 Dose: 10 mg Documented by: Metoprolol Tartrate (Metoprolol Tartrate 25 Mg Tablet) 12.5 mg PO BID@0900,2100 [facility] Last Admin: 04/10/21 08:24 Dose: 12.5 mg Documented by: Multivitamins (G-Mkzlgup-Ornqxmz C Tablet) 1 each PO DAILY [facility] Last Admin: 04/10/21 08:24 Dose: 1 each Documented by: Ondansetron HCl (Ondansetron 2 Mg/Ml Sdv 2 Ml) 4 mg IVP Q8H PRN PRN Reason: vomiting, or N/V if npo Last Admin: 04/06/21 14:39 Dose: 4 mg Documented by: Oxybutynin Chloride (Oxybutynin 5 Mg Tablet) 5 mg PO TID [facility] Last Admin: 04/10/21 08:24 Dose: 5 mg Documented by: Pantoprazole Sodium (Pantoprazole 40 Mg Sdv) 40 mg IVP Q12H [facility] Last Admin: 04/10/21 08:25 Dose: 40 mg Documented by: Vitals/I&O/Wt Last Vital Signs Temp 98.4 F 04/17/21 08:00 Pulse 101 H 04/17/21 08:57 Resp 16 04/17/21 08:57 BP 174/69 04/17/21 08:00 Pulse Ox 95 04/17/21 08:57 04/16/21 04/17/21 04/17/21 22:59 06:59 14:59 Intake Total 240 / 720 700 / 1420 240 / 240 Output Total 4026 / 4026 550 / 4576 600 / 600 Balance -3786 / -3306 150 / -3156 -360 / -360 Weight last 48 hrs Weight 122.243 kg Weight 122.4 kg Weight 125.282 kg Physical Exam Narrative: Constitutional: Awake, comfortable HEENT: Wet mucosa, no jvp, non icteric Lungs: Bilaterally clear without discernible wheeze or rales in all lung zones CVS: S1 S2, no murmurs Abdo: Soft, BS ok Ext 4: 2-3+ edema, peripheral perfusion with no cyanosis Neurological: Grossly non-focal Urinary Catheter Management: Martinez: Cath Placed During This Visit: yes, but has since been removed by the nurse Reason for Continuing Indwelling Catheter: Decision to DC Catheter Urinary Catheter Date of Insertion: 04/06/21 Urinary Catheter Time of Insertion: 09:52 Date Urinary Catheter Removed: 04/15/21 Time Urinary Catheter Discontinued: 18:32 Data : 04/17/21 05:14 04/17/21 05:14 A&P Assessment and plan (1) Acute renal failure superimposed on stage 3b chronic kidney disease: 1. Acute kidney injury Differential diagnosis includes contrast nephropathy, infection mediated or myelopathy, acute interstitial nephritis. Permacath in Plan for dialysis today, 3 L of ultrafiltration. Next dialysis session tomorrow if he remains in the hospital. Outpatient team need to monitor closely for recovery and bring him off dialysis as soon as possible. Avoid usual nephrotoxic agents Dose medication for GFR less than 15 2. Chemistry minor aberration 3. 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 Hemodynamics Elevated but this should come down with additional ultrafiltration today. 5. Dispo ok for DC from my perspective Kristofer Noble MD Nephrology [phone] Patient seen and examined via telemedicine, with the assistance of the bedside RN > 25 min spent in evaluation and mgmt of patient Status: Acute Attestations Medical Necessity Statement*: eval for ALESIA Coding Level of Care Code Acute Team Lead for Chg Fwd Diagnoses Acute renal failure superimposed on stage 3b chronic kidney disease N17.9; N18.32
--- NOTE | 2021-04-17 11:50 | PC.NURSE ---
Hemodialysis dressing changed by third shift lieutenant nurse during bedside report.
--- NOTE | 2021-04-17 12:25 | PC.NURSE ---
Dr. Metzger notified of bleeding from HD site. 1300 heparin held d/t bleeding from HD site.
--- NOTE | 2021-04-17 14:17 | PM.PN ---
Subjective Subjective: We are still waiting on finding appropriate facility to provide him chair time for dialysis and patient both are very anxious and getting a bit frustrated with the waiting at the end The concerns were addressed and acknowledged I am working with case management to get him care time as soon as possible Vitals/I&O/Wt Last Vital Signs Temp 98.4 F 04/17/21 12:00 Pulse 100 04/17/21 12:00 Resp 16 04/17/21 12:00 BP 163/85 04/17/21 12:00 Pulse Ox 90 04/17/21 12:00 04/16/21 04/17/21 04/17/21 22:59 06:59 14:59 Intake Total 240 / 720 700 / 1420 480 / 480 Output Total 4026 / 4026 550 / 4576 600 / 600 Balance -3786 / -3306 150 / -3156 -120 / -120 Weight last 48 hrs Weight 122.243 kg Weight 122.4 kg Weight 125.282 kg Physical Exam Narrative: Patient sitting in a chair today Edema has not significantly improved, scrotal edema still present Urine retention today Martinez catheter to be placed Awake and alert Breathing well on room air S1, S2 Distended abdomen No signs of peritonitis No audible stridor or wheezing Urinary Catheter Management: Martinez: Cath Placed During This Visit: yes, but has since been removed by the nurse Reason for Continuing Indwelling Catheter: Decision to DC Catheter Urinary Catheter Date of Insertion: 04/06/21 Urinary Catheter Time of Insertion: 09:52 Date Urinary Catheter Removed: 04/15/21 Time Urinary Catheter Discontinued: 18:32 Data : 04/17/21 05:14 04/17/21 05:14 A&P Assessment and plan (1) Anemia: Status: Acute (2) Diarrhea: Status: Acute (3) Hypoglycemia: Status: Acute (4) S/P BKA (below knee amputation): Status: Acute (5) Foot osteomyelitis, left: Status: Acute (6) Diabetic peripheral neuropathy associated with type 2 diabetes mellitus: Status: Acute (7) Hyperosmolar hyperglycemic state (HHS): Status: Acute (8) Acute renal failure superimposed on stage 3b chronic kidney disease: Status: Acute (9) Contrast dye induced nephropathy: Status: Acute Plan Continue dialysis session as per the schedule, until we are able to find him chair time manager pool diligently working on his case I am not plan to change any of his medications today He has finished antibiotic course during his hospitalization Heparin for DVT For blood pressure increase amlodipine to 10 mg, currently on metoprolol, will add hydralazine 10 3 times daily Attestations Medical Necessity Statement*: Awaiting hemodialysis center acceptance Time Spent in Patient Care: 15 Coding Level of Care Code Acute Validation Software Facilitator for g Fwd Diagnoses Anemia D64.9 Diarrhea R19.7 Hypoglycemia E16.2 S/P BKA (below knee amputation) Z89.519 Foot osteomyelitis, left M86.9 Diabetic peripheral neuropathy associated with type 2 diabetes mellitus E11.42 Hyperosmolar hyperglycemic state (HHS) E11.00; E11.65 Acute renal failure superimposed on stage 3b chronic kidney disease N17.9; N18.32 Contrast dye induced nephropathy N14.1; T50.8X5A
[2021-04-17] MEDS: heparin, porcine 1,000 unit/mL INJ 10 mL 10000 UNIT HE (15:37)
[2021-04-17] MEDS: hyDRALAzine 25 mg Tablet PO ×2 (15:53→21:07)
[2021-04-17 16:59] LABS: Glucose Point of Care 151 mg/dL (70-110)
--- NOTE | 2021-04-17 17:02 | PC.HD ---
Dressing to tunnelled cath showed bloody drainage to most of dressing with runs of dried blood below dressing. Dressing indicates that it was changed at 0700 this morning, presumably due to bleeding. Liter IV bag placed on top of dressing at beginning of treatment to apply 2# pressure to site. By treatment end, dressing was saturated with bloody drainage and when dressing removed, clots were adhered to dressing. Site cleaned with ongoing drainage from insertion site noted. Folded 4x4 gauze applied under new Covaderm dressing to maintain some pressure at insertion site. Pt's nurse notified, says doctor is aware the site is oozing.
[2021-04-17 21:04] LABS: Glucose Point of Care 180 mg/dL (70-110)
[2021-04-17 21:55] LABS: Glucose Point of Care 277 mg/dL (70-110)
[2021-04-18] VITALS (10 sets, daily range): BP systolic 147–175; BP diastolic 70–88; PULSE 87–104; RESP 16–189; TEMP 36.6–37.3; O2SAT 90–96
[2021-04-18 06:20] LABS: Glucose Point of Care 212 mg/dL (70-110)
[2021-04-18 06:31] LABS: Basophils % 0.2 %; Eosinophils # 0.1 10^3/uL (0.0-0.8); Eosinophils % 2.1 %; Hematocrit 23.4 % (42.0-52.0); Hemoglobin 7.2 g/dL (11.7-16.6); Lymphocytes % 15.1 %; Mean Corpuscular HGB Conc 30.8 g/dL (30.0-36.0); Mean Corpuscular Hemoglobin 27.3 pg (28.0-34.0); Mean Corpuscular Volume 88.6 fl (80-94); Mean Platelet Volume 9.1 fL (7.4-10.4); Monocytes # 0.6 10^3/uL (0.2-0.9); Monocytes % 8.7 %; Neutrophils # 4.66 10^3/uL (1.8-7.7); Neutrophils % 73.4 %; Nucleated Red Blood Cells % 0 %; Platelet Count 171 10^3/cmm (130-400); Red Blood Count 2.64 10^6/uL (4.1-5.3); Red Cell Distribution Width 14.8 % (12.1-15.1); White Blood Count 6.3 10^3/uL (4.0-10.0)
[2021-04-18 06:54] LABS: Blood Urea Nitrogen 38 mg/dL (6-20); Calcium 7.6 mg/dL (8.5-10.5); Carbon Dioxide 27 mmol/L (22-29); Chloride 99 mmol/L (98-107); Glomerular Filtration Rate 18.1 mL/min (90-130); Glucose 216 mg/dL (65-115); Osmolality Calculated 296 mOsm/kg (285-295); Sodium 135 mmol/L (136-145)
[2021-04-18 06:59] LABS: Anion Gap 14.2 (5-19); Potassium 5.2 mmol/L (3.5-5.1)
[2021-04-18] MEDS: insulin lispro 100 unit/1 mL SUBCUT ×3 (08:20→20:55)
[2021-04-18] MEDS: metoprolol tartrate 25 mg Tablet 12.5 MG PO ×2 (08:21→20:52)
[2021-04-18] MEDS: oxybutynin 5 mg Tablet PO ×3 (08:21→20:52)
[2021-04-18] MEDS: b-complex-vitamin c Tablet 1 EACH PO (08:21)
[2021-04-18] MEDS: hyDRALAzine 25 mg Tablet PO ×3 (08:21→20:53)
[2021-04-18] MEDS: aspirin 81 mg EC Tablet PO (08:21)
[2021-04-18] MEDS: allopurinol 100 mg Tablet PO (08:21)
[2021-04-18] MEDS: amlodipine 10 mg Tablet PO (08:21)
[2021-04-18] MEDS: pantoprazole DR 40 mg Tablet PO ×2 (08:21→20:52)
[2021-04-18] MEDS: insulin glargine 100 units/1 mL 18 UNIT SUBCUT ×2 (08:24→20:55)
--- NOTE | 2021-04-18 10:13 | P.PN_ITS ---
Subjective Subjective: Alli feels well today. He still has significant scrotal edema, tolerated ultrafiltration well yesterday. Martinez catheter placed due to inability to pass his urine through his swollen scrotum. Keen to go home, still pending outpatient chair. Medications: Reviewed: Yes Medication Review Details: Current Medications Acetaminophen (Acetaminophen 325 Mg Tablet) 650 mg PO Q6H PRN PRN Reason: Mild/Mod Pain Or Temp >/= 101 Last Admin: 04/09/21 22:31 Dose: 650 mg Documented by: Aspirin (Aspirin 81 Mg Ec Tablet) 81 mg PO DAILY [facility] Last Admin: 04/09/21 08:06 Dose: 81 mg Documented by: Atorvastatin Calcium (Atorvastatin 40 Mg Tablet) 20 mg PO BEDTIME [facility] Last Admin: 04/09/21 20:26 Dose: 20 mg Documented by: Bisacodyl (Bisacodyl 5 Mg Tablet) 10 mg PO DAILY PRN; Protocol PRN Reason: Constipation (see protocol) Lidocaine HCl 1.667 ml/Diphenhydramine HCl 4.165 mg/Al Hydrox/Mg Hydrox/Simethicone 1.667 ml 0 ml MUCOUS MEM Q4H PRN PRN Reason: MOUTH PAIN Last Admin: 04/06/21 17:33 Dose: 7.5 ml Documented by: Dextrose (Dextrose 50% Syringe 50 Ml) 25 ml IVP ONCE PRN; Protocol PRN Reason: hypoglycemia protocol Dextrose (Dextrose 50% Syringe 50 Ml) 50 ml IVP PRN PRN; Protocol PRN Reason: hypoglycemia protocol Ergocalciferol (Ergocalciferol (Vitamin D2) 50,000 Unit Capsule) 50,000 unit PO Q7D [facility] Last Admin: 04/10/21 08:24 Dose: 50,000 unit Documented by: Glucagon (Glucagon 1 Mg/Ml Inj 1 Ml) 1 mg IM ONCE PRN; Protocol PRN Reason: Adult Acute Hypoglycemia Prot Heparin Sodium (Porcine) (Heparin 5,000 Unit/Ml Inj 1 Ml) 5,000 unit SUBCUT Q8H [facility] Last Admin: 04/08/21 13:23 Dose: 5,000 unit Documented by: Hydralazine HCl (Hydralazine 20 Mg/Ml Inj 1 Ml) 10 mg IVP Q4H PRN PRN Reason: if sbp>180 Dextrose (D5w) 500 mls @ 100 mls/hr IV ONCE PRN; Protocol PRN Reason: Adult Acute Hypoglycemia Prot Linezolid (Zyvox Premix) 600 mg in 300 mls @ 300 mls/hr IV Q12H [facility]; Protocol Last Infusion: 04/10/21 01:49 Dose: Infused Documented by: Piperacillin Sod/Tazobactam (Sod 3.375 gm/ Sodium Chloride) 50 mls @ 12.5 mls/hr IV Q8H [facility]; Protocol Last Admin: 04/10/21 04:34 Dose: 12.5 mls/hr Documented by: Albumin Human (Albumin) 25 gm in 100 mls @ 60 mls/hr IV Q8H [facility] Last Admin: 04/10/21 08:24 Dose: 60 mls/hr Documented by: Albumin Human (Albumin) 12.5 gm in 50 mls @ 60 mls/hr IV PRN PRN PRN Reason: Hypotension and/or symptomatic Insulin Glargine (Insulin Glargine 100 Units/1 Ml) 10 unit SUBCUT BID@0900,2100 [facility] Last Admin: 04/10/21 08:23 Dose: 10 unit Documented by: Insulin Human Lispro (Insulin Lispro 100 Unit/1 Ml) 0 unit SUBCUT WM&BEDTIME [facility]; Protocol Last Admin: 04/10/21 08:23 Dose: 6 unit Documented by: Metoclopramide HCl (Metoclopramide 5 Mg/Ml Sdv 2 Ml) 10 mg IVP Q6H PRN PRN Reason: NAUSEA AND VOMITING Last Admin: 03/30/21 11:12 Dose: 10 mg Documented by: Metoprolol Tartrate (Metoprolol Tartrate 25 Mg Tablet) 12.5 mg PO BID@0900,2100 [facility] Last Admin: 04/10/21 08:24 Dose: 12.5 mg Documented by: Multivitamins (X-Mjemerj-Ocefptn C Tablet) 1 each PO DAILY [facility] Last Admin: 04/10/21 08:24 Dose: 1 each Documented by: Ondansetron HCl (Ondansetron 2 Mg/Ml Sdv 2 Ml) 4 mg IVP Q8H PRN PRN Reason: vomiting, or N/V if npo Last Admin: 04/06/21 14:39 Dose: 4 mg Documented by: Oxybutynin Chloride (Oxybutynin 5 Mg Tablet) 5 mg PO TID [facility] Last Admin: 04/10/21 08:24 Dose: 5 mg Documented by: Pantoprazole Sodium (Pantoprazole 40 Mg Sdv) 40 mg IVP Q12H [facility] Last Admin: 04/10/21 08:25 Dose: 40 mg Documented by: Vitals/I&O/Wt Last Vital Signs Temp 97.9 F 04/18/21 08:00 Pulse 103 H 04/18/21 08:17 Resp 18 04/18/21 08:17 BP 170/88 04/18/21 08:00 Pulse Ox 95 04/18/21 08:17 04/17/21 04/18/21 04/18/21 22:59 06:59 14:59 Intake Total 660 / 1140 680 / 1820 Output Total 3301 / 3901 300 / 4201 Balance -2641 / -2761 380 / -2381 Weight last 48 hrs Weight 120.882 kg Weight 120.3 kg Weight 122.243 kg Weight 122.4 kg Physical Exam Narrative: Constitutional: Awake, comfortable HEENT: Wet mucosa, no jvp, non icteric Lungs: Bilaterally clear without discernible wheeze or rales in all lung zones CVS: S1 S2, no murmurs Abdo: Soft, BS ok Ext 4: 2-3+ edema, peripheral perfusion with no cyanosis Neurological: Grossly non-focal Urinary Catheter Management: Martinez: Cath Placed During This Visit: yes, but has since been removed by the nurse Reason for Continuing Indwelling Catheter: Acute Urinary Retention or Obstruction Urinary Catheter Date of Insertion: 04/17/21 Urinary Catheter Time of Insertion: 16:30 Date Urinary Catheter Removed: 04/15/21 Time Urinary Catheter Discontinued: 18:32 Data : 04/18/21 05:35 04/18/21 05:35 A&P Assessment and plan (1) Acute renal failure superimposed on stage 3b chronic kidney disease: 1. Acute kidney injury Differential diagnosis includes contrast nephropathy, infection mediated or myelopathy, acute interstitial nephritis. Permacath in Plan for dialysis today, 3 L of ultrafiltration. Outpatient team need to monitor closely for recovery and bring him off dialysis as soon as possible. Avoid usual nephrotoxic agents Dose medication for GFR less than 15 2. Chemistry minor aberration 3. 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 Hemodynamics Elevated but this should come down with additional ultrafiltration today. 5. Dispo ok for DC from my perspective Kristofer Noble MD Nephrology [phone] Patient seen and examined via telemedicine, with the assistance of the bedside RN > 25 min spent in evaluation and mgmt of patient Status: Acute Attestations Medical Necessity Statement*: eval for ALESIA Coding Level of Care Code Acute Cost Accounting Analyst for [facility] Fwd Diagnoses Acute renal failure superimposed on stage 3b chronic kidney disease N17.9; N18.32
[2021-04-18 11:01] LABS: Glucose Point of Care 226 mg/dL (70-110)
--- NOTE | 2021-04-18 11:12 | P.PN_ITS ---
Subjective Subjective: Low hemoglobin, will let nephrology put PRBC orders for dialysis Unfortunately patient is still waiting for chair time Martinez catheter was placed for urinary tension yesterday Vitals/I&O/Wt Last Vital Signs Temp 97.9 F 04/18/21 08:00 Pulse 103 H 04/18/21 08:17 Resp 18 04/18/21 08:17 BP 170/88 04/18/21 08:00 Pulse Ox 95 04/18/21 08:17 04/17/21 04/18/21 04/18/21 22:59 06:59 14:59 Intake Total 660 / 1140 680 / 1820 240 / 240 Output Total 3301 / 3901 300 / 4201 Balance -2641 / -2761 380 / -2381 240 / 240 Weight last 48 hrs Weight 120.882 kg Weight 120.3 kg Weight 122.243 kg Weight 122.4 kg Physical Exam Narrative: Edematous Anasarca Brown color urine in the bag Awake and alert Satting well on room air Nonfocal neuro exam Urinary Catheter Management: Martinez: Cath Placed During This Visit: yes, but has since been removed by the nurse Reason for Continuing Indwelling Catheter: Acute Urinary Retention or Obstruction Urinary Catheter Date of Insertion: 04/17/21 Urinary Catheter Time of Insertion: 16:30 Date Urinary Catheter Removed: 04/15/21 Time Urinary Catheter Discontinued: 18:32 Data : 04/18/21 05:35 04/18/21 05:35 A&P Assessment and plan (1) Anemia: Status: Acute (2) Diarrhea: Status: Acute (3) S/P BKA (below knee amputation): Status: Acute (4) Foot osteomyelitis, left: Status: Acute (5) Diabetic peripheral neuropathy associated with type 2 diabetes mellitus: Status: Acute (6) Acute renal failure superimposed on stage 3b chronic kidney disease: Status: Acute (7) Contrast dye induced nephropathy: Status: Acute Plan Patient is awaiting chair time Anemia of chronic disease hemoglobin 7.2 we will let nephrology put orders for PRBC transfusion during dialysis No active GI bleed Holding DVT prophylaxis We will discharge as soon as caser shoe parts update me regarding chair time Attestations Medical Necessity Statement*: 15 minutes Coding Level of Care Code Acute Customer Training Specialist for [facility] Fwd Diagnoses Anemia D64.9 Diarrhea R19.7 S/P BKA (below knee amputation) Z89.519 Foot osteomyelitis, left M86.9 Diabetic peripheral neuropathy associated with type 2 diabetes mellitus E11.42 Acute renal failure superimposed on stage 3b chronic kidney disease N17.9; N18.32 Contrast dye induced nephropathy N14.1; T50.8X5A
[2021-04-18] MEDS: heparin, porcine 1,000 unit/mL INJ 10 mL 10000 UNIT HE (18:52)
[2021-04-18 21:06] LABS: Glucose Point of Care 231 mg/dL (70-110)
[2021-04-18 21:28] LABS: Glucose Point of Care 159 mg/dL (70-110)
[2021-04-18 21:30] LABS: Glucose Point of Care 149 mg/dL (70-110)
[2021-04-19] VITALS (19 sets, daily range): BP systolic 148–185; BP diastolic 73–86; PULSE 82–97; RESP 12–20; TEMP 36.7–37.1; O2SAT 92–97
--- NOTE | 2021-04-19 06:32 | P.PN_ITS ---
Subjective Subjective: No new issues today. She feels fine. Dialysis went well yesterday. Improvement in his extremity edema. Urine output looks a little bit lower. Still waiting for a dialysis bed. Anemia is appreciated. Medications: Reviewed: Yes Medication Review Details: Current Medications Acetaminophen (Acetaminophen 325 Mg Tablet) 650 mg PO Q6H PRN PRN Reason: Mild/Mod Pain Or Temp >/= 101 Last Admin: 04/09/21 22:31 Dose: 650 mg Documented by: Aspirin (Aspirin 81 Mg Ec Tablet) 81 mg PO DAILY [facility] Last Admin: 04/09/21 08:06 Dose: 81 mg Documented by: Atorvastatin Calcium (Atorvastatin 40 Mg Tablet) 20 mg PO BEDTIME [facility] Last Admin: 04/09/21 20:26 Dose: 20 mg Documented by: Bisacodyl (Bisacodyl 5 Mg Tablet) 10 mg PO DAILY PRN; Protocol PRN Reason: Constipation (see protocol) Lidocaine HCl 1.667 ml/Diphenhydramine HCl 4.165 mg/Al Hydrox/Mg Hydrox/Simethicone 1.667 ml 0 ml MUCOUS MEM Q4H PRN PRN Reason: MOUTH PAIN Last Admin: 04/06/21 17:33 Dose: 7.5 ml Documented by: Dextrose (Dextrose 50% Syringe 50 Ml) 25 ml IVP ONCE PRN; Protocol PRN Reason: hypoglycemia protocol Dextrose (Dextrose 50% Syringe 50 Ml) 50 ml IVP PRN PRN; Protocol PRN Reason: hypoglycemia protocol Ergocalciferol (Ergocalciferol (Vitamin D2) 50,000 Unit Capsule) 50,000 unit PO Q7D [facility] Last Admin: 04/10/21 08:24 Dose: 50,000 unit Documented by: Glucagon (Glucagon 1 Mg/Ml Inj 1 Ml) 1 mg IM ONCE PRN; Protocol PRN Reason: Adult Acute Hypoglycemia Prot Heparin Sodium (Porcine) (Heparin 5,000 Unit/Ml Inj 1 Ml) 5,000 unit SUBCUT Q8H [facility] Last Admin: 04/08/21 13:23 Dose: 5,000 unit Documented by: Hydralazine HCl (Hydralazine 20 Mg/Ml Inj 1 Ml) 10 mg IVP Q4H PRN PRN Reason: if sbp>180 Dextrose (D5w) 500 mls @ 100 mls/hr IV ONCE PRN; Protocol PRN Reason: Adult Acute Hypoglycemia Prot Linezolid (Zyvox Premix) 600 mg in 300 mls @ 300 mls/hr IV Q12H [facility]; Protocol Last Infusion: 04/10/21 01:49 Dose: Infused Documented by: Piperacillin Sod/Tazobactam (Sod 3.375 gm/ Sodium Chloride) 50 mls @ 12.5 mls/hr IV Q8H [facility]; Protocol Last Admin: 04/10/21 04:34 Dose: 12.5 mls/hr Documented by: Albumin Human (Albumin) 25 gm in 100 mls @ 60 mls/hr IV Q8H [facility] Last Admin: 04/10/21 08:24 Dose: 60 mls/hr Documented by: Albumin Human (Albumin) 12.5 gm in 50 mls @ 60 mls/hr IV PRN PRN PRN Reason: Hypotension and/or symptomatic Insulin Glargine (Insulin Glargine 100 Units/1 Ml) 10 unit SUBCUT BID@0900,2100 [facility] Last Admin: 04/10/21 08:23 Dose: 10 unit Documented by: Insulin Human Lispro (Insulin Lispro 100 Unit/1 Ml) 0 unit SUBCUT WM&BEDTIME [facility]; Protocol Last Admin: 04/10/21 08:23 Dose: 6 unit Documented by: Metoclopramide HCl (Metoclopramide 5 Mg/Ml Sdv 2 Ml) 10 mg IVP Q6H PRN PRN Reason: NAUSEA AND VOMITING Last Admin: 03/30/21 11:12 Dose: 10 mg Documented by: Metoprolol Tartrate (Metoprolol Tartrate 25 Mg Tablet) 12.5 mg PO BID@0900,2100 [facility] Last Admin: 04/10/21 08:24 Dose: 12.5 mg Documented by: Multivitamins (Q-Zwydkrr-Malbeqa C Tablet) 1 each PO DAILY [facility] Last Admin: 04/10/21 08:24 Dose: 1 each Documented by: Ondansetron HCl (Ondansetron 2 Mg/Ml Sdv 2 Ml) 4 mg IVP Q8H PRN PRN Reason: vomiting, or N/V if npo Last Admin: 04/06/21 14:39 Dose: 4 mg Documented by: Oxybutynin Chloride (Oxybutynin 5 Mg Tablet) 5 mg PO TID [facility] Last Admin: 04/10/21 08:24 Dose: 5 mg Documented by: Pantoprazole Sodium (Pantoprazole 40 Mg Sdv) 40 mg IVP Q12H [facility] Last Admin: 04/10/21 08:25 Dose: 40 mg Documented by: Vitals/I&O/Wt Last Vital Signs Temp 98.0 F 04/19/21 04:20 Pulse 90 04/19/21 04:20 Resp 20 H 04/19/21 04:20 BP 163/73 04/19/21 04:20 Pulse Ox 95 04/19/21 04:20 04/18/21 04/18/21 04/19/21 14:59 22:59 06:59 Intake Total 360 / 360 360 / 720 300 / 1020 Output Total 3620 / 3620 225 / 3845 Balance 360 / 360 -3260 / -2900 75 / -2825 Weight last 48 hrs Weight 122.8 kg Weight 120.882 kg Weight 120.3 kg Physical Exam Narrative: Constitutional: Awake, comfortable HEENT: Wet mucosa, no jvp, non icteric Lungs: Bilaterally clear without discernible wheeze or rales in all lung zones CVS: S1 S2, no murmurs Abdo: Soft, BS ok Ext 4: 2-3+ edema, peripheral perfusion with no cyanosis Neurological: Grossly non-focal Urinary Catheter Management: Martinez: Cath Placed During This Visit: yes, but has since been removed by the nurse Reason for Continuing Indwelling Catheter: Acute Urinary Retention or Obstructio n Urinary Catheter Date of Insertion: 04/17/21 Urinary Catheter Time of Insertion: 16:30 Date Urinary Catheter Removed: 04/15/21 Time Urinary Catheter Discontinued: 18:32 Data : 04/18/21 05:35 04/18/21 05:35 A&P Assessment and plan (1) Acute renal failure superimposed on stage 3b chronic kidney disease: 1. Acute kidney injury Differential diagnosis includes contrast nephropathy, infection mediated or myelopathy, acute interstitial nephritis. Permacath in Close monitoring over the weekend with a plan for dialysis on Wednesday Outpatient team need to monitor closely for recovery and bring him off dialysis as soon as possible. Avoid usual nephrotoxic agents Dose medication for GFR less than 15 2. Chemistry pending 3. 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 Hemodynamics Elevated but this should come down with additional ultrafiltration today. 5. Anemia Hemoglobin 7.2, repeat pending today. Will get EPO. Will transfuse if hemoglobin less than 7. Okay to transfuse outside of dialysis i.e. later on today if necessary. Kristofer Noble MD Nephrology [phone] Patient seen and examined via telemedicine, with the assistance of the bedside RN > 25 min spent in evaluation and mgmt of patient Status: Acute Attestations Medical Necessity Statement*: ck Coding Level of Care Code Acute Template Fitter for [facility] Fwd Diagnoses Acute renal failure superimposed on stage 3b chronic kidney disease N17.9; N18.32
[2021-04-19 06:54] LABS: Glucose Point of Care 128 mg/dL (70-110)
[2021-04-19 07:01] LABS: Hematocrit 22.2 % (42.0-52.0); Hemoglobin 6.8 g/dL (11.7-16.6)
--- NOTE | 2021-04-19 08:12 | P.PN_ITS ---
Subjective Subjective: Patient is in good spirits, denies any neck or left lower extremity pain Medications: Reviewed: Yes Vitals/I&O/Wt Last Vital Signs Temp 98.0 F 04/19/21 04:20 Pulse 90 04/19/21 04:20 Resp 20 H 04/19/21 04:20 BP 163/73 04/19/21 04:20 Pulse Ox 95 04/19/21 04:20 04/18/21 04/19/21 04/19/21 22:59 06:59 14:59 Intake Total 360 / 1020 300 / 1020 Output Total 3620 / 3845 225 / 3845 Balance -3260 / -2825 75 / -2825 Weight last 48 hrs Weight 270 lb 11.642 oz Weight 266 lb 8 oz Weight 265 lb 3.457 oz Physical Exam Narrative: Right neck: Dressings dry and intact Left BKA: Incision clean dry and intact Urinary Catheter Management: Martinez: Cath Placed During This Visit: yes, but has since been removed by the nurse Reason for Continuing Indwelling Catheter: Acute Urinary Retention or Obstruction Urinary Catheter Date of Insertion: 04/17/21 Urinary Catheter Time of Insertion: 16:30 Date Urinary Catheter Removed: 04/15/21 Time Urinary Catheter Discontinued: 18:32 Data : 04/19/21 06:27 04/18/21 05:35 A&P Assessment and plan (1) S/P BKA (below knee amputation): Status post BKA for emphysematous osteomyelitis, doing well Daily dressing change with ABD, Kerlix, Sylvester wrap Continue PT Status: Acute (2) Acute renal failure superimposed on stage 3b chronic kidney disease: Status post tunneled dialysis catheter placement, doing well Awaiting for acceptance for dialysis center prior to discharge Status: Acute Attestations Medical Necessity Statement*: As per primary Coding Level of Care Code Acute Routing Machine Operator for [facility] Diagnoses S/P BKA (below knee amputation) Z89.519 Acute renal failure superimposed on stage 3b chronic kidney disease N17.9; N18.32
[2021-04-19] MEDS: aspirin 81 mg EC Tablet PO (08:52)
[2021-04-19] MEDS: oxybutynin 5 mg Tablet PO ×3 (08:52→21:18)
[2021-04-19] MEDS: b-complex-vitamin c Tablet 1 EACH PO (08:52)
[2021-04-19] MEDS: hyDRALAzine 25 mg Tablet PO ×3 (08:52→21:18)
[2021-04-19] MEDS: amlodipine 10 mg Tablet PO (08:52)
[2021-04-19] MEDS: pantoprazole DR 40 mg Tablet PO ×2 (08:52→21:18)
[2021-04-19] MEDS: allopurinol 100 mg Tablet PO (08:52)
[2021-04-19] MEDS: metoprolol tartrate 25 mg Tablet 12.5 MG PO ×2 (08:55→21:18)
[2021-04-19] MEDS: insulin glargine 100 units/1 mL 18 UNIT SUBCUT ×2 (08:55→21:17)
[2021-04-19 09:42] LABS: Albumin Level 3.2 g/dL (3.5-5.2); Anion Gap 14.5 (5-19); Blood Urea Nitrogen 30 mg/dL (6-20); Calcium 7.7 mg/dL (8.5-10.5); Carbon Dioxide 28 mmol/L (22-29); Chloride 100 mmol/L (98-107); Glomerular Filtration Rate 21.6 mL/min (90-130); Glucose 125 mg/dL (65-115); Phosphorus 4.1 mg/dL (2.5-4.5); Potassium 4.5 mmol/L (3.5-5.1); Sodium 138 mmol/L (136-145)
[2021-04-19 10:17] LABS: Basophils % 0.2 %; Eosinophils # 0.1 10^3/uL (0.0-0.8); Eosinophils % 3.3 %; Hematocrit 22.2 % (42.0-52.0); Lymphocytes # 0.9 10^3/uL (0.8-4.8); Lymphocytes % 20.4 %; Mean Corpuscular HGB Conc 31.1 g/dL (30.0-36.0); Mean Corpuscular Volume 90.2 fl (80-94); Mean Platelet Volume 9.6 fL (7.4-10.4); Monocytes # 0.5 10^3/uL (0.2-0.9); Monocytes % 11.5 %; Neutrophils # 2.73 10^3/uL (1.8-7.7); Neutrophils % 63.9 %; Nucleated Red Blood Cells % 0 %; Platelet Count 159 10^3/cmm (130-400); Red Blood Count 2.46 10^6/uL (4.1-5.3); Red Cell Distribution Width 14.6 % (12.1-15.1); White Blood Count 4.3 10^3/uL (4.0-10.0)
[2021-04-19 10:18] LABS: Hemoglobin 6.8 g/dL (11.7-16.6)
[2021-04-19 11:53] LABS: Glucose Point of Care 193 mg/dL (70-110)
[2021-04-19] MEDS: insulin lispro 100 unit/1 mL SUBCUT ×3 (12:06→21:17)
[2021-04-19] MEDS: epoetin alfa 1000 Unit/0.05 mL (ESRD) 20000 UNIT SUBCUT (12:09)
[2021-04-19] MEDS: sodium chloride 0.9% (100 ml) 100 ML 50 ML (13:56)
--- NOTE | 2021-04-19 15:10 | P.PN_ITS ---
Subjective Subjective: This morning patient is looking less edematous this is the first day when his volume status seems to be improved Requested 1 unit PRBC for drop in hemoglobin Vitals/I&O/Wt Last Vital Signs Temp 98.3 F 04/19/21 14:16 Pulse 94 04/19/21 14:16 Resp 14 04/19/21 14:16 BP 180/78 04/19/21 14:16 Pulse Ox 96 04/19/21 14:16 04/19/21 04/19/21 04/19/21 06:59 14:59 22:59 Intake Total 300 / 1020 956 / 956 Output Total 225 / 3845 Balance 75 / -2825 956 / 956 Weight last 48 hrs Weight 119.612 kg Weight 122.8 kg Weight 120.882 kg Weight 120.3 kg Physical Exam Narrative: Patient resting comfortably Looks less edematous Scrotal edema and leg edema seems to be getting better S1, S2 Abdomen less bloated EOMI, PERRLA Nonfocal neuro exam Martinez catheter draining yellow clear urine Urinary Catheter Management: Martinez: Cath Placed During This Visit: yes, but has since been removed by the nurse Reason for Continuing Indwelling Catheter: Acute Urinary Retention or Obstruction Urinary Catheter Date of Insertion: 04/17/21 Urinary Catheter Time of Insertion: 16:30 Date Urinary Catheter Removed: 04/15/21 Time Urinary Catheter Discontinued: 18:32 Data : 04/19/21 06:27 04/19/21 06:27 A&P Assessment and plan (1) Anemia: Status: Acute (2) S/P BKA (below knee amputation): Status: Acute (3) Foot osteomyelitis, left: Status: Acute (4) Diabetic peripheral neuropathy associated with type 2 diabetes mellitus: Status: Acute (5) Contrast dye induced nephropathy: Status: Acute (6) ATN (acute tubular necrosis): Status: Acute Plan ATN: Patient is waiting for chair time Anemia due to chronic kidney disease will need iron, EPO, 1 unit PRBC today Anasarca seems to be improving Patient is making urine Family updated Consistent carb dialysis diet Insulin for hyperglycemia Full code DVT prophylaxis on hold Attestations Medical Necessity Statement*: Awaiting chair time Time Spent in Patient Care: 10min Coding Level of Care Code Acute Rental Counter Clerk for [facility] Diagnoses Anemia D64.9 S/P BKA (below knee amputation) Z89.519 Foot osteomyelitis, left M86.9 Diabetic peripheral neuropathy associated with type 2 diabetes mellitus E11.42 Contrast dye induced nephropathy N14.1; T50.8X5A ATN (acute tubular necrosis) N17.0
[2021-04-19 16:47] LABS: Glucose Point of Care 273 mg/dL (70-110)
[2021-04-19 21:22] LABS: Glucose Point of Care 214 mg/dL (70-110)
[2021-04-20] VITALS (7 sets, daily range): BP systolic 130–147; BP diastolic 70–79; PULSE 74–99; RESP 16–19; TEMP 36.5–36.9; O2SAT 93–97
[2021-04-20 06:43] LABS: Basophils % 0.3 %; Eosinophils # 0.1 10^3/uL (0.0-0.8); Eosinophils % 2.4 %; Hematocrit 27.5 % (42.0-52.0); Hemoglobin 8.8 g/dL (11.7-16.6); Lymphocytes # 0.9 10^3/uL (0.8-4.8); Mean Corpuscular Hemoglobin 28.3 pg (28.0-34.0); Mean Corpuscular Volume 88.4 fl (80-94); Mean Platelet Volume 9.3 fL (7.4-10.4); Monocytes # 0.6 10^3/uL (0.2-0.9); Monocytes % 10.5 %; Neutrophils # 4.24 10^3/uL (1.8-7.7); Neutrophils % 71.5 %; Nucleated Red Blood Cells % 0 %; Platelet Count 189 10^3/cmm (130-400); Red Blood Count 3.11 10^6/uL (4.1-5.3); Red Cell Distribution Width 14.5 % (12.1-15.1); White Blood Count 5.9 10^3/uL (4.0-10.0)
[2021-04-20 06:49] LABS: Glucose Point of Care 131 mg/dL (70-110)
[2021-04-20 07:21] LABS: Anion Gap 15.8 (5-19); Blood Urea Nitrogen 38 mg/dL (6-20); Calcium 7.8 mg/dL (8.5-10.5); Carbon Dioxide 27 mmol/L (22-29); Chloride 96 mmol/L (98-107); Glucose 106 mg/dL (65-115); Osmolality Calculated 287 mOsm/kg (285-295); Potassium 4.8 mmol/L (3.5-5.1); Sodium 134 mmol/L (136-145)
[2021-04-20] MEDS: hyDRALAzine 25 mg Tablet PO ×3 (07:52→21:38)
[2021-04-20] MEDS: aspirin 81 mg EC Tablet PO (07:52)
[2021-04-20] MEDS: b-complex-vitamin c Tablet 1 EACH PO (07:52)
[2021-04-20] MEDS: allopurinol 100 mg Tablet PO (07:52)
[2021-04-20] MEDS: amlodipine 10 mg Tablet PO (07:52)
[2021-04-20] MEDS: metoprolol tartrate 25 mg Tablet 12.5 MG PO ×2 (07:52→21:37)
[2021-04-20] MEDS: insulin glargine 100 units/1 mL 18 UNIT SUBCUT ×2 (07:53→21:38)
[2021-04-20] MEDS: pantoprazole DR 40 mg Tablet PO ×2 (07:53→21:38)
[2021-04-20] MEDS: oxybutynin 5 mg Tablet PO ×3 (07:53→21:38)
--- NOTE | 2021-04-20 08:28 | PM.PN ---
Subjective Subjective: feels better. states he is urinating. no n/v/f/c/belcher/d/+ dec edema. Medications: Reviewed: Yes Medication Review Details: Current Medications Albuterol/Ipratropium (Ipratropium-Albuterol 3 Ml Neb) 3 ml INHALATION Q6H.RESPIRATORY PRN PRN Reason: SHORTNESS OF BREATH Allopurinol (Allopurinol 100 Mg Tablet) 100 mg PO DAILY [facility] Last Admin: 04/20/21 07:52 Dose: 100 mg Documented by: Amlodipine Besylate (Amlodipine 10 Mg Tablet) 10 mg PO DAILY [facility] Last Admin: 04/20/21 07:52 Dose: 10 mg Documented by: Aspirin (Aspirin 81 Mg Ec Tablet) 81 mg PO DAILY [facility] Last Admin: 04/20/21 07:52 Dose: 81 mg Documented by: Lidocaine HCl 1.667 ml/Diphenhydramine HCl 4.165 mg/Al Hydrox/Mg Hydrox/Simethicone 1.667 ml 0 ml MUCOUS MEM Q4H PRN PRN Reason: MOUTH PAIN Last Admin: 04/06/21 17:33 Dose: 7.5 ml Documented by: Ergocalciferol (Ergocalciferol (Vitamin D2) 50,000 Unit Capsule) 50,000 unit PO Q7D [facility] Last Admin: 04/17/21 11:15 Dose: 50,000 unit Documented by: Heparin Sodium (Porcine) (Heparin 5,000 Unit/Ml Inj 1 Ml) 5,000 unit SUBCUT Q8H [facility] Last Admin: 04/18/21 03:39 Dose: Not Given Documented by: Hydralazine HCl (Hydralazine 20 Mg/Ml Inj 1 Ml) 5 mg IVP Q4H PRN PRN Reason: sbp>180 Last Admin: 04/15/21 15:00 Dose: 5 mg Documented by: Hydralazine HCl (Hydralazine 25 Mg Tablet) 25 mg PO TID [facility] Last Admin: 04/20/21 07:52 Dose: 25 mg Documented by: Insulin Glargine (Insulin Glargine 100 Units/1 Ml) 18 unit SUBCUT BID@0900,2100 [facility] Last Admin: 04/20/21 07:53 Dose: 18 unit Documented by: Insulin Human Lispro (Insulin Lispro 100 Unit/1 Ml) 0 unit SUBCUT WM&BEDTIME [facility]; Protocol Last Admin: 04/20/21 07:33 Dose: Not Given Documented by: Metoprolol Tartrate (Metoprolol Tartrate 25 Mg Tablet) 12.5 mg PO BID@0900,2100 [facility] Last Admin: 04/20/21 07:52 Dose: 12.5 mg Documented by: Multivitamins (Z-Iphaqws-Dsogqwb C Tablet) 1 each PO DAILY [facility] Last Admin: 04/20/21 07:52 Dose: 1 each Documented by: Oxybutynin Chloride (Oxybutynin 5 Mg Tablet) 5 mg PO TID [facility] Last Admin: 04/20/21 07:53 Dose: 5 mg Documented by: Oxycodone/Acetaminophen (Oxycodone-Apap 5-325 Mg Tablet) 1 tab PO Q4H PRN PRN Reason: MODERATE PAIN Last Admin: 04/16/21 20:52 Dose: 1 tab Documented by: Pantoprazole Sodium (Pantoprazole Dr 40 Mg Tablet) 40 mg PO Q12H [facility] Last Admin: 04/20/21 07:53 Dose: 40 mg Documented by: Vitals/I&O/Wt Last Vital Signs Temp 98.1 F 04/20/21 07:17 Pulse 94 04/20/21 07:17 Resp 18 04/20/21 07:17 BP 142/79 04/20/21 07:17 Pulse Ox 97 04/20/21 07:17 04/19/21 04/20/21 04/20/21 22:59 06:59 14:59 Intake Total 1140 / 2096 400 / 2496 Output Total 680 / 680 580 / 1260 Balance 460 / 1416 -180 / 1236 Weight last 48 hrs Weight 120.293 kg Weight 119.612 kg Weight 122.8 kg Physical Exam Narrative: comfortable, NARD, in bed vss heent- nc/at, eomi neck no jvp, rt ij dialysis catheter lung dull bases b/l heart reg, no rub abd soft, nt, nd, + bs ext LLE BKA, 1+ RLE edema neuro a,a, o x 3 Urinary Catheter Management: Martinez: Cath Placed During This Visit: yes, but has since been removed by the nurse Reason for Continuing Indwelling Catheter: Other Urinary Catheter Date of Insertion: 04/17/21 Urinary Catheter Time of Insertion: 16:30 Date Urinary Catheter Removed: 04/15/21 Time Urinary Catheter Discontinued: 18:32 Data : 04/20/21 06:16 04/20/21 06:16 A&P Assessment and plan (1) Acute renal failure superimposed on stage 3b chronic kidney disease: 1. Acute kidney injury Differential diagnosis includes contrast nephropathy, infection mediated or myelopathy, acute interstitial nephritis. Permacath placed -assess for HD vs renal recovery in am Outpatient team need to monitor closely for recovery and bring him off dialysis as soon as possible. Avoid usual nephrotoxic agents Dose medication for GFR less than 15 2. hyponatremia- improving 3. 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 DM control per medicine 5. Anemia Hemoglobin 8.8- s/p prbc tx -cont EPO. 6.HTN - avoid ARB/ ARIANNE-I/ ALDACTONE? w/ ALESIA -BP controlled-? dec meds 7. replace vit d -check pth 8. monitor uric acid Patient seen and examined via telemedicine, with the assistance of the bedside RN > 25 min spent in evaluation and mgmt of patient Status: Acute Plan as above Attestations Medical Necessity Statement*: alesia- on hd Time Spent in Patient Care: 16 - 35 minutes (>than 50% of time spent in counselling and/or direct pt care on unit). Coding Level of Care Code Acute Cold Roll Operator for [facility] Diagnoses Acute renal failure superimposed on stage 3b chronic kidney disease N17.9; N18.32
--- NOTE | 2021-04-20 10:34 | P.PN_ITS ---
Subjective Subjective: Patient is doing fine, no overnight events, patient is stating that after his second unit of PRBC he has started feeling mild short of breath, experiencing dry cough, will repeat x-ray and give Lasix today Vitals/I&O/Wt Last Vital Signs Temp 98.1 F 04/20/21 07:17 Pulse 94 04/20/21 07:17 Resp 16 04/20/21 09:28 BP 142/79 04/20/21 07:17 Pulse Ox 97 04/20/21 09:28 04/19/21 04/20/21 04/20/21 22:59 06:59 14:59 Intake Total 1140 / 2096 400 / 2496 360 / 360 Output Total 680 / 680 580 / 1260 Balance 460 / 1416 -180 / 1236 360 / 360 Weight last 48 hrs Weight 120.293 kg Weight 119.612 kg Weight 122.8 kg Physical Exam Narrative: Generalized anasarca is improving Prominent skin wrinkling Bilateral breath sounds which are clear no crackles Abdomen distended however no signs of peritonitis EOMI, PERRLA Nonfocal exam Doing well on room air Urinary Catheter Management: Martinez: Cath Placed During This Visit: yes, but has since been removed by the nurse Reason for Continuing Indwelling Catheter: Other Urinary Catheter Date of Insertion: 04/17/21 Urinary Catheter Time of Insertion: 16:30 Date Urinary Catheter Removed: 04/15/21 Time Urinary Catheter Discontinued: 18:32 Data : 04/20/21 06:16 04/20/21 06:16 A&P Assessment and plan (1) ATN (acute tubular necrosis): Status: Acute (2) Anemia: Status: Acute (3) S/P BKA (below knee amputation): Status: Acute (4) Diabetic peripheral neuropathy associated with type 2 diabetes mellitus: Status: Acute (5) Hyperosmolar hyperglycemic state (HHS): Status: Acute (6) Essential hypertension: Status: Acute Plan Total 3 units PRBC for anemia related to kidney failure Will need EPO and iron as per nephro recommendation Plan is to discharge him as soon as we are able to find him chair time Creatinine has worsened however his urine output has picked up No signs of hyperkalemia Repeating chest x-ray will give him Lasix DuoNeb treatment and IV steroids as he is feeling short of breath after getting blood transfusion at the bedside Suture to be removed Wednesday next week Holding DVT prophylaxis because ofDrop in hemoglobin however no active bleed has been noticed Attestations Medical Necessity Statement*: Discharge possibly 24 hours Time Spent in Patient Care: 20min Coding Level of Care Code Acute Police And Fire Dispatcher for Chg Fwd Diagnoses ATN (acute tubular necrosis) N17.0 Anemia D64.9 S/P BKA (below knee amputation) Z89.519 Diabetic peripheral neuropathy associated with type 2 diabetes mellitus E11.42 Hyperosmolar hyperglycemic state (HHS) E11.00; E11.65 Essential hypertension I10
--- NOTE | 2021-04-20 10:36 | XRR_ITS ---
PROCEDURE INFORMATION: Exam: XR Chest Exam date and time: 04/20/2021 10:36 AM Age: 56 years old Clinical indication: Shortness of breath; Additional info: SOB after prbc TECHNIQUE: Imaging protocol: XR of the chest. Views: 1 view. COMPARISON: CR XR chest 1V portable [id number] 04/10/2021 8:54 PM FINDINGS: Tubes, catheters and devices: There is a right subclavian catheter whose tip is in the right atrium. Lungs: Unremarkable. No consolidation. Pleural spaces: Unremarkable. No pleural effusion. No pneumothorax. Heart/Mediastinum: Unremarkable. No cardiomegaly. Bones/joints: Unremarkable. XR/XR chest 1V portable [id number] IMPRESSION: There are no acute concerning abnormalities.
[2021-04-20 11:16] LABS: Glucose Point of Care 181 mg/dL (70-110)
[2021-04-20] MEDS: insulin lispro 100 unit/1 mL SUBCUT ×3 (11:49→21:37)
[2021-04-20] MEDS: FUROsemide 10 mg/mL SDV 4mL 40 MG IVP (11:50)
[2021-04-20 16:59] LABS: Glucose Point of Care 205 mg/dL (70-110)
[2021-04-20 20:45] LABS: Glucose Point of Care 275 mg/dL (70-110)
[2021-04-20] MEDS: hyDROXYzine 25 mg Capsule PO (23:27)
[2021-04-21] VITALS (7 sets, daily range): BP systolic 136–174; BP diastolic 68–88; PULSE 87–96; RESP 14–17; TEMP 36.6–37.1; O2SAT 92–96
[2021-04-21 04:43] LABS: Basophils % 0.2 %; Eosinophils % 0.2 %; Hematocrit 28.4 % (42.0-52.0); Hemoglobin 8.7 g/dL (11.7-16.6); Lymphocytes # 0.7 10^3/uL (0.8-4.8); Lymphocytes % 13.8 %; Mean Corpuscular HGB Conc 30.6 g/dL (30.0-36.0); Mean Corpuscular Hemoglobin 27.5 pg (28.0-34.0); Mean Corpuscular Volume 89.9 fl (80-94); Mean Platelet Volume 9.3 fL (7.4-10.4); Monocytes # 0.5 10^3/uL (0.2-0.9); Monocytes % 10.2 %; Neutrophils # 3.81 10^3/uL (1.8-7.7); Nucleated Red Blood Cells % 0 %; Platelet Count 213 10^3/cmm (130-400); Red Blood Count 3.16 10^6/uL (4.1-5.3); Red Cell Distribution Width 14.3 % (12.1-15.1); White Blood Count 5.1 10^3/uL (4.0-10.0)
[2021-04-21 04:54] LABS: Alanine Aminotransferase 16 U/L (0-41); Albumin Level 3.3 g/dL (3.5-5.2); Alkaline Phosphatase 81 IU/L (40-130); Aspartate Amino Transferase 16 U/L (0-40); Blood Urea Nitrogen 47 mg/dL (6-20); Calcium 7.9 mg/dL (8.5-10.5); Carbon Dioxide 24 mmol/L (22-29); Chloride 96 mmol/L (98-107); Globulin 2.7 g/dL (1.3-4.6); Glomerular Filtration Rate 13.9 mL/min (90-130); Glucose 140 mg/dL (65-115); Magnesium 2.1 mg/dL (1.7-2.3); Osmolality Calculated 289 mOsm/kg (285-295); Phosphorus 4.7 mg/dL (2.5-4.5); Sodium 132 mmol/L (136-145); Total Bilirubin 0.5 mg/dL (0.15-1.2)
[2021-04-21 04:56] LABS: Anion Gap 16.9 (5-19); Potassium 4.9 mmol/L (3.5-5.1)
[2021-04-21 05:05] LABS: Calcium 8.6 mg/dL (8.5-10.5)
[2021-04-21 05:13] LABS: Parathyroid Hormone 140.4 pg/mL (15-65)
[2021-04-21 06:39] LABS: Glucose Point of Care 144 mg/dL (70-110)
[2021-04-21] MEDS: insulin lispro 100 unit/1 mL SUBCUT ×4 (08:00→20:56)
[2021-04-21] MEDS: amlodipine 10 mg Tablet PO (08:00)
[2021-04-21] MEDS: allopurinol 100 mg Tablet PO (08:00)
[2021-04-21] MEDS: hyDRALAzine 25 mg Tablet PO (08:00)
[2021-04-21] MEDS: metoprolol tartrate 25 mg Tablet 12.5 MG PO ×2 (08:01→11:36)
[2021-04-21] MEDS: pantoprazole DR 40 mg Tablet PO ×2 (08:01→20:53)
[2021-04-21] MEDS: aspirin 81 mg EC Tablet PO (08:01)
[2021-04-21] MEDS: oxybutynin 5 mg Tablet PO ×3 (08:01→20:53)
[2021-04-21] MEDS: insulin glargine 100 units/1 mL 18 UNIT SUBCUT ×2 (08:03→20:55)
--- NOTE | 2021-04-21 08:34 | P.PN_ITS ---
Subjective Subjective: feels better. states he is urinating more. no n/v/f/c/belcher/d. wants to see if he is having renal recovery. decreased edema. Medications: Reviewed: Yes Medication Review Details: Current Medications Albuterol/Ipratropium (Ipratropium-Albuterol 3 Ml Neb) 3 ml INHALATION Q6H.RESPIRATORY PRN PRN Reason: SHORTNESS OF BREATH Allopurinol (Allopurinol 100 Mg Tablet) 100 mg PO DAILY [facility] Last Admin: 04/21/21 08:00 Dose: 100 mg Documented by: Amlodipine Besylate (Amlodipine 10 Mg Tablet) 10 mg PO DAILY [facility] Last Admin: 04/21/21 08:00 Dose: 10 mg Documented by: Aspirin (Aspirin 81 Mg Ec Tablet) 81 mg PO DAILY [facility] Last Admin: 04/21/21 08:01 Dose: 81 mg Documented by: Lidocaine HCl 1.667 ml/Diphenhydramine HCl 4.165 mg/Al Hydrox/Mg Hydrox/Simethicone 1.667 ml 0 ml MUCOUS MEM Q4H PRN PRN Reason: MOUTH PAIN Last Admin: 04/06/21 17:33 Dose: 7.5 ml Documented by: Ergocalciferol (Ergocalciferol (Vitamin D2) 50,000 Unit Capsule) 50,000 unit PO Q7D [facility] Last Admin: 04/17/21 11:15 Dose: 50,000 unit Documented by: Heparin Sodium (Porcine) (Heparin 5,000 Unit/Ml Inj 1 Ml) 5,000 unit SUBCUT Q8H [facility] Last Admin: 04/18/21 03:39 Dose: Not Given Documented by: Hydralazine HCl (Hydralazine 20 Mg/Ml Inj 1 Ml) 5 mg IVP Q4H PRN PRN Reason: sbp>180 Last Admin: 04/15/21 15:00 Dose: 5 mg Documented by: Hydralazine HCl (Hydralazine 25 Mg Tablet) 25 mg PO TID [facility] Last Admin: 04/21/21 08:00 Dose: 25 mg Documented by: Hydroxyzine Pamoate (Hydroxyzine 25 Mg Capsule) 25 mg PO ONCE PRN PRN Reason: ANXIETY Last Admin: 04/20/21 23:27 Dose: 25 mg Documented by: Insulin Glargine (Insulin Glargine 100 Units/1 Ml) 18 unit SUBCUT BID@0900,2100 [facility] Last Admin: 04/21/21 08:03 Dose: 18 unit Documented by: Insulin Human Lispro (Insulin Lispro 100 Unit/1 Ml) 0 unit SUBCUT WM&BEDTIME [facility]; Protocol Last Admin: 04/21/21 08:00 Dose: 2 unit Documented by: Metoprolol Tartrate (Metoprolol Tartrate 25 Mg Tablet) 12.5 mg PO BID@0900,2100 [facility] Last Admin: 04/21/21 08:01 Dose: 12.5 mg Documented by: Multivitamins (M-Cyduvbf-Wxytlug C Tablet) 1 each PO DAILY [facility] Last Admin: 04/20/21 07:52 Dose: 1 each Documented by: Oxybutynin Chloride (Oxybutynin 5 Mg Tablet) 5 mg PO TID [facility] Last Admin: 04/21/21 08:01 Dose: 5 mg Documented by: Oxycodone/Acetaminophen (Oxycodone-Apap 5-325 Mg Tablet) 1 tab PO Q4H PRN PRN Reason: MODERATE PAIN Last Admin: 04/16/21 20:52 Dose: 1 tab Documented by: Pantoprazole Sodium (Pantoprazole Dr 40 Mg Tablet) 40 mg PO Q12H [facility] Last Admin: 04/21/21 08:01 Dose: 40 mg Documented by: Vitals/I&O/Wt Last Vital Signs Temp 97.8 F 04/21/21 07:14 Pulse 93 04/21/21 07:14 Resp 15 04/21/21 07:14 BP 174/83 04/21/21 07:14 Pulse Ox 96 04/21/21 07:14 04/20/21 04/21/21 04/21/21 22:59 06:59 14:59 Intake Total 120 / 480 100 / 580 Output Total 800 / 800 900 / 1700 Balance -680 / -320 -800 / -1120 Weight last 48 hrs Weight 120.519 kg Weight 120.293 kg Weight 119.612 kg Physical Exam Narrative: comfortable, NARD, in bed vs noted- BP elevated heent- nc/at, eomi neck no jvp, rt ij dialysis catheter lung dull bases b/l heart reg, no rub abd soft, nt, nd, + bs ext LLE BKA, 2+ b/l LE edema neuro a,a, o x 3 Urinary Catheter Management: Martinez: Cath Placed During This Visit: yes, but has since been removed by the nurse Reason for Continuing Indwelling Catheter: Acute Urinary Retention or Obstruction Urinary Catheter Date of Insertion: 04/17/21 Urinary Catheter Time of Insertion: 16:30 Date Urinary Catheter Removed: 04/15/21 Time Urinary Catheter Discontinued: 18:32 Data : 04/21/21 04:21 04/21/21 04:21 A&P Assessment and plan (1) Acute renal failure superimposed on stage 3b chronic kidney disease: 1. Acute kidney injury Differential diagnosis includes contrast nephropathy, infection mediated or myelopathy, acute interstitial nephritis. Permacath placed -pt is urinating. However, cr still rising. likely needs HD. However, pt wants to hold a day and assess for renal recovery Outpatient team need to monitor closely for recovery and bring him off dialysis as soon as possible. Avoid usual nephrotoxic agents Dose medication for GFR less than 15 -phos good - Q should asa and consider outpt renal biopsy 2. hyponatremia-will monitor 3. 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 DM control per medicine 5. Anemia Hemoglobin 8.7- s/p prbc tx -cont EPO. 6.HTN - avoid ARB/ ARIANNE-I/ ALDACTONE? w/ ALESIA -BP high-norvasc and hydralazine- inc metoprolol 7. replace vit d - pth 140 8. monitor uric acid Patient seen and examined via telemedicine, with the assistance of the bedside RN > 25 min spent in evaluation and mgmt of patient Status: Acute Plan as above Attestations Medical Necessity Statement*: ALESIA Time Spent in Patient Care: 16 - 35 minutes (>than 50% of time spent in counselling and/or direct pt care on unit) . Coding Level of Care Code Acute Diplomatic Interpreter/Translator for g Fwd Diagnoses Acute renal failure superimposed on stage 3b chronic kidney disease N17.9; N18.32
[2021-04-21 11:41] LABS: Glucose Point of Care 143 mg/dL (70-110)
--- NOTE | 2021-04-21 12:30 | P.PN_ITS ---
Subjective Subjective: Patient is awaiting chair time Appreciate nephro recommendations Outpatient renal biopsy Vitals/I&O/Wt Last Vital Signs Temp 97.8 F 04/21/21 07:14 Pulse 95 04/21/21 10:11 Resp 16 04/21/21 10:11 BP 174/83 04/21/21 07:14 Pulse Ox 92 04/21/21 10:11 04/20/21 04/21/21 04/21/21 22:59 06:59 14:59 Intake Total 120 / 480 100 / 580 240 / 240 Output Total 800 / 800 900 / 1700 Balance -680 / -320 -800 / -1120 240 / 240 Weight last 48 hrs Weight 120.519 kg Weight 120.293 kg Weight 119.612 kg Physical Exam Narrative: Anasarca improving Hemoglobin stable Patient resting comfortably in his bed Saturating well on room air No active complaints Nonfocal neuro exam No audible stridor or wheezing Urinary Catheter Management: Martinez: Cath Placed During This Visit: yes, but has since been removed by the nurse Reason for Continuing Indwelling Catheter: Acute Urinary Retention or Obstruction Urinary Catheter Date of Insertion: 04/17/21 Urinary Catheter Time of Insertion: 16:30 Date Urinary Catheter Removed: 04/15/21 Time Urinary Catheter Discontinued: 18:32 Data : 04/21/21 04:21 04/21/21 04:21 A&P Assessment and plan (1) ATN (acute tubular necrosis): Status: Acute (2) Anemia: Status: Acute (3) S/P BKA (below knee amputation): Status: Acute Plan I am not planning to change any medications today other than antihypertensive patient is awaiting chair time, will be discharged as soon as I hear back from the case management Stable hemoglobin Outpatient renal biopsy Euglycemic continue current insulin regimen Optimize antihypertensive, increase atorvastatin, metoprolol added by punch machine operator, will give 1 dose of Lasix 20 mg today Attestations Medical Necessity Statement*: Continue medical management Time Spent in Patient Care: 10min Coding Level of Care Code Acute Riding Double for g Fwd Diagnoses ATN (acute tubular necrosis) N17.0 Anemia D64.9 S/P BKA (below knee amputation) Z89.519
[2021-04-21] MEDS: FUROsemide 20 mg Tablet PO (13:19)
[2021-04-21] MEDS: heparin 5,000 unit/mL INJ 1 mL 5000 UNIT SUBCUT ×2 (13:19→20:53)
[2021-04-21] MEDS: hyDRALAzine 50 mg Tablet PO ×2 (15:04→20:53)
[2021-04-21 17:33] LABS: Glucose Point of Care 209 mg/dL (70-110)
[2021-04-21 17:38] LABS: Hepatitis B Core AB, Total Non-Reactive (Nonreactive)
[2021-04-21] MEDS: metoprolol tartrate 25 mg Tablet PO (20:53)
[2021-04-21 21:18] LABS: Glucose Point of Care 170 mg/dL (70-110)
[2021-04-21] MEDS: hyDROXYzine 25 mg Capsule PO (21:57)
[2021-04-22] VITALS (9 sets, daily range): BP systolic 137–166; BP diastolic 77–89; PULSE 81–112; RESP 16–20; TEMP 36.5–37.1; O2SAT 90–98
[2021-04-22] MEDS: heparin 5,000 unit/mL INJ 1 mL 5000 UNIT SUBCUT ×3 (05:34→20:55)
[2021-04-22 06:12] LABS: Basophils % 0.3 %; Eosinophils # 0.1 10^3/uL (0.0-0.8); Eosinophils % 1.9 %; Hematocrit 29.1 % (42.0-52.0); Hemoglobin 9.3 g/dL (11.7-16.6); Lymphocytes # 1.4 10^3/uL (0.8-4.8); Lymphocytes % 18.9 %; Mean Corpuscular Hemoglobin 28.3 pg (28.0-34.0); Mean Corpuscular Volume 88.4 fl (80-94); Mean Platelet Volume 9.1 fL (7.4-10.4); Monocytes # 0.8 10^3/uL (0.2-0.9); Monocytes % 11.6 %; Neutrophils # 4.84 10^3/uL (1.8-7.7); Neutrophils % 66.7 %; Nucleated Red Blood Cells % 0 %; Platelet Count 297 10^3/cmm (130-400); Red Blood Count 3.29 10^6/uL (4.1-5.3); Red Cell Distribution Width 14.6 % (12.1-15.1); White Blood Count 7.3 10^3/uL (4.0-10.0)
[2021-04-22 06:32] LABS: Alanine Aminotransferase 22 U/L (0-41); Albumin Level 3.5 g/dL (3.5-5.2); Alkaline Phosphatase 98 IU/L (40-130); Aspartate Amino Transferase 20 U/L (0-40); Blood Urea Nitrogen 59 mg/dL (6-20); Calcium 8.8 mg/dL (8.5-10.5); Carbon Dioxide 25 mmol/L (22-29); Chloride 97 mmol/L (98-107); Globulin 3.1 g/dL (1.3-4.6); Glomerular Filtration Rate 13.9 mL/min (90-130); Glucose 75 mg/dL (65-115); Magnesium 2.1 mg/dL (1.7-2.3); Osmolality Calculated 293 mOsm/kg (285-295); Phosphorus 4.7 mg/dL (2.5-4.5); Sodium 134 mmol/L (136-145); Total Bilirubin 0.5 mg/dL (0.15-1.2); Total Protein 6.6 g/dL (6.6-8.7); Uric Acid 5.9 mg/dL (3.4-7.0)
[2021-04-22 06:38] LABS: Anion Gap 16.7 (5-19); Potassium 4.7 mmol/L (3.5-5.1)
[2021-04-22 06:48] LABS: Glucose Point of Care 135 mg/dL (70-110)
[2021-04-22] MEDS: allopurinol 100 mg Tablet PO (08:34)
[2021-04-22] MEDS: hyDRALAzine 50 mg Tablet PO ×3 (08:34→20:55)
[2021-04-22] MEDS: insulin glargine 100 units/1 mL 18 UNIT SUBCUT ×2 (08:34→21:38)
[2021-04-22] MEDS: oxybutynin 5 mg Tablet PO ×3 (08:34→20:55)
[2021-04-22] MEDS: amlodipine 10 mg Tablet PO (08:34)
[2021-04-22] MEDS: pantoprazole DR 40 mg Tablet PO ×2 (08:34→20:55)
[2021-04-22] MEDS: metoprolol tartrate 25 mg Tablet PO ×2 (08:37→20:55)
--- NOTE | 2021-04-22 09:18 | PM.PN ---
Subjective Subjective: feels better. states he is eating well. no sob, belcher, cp, diarrhea. good uop. Medications: Reviewed: Yes Medication Review Details: Current Medications Albuterol/Ipratropium (Ipratropium-Albuterol 3 Ml Neb) 3 ml INHALATION Q6H.RESPIRATORY PRN PRN Reason: SHORTNESS OF BREATH Allopurinol (Allopurinol 100 Mg Tablet) 100 mg PO DAILY [facility] Last Admin: 04/22/21 08:34 Dose: 100 mg Documented by: Amlodipine Besylate (Amlodipine 10 Mg Tablet) 10 mg PO DAILY [facility] Last Admin: 04/22/21 08:34 Dose: 10 mg Documented by: Lidocaine HCl 1.667 ml/Diphenhydramine HCl 4.165 mg/Al Hydrox/Mg Hydrox/Simethicone 1.667 ml 0 ml MUCOUS MEM Q4H PRN PRN Reason: MOUTH PAIN Last Admin: 04/06/21 17:33 Dose: 7.5 ml Documented by: Ergocalciferol (Ergocalciferol (Vitamin D2) 50,000 Unit Capsule) 50,000 unit PO Q7D [facility] Last Admin: 04/17/21 11:15 Dose: 50,000 unit Documented by: Heparin Sodium (Porcine) (Heparin 5,000 Unit/Ml Inj 1 Ml) 5,000 unit SUBCUT Q8H [facility] Last Admin: 04/22/21 05:34 Dose: 5,000 unit Documented by: Hydralazine HCl (Hydralazine 20 Mg/Ml Inj 1 Ml) 5 mg IVP Q4H PRN PRN Reason: sbp>180 Last Admin: 04/15/21 15:00 Dose: 5 mg Documented by: Hydralazine HCl (Hydralazine 50 Mg Tablet) 50 mg PO TID [facility] Last Admin: 04/22/21 08:34 Dose: 50 mg Documented by: Insulin Glargine (Insulin Glargine 100 Units/1 Ml) 18 unit SUBCUT BID@0900,2100 [facility] Last Admin: 04/22/21 08:34 Dose: 18 unit Documented by: Insulin Human Lispro (Insulin Lispro 100 Unit/1 Ml) 0 unit SUBCUT WM&BEDTIME [facility]; Protocol Last Admin: 04/22/21 08:10 Dose: Not Given Documented by: Metoprolol Tartrate (Metoprolol Tartrate 25 Mg Tablet) 25 mg PO BID@0900,2100 [facility] Last Admin: 04/22/21 08:37 Dose: 25 mg Documented by: Oxybutynin Chloride (Oxybutynin 5 Mg Tablet) 5 mg PO TID [facility] Last Admin: 04/22/21 08:34 Dose: 5 mg Documented by: Pantoprazole Sodium (Pantoprazole Dr 40 Mg Tablet) 40 mg PO Q12H [facility] Last Admin: 04/22/21 08:34 Dose: 40 mg Documented by: Vitals/I&O/Wt Last Vital Signs Temp 98.4 F 04/22/21 07:56 Pulse 84 04/22/21 07:56 Resp 18 04/22/21 07:56 BP 155/87 04/22/21 07:56 Pulse Ox 98 04/22/21 07:56 04/21/21 04/22/21 04/22/21 22:59 06:59 14:59 Intake Total 220 / 700 Output Total 750 / 750 1100 / 1850 Balance -530 / -50 -1100 / -1150 Weight last 48 hrs Weight 120.701 kg Weight 120.519 kg Physical Exam Narrative: comfortable, NARD, in bed vss heent- nc/at, eomi neck no jvp, rt ij dialysis catheter lung - good air movement b/l heart reg, no rub abd soft, nt, nd, + bs ext LLE? BKA, 1+ RLE edema neuro a,a, o x 3 Urinary Catheter Management: Martinez: Cath Placed During This Visit: yes, but has since been removed by the nurse Reason for Continuing Indwelling Catheter: Other Urinary Catheter Date of Insertion: 04/17/21 Urinary Catheter Time of Insertion: 16:30 Date Urinary Catheter Removed: 04/15/21 Time Urinary Catheter Discontinued: 18:32 Data : 04/22/21 05:56 04/22/21 05:56 A&P Assessment and plan (1) ATN (acute tubular necrosis): 1.? Acute kidney injury Differential diagnosis includes contrast nephropathy, infection mediated or myelopathy, acute interstitial nephritis. Permacath placed - cr stable- hold HD and monitor for renal recovery -Dialysis nurses are trying to get him a [facility] dialysis slot. Avoid usual nephrotoxic agents Dose medication for GFR less than 15 2. hyponatremia- improving 3.? 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 DM control per medicine 5. Anemia Hemoglobin 9.3- s/p prbc tx -cont EPO. 6.HTN - avoid ARB/ ARIANNE-I/ ALDACTONE? w/ ALESIA -BP controlled-? 7. replace vit d - pth 140 - no calcitriol or zemplar 8. monitor uric acid Patient seen and examined via telemedicine, with the assistance of the bedside RN > 25 min spent in evaluation and mgmt of patient Status: Acute Plan as above Attestations Medical Necessity Statement*: alesia, left BKA Time Spent in Patient Care: 16 - 35 minutes (>than 50% of time spent in counselling and/or direct pt care on unit). Coding Level of Care Code Acute As400 Consultant for Paula Ho Diagnoses ATN (acute tubular necrosis) N17.0
[2021-04-22 11:12] LABS: Glucose Point of Care 266 mg/dL (70-110)
--- NOTE | 2021-04-22 11:17 | P.PN_ITS ---
Subjective Subjective: Patient is endorsing feeling better, adequate urine output Hemoglobin stable Asked nurse to remove right arm PICC line Did speak with Dr. Horton who is recommending hemodialysis possibly on Mondays and Fridays but edge cutter has to evaluate him before dialysis orders He recommended watching patient for one more day as his creatinine has plateaued and is making good urine, his hyperkalemia has improved there is high chance that we might be able to avoid scheduled dialysis sessions outpatient, tomorrow morning Dr. Norris is stating that he will be able to get him chair time with his group and staying in the hospital one more day will give us a better picture of his kidney function by tomorrow Vitals/I&O/Wt Last Vital Signs Temp 98.4 F 04/22/21 07:56 Pulse 101 H 04/22/21 09:29 Resp 18 04/22/21 09:29 BP 155/87 04/22/21 07:56 Pulse Ox 96 04/22/21 09:29 04/21/21 04/22/21 04/22/21 22:59 06:59 14:59 Intake Total 220 / 700 240 / 240 Output Total 750 / 750 1100 / 1850 Balance -530 / -50 -1100 / -1150 240 / 240 Weight last 48 hrs Weight 120.701 kg Weight 120.519 kg Physical Exam Narrative: Patient was laying flat saturating well on room air Hypervolemic state improved Scrotal edema has improved as well Breathing well on room air S1, S2 Nonfocal neuro exam Right arm PICC line can be removed today Urinary Catheter Management: Martinez: Cath Placed During This Visit: yes, but has since been removed by the nurse Reason for Continuing Indwelling Catheter: Other Urinary Catheter Date of Insertion: 04/17/21 Urinary Catheter Time of Insertion: 16:30 Date Urinary Catheter Removed: 04/15/21 Time Urinary Catheter Discontinued: 18:32 Data : 04/22/21 05:56 04/22/21 05:56 A&P Assessment and plan (1) S/P BKA (below knee amputation): Status: Acute (2) ATN (acute tubular necrosis): Status: Acute (3) Anemia: Status: Acute (4) Foot osteomyelitis, left: Status: Acute (5) Diabetic peripheral neuropathy associated with type 2 diabetes mellitus: Status: Acute (6) Hyperosmolar hyperglycemic state (HHS): Status: Acute Plan ATN related to contrast-induced nephropathy: Kidney function seems to be recovering Creatinine has plateaued, negative fluid balance with Lasix which was given yesterday Dr. Ayala recommended watching him one more day in the hospital, discharge tomorrow with outpatient nephrology follow-up, CM/meeting/event planner Anne assisting us If he ends up needing dialysis this will be done on Mondays and Fridays Anemia secondary to kidney disease status post 3 unit PRBC EPO and iron as per nephro recommendation Left foot emphysematous osteomyelitis status post amputation No postoperative complications Sutures will be removed on Wednesday by Dr. Limon Diabetes: Currently euglycemic Hypervolemia related to kidney failure: Improved, scrotal edema has improved significantly, Martinez catheter can be removed before discharge Dialysis diet DVT prophylaxis has been initiated, Full code Attestations Medical Necessity Statement*: Discharge tomorrow Time Spent in Patient Care: 20 minutes Coding Level of Care Code Acute Surveillance Sensor Operator for g Fwd Diagnoses S/P BKA (below knee amputation) Z89.519 ATN (acute tubular necrosis) N17.0 Anemia D64.9 Foot osteomyelitis, left M86.9 Diabetic peripheral neuropathy associated with type 2 diabetes mellitus E11.42 Hyperosmolar hyperglycemic state (HHS) E11.00; E11.65
[2021-04-22] MEDS: insulin lispro 100 unit/1 mL SUBCUT ×3 (14:17→21:38)
--- NOTE | 2021-04-22 16:29 | P.PN_ITS ---
Subjective Subjective: Patient is having improved urine output and has not had dialysis for 2 days now Vitals/I&O/Wt Last Vital Signs Temp 98.6 F 04/22/21 15:45 Pulse 99 04/22/21 15:45 Resp 18 04/22/21 15:45 BP 166/89 04/22/21 15:45 Pulse Ox 92 04/22/21 15:45 04/22/21 04/22/21 04/22/21 06:59 14:59 22:59 Intake Total 600 / 600 Output Total 1100 / 1850 Balance -1100 / -1150 600 / 600 Weight last 48 hrs Weight 266 lb 1.6 oz Weight 265 lb 11.2 oz Physical Exam Narrative: Right neck: Tunneled IJ dialysis catheter in place Left BKA stump: Incision clean dry and intact Urinary Catheter Management: Martinez: Cath Placed During This Visit: yes, but has since been removed by the nurse Reason for Continuing Indwelling Catheter: Other Urinary Catheter Date of Insertion: 04/17/21 Urinary Catheter Time of Insertion: 16:30 Date Urinary Catheter Removed: 04/15/21 Time Urinary Catheter Discontinued: 18:32 Data : 04/22/21 05:56 04/22/21 05:56 A&P Assessment and plan (1) S/P BKA (below knee amputation): Status post BKA for emphysematous osteomyelitis, doing well Daily dressing change with ABD, Kerlix, Sylvester wrap Continue PT Status: Acute (2) Acute renal failure superimposed on stage 3b chronic kidney disease: Status post tunneled dialysis catheter placement, doing well Awaiting for acceptance for dialysis center prior to discharge Status: Acute Attestations Medical Necessity Statement*: As per primary Coding Level of Care Code Acute Agricultural Service Technician for [facility] Fwd Diagnoses S/P BKA (below knee amputation) Z89.519 Acute renal failure superimposed on stage 3b chronic kidney disease N17.9; N18.32
[2021-04-22 16:54] LABS: Glucose Point of Care 241 mg/dL (70-110)
[2021-04-22 21:58] LABS: Glucose Point of Care 194 mg/dL (70-110)
[2021-04-23 04:00] VITALS: BP 164/80; PULSE 90; RESP 18; TEMP 36.6; O2SAT 95
[2021-04-23] MEDS: heparin 5,000 unit/mL INJ 1 mL 5000 UNIT SUBCUT (05:44)
[2021-04-23 06:15] LABS: Basophils % 0.3 %; Eosinophils # 0.1 10^3/uL (0.0-0.8); Eosinophils % 1.8 %; Hematocrit 28.3 % (42.0-52.0); Lymphocytes # 0.9 10^3/uL (0.8-4.8); Lymphocytes % 15.4 %; Mean Corpuscular HGB Conc 31.8 g/dL (30.0-36.0); Mean Corpuscular Hemoglobin 28.1 pg (28.0-34.0); Mean Corpuscular Volume 88.4 fl (80-94); Monocytes # 0.7 10^3/uL (0.2-0.9); Monocytes % 12.2 %; Neutrophils # 4.24 10^3/uL (1.8-7.7); Neutrophils % 69.6 %; Nucleated Red Blood Cells % 0 %; Platelet Count 256 10^3/cmm (130-400); Red Cell Distribution Width 14.6 % (12.1-15.1); White Blood Count 6.1 10^3/uL (4.0-10.0)
[2021-04-23 06:33] LABS: Alanine Aminotransferase 18 U/L (0-41); Albumin Level 3.4 g/dL (3.5-5.2); Alkaline Phosphatase 85 IU/L (40-130); Aspartate Amino Transferase 19 U/L (0-40); Blood Urea Nitrogen 62 mg/dL (6-20); Calcium 8.7 mg/dL (8.5-10.5); Carbon Dioxide 25 mmol/L (22-29); Chloride 99 mmol/L (98-107); Globulin 2.7 g/dL (1.3-4.6); Glomerular Filtration Rate 13.5 mL/min (90-130); Glucose 111 mg/dL (65-115); Magnesium 2.1 mg/dL (1.7-2.3); Osmolality Calculated 300 mOsm/kg (285-295); Phosphorus 4.8 mg/dL (2.5-4.5); Sodium 136 mmol/L (136-145); Total Bilirubin 0.4 mg/dL (0.15-1.2); Total Protein 6.1 g/dL (6.6-8.7); Uric Acid 5.9 mg/dL (3.4-7.0)
[2021-04-23 06:35] LABS: Anion Gap 16.7 (5-19); Potassium 4.7 mmol/L (3.5-5.1)
[2021-04-23 06:56] LABS: Glucose Point of Care 146 mg/dL (70-110)
[2021-04-23 08:00] VITALS: BP 181/81; PULSE 96; RESP 18; TEMP 36.9; O2SAT 94
[2021-04-23] MEDS: allopurinol 100 mg Tablet PO (09:26)
[2021-04-23] MEDS: pantoprazole DR 40 mg Tablet PO (09:26)
[2021-04-23] MEDS: hyDRALAzine 50 mg Tablet PO (09:26)
[2021-04-23] MEDS: metoprolol tartrate 25 mg Tablet PO (09:26)
[2021-04-23] MEDS: oxybutynin 5 mg Tablet PO (09:26)
[2021-04-23] MEDS: insulin lispro 100 unit/1 mL SUBCUT (09:26)
[2021-04-23] MEDS: amlodipine 5 mg Tablet PO (09:26)
[2021-04-23] MEDS: insulin glargine 100 units/1 mL 18 UNIT SUBCUT (09:27)
--- NOTE | 2021-04-23 09:33 | P.PN_ITS ---
Subjective Subjective: urinating. feels well. swollen Medications: Reviewed: Yes Medication Review Details: Current Medications Albuterol/Ipratropium (Ipratropium-Albuterol 3 Ml Neb) 3 ml INHALATION Q6H.RESPIRATORY PRN PRN Reason: SHORTNESS OF BREATH Allopurinol (Allopurinol 100 Mg Tablet) 100 mg PO DAILY [facility] Last Admin: 04/22/21 08:34 Dose: 100 mg Documented by: Amlodipine Besylate (Amlodipine 5 Mg Tablet) 5 mg PO DAILY [facility] Lidocaine HCl 1.667 ml/Diphenhydramine HCl 4.165 mg/Al Hydrox/Mg Hydrox/Sim ethicone 1.667 ml 0 ml MUCOUS MEM Q4H PRN PRN Reason: MOUTH PAIN Last Admin: 04/06/21 17:33 Dose: 7.5 ml Documented by: Heparin Sodium (Porcine) (Heparin 5,000 Unit/Ml Inj 1 Ml) 5,000 unit SUBCUT Q8H [facility] Last Admin: 04/23/21 05:44 Dose: 5,000 unit Documented by: Hydralazine HCl (Hydralazine 20 Mg/Ml Inj 1 Ml) 5 mg IVP Q4H PRN PRN Reason: sbp>180 Last Admin: 04/15/21 15:00 Dose: 5 mg Documented by: Hydralazine HCl (Hydralazine 50 Mg Tablet) 50 mg PO TID [facility] Last Admin: 04/22/21 20:55 Dose: 50 mg Documented by: Insulin Glargine (Insulin Glargine 100 Units/1 Ml) 18 unit SUBCUT BID@0900,2100 [facility] Last Admin: 04/22/21 21:38 Dose: 18 unit Documented by: Insulin Human Lispro (Insulin Lispro 100 Unit/1 Ml) 0 unit SUBCUT WM&BEDTIME [facility]; Protocol Last Admin: 04/22/21 21:38 Dose: 4 unit Documented by: Metoprolol Tartrate (Metoprolol Tartrate 25 Mg Tablet) 25 mg PO BID@0900,2100 [facility] Last Admin: 04/22/21 20:55 Dose: 25 mg Documented by: Oxybutynin Chloride (Oxybutynin 5 Mg Tablet) 5 mg PO TID [facility] Last Admin: 04/22/21 20:55 Dose: 5 mg Documented by: Pantoprazole Sodium (Pantoprazole Dr 40 Mg Tablet) 40 mg PO Q12H [facility] Last Admin: 04/22/21 20:55 Dose: 40 mg Documented by: Vitals/I&O/Wt Last Vital Signs Temp 98.4 F 04/23/21 08:00 Pulse 96 04/23/21 08:00 Resp 18 04/23/21 08:00 BP 181/81 04/23/21 08:00 Pulse Ox 94 04/23/21 08:00 04/22/21 04/23/21 04/23/21 22:59 06:59 14:59 Intake Total 360 / 960 300 / 1260 480 / 480 Output Total 1300 / 1300 1000 / 2300 Balance -940 / -340 -700 / -1040 480 / 480 Weight last 48 hrs Weight 119.805 kg Weight 120.701 kg Physical Exam Narrative: comfortable, NARD, in bed vss heent- nc/at, eom, swolleni neck no jvp, rt ij dialysis catheter lung - good air movement b/l heart reg, no rub abd soft, nt, nd, + bs ext LLE? BKA, b/l 2+ edema neuro a,a, o x 3 Urinary Catheter Management: Martinez: Cath Placed During This Visit: yes, but has since been removed by the nurse Reason for Continuing Indwelling Catheter: Acute Urinary Retention or Obstruction Urinary Catheter Date of Insertion: 04/17/21 Urinary Catheter Time of Insertion: 16:30 Date Urinary Catheter Removed: 04/15/21 Time Urinary Catheter Discontinued: 18:32 Data : 04/23/21 05:58 04/23/21 05:58 A&P Assessment and plan (1) ATN (acute tubular necrosis): 1.? Acute kidney injury Differential diagnosis includes contrast nephropathy, infection mediated or myelopathy, acute interstitial nephritis. Permacath placed - cr stable- will give lasix and hold HD and monitor for renal recovery -if discharged- needs to go to dialysis 2 x/ week and monitor for renal recovery or needs an outpt Renal f/u w/in 5 days of d/c Avoid usual nephrotoxic agents Dose medication for GFR less than 15 2. 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 DM control per medicine 4. Anemia Hemoglobin 9.0- s/p prbc tx -cont EPO. 6.HTN - avoid ARB/ ARIANNE-I/ ALDACTONE? w/ ALESIA -BP elevated? 7. replace vit d - pth 140 - no calcitriol or zemplar 8. monitor uric acid -now normal 5.9 Patient seen and examined via telemedicine, with the assistance of the bedside RN > 25 min spent in evaluation and mgmt of patient Status: Acute Plan as above Attestations Medical Necessity Statement*: edema, alesia, bka Time Spent in Patient Care: 16 - 35 minutes (>than 50% of time spent in counselling and/or direct pt care on unit) . Coding Level of Care Code Acute Roll Up Operator for Paula Ho Diagnoses ATN (acute tubular necrosis) N17.0
[2021-04-23 11:51] VITALS: BP 162/77; PULSE 86; RESP 18; TEMP 36.7; O2SAT 97
[2021-04-23 12:00] VITALS: BP 162/77; PULSE 86; RESP 18; TEMP 36.7; O2SAT 97
--- NOTE | 2021-04-23 12:16 | P.DS_ITS ---
Discharge Providers Date of Admission: 03/26/21 04:27 Date of Discharge: April 16, 2021 Attending Provider at Admission: Jp Moore MD Attending Provider at Discharge: Woodrow Metzger MD Primary Care Provider: MARK Kilpatrick Diagnoses at Discharge Discharge Diagnosis (1) S/P BKA (below knee amputation): Status: Acute (2) Acute renal failure superimposed on stage 3b chronic kidney disease: Status: Acute Reason for Visit Reason for Visit: n/v; sob; abd discomfort Hospital Course Hospital Course Patient was admitted on 03/25 for management of hyperglycemia hyperosmolar state, no DKA, he spent his initial days in the ICU, his left foot diabetic ulcer was evaluated by general surgery because of excessive emphysematous changes (2 weeks prior to his admission he had debridement by Dr. Vidal), because of worsening of leukocytosis and emphysematous changes evident on the MRI of the foot antibiotics were escalated however his edema and leukocytosis were worsening, after extensive discussion decision was made to do amputation, patient agreed for the suggested plan, patient and his were on board with left BKA. Status post left BKA 04/05 since then leukocytosis has improved, IV antibiotics were continued for about 5 to 6 days and then deescalated to p.o. Augmentin and doxycycline. He can discontinue taking antibiotics at the time of discharge. He did develop contrast-induced nephropathy and required placement of temporary dialysis catheter. He was oliguric in the beginning, he also required 3 units of PRBC for drop in hemoglobin however no active bleeding was noted, FOBT negative, no active hematoma hemoptysis or hematemesis. Most likely related to iron deficiency anemia and acute kidney injury. Permanent dialysis catheter was placed by Dr. Limon on 04/15, patient will be discharged home with wound care and outpatient follow-up with Dr. Limon. I will give him Lantus 17 units twice daily because at 20 units twice daily he has been getting hypoglycemic in the morning, will add hydralazine, metoprolol and lisinopril for hypertension, add bicarb tablets to be taken 3 times a day, iron supplementation with bowel regimen. He is not requiring any oxygen. He is having regular bowel movements. He does have scrotal edema for which I will give him Lasix regimen. His scrotal edema has improved without needing dialysis, will remove his Martinez catheter and PICC line. Arrangements have been made to see Dr. Davalos in [place], Dr. Horton recommended hemodialysis Mondays and Wednesday and continuous monitoring to discontinue dialysis in next 2 to 3 weeks as he has made significant progress, he has started making good amount of urine, resistant hypervolemia started responding 4 to 5 days before his discharge from the hospital without needing any dialysis. Dr. Limon planning to remove sutures before discharge. Hemoglobin at discharge 9 Creatinine at discharge 4.5 which has plateaued in last 4 days creatinine has been hovering around 4.4, urine output in last 24 hours 2300 mL with -1 L balance, afebrile, doing well on room air Physical Exam Narrative: Anasarca improved Cardiac: Normal S1-S2 without murmurs clicks gallops or rubs Lungs: Clear to auscultation and anteriorly Abdomen: Distended but soft to palpation no rebound rigidity or guarding nontender. Extremities: Scrotal edema has improved significantly, mild edema still present, 1+ edema of leg now Neurologic: Alert oriented to person place time and situation Urinary Catheter Management: Martinez: Cath Placed During This Visit: yes, but has since been removed by the nurse Reason for Continuing Indwelling Catheter: Decision to DC Catheter Urinary Catheter Date of Insertion: 04/06/21 Urinary Catheter Time of Insertion: 09:52 Date Urinary Catheter Removed: 04/15/21 Time Urinary Catheter Discontinued: 18:32 Discharge Data Studies Completed and Pending Completed Studies During Hospitalization Category Date Time Status CT abdomen pelvis w con* [id number] Urgent Cat Scan 03/25/21 20:[address] abdomen pelvis wo con [id number] Routine Cat Scan 03/30/21 10:[address] foot LT wo con* [id number] Routine Cat Scan 03/26/21 11:[address] foot LT wo con* [id number] Urgent Cat Scan 03/30/21 10:17 Completed CXRIE [XR chest 2V insp/exp [id number]] Routine Exams 04/07/21 09:29 Completed CXRP [XR chest 1V portable 97731] Routine Exams 04/04/21 17:08 Completed CXRP [XR chest 1V portable [id number]] Stat Exams 04/08/21 16:12 Completed XR chest 1V portable [id number] Routine Exams 04/04/21 17:32 Completed XR chest 1V portable [id number] Routine Exams 04/10/21 20:42 Completed XR chest 1V portable [id number] Stat Exams 03/29/21 15:18 Completed XR foot LT 2V 36475 Routine Exams 03/29/21 15:21 Completed XR foot LT min 3V* [id number] Routine Exams 04/03/21 17:17 Completed MR foot LT wo con* [id number] Urgent MRI 04/03/21 14:30 Completed Pathology: Surgical [PTH] Routine Pth 04/05/21 10:32 [place] [id number] Routine Ultrasound 03/27/21 18:22 [place] [id number] Routine Ultrasound 03/28/21 07:12 [place] [id number] Routine Ultrasound 04/09/21 Completed Radiology Impressions Abdomen/Pelvis CT 03/30/21 10:08 IMPRESSION: 1. Nonspecific small volume free fluid in the abdomen and pelvis. 2. Mild circumferential wall thickening of the distal esophagus which may relate to reflux esophagitis. 3. Prominent left inguinal lymph nodes with normal morphology, likely reactive. 4. Bilateral small volume pleural effusions. Foot CT 03/30/21 10:17 IMPRESSION: Extensive subcutaneous emphysema and edema centered within the midfoot and forefoot. Air is also seen within the bases of the 2nd through 4th metatarsals, cuneiforms, cuboid, and navicular bones suggestive of extensive osteomyelitis. An MRI of the foot would provide more sensitive evaluation as to the extent of the osteomyelitis. Please note, evaluation for abscess is limited without IV contrast. Foot MRI 04/03/21 14:30 IMPRESSION: 1. Diffuse soft tissue infection and cellulitis involving the left foot extending into the deep soft tissues and intertarsal compartments. Diffuse involvement of the extensor and flexor retinaculum and associated compartments. 2. No well-defined drainable fluid collection. 3. Replacement of the normal bone marrow signal compatible with osteomyelitis worse involving the base of fifth metatarsal with bony destruction. 4. Evidence of emphysematous osteomyelitis involving the second third and fourth metatarsal extending into the metatarsal shafts. 5. Metatarsal heads appear relatively spared. First metatarsal appears normal. 6. Evidence of emphysematous osteomyelitis involving the medial, intermediate, and lateral cuneiforms, cuboid, and navicular. Notified Woodrow Metzger MD at 04/03/2021 4:06 PM. Foot X-Ray 04/03/21 17:17 IMPRESSION: 1. Cellulitis and infectious process within the soft tissues centered over the midfoot and extending laterally to the metatarsals over the ankle. Increased air suggesting interval debridement along with the extensive soft tissue infection. The soft tissue involvement appears slightly improved with less edema since 03/29/2020. 2. Lucency in several of the proximal metatarsals consistent with osteomyelitis. Osteomyelitis was better described on MRI from 04/03/2021. Chest X-Ray 04/10/21 20:42 IMPRESSION: There is an increasing area of lung opacity adjacent to the right lateral ventricle. New hazy lung opacities in both lower lung alves. This may be pulmonary edema. Pneumonitis not readily excluded. C-Arm Fluoroscopy 04/15/21 11:31 IMPRESSION: Dialysis catheter placement as above. Laboratory Results WBC 12.5 10^3/uL (4.0-10.0) H 04/14/21 02:23 Corrected WBC Cancelled 03/28/21 03:33 RBC 3.43 10^6/uL (4.1-5.3) L 04/14/21 02:23 Hgb 9.6 g/dL (11.7-16.6) L 04/14/21 02:23 Hct 29.7 % (42.0-52.0) L 04/14/21 02:23 MCV 86.6 fl (80-94) 04/14/21 02:23 MCH 28.0 pg (28.0-34.0) 04/14/21 02:23 MCHC 32.3 g/dL (30.0-36.0) 04/14/21 02:23 RDW 14.6 % (12.1-15.1) 04/14/21 02:23 Plt Count 304 10^3/cmm (130-400) 04/14/21 02:23 MPV 8.2 fL (7.4-10.4) 04/14/21 02:23 Gran % Cancelled 03/28/21 03:33 Neut % (Auto) 82.6 % 04/14/21 02:23 Lymph % (Auto) 8.0 % 04/14/21 02:23 Glascock % (Auto) 8.4 % 04/14/21 02:23 Eos % (Auto) 0.2 % 04/14/21 02:23 Baso % (Auto) 0.0 % 04/14/21 02:23 Neut # (Auto) 10.33 10^3/uL (1.8-7.7) H 04/14/21 02:23 Lymph # (Auto) 1.0 10^3/uL (0.8-4.8) 04/14/21 02:23 Glascock # (Auto) 1.1 10^3/uL (0.2-0.9) H 04/14/21 02:23 Eos # (Auto) 0.0 10^3/uL (0.0-0.8) 04/14/21 02:23 Baso # (Auto) 0.0 10^3/uL (0.0-0.1) 04/14/21 02:23 Absolute Gran (auto) Cancelled 03/28/21 03:33 Nucleated RBC % (auto) 0 % 04/14/21 02: Nucleated RBCs # 0.0 /100WBC 04/14/21 02:23 ESR 64 mm/hr (0-10) H 04/04/21 06:28 D-Dimer 4.20 ug/mIFEU (0-0.59) H 03/28/21 03:33 Specimen Type Arterial 03/31/21 10:05 Sample Site Radial, right 03/31/21 10:05 ABG pH 7.37 (7.35-7.45) 03/31/21 10:05 ABG pCO2 27.8 mmHg (35-45) L 03/31/21 10:05 ABG pO2 79.4 mmHg (80.0-100.0) L 03/31/21 10:05 ABG HCO3 15.9 mmol/L (22-26) L 03/31/21 10:05 ABG O2 Saturation 96.5 03/31/21 10:05 ABG Base Excess -8.1 mmol/L (-2.0-2.0) L 03/31/21 10:05 Bj Test Pos 03/31/21 10:05 A-a O2 Gradient 4.3 mmHg (5-10) L 03/31/21 10:05 Hematocrit 36.7 % (42-52) L 03/31/21 10:05 Hgb O2 Saturation 94.6 % (95-100) L 03/31/21 10:05 Carboxyhemoglobin 0.8 %THgb (0.4-20.1) 03/31/21 10:05 Methemoglobin 1.2 % (0.4-1.5) 03/31/21 10:05 Total Hemoglobin 12.0 g/dL (14-18) L 03/31/21 10:05 Sodium 127.0 mmol/L (131-143) L 03/31/21 10:05 Potassium 3.2 mmol/L (3.5-5.0) L 03/31/21 10:05 Glucose 211.0 mg/dL (70-115) H 03/31/21 10:05 Ionized Calcium 1.1 mmol/L (1.1-1.4) 03/31/21 10:05 O2 Delivery Device Room air 03/31/21 10:05 FiO2 21.0 % 03/25/21 21:12 Silver Chaser ID Gd 03/31/21 10:05 Sodium 138 mmol/L (136-145) 04/16/21 05:26 Potassium 4.7 mmol/L (3.5-5.1) 04/16/21 05:26 Chloride 102 mmol/L (98-107) 04/16/21 05:26 Carbon Dioxide 23 mmol/L (22-29) 04/16/21 05:26 Anion Gap 17.7 (5-19) 04/16/21 05:26 BUN 65 mg/dL (6-20) H 04/16/21 05:26 Creatinine 4.0 mg/dL (0.7-1.2) H 04/16/21 05:26 GFR Calculation 15.5 mL/min (90-130) L 04/16/21 05:26 Glucose 93 mg/dL (65-115) 04/16/21 05:26 POC Glucose 84 mg/dL (70-110) 04/16/21 06:30 Estimat Average Glucose 341 03/26/21 03:00 Hemoglobin A1c 13.5 % (4.0-6.0) H 03/26/21 03:00 Calculated Osmolality 300 mOsm/kg (285-295) H 04/14/21 02:23 Lactic Acid 2.4 mmol/L (0.5-2.2) H 03/26/21 03:00 Lactic Acid (Sepsis) 1.4 mmol/L (0.5-2.2) 03/26/21 06:51 Lactate 0.7 mmol/L (0.5-2.2) 04/11/21 06:25 Uric Acid 12.9 mg/dL (3.4-7.0) H 04/08/21 04:50 Calcium 8.4 mg/dL (8.5-10.5) L 04/16/21 05:26 Phosphorus 4.1 mg/dL (2.5-4.5) 04/16/21 05:26 Magnesium Cancelled 04/14/21 02:23 Iron 26 ug/dL (59-158) L 04/10/21 04:39 TIBC 85 mcg/dl 04/10/21 04:39 % Saturation 30.5 % (20-50) 04/10/21 04:39 Unsat Iron Binding 59 ug/dL (112-347) L 04/10/21 04:39 Ferritin 539 ng/mL (30-400) H 04/08/21 04:50 Total Bilirubin 0.5 mg/dL (0.15-1.2) 04/11/21 06:25 AST 23 U/L (0-40) 04/11/21 06:25 ALT 8 U/L (0-41) 04/11/21 06:25 Alkaline Phosphatase 69 IU/L (40-130) 04/11/21 06:25 Creatine Kinase 39 U/L (39-308) 04/02/21 04:59 C-Reactive Protein 160.5 mg/L (0.0-4.9) H 04/11/21 06:25 Total Protein 5.8 g/dL (6.6-8.7) L 04/11/21 06:25 Albumin 2.9 g/dL (3.5-5.2) L 04/16/21 05:26 Globulin 2.2 g/dL (1.3-4.6) 04/11/21 06:25 Lipase 11 U/L (13-60) L 03/25/21 18:36 Vitamin B12 787 pg/mL (232-1245) 04/10/21 04:39 25-OH Vitamin D Total 14 ng/mL (30-100) L 04/01/21 05:23 Procalcitonin 2.80 ng/mL (0-0.5) H 04/04/21 06:28 TSH 1.79 uIU/mL (0.27-4.20) 04/01/21 05:23 Urine Color Yellow (Yellow) 03/27/21 20:50 Urine Appearance Clear (CLEAR) 03/27/21 20:50 Urine pH 5 (5-7) 03/27/21 20:50 Ur Specific Thomas 1.025 (1.005-1.030) 03/27/21 20:50 Urine Protein 3+ (Negative) H 03/27/21 20:50 Urine Glucose (UA) 4+ (Normal) H 03/27/21 20:50 Urine Ketones 1+ (Negative) H 03/27/21 20:50 Urine Blood 3+ (Negative) H 03/27/21 20:50 Urine Nitrate Negative (Negative) 03/27/21 20:50 Urine Bilirubin Neg (Negative) 03/27/21 20:50 Urine Urobilinogen Norm mg/dL (Negative) 03/27/21 20:50 Ur Leukocyte Esterase Negative (Negative) 03/27/21 20:50 Urine RBC 50-80 /hpf (0-2) H 03/27/21 20:50 Urine WBC 0-4 /hpf (0-5) H 03/27/21 20:50 Ur Squamous Epith Cells 0-4 /hpf (0-5) H 03/27/21 20:50 Amorphous Sediment 1+ /hpf 03/27/21 20:50 Urine Bacteria 1+ /hpf (NONE) H 03/27/21 20:50 Coarse Granular Casts 0-4 /lpf H 03/27/21 20:50 Urine Yeast 1+ /hpf H 03/27/21 20:50 Ur Random Microalbumin 425 ug/dL (0-20) H 03/30/21 12:00 Ur Random Sodium 12 mmol/L 03/31/21 12:15 Ur Random Potassium 26 mmol/L 03/31/21 12:15 Ur Random Chloride 20 mmol/L 03/31/21 12:15 Urine Creatinine 216 mg/dL (39-259) 03/30/21 12:00 Urine Creatinine 216 mg/dL (39-259) 03/30/21 12:00 Microalb/Creat Ratio 1968 mg/dL (0-20) H 03/30/21 12:00 Vancomycin Trough 21.8 ug/mL (10-15) H 03/28/21 12:40 Ethyl Alcohol < 10 mg/dL (0-10) 03/25/21 20:03 Serum Ketones Negative (Negative) 03/25/21 18:36 Hep Bs Antigen Non-reactive (Nonreactive) 04/08/21 14:48 Hep Bs Antibody 3.5 (11.5-1000) L 04/08/21 14:48 Hepatitis C Antibody Non-reactive (Nonreactive) 04/08/21 14:48 Blood Type A Positive 04/09/21 11:58 Rho(D) Type Positive 04/09/21 11:58 Antibody Screen Negative 04/09/21 11:58 Crossmatch See Detail 04/09/21 11:58 Vitals Last Vital Signs Temp 98.5 F 04/16/21 08:00 Pulse 105 H 04/16/21 12:00 Resp 18 04/16/21 12:00 BP 186/89 04/16/21 12:00 Pulse Ox 96 04/16/21 12:00 Discharge Plan Discharge Patient Disposition: Home Condition: Stable Prescriptions: New Reglan 5 mg tablet 5 mg PO DAILY Qty: 30 0RF Zofran 4 mg tablet 4 mg PO Q8H 10 Days Qty: 30 0RF lisinopril 20 mg tablet 20 mg PO DAILY Qty: 60 1RF Humalog KwikPen Insulin 100 unit/mL insulin pen See Rx Instructions .ROUTE .COMPLEX Qty: 15 5RF Rx Instructions: sliding sclae Levemir FlexTouch U-100 Insuln 100 unit/mL (3 mL) insulin pen 17 unit SUBCUT BID Qty: 15 8RF metoprolol tartrate 25 mg tablet 25 mg PO BID Qty: 60 0RF oxycodone 5 mg tablet 5 mg PO TID PRN (Reason: pain) Qty: 20 0RF Senna-Time S 8.6-50 mg tablet 1 tab-cap PO DAILY Qty: 20 0RF hydralazine 10 mg tablet 10 mg PO TID Qty: 90 0RF sodium bicarbonate 650 mg tablet 650 mg PO TID Qty: 90 2RF Iron (ferrous sulfate) 325 mg (65 mg iron) tablet 325 mg PO .qother day Qty: 90 3RF Lasix 20 mg tablet 20 mg PO DAILY Qty: 60 0RF Continued aspirin [Adult Aspirin Regimen] 81 mg tablet,delayed release (DR/EC) 81 mg PO DAILY 0RF (DME) FreeStyle Julius 2 Sensor Kit See Rx Instructions .ROUTE .MEDSUPPLY Qty: 1 3RF Rx Instructions: Apply one sensor and change every 14 days. 2 sensors per 28 days Byetta 10 mcg/dose(250 mcg/mL) 2.4 mL pen injector 10 mcg SUBCUT DAILY 0RF Rx Instructions: 340b albuterol sulfate 90 mcg/actuation HFA aerosol inhaler 1 inh inhalation QID PRN (Reason: shortness of breath or wheezing) Qty: 8.5 3RF Humalog KwikPen Insulin 100 unit/mL insulin pen See Rx Instructions .ROUTE .COMPLEX 0RF Rx Instructions: sliding scale tid Jardiance 10 mg tablet 10 mg PO DAILY 0RF Discontinued lisinopril 10 mg tablet 10 mg PO DAILY 0RF Levemir FlexTouch U-100 Insuln 100 unit/mL (3 mL) insulin pen 25 unit SUBCUT BID 0RF Discharge Orders: Discharge Order (Routine); Ordered 04/23/21 Ordered By: Woodrow Metzger Other Ambulatory Orders: DME: Wheelchair (Order) Location: None Selected Ordered By: Woodrow Metzger Referrals: [facility] [Other] (Please arrive for first outpatient dialysis treatment on 04/24/2021 at 1:15pm. You need to arrive early your first day for paperwork. Your normal dialysis schedule is , , and Sat at 1:40pm. You will be followed by Dr. Davalos at this clinic. ) Dr. Brennon Davalos [Other] (This is the office number for Dr Davalos in case you need that but should be able to communicate through dialysis clinic with provider for further orders. ) Sarika Corbin FNP [Primary Care Provider] - 04/30/21 10:30 am Sergo Limon MD [Physician] - 04/25/21 11:00 am [facility], [Staff Physician] - 04/23/21 10:45 am Discharge Diet: Diabetic Discharge Activity: As per PT/OT instructions Patient Instructions: Iron Supplements (By mouth) (Duofer, Fe-20, Bifera, James- Iron), Metoprolol (By mouth) (Lopressor, Toprol XL), Furosemide (By mouth), Metoclopramide (By mouth), Hydralazine (By mouth), Oxycodone, Rapid Release (By mouth), Insulin Detemir (By injection) (Levemir, Levemir FlexPen, Levemir..., Insulin Lispro (By injection) (HumaLOG, HumaLOG Pen, Lispro-PFC,..., Diabetic Gastroparesis (DC), Surgical Site Infections (DC), Below the Knee Amputation (DC), Opioid Safety Activity Restrictions/Additional Instructions: - needs to go to dialysis 2 x/ week and monitor for renal recovery or needs an outpt Renal f/u w/in 5 days of d/c DR DAVALOS WILL SEE YOU TECHNICAL SUPPORT MANAGER Blood Sugar Low Dose 60 ? 110 No insulin 111 ? 150 2 units 151 ? 200 4 units 201 ? 250 6 units 251 ? 300 8 units 301 ? 350 10 units Activity Avoid strenuous activity for 2 weeks but continue with daily activities including walking as tolerated. Do not lift more than 10 pounds for 2 weeks Shower It is ok to shower but avoid getting the dialysis catheter wet. Do not soak in bathtub, swimming pool or hot tub for 2 weeks. Wound care Keep incision clean and dry. Cover with ABDs, Kerlix and Sylvester wrap once daily and use the knee immobilizer as per physical therapy recommendations. Ensure adequate padding to prevent pressure ulcers from knee immobilizer. Problems with the wound: you can develop some redness around the incision from bruising after surgery. If there is increasing pain, redness, tenderness around the incision with or without drainage, please contact my office to rule out an infection. Sometimes the skin at the incisions can separate, resulting in reopening of the wound. Cover the wound with antibiotic cream and sterile dressings and contact my office. Contact physician Call the office at [phone] during office hours or go the Emergency Room ?Fever to 100.4 or greater ?Shaking chills ?Pain that increases over time ?Redness, warmth, or pus draining from incision sites ?Persistent nausea or inability to take in liquids Discharge Attestations Time Spent in Discharge Care*: less than 30 min Status at Discharge: Cognitive status at discharge: cognitively intact , Behavioral status at discharge: cooperative , Quality Metrics Clinical Quality Measures [ No reported AMI, CVA or VTE this stay] Coding Level of Care Code Acute Chg FW DC note Diagnoses S/P BKA (below knee amputation) Z89.519 Acute renal failure superimposed on stage 3b chronic kidney disease N17.9; N18.32
[2021-04-23] MEDS: FUROsemide 10 mg/mL SDV 10mL 60 MG IVP (12:17)
[2021-04-23 12:46] LABS: Glucose Point of Care 114 mg/dL (70-110)
[2021-04-23 15:27] VITALS: BP 162/77; PULSE 86; RESP 18; TEMP 36.7; O2SAT 97
--- NOTE | 2021-04-23 15:40 | PM.PN ---
Subjective Subjective: Patient is going home today, denies any neck pain or left BKA stump pain Vitals/I&O/Wt Last Vital Signs Temp 98.1 F 04/23/21 15:27 Pulse 86 04/23/21 15:27 Resp 18 04/23/21 15:27 BP 162/77 04/23/21 15:27 Pulse Ox 97 04/23/21 15:27 04/23/21 04/23/21 04/23/21 06:59 14:59 22:59 Intake Total 300 / 1260 480 / 480 Output Total 1000 / 2300 1800 / 1800 Balance -700 / -1040 -1320 / -1320 Weight last 48 hrs Weight 264 lb 2 oz Weight 266 lb 1.6 oz Physical Exam Narrative: Right neck: Tunneled IJ hemodialysis catheter in place Left BKA stump: Incision well-healed, minnie were removed today Urinary Catheter Management: Martinez: Cath Placed During This Visit: yes, but has since been removed by the nurse Reason for Continuing Indwelling Catheter: Acute Urinary Retention or Obstruction Urinary Catheter Date of Insertion: 04/17/21 Urinary Catheter Time of Insertion: 16:30 Date Urinary Catheter Removed: 04/15/21 Time Urinary Catheter Discontinued: 18:32 Data : 04/23/21 05:58 04/23/21 05:58 A&P Assessment and plan (1) S/P BKA (below knee amputation): Status post BKA for emphysematous osteomyelitis, doing well Minnie removed today Continue PT Follow-up 3 weeks Status: Acute (2) Acute renal failure superimposed on stage 3b chronic kidney disease: Status post tunneled dialysis catheter placement, doing well DC home today Status: Acute Attestations Medical Necessity Statement*: As per primary Coding Level of Care Code Acute Diamond Picker for g Fwd Diagnoses S/P BKA (below knee amputation) Z89.519 Acute renal failure superimposed on stage 3b chronic kidney disease N17.9; N18.32
--- NOTE | 2021-04-23 16:14 | PC.SOCIAL ---
Humalog is not covered under insurance per pharmacy. Per Dr Yassine gutierrez to switch to formulary Novolog same instructions. PHarmacist repeated order back to clarify ran script and is covered.
== END 2021-04-23 15:28 | disposition home health service (06) | DRG 616 ==
LOC: ER 23:06 → ER IP 03-26 07:15 → ICU 03-26 17:44 → MEDSURG 03-31 20:51
PROVIDERS: Internal Medicine; Internal Medicine Nephrology; Physician Assistant; Surgery; Admitting Provider Internal Medicine; Emergency Provider Emergency Medicine; PCP Nurse Practitioner Family; Visit Provider Internal Medicine
PROC: 0K9W0ZZ Drainage of Left Foot Muscle, Open Approach (ICD-10-PCS; principal; 2021-03-30 14:45)
PROC: 0Y6J0Z1 Detachment at Left Lower Leg, High, Open Approach (ICD-10-PCS; CPT 27880; principal; 2021-04-05 08:00)
DX: E11.00 Type 2 diabetes mellitus with hyperosmolarity without nonketotic hyperglycemic-hyperosmolar coma (NKHHC) (principal); N17.0 Acute kidney failure with tubular necrosis; L02.612 Cutaneous abscess of left foot; M86.172 Other acute osteomyelitis, left ankle and foot; N39.0 Urinary tract infection, site not specified; L03.116 Cellulitis of left lower limb; E11.43 Type 2 diabetes mellitus with diabetic autonomic (poly)neuropathy; E11.40 Type 2 diabetes mellitus with diabetic neuropathy, unspecified; E11.51 Type 2 diabetes mellitus with diabetic peripheral angiopathy without gangrene; E11.22 Type 2 diabetes mellitus with diabetic chronic kidney disease; E11.69 Type 2 diabetes mellitus with other specified complication; E11.628 Type 2 diabetes mellitus with other skin complications; E11.621 Type 2 diabetes mellitus with foot ulcer; K31.84 Gastroparesis; I12.9 Hypertensive chronic kidney disease with stage 1 through stage 4 chronic kidney disease, or unspecified chronic kidney disease; N18.32 Chronic kidney disease, stage 3b; Q66.70 Congenital pes cavus, unspecified foot; E78.2 Mixed hyperlipidemia; E66.9 Obesity, unspecified; Z68.39 Body mass index [BMI] 39.0-39.9, adult; Z79.82 Long term (current) use of aspirin; Z79.4 Long term (current) use of insulin; B95.1 Streptococcus, group B, as the cause of diseases classified elsewhere; E87.6 Hypokalemia; N14.1 Nephropathy induced by other drugs, medicaments and biological substances; T50.8X5A Adverse effect of diagnostic agents, initial encounter; T38.3X6A Underdosing of insulin and oral hypoglycemic [antidiabetic] drugs, initial encounter; R00.0 Tachycardia, unspecified; E86.0 Dehydration; K20.90 Esophagitis, unspecified without bleeding; Z89.421 Acquired absence of other right toe(s)
CPT/HCPCS: 36415; 36416; 36430; 36569; 36592; 36600; 51702; 51798; 64447; 71045; 71046; 73620; 73630; 73700; 73718; 74176; 74177; 76000; 76942; 77001; 80048; 80051; 80053; 80069; 80202; 80307; 81001; 82009; 82044; 82274; 82306; 82310; 82330; 82436; 82550; 82570; 82607; 82728; 82805; 82962; 83036; 83540; 83550; 83605; 83690; 83735; 83970; 84100; 84133; 84145; 84300; 84443; 84550; 85014; 85018; 85025; 85378; 85651; 86140; 86704; 86706; 86803; 86850; 86900; 86920; 87040; 87070; 87075; 87086; 87205; 87340; 87493; 87641; 88307; 88311; 93926; 93970; 93971; 94640; 94664; 96365; 96366; 96367; 96372; 96375; 96376; 97110; 97161; 97530; 99285; C1750; C1752; C9113; J0360; J0610; J0690; J0692; J0743; J1170; J1200; J1644; J1650; J1815 ×2; J1940; J2020; J2270; J2370; J2405; J2543; J2704; J2710; J2765; J2920; J2930; J3010; J3370; J3480; J3490; J7030; J7040; J7050; L4360; P9016; P9041; P9047; Q3014; Q4081; Q9967; S0030

== ENCOUNTER 2021-05-06 11:59 | Outpatient (CLI) | payer OTHER, SELFPAY ==
[2021-05-06 12:47] LABS: Basophils % 0.4 %; Eosinophils % 0.1 %; Hemoglobin 10.9 g/dL (11.7-16.6); Lymphocytes # 0.8 10^3/uL (0.8-4.8); Lymphocytes % 9.6 %; Mean Corpuscular HGB Conc 31.1 g/dL (30.0-36.0); Mean Corpuscular Hemoglobin 26.7 pg (28.0-34.0); Mean Corpuscular Volume 85.8 fl (80-94); Mean Platelet Volume 8.4 fL (7.4-10.4); Monocytes # 0.4 10^3/uL (0.2-0.9); Neutrophils # 7.07 10^3/uL (1.8-7.7); Neutrophils % 84.2 %; Nucleated Red Blood Cells % 0 %; Platelet Count 382 10^3/cmm (130-400); Red Blood Count 4.08 10^6/uL (4.1-5.3); White Blood Count 8.4 10^3/uL (4.0-10.0)
[2021-05-06 13:14] LABS: Alanine Aminotransferase 11 U/L (0-41); Albumin Level 4.1 g/dL (3.5-5.2); Alkaline Phosphatase 108 IU/L (40-130); Anion Gap 19.2 (5-19); Aspartate Amino Transferase 12 U/L (0-40); Blood Urea Nitrogen 43 mg/dL (6-20); Calcium 9.7 mg/dL (8.5-10.5); Carbon Dioxide 26 mmol/L (22-29); Chloride 97 mmol/L (98-107); Globulin 3.8 g/dL (1.3-4.6); Glomerular Filtration Rate 13.9 mL/min (90-130); Glucose 250 mg/dL (65-115); Lipase 20 U/L (13-60); Osmolality Calculated 305 mOsm/kg (285-295); Potassium 4.2 mmol/L (3.5-5.1); Sodium 138 mmol/L (136-145); Total Bilirubin 0.5 mg/dL (0.15-1.2); Total Protein 7.9 g/dL (6.6-8.7)
== END 2021-05-06 12:00 | disposition home or self-care (01) ==
LOC: LAB 12:03
PROVIDERS: PCP Nurse Practitioner Family; Visit Provider Surgery
DX: E11.29 Type 2 diabetes mellitus with other diabetic kidney complication (principal); Z89.519 Acquired absence of unspecified leg below knee
CPT/HCPCS: 80053; 81000; 83690; 85025

== ENCOUNTER 2021-05-06 21:59 | Emergency (ER) | payer OTHER, SELFPAY ==
[2021-05-06 22:07] VITALS: BP 214/110; PULSE 100; RESP 18; TEMP 36.4; O2SAT 94; BMI 35.4
--- NOTE | 2021-05-06 22:18 | ECG_ITS ---
[facility] Test Date: 2021-05-07 Pat Name: Martir Kruger Department: Room: Gender: Male Operations Planner: : 1965 Requested By: Abad Morales Order Number: [id number] Geraldo MD: Roscoe Garner M.D. 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 [id number] f
--- NOTE | 2021-05-07 00:15 | ED_ITS ---
HPI - Nausea/Vomiting/Diarrhea General: Chief complaint: Nausea/Vomiting/Diarrhea Stated complaint: High Blood Pressure\N\V Time Seen by Provider: 05/07/21 00:14 History of Present Illness: 56-year-old male patient comes in today with diffuse abdominal pain with nausea and vomiting for the last 2 days. Patient is a diabetic and reports that his blood sugars been less than 220. Patient does have a below-knee amputation on the left lower extremity, has a history of chronic kidney disease, and hyperlipidemia. Patient reports that this inability to hold anything down, denies constipation or diarrhea. 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 Diabetes type 2, uncontrolled Diabetic foot infection Diabetic peripheral neuropathy associated with type 2 diabetes mellitus Essential hypertension Foot abscess, left Hyperlipidemia associated with type 2 diabetes mellitus Hyperlipidemia, mixed Osteomyelitis Peripheral arterial disease Statin intolerance Surgical History Amputated toe of right foot secondary to osteomyelitis 4th right toe History of amputation of lesser toe History of partial amputation of toe of right foot S/P BKA (below knee amputation) (04/05/21) Family History Father Diabetes Mother Diabetes Other Hypertension Social History Smoking and tobacco status: never smoked Second hand smoke exposure: No Smoking risk assessment/counseling performed?: No Alcohol intake: former Desire information about alcohol rehabilitation?: No Counseling given: No Desire information about substance/drug rehabilitation?: No Counseling given: No Adopted: No Caregiver/support person: No Lives independently: Yes Household members: spouse Housing: House Marital status: service: No Current occupational status: employed Pets and animals: Yes History of recent travel: No Current gender identity: Male Physical Exam Const: COMMON NORMALS: alert HENMT: COMMON NORMALS: atraumatic HEAD & SCALP: atraumatic THROAT: posterior oropharynx normal Resp: COMMON NORMALS: normal respiratory effort and clear to auscultation bilaterally AUSCULTATION: clear to auscultation bilaterally Cardio: COMMON NORMALS: regular rhythm RATE: tachycardic RHYTHM: regular rhythm GI: AUSCULTATION: Yes normoactive bowel sounds PALPATION: Yes Firmness to palpation present (GI) and Yes Tenderness to palpation present (GI) Extremity: NARRATIVE EXTREMITY EXAM: Edema to bilateral lower extremities, low the knee amputation to the left lower extremity. Neuro: SENSORIUM/ORIENTATION: Yes alert Psych: COMMON NORMALS: cooperative Skin: COMMON NORMALS: no rashes or lesions noted GENERAL SKIN EXAM: no rashes or lesions noted Course Vital Signs: Vital signs: Vital Signs Temperature 97.6 F 05/06/21 22:07 Pulse Rate 100 05/06/21 22:07 Respiratory Rate 20 H 05/07/21 00:36 Blood Pressure 214/110 05/06/21 22:07 Pulse Oximetry 94 05/06/21 22:07 MDM - Nausea/Vomiting/Diarrhea Medical Decision Making 56-year-old male patient comes in today with nausea vomiting abdominal pain. Patient has a history of diabetes mellitus with gastroparesis, chronic kidney disease, and hyperlipidemia. Patient also has a below the knee amputation to his left lower extremity. Patient reports for the last 2 days been unable to hold down any fluids. On exam abdomen is tender bowel sounds are decreased. Vital signs are normal except for elevated blood pressure. Differential diagnosis includes bowel obstruction, gastroparesis, gastroenteritis. Laboratory values noted normal white blood cell count, creatinine was 4.3, glucose was 235, sodium and potassium are within normal limits. Troponin high- sensitivity was 69 which is probably related to patient's chronic kidney disease and dialysis. Patient was given 1 L of IV fluids, 10 mg of Reglan, 12-1/2 mg of diphenhydramine, and 4 mg of morphine. Patient had resolution of symptoms. Believe the patient probably has exacerbation of gastroparesis we will continue him with some promethazine to use rectally as needed for nausea and vomiting that he is unable to control orally. Patient should follow-up with primary care for further instruction. Patient should return to the ER for worsening symptoms or new concerns. Patient is going to have dialysis today. Lab Data : 05/07/21 00:25 05/07/21 00:25 Radiology Impressions Abdomen/Pelvis CT 05/07/21 00:21 IMPRESSION: Bilateral pleural effusions have increased and there has been interval increase in subcutaneous fat edema consistent with developing anasarca. Laboratory Results WBC 7.8 10^3/uL (4.0-10.0) 05/07/21 00:25 RBC 4.39 10^6/uL (4.1-5.3) 05/07/21 00:25 Hgb 11.9 g/dL (11.7-16.6) 05/07/21 00:25 Hct 37.6 % (42.0-52.0) L 05/07/21 00:25 MCV 85.6 fl (80-94) 05/07/21 00:25 MCH 27.1 pg (28.0-34.0) L 05/07/21 00:25 MCHC 31.6 g/dL (30.0-36.0) 05/07/21 00:25 RDW 14.1 % (12.1-15.1) 05/07/21 00:25 Plt Count 400 10^3/cmm (130-400) 05/07/21 00:25 MPV 8.5 fL (7.4-10.4) 05/07/21 00:25 Neut % (Auto) 88.4 % 05/07/21 00:25 Lymph % (Auto) 6.8 % 05/07/21 00:25 [place] % (Auto) 4.2 % 05/07/21 00:25 Eos % (Auto) 0.0 % 05/07/21 00:25 Baso % (Auto) 0.1 % 05/07/21 00:25 Neut # (Auto) 6.88 10^3/uL (1.8-7.7) 05/07/21 00:25 Lymph # (Auto) 0.5 10^3/uL (0.8-4.8) L 05/07/21 00:25 [place] # (Auto) 0.3 10^3/uL (0.2-0.9) 05/07/21 00:25 Eos # (Auto) 0.0 10^3/uL (0.0-0.8) 05/07/21 00:25 Baso # (Auto) 0.0 10^3/uL (0.0-0.1) 05/07/21 00:25 Nucleated RBC % (auto) 0 % 05/07/21 00:25 Nucleated RBCs # 0.0 /100WBC 05/07/21 00:25 Sodium 139 mmol/L (136-145) 05/07/21 00:25 Potassium 4.4 mmol/L (3.5-5.1) 05/07/21 00:25 Chloride 95 mmol/L (98-107) L 05/07/21 00:25 Carbon Dioxide 27 mmol/L (22-29) 05/07/21 00:25 Anion Gap 21.4 (5-19) H 05/07/21 00:25 BUN 49 mg/dL (6-20) H 05/07/21 00:25 Creatinine 4.3 mg/dL (0.7-1.2) H 05/07/21 00:25 GFR Calculation 14.3 mL/min (90-130) L 05/07/21 00:25 Glucose 235 mg/dL (65-115) H 05/07/21 00:25 Calculated Osmolality 309 mOsm/kg (285-295) H 05/07/21 00:25 Calcium 8.9 mg/dL (8.5-10.5) 05/07/21 00:25 Total Bilirubin 0.5 mg/dL (0.15-1.2) 05/07/21 00:25 AST 13 U/L (0-40) 05/07/21 00:25 ALT 8 U/L (0-41) 05/07/21 00:25 Alkaline Phosphatase 100 IU/L (40-130) 05/07/21 00:25 Troponin T Baseline 68 ng/L (0-15) H 05/07/21 00:25 Total Protein 7.5 g/dL (6.6-8.7) 05/07/21 00:25 Albumin 4.2 g/dL (3.5-5.2) 05/07/21 00:25 Globulin 3.3 g/dL (1.3-4.6) 05/07/21 00:25 Lipase 18 U/L (13-60) 05/07/21 00:25 Serum Ketones Negative (Negative) 05/07/21 00:34 EKG Data EKG 1: EKG interpretation date: 05/07/21 EKG interpretation time: 00:27 Prior EKG tracings: not available for review Interpretation: EKG shows a sinus tachycardia with a regular rate at [address] elevation or ectopy is noted. Prior exams not available for comparison. Discharge Plan Discharge Patient Disposition: Home Clinical Impression: Diabetes mellitus with gastroparesis Condition: Stable Prescriptions: New promethazine 50 mg suppository 50 mg AR Q6H PRN (Reason: nausea and vomiting) Qty: 12 0RF No Action aspirin [Adult Aspirin Regimen] 81 mg tablet,delayed release (DR/EC) 81 mg PO DAILY 0RF (DME) Minutta Julius 2 Sensor Kit See Rx Instructions .ROUTE .MEDSUPPLY Qty: 1 3RF Rx Instructions: Apply one sensor and change every 14 days. 2 sensors per 28 days pantoprazole [Protonix] 40 mg tablet,delayed release (DR/EC) 40 mg PO BID 30 Days Qty: 60 0RF ondansetron HCl [Zofran] 4 mg tablet 4 mg PO Q6H PRN (Reason: nausea and vomiting) Qty: 20 0RF [place] 10 mcg/dose(250 mcg/mL) 2.4 mL pen injector 10 mcg SUBCUT DAILY 0RF Rx Instructions: 340b albuterol sulfate 90 mcg/actuation HFA aerosol inhaler 1 inh inhalation QID PRN (Reason: shortness of breath or wheezing) Qty: 8.5 3RF Humalog KwikPen Insulin 100 unit/mL insulin pen See Rx Instructions .ROUTE .COMPLEX 0RF Rx Instructions: sliding scale tid Jardiance 10 mg tablet 10 mg PO DAILY 0RF Reglan 5 mg tablet 5 mg PO DAILY Qty: 30 0RF lisinopril 20 mg tablet 20 mg PO DAILY Qty: 60 1RF Humalog KwikPen Insulin 100 unit/mL insulin pen See Rx Instructions .ROUTE .COMPLEX Qty: 15 5RF Rx Instructions: sliding sclae Levemir FlexTouch U-100 Insuln 100 unit/mL (3 mL) insulin pen 17 unit SUBCUT BID Qty: 15 8RF metoprolol tartrate 25 mg tablet 25 mg PO BID Qty: 60 0RF oxycodone 5 mg tablet 5 mg PO TID PRN (Reason: pain) Qty: 20 0RF Senna-Time S 8.6-50 mg tablet 1 tab-cap PO DAILY Qty: 20 0RF hydralazine 10 mg tablet 10 mg PO TID Qty: 90 0RF sodium bicarbonate 650 mg tablet 650 mg PO TID Qty: 90 2RF Iron (ferrous sulfate) 325 mg (65 mg iron) tablet 325 mg PO .qother day Qty: 90 3RF Lasix 20 mg tablet 20 mg PO DAILY Qty: 60 0RF Levemir U-100 Insulin 100 unit/mL solution 17 unit SUBCUT BID Qty: 10 6RF Discharge Orders: Discharge ED (Routine); Ordered 05/07/21 Ordered By: Abad Sarabia Referrals: Sarika Corbin FNP [Primary Care Provider] - Discharge Diet: Usual diet Discharge Activity: Increase activity as tolerated Patient Instructions: Acute Nausea and Vomiting (ED), Opioid Safety Activity Restrictions/Additional Instructions: Use medications as prescribed for nausea and vomiting. Use promethazine suppositories when you are unable to swallow anything. Continue with routine care plan. Follow-up with primary care for further instruction. Return to ER for new concerns. Coding Level of Care Code ED Senior Instructor for Chg Fwd Exam Detailed
--- NOTE | 2021-05-07 00:21 | CTR_ITS ---
PROCEDURE INFORMATION: Exam: CT Abdomen And Pelvis With Contrast Exam date and time: 05/07/2021 12:21 AM Age: 56 years old Clinical indication: Nausea and vomiting; Patient HX: Diffuse abd pain with n/v. History of ckd. ; Additional info: Diffuse abd pain, n/v/d TECHNIQUE: Imaging protocol: Computed tomography of the abdomen and pelvis with contrast. Radiation optimization: All CT scans at this facility use at least one of these dose optimization techniques: automated exposure control; mA and/or kV adjustment per patient size (includes targeted exams where dose is matched to clinical indication); or iterative reconstruction. Contrast material: VISI 320; Contrast volume: 95 ml; Contrast route: INTRAVENOUS (IV); COMPARISON: CT abdomen pelvis wo con [id number] 03/30/2021 10:46 AM RADIATION DOSE METRICS: Total DLP (mGy-cm): 1892.9 FINDINGS: Tubes, catheters and devices: Central venous catheter tip in right cardiac atrium. Pleural spaces: Bilateral pleural effusions are at least moderate in quantity and have increased. Adjacent airspace disease likely represents atelectasis. Liver: Normal. No mass. Gallbladder and bile ducts: Normal. No calcified stones. No ductal dilation. Pancreas: Normal. No ductal dilation. Spleen: Normal. No splenomegaly. Adrenal glands: Normal. No mass. Kidneys and ureters: Normal. No hydronephrosis. Stomach and bowel: Unremarkable. No obstruction. No mucosal thickening. Appendix: No evidence of appendicitis. Intraperitoneal space: Unremarkable. No free air. No significant fluid collection. Vasculature: Vascular calcifications are noted. No abdominal aortic aneurysm. Lymph nodes: Unremarkable. No enlarged lymph nodes. Urinary bladder: Unremarkable as visualized. Reproductive: Unremarkable as visualized. Bones/joints: No acute fracture. Soft tissues: Mild anasarca with overall increase in edema of the subcutaneous fat. CT/CT abdomen pelvis w con* [id number] IMPRESSION: Bilateral pleural effusions have increased and there has been interval increase in subcutaneous fat edema consistent with developing anasarca.
[2021-05-07] MEDS: sodium chloride 0.9% 1,000 ML 999 ML IV (00:26)
[2021-05-07 00:28] LABS: Basophils % 0.1 %; Hematocrit 37.6 % (42.0-52.0); Hemoglobin 11.9 g/dL (11.7-16.6); Lymphocytes # 0.5 10^3/uL (0.8-4.8); Lymphocytes % 6.8 %; Mean Corpuscular HGB Conc 31.6 g/dL (30.0-36.0); Mean Corpuscular Hemoglobin 27.1 pg (28.0-34.0); Mean Corpuscular Volume 85.6 fl (80-94); Mean Platelet Volume 8.5 fL (7.4-10.4); Monocytes # 0.3 10^3/uL (0.2-0.9); Monocytes % 4.2 %; Neutrophils # 6.88 10^3/uL (1.8-7.7); Neutrophils % 88.4 %; Nucleated Red Blood Cells % 0 %; Platelet Count 400 10^3/cmm (130-400); Red Blood Count 4.39 10^6/uL (4.1-5.3); Red Cell Distribution Width 14.1 % (12.1-15.1); White Blood Count 7.8 10^3/uL (4.0-10.0)
[2021-05-07 00:36] VITALS: RESP 20
[2021-05-07] MEDS: diphenhydrAMINE 50 mg/mL SDV 1mL 12.5 MG IVP (00:36)
[2021-05-07] MEDS: morphine 4 mg/mL SDV 1 mL IVP (00:36)
[2021-05-07] MEDS: metoclopramide 5 mg/mL SDV 2 mL 10 MG IVP (00:36)
[2021-05-07 00:49] LABS: Alanine Aminotransferase 8 U/L (0-41); Albumin Level 4.2 g/dL (3.5-5.2); Alkaline Phosphatase 100 IU/L (40-130); Anion Gap 21.4 (5-19); Aspartate Amino Transferase 13 U/L (0-40); Blood Urea Nitrogen 49 mg/dL (6-20); Calcium 8.9 mg/dL (8.5-10.5); Carbon Dioxide 27 mmol/L (22-29); Chloride 95 mmol/L (98-107); Globulin 3.3 g/dL (1.3-4.6); Glomerular Filtration Rate 14.3 mL/min (90-130); Glucose 235 mg/dL (65-115); Lipase 18 U/L (13-60); Osmolality Calculated 309 mOsm/kg (285-295); Potassium 4.4 mmol/L (3.5-5.1); Sodium 139 mmol/L (136-145); Total Bilirubin 0.5 mg/dL (0.15-1.2); Total Protein 7.5 g/dL (6.6-8.7)
[2021-05-07 00:50] LABS: Troponin(5th) Baseline 68 ng/L (0-15)
[2021-05-07 00:55] LABS: Ketone (Acetest) Serum Negative (Negative)
[2021-05-07] MEDS: iodixanol 320 mg/mL 100mL Btl IV (00:55)
[2021-05-07 02:23] VITALS: BP 145/79; PULSE 87; RESP 18; O2SAT 98
== END 2021-05-07 02:25 | disposition home or self-care (01) ==
PROVIDERS: Emergency Provider Nurse Practitioner Family; PCP Nurse Practitioner Family
DX: E11.43 Type 2 diabetes mellitus with diabetic autonomic (poly)neuropathy (principal); K31.84 Gastroparesis; Z79.4 Long term (current) use of insulin; E11.40 Type 2 diabetes mellitus with diabetic neuropathy, unspecified; I10 Essential (primary) hypertension; E78.2 Mixed hyperlipidemia
CPT/HCPCS: 74177; 80053; 82009; 83690; 84484; 85025; 93005; 96361; 96374; 96375; 99284; J1200; J2270; J2765; J7030; Q9967

== ENCOUNTER 2021-05-10 10:21 | Observation (INO) | payer OTHER, SELFPAY ==
[2021-05-10] VITALS (10 sets, daily range): BP systolic 143–242; BP diastolic 72–118; PULSE 70–97; RESP 16–18; TEMP 36.9–37.4; O2SAT 90–95; BMI 35.4
[2021-05-10 10:49] LABS: Basophils % 0.2 %; Eosinophils % 0.4 %; Hematocrit 39.4 % (42.0-52.0); Lymphocytes # 1.1 10^3/uL (0.8-4.8); Lymphocytes % 10.4 %; Mean Corpuscular Hemoglobin 27.2 pg (28.0-34.0); Mean Corpuscular Volume 82.4 fl (80-94); Mean Platelet Volume 8.6 fL (7.4-10.4); Monocytes # 0.9 10^3/uL (0.2-0.9); Monocytes % 8.3 %; Neutrophils # 8.35 10^3/uL (1.8-7.7); Neutrophils % 80.1 %; Nucleated Red Blood Cells % 0 %; Platelet Count 305 10^3/cmm (130-400); Red Blood Count 4.78 10^6/uL (4.1-5.3); Red Cell Distribution Width 13.6 % (12.1-15.1); White Blood Count 10.4 10^3/uL (4.0-10.0)
[2021-05-10] MEDS: lactated ringers 1,000 ML 999 ML IV ×2 (10:51→12:02)
[2021-05-10] MEDS: ondansetron 2 mg/ML SDV 2 mL 4 MG IVP ×2 (10:54→13:37)
[2021-05-10 11:01] LABS: Add Urine Microscopic? YES; Bilirubin Urine Neg (Negative); Blood Urine 3+ (Negative); Glucose Urine UA 1+ (Normal); Ketones Urine Negative (Negative); Leukocyte Esterase Urine Negative (Negative); Nitrate Urine Negative (Negative); Protein Urine 3+ (Negative); Urine Appearance Clear (CLEAR); Urine Color Straw (Yellow); Urobilinogen Urine Norm (Negative); pH Urine 7 (5-7)
[2021-05-10 11:02] LABS: Add Urine Culture? Yes; Bacteria Urine TRACE /hpf; RBC Urine 25-40 /hpf (0-2); Squamous Epithelial Cell Urine 0-4 /hpf (0-5)
[2021-05-10 11:07] LABS: Ketone (Acetest) Serum Negative (Negative)
[2021-05-10 11:16] LABS: Alanine Aminotransferase 8 U/L (0-41); Alkaline Phosphatase 78 IU/L (40-130); Anion Gap 17.9 (5-19); Aspartate Amino Transferase 12 U/L (0-40); Blood Urea Nitrogen 40 mg/dL (6-20); Carbon Dioxide 26 mmol/L (22-29); Chloride 93 mmol/L (98-107); Creatine Phosphokinase 51 U/L (39-308); Globulin 2.7 g/dL (1.3-4.6); Glomerular Filtration Rate 18.1 mL/min (90-130); Glucose 154 mg/dL (65-115); Lipase 18 U/L (13-60); Osmolality Calculated 291 mOsm/kg (285-295); Sodium 134 mmol/L (136-145); Total Bilirubin 0.6 mg/dL (0.15-1.2); Total Protein 6.7 g/dL (6.6-8.7)
--- NOTE | 2021-05-10 11:16 | ED_ITS ---
HPI - Nausea/Vomiting/Diarrhea General: Chief complaint: Nausea/Vomiting/Diarrhea Stated complaint: Vomiting for a week, High BP , Sugar high Time Seen by Provider: 05/10/21 10:23 Source: patient Mode of arrival: ambulatory Limitations: no limitations History of Present Illness: 48-year-old male presents emergency room complaining of nausea vomiting with elevated blood sugars for the last week. Blood pressures also been high. Denies any chest pain he denies any dysuria urgency or frequency he does have some discomfort in the right side of his abdomen. No hematochezia melena hematemesis coffee-ground emesis no fever sweats or chills. No myalgias no anosmia. MD elicited complaint: nausea and vomiting Onset (ago): minute(s) Description of vomiting: food contents and watery Associated nausea: Yes Associated abdominal pain: Yes Location of pain: RUQ and RLQ Radiation: diffuse Pain consistency: constant Severity: moderate Quality: cramping Exacerbating factors: eating Relieving factors: none Associated symtoms: Reports anorexia, nausea and weakness; Denies altered mental status, anxiety, bloating, change in vision, chest pain, cough, diaphoresis, decreased urine output, dizziness, dysuria, epistaxis, fatigue, fecal incontinence, fevers/chills, headache(s), myalgias, numbness, palpitations, rash, short of breath, syncope, tenesmus or tinnitus Review of Systems Const: Denies: fatigue or diaphoresis Eyes: Denies: change in vision ENMT: Denies: tinnitus or epistaxis Card: Denies: chest pain, palpitations or syncope Resp: Denies: dyspnea, productive cough or non-productive cough GI: Reports: nausea; Denies: bloating or fecal incontinence : Denies: dysuria Skin/Breast: Denies: rash or pruritus Neuro: Denies: headache(s) or dizziness Psych: Denies: anxiety PFSH ED PFSH: Medical History Acquired rearfoot varus Chronic renal impairment 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 Diabetes type 2, uncontrolled Diabetic foot infection Diabetic peripheral neuropathy associated with type 2 diabetes mellitus Essential hypertension Foot abscess, left Hyperlipidemia associated with type 2 diabetes mellitus Hyperlipidemia, mixed Osteomyelitis Peripheral arterial disease Statin intolerance Surgical History Amputated toe of right foot secondary to osteomyelitis 4th right toe History of amputation of lesser toe History of partial amputation of toe of right foot S/P BKA (below knee amputation) (04/05/21) Family History Father Diabetes Mother Diabetes Other Hypertension Social History Smoking and tobacco status: never smoked Second hand smoke exposure: No Smoking risk assessment/counseling performed?: No Alcohol intake: former Desire information about alcohol rehabilitation?: No Counseling given: No Desire information about substance/drug rehabilitation?: No Counseling given: No Adopted: No Caregiver/support person: No Lives independently: Yes Household members: spouse Housing: House Marital status: service: No Current occupational status: employed Pets and animals: Yes History of recent travel: No Current gender identity: Male Physical Exam Const: EXAM LIMITATIONS: no altered mental status GENERAL APPEARANCE: cooperative and comfortable ORIENTATION/CONSCIOUSNESS: Yes awake, Yes oriented to person, Yes oriented to place and Yes oriented to time HENMT: COMMON NORMALS: normocephalic, atraumatic and hearing grossly normal bilaterally HEAD & SCALP: normocephalic and atraumatic Neck/C-Spine: COMMON NORMALS: no JVD Resp: COMMON NORMALS: normal respiratory effort, No retractions, No use of accessory muscles and clear to auscultation bilaterally AUSCULTATION: clear to auscultation bilaterally Cardio: COMMON NORMALS: no JVD, regular rate, regular rhythm and No murmurs present (Cardio) RATE: regular rate RHYTHM: regular rhythm GI: COMMON NORMALS: Soft to palpation and No hepatosplenomegaly present AUSCULTATION: Yes normoactive bowel sounds PALPATION: Yes Soft to palpation, No Tenderness to palpation present (GI), No Guarding due to palpation present (GI) and Yes No hepatosplenomegaly present Extremity: COMMON NORMALS: normal to inspection, capillary refill normal, no clubbing, cyanosis or edema, no calf tenderness and no pedal edema Neuro: SENSORIUM/ORIENTATION: Yes oriented to person, Yes oriented to place and Yes oriented to time Skin: COMMON NORMALS: no rashes or lesions noted GENERAL SKIN EXAM: no rashes or lesions noted Course Vital Signs: Vital signs: Vital Signs Temperature 98.5 F 05/10/21 10:27 Pulse Rate 95 05/10/21 17:27 Respiratory Rate 16 05/10/21 17:27 Blood Pressure 185/90 05/10/21 17:27 Pulse Oximetry 92 05/10/21 17:27 MDM - Nausea/Vomiting/Diarrhea Medical Decision Making Persistent nausea vomiting despite several different antiemetics. We will go ahead and admit the patient IV fluids GI rest antiemetics discussed Dr. Sanchez orders are written. His CT was negative. He has failed attempt at outpatient therapy and will require hospitalization at this time. Some this may be due to gastric diabetic gastroparesis not appear to be in DKA based on his lab work. Medical Records I reviewed the patient's medical records. Lab Data I reviewed the patient's lab results. : 05/10/21 10:40 05/10/21 10:40 Radiology Impressions Abdomen/Pelvis CT 05/10/21 11:34 IMPRESSION: 1. No significant interval change. 2. Additional findings, as above. Laboratory Results WBC 10.4 10^3/uL (4.0-10.0) H 05/10/21 10:40 RBC 4.78 10^6/uL (4.1-5.3) 05/10/21 10:40 Hgb 13.0 g/dL (11.7-16.6) 05/10/21 10:40 Hct 39.4 % (42.0-52.0) L 05/10/21 10:40 MCV 82.4 fl (80-94) 05/10/21 10:40 MCH 27.2 pg (28.0-34.0) L 05/10/21 10:40 MCHC 33.0 g/dL (30.0-36.0) 05/10/21 10:40 RDW 13.6 % (12.1-15.1) 05/10/21 10:40 Plt Count 305 10^3/cmm (130-400) 05/10/21 10:40 MPV 8.6 fL (7.4-10.4) 05/10/21 10:40 Neut % (Auto) 80.1 % 05/10/21 10:40 Lymph % (Auto) 10.4 % 05/10/21 10:40 [place] % (Auto) 8.3 % 05/10/21 10:40 Eos % (Auto) 0.4 % 05/10/21 10:40 Baso % (Auto) 0.2 % 05/10/21 10:40 Neut # (Auto) 8.35 10^3/uL (1.8-7.7) H 05/10/21 10:40 Lymph # (Auto) 1.1 10^3/uL (0.8-4.8) 05/10/21 10:40 [place] # (Auto) 0.9 10^3/uL (0.2-0.9) 05/10/21 10:40 Eos # (Auto) 0.0 10^3/uL (0.0-0.8) 05/10/21 10:40 Baso # (Auto) 0.0 10^3/uL (0.0-0.1) 05/10/21 10:40 Nucleated RBC % (auto) 0 % 05/10/21 10:40 Nucleated RBCs # 0.0 /100WBC 05/10/21 10:40 Specimen Type Arterial 05/10/21 11:39 Sample Site Radial, left 05/10/21 11:39 ABG pH 7.47 (7.35-7.45) H 05/10/21 11:39 ABG pCO2 41.2 mmHg (35-45) 05/10/21 11:39 ABG pO2 73.4 mmHg (80.0-100.0) L 05/10/21 11:39 ABG HCO3 30.2 mmol/L (22-26) H 05/10/21 11:39 ABG O2 Saturation 95.8 05/10/21 11:39 ABG Base Excess 6.0 mmol/L (-2.0-2.0) H 05/10/21 11:39 Bj Test Pos 05/10/21 11:39 A-a O2 Gradient 3.2 mmHg (5-10) L 05/10/21 11:39 Hematocrit 35.5 % (42-52) L 05/10/21 11:39 Hgb O2 Saturation 93.3 % (95-100) L 05/10/21 11:39 Carboxyhemoglobin 1.8 %THgb (0.4-20.1) 05/10/21 11:39 Methemoglobin 0.8 % (0.4-1.5) 05/10/21 11:39 Total Hemoglobin 11.6 g/dL (14-18) L 05/10/21 11:39 Sodium 136.0 mmol/L (131-143) 05/10/21 11:39 Potassium 2.8 mmol/L (3.5-5.0) L 05/10/21 11:39 Glucose 141.0 mg/dL (70-115) H 05/10/21 11:39 Ionized Calcium 1.1 mmol/L (1.1-1.4) 05/10/21 11:39 O2 Delivery Device Room air 05/10/21 11:39 FiO2 21.0 % 05/10/21 11:39 Director Of Religious Life ID glc 05/10/21 11:39 Sodium 134 mmol/L (136-145) L 05/10/21 10:40 Potassium 2.9 mmol/L (3.5-5.1) L 05/10/21 10:40 Chloride 93 mmol/L (98-107) L 05/10/21 10:40 Carbon Dioxide 26 mmol/L (22-29) 05/10/21 10:40 Anion Gap 17.9 (5-19) 05/10/21 10:40 BUN 40 mg/dL (6-20) H 05/10/21 10:40 Creatinine 3.5 mg/dL (0.7-1.2) H 05/10/21 10:40 GFR Calculation 18.1 mL/min (90-130) L 05/10/21 10:40 Glucose 154 mg/dL (65-115) H 05/10/21 10:40 Calculated Osmolality 291 mOsm/kg (285-295) 05/10/21 10:40 Lactic Acid 0.8 mmol/L (0.5-2.2) 05/10/21 10:53 Calcium 9.0 mg/dL (8.5-10.5) 05/10/21 10:40 Magnesium 2.0 mg/dL (1.7-2.3) 05/10/21 10:40 Total Bilirubin 0.6 mg/dL (0.15-1.2) 05/10/21 10:40 AST 12 U/L (0-40) 05/10/21 10:40 ALT 8 U/L (0-41) 05/10/21 10:40 Alkaline Phosphatase 78 IU/L (40-130) 05/10/21 10:40 Creatine Kinase 51 U/L (39-308) 05/10/21 10:40 Total Protein 6.7 g/dL (6.6-8.7) 05/10/21 10:40 Albumin 4.0 g/dL (3.5-5.2) 05/10/21 10:40 Globulin 2.7 g/dL (1.3-4.6) 05/10/21 10:40 Lipase 18 U/L (13-60) 05/10/21 10:40 Urine Color Straw (Yellow) 05/10/21 10:44 Urine Appearance Clear (CLEAR) 05/10/21 10:44 Urine pH 7 (5-7) 05/10/21 10:44 Ur Specific [place] 1.010 (1.005-1.030) 05/10/21 10:44 Urine Protein 3+ (Negative) H 05/10/21 10:44 Urine Glucose (UA) 1+ (Normal) H 05/10/21 10:44 Urine Ketones Negative (Negative) 05/10/21 10:44 Urine Blood 3+ (Negative) H 05/10/21 10:44 Urine Nitrate Negative (Negative) 05/10/21 10:44 Urine Bilirubin Neg (Negative) 05/10/21 10:44 Urine Urobilinogen Norm mg/dL (Negative) 05/10/21 10:44 Ur Leukocyte Esterase Negative (Negative) 05/10/21 10:44 Urine RBC 25-40 /hpf (0-2) H 05/10/21 10:44 Urine WBC None /hpf (0-5) 05/10/21 10:44 Ur Squamous Epith Cells 0-4 /hpf (0-5) H 05/10/21 10:44 Amorphous Sediment Not Reportable 05/10/21 10:44 Urine Bacteria Trace /hpf (NONE) 05/10/21 10:44 Serum Ketones Negative (Negative) 05/10/21 10:40 Discharge Plan Discharge Patient Disposition: Admitted As Inpatient Admit Provider: Huey Sanchez Condition: Stable Coding Level of Care Code ED Russian Teacher for Chg Fwd Exam Comprehensive
[2021-05-10 11:17] LABS: Potassium 2.9 mmol/L (3.5-5.1)
[2021-05-10 11:26] LABS: Lactic Sepsis W/Reflex 0.8 mmol/L (0.5-2.2)
[2021-05-10] MEDS: lidocaine 1% 5 ML in potassium chloride premix 100 ML 25 ML IV (11:27)
--- NOTE | 2021-05-10 11:34 | CTR_ITS ---
PROCEDURE INFORMATION: Exam: CT Abdomen And Pelvis With Contrast Exam date and time: 05/10/2021 11:34 AM Age: 56 years old Clinical indication: Nausea and vomiting; Patient HX: N/v and decreased intake x 6 days; Additional info: Abd pain TECHNIQUE: Imaging protocol: Computed tomography of the abdomen and pelvis with contrast. Axial, coronal and sagittal reformatted images were created and reviewed. Radiation optimization: All CT scans at this facility use at least one of these dose optimization techniques: automated exposure control; mA and/or kV adjustment per patient size (includes targeted exams where dose is matched to clinical indication); or iterative reconstruction. Contrast material: VISI 320; Contrast volume: 90 ml; Contrast route: INTRAVENOUS (IV); COMPARISON: CT abdomen pelvis w con* [id number] 05/07/2021 12:59 AM RADIATION DOSE METRICS: Total DLP (mGy-cm): 734.23 FINDINGS: Tubes, catheters and devices: Partially visualized central venous catheter in the right atrium. Lungs: Bilateral lower lobe consolidations, likely due to compressive atelectasis. Scattered calcified granulomata. Pleural spaces: Moderate to large pleural effusions, similar to prior. Diaphragm: Small hiatal hernia. Liver: Unremarkable. Gallbladder and bile ducts: Hyperattenuation in the gallbladder lumen, likely secondary to vicarious excretion of contrast. Pancreas: Unremarkable. Spleen: Coarse calcified splenic granulomata. Adrenal glands: Normal. No mass. Kidneys and ureters: Mild nonspecific bilateral perinephric stranding. No radiodense calculi. No hydronephrosis. Stomach and bowel: Moderate amount of retained stool in the colon. No definite bowel wall thickening. No obstruction. No pneumatosis. Appendix: Normal. Intraperitoneal space: No free fluid. No organized fluid collection. No free air. Vasculature: Mild atherosclerotic disease. No aneurysm or dissection. Lymph nodes: No pathologically enlarged lymph nodes. Urinary bladder: Unremarkable as visualized. Reproductive: Dense vas deferens calcification. Bones/joints: No acute osseous abnormality. Mild degenerative changes. Soft tissues: Mild anasarca. CT/CT abdomen pelvis w con* [id number] IMPRESSION: 1. No significant interval change. 2. Additional findings, as above.
[2021-05-10 11:49] LABS: ABG PCO2 41.2 mmHg (35-45); ABG PH Result 7.47 (7.35-7.45); Alveolar-Arterial Oxygen Gradi 3.2 mmHg (5-10); Arterial Blood Gas Hematocrit 35.5 % (42-52); Blood Gas Allen Test Pos; Blood Gas Operator Identificat glc; Blood Gas Sample Site Radial, left; Blood Gas Sample Type Arterial; Carboxyhemoglobin 1.8 %THgb (0.4-20.1); HCO3 ABG 30.2 mmol/L (22-26); HGB O2 Sat 93.3 % (95-100); Ionized Calcium Level - ABG 1.1 mmol/L (1.1-1.4); Methemoglobin 0.8 % (0.4-1.5); Oxygen Device ROOM AIR; Oxygen Saturation ABG 95.8; PO2 ABG 73.4 mmHg (80.0-100.0); Potassium Level - ABG 2.8 mmol/L (3.5-5.0); Total Hemoglobin 11.6 g/dL (14-18)
[2021-05-10] MEDS: promethazine 25 mg/mL SDV 1 mL IM (13:28)
[2021-05-10] MEDS: morphine 4 mg/mL SDV 1 mL IVP (13:37)
[2021-05-10] MEDS: iodixanol 320 mg/mL 100mL Btl IV (13:53)
[2021-05-10] MEDS: labetalol 5 mg/mL SDV 20mL 10 MG IVP (14:32)
[2021-05-10] MEDS: hyDRALAzine 20 mg/mL INJ 1 mL IVP (14:33)
[2021-05-10] MEDS: amlodipine 10 mg Tablet PO (14:33)
[2021-05-10] MEDS: haloperidol inj 5 mg/mL INJ 1 mL 2.5 MG IM (16:04)
[2021-05-10] MEDS: enalaprilat 1.25 mg/mL Inj IVP (17:55)
--- NOTE | 2021-05-10 18:11 | P.HP_ITS ---
Providers/Chief Complaint Admitting Physician: Huey Sanchez Primary Care Provider: MARK Kilpatrick Chief Complaint: Vomiting for a week, High BP 223/110, Sugar high History of Present Illness Pleasant 56-year-old gentleman with recent admission initially with hyperglycem ia, HHS, also with noted left lower extremity infection unresponsive to antibiotics, status post BKA, contrast-induced nephropathy, has been requiring hemodialysis since which he is receiving 3 right chest tunneled catheter on Tuesdays and Saturdays. He has started feeling unwell around Wednesday with progressive/persistent episodes of nausea, vomiting, unable to tolerate oral intake, his states has taken minimal water, some yogurt/pudding. Has not had a bowel movement in a while. Some elevation of blood sugars noted at home. Here blood glucose is 154. Denies any NSAID use. Denies abdominal pain beyond soreness of the abdominal wall. Passing gas. Denies abdominal surgeries. Denies headache, has been having some motion sickness when being driven in the car, but denies dizziness or vertigo. In ER he is afebrile, minimal leukocytosis 10.4, ABG 7.47/41.2/23.4/30.2. Sodium 134, potassium 2.9, chloride 93. BUN 40, creatinine 3.5. Bicarb 26. Anion gap 17.9. Lipase is normal. UA with 3+ protein, 1+ glucose, 3+ blood, 25-40 RBC, no WBC, 0-4 squamous epithelial cells. Urine ketones and serum ketones negative. Contrast CT abdomen and pelvis obtained in ER without significant interval change. Mild anasarca. In ER received bolus of LR, received Zofran, Phenergan, morphine, hydralazine, amlodipine, labetalol, due to hypertensive urgency on presentation, blood pressure as high as 242/118. currently down to 185/90. Review of Systems Const: Reports: change in appetite; Denies: fever(s), chills, body aches or malaise Eyes: Denies: change in vision or eye redness ENMT: Denies: throat pain, oral sores or ear or mastoid pain Card: Denies: chest pain, edema, pre-syncope or dyspnea on exertion Resp: Denies: dyspnea, productive cough, change in phlegm color or hemoptysis GI: Reports: nausea and vomiting; Denies: abdominal pain, diarrhea, constipation, hematochezia or melena : Denies: flank pain, difficulty urinating, urinary frequency or hematuria Musc: Denies: back pain, joint swelling or joint redness Skin/Breast: Denies: rash, sores or new lesions Neuro: Denies: headache(s), numbness in extremities, weakness in extremities, dizziness, confusion or seizure-like activity Endo: Denies: polyuria or polydipsia David/Lymph: Denies: easy bleeding or purpura All/Imm: Denies: urticaria, throat swelling or tongue swelling Medications/Allergies Home Medications Medication Instructions Recorded Confirmed Last Taken Type aspirin 81 mg tablet,delayed 81 mg PO DAILY 06/16/19 05/10/21 05/10/21 History release (Adult Aspirin Regimen) exenatide (Byetta) 10 mcg SUBCUT DAILY 09/21/20 05/10/21 05/10/21 History empagliflozin 10 mg tablet 10 mg PO DAILY 03/26/21 05/10/21 05/10/21 History (Jardiance) lisinopril 20 mg tablet 20 mg PO DAILY #60 tab 03/28/21 05/10/21 05/10/21 Rx metoclopramide HCl 5 mg tablet 5 mg PO DAILY #30 tab 03/28/21 05/10/21 05/10/21 Rx (Reglan) furosemide 20 mg tablet (Lasix) 20 mg PO DAILY #60 tab 04/16/21 05/10/21 05/10/21 Rx hydralazine 10 mg tablet 10 mg PO TID #90 tab 04/16/21 05/10/21 05/10/21 Rx metoprolol tartrate 25 mg tablet 25 mg PO BID #60 tab 04/16/21 05/10/21 05/10/21 Rx oxycodone 5 mg tablet 5 mg PO TID PRN #20 tab 04/16/21 05/10/21 Unknown Rx sennosides 8.6 mg-docusate sodium 1 tab-cap PO DAILY #20 tab 04/16/21 05/10/21 05/10/21 Rx 50 mg tablet (Senna-Time S) sodium bicarbonate 650 mg tablet 650 mg PO TID #90 tab 04/16/21 05/10/21 05/10/21 Rx insulin detemir U-100 100 unit/mL 17 unit (0.17 mL) SUBCUT BID #10 ml 04/23/21 05/10/21 05/10/21 Rx subcutaneous solution (Levemir U-100 Insulin) flash glucose sensor (FreeStyle #1 ea 04/30/21 05/10/21 Unknown Rx Julius 2 Sensor) ondansetron HCl 4 mg tablet 4 mg PO Q6H PRN #20 tab 05/06/21 05/10/21 Unknown Rx (Zofran) pantoprazole 40 mg tablet,delayed 40 mg PO BID 30 Days #60 tab 05/06/21 05/10/21 05/10/21 Rx release (Protonix) promethazine 50 mg rectal 50 mg [place] Q6H PRN #12 ea 05/07/21 05/10/21 Unknown Rx suppository ferrous sulfate 325 mg (65 mg 325 mg PO EVERY OTHER DAY 05/10/21 05/10/21 05/09/21 History iron) tablet (Iron (ferrous sulfate)) insulin aspart U-100 100 unit/mL See Rx Instructions .ROUTE .COMPLEX 05/10/21 05/10/21 05/10/21 History (3 mL) subcutaneous pen (Novolog Flexpen U-100 Insulin aspart) Allergies Allergy/AdvReac Type Severity Reaction Status Date / Time No Known Allergies Allergy Verified 05/10/21 10:40 PFSH Acute PFSH: Medical History Acquired rearfoot varus Chronic renal impairment 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 Diabetes type 2, uncontrolled Diabetic foot infection Diabetic peripheral neuropathy associated with type 2 diabetes mellitus Essential hypertension Foot abscess, left Hyperlipidemia associated with type 2 diabetes mellitus Hyperlipidemia, mixed Osteomyelitis Peripheral arterial disease Statin intolerance Surgical History Amputated toe of right foot secondary to osteomyelitis 4th right toe History of amputation of lesser toe History of partial amputation of toe of right foot S/P BKA (below knee amputation) (04/05/21) Family History Father Diabetes Mother Diabetes Other Hypertension Social History Smoking and tobacco status: never smoked Second hand smoke exposure: No Smoking risk assessment/counseling performed?: No Alcohol intake: former Desire information about alcohol rehabilitation?: No Counseling given: No Desire information about substance/drug rehabilitation?: No Counseling given: No Adopted: No Caregiver/support person: No Lives independently: Yes Household members: spouse Housing: House Marital status: service: No Current occupational status: employed Pets and animals: Yes History of recent travel: No Current gender identity: Male Vitals/I&O/Wt Last Vital Signs Temp 98.5 F 05/10/21 10:27 Pulse 95 05/10/21 17:27 Resp 16 05/10/21 17:27 BP 185/90 05/10/21 17:27 Pulse Ox 92 05/10/21 17:27 05/10/21 05/10/21 05/10/21 06:59 14:59 22:59 Intake Total 1999 105 / 2105 Balance 1999 105 / 2105 Weight last 48 hrs Weight 108.862 kg Physical Exam Narrative: at bedside Const: COMMON NORMALS: patient oriented x3 GENERAL APPEARANCE: not comfortable NUTRITIONAL APPEARANCE: overweight HENMT: COMMON NORMALS: oropharynx normal Neck/C-Spine: COMMON NORMALS: no JVD Resp: COMMON NORMALS: normal respiratory effort and clear to auscultation bilaterally AUSCULTATION: clear to auscultation bilaterally Cardio: COMMON NORMALS: no JVD, regular rhythm, S1 normal heart sound present, S2 normal heart sound present and No murmurs present (Cardio) RHYTHM: regular rhythm HEART SOUNDS: S1 normal heart sound present and S2 normal heart sound present GI: COMMON NORMALS: Normal to inspection, nondistended, normoactive bowel sounds present, Soft to palpation and non-tender PALPATION: Yes Soft to palpation and Yes Tenderness to palpation present (GI) (Minimally) Extremity: COMMON NORMALS: no joint enlargement and no pedal edema OTHER: L BKA Neuro: COMMON NORMALS: patient oriented x3 and moves all extremities Skin: COMMON NORMALS: no rashes or lesions noted GENERAL SKIN EXAM: no rashes or lesions noted Data : 05/10/21 10:40 05/10/21 10:40 A&P Assessment and plan (1) Nausea and vomiting: Not resolving nausea and vomiting with recurrent episodes since Wednesday. Very poor oral intake. Does not appear dehydrated, some mild anasarca noted on CT. Has not had dialysis today. No abdominal pain. No acute process on CT abdomen pelvis otherwise. Lipase normal. Not in DKA. Possibly medication related. Stop Byetta due to common side effect of nausea vomiting and renal failure. Discontinue Jardiance. Possible symptomatic hypotension, blood pressure as high as 242/118. Improved with treatment, currently down to 185/90. Although is question of possible diabetic gastroparesis as well. Antiemetics. Bowel rest, clear liquids for now. No signs of obstruction, no NG for now. Status: Acute (2) Hypertensive urgency: Blood pressure as high as 242/118 on presentation. With treatment currently down to 185/90. Continue home antihypertensives. Continue hydralazine IV as needed. Monitor blood pressures. Status: Acute (3) Acute renal failure superimposed on stage 3b chronic kidney disease: His states usual dialysis days have been Wednesday and Wednesday. Has not had dialysis today. He is not uremic. Hyponatremia presentation, although blood pr essure is better. Consulting nephrology, likely dialysis tomorrow. Status: Acute (4) Microscopic hematuria: Cannot rule out UTI, although otherwise did not appear septic. Follow-up urine culture. No antibiotic for now as he is not otherwise having urinary symptoms. Follow-up hematuria for resolution on outpatient basis. Status: Acute Plan DM2 with peripheral neuropathy: Discontinue Byetta, Jardiance given renal failure. Dialysis. Continue insulin. Clear liquid consistent carb diet. Recent left BKA has been healing well Other chronic medical conditions noted. Attestations Medical Necessity Statement*: Place in observation for assessment management of nonresolving nausea and vomiting. Poor oral intake. Coding Level of Care Code Acute Irrigation System Operator for [facility] Fwd Diagnoses Nausea and vomiting R11.2 Acute renal failure superimposed on stage 3b chronic kidney disease N17.9; N18.32 Microscopic hematuria R31.29 Hypertensive urgency I16.0
[2021-05-10 19:32] LABS: Glucose Point of Care 160 mg/dL (70-110)
[2021-05-10] MEDS: heparin 5,000 unit/mL INJ 1 mL 5000 UNIT SUBCUT (20:32)
[2021-05-10] MEDS: hyDRALAzine 10 mg Tablet PO (20:33)
[2021-05-10 20:39] LABS: Glucose Point of Care 118 mg/dL (70-110)
[2021-05-11] VITALS (7 sets, daily range): BP systolic 136–170; BP diastolic 66–92; PULSE 73–96; RESP 16–18; TEMP 36.6–36.9; O2SAT 92–97
[2021-05-11] MEDS: ondansetron 2 mg/ML SDV 2 mL 4 MG IVP (01:57)
[2021-05-11] MEDS: heparin 5,000 unit/mL INJ 1 mL 5000 UNIT SUBCUT ×2 (05:33→18:01)
[2021-05-11 06:08] LABS: Basophils % 0.3 %; Eosinophils # 0.1 10^3/uL (0.0-0.8); Eosinophils % 0.8 %; Hematocrit 32.6 % (42.0-52.0); Hemoglobin 10.3 g/dL (11.7-16.6); Lymphocytes # 1.1 10^3/uL (0.8-4.8); Lymphocytes % 18.6 %; Mean Corpuscular HGB Conc 31.6 g/dL (30.0-36.0); Mean Corpuscular Hemoglobin 26.7 pg (28.0-34.0); Mean Corpuscular Volume 84.5 fl (80-94); Mean Platelet Volume 9.4 fL (7.4-10.4); Monocytes # 0.7 10^3/uL (0.2-0.9); Monocytes % 10.8 %; Neutrophils # 4.16 10^3/uL (1.8-7.7); Nucleated Red Blood Cells % 0 %; Platelet Count 215 10^3/cmm (130-400); Red Blood Count 3.86 10^6/uL (4.1-5.3); Red Cell Distribution Width 13.9 % (12.1-15.1)
[2021-05-11 06:20] LABS: Glucose Point of Care 131 mg/dL (70-110)
[2021-05-11 06:36] LABS: Alanine Aminotransferase 6 U/L (0-41); Albumin Level 3.2 g/dL (3.5-5.2); Alkaline Phosphatase 55 IU/L (40-130); Anion Gap 16.6 (5-19); Aspartate Amino Transferase 10 U/L (0-40); Blood Urea Nitrogen 42 mg/dL (6-20); Calcium 7.5 mg/dL (8.5-10.5); Carbon Dioxide 27 mmol/L (22-29); Chloride 97 mmol/L (98-107); Globulin 1.8 g/dL (1.3-4.6); Glomerular Filtration Rate 17.5 mL/min (90-130); Glucose 107 mg/dL (65-115); Osmolality Calculated 297 mOsm/kg (285-295); Sodium 138 mmol/L (136-145); Total Bilirubin 0.5 mg/dL (0.15-1.2)
[2021-05-11 07:24] LABS: Potassium 2.6 mmol/L (3.5-5.1)
--- NOTE | 2021-05-11 07:42 | P.CONIM_ITS ---
Providers/Reason For Consult Consulting Physician/Specialty*: Nephro Reason for Consult*: Thank you for consultation, today the pleasure of reviewing Alli, who I know randell arce from a recent hospitalization. In brief, he was admitted between 03/26 and 04/23 due to emphysematous osteomyelitis of the left foot, he underwent BKA. During his hospitalization he developed overt renal failure and was initiated on hemodialysis. Subsequently he was discharged to the outpatient dialysis clinic under the care of . He typically would undergo dialysis on Wednesday and Wednesday, however, he rescheduled to Wednesday of last week, his last hemodialysis session. For the last 6 days he has had persistent nausea and vomiting. He denies any severe abdominal pain. Admission CT scan of the abdomen and pelvis demonstrated no acute pathology he has received antiemetic medication with some resolution of his nausea and vomiting. He denies extremity edema, this is much improved since his recent hospitalization where he was fluid overloaded. Blood pressure was elevated yesterday evening but well controlled after initiation of his home medication. He has good urine output. No other uremic symptoms. Attending Physician: Huey Sanchez Primary Care Provider: MARK Kilpatrick History of Present Illness History of Present Illness Martir Kruger is a 56 year old male Review of Systems Narrative: ROS - 12 point review of systems completed per HPI and subjective assessment, this includes Constitutional: No weakness, fatigue Respiratory: No SOB on exertion, comfortable at rest CardioVasc: No chest pain, palpitations Gastrointestinal: No nausea, no vomiting Neurological: No seizures, no AMS Derm: No new rashes, lesions or wounds Immunological: No seasonal and no food allergies Medications/Allergies Home Medications Medication Instructions Recorded Confirmed Last Taken Type aspirin 81 mg tablet,delayed 81 mg PO DAILY 06/16/19 05/10/21 05/10/21 History release (Adult Aspirin Regimen) exenatide (Byetta) 10 mcg SUBCUT DAILY 09/21/20 05/10/21 05/10/21 History empagliflozin 10 mg tablet 10 mg PO DAILY 03/26/21 05/10/21 05/10/21 History (Jardiance) lisinopril 20 mg tablet 20 mg PO DAILY #60 tab 03/28/21 05/10/21 05/10/21 Rx metoclopramide HCl 5 mg tablet 5 mg PO DAILY #30 tab 03/28/21 05/10/21 05/10/21 Rx (Reglan) furosemide 20 mg tablet (Lasix) 20 mg PO DAILY #60 tab 04/16/21 05/10/21 05/10/21 Rx hydralazine 10 mg tablet 10 mg PO TID #90 tab 04/16/21 05/10/21 05/10/21 Rx metoprolol tartrate 25 mg tablet 25 mg PO BID #60 tab 04/16/21 05/10/21 05/10/21 Rx oxycodone 5 mg tablet 5 mg PO TID PRN #20 tab 04/16/21 05/10/21 Unknown Rx sennosides 8.6 mg-docusate sodium 1 tab-cap PO DAILY #20 tab 04/16/21 05/10/21 05/10/21 Rx 50 mg tablet (Senna-Time S) sodium bicarbonate 650 mg tablet 650 mg PO TID #90 tab 04/16/21 05/10/21 05/10/21 Rx insulin detemir U-100 100 unit/mL 17 unit (0.17 mL) SUBCUT BID #10 ml 04/23/21 05/10/21 05/10/21 Rx subcutaneous solution (Levemir U-100 Insulin) flash glucose sensor (FreeStyle #1 ea 04/30/21 05/10/21 Unknown Rx Julius 2 Sensor) ondansetron HCl 4 mg tablet 4 mg PO Q6H PRN #20 tab 05/06/21 05/10/21 Unknown Rx (Zofran) pantoprazole 40 mg tablet,delayed 40 mg PO BID 30 Days #60 tab 05/06/21 05/10/21 05/10/21 Rx release (Protonix) promethazine 50 mg rectal 50 mg ND Q6H PRN #12 ea 05/07/21 05/10/21 Unknown Rx suppository ferrous sulfate 325 mg (65 mg 325 mg PO EVERY OTHER DAY 05/10/21 05/10/21 05/09/21 History iron) tablet (Iron (ferrous sulfate)) insulin aspart U-100 100 unit/mL See Rx Instructions .ROUTE .COMPLEX 05/10/21 05/10/21 05/10/21 History (3 mL) subcutaneous pen (Novolog Flexpen U-100 Insulin aspart) Allergies Allergy/AdvReac Type Severity Reaction Status Date / Time No Known Allergies Allergy Verified 05/10/21 10:40 Current Medications Generic Name Dose Route Start Last Admin Trade Name Freq PRN Reason Stop Dose Admin Heparin Sodium (Porcine) 5,000 unit 05/10/21 18:15 05/11/21 05:33 Heparin 5,000 Unit/Ml Inj 1 Ml SUBCUT 5,000 unit Q12H MANUELA Administration Hydralazine HCl 10 mg 05/10/21 21:00 05/10/21 20:33 Hydralazine 10 Mg Tablet PO 10 mg TID MANUELA Administration Ondansetron HCl 4 mg 05/10/21 17:18 05/11/21 01:57 Ondansetron 2 Mg/Ml Sdv 2 Ml IVP 4 mg Q6H PRN Administration NAUSEA AND VOMITING PFSH Acute PFSH: Medical History Acquired rearfoot varus Chronic renal impairment 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 Diabetes type 2, uncontrolled Diabetic foot infection Diabetic peripheral neuropathy associated with type 2 diabetes mellitus Essential hypertension Foot abscess, left Hyperlipidemia associated with type 2 diabetes mellitus Hyperlipidemia, mixed Osteomyelitis Peripheral arterial disease Statin intolerance Surgical History Amputated toe of right foot secondary to osteomyelitis 4th right toe History of amputation of lesser toe History of partial amputation of toe of right foot S/P BKA (below knee amputation) (04/05/21) Family History Father Diabetes Mother Diabetes Other Hypertension Social History Smoking and tobacco status: never smoked Second hand smoke exposure: No Smoking risk assessment/counseling performed?: No Alcohol intake: former Desire information about alcohol rehabilitation?: No Counseling given: No Desire information about substance/drug rehabilitation?: No Counseling given: No Adopted: No Caregiver/support person: No Lives independently: Yes Household members: spouse Housing: House Marital status: service: No Current occupational status: employed Pets and animals: Yes History of recent travel: No Current gender identity: Male Vitals/I&O/Wt Last Vital Signs Temp 98.2 F 03/06/22 07:21 Pulse 96 05/11/21 07:21 Resp 18 05/11/21 07:21 BP 164/90 05/11/21 07:21 Pulse Ox 93 05/11/21 07:21 05/10/21 05/11/21 05/11/21 22:59 06:59 14:59 Intake Total 105 / 2105 Output Total 550 / 550 625 / 625 Balance 105 / 2105 -550 / 1555 -625 / -625 Weight last 48 hrs Weight 103.827 kg Weight 108.862 kg Physical Exam Narrative: Constitutional: Awake, comfortable HEENT: Wet mucosa, no jvp, non icteric Lungs: Bilaterally clear without discernible wheeze or rales in all lung zones CVS: S1 S2, no murmurs Abdo: Soft, BS ok Ext 4: Minimal edema, peripheral perfusion with no cyanosis Neurological: Grossly non-focal Data : 05/11/21 04:00 05/11/21 04:00 A&P Assessment and plan (1) Acute renal failure superimposed on stage 3b chronic kidney disease: Status: Acute Plan 1. Acute kidney injury He developed renal failure during his recent hospitalization following contrast and also in the setting of sepsis. Baseline creatinine 1.1 as measured on arrival during his last hospitalization. Creatinine 3.5 yesterday, 3.6 today with no acute indication for dialysis. He may well be in recovery now, we will hold off dialyzing him and continue to monitor him for the next few days. If his creatinine stabilizes, will continue to hold dialysis with close monitoring. No work-up is required per se for his acute kidney injury. This is complete. Dose medication for GFR less than 15 Avoid usual nephrotoxic agents Ins and outs 2. Nausea and vomiting Differential includes medication related, gastroparesis. Currently on antiemetics comanagement per medical team. 3. Chemistry Quite profound hypokalemia, will give 80 mEq today before recheck. Chemistry otherwise looks pretty stable. 4. Hypertension Blood pressure elevated coming into the hospital but did come down after initiation of outpatient medications, continue to monitor closely during his hospital stay. Thank you for consultation, as always it is a pleasure to follow these cases with you Kristofer Noble MD Nephrology [phone] Patient seen and examined via telemedicine, with the assistance of the bedside RN > 25 min spent in evaluation and mgmt of patient Coding Level of Care Code Acute Energy Conservation Engineer for [facility] Fwd Diagnoses Acute renal failure superimposed on stage 3b chronic kidney disease N17.9; N18.32
[2021-05-11] MEDS: hyDRALAzine 10 mg Tablet PO ×3 (09:05→20:41)
[2021-05-11] MEDS: lisinopril 20 mg Tablet PO (09:05)
[2021-05-11] MEDS: sennosides-docusate Tablet 1 TAB PO (09:05)
[2021-05-11] MEDS: potassium chloride ER 20 mEq Tablet 40 MEQ PO ×2 (09:05→14:05)
[2021-05-11] MEDS: metoprolol tartrate 25 mg Tablet PO ×2 (09:05→18:00)
[2021-05-11] MEDS: aspirin 81 mg EC Tablet PO (09:06)
[2021-05-11] MEDS: metoclopramide 10 mg Tablet 5 MG PO (09:06)
[2021-05-11 11:11] LABS: Glucose Point of Care 194 mg/dL (70-110)
[2021-05-11 17:04] LABS: Glucose Point of Care 191 mg/dL (70-110)
[2021-05-11 21:02] LABS: Glucose Point of Care 168 mg/dL (70-110)
--- NOTE | 2021-05-11 21:29 | PM.PN ---
Subjective Subjective: She states he is doing much better he denies any further vomiting. Minimal residual nausea. Vitals/I&O/Wt Last Vital Signs Temp 97.9 F 05/11/21 20:00 Pulse 73 05/11/21 20:00 Resp 17 05/11/21 20:00 BP 170/82 05/11/21 20:00 Pulse Ox 95 05/11/21 20:00 05/11/21 05/11/21 05/11/21 06:59 14:59 22:59 Output Total 550 / 550 625 / 625 Balance -550 / 1555 -625 / -625 Weight last 48 hrs Weight 103.827 kg Weight 108.862 kg Physical Exam Narrative: at bedside Const: COMMON NORMALS: patient oriented x3 GENERAL APPEARANCE: not comfortable NUTRITIONAL APPEARANCE: overweight HENMT: COMMON NORMALS: oropharynx normal Neck/C-Spine: COMMON NORMALS: no JVD Resp: COMMON NORMALS: normal respiratory effort and clear to auscultation bilaterally AUSCULTATION: clear to auscultation bilaterally Cardio: COMMON NORMALS: no JVD, regular rhythm, S1 normal heart sound present, S2 normal heart sound present and No murmurs present (Cardio) RHYTHM: regular rhythm HEART SOUNDS: S1 normal heart sound present and S2 normal heart sound present GI: COMMON NORMALS: Normal to inspection, nondistended, normoactive bowel sounds present, Soft to palpation and non-tender PALPATION: Yes Soft to palpation and Yes Tenderness to palpation present (GI) (Minimally) Extremity: COMMON NORMALS: no joint enlargement and no pedal edema OTHER: L BKA with mostly healed wound with small open area on the medial aspect. No surrounding erythema. No drainage. Neuro: COMMON NORMALS: patient oriented x3 and moves all extremities Skin: COMMON NORMALS: no rashes or lesions noted GENERAL SKIN EXAM: no rashes or lesions noted Data : 05/11/21 04:00 05/11/21 04:00 Micro: Microbiology 05/10/21 10:44 Urine Culture - Preliminary Urine,Clean Catch A&P Assessment and plan (1) Acute renal failure superimposed on stage 3b chronic kidney disease: Appreciate nephrology recommendations. His acute kidney injury has actually been improving. Has not had dialysis since Wednesday. Currently recommendation for additional monitoring to decide whether he needs further dialysis. Status: Acute (2) Nausea and vomiting: Almost resolved. He would like to try advancing diet. Discontinue Byetta, Jardiance after discharge. Please refer for gastric emptying study for possible gastroparesis. He is agreeable. Continue to optimize blood pressure control after discharge, with hypertensive urgency on presentation. No abdominal pain. No acute process on CT abdomen pelvis otherwise. Lipase normal. Not in DKA. Antiemetics. No signs of obstruction, no NG for now. Status: Acute (3) Hypertensive urgency: Blood pressures are better. Possibly related to his symptoms. Continue home antihypertensives. Status: Acute (4) Microscopic hematuria: Cannot rule out UTI, although otherwise did not appear septic. Follow-up urine culture. No antibiotic for now as he is not otherwise having urinary symptoms. Follow-up hematuria for resolution on outpatient basis. Status: Acute (5) Hypokalemia: Status: Acute Plan DM2 with peripheral neuropathy: Discontinue Byetta, Jardiance given renal failure. Dialysis. Continue insulin. Clear liquid consistent carb diet. Please refer for gastric emptying study. Recent left BKA has been healing well. He has been putting triple antibiotic ointment on the small open area of the mostly healed wound. No drainage. No surrounding erythema. Other chronic medical conditions noted. Attestations Medical Necessity Statement*: Continue admission for assessment management of acute kidney injury pending decision regarding need for continuation of dialysis. Coding Level of Care Code Acute Pathology Tech for [facility] [place] Diagnoses Nausea and vomiting R11.2 Hypertensive urgency I16.0 Acute renal failure superimposed on stage 3b chronic kidney disease N17.9; N18.32 Microscopic hematuria R31.29 Hypokalemia E87.6
[2021-05-11] MEDS: bisacodyl 10 mg Supp PR (22:21)
[2021-05-11] MEDS: polyethylene glycol 3350 Pkt 17 gm PO (22:21)
[2021-05-12] VITALS: BP 174/80; PULSE 82; RESP 17; TEMP 36.5; O2SAT 93
[2021-05-12 01:54] LABS: Glucose Point of Care 98 mg/dL (70-110)
[2021-05-12 04:00] VITALS: BP 158/84; PULSE 72; RESP 17; TEMP 36.6; O2SAT 95
[2021-05-12 04:57] LABS: Basophils % 0.5 %; Eosinophils # 0.1 10^3/uL (0.0-0.8); Eosinophils % 1.6 %; Hematocrit 28.7 % (42.0-52.0); Hemoglobin 9.2 g/dL (11.7-16.6); Lymphocytes # 1.1 10^3/uL (0.8-4.8); Lymphocytes % 17.7 %; Mean Corpuscular HGB Conc 32.1 g/dL (30.0-36.0); Mean Corpuscular Volume 84.2 fl (80-94); Monocytes # 0.7 10^3/uL (0.2-0.9); Monocytes % 10.9 %; Neutrophils # 4.37 10^3/uL (1.8-7.7); Neutrophils % 68.8 %; Nucleated Red Blood Cells % 0 %; Platelet Count 157 10^3/cmm (130-400); Red Blood Count 3.41 10^6/uL (4.1-5.3); Red Cell Distribution Width 13.8 % (12.1-15.1); White Blood Count 6.3 10^3/uL (4.0-10.0)
[2021-05-12 05:13] LABS: Anion Gap 14.8 (5-19); Blood Urea Nitrogen 37 mg/dL (6-20); Calcium 7.4 mg/dL (8.5-10.5); Carbon Dioxide 27 mmol/L (22-29); Chloride 97 mmol/L (98-107); Glomerular Filtration Rate 18.1 mL/min (90-130); Glucose 111 mg/dL (65-115); Osmolality Calculated 291 mOsm/kg (285-295); Sodium 136 mmol/L (136-145)
[2021-05-12] MEDS: heparin 5,000 unit/mL INJ 1 mL 5000 UNIT SUBCUT (05:17)
[2021-05-12 05:30] LABS: Potassium 2.8 mmol/L (3.5-5.1)
[2021-05-12] MEDS: potassium chloride ER 20 mEq Tablet 40 MEQ PO ×2 (06:15→14:09)
[2021-05-12 06:33] LABS: Glucose Point of Care 117 mg/dL (70-110)
[2021-05-12 07:18] VITALS: BP 185/105; PULSE 83; RESP 13; TEMP 37.2; O2SAT 95
[2021-05-12] MEDS: metoprolol tartrate 25 mg Tablet PO (09:32)
[2021-05-12] MEDS: metoclopramide 10 mg Tablet 5 MG PO (09:32)
[2021-05-12] MEDS: hyDRALAzine 10 mg Tablet PO ×2 (09:32→14:09)
[2021-05-12] MEDS: sennosides-docusate Tablet 1 TAB PO (09:32)
[2021-05-12] MEDS: ferrous sulfate EC 325 mg Tablet PO (09:32)
[2021-05-12] MEDS: aspirin 81 mg EC Tablet PO (09:32)
[2021-05-12] MEDS: lisinopril 20 mg Tablet PO (09:32)
[2021-05-12 11:37] LABS: Glucose Point of Care 295 mg/dL (70-110)
--- NOTE | 2021-05-12 11:45 | P.PN_ITS ---
Subjective Subjective: This morning patient was sitting at the bedside no events he was extremely hungry advance his diet to GI soft No active vomiting Patient is making urine Not requiring oxygen 1 L urine output Potassium repleted Vitals/I&O/Wt Last Vital Signs Temp 98.9 F 05/12/21 07:18 Pulse 83 05/12/21 07:18 Resp 13 05/12/21 07:18 BP 185/105 05/12/21 07:18 Pulse Ox 95 05/12/21 07:18 05/11/21 05/12/21 05/12/21 22:59 06:59 14:59 Intake Total 360 / 360 Output Total 1000 / 1000 Balance -640 / -640 Weight last 48 hrs Weight 102.603 kg Weight 103.827 kg Physical Exam Narrative: Patient was sitting at the bedside Anasarca has improved Saturating well on room air Awake and alert Endorsing feeling hungry and thirsty Abdomen soft S1, S2 No signs of heart failure or anasarca EOMI, PERRLA Appropriate mood and affect No audible stridor or wheezing Data : 05/12/21 04:22 05/12/21 04:22 Micro: Microbiology 05/10/21 10:44 Urine Culture - Final Urine,Clean Catch A&P Assessment and plan (1) Hypokalemia: Status: Acute (2) Hypertensive urgency: Status: Acute (3) Microscopic hematuria: Status: Acute (4) Nausea and vomiting: Status: Acute (5) Diabetes mellitus with gastroparesis: Status: Acute (6) S/P BKA (below knee amputation): Status: Acute (7) Contrast dye induced nephropathy: Status: Acute Plan Diabetic gastroparesis: Symptoms as resolved Will need outpatient gastric emptying study Hypokalemia: Repleted ATN related to contrast-induced nephropathy requiring dialysis, patient was dialyzed Tuesdays and Saturdays, he is making good urine, 1 L overnight, creatinine 3.5, Hypervolemia and acidosis improved No acute indication for dialysis Nephrology is monitoring him for next few days to keep an eye on his output in order to decide whether he needs to continue dialysis or not Type 2 diabetes Consistent carb diet Hypertensive urgency: Escalate antihypertensive regimen, lisinopril 20 mg twice a day, amlodipine, Anemia of chronic disease Full code DVT prophylaxis: Heparin Attestations Medical Necessity Statement*: Continue hospitalization Time Spent in Patient Care: 20min Coding Level of Care Code Acute Dipper And Drier for Chg Fwd Diagnoses Hypokalemia E87.6 Hypertensive urgency I16.0 Microscopic hematuria R31.29 Nausea and vomiting R11.2 Diabetes mellitus with gastroparesis E11.43 S/P BKA (below knee amputation) Z89.519 Contrast dye induced nephropathy N14.1; T50.8X5A
--- NOTE | 2021-05-12 11:57 | PC.CHAP ---
Pastoral Care Encounter/Spiritual Assessment Type of Contact [] Declined umbrella mender visit [] Patient/Family/Request visit [] Outpatient visit [] Follow-up visit [] Physician referral [] Code/Alert [x] Routine visit [] Staff referral [] Actively dying [] Patient sleeping [] Family support [] [] Out of room [] Palliative care [] [] Receiving care in room [] Pre-surgical visit [] Trauma [] Long length of stay [] ICU visit [] Other: Relational/Emotional Strength [x] Patient feels connected with others/family/visitors/staff [] Distress [] Loneliness/isolation [] Abandonment Spirituality of Patient [x] Person of Jania [x] Attends Judaism of their Jania [x] Believes in Prayer [] Reads Bible or Congregational materials [] There are Spiritual issues to be addressed 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 Handler Interventions [x] Prayer [x] Active listening x] Non-anxious presence [x] Spiritual/emotional support [] Crisis/trauma care [] Spiritual counseling [] Bereavement support [] Provided bereavement packet [] Provided Bible/devotional materials [] Provided toy/stuffed animal, coloring book to patient or family member [] Provided Communion [] Anointing/[place] [] Salvation [x] Completed spiritual assessment [] Other: Impact on Illness or Injury [] Angry [] Fearful [] Anxious [] Often cries [] Exhaustion [] Unable to work [] Unable to attend adventist [] Unable to walk/stand [] Unable to read [] Unable to drive [] Unable to eat/drink [] Unable to sleep [] Unable to be with family [] Patient intubated [] Other: Summary Time spent with patient 15 min
[2021-05-12 12:00] VITALS: BP 154/80; PULSE 75; RESP 14; TEMP 37.2; O2SAT 95
--- NOTE | 2021-05-12 13:37 | P.DS_ITS ---
Discharge Providers Date of Admission: 05/10/21 16:19 Date of Discharge: May 12, 2021 Attending Provider at Admission: Huey Sanchez Attending Provider at Discharge: Woodrow Metzger MD Primary Care Provider: MARK Kilpatrick Diagnoses at Discharge Discharge Diagnosis (1) Hypokalemia: Status: Acute (2) Hypertensive urgency: Status: Acute (3) Microscopic hematuria: Status: Acute (4) Nausea and vomiting: Status: Acute (5) Diabetes mellitus with gastroparesis: Status: Acute (6) S/P BKA (below knee amputation): Status: Acute (7) Contrast dye induced nephropathy: Status: Acute Reason for Visit Reason for Visit: Vomiting for a week, High BP 223/110, Sugar high Hospital Course Hospital Course This note was done by Dr. Laura Rahman 56-year-old gentleman with recent admission initially with hyperglycemia, HHS, also with noted left lower extremity infection unresponsive to antibiotics, status post BKA, contrast-induced nephropathy, has been requiring hemodialysis since which he is receiving 3 right chest tunneled catheter on Tuesdays and Saturdays.? He has started feeling unwell around Wednesday with progressive/persistent episodes of nausea, vomiting, unable to tolerate oral intake, his states has taken minimal water, some yogurt/pudding.? Has not had a bowel movement in a while.? Some elevation of blood sugars noted at home.? Here blood glucose is 154.? Denies any NSAID use. Denies abdominal pain beyond soreness of the abdominal wall.? Passing gas.? Denies abdominal surgeries.? Denies headache, has been having some motion sickness when being driven in the car, but denies dizziness or vertigo.? In ER he is afebrile, minimal leukocytosis 10.4, ABG 7.47/41.2/23.4/30.2.? Sodium 134, potassium 2.9, chloride 93.? BUN 40, creatinine 3.5.? Bicarb 26.? Anion gap 17.9.? Lipase is normal. UA with 3+ protein, 1+ glucose, 3+ blood, 25-40 RBC, no WBC, 0-4 squamous epithelial cells.? Urine ketones and serum ketones negative.? Contrast CT abdomen and pelvis obtained in ER without significant interval change.? Mild anasarca. In ER received bolus of LR, received Zofran, Phenergan, morphine, hydralazine, amlodipine, labetalol, due to hypertensive urgency on presentation, blood pressure as high as 242/118. currently down to 185/90. Hospital course Patient was admitted for management evaluation of diabetic gastroparesis. His symptoms improved, his diet was advanced on 05/12. Prescription was given for outpatient gastric emptying study. During this hospitalization despite being dehydrated he did make adequate urine, Dr. Avila recommended removal of dialysis catheter, case was discussed with Dr. Limon who is planning to monitor him for at least 7 to 10 days more before making final decision of remove the catheter in his clinic. Hypertensive urgency: Improved, Secondary to high creatinine I would hold his lisinopril for now, add amlodipine to his home regimen of hydralazine, Lasix, metoprolol For his hypokalemia I have added potassium supplementation, instructions were given to the patient to take potassium only on daily when he is taking Lasix Repeat BMP every 3 days Physical Exam Narrative: Patient was sitting at the bedside Anasarca has improved Saturating well on room air Awake and alert Endorsing feeling hungry and thirsty Abdomen soft S1, S2 No signs of heart failure or anasarca EOMI, PERRLA Appropriate mood and affect No audible stridor or wheezing Discharge Data Studies Completed and Pending Completed Studies During Hospitalization Category Date Time Status CT abdomen pelvis w con* [id number] Stat Cat Scan 05/10/21 11:34 Completed Pending at discharge Category Date Time Status Basic Metabolic Panel AM LABS Lab 05/13/21 04:00 Ordered Basic Metabolic Panel AM LABS Lab 05/14/21 04:00 Ordered Complete Blood Count w/Auto AM LABS Lab 05/13/21 04:00 Ordered Complete Blood Count w/Auto AM LABS Lab 05/14/21 04:00 Ordered Radiology Impressions Abdomen/Pelvis CT 05/10/21 11:34 IMPRESSION: 1. No significant interval change. 2. Additional findings, as above. Laboratory Results WBC 6.3 10^3/uL (4.0-10.0) 05/12/21 04:22 RBC 3.41 10^6/uL (4.1-5.3) L 05/12/21 04:22 Hgb 9.2 g/dL (11.7-16.6) L 05/12/21 04:22 Hct 28.7 % (42.0-52.0) L 05/12/21 04:22 MCV 84.2 fl (80-94) 05/12/21 04:22 MCH 27.0 pg (28.0-34.0) L 05/12/21 04:22 MCHC 32.1 g/dL (30.0-36.0) 05/12/21 04:22 RDW 13.8 % (12.1-15.1) 05/12/21 04:22 Plt Count 157 10^3/cmm (130-400) 05/12/21 04:22 MPV 9.0 fL (7.4-10.4) 05/12/21 04:22 Neut % (Auto) 68.8 % 05/12/21 04:22 Lymph % (Auto) 17.7 % 05/12/21 04:22 Becker % (Auto) 10.9 % 05/12/21 04:22 Eos % (Auto) 1.6 % 05/12/21 04:22 Baso % (Auto) 0.5 % 05/12/21 04:22 Neut # (Auto) 4.37 10^3/uL (1.8-7.7) 05/12/21 04:22 Lymph # (Auto) 1.1 10^3/uL (0.8-4.8) 05/12/21 04:22 Becker # (Auto) 0.7 10^3/uL (0.2-0.9) 05/12/21 04:22 Eos # (Auto) 0.1 10^3/uL (0.0-0.8) 05/12/21 04:22 Baso # (Auto) 0.0 10^3/uL (0.0-0.1) 05/12/21 04:22 Nucleated RBC % (auto) 0 % 05/12/21 04:22 Nucleated RBCs # 0.0 /100WBC 05/12/21 04:22 Specimen Type Arterial 05/10/21 11:39 Sample Site Radial, left 05/10/21 11:39 ABG pH 7.47 (7.35-7.45) H 05/10/21 11:39 ABG pCO2 41.2 mmHg (35-45) 05/10/21 11:39 ABG pO2 73.4 mmHg (80.0-100.0) L 05/10/21 11:39 ABG HCO3 30.2 mmol/L (22-26) H 05/10/21 11:39 ABG O2 Saturation 95.8 05/10/21 11:39 ABG Base Excess 6.0 mmol/L (-2.0-2.0) H 05/10/21 11:39 Bj Test Pos 05/10/21 11:39 A-a O2 Gradient 3.2 mmHg (5-10) L 05/10/21 11:39 Hematocrit 35.5 % (42-52) L 05/10/21 11:39 Hgb O2 Saturation 93.3 % (95-100) L 05/10/21 11:39 Carboxyhemoglobin 1.8 %THgb (0.4-20.1) 05/10/21 11:39 Methemoglobin 0.8 % (0.4-1.5) 05/10/21 11:39 Total Hemoglobin 11.6 g/dL (14-18) L 05/10/21 11:39 Sodium 136.0 mmol/L (131-143) 05/10/21 11:39 Potassium 2.8 mmol/L (3.5-5.0) L 05/10/21 11:39 Glucose 141.0 mg/dL (70-115) H 05/10/21 11:39 Ionized Calcium 1.1 mmol/L (1.1-1.4) 05/10/21 11:39 O2 Delivery Device Room air 05/10/21 11:39 FiO2 21.0 % 05/10/21 11:39 Extrusion Utility Worker ID glc 05/10/21 11:39 Sodium 136 mmol/L (136-145) 05/12/21 04:22 Potassium 2.8 mmol/L (3.5-5.1) L* 05/12/21 04:22 Chloride 97 mmol/L (98-107) L 05/12/21 04:22 Carbon Dioxide 27 mmol/L (22-29) 05/12/21 04:22 Anion Gap 14.8 (5-19) 05/12/21 04:22 BUN 37 mg/dL (6-20) H 05/12/21 04:22 Creatinine 3.5 mg/dL (0.7-1.2) H 05/12/21 04:22 GFR Calculation 18.1 mL/min (90-130) L 05/12/21 04:22 Glucose 111 mg/dL (65-115) 05/12/21 04:22 POC Glucose 295 mg/dL (70-110) H 05/12/21 11:28 Calculated Osmolality 291 mOsm/kg (285-295) 05/12/21 04:22 Lactic Acid 0.8 mmol/L (0.5-2.2) 05/10/21 10:53 Calcium 7.4 mg/dL (8.5-10.5) L 05/12/21 04:22 Magnesium 2.0 mg/dL (1.7-2.3) 05/10/21 10:40 Total Bilirubin 0.5 mg/dL (0.15-1.2) 05/11/21 04:00 AST 10 U/L (0-40) 05/11/21 04:00 ALT 6 U/L (0-41) 05/11/21 04:00 Alkaline Phosphatase 55 IU/L (40-130) 05/11/21 04:00 Creatine Kinase 51 U/L (39-308) 05/10/21 10:40 Total Protein 5.0 g/dL (6.6-8.7) L D 05/11/21 04:00 Albumin 3.2 g/dL (3.5-5.2) L 05/11/21 04:00 Globulin 1.8 g/dL (1.3-4.6) 05/11/21 04:00 Lipase 18 U/L (13-60) 05/10/21 10:40 Urine Color Straw (Yellow) 05/10/21 10:44 Urine Appearance Clear (CLEAR) 05/10/21 10:44 Urine pH 7 (5-7) 05/10/21 10:44 Ur Specific [place] 1.010 (1.005-1.030) 05/10/21 10:44 Urine Protein 3+ (Negative) H 05/10/21 10:44 Urine Glucose (UA) 1+ (Normal) H 05/10/21 10:44 Urine Ketones Negative (Negative) 05/10/21 10:44 Urine Blood 3+ (Negative) H 05/10/21 10:44 Urine Nitrate Negative (Negative) 05/10/21 10:44 Urine Bilirubin Neg (Negative) 05/10/21 10:44 Urine Urobilinogen Norm mg/dL (Negative) 05/10/21 10:44 Ur Leukocyte Esterase Negative (Negative) 05/10/21 10:44 Urine RBC 25-40 /hpf (0-2) H 05/10/21 10:44 Urine WBC None /hpf (0-5) 05/10/21 10:44 Ur Squamous Epith Cells 0-4 /hpf (0-5) H 05/10/21 10:44 Amorphous Sediment Not Reportable 05/10/21 10:44 Urine Bacteria Trace /hpf (NONE) 05/10/21 10:44 Serum Ketones Negative (Negative) 05/10/21 10:40 Vitals Last Vital Signs Temp 98.9 F 05/12/21 12:00 Pulse 75 05/12/21 12:00 Resp 14 05/12/21 12:00 BP 154/80 05/12/21 12:00 Pulse Ox 95 05/12/21 12:00 Discharge Plan Discharge Patient Disposition: Home Condition: Stable Prescriptions: New potassium chloride 20 mEq tablet extended release 20 meq PO DAILY Qty: 30 0RF Zofran 4 mg tablet 4 mg PO DAILY PRN (Reason: nausea and vomiting) Qty: 90 0RF Reglan 5 mg tablet 5 mg PO Q12H PRN (Reason: nausea and vomiting) Qty: 60 0RF hydralazine 25 mg tablet 25 mg PO TID Qty: 90 1RF amlodipine 10 mg tablet 10 mg PO DAILY Qty: 30 0RF Continued aspirin [Adult Aspirin Regimen] 81 mg tablet,delayed release (DR/EC) 81 mg PO DAILY 0RF (DME) FreeStyle Julius 2 Sensor Kit See Rx Instructions .ROUTE .MEDSUPPLY Qty: 1 3RF Rx Instructions: Apply one sensor and change every 14 days. 2 sensors per 28 days pantoprazole [Protonix] 40 mg tablet,delayed release (DR/EC) 40 mg PO BID 30 Days Qty: 60 0RF ondansetron HCl [Zofran] 4 mg tablet 4 mg PO Q6H PRN (Reason: nausea and vomiting) Qty: 20 0RF insulin aspart U-100 [Novolog Flexpen U-100 Insulin] 100 unit/mL (3 mL) Insulin Pen See Rx Instructions .ROUTE .COMPLEX 0RF Rx Instructions: SLIDING SCALE Iron (ferrous sulfate) 325 mg (65 mg iron) tablet 325 mg PO EVERY OTHER DAY 0RF promethazine 50 mg suppository 50 mg AL Q6H PRN (Reason: nausea and vomiting) Qty: 12 2RF Reglan 5 mg tablet 5 mg PO DAILY Qty: 30 3RF Byetta 10 mcg/dose(250 mcg/mL) 2.4 mL pen injector 10 mcg SUBCUT DAILY 0RF Rx Instructions: 340b Jardiance 10 mg tablet 10 mg PO DAILY 0RF metoprolol tartrate 25 mg tablet 25 mg PO BID Qty: 60 0RF oxycodone 5 mg tablet 5 mg PO TID PRN (Reason: pain) Qty: 20 0RF sennosides-docusate sodium [Senna-Time S] 8.6-50 mg tablet 1 tab-cap PO DAILY Qty: 20 0RF sodium bicarbonate 650 mg tablet 650 mg PO TID Qty: 90 2RF furosemide [Lasix] 20 mg tablet 20 mg PO DAILY Qty: 60 0RF Levemir U-100 Insulin 100 unit/mL solution 17 unit SUBCUT BID Qty: 10 6RF Held lisinopril 20 mg tablet 20 mg PO DAILY Qty: 60 1RF Hold Instructions: Resume on 06/02/21. Discontinued hydralazine 10 mg tablet 10 mg PO TID Qty: 90 0RF Discharge Orders: Discharge Order (Routine); Ordered 05/12/21 Ordered By: Woodrow Metzger Other Ambulatory Orders: Basic Metabolic Panel (Routine) Timeframe: 3 Days Facility: [facility] - Location: Lab - Main Lab Ordered By: Woodrow Metzger [place] [address] (Routine) Timeframe: 10 Day Facility: [facility] - Location: Radiology Ordered By: Woodrow Metzger [place] [facility] [place]) [Outside] Sarika Corbin FNP [Primary Care Provider] - Sergo Limon MD [Physician] - 7-10 days (Tunnel dialysis catheter removal) Discharge Diet: Cardiac and Diabetic Discharge Activity: Increase activity as tolerated Patient Instructions: Opioid Safety Discharge Attestations Time Spent in Discharge Care*: less than 30 min Status at Discharge: Cognitive status at discharge: cognitively intact , Behavioral status at discharge: cooperative , Quality Metrics Clinical Quality Measures [ No reported AMI, CVA or VTE this stay] Coding Level of Care Code Acute Chg FW DC note Diagnoses Hypokalemia E87.6 Hypertensive urgency I16.0 Microscopic hematuria R31.29 Nausea and vomiting R11.2 Diabetes mellitus with gastroparesis E11.43 S/P BKA (below knee amputation) Z89.519 Contrast dye induced nephropathy N14.1; T50.8X5A
[2021-05-12] MEDS: amlodipine 10 mg Tablet PO (14:09)
--- NOTE | 2021-05-12 15:58 | PM.PN ---
Subjective Subjective: Mr. Kruger is doing very well today with no acute complaints. Excellent urine output. Minimal global edema. Overall feels very well. Keen to go home however we are all very pleased that he is now recovering from renal failure. Vitals/I&O/Wt Last Vital Signs Temp 98.9 F 05/12/21 12:00 Pulse 75 05/12/21 12:00 Resp 14 05/12/21 12:00 BP 154/80 05/12/21 12:00 Pulse Ox 95 05/12/21 12:00 05/12/21 05/12/21 05/12/21 06:59 14:59 22:59 Intake Total 360 / 360 Output Total 1000 / 1000 Balance -640 / -640 Weight last 48 hrs Weight 102.603 kg Weight 103.827 kg Physical Exam Narrative: Constitutional: Awake, comfortable HEENT: Wet mucosa, no jvp, non icteric Lungs: Bilaterally clear without discernible wheeze or rales in all lung zones CVS: S1 S2, no murmurs Abdo: Soft, BS ok Ext 4: Minimal edema, peripheral perfusion with no cyanosis Neurological: Grossly non-focal Data : 05/12/21 04:22 05/12/21 04:22 Micro: Microbiology 05/10/21 10:44 Urine Culture - Final Urine,Clean Catch A&P Assessment and plan (1) Acute renal failure superimposed on stage 3b chronic kidney disease: Status: Acute Plan 1. Acute kidney injury He developed renal failure during his recent hospitalization following contrast and also in the setting of sepsis. Creatinine now downtrending without dialysis Permacath can come out Dose medication for GFR less than 15 Avoid usual nephrotoxic agents Ins and outs 2. Nausea and vomiting Resolved Differential includes medication related, gastroparesis. Currently on antiemetics comanagement per medical team. 3. Chemistry Quite profound hypokalemia, replacement given Chemistry otherwise looks pretty stable. 4. Hypertension Blood pressure elevated coming into the hospital but did come down after initiation of outpatient medications, continue to monitor closely during his hospital stay. OK for discharge after permacath removal carmela Thank you for consultation, as always it is a pleasure to follow these cases with you Kristofer Noble MD Nephrology [phone] Patient seen and examined via telemedicine, with the assistance of the bedside RN > 25 min spent in evaluation and mgmt of patient Attestations Medical Necessity Statement*: eval for ALESIA Coding Level of Care Code Acute Grounds Maintenance Supervisor for Chg Fwd Diagnoses Acute renal failure superimposed on stage 3b chronic kidney disease N17.9; N18.32
[2021-05-12 16:09] VITALS: BP 154/80; PULSE 75; RESP 14; TEMP 37.2; O2SAT 95
--- NOTE | 2021-05-12 16:11 | PC.NURSE ---
DISCHARGE PAPERWORK GONE OVER WITH PT. ALL QUESTIONS ANSWERED. IV REMOVED. PT TOLERATED WELL. CATHETER TIP INTACT. PT SAFELY WHEELED OUT OF HOSPITAL.
== END 2021-05-12 16:11 | disposition home or self-care (01) ==
LOC: ER 15:05 → MEDSURG 17:32
PROVIDERS: Admitting Provider Internal Medicine; Emergency Provider Family Medicine; PCP Nurse Practitioner Family; Visit Provider Internal Medicine
DX: E11.22 Type 2 diabetes mellitus with diabetic chronic kidney disease (principal); I12.9 Hypertensive chronic kidney disease with stage 1 through stage 4 chronic kidney disease, or unspecified chronic kidney disease; N18.32 Chronic kidney disease, stage 3b; E87.6 Hypokalemia; I16.0 Hypertensive urgency; R31.29 Other microscopic hematuria; R11.2 Nausea with vomiting, unspecified; E11.43 Type 2 diabetes mellitus with diabetic autonomic (poly)neuropathy; Z89.519 Acquired absence of unspecified leg below knee; T50.8X5A Adverse effect of diagnostic agents, initial encounter; N14.1 Nephropathy induced by other drugs, medicaments and biological substances; Z79.82 Long term (current) use of aspirin; Z79.4 Long term (current) use of insulin; E78.2 Mixed hyperlipidemia
CPT/HCPCS: 36415; 36416; 36600; 74177; 80048; 80051; 80053; 81001; 82009; 82330; 82550; 82805; 82962; 83605; 83690; 83735; 85025; 87086; 96365; 96366; 96372; 96375; 96376; 99285; G0378; J0360; J1630; J1644; J1815; J2270; J2405; J2550; J3480; J3490; J8597; Q9967

== ENCOUNTER 2021-05-19 | Outpatient (CLI) | payer OTHER, SELFPAY ==
[2021-05-19 17:19] LABS: Anion Gap 15.5 (5-19); Blood Urea Nitrogen 32 mg/dL (6-20); Calcium 8.8 mg/dL (8.5-10.5); Carbon Dioxide 26 mmol/L (22-29); Chloride 99 mmol/L (98-107); Glomerular Filtration Rate 22.5 mL/min (90-130); Glucose 151 mg/dL (65-115); Osmolality Calculated 292 mOsm/kg (285-295); Potassium 4.5 mmol/L (3.5-5.1); Sodium 136 mmol/L (136-145)
== END 2021-05-19 23:59 | disposition home or self-care (01) ==
LOC: LAB 10-07 09:23
PROVIDERS: Internal Medicine; PCP Nurse Practitioner Family; Visit Provider Family Medicine
DX: N17.0 Acute kidney failure with tubular necrosis (principal)
CPT/HCPCS: 80048

== ENCOUNTER 2021-05-26 17:49 | Outpatient (CLI) | payer OTHER, SELFPAY ==
[2021-05-26 18:34] LABS: Chloride 101 mmol/L (98-107); Potassium 4.1 mmol/L (3.5-5.1); Sodium 137 mmol/L (136-145)
[2021-05-26 18:59] LABS: Anion Gap 18.1 (5-19); Blood Urea Nitrogen 34 mg/dL (6-20); Calcium 8.9 mg/dL (8.5-10.5); Carbon Dioxide 22 mmol/L (22-29); Glomerular Filtration Rate 29.4 mL/min (90-130); Glucose 268 mg/dL (65-115); Osmolality Calculated 301 mOsm/kg (285-295)
== END 2021-05-26 17:50 | disposition home or self-care (01) ==
LOC: LAB 17:52
PROVIDERS: PCP Nurse Practitioner Family; Visit Provider Nurse Practitioner Family
DX: Z47.81 Encounter for orthopedic aftercare following surgical amputation (principal)
CPT/HCPCS: 80048

== ENCOUNTER 2021-06-02 16:52 | Outpatient (CLI) | payer OTHER, SELFPAY ==
[2021-06-02 17:08] LABS: Basophils % 0.4 %; Eosinophils # 0.1 10^3/uL (0.0-0.8); Eosinophils % 1.8 %; Hemoglobin 11.3 g/dL (11.7-16.6); Lymphocytes # 1.3 10^3/uL (0.8-4.8); Mean Corpuscular HGB Conc 32.3 g/dL (30.0-36.0); Mean Corpuscular Hemoglobin 26.8 pg (28.0-34.0); Mean Corpuscular Volume 83.1 fl (80-94); Mean Platelet Volume 9.7 fL (7.4-10.4); Monocytes # 0.5 10^3/uL (0.2-0.9); Monocytes % 7.1 %; Neutrophils # 5.19 10^3/uL (1.8-7.7); Neutrophils % 71.7 %; Nucleated Red Blood Cells % 0 %; Platelet Count 305 10^3/cmm (130-400); Red Blood Count 4.21 10^6/uL (4.1-5.3); Red Cell Distribution Width 14.1 % (12.1-15.1); White Blood Count 7.2 10^3/uL (4.0-10.0)
[2021-06-02 17:27] LABS: Estmated Average Glucose 174; Hemoglobin A1C 7.7 % (4.0-6.0)
[2021-06-02 17:30] LABS: Blood Urea Nitrogen 37 mg/dL (6-20); Glomerular Filtration Rate 25.5 mL/min (90-130)
== END 2021-06-02 16:53 | disposition home or self-care (01) ==
LOC: LAB 16:55
PROVIDERS: PCP Nurse Practitioner Family; Visit Provider Nurse Practitioner Family
DX: Z01.89 Encounter for other specified special examinations (principal)
CPT/HCPCS: 82565; 83036; 84520; 85025

== ENCOUNTER 2021-10-03 16:35 | Inpatient (IN) | payer OTHER, SELFPAY ==
[2021-10-03] VITALS (10 sets, daily range): BP systolic 153–228; BP diastolic 64–114; PULSE 103–118; RESP 16–25; O2SAT 90–98; BMI 37.1
--- NOTE | 2021-10-03 17:06 | ED_ITS ---
Documented by User: Tony Prado MD 10/14/21 04:40 HPI - Nausea/Vomiting/Diarrhea General: Chief complaint: Nausea/Vomiting/Diarrhea Stated complaint: N/V, Diabetic Time Seen by Provider: 10/03/21 17:05 Limitations: altered mental status History of Present Illness: Mr. Kruger is a 56-year-old gentleman with history of hypertension, hyperlipidemia, diabetes who presents to the emergency department due to disorientation, weakness, nausea vomiting and diarrhea. Patient has had a complex recent past history including history of being on dialysis though no longer and left BKA for osteomyelitis and foot wounds. Patient apparently has been off of his medications now for a number of weeks and has been more significantly ill over the past days. Overall course of symptoms has worsened. Intensity is moderate to severe. No other specific changes in health, exacerbating, or alleviating factors identified. Review of Systems General: Reports: ROS unobtainable due to mental status PFS ED PFSH: Medical History Acquired rearfoot varus Acute renal failure superimposed on stage 3b chronic kidney disease Chronic renal impairment 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 Diabetes mellitus with gastroparesis Diabetes type 2, uncontrolled Diabetic foot infection Diabetic peripheral neuropathy associated with type 2 diabetes mellitus DKA (diabetic ketoacidosis) Essential hypertension Foot abscess, left Hyperlipidemia associated with type 2 diabetes mellitus Hyperlipidemia, mixed Hyperosmolar hyperglycemic state (HHS) Hypertensive urgency Hypokalemia Microscopic hematuria Nausea and vomiting Osteomyelitis Peripheral arterial disease Prosthesis fitting Statin intolerance Surgical History Amputated toe of right foot secondary to osteomyelitis 4th right toe History of amputation of lesser toe History of partial amputation of toe of right foot S/P BKA (below knee amputation) (04/05/21) S/P hemodialysis catheter insertion Family History Father Diabetes Mother Diabetes Other Hypertension Social History Smoking and tobacco status: never smoked Second hand smoke exposure: No Smoking risk assessment/counseling performed?: No Alcohol intake: former Desire information about alcohol rehabilitation?: No Counseling given: No Desire information about substance/drug rehabilitation?: No Counseling given: No Adopted: No Caregiver/support person: No Lives independently: Yes Household members: spouse Housing: House Marital status: service: No Current occupational status: employed Pets and animals: Yes History of recent travel: No Current gender identity: Male Physical Exam Const: COMMON NORMALS: alert GENERAL APPEARANCE: cooperative, well developed and ill appearing HENMT: COMMON NORMALS: normocephalic and atraumatic HEAD & SCALP: normocephalic and atraumatic THROAT: posterior oropharynx normal (Dry) Eye: COMMON NORMALS: conjunctivae normal CONJUNCTIVA: Yes conjunctivae normal SCLERA: sclerae normal Neck/C-Spine: COMMON NORMALS: supple GENERAL: Yes trachea midline Resp: EFFORT & INSPECTION: Yes able to speak in complete sentences and Yes tachypneic Cardio: COMMON NORMALS: regular rhythm RATE: tachycardic RHYTHM: regular rhythm GI: COMMON NORMALS: Soft to palpation PALPATION: Yes Soft to palpation, Yes Tenderness to palpation present (GI), No Guarding due to palpation present (GI) and No Rigid due to palpation Extremity: GENERAL: Yes normal exam except as noted and No edema Neuro: COMMON NORMALS: CN's II-XII intact bilaterally, moves all extremities, no focal motor deficits and no sensory deficits noted SENSORIUM/ORIENTATION: Yes alert and No Orientation impaired Psych: OTHER: Mild impairment in mental status, limitation in history. Course ED course: - Patient was seen and evaluated by me at bedside - Patient placed on cardiac monitors, IV access obtained - Initial evaluation notable for exam as above. Somewhat encephalopathic though no focal neurologic abnormalities identified. - Labs and xrays personally interpreted by me. EKG showing sinus tachycardia with first-degree AV block, no STEMI. - Fluids, analgesia given - Labs notable for leukocytosis which may be reactive, normal hemoglobin. Metab olic panel with evidence of dehydration, DKA versus HHS. - Insulin ordered - Imaging notable for left basilar infiltrate, no pneumothorax. No acute intracranial pathology to explain symptoms. CT chest abdomen pelvis without acute pathology. - Patient care handed off to Dr. Ring pending completion of ED evaluation including imaging reads and admission to hospital. Vital Signs: Vital signs: Vital Signs Temperature 98.4 F 10/04/21 16:00 Pulse Rate 95 10/05/21 08:00 Respiratory Rate 16 10/03/21 23:00 Blood Pressure 167/85 10/05/21 10:00 Pulse Oximetry 96 10/05/21 08:00 Oxygen Delivery Me thod 10/05/21 08:00 MDM - Nausea/Vomiting/Diarrhea Medical Decision Making 56-year-old gentleman presenting with moderate to significant illness in the context of not taking medication. Handed off to Dr. Ring pending completion of ED evaluation. Patient presents here with DKA elevated glucose and anion gap we will start him on insulin drip I spoke to hospitalist will admit to ICU. Medical Records I reviewed the patient's medical records. Lab Data I reviewed the patient's lab results. : 10/05/21 03:17 10/05/21 03:17 Radiology Impressions Chest X-Ray 10/03/21 17:09 IMPRESSION: Left basilar atelectasis. Pneumonia should be excluded clinically. Abdomen/Pelvis CT 10/03/21 17:43 IMPRESSION: No acute findings. Head CT 10/03/21 17:43 IMPRESSION: No acute abnormality of the brain. Laboratory Results WBC 12.3 10^3/uL (4.0-10.0) H 10/03/21 19:52 Corrected WBC Cancelled 10/03/21 17:23 RBC 4.93 10^6/uL (4.1-5.3) 10/03/21 19:52 Hgb 13.9 g/dL (11.7-16.6) 10/03/21 19:52 Hct 42.9 % (42.0-52.0) 10/03/21 19:52 MCV 87.0 fl (80-94) 10/03/21 19:52 MCH 28.2 pg (28.0-34.0) 10/03/21 19:52 MCHC 32.4 g/dL (30.0-36.0) 10/03/21 19:52 RDW 12.9 % (12.1-15.1) 10/03/21 19:52 Plt Count 314 10^3/cmm (130-400) 10/03/21 19:52 MPV 10.7 fL (7.4-10.4) H 10/03/21 19:52 Gran % Cancelled 10/03/21 17:23 Neut % (Auto) 90.0 % 10/03/21 19:52 Lymph % (Auto) 3.6 % 10/03/21 19:52 Cooper % (Auto) 4.7 % 10/03/21 19:52 Eos % (Auto) 0.0 % 10/03/21 19:52 Baso % (Auto) 0.2 % 10/03/21 19:52 Neut # (Auto) 11.09 10^3/uL (1.8-7.7) H 10/03/21 19:52 Lymph # (Auto) 0.4 10^3/uL (0.8-4.8) L 10/03/21 19:52 Cooper # (Auto) 0.6 10^3/uL (0.2-0.9) 10/03/21 19:52 Eos # (Auto) 0.0 10^3/uL (0.0-0.8) 10/03/21 19:52 Baso # (Auto) 0.0 10^3/uL (0.0-0.1) 10/03/21 19:52 Absolute Gran (auto) Cancelled 10/03/21 17:23 Nucleated RBC % (auto) 0 % 10/03/21 19:52 Nucleated RBCs # 0.0 /100WBC 10/03/21 19:52 Specimen Type Arterial 10/03/21 17:11 Sample Site Radial, left 10/03/21 17:11 ABG pH 7.33 (7.35-7.45) L 10/03/21 17:11 ABG pCO2 33.3 mmHg (35-45) L 10/03/21 17:11 ABG pO2 87.4 mmHg (80.0-100.0) 10/03/21 17:11 ABG HCO3 17.3 mmol/L (22-26) L 10/03/21 17:11 ABG Base Excess -7.6 mmol/L (-2.0-2.0) L 10/03/21 17:11 Bj Test Pos 10/03/21 17:11 Hematocrit 47.6 % (42-52) 10/03/21 17:11 O2 Delivery Device Room air 10/03/21 17:11 FiO2 21.0 % 10/03/21 17:11 Blue Leather Setter ID Cak 10/03/21 17:11 Sodium 128 mmol/L (136-145) L 10/03/21 17:23 Potassium 5.3 mmol/L (3.5-5.1) H 10/03/21 17:23 Chloride 84 mmol/L (98-107) L 10/03/21 17:23 Carbon Dioxide 15 mmol/L (22-29) L 10/03/21 17:23 Anion Gap 34.3 (5-19) H 10/03/21 17:23 BUN 40 mg/dL (6-20) H 10/03/21 17:23 Creatinine 2.3 mg/dL (0.7-1.2) H 10/03/21 17:23 GFR Calculation 29.4 mL/min (90-130) L 10/03/21 17:23 Glucose 979 mg/dL (65-115) H* 10/03/21 17:23 POC Glucose > 600 mg/dL (70-110) H* 10/03/21 19:51 Serum Osmolality 340 mOsm/kg (278-305) H 10/03/21 19:52 Calculated Osmolality 325 mOsm/kg (285-295) H 10/03/21 17:23 Calcium 9.7 mg/dL (8.5-10.5) 10/03/21 17:23 Total Bilirubin 0.3 mg/dL (0.15-1.2) 10/03/21 17:23 AST 11 U/L (0-40) 10/03/21 17:23 ALT 12 U/L (0-41) 10/03/21 17:23 Alkaline Phosphatase 105 IU/L (40-130) 10/03/21 17:23 Ammonia 21 umol/L (16-60) 10/03/21 19:52 Troponin T Baseline 28 ng/L (0-15) H 10/03/21 17:23 Troponin T 120 Minute 32.84 ng/L (0-15) H 10/03/21 19:52 Delta Troponin T 4.84 ABS# (0-10) 10/03/21 19:52 Total Protein 7.4 g/dL (6.6-8.7) 10/03/21 17:23 Albumin 4.0 g/dL (3.5-5.2) 10/03/21 17:23 Globulin 3.4 g/dL (1.3-4.6) 10/03/21 17:23 Lipase 1282 U/L (13-60) H 10/03/21 17:23 Urine Color Yellow (Yellow) 10/03/21 18:14 Urine Appearance Clear (CLEAR) 10/03/21 18:14 Urine pH 5 (5-7) 10/03/21 18:14 Ur Specific Perry 1.020 (1.005-1.030) 10/03/21 18:14 Urine Protein 3+ (Negative) H 10/03/21 18:14 Urine Glucose (UA) 4+ (Normal) H 10/03/21 18:14 Urine Ketones 1+ (Negative) H 10/03/21 18:14 Urine Blood 3+ (Negative) H 10/03/21 18:14 Urine Nitrate Negative (Negative) 10/03/21 18:14 Urine Bilirubin Neg (Negative) 10/03/21 18:14 Urine Urobilinogen Neg mg/dL (Negative) 10/03/21 18:14 Ur Leukocyte Esterase Negative (Negative) 10/03/21 18:14 Urine RBC 5-10 /hpf (0-2) H 10/03/21 18:14 Urine WBC 0-4 /hpf (0-5) H 10/03/21 18:14 Ur Squamous Epith Cells 0-4 /hpf (0-5) H 10/03/21 18:14 Amorphous Sediment Trace /hpf 10/03/21 18:14 Urine Bacteria Trace /hpf (NONE) 10/03/21 18:14 Urine Mucus Trace /hpf 10/03/21 18:14 Serum Ketones Negative (Negative) 10/03/21 19:52 Influenza Type A Ag Negative (Negative) 10/03/21 17:45 Influenza Type B Ag Negative (Negative) 10/03/21 17:45 SARS-CoV-2 Ag (Rapid) Negative (Negative) 10/03/21 17:36 Discharge Plan Discharge Patient Disposition: Admitted As Inpatient Admit Provider: Brittny Brenner Clinical Impression: DKA (diabetic ketoacidosis) Condition: Stable Coding Level of Care Code ED Family Practice Physician Assistant for [facility]wd Documented by User: Maya Ring MD 10/03/21 20:04 HPI - Nausea/Vomiting/Diarrhea General: Chief complaint: Nausea/Vomiting/Diarrhea Stated complaint: N/V, Diabetic Time Seen by Provider: 10/03/21 17:05 History of Present Illness: . [facility] ED PFSH: Medical History Acquired rearfoot varus Acute renal failure superimposed on stage 3b chronic kidney disease Chronic renal impairment 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 Diabetes mellitus with gastroparesis Diabetes type 2, uncontrolled Diabetic foot infection Diabetic peripheral neuropathy associated with type 2 diabetes mellitus DKA (diabetic ketoacidosis) Essential hypertension Foot abscess, left Hyperlipidemia associated with type 2 diabetes mellitus Hyperlipidemia, mixed Hyperosmolar hyperglycemic state (HHS) Hypertensive urgency Hypokalemia Microscopic hematuria Nausea and vomiting Osteomyelitis Peripheral arterial disease Prosthesis fitting Statin intolerance Surgical History Amputated toe of right foot secondary to osteomyelitis 4th right toe History of amputation of lesser toe History of partial amputation of toe of right foot S/P BKA (below knee amputation) (04/05/21) S/P hemodialysis catheter insertion Family History Father Diabetes Mother Diabetes Other Hypertension Social History Smoking and tobacco status: never smoked Second hand smoke exposure: No Smoking risk assessment/counseling performed?: No Alcohol intake: former Desire information about alcohol rehabilitation?: No Counseling given: No Desire information about substance/drug rehabilitation?: No Counseling given: No Adopted: No Caregiver/support person: No Lives independently: Yes Household members: spouse Housing: House Marital status: service: No Current occupational status: employed Pets and animals: Yes History of recent travel: No Current gender identity: Male Course Vital Signs: Vital signs: Vital Signs Temperature 98.4 F 10/04/21 16:00 Pulse Rate 95 10/05/21 08:00 Respiratory Rate 16 10/03/21 23:00 Blood Pressure 167/85 10/05/21 10:00 Pulse Oximetry 96 10/05/21 08:00 Oxygen Delivery Me thod 10/05/21 08:00 MDM - Nausea/Vomiting/Diarrhea Medical Decision Making Patient presents here with DKA elevated glucose and anion gap we will start him on insulin drip I spoke to hospitalist will admit to ICU. Lab Data : 10/05/21 03:17 10/05/21 03:17 Radiology Impressions Chest X-Ray 10/03/21 17:09 IMPRESSION: Left basilar atelectasis. Pneumonia should be excluded clinically. Abdomen/Pelvis CT 10/03/21 17:43 IMPRESSION: No acute findings. Head CT 10/03/21 17:43 IMPRESSION: No acute abnormality of the brain. Laboratory Results WBC 12.3 10^3/uL (4.0-10.0) H 10/03/21 19:52 Corrected WBC Cancelled 10/03/21 17:23 RBC 4.93 10^6/uL (4.1-5.3) 10/03/21 19:52 Hgb 13.9 g/dL (11.7-16.6) 10/03/21 19:52 Hct 42.9 % (42.0-52.0) 10/03/21 19:52 MCV 87.0 fl (80-94) 10/03/21 19:52 MCH 28.2 pg (28.0-34.0) 10/03/21 19:52 MCHC 32.4 g/dL (30.0-36.0) 10/03/21 19:52 RDW 12.9 % (12.1-15.1) 10/03/21 19:52 Plt Count 314 10^3/cmm (130-400) 10/03/21 19:52 MPV 10.7 fL (7.4-10.4) H 10/03/21 19:52 Gran % Cancelled 10/03/21 17:23 Neut % (Auto) 90.0 % 10/03/21 19:52 Lymph % (Auto) 3.6 % 10/03/21 19:52 Cooper % (Auto) 4.7 % 10/03/21 19:52 Eos % (Auto) 0.0 % 10/03/21 19:52 Baso % (Auto) 0.2 % 10/03/21 19:52 Neut # (Auto) 11.09 10^3/uL (1.8-7.7) H 10/03/21 19:52 Lymph # (Auto) 0.4 10^3/uL (0.8-4.8) L 10/03/21 19:52 Cooper # (Auto) 0.6 10^3/uL (0.2-0.9) 10/03/21 19:52 Eos # (Auto) 0.0 10^3/uL (0.0-0.8) 10/03/21 19:52 Baso # (Auto) 0.0 10^3/uL (0.0-0.1) 10/03/21 19:52 Absolute Gran (auto) Cancelled 10/03/21 17:23 Nucleated RBC % (auto) 0 % 10/03/21 19:52 Nucleated RBCs # 0.0 /100WBC 10/03/21 19:52 Specimen Type Arterial 10/03/21 17:11 Sample Site Radial, left 10/03/21 17:11 ABG pH 7.33 (7.35-7.45) L 10/03/21 17:11 ABG pCO2 33.3 mmHg (35-45) L 10/03/21 17:11 ABG pO2 87.4 mmHg (80.0-100.0) 10/03/21 17:11 ABG HCO3 17.3 mmol/L (22-26) L 10/03/21 17:11 ABG Base Excess -7.6 mmol/L (-2.0-2.0) L 10/03/21 17:11 Bj Test Pos 10/03/21 17:11 Hematocrit 47.6 % (42-52) 10/03/21 17:11 O2 Delivery Device Room air 10/03/21 17:11 FiO2 21.0 % 10/03/21 17:11 Blue Leather Setter ID Cak 10/03/21 17:11 Sodium 128 mmol/L (136-145) L 10/03/21 17:23 Potassium 5.3 mmol/L (3.5-5.1) H 10/03/21 17:23 Chloride 84 mmol/L (98-107) L 10/03/21 17:23 Carbon Dioxide 15 mmol/L (22-29) L 10/03/21 17:23 Anion Gap 34.3 (5-19) H 10/03/21 17:23 BUN 40 mg/dL (6-20) H 10/03/21 17:23 Creatinine 2.3 mg/dL (0.7-1.2) H 10/03/21 17:23 GFR Calculation 29.4 mL/min (90-130) L 10/03/21 17:23 Glucose 979 mg/dL (65-115) H* 10/03/21 17:23 POC Glucose > 600 mg/dL (70-110) H* 10/03/21 19:51 Serum Osmolality 340 mOsm/kg (278-305) H 10/03/21 19:52 Calculated Osmolality 325 mOsm/kg (285-295) H 10/03/21 17:23 Calcium 9.7 mg/dL (8.5-10.5) 10/03/21 17:23 Total Bilirubin 0.3 mg/dL (0.15-1.2) 10/03/21 17:23 AST 11 U/L (0-40) 10/03/21 17:23 ALT 12 U/L (0-41) 10/03/21 17:23 Alkaline Phosphatase 105 IU/L (40-130) 10/03/21 17:23 Ammonia 21 umol/L (16-60) 10/03/21 19:52 Troponin T Baseline 28 ng/L (0-15) H 10/03/21 17:23 Troponin T 120 Minute 32.84 ng/L (0-15) H 10/03/21 19:52 Delta Troponin T 4.84 ABS# (0-10) 10/03/21 19:52 Total Protein 7.4 g/dL (6.6-8.7) 10/03/21 17:23 Albumin 4.0 g/dL (3.5-5.2) 10/03/21 17:23 Globulin 3.4 g/dL (1.3-4.6) 10/03/21 17:23 Lipase 1282 U/L (13-60) H 10/03/21 17:23 Urine Color Yellow (Yellow) 10/03/21 18:14 Urine Appearance Clear (CLEAR) 10/03/21 18:14 Urine pH 5 (5-7) 10/03/21 18:14 Ur Specific Perry 1.020 (1.005-1.030) 10/03/21 18:14 Urine Protein 3+ (Negative) H 10/03/21 18:14 Urine Glucose (UA) 4+ (Normal) H 10/03/21 18:14 Urine Ketones 1+ (Negative) H 10/03/21 18:14 Urine Blood 3+ (Negative) H 10/03/21 18:14 Urine Nitrate Negative (Negative) 10/03/21 18:14 Urine Bilirubin Neg (Negative) 10/03/21 18:14 Urine Urobilinogen Neg mg/dL (Negative) 10/03/21 18:14 Ur Leukocyte Esterase Negative (Negative) 10/03/21 18:14 Urine RBC 5-10 /hpf (0-2) H 10/03/21 18:14 Urine WBC 0-4 /hpf (0-5) H 10/03/21 18:14 Ur Squamous Epith Cells 0-4 /hpf (0-5) H 10/03/21 18:14 Amorphous Sediment Trace /hpf 10/03/21 18:14 Urine Bacteria Trace /hpf (NONE) 10/03/21 18:14 Urine Mucus Trace /hpf 10/03/21 18:14 Serum Ketones Negative (Negative) 10/03/21 19:52 Influenza Type A Ag Negative (Negative) 10/03/21 17:45 Influenza Type B Ag Negative (Negative) 10/03/21 17:45 SARS-CoV-2 Ag (Rapid) Negative (Negative) 10/03/21 17:36 Critical Care Time Critical Care Time: Critical Care Time: Yes Total Critical Care Time: 40 Attestation: The high probability of a clinically significant, sudden or life threatening deterioration of the patient's endocrine system(s) required my full and direct attention, intervention and personal management. The critical care time is as shown. This time is in addition to time spent performing any reported procedures but includes the following: [x] Data and vital sign review and interpretation [x] Patient assessment, examination and intervention [x] Documentation [x] Medication orders and management Discharge Plan Discharge Patient Disposition: Admitted As Inpatient Admit Provider: Brittny Brenner Clinical Impression: DKA (diabetic ketoacidosis) Condition: Stable Coding Level of Care Code ED Family Practice Physician Assistant for [facility] [place]
--- NOTE | 2021-10-03 17:09 | XRR_ITS ---
PROCEDURE INFORMATION: Exam: XR Chest Exam date and time: 10/03/2021 5:16 PM Age: 56 years old Clinical indication: Screening exam; Other screening; Additional info: AMS TECHNIQUE: Imaging protocol: Radiologic exam of the chest. Views: 1 view. COMPARISON: CR XR chest 1V portable [id number] 04/20/2021 2:37 PM FINDINGS: Tubes, catheters and devices: Previously seen right IJ approach tunneled dialysis catheter has been removed. Lungs: Low lung volumes. Streaky left basilar atelectasis, which may represent atelectasis or pneumonia in the adequate clinical setting. Pleural spaces: Unremarkable. No pleural effusion. No pneumothorax. Heart/Mediastinum: Stable cardiomediastinal silhouette. Bones/joints: Unremarkable. XR/XR chest 1V portable [id number] IMPRESSION: Left basilar atelectasis. Pneumonia should be excluded clinically.
--- NOTE | 2021-10-03 17:09 | ECG_ITS ---
[facility] Test Date: 2021-10-03 Pat Name: Martir Kruger Department: Room: Gender: Male Direct Support Professional Caregiver: : 1965 Requested By: Tony Prado Order Number: [id number] Geraldo MD: Poonam Cary M.D. Measurements Intervals [place] Rate: 119 P: 82 IN: 238 QRS: 46 QRSD: 100 T: 42 QT: 315 QTc: 443 Interpretive Statements SINUS TACHYCARDIA WITH FIRST DEGREE AV BLOCK LEFT ATRIAL ENLARGEMENT [-0.15mV P-WAVE IN V1/V2] Compared to ECG 05/07/2021 00:23:08 First degree AV block now present Atrial abnormality now present Electronically Signed On 10-03-2021 17:35:58 CDT by Poonam Cary M.D. [id number]
[2021-10-03 17:22] LABS: ABG PCO2 33.3 mmHg (35-45); ABG PH Result 7.33 (7.35-7.45); Arterial Blood Gas Hematocrit 47.6 % (42-52); Base Excess ABG -7.6 mmol/L (-2.0-2.0); Blood Gas Allen Test Pos; Blood Gas Operator Identificat CAK; Blood Gas Sample Site Radial, left; Blood Gas Sample Type Arterial; HCO3 ABG 17.3 mmol/L (22-26); Oxygen Device ROOM AIR; PO2 ABG 87.4 mmHg (80.0-100.0)
[2021-10-03 17:27] LABS: Glucose Point of Care > 600 mg/dL (70-110)
[2021-10-03] MEDS: ondansetron 2 mg/ML SDV 2 mL 4 MG IVP ×2 (17:43→21:24)
[2021-10-03] MEDS: sodium chloride 0.9% 1,000 ML 999 ML IV ×2 (17:43→18:19)
--- NOTE | 2021-10-03 17:43 | CTR_ITS ---
PROCEDURE INFORMATION: Exam: CT Abdomen And Pelvis Without Contrast Exam date and time: 10/03/2021 7:03 PM Age: 56 years old Clinical indication: Nausea and vomiting; Patient HX: C/O n/v/d TECHNIQUE: Imaging protocol: Computed tomography of the abdomen and pelvis without contrast. Radiation optimization: All CT scans at this facility use at least one of these dose optimization techniques: automated exposure control; mA and/or kV adjustment per patient size (includes targeted exams where dose is matched to clinical indication); or iterative reconstruction. COMPARISON: CT abdomen pelvis w con* [id number] 05/10/2021 1:54 PM RADIATION DOSE METRICS: Total DLP (mGy-cm): 1060.13 FINDINGS: Liver: Normal. No mass. Gallbladder and bile ducts: Normal. No calcified stones. No ductal dilation. Pancreas: Normal. No ductal dilation. Spleen: Normal. No splenomegaly. Adrenal glands: Normal. No mass. Kidneys and ureters: No obstructing calculus. No hydronephrosis. Stomach and bowel: Unremarkable. No obstruction. No mucosal thickening. Appendix: No evidence of appendicitis. Intraperitoneal space: Unremarkable. No free air. No significant fluid collection. Vasculature: No abdominal aortic aneurysm. Lymph nodes: Nonenlarged calcified mediastinal hilar lymph nodes consistent with chronic granulomatous disease. Next item bilateral calcified pulmonary granulomas. Urinary bladder: Unremarkable as visualized. Reproductive: Unremarkable as visualized. Bones/joints: No acute fracture. Soft tissues: No acute findings. Generalized subcutaneous soft tissue edema/anasarca has resolved. CT/CT abdomen pelvis wo con [id number] IMPRESSION: No acute findings.
--- NOTE | 2021-10-03 17:43 | CTR_ITS ---
PROCEDURE INFORMATION: Exam: CT Head Without Contrast Exam date and time: 10/03/2021 7:01 PM Age: 56 years old Clinical indication: Altered mental status/memory loss; Confusion or disorientation; Patient HX: Ams/lethargy TECHNIQUE: Imaging protocol: Computed tomography of the head without contrast. Sagittal and coronal reformatted images were created and reviewed. Radiation optimization: All CT scans at this facility use at least one of these dose optimization techniques: automated exposure control; mA and/or kV adjustment per patient size (includes targeted exams where dose is matched to clinical indication); or iterative reconstruction. COMPARISON: CT head wo con* [id number] 09/21/2020 1:53 PM RADIATION DOSE METRICS: Total DLP (mGy-cm): 1107.08 FINDINGS: Brain: No acute intracranial hemorrhage. No acute infarct. No intra-axial or extra-axial masses. Valero-white matter differentiation is preserved. No cerebral edema. No extra-axial fluid collections. No midline shift. No evidence for Chiari 1 malformation. Cerebral ventricles: No hydrocephalus. Paranasal sinuses: Visualized paranasal sinuses are clear. Mastoid air cells: Mastoid air cells are clear bilaterally. Orbital cavities: No acute abnormality in the visualized orbits. Bones/joints: No acute fracture. Soft tissues: The extracranial soft tissues are unremarkable. CT/CT head wo con* [id number] IMPRESSION: No acute abnormality of the brain.
[2021-10-03 18:01] LABS: SARS Covid-2 Antigen Negative (Negative)
[2021-10-03 18:18] LABS: Influenza A by IFA Negative (Negative); Influenza B by IFA Negative (Negative)
[2021-10-03] MEDS: labetalol 5 mg/mL SDV 20mL 10 MG IVP (18:35)
--- NOTE | 2021-10-03 19:09 | ECG_ITS ---
[facility] Test Date: 2021-10-03 Pat Name: Martir Kruger Department: Room: Gender: Male Deaf/Hard Of Hearing Specialist: : 1965 Requested By: Tony Prado Order Number: [id number] Geraldo MD: Rafa Snow M.D. Measurements Intervals [place] Rate: 108 P: 60 [place]: 212 QRS: 35 QRSD: 93 T: 40 QT: 337 QTc: 452 Interpretive Statements SINUS TACHYCARDIA WITH FIRST DEGREE AV BLOCK Compared to ECG 10/03/2021 17:23:06 Atrial abnormality no longer present Electronically Signed On 10-04-2021 11:59:40 CDT by Rafa Snow M.D. [id number]
[2021-10-03 19:11] LABS: Alanine Aminotransferase 12 U/L (0-41); Alkaline Phosphatase 105 IU/L (40-130); Anion Gap 34.3 (5-19); Aspartate Amino Transferase 11 U/L (0-40); Blood Urea Nitrogen 40 mg/dL (6-20); Calcium 9.7 mg/dL (8.5-10.5); Carbon Dioxide 15 mmol/L (22-29); Chloride 84 mmol/L (98-107); Globulin 3.4 g/dL (1.3-4.6); Glomerular Filtration Rate 29.4 mL/min (90-130); Potassium 5.3 mmol/L (3.5-5.1); Sodium 128 mmol/L (136-145); Total Bilirubin 0.3 mg/dL (0.15-1.2); Total Protein 7.4 g/dL (6.6-8.7)
[2021-10-03 19:15] LABS: Troponin(5th) Baseline 28 ng/L (0-15)
[2021-10-03 19:50] LABS: Osmolality Calculated 325 mOsm/kg (285-295)
[2021-10-03 19:51] LABS: Glucose 979 mg/dL (65-115)
[2021-10-03 19:54] LABS: Add Urine Microscopic? YES; Bilirubin Urine Neg (Negative); Blood Urine 3+ (Negative); Glucose Urine UA 4+ (Normal); Ketones Urine 1+ (Negative); Leukocyte Esterase Urine Negative (Negative); Nitrate Urine Negative (Negative); Protein Urine 3+ (Negative); Urine Appearance Clear (CLEAR); Urine Color Yellow (Yellow); Urobilinogen Urine Neg (Negative); pH Urine 5 (5-7)
[2021-10-03 19:54] LABS: Glucose Point of Care > 600 mg/dL (70-110)
[2021-10-03 19:55] LABS: Add Urine Culture? No; Amorphous Sediment Urine TRACE /hpf; Bacteria Urine TRACE /hpf; Mucus Urine TRACE /hpf; Squamous Epithelial Cell Urine 0-4 /hpf (0-5); WBC Urine 0-4 /hpf (0-5)
[2021-10-03 20:00] LABS: Basophils % 0.2 %; Hematocrit 42.9 % (42.0-52.0); Hemoglobin 13.9 g/dL (11.7-16.6); Lymphocytes # 0.4 10^3/uL (0.8-4.8); Lymphocytes % 3.6 %; Mean Corpuscular HGB Conc 32.4 g/dL (30.0-36.0); Mean Corpuscular Hemoglobin 28.2 pg (28.0-34.0); Mean Platelet Volume 10.7 fL (7.4-10.4); Monocytes # 0.6 10^3/uL (0.2-0.9); Monocytes % 4.7 %; Neutrophils # 11.09 10^3/uL (1.8-7.7); Nucleated Red Blood Cells % 0 %; Platelet Count 314 10^3/cmm (130-400); Red Blood Count 4.93 10^6/uL (4.1-5.3); Red Cell Distribution Width 12.9 % (12.1-15.1); White Blood Count 12.3 10^3/uL (4.0-10.0)
[2021-10-03] MEDS: insulin regular-human 250 UNIT in sodium chloride 0.9% 250 ML 27.6 UNIT IV (20:08)
[2021-10-03 20:11] LABS: Ketone (Acetest) Serum Negative (Negative)
[2021-10-03 20:23] LABS: Ammonia 21 umol/L (16-60)
[2021-10-03 20:25] LABS: Troponin 5 2HR 32.84 ng/L (0-15)
[2021-10-03 20:31] LABS: Troponin 5 2HR Delta 4.84 ABS# (0-10)
[2021-10-03 20:42] LABS: Lipase 1282 U/L (13-60)
[2021-10-03 21:00] LABS: Glucose Point of Care > 600 mg/dL (70-110)
--- NOTE | 2021-10-03 21:06 | PM.HP ---
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 He presents to the emergency room today with complaints of disorientation, weakness, excessive nausea vomiting and diarrhea. He was found to have hyperosmolar hyperglycemic state with elevated blood sugar greater than 979, a positive anion gap of 34 and bicarb at 15. He denies any recent fever chills. Wound has been healing well, he is due to be fitted for a prosthesis. Patient has been noncompliant with his medications, he has been off all of his diabetic medicines including insulin at least for the past 3 to 4 weeks. Review of Systems General: Reports: 10 or more systems reviewed and unremarkable except in HPI and below Const: Denies: fever(s), chills or body aches Eyes: Denies: change in vision, blurry vision or photophobia ENMT: Reports: hoarseness; Denies: throat pain, enlarged tonsils, odynophagia or nasal congestion Card: Denies: chest pain, palpitations, irregular heart rhythm, edema, swelling of feet/ankles, lightheadedness, pre-syncope, dyspnea on exertion or orthopnea Resp: Denies: dyspnea, productive cough, non-productive cough, wheezing, stridor, pain on inspiration, change in phlegm color, hemoptysis or chest congestion GI: Denies: abdominal pain, nausea, vomiting, hematemesis, coffee ground emesis, dysphagia, heartburn, diarrhea, constipation, GI cramping, change in stool character, hematochezia or melena : Denies: flank pain, dysuria, urinary frequency, urinary urgency, urinary hesitancy or hematuria Musc: Denies: neck pain, back pain, extremity pain, joint swelling, joint warmth or deformity Neuro: Denies: headache(s), numbness in extremities, weakness in extremities, sensory changes, difficulty walking, frequent falls, dizziness, vertigo, behavioral changes, Slurred speech present or seizure-like activity Psych: Denies: anxiety, depression, suicidal ideation or homicidal ideation Endo: Denies: polyuria, polydipsia, tired all the time, cold intolerance or hot flashes David/Lymph: Denies: easy bruising or easy bleeding Medications/Allergies Home Medications Medication Instructions Recorded Confirmed Last Taken Type aspirin 81 mg tablet,delayed 81 mg PO DAILY 06/16/19 09/18/21 05/10/21 History release (Adult Aspirin Regimen) exenatide (Byetta) 10 mcg SUBCUT DAILY 09/21/20 09/18/21 05/10/21 History empagliflozin 10 mg tablet 10 mg PO DAILY 03/26/21 09/18/21 05/10/21 History (Jardiance) lisinopril 20 mg tablet 20 mg PO DAILY #60 tabs 03/28/21 09/18/21 05/10/21 Rx furosemide 20 mg tablet (Lasix) 20 mg PO DAILY #60 tabs 04/16/21 09/18/21 05/10/21 Rx oxycodone 5 mg tablet 5 mg PO TID PRN pain #20 tabs 04/16/21 09/18/21 Unknown Rx sennosides 8.6 mg-docusate sodium 1 tab-cap PO DAILY #20 tabs 04/16/21 09/18/21 05/10/21 Rx 50 mg tablet (Senna-Time S) sodium bicarbonate 650 mg tablet 650 mg PO TID stomach upset #90 04/16/21 09/18/21 05/10/21 Rx tabs insulin detemir U-100 100 unit/mL 17 unit (0.17 mL) SUBCUT BID #10 mL 04/23/21 09/18/21 05/10/21 Rx subcutaneous solution (Levemir U-100 Insulin) flash glucose sensor (FreeStyle #1 ea 04/30/21 09/18/21 Unknown Rx Julius 2 Sensor) ondansetron HCl 4 mg tablet 4 mg PO Q6H PRN nausea and 05/06/21 09/18/21 Unknown Rx (Zofran) vomiting #20 tabs ferrous sulfate 325 mg (65 mg 325 mg PO EVERY OTHER DAY 05/10/21 09/18/21 05/09/21 History iron) tablet (Iron (ferrous sulfate)) hydralazine 25 mg tablet 25 mg PO TID #90 tabs 05/12/21 09/18/21 Unknown Rx metoclopramide HCl 5 mg tablet 5 mg PO DAILY #30 tabs 05/12/21 09/18/21 05/10/21 Rx (Reglan) metoclopramide HCl 5 mg tablet 5 mg PO Q12H PRN nausea and 05/12/21 09/18/21 Unknown Rx (Reglan) vomiting #60 tabs ondansetron HCl 4 mg tablet 4 mg PO DAILY PRN nausea and 05/12/21 09/18/21 Unknown Rx (Zofran) vomiting #90 tabs potassium chloride 20 mEq 20 meq PO DAILY #30 tabs 05/12/21 09/18/21 Unknown Rx tablet,extended release promethazine 50 mg rectal 50 mg NV Q6H PRN nausea and 05/12/21 09/18/21 Unknown Rx suppository vomiting #12 ea amlodipine 10 mg tablet 10 mg PO DAILY #30 tabs 06/09/21 09/18/21 Unknown Rx pantoprazole 40 mg tablet,delayed 40 mg PO BID 30 days #60 tabs 06/09/21 09/18/21 Unknown Rx release (Protonix) insulin lispro 100 unit/mL See Rx Instructions .Route 08/01/21 09/18/21 Unknown Rx subcutaneous pen (Humalog KwikPen .COMPLEX #15 mL (U-100) Insulin) metoprolol tartrate 25 mg tablet See Rx Instructions .Route 08/01/21 09/18/21 Unknown Rx .COMPLEX #60 tabs neomycin 3.5 mg-polymyxin 10,000 1 drp ophthalmic (eye) QID 5 days 09/18/21 09/18/21 Unknown Rx unit-hydrocort 10 mg/mL eye #7.5 mL drop,susp Allergies Allergy/AdvReac Type Severity Reaction Status Date / Time No Known Allergies Allergy Verified 09/18/21 10:54 PFSH Acute PFSH: Medical History (Updated 10/03/21 @ 21:14 by Brittny Brenner MD) Acquired rearfoot varus Acute renal failure superimposed on stage 3b chronic kidney disease Chronic renal impairment 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 Diabetes mellitus with gastroparesis Diabetes type 2, uncontrolled Diabetic foot infection Diabetic peripheral neuropathy associated with type 2 diabetes mellitus DKA (diabetic ketoacidosis) Essential hypertension Foot abscess, left Hyperlipidemia associated with type 2 diabetes mellitus Hyperlipidemia, mixed Hypertensive urgency Hypokalemia Microscopic hematuria Nausea and vomiting Osteomyelitis Peripheral arterial disease Statin intolerance Surgical History Amputated toe of right foot secondary to osteomyelitis 4th right toe History of amputation of lesser toe History of partial amputation of toe of right foot S/P BKA (below knee amputation) (04/05/21) S/P hemodialysis catheter insertion Family History Father Diabetes Mother Diabetes Other Hypertension Social History Smoking and tobacco status: never smoked Second hand smoke exposure: No Smoking risk assessment/counseling performed?: No Alcohol intake: former Desire information about alcohol rehabilitation?: No Counseling given: No Desire information about substance/drug rehabilitation?: No Counseling given: No Adopted: No Caregiver/support person: No Lives independently: Yes Household members: spouse Housing: House Marital status: service: No Current occupational status: employed Pets and animals: Yes History of recent travel: No Current gender identity: Male Vitals/I&O/Wt Last Vital Signs Pulse 116 H 10/03/21 20:14 Resp 18 10/03/21 20:14 BP 175/89 10/03/21 21:00 Pulse Ox 93 10/03/21 21:00 O2 Del Method 10/03/21 20:14 10/03/21 10/03/21 10/03/21 06:59 14:59 22:59 Intake Total 1999 Balance 1999 Weight last 48 hrs Weight 104.326 kg Physical Exam Narrative: General: No acute distress, AO x3 HEENT: PERRLA, pupils bilaterally equal and reactive, pallors not present Chest: Normal vesicular breath sounds, no added sounds, equal good air entry bilaterally CVS: S1-S2 regular, no murmurs, no tachycardia, no gallops, no rubs Abdomen: Soft, nontender, no organomegaly, bowel sounds present Neuro: No focal deficits, no facial deformity, AO x3, power 5/5 in all limbs Data : 10/03/21 19:52 10/04/21 00:20 Micro: Microbiology 10/03/21 19:52 Blood Culture - Preliminary Blood SPECIMEN COLLECTED 10/03/21 18:03 Blood Culture - Preliminary Blood SPECIMEN COLLECTED A&P Assessment and plan (1) Hyperosmolar hyperglycemic state (HHS): Start patient on insulin drip as per DKA/HHS protocol with target blood sugars between 100-130 normal saline at 75 cc/h. We will switch to D5 NS once blood sugar less than 250. Monitor BMP every 6 hours. Once potassium less than 4 we will add 20 mg of potassium to IV fluids. Monitor saturations. Maintain over 90%. Transition to sliding scale and long-acting insulin once anion gap resolves. HHS most likely precipitated by noncompliance with medications. Status: Acute Plan CKD: Creatinine currently at baseline. Monitor urine output closely with IV fluids. Continue amlodipine, metoprolol for hypertension. Continue home doses of pantoprazole, oxycodone. This documentation was created by [employer] inking machine tender software. Every effort was made to ensure accuracy of inking machine tender. Any obvious errors or omissions should be clarified with the author of the document. Attestations Medical Necessity Statement*: Anticipate greater than 2 midnight admission for management of diabetic ketoacidosis/hyper glycemic hyperosmolar state, need for insulin drip Critical Care Time: The high probability of a clinically significant, sudden or life threatening deterioration of the patient's [endocrine] system(s) required my full and direct attention, intervention and personal management. The critical care time is as shown. This time is in addition to time spent performing any reported procedures but includes the following: [x] Data and vital sign review and interpretation [x] Patient assessment, examination and intervention [x] Documentation [x] Medication orders and management Critical Care Time (min): 45 Coding Level of Care Code Acute Lab Support Technician for Paula Ho Diagnoses Hyperosmolar hyperglycemic state (HHS) E11.00; E11.65
[2021-10-03] MEDS: metoprolol tartrate 25 mg Tablet PO (21:27)
[2021-10-03] MEDS: sodium chloride 0.9% 1,000 ML 75 ML IV (21:27)
[2021-10-03] MEDS: enoxaparin 40 mg/0.4 mL Syringe SUBCUT (21:27)
[2021-10-03 22:18] LABS: Alanine Aminotransferase 11 U/L (0-41); Albumin Level 3.4 g/dL (3.5-5.2); Alkaline Phosphatase 91 IU/L (40-130); Anion Gap 27.4 (5-19); Aspartate Amino Transferase 8 U/L (0-40); Blood Urea Nitrogen 42 mg/dL (6-20); Calcium 9.4 mg/dL (8.5-10.5); Carbon Dioxide 19 mmol/L (22-29); Chloride 94 mmol/L (98-107); Globulin 2.9 g/dL (1.3-4.6); Glomerular Filtration Rate 26.7 mL/min (90-130); Potassium 3.4 mmol/L (3.5-5.1); Sodium 137 mmol/L (136-145); Total Bilirubin 0.2 mg/dL (0.15-1.2); Total Protein 6.3 g/dL (6.6-8.7)
[2021-10-03 22:27] LABS: Osmolality Calculated 333 mOsm/kg (285-295)
[2021-10-03 22:33] LABS: Glucose 795 mg/dL (65-115)
[2021-10-03] MEDS: acetaminophen 325 mg Tablet 650 MG PO (23:02)
[2021-10-03 23:34] LABS: Troponin 5 6HR 45.05 ng/L (0-15)
[2021-10-03 23:41] LABS: Glucose 635 mg/dL (65-115); Troponin 5 6HR Delta 17.05 ng/L (0-12)
--- NOTE | 2021-10-03 23:49 | ECG_ITS ---
[facility] Test Date: 2021-10-03 Pat Name: Martir Kruger Department: Room: [facility] Gender: Male Aligner Typewriter: : 1965 Requested By: Tony Prado Order Number: [id number] Geraldo MD: Rafa Snow M.D. Measurements Intervals Ellery Rate: 104 P: 66 TN: 215 QRS: 49 QRSD: 89 T: 62 QT: 356 QTc: 469 Interpretive Statements SINUS TACHYCARDIA WITH FIRST DEGREE AV BLOCK NONSPECIFIC T-WAVE ABNORMALITY Compared to ECG 10/03/2021 19:15:41 T-wave abnormality now present Electronically Signed On 10-04-2021 12:00:30 CDT by Rafa Snow M.D. [id number]
[2021-10-03] MEDS: oxyCODONE 5 mg IR Tab/Cap PO (23:58)
[2021-10-04] VITALS (19 sets, daily range): BP systolic 119–176; BP diastolic 51–92; PULSE 100; TEMP 36.9; O2SAT 94–97
[2021-10-04 01:04] LABS: Glucose 526 mg/dL (65-115)
[2021-10-04 01:21] LABS: Glucose Point of Care 447 mg/dL (70-110)
[2021-10-04 02:20] LABS: Glucose Point of Care 343 mg/dL (70-110)
[2021-10-04 03:29] LABS: Glucose Point of Care 239 mg/dL (70-110)
[2021-10-04] MEDS: dextrose 5%-sod chloride 0.9% 1,000 ML 75 ML IV (04:02)
[2021-10-04 04:13] LABS: Glucose Point of Care 225 mg/dL (70-110)
[2021-10-04] MEDS: insulin regular-human 250 UNIT in sodium chloride 0.9% 250 ML 16.5 UNIT IV (04:24)
[2021-10-04 04:34] LABS: Basophils % 0.2 %; Hemoglobin 14.5 g/dL (11.7-16.6); Lymphocytes # 0.9 10^3/uL (0.8-4.8); Lymphocytes % 5.6 %; Mean Corpuscular HGB Conc 33.7 g/dL (30.0-36.0); Mean Corpuscular Hemoglobin 27.5 pg (28.0-34.0); Mean Corpuscular Volume 81.4 fl (80-94); Mean Platelet Volume 10.2 fL (7.4-10.4); Monocytes # 1.2 10^3/uL (0.2-0.9); Monocytes % 7.1 %; Neutrophils # 14.22 10^3/uL (1.8-7.7); Nucleated Red Blood Cells % 0 %; Platelet Count 384 10^3/cmm (130-400); Red Blood Count 5.28 10^6/uL (4.1-5.3); Red Cell Distribution Width 12.9 % (12.1-15.1); White Blood Count 16.6 10^3/uL (4.0-10.0)
[2021-10-04 05:03] LABS: Alanine Aminotransferase 10 U/L (0-41); Albumin Level 3.5 g/dL (3.5-5.2); Alkaline Phosphatase 85 IU/L (40-130); Anion Gap 20.2 (5-19); Aspartate Amino Transferase 10 U/L (0-40); Blood Urea Nitrogen 43 mg/dL (6-20); Calcium 9.7 mg/dL (8.5-10.5); Carbon Dioxide 24 mmol/L (22-29); Chloride 104 mmol/L (98-107); Globulin 3.2 g/dL (1.3-4.6); Glomerular Filtration Rate 27.9 mL/min (90-130); Glucose 242 mg/dL (65-115); Magnesium 2.3 mg/dL (1.7-2.3); Osmolality Calculated 319 mOsm/kg (285-295); Potassium 3.2 mmol/L (3.5-5.1); Sodium 145 mmol/L (136-145); Total Bilirubin 0.2 mg/dL (0.15-1.2); Total Protein 6.7 g/dL (6.6-8.7)
[2021-10-04 05:09] LABS: Glucose Point of Care 162 mg/dL (70-110)
[2021-10-04] MEDS: ondansetron 2 mg/ML SDV 2 mL 4 MG IVP (05:11)
[2021-10-04 06:10] LABS: Glucose Point of Care 129 mg/dL (70-110)
--- NOTE | 2021-10-04 06:11 | PC.NURSE ---
Pt has had flat affect all night. Pt oriented and it appears as though the flat affect is the result of sleepiness and pt's baseline. Pt repeatedly educated on the need for monitoring. Pt continued to remove BP cuff and other leads.
[2021-10-04 07:31] LABS: Glucose Point of Care 100 mg/dL (70-110)
[2021-10-04] MEDS: hyDRALAzine 25 mg Tablet PO ×3 (08:12→21:39)
[2021-10-04] MEDS: aspirin 81 mg EC Tablet PO (08:12)
[2021-10-04] MEDS: amlodipine 10 mg Tablet PO (08:12)
[2021-10-04] MEDS: metoprolol tartrate 25 mg Tablet PO ×2 (08:12→21:38)
[2021-10-04] MEDS: pantoprazole DR 40 mg Tablet PO (08:12)
[2021-10-04 08:21] LABS: Glucose Point of Care 109 mg/dL (70-110)
[2021-10-04 09:20] LABS: Glucose Point of Care 140 mg/dL (70-110)
[2021-10-04 10:13] LABS: Glucose Point of Care 113 mg/dL (70-110)
[2021-10-04] MEDS: sodium chloride 0.9% 1,000 ML 75 ML IV (11:27)
[2021-10-04] MEDS: insulin glargine 100 units/1 mL 25 UNIT SUBCUT (11:27)
[2021-10-04 11:52] LABS: Anion Gap 15.7 (5-19); Blood Urea Nitrogen 43 mg/dL (6-20); Calcium 9.2 mg/dL (8.5-10.5); Carbon Dioxide 27 mmol/L (22-29); Chloride 103 mmol/L (98-107); Glomerular Filtration Rate 32.6 mL/min (90-130); Glucose 91 mg/dL (65-115); Osmolality Calculated 304 mOsm/kg (285-295); Potassium 3.7 mmol/L (3.5-5.1); Sodium 142 mmol/L (136-145)
[2021-10-04 12:06] LABS: Estmated Average Glucose 295; Hemoglobin A1C 11.9 % (4.0-6.0)
--- NOTE | 2021-10-04 13:25 | PM.PN ---
Subjective Subjective: This morning patient is clinically doing better Has been closed Creatinine 2.1 advance diet, give him Lantus Vitals/I&O/Wt Last Vital Signs Pulse 103 H 10/03/21 23:00 Resp 16 10/03/21 23:00 BP 142/72 10/04/21 12:00 Pulse Ox 93 10/03/21 21:00 O2 Del Method 10/03/21 20:46 10/03/21 10/04/21 10/04/21 22:59 06:59 14:59 Intake Total 2068.45 / 4119.97 600 / 600 Output Total 500 / 500 300 / 300 Balance / 1568.45 / 3619.97 300 / 300 Weight last 48 hrs Weight 104.326 kg Physical Exam Narrative: Patient is euvolemic Awake and alert Currently on room air Abdomen soft S1, S2 No active complaints Pleasant and cooperative Data : 10/04/21 03:45 10/04/21 11:19 Micro: Microbiology 10/03/21 19:52 Blood Culture - Preliminary Blood SPECIMEN COLLECTED 10/03/21 18:03 Blood Culture - Preliminary Blood SPECIMEN COLLECTED A&P Assessment and plan (1) Hyperosmolar hyperglycemic state (HHS): Status: Acute (2) Prosthesis fitting: Status: Acute (3) Acute renal failure superimposed on stage 3b chronic kidney disease: Status: Acute Plan Hyperglycemia without DKA Gap is closed I will let him eat consistent carb diet Start Lantus Patient has skipped his Lantus for quite some time Acute on chronic kidney disease creatinine seems around baseline Hemoglobin A1c 11.9 which has worsened Patient is full code Will discharge him tomorrow Troponin trending up however no active chest pain, lipase is 1200 no signs of pancreatitis on CT scan EKG without ischemic or infarctive changes Nonspecific T wave changes, first-degree AV block Currently hemodynamically stable Will do echo Attestations Medical Necessity Statement*: Discharge tomorrow Time Spent in Patient Care: 30 Coding Level of Care Code Acute Motion Picture Equipment Machinist for Chg Fwd Diagnoses Hyperosmolar hyperglycemic state (HHS) E11.00; E11.65 Prosthesis fitting Z44.9 Acute renal failure superimposed on stage 3b chronic kidney disease N17.9; N18.32
--- NOTE | 2021-10-04 13:29 | USCV_ITS ---
Martir Kruger Age: 56 Gender: M : 1965 Exam Date: 10/04/2021 13:48 Ordering Phys: Woodrow Metzger MD Technologist: Greg Cazares Exam Location: [facility] – [place] Indication: elevated trop BP: 159 / 80 HR: 97 Rhythm: Sinus Technical Quality: Suboptimal MEASUREMENTS (Male / Female) Normal Values 2D ECHO LV Diastolic Diameter PLAX 4.3 cm 4.2 - 5.9 / 3.9 - 5.3 cm LV Systolic Diameter PLAX 2.8 cm IVS Diastolic Thickness 1.3 cm 0.6 - 1.0 / 0.6 - 0.9 cm IVS Systolic Thickness 1.5 cm LVPW Diastolic Thickness 1.3 cm 0.6 - 1.0 / 0.6 - 0.9 cm LVPW Systolic Thickness 1.3 cm LVOT Diameter 2.0 cm LV Ejection Fraction 2D Teich 65.6 % LV Ejection Fraction MOD 2C 75.0 % LV Ejection Fraction 2C AL 75.1 % LA Diameter 3.5 cm M-MODE Aortic Annulus Diameter 3.3 cm LA Ao Ratio MM 1.1 MV E Point Septal Separation 1.1 cm DOPPLER AV Peak Velocity 139.3 cm/s LVOT Peak Velocity 102.0 cm/s AV Area Cont Eq vti 2.5 cm squared AV Area Cont Eq pk 2.3 cm squared MV Area PHT 5.0 cm squared Mitral E to A Ratio 0.8 MV E' Velocity 49.5 cm/s Mitral E to MV E' Ratio 9.6 Mitral E to LV E' Lateral Ratio 8.8 Mitral E to LV E' Septal Ratio 10.6 TR Peak Velocity 146.0 cm/s TR Peak Gradient 8.5 mmHg TV Peak E Velocity 120.0 cm/s Right Atrial Pressure 3.0 mmHg Pulmonary Artery Systolic Pressu 11.5 mmHg PV Peak Velocity 140.0 cm/s FINDINGS Left Ventricle Normal left ventricular size, systolic function and wall thickness, with no regional wall motion abnormalities. Grade I/IV diastolic dysfunction (abnormal relaxation filling pattern), normal to mildly elevated filling pressures. Left ventricular ejection fraction is estimated at 60 %. Right Ventricle Normal right ventricular size and systolic function. Normal right ventricular systolic pressure. Right Atrium The right atrium is normal in size. Left Atrium The left atrium is normal in size. Mitral Valve Structurally normal mitral valve. Trace mitral valve regurgitation. Aortic Valve Structurally normal aortic valve without significant sclerosis or stenosis. There is no aortic regurgitation. Tricuspid Valve Structurally normal tricuspid valve. Trace tricuspid valve regurgitation. Pulmonic Valve Structurally normal pulmonic valve. Pericardium Normal pericardium without effusion. Aorta Normal ascending aorta dimension. IVC Inferior vena cava not visualized. CONCLUSIONS Normal left ventricular size, systolic function and wall thickness, with no regional wall motion abnormalities. Grade I/IV diastolic dysfunction (abnormal relaxation filling pattern), normal to mildly elevated filling pressures. Left ventricular ejection fraction is estimated at 60 %. Structurally normal mitral valve. Trace mitral valve regurgitation. Dr. Rafa Snow MD (Electronically Signed) Final Date: 05 October 2021 10:09 S
--- NOTE | 2021-10-04 15:29 | PC.NURSE ---
Pt has been resting in bed this shift. He has been very pleasant but has refused to wear cardiac monitoring.
[2021-10-04 16:49] LABS: Glucose Point of Care 321 mg/dL (70-110)
[2021-10-04] MEDS: insulin lispro 100 unit/1 mL SUBCUT ×2 (17:11→21:39)
[2021-10-04 21:07] LABS: Glucose Point of Care 353 mg/dL (70-110)
[2021-10-04] MEDS: enoxaparin 40 mg/0.4 mL Syringe SUBCUT (21:39)
[2021-10-04] MEDS: insulin glargine 100 units/1 mL 20 UNIT SUBCUT (21:39)
--- NOTE | 2021-10-04 21:53 | PC.NURSE ---
Patient still refuses telemetry monitoring. He is how ever wearing his BP cuff and O2 sat monitor. Had to switch out O2 sat monitor to get it to read. No complaints of pain or nausea. Resting quietly.
[2021-10-05] VITALS (11 sets, daily range): BP systolic 119–186; BP diastolic 49–95; PULSE 95; O2SAT 96
[2021-10-05] MEDS: sodium chloride 0.9% 1,000 ML 75 ML IV (00:55)
[2021-10-05 04:09] LABS: Basophils % 0.2 %; Eosinophils % 0.1 %; Hematocrit 35.4 % (42.0-52.0); Hemoglobin 11.9 g/dL (11.7-16.6); Lymphocytes % 7.9 %; Mean Corpuscular HGB Conc 33.6 g/dL (30.0-36.0); Mean Corpuscular Hemoglobin 27.5 pg (28.0-34.0); Mean Corpuscular Volume 81.9 fl (80-94); Mean Platelet Volume 10.3 fL (7.4-10.4); Monocytes # 0.9 10^3/uL (0.2-0.9); Monocytes % 6.7 %; Neutrophils # 11.09 10^3/uL (1.8-7.7); Neutrophils % 84.5 %; Nucleated Red Blood Cells % 0 %; Platelet Count 274 10^3/cmm (130-400); Red Blood Count 4.32 10^6/uL (4.1-5.3); White Blood Count 13.1 10^3/uL (4.0-10.0)
[2021-10-05 04:37] LABS: Anion Gap 13.2 (5-19); Blood Urea Nitrogen 36 mg/dL (6-20); Calcium 8.5 mg/dL (8.5-10.5); Carbon Dioxide 27 mmol/L (22-29); Chloride 99 mmol/L (98-107); Glomerular Filtration Rate 38.9 mL/min (90-130); Glucose 291 mg/dL (65-115); Osmolality Calculated 299 mOsm/kg (285-295); Potassium 4.2 mmol/L (3.5-5.1); Sodium 135 mmol/L (136-145)
[2021-10-05 07:43] LABS: Glucose Point of Care 259 mg/dL (70-110)
[2021-10-05] MEDS: insulin lispro 100 unit/1 mL SUBCUT (07:48)
[2021-10-05] MEDS: ondansetron 2 mg/ML SDV 2 mL 4 MG IVP (07:48)
--- NOTE | 2021-10-05 08:25 | P.DS_ITS ---
Discharge Providers Date of Admission: 10/03/21 20:00 Date of Discharge: October 05, 2021 Attending Provider at Admission: Brittny Brenner MD Attending Provider at Discharge: Woodrow Metzger MD Primary Care Provider: MARK Kilpatrick Diagnoses at Discharge Discharge Diagnosis (1) Hyperosmolar hyperglycemic state (HHS): Status: Acute (2) Prosthesis fitting: Status: Acute (3) Acute renal failure superimposed on stage 3b chronic kidney disease: Status: Acute Reason for Visit Reason for Visit: N/V, Diabetic Hospital Course Hospital Course 56-year-old male who has history of type 2 diabetes, diabetic foot ulcer with osteomyelitis status post BKA, presented with chief complaint of recurrent nausea vomiting. He was diagnosed with DKA he did not use his insulin for about a month at least as per the patient. At the time of discharge patient has enough supply for insulin at home, I have recommended increasing dose of insulin to 20 units instead of 17 units. He is also using sliding scale. Hemoglobin A1c has worsened to 11.0% He has chronic kidney disease, improved to his baseline at the time of discharge Physical Exam Narrative: Patient is euvolemic Awake and alert Currently on room air Abdomen soft S1, S2 No active complaints Pleasant and cooperative Discharge Data Studies Completed and Pending Completed Studies During Hospitalization Category Date Time Status CT abdomen pelvis wo con [id number] Stat Cat Scan 10/03/21 17:[address] head wo con* [id number] Stat Cat Scan 10/03/21 17:43 Completed XR chest 1V portable [id number] Stat Exams 10/03/21 17:09 Completed Pending at discharge Category Date Time Status Blood Culture Stat Lab 10/03/21 19:52 Results Osmolality Serum Stat Lab 10/03/21 19:52 Received CV. echo complete* [id number] Routine Ultrasound 10/04/21 13:29 Taken Radiology Impressions Chest X-Ray 10/03/21 17:09 IMPRESSION: Left basilar atelectasis. Pneumonia should be excluded clinically. Abdomen/Pelvis CT 10/03/21 17:43 IMPRESSION: No acute findings. Head CT 10/03/21 17:43 IMPRESSION: No acute abnormality of the brain. Laboratory Results WBC 13.1 10^3/uL (4.0-10.0) H 10/05/21 03:17 Corrected WBC Cancelled 10/03/21 17:23 RBC 4.32 10^6/uL (4.1-5.3) 10/05/21 03:17 Hgb 11.9 g/dL (11.7-16.6) 10/05/21 03:17 Hct 35.4 % (42.0-52.0) L 10/05/21 03:17 MCV 81.9 fl (80-94) 10/05/21 03:17 MCH 27.5 pg (28.0-34.0) L 10/05/21 03:17 MCHC 33.6 g/dL (30.0-36.0) 10/05/21 03:17 RDW 13.0 % (12.1-15.1) 10/05/21 03:17 Plt Count 274 10^3/cmm (130-400) 10/05/21 03:17 MPV 10.3 fL (7.4-10.4) 10/05/21 03:17 Gran % Cancelled 10/03/21 17:23 Neut % (Auto) 84.5 % 10/05/21 03:17 Lymph % (Auto) 7.9 % 10/05/21 03:17 [place] % (Auto) 6.7 % 10/05/21 03:17 Eos % (Auto) 0.1 % 10/05/21 03:17 Baso % (Auto) 0.2 % 10/05/21 03:17 Neut # (Auto) 11.09 10^3/uL (1.8-7.7) H 10/05/21 03:17 Lymph # (Auto) 1.0 10^3/uL (0.8-4.8) 10/05/21 03:17 [place] # (Auto) 0.9 10^3/uL (0.2-0.9) 10/05/21 03:17 Eos # (Auto) 0.0 10^3/uL (0.0-0.8) 10/05/21 03:17 Baso # (Auto) 0.0 10^3/uL (0.0-0.1) 10/05/21 03:17 Absolute Gran (auto) Cancelled 10/03/21 17:23 Nucleated RBC % (auto) 0 % 10/05/21 03:17 Nucleated RBCs # 0.0 /100WBC 10/05/21 03:17 Specimen Type Arterial 10/03/21 17:11 Sample Site Radial, left 10/03/21 17:11 ABG pH 7.33 (7.35-7.45) L 10/03/21 17:11 ABG pCO2 33.3 mmHg (35-45) L 10/03/21 17:11 ABG pO2 87.4 mmHg (80.0-100.0) 10/03/21 17:11 ABG HCO3 17.3 mmol/L (22-26) L 10/03/21 17:11 ABG Base Excess -7.6 mmol/L (-2.0-2.0) L 10/03/21 17:11 Bj Test Pos 10/03/21 17:11 Hematocrit 47.6 % (42-52) 10/03/21 17:11 O2 Delivery Device Room air 10/03/21 17:11 FiO2 21.0 % 10/03/21 17:11 Greaser Helper ID Cak 10/03/21 17:11 Sodium 135 mmol/L (136-145) L 10/05/21 03:17 Potassium 4.2 mmol/L (3.5-5.1) 10/05/21 03:17 Chloride 99 mmol/L (98-107) 10/05/21 03:17 Carbon Dioxide 27 mmol/L (22-29) 10/05/21 03:17 Anion Gap 13.2 (5-19) 10/05/21 03:17 BUN 36 mg/dL (6-20) H 10/05/21 03:17 Creatinine 1.8 mg/dL (0.7-1.2) H 10/05/21 03:17 GFR Calculation 38.9 mL/min (90-130) L 10/05/21 03:17 Glucose 291 mg/dL (65-115) H 10/05/21 03:17 POC Glucose 259 mg/dL (70-110) H 10/05/21 07:38 Estimat Average Glucose 295 10/04/21 11:19 Hemoglobin A1c 11.9 % (4.0-6.0) H 10/04/21 11:19 Calculated Osmolality 299 mOsm/kg (285-295) H 10/05/21 03:17 Calcium 8.5 mg/dL (8.5-10.5) 10/05/21 03:17 Magnesium 2.3 mg/dL (1.7-2.3) 10/04/21 03:45 Total Bilirubin 0.2 mg/dL (0.15-1.2) 10/04/21 03:45 AST 10 U/L (0-40) 10/04/21 03:45 ALT 10 U/L (0-41) 10/04/21 03:45 Alkaline Phosphatase 85 IU/L (40-130) 10/04/21 03:45 Ammonia 21 umol/L (16-60) 10/03/21 19:52 Troponin T Baseline 28 ng/L (0-15) H 10/03/21 17:23 Troponin T 120 Minute 32.84 ng/L (0-15) H 10/03/21 19:52 Delta Troponin T 4.84 ABS# (0-10) 10/03/21 19:52 Troponin T Hi Sens 6Hr 45.05 ng/L (0-15) H 10/03/21 23:00 Troponin T Hi Sens 6Hr Delta 17.05 ng/L (0-12) H* 10/03/21 23:00 Total Protein 6.7 g/dL (6.6-8.7) 10/04/21 03:45 Albumin 3.5 g/dL (3.5-5.2) 10/04/21 03:45 Globulin 3.2 g/dL (1.3-4.6) 10/04/21 03:45 Lipase 1282 U/L (13-60) H 10/03/21 17:23 Urine Color Yellow (Yellow) 10/03/21 18:14 Urine Appearance Clear (CLEAR) 10/03/21 18:14 Urine pH 5 (5-7) 10/03/21 18:14 Ur Specific [place] 1.020 (1.005-1.030) 10/03/21 18:14 Urine Protein 3+ (Negative) H 10/03/21 18:14 Urine Glucose (UA) 4+ (Normal) H 10/03/21 18:14 Urine Ketones 1+ (Negative) H 10/03/21 18:14 Urine Blood 3+ (Negative) H 10/03/21 18:14 Urine Nitrate Negative (Negative) 10/03/21 18:14 Urine Bilirubin Neg (Negative) 10/03/21 18:14 Urine Urobilinogen Neg mg/dL (Negative) 10/03/21 18:14 Ur Leukocyte Esterase Negative (Negative) 10/03/21 18:14 Urine RBC 5-10 /hpf (0-2) H 10/03/21 18:14 Urine WBC 0-4 /hpf (0-5) H 10/03/21 18:14 Ur Squamous Epith Cells 0-4 /hpf (0-5) H 10/03/21 18:14 Amorphous Sediment Trace /hpf 10/03/21 18:14 Urine Bacteria Trace /hpf (NONE) 10/03/21 18:14 Urine Mucus Trace /hpf 10/03/21 18:14 Serum Ketones Negative (Negative) 10/03/21 19:52 Influenza Type A Ag Negative (Negative) 10/03/21 17:45 Influenza Type B Ag Negative (Negative) 10/03/21 17:45 SARS-CoV-2 Ag (Rapid) Negative (Negative) 10/03/21 17:36 Vitals Last Vital Signs Temp 98.4 F 10/04/21 16:00 Pulse 100 10/04/21 20:00 Resp 16 10/03/21 23:00 BP 162/87 10/05/21 06:00 Pulse Ox 97 10/04/21 21:00 O2 Del Method 10/04/21 20:00 Discharge Plan Discharge Patient Disposition: Home Condition: Stable Prescriptions: Continued aspirin [Adult Aspirin Regimen] 81 mg tablet,delayed release (DR/EC) 81 mg PO DAILY (DME) FreeStyle Julius 2 Sensor Kit See Rx Instructions .ROUTE .MEDSUPPLY Qty: 1 3RF Rx Instructions: Apply one sensor and change every 14 days. 2 sensors per 28 days [id number] 3.5-10,000-10 mg-unit-mg/mL drops,suspension 1 drp ophthalmic (eye) QID 5 Days Qty: 7.5 0RF amlodipine 10 mg tablet 10 mg PO DAILY Qty: 30 0RF metoprolol tartrate 25 mg tablet See Rx Instructions .ROUTE .COMPLEX Qty: 60 0RF Dose Instruction: TAKE 1 TABLET BY MOUTH TWICE DAILY Rx Instructions: TAKE 1 TABLET BY MOUTH TWICE DAILY Jardiance 10 mg tablet 10 mg PO DAILY Novolog U-100 Insulin aspart 100 unit/mL Solution See Rx Instructions .ROUTE .COMPLEX Rx Instructions: per sliding scale Changed Levemir U-100 Insulin 100 unit/mL solution 20 unit SUBCUT BID Qty: 10 8RF Discharge Orders: Discharge Order (Routine); Ordered 10/05/21 Ordered By: Woodrow Metzger Referrals: Sarika Corbin FNP [Primary Care Provider] - Nathalie Delgado MD [Physician] - 1-3 days Patient Instructions: Hyperosmolar Hyperglycemic State (DC), Opioid Safety Discharge Attestations Time Spent in Discharge Care*: less than 30 min Status at Discharge: Cognitive status at discharge: cognitively intact , Behavioral status at discharge: cooperative , Quality Metrics Clinical Quality Measures [ No reported AMI, CVA or VTE this stay] Coding Level of Care Code Acute Chg FW DC note Diagnoses Hyperosmolar hyperglycemic state (HHS) E11.00; E11.65 Prosthesis fitting Z44.9 Acute renal failure superimposed on stage 3b chronic kidney disease N17.9; N18.32
[2021-10-05] MEDS: pantoprazole DR 40 mg Tablet PO (09:16)
[2021-10-05] MEDS: amlodipine 10 mg Tablet PO (09:17)
[2021-10-05] MEDS: aspirin 81 mg EC Tablet PO (09:17)
[2021-10-05] MEDS: metoprolol tartrate 25 mg Tablet PO (09:17)
[2021-10-05] MEDS: hyDRALAzine 25 mg Tablet PO (09:17)
[2021-10-06 15:04] LABS: Osmolality Serum 340 mOsm/kg (278-305)
== END 2021-10-05 11:35 | disposition home or self-care (01) | DRG 638 ==
LOC: ER 20:04 → ICU 20:33
PROVIDERS: Emergency Medicine; Physician Assistant; Admitting Provider Student in an Organized Health Care Education/Training Program; Emergency Provider Emergency Medicine; PCP Nurse Practitioner Family; Visit Provider Internal Medicine
DX: E11.10 Type 2 diabetes mellitus with ketoacidosis without coma (principal); N17.9 Acute kidney failure, unspecified; E11.00 Type 2 diabetes mellitus with hyperosmolarity without nonketotic hyperglycemic-hyperosmolar coma (NKHHC); E11.22 Type 2 diabetes mellitus with diabetic chronic kidney disease; I12.9 Hypertensive chronic kidney disease with stage 1 through stage 4 chronic kidney disease, or unspecified chronic kidney disease; E11.40 Type 2 diabetes mellitus with diabetic neuropathy, unspecified; E11.51 Type 2 diabetes mellitus with diabetic peripheral angiopathy without gangrene; N18.32 Chronic kidney disease, stage 3b; Z89.512 Acquired absence of left leg below knee; T38.3X6A Underdosing of insulin and oral hypoglycemic [antidiabetic] drugs, initial encounter; Z91.128 Patient's intentional underdosing of medication regimen for other reason; E78.5 Hyperlipidemia, unspecified; Z89.421 Acquired absence of other right toe(s); Z79.82 Long term (current) use of aspirin; Z79.84 Long term (current) use of oral hypoglycemic drugs; Z79.4 Long term (current) use of insulin
CPT/HCPCS: 36415; 36416; 36600; 70450; 71045; 74176; 80048; 80053; 81001; 82009; 82140; 82803; 82947; 82962; 83036; 83690; 83735; 83930; 84484; 85025; 87040; 87426; 87804; 93005; 93306; 94760; 96361; 96365; 96372; 96375; 99285; J1650; J1815; J2405; J3490; J7030; J7050

== ENCOUNTER → 2021-12-03 09:01 | Outpatient (BNVA) | payer OTHER, SELFPAY | PROVIDERS: PCP Nurse Practitioner Family; Visit Provider Nurse Practitioner Family | DX: I10 Essential (primary) hypertension (principal); E11.69 Type 2 diabetes mellitus with other specified complication; E78.5 Hyperlipidemia, unspecified | CPT/HCPCS: 80053; 82043 ==

== ENCOUNTER → 2022-01-05 08:16 | Outpatient (BNVA) | payer OTHER, SELFPAY | PROVIDERS: PCP Nurse Practitioner Family; Visit Provider Nurse Practitioner Family | DX: I10 Essential (primary) hypertension (principal); E11.65 Type 2 diabetes mellitus with hyperglycemia; E11.69 Type 2 diabetes mellitus with other specified complication; E78.5 Hyperlipidemia, unspecified | CPT/HCPCS: 80053; 80061; 83036; 83721 ==

== ENCOUNTER 2022-02-21 00:55 | Emergency (ER) | payer OTHER, SELFPAY ==
[2022-02-21 01:03] VITALS: BP 181/96; PULSE 110; RESP 17; TEMP 36.7; O2SAT 100
--- NOTE | 2022-02-21 01:24 | ED_ITS ---
HPI - Wound/Laceration General: Chief Complaint: Wound/Laceration Stated Complaint: wound on leg stump Time Seen by Provider: 02/21/22 01:13 Source: patient Mode of arrival: ambulatory Limitations: no limitations History of Present Illness: 57-year-old male has a history of a left AKA states that his stump has failed is his prosthesis he is actually getting a new prosthesis states he is got a fluid collection to his left lower leg that is growing in size he is concerned about possible infection minimal pain no redness no fevers. Associated symptoms: Denies chills, fever(s), nausea or vomiting Review of Systems Const: Denies: fever(s), chills, body aches or change in appetite Eyes: Denies: blurry vision or eye discomfort ENMT: Denies: throat pain or dental pain Card: Denies: chest pain Resp: Denies: dyspnea GI: Denies: abdominal pain, nausea, vomiting or diarrhea : Denies: dysuria Musc: Denies: neck pain or back pain Skin/Breast: Denies: rash Neuro: Denies: headache(s) Psych: Denies: depression David/Lymph: Denies: easy bruising All/Imm: Denies: urticaria PFSH ED PFSH: Medical History Acquired rearfoot varus Acute renal failure superimposed on stage 3b chronic kidney disease Chronic renal impairment 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 Diabetes mellitus with gastroparesis Diabetes type 2, uncontrolled Diabetic foot infection Diabetic peripheral neuropathy associated with type 2 diabetes mellitus DKA (diabetic ketoacidosis) Essential hypertension Foot abscess, left Hyperlipidemia associated with type 2 diabetes mellitus Hyperlipidemia, mixed Hyperosmolar hyperglycemic state (HHS) Hypertensive urgency Hypokalemia Microscopic hematuria Nausea and vomiting Osteomyelitis Peripheral arterial disease Prosthesis fitting Statin intolerance Surgical History Amputated toe of right foot secondary to osteomyelitis 4th right toe History of amputation of lesser toe History of partial amputation of toe of right foot S/P BKA (below knee amputation) (04/05/21) S/P hemodialysis catheter insertion Family History Father Diabetes Mother Diabetes Other Hypertension Social History Smoking and tobacco status: never smoked Second hand smoke exposure: No Smoking risk assessment/counseling performed?: No Alcohol intake: former Desire information about alcohol rehabilitation?: No Counseling given: No Desire information about substance/drug rehabilitation?: No Counseling given: No Adopted: No Caregiver/support person: No Lives independently: Yes Household members: spouse Housing: House Marital status: service: No Current occupational status: employed Pets and animals: Yes History of recent travel: No Current gender identity: Male Physical Exam Const: COMMON NORMALS: no acute distress and patient oriented x3 HENMT: COMMON NORMALS: normocephalic HEAD & SCALP: normocephalic Eye: COMMON NORMALS: conjunctivae normal CONJUNCTIVA: Yes conjunctivae normal Neck/C-Spine: COMMON NORMALS: full ROM Chest: COMMONS NORMALS: normal inspection of the chest Resp: COMMON NORMALS: normal respiratory effort Cardio: COMMON NORMALS: regular rate RATE: regular rate GI: INSPECTION: Yes normal to inspection Extremity: OTHER: Fluid collection to left lower stump Neuro: COMMON NORMALS: patient oriented x3 Psych: COMMON NORMALS: mental status grossly normal Skin: COMMON NORMALS: no rashes or lesions noted GENERAL SKIN EXAM: no rashes or lesions noted Procedures Abscess I/D Site: lower extremity Side (if applicable): left Local Anesthetic: lidocaine 1% Amount of anesthesia used (mL): 8 Technique: needle aspiration Amount of fluid expressed (mL): 30 Course Vital Signs: Vital signs: Vital Signs Temperature 98.0 F 02/21/22 01:03 Pulse Rate 110 H 02/21/22 01:03 Respiratory Rate 17 02/21/22 01:03 Blood Pressure 181/96 02/21/22 01:03 Pulse Oximetry 100 02/21/22 01:03 Oxygen Delivery Me thod 02/21/22 01:03 MDM - Wound/Laceration Medical Decision Making Patient presents here with a fluid collection to his left leg from his stump likely from repetitive trauma I did drain it with an 18-gauge got 30 cc of fluid that appears to be a seroma and does not appear to be an abscess he is stable for discharge she has wound care follow-up next week Discharge Plan Discharge Patient Disposition: Home Clinical Impression: Seroma Condition: Stable Prescriptions: No Action aspirin [Adult Aspirin Regimen] 81 mg tablet,delayed release (DR/EC) 81 mg PO DAILY [id number] 3.5-10,000-10 mg-unit-mg/mL drops,suspension 1 drp ophthalmic (eye) QID 5 Days Qty: 7.5 0RF Jardiance 10 mg tablet 10 mg PO DAILY Qty: 90 0RF (DME) FreeStyle Julius 2 Sensor Kit See Rx Instructions .ROUTE .MEDSUPPLY Qty: 1 3RF Rx Instructions: Apply one sensor and change every 14 days. 2 sensors per 28 days clindamycin HCl 300 mg capsule 300 mg PO Q8H 10 Days Qty: 30 0RF amlodipine 10 mg tablet 10 mg PO DAILY Qty: 30 0RF insulin lispro [Humalog KwikPen Insulin] 100 unit/mL insulin pen See Rx Instructions .ROUTE .COMPLEX Qty: 15 0RF Dose Instruction: INJECT 3 TO 24 UNITS SUBCUTANEOUSLY PER SLIDING SCALE. NEEDS A1C Rx Instructions: INJECT 3 TO 24 UNITS SUBCUTANEOUSLY PER SLIDING SCALE. NEEDS A1C polymyxin B sulf-trimethoprim [Polytrim] 10,000 unit- 1 mg/mL drops 1 drp ophthalmic (eye) Q3H 7 Days Qty: 10 0RF Rx Instructions: while awake; do not exceed 6 doses in 24 hours metoprolol tartrate 25 mg tablet See Rx Instructions .ROUTE .COMPLEX Qty: 60 0RF Dose Instruction: TAKE 1 TABLET BY MOUTH TWICE DAILY Rx Instructions: TAKE 1 TABLET BY MOUTH TWICE DAILY FreeStyle Julius 2 [place] Misc See Rx Instructions .ROUTE .COMPLEX Qty: 1 0RF Dose Instruction: USE DIRECTED Rx Instructions: USE DIRECTED Levemir U-100 Insulin 100 unit/mL solution 20 unit SUBCUT BID Qty: 10 2RF Discharge Orders: Discharge ED (Routine); Ordered 02/21/22 Ordered By: Maya Ring Referrals: Sarika Corbin FNP [Primary Care Provider] - Discharge Diet: Advance as tolerated Discharge Activity: Resume usual activity Patient Instructions: Seroma (DC) Coding Level of Care Code ED Nursing Program Manager for Paula Ho
--- NOTE | 2022-02-21 01:46 | PC.NURSE ---
Wound drained by Dr Ring. Wound covered with non-adherent dressing.
== END 2022-02-21 02:05 | disposition home or self-care (01) ==
PROVIDERS: Emergency Provider Emergency Medicine; PCP Nurse Practitioner Family
DX: T87.89 Other complications of amputation stump (principal); Z79.82 Long term (current) use of aspirin; Z79.4 Long term (current) use of insulin; I12.9 Hypertensive chronic kidney disease with stage 1 through stage 4 chronic kidney disease, or unspecified chronic kidney disease; E11.22 Type 2 diabetes mellitus with diabetic chronic kidney disease; N18.32 Chronic kidney disease, stage 3b; E78.2 Mixed hyperlipidemia; Z89.612 Acquired absence of left leg above knee
CPT/HCPCS: 10160; 99283

== ENCOUNTER 2022-03-02 10:11 | Emergency (ER) | payer OTHER, SELFPAY ==
[2022-03-02 11:33] VITALS: BP 194/91; PULSE 88; RESP 14; TEMP 36.8; O2SAT 100
--- NOTE | 2022-03-02 15:55 | W.ED.EXTPRO ---
HPI - Extremity Problem General: Chief complaint: Extremity Problem,Nontraumatic Stated complaint: right leg pain Time Seen by Provider: 03/02/22 11:57 History of Present Illness: Patient is a 57-year-old male that presents to the emergency department with complaints of left stump pain. Patient had a previous AKA, March 2021. Secondary to a chronic diabetic wound. Since that time patient has been wearing an ill fitting prosthetic. This has caused a wound and seroma. Patient has been seen multiple times by wound team/primary care. He was last seen last week here in the emergency department where he underwent an aspiration of the seroma. At that time it was serous sanguinous. Patient denies fever, chills, chest pain, shortness of breath, cough, congestion. Denies any other complaints Associated symptoms: Deny chest pain, fever(s) or rash Review of Systems General: Reports: 10 or more systems reviewed and unremarkable except in HPI and below Const: Denies: fever(s), chills, change in appetite, change in weight, fatigue or malaise Eyes: Denies: change in vision, eye discomfort, eye discharge or eye redness ENMT: Denies: throat pain, enlarged tonsils, odynophagia, hoarseness, ear or mastoid pain, ear discharge, change in hearing, tinnitus, nasal discharge, nasal congestion, post nasal drip or sinus pain Card: Denies: chest pain, palpitations, irregular heart rhythm, edema, dyspnea on exertion, orthopnea or leg pain with exertion Resp: Denies: dyspnea, productive cough, non-productive cough, wheezing, stridor or chest congestion GI: Denies: abdominal pain, nausea, vomiting, dysphagia, diarrhea, constipation, bloating, GI cramping or hematochezia : Denies: flank pain, dysuria, urinary frequency, urinary urgency, urinary hesitancy, oliguria or hematuria Musc: Denies: neck pain, back pain, extremity pain, joint pain, joint swelling, joint redness, joint warmth or muscle weakness Skin/Breast: Denies: rash, pruritus, erythema, photosensitivity or new lesions Neuro: Denies: headache(s), numbness in extremities, weakness in extremities, sensory changes, lack of coordination, difficulty walking, frequent falls, dizziness, confusion, Slurred speech present, difficulty communicating thoughts, seizure-like activity or involuntary movements Endo: Denies: polyuria, polydipsia or tired all the time David/Lymph: Denies: easy bruising or easy bleeding PFSH ED PFSH: Medical History Acquired rearfoot varus Acute renal failure superimposed on stage 3b chronic kidney disease Chronic renal impairment 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 Diabetes mellitus with gastroparesis Diabetes type 2, uncontrolled Diabetic foot infection Diabetic peripheral neuropathy associated with type 2 diabetes mellitus DKA (diabetic ketoacidosis) Essential hypertension Foot abscess, left Hyperlipidemia associated with type 2 diabetes mellitus Hyperlipidemia, mixed Hyperosmolar hyperglycemic state (HHS) Hypertensive urgency Hypokalemia Microscopic hematuria Nausea and vomiting Osteomyelitis Peripheral arterial disease Prosthesis fitting Statin intolerance Surgical History Amputated toe of right foot secondary to osteomyelitis 4th right toe History of amputation of lesser toe History of partial amputation of toe of right foot S/P BKA (below knee amputation) (04/05/21) S/P hemodialysis catheter insertion Family History Father Diabetes Mother Diabetes Other Hypertension Social History Smoking and tobacco status: never smoked Second hand smoke exposure: No Smoking risk assessment/counseling performed?: No Alcohol intake: former Desire information about alcohol rehabilitation?: No Counseling given: No Desire information about substance/drug rehabilitation?: No Counseling given: No Adopted: No Caregiver/support person: No Lives independently: Yes Household members: spouse Housing: House Marital status: service: No Current occupational status: employed Pets and animals: Yes History of recent travel: No Current gender identity: Male Physical Exam Const: COMMON NORMALS: no acute distress, average body habitus, patient oriented x3, no limitations, healthy appearing, alert and well nourished GENERAL APPEARANCE: cooperative, comfortable and well developed; not in distress and not anxious ORIENTATION/CONSCIOUSNESS: Yes awake, Yes oriented to person, Yes oriented to place and Yes oriented to time HENMT: COMMON NORMALS: normocephalic, atraumatic, hearing grossly normal bilaterally, external ears normal, EAC's normal, TM's normal bilaterally, Normal external nose present and Normal nasal mucous membranes and turbinates present HEAD & SCALP: normal to inspection, normocephalic and atraumatic FACE & SINUS: normal facial exam and face symmetric NOSE: Normal external nose present, Normal nares present and Normal nasal mucous membranes and turbinates present GENERAL EAR: hearing not grossly impaired EXTERNAL EAR: Yes external ears normal and Yes no periauricular adenopathy EXTERNAL AUDITORY CANAL: EAC's normal TYMPANIC MEMBRANE: TM's normal bilaterally MOUTH: Normal oral and palatal mucosa present, lip normal, tongue normal and Normal salivary glands and ducts present THROAT: posterior oropharynx normal, tonsils normal and uvula midline Eye: COMMON NORMALS: Equal, round and reactive pupils present, EOMs intact bilaterally, conjunctivae normal, no scleral icterus and no papilledema GENERAL EYE: appearance normal, both eyes and all related structures ALIGNMENT: Yes alignment normal PERIORBITAL: periorbital findings normal EYELID: eyelids normal CONJUNCTIVA: Yes conjunctivae normal PUPIL: Yes Equal, round and reactive pupils present DIRECT OPHTHALMOSCOPY: Yes no papilledema Neck/C-Spine: COMMON NORMALS: full ROM, supple, no meningeal signs and no JVD GENERAL: Yes normal visual inspection CERVICAL SPINE: Yes cervical ROM normal Lymph: LYMPHATIC: no lymphadenopathy noted Chest: COMMONS NORMALS: normal inspection of the chest Breast/axilla inspection: Yes no chest deformity, asymmetry, normal contours, no nodules, masses, tenderness Resp: COMMON NORMALS: normal respiratory effort, No retractions, No use of accessory muscles and clear to auscultation bilaterally EFFORT & INSPECTION: Yes able to speak in complete sentences, Yes symmetric chest movement, No abnormal respiratory pattern, No tachypneic and No respiratory distress AUSCULTATION: clear to auscultation bilaterally Cardio: COMMON NORMALS: no JVD, regular rate, regular rhythm and Peripheral pulses 2+ throughout RATE: regular rate RHYTHM: regular rhythm PERIPHERAL PULSES: Peripheral pulses 2+ throughout GI: COMMON NORMALS: Normal to inspection, nondistended, normoactive bowel sounds present, Soft to palpation and non-tender INSPECTION: Yes normal to inspection PALPATION: Yes Soft to palpation : COMMON NORMALS: Yes no CVA tenderness BLADDER/KIDNEY EXAM: Yes no CVA tenderness and Yes CVA tenderness Back/Pelvis: COMMON NORMALS: no CVA tenderness, thoracic and lumbar spine normal to inspection, no thoracic nor lumbar tenderness, thoraco-lumbar ROM normal and straight leg raise negative bilaterally GENERAL BACK: Yes CVA tenderness and No ecchymosis THORACIC SPINE/UPPER BACK: Yes normal to inspection LUMBAR SPINE/LOWER BACK: Yes normal to inspection and Yes straight leg raise negative bilaterally Extremity: COMMON NORMALS: normal to inspection, full ROM and capillary refill normal NARRATIVE EXTREMITY EXAM: Left lower extremity: Skin is clean and dry. Patient does have swelling erythema and warmth noted to the distal aspect of the stump. No wounds or active drainage GENERAL: Yes normal exam except as noted Neuro: COMMON NORMALS: patient oriented x3 SENSORIUM/ORIENTATION: Yes alert, Yes oriented to person, Yes oriented to place and Yes oriented to time MENINGEAL SIGNS: Yes no meningeal signs Psych: COMMON NORMALS: mental status grossly normal, Normal thought process present, cooperative, normal affect, speech normal and activity/motor behavior normal SPEECH: Yes normal speech THOUGHT PROCESS: Normal thought process present Skin: COMMON NORMALS: no rashes or lesions noted, no wounds, turgor normal, no jaundice, no petechiae and no mottling GENERAL SKIN EXAM: no rashes or lesions noted and turgor normal Course Vital Signs: Vital signs: Vital Signs Temperature 98.2 F 03/02/22 11:33 Pulse Rate 88 03/02/22 11:33 Respiratory Rate 14 03/02/22 11:33 Blood Pressure 194/91 03/02/22 11:33 Pulse Oximetry 100 03/02/22 11:33 Oxygen Delivery Me thod 03/02/22 11:33 MDM - Extremity (Nontraumatic) Medical Decision Making Patient was evaluated in the emergency department for further management of his left stump seroma. Patient reports over the last several days swelling has occurred causing discomfort. Patient has been working towards wound care and thought has not been seeing as of yet. Patient was seen recently and underwent aspiration by Dr. Ring. Patient is seeking another aspiration. Reviewing his records we decided to proceed with aspiration. Area was prepped with Betadine and aspiration was performed in sterile fashion. Scar tissue is evident on entry using an 18-gauge needle. I was not able to aspirate any but collection but after removal of an 18-gauge needle, we were able to express approximately 10 cc of serosanguineous drainage. Patient reports he did have relief in his symptoms of tightness and pain. He has plans to follow-up with wound care tomorrow. No labs were obtained. No antibiotics were given. Patient is to follow-up with primary care wound care and return here as needed for new, concerning, worsening symptoms. Questions sought and answered Medical Records I reviewed the patient's medical records. Discharge Plan Discharge Patient Disposition: Home Clinical Impression: Hx of AKA (above knee amputation), Seroma due to trauma Condition: Stable Prescriptions: No Action aspirin [Adult Aspirin Regimen] 81 mg tablet,delayed release (DR/EC) 81 mg PO DAILY [id number] 3.5-10,000-10 mg-unit-mg/mL drops,suspension 1 drp ophthalmic (eye) QID 5 Days Qty: 7.5 0RF Jardiance 10 mg tablet 10 mg PO DAILY Qty: 90 0RF (DME) FreeStyle Julius 2 Sensor Kit See Rx Instructions .ROUTE .MEDSUPPLY Qty: 1 3RF Rx Instructions: Apply one sensor and change every 14 days. 2 sensors per 28 days clindamycin HCl 300 mg capsule 300 mg PO Q8H 10 Days Qty: 30 0RF amlodipine 10 mg tablet 10 mg PO DAILY Qty: 30 0RF insulin lispro [Humalog KwikPen Insulin] 100 unit/mL insulin pen See Rx Instructions .ROUTE .COMPLEX Qty: 15 0RF Dose Instruction: INJECT 3 TO 24 UNITS SUBCUTANEOUSLY PER SLIDING SCALE. NEEDS A1C Rx Instructions: INJECT 3 TO 24 UNITS SUBCUTANEOUSLY PER SLIDING SCALE. NEEDS A1C polymyxin B sulf-trimethoprim [Polytrim] 10,000 unit- 1 mg/mL drops 1 drp ophthalmic (eye) Q3H 7 Days Qty: 10 0RF Rx Instructions: while awake; do not exceed 6 doses in 24 hours metoprolol tartrate 25 mg tablet See Rx Instructions .ROUTE .COMPLEX Qty: 60 0RF Dose Instruction: TAKE 1 TABLET BY MOUTH TWICE DAILY Rx Instructions: TAKE 1 TABLET BY MOUTH TWICE DAILY FreeStyle Julius 2 [place] Misc See Rx Instructions .ROUTE .COMPLEX Qty: 1 0RF Dose Instruction: USE DIRECTED Rx Instructions: USE DIRECTED Levemir U-100 Insulin 100 unit/mL solution 20 unit SUBCUT BID Qty: 10 2RF Discharge Orders: Discharge ED (Routine); Ordered 03/02/22 Ordered By: Krish Doss Referrals: Elbing,Sarika, TOOL BUILDER [Primary Care Provider] - Discharge Diet: Advance as tolerated Discharge Activity: Resume usual activity Patient Instructions: Opioid Safety, Pain Management Coding Level of Care Code ED Buffer Inflated Pad for Paula Ho
== END 2022-03-02 14:00 | disposition home or self-care (01) ==
PROVIDERS: Emergency Provider Nurse Practitioner; PCP Nurse Practitioner Family
DX: T87.89 Other complications of amputation stump (principal); Z89.612 Acquired absence of left leg above knee; Z79.82 Long term (current) use of aspirin; Z79.4 Long term (current) use of insulin; E11.22 Type 2 diabetes mellitus with diabetic chronic kidney disease; I12.9 Hypertensive chronic kidney disease with stage 1 through stage 4 chronic kidney disease, or unspecified chronic kidney disease; N18.32 Chronic kidney disease, stage 3b; E78.2 Mixed hyperlipidemia; Y79.2 Prosthetic and other implants, materials and accessory orthopedic devices associated with adverse incidents
CPT/HCPCS: 99283

== ENCOUNTER → 2022-04-13 09:19 | Outpatient (BNVA) | payer OTHER, SELFPAY | PROVIDERS: PCP Nurse Practitioner Family; Visit Provider Nurse Practitioner Family | DX: E11.65 Type 2 diabetes mellitus with hyperglycemia (principal); E78.5 Hyperlipidemia, unspecified; I10 Essential (primary) hypertension | CPT/HCPCS: 80053; 80061; 82043; 83036; 83721 ==

== ENCOUNTER → 2022-07-13 09:19 | Outpatient (BNVA) | payer OTHER, SELFPAY | PROVIDERS: PCP Nurse Practitioner Family; Visit Provider Registered Nurse | DX: N18.9 Chronic kidney disease, unspecified (principal) | CPT/HCPCS: 80048; 80069; 82043; 82310; 83970; 85025 ==

== ENCOUNTER → 2022-11-13 10:33 | Outpatient (BNVA) | payer OTHER, SELFPAY | PROVIDERS: PCP Nurse Practitioner Family; Visit Provider Nurse Practitioner Family | DX: I10 Essential (primary) hypertension (principal); E11.65 Type 2 diabetes mellitus with hyperglycemia; E11.69 Type 2 diabetes mellitus with other specified complication; E78.5 Hyperlipidemia, unspecified | CPT/HCPCS: 80061; 83036; 83721 ==

== ENCOUNTER 2023-03-21 02:25 | Inpatient (IN) | payer OTHER, SELFPAY ==
[2023-03-21] VITALS (84 sets, daily range): BP systolic 91–208; BP diastolic 51–139; PULSE 72–95; RESP 8–28; TEMP 36.3–37.1; O2SAT 92–100; BMI 36.9
--- NOTE | 2023-03-21 02:44 | CTR_ITS ---
PROCEDURE INFORMATION: Exam: CT Abdomen And Pelvis With Contrast Exam date and time: 03/21/2023 3:15 AM Age: 58 years old Clinical indication: Nausea and vomiting; Abdominal pain; Patient HX: Epigastric pain with n/v. History of pancreatitis and ckd. ; Additional info: Abd pain HX pancreatitis TECHNIQUE: Imaging protocol: Computed tomography of the abdomen and pelvis with contrast. Radiation optimization: All CT scans at this facility use at least one of these dose optimization techniques: automated exposure control; mA and/or kV adjustment per patient size (includes targeted exams where dose is matched to clinical indication); or iterative reconstruction. Contrast material: OMNI 350; Contrast volume: 80 ml; Contrast route: INTRAVENOUS (IV); COMPARISON: CT abdomen pelvis wo con [id number] 10/03/2021 7:03 PM RADIATION DOSE METRICS: Total DLP (mGy-cm): 1361.23 FINDINGS: Lungs: Several small calcified granulomata in the lower lungs. No significant acute finding in the lower lungs. No pleural fluid. Liver: Unremarkable. Gallbladder and bile ducts: No definite gallbladder abnormality by CT. No biliary tree dilation. Pancreas: Somewhat atrophic appearing pancreas. Otherwise unremarkable pancreas by CT, no surrounding inflammatory changes or fluid. Lack of these findings on CT does not entirely exclude the diagnosis of acute pancreatitis. Please correlate with clinical and laboratory evaluation. Spleen: There are a few very small calcified granulomas in the spleen. Adrenal glands: Unremarkable. Kidneys and ureters: No hydronephrosis of either kidney. No visible ureteral calculus. Subtle area of poor/decreased enhancement in the posterior mid to upper right kidney. Mild adjacent perinephric stranding. While nonspecific, this appearance could be related to focal pyelonephritis. This also might represent some chronic parenchymal scarring. Please correlate clinically. No significant perinephric fluid. Stomach and bowel: No significant bowel distention. There are no CT findings to strongly suggest diverticulitis. Appendix: The appendix is visualized and appears normal. Intraperitoneal space: No free intraperitoneal air, or ascites. Vasculature: Fairly prominent aortic and other vascular calcifications. No evidence for abdominal aortic aneurysm. Lymph nodes: No retroperitoneal adenopathy. Urinary bladder: No visible calculus in the urinary bladder. Reproductive: Essentially unremarkable for age. Bones/joints: No significant acute finding. Soft tissues: No significant acute finding. CT/CT abdomen pelvis w con* [id number] IMPRESSION: 1. Subtle area of possible pyelonephritis involving the right kidney, see above discussion. 2. No free air or significant bowel distention. No evidence for bowel obstruction. 3. No current evidence for acute pancreatitis, see above discussion. 4. Normal appendix. 5. No diverticulitis. 6. Other findings discussed above.
--- NOTE | 2023-03-21 02:46 | CTR_ITS ---
PROCEDURE INFORMATION: Exam: CT Head Without Contrast Exam date and time: 03/21/2023 3:11 AM Age: 58 years old Clinical indication: Pain; Other: Hypertensive; Headache; Patient HX: PATRICK with hypertension 215/130. ; Additional info: Headache HTN TECHNIQUE: Imaging protocol: Computed tomography of the head without contrast. Radiation optimization: All CT scans at this facility use at least one of these dose optimization techniques: automated exposure control; mA and/or kV adjustment per patient size (includes targeted exams where dose is matched to clinical indication); or iterative reconstruction. COMPARISON: CT head wo con* [id number] 10/03/2021 7:01 PM RADIATION DOSE METRICS: Total DLP (mGy-cm): 1093.63 FINDINGS: Brain: There is mild cerebral atrophy. There is mild diffuse heterogeneity of the white matter attenuation, consistent with chronic white matter ischemic changes. Negative for intracranial hemorrhage. Negative for intracranial mass. Negative for mass the brain. Negative for midline shift of the brain. No visible acute brain ischemia. Cerebral ventricles: No ventriculomegaly. Paranasal sinuses: Visualized sinuses are unremarkable. No fluid levels. Mastoid air cells: Visualized mastoid air cells are well aerated. Bones/joints: Unremarkable. No acute fracture. Soft tissues: Unremarkable. CT/CT head wo con* [id number] IMPRESSION: Negative for acute intracranial pathology.
[2023-03-21 02:57] LABS: Basophils % 0.4 %; Eosinophils % 0.1 %; Hematocrit 47.3 % (37-53); Lymphocytes # 1.2 10^3/uL (0.8-4.8); Lymphocytes % 13.1 %; Mean Corpuscular HGB Conc 33.8 g/dL (30-55); Mean Corpuscular Hemoglobin 27.5 pg (27-33); Mean Corpuscular Volume 81.3 fl (82-101); Mean Platelet Volume 10.1 fL (7.4-10.4); Monocytes # 0.3 10^3/uL (0.2-0.9); Neutrophils # 7.69 10^3/uL (1.8-7.7); Neutrophils % 82.6 %; Nucleated Red Blood Cells % 0 %; Platelet Count 348 10^3/cmm (157-399); Red Blood Count 5.82 10^6/uL (3.85-5.65); Red Cell Distribution Width 12.8 % (12.1-15.1); White Blood Count 9.31 10^3/uL (3.29-11.43)
[2023-03-21 03:00] LABS: Add Urine Microscopic? YES; Bilirubin Urine Neg (Negative); Blood Urine 2+ (Negative); Glucose Urine UA 4+ (Normal); Ketones Urine Negative (Negative); Leukocyte Esterase Urine Negative (Negative); Nitrate Urine Negative (Negative); Protein Urine 3+ (Negative); Urine Appearance Hazy (CLEAR); Urine Color Yellow (Yellow); Urobilinogen Urine Norm (Negative); pH Urine 7 (5-7)
[2023-03-21 03:02] LABS: Add Urine Culture? Yes; Bacteria Urine TRACE /hpf; RBC Urine 50-80 /hpf (0-2); Squamous Epithelial Cell Urine 0-4 /hpf (0-5); WBC Urine 15-25 /hpf (0-5)
[2023-03-21 03:05] LABS: INR 0.84 (0.8-1.2)
[2023-03-21] MEDS: morphine 4 mg/mL SDV 1 mL IVP ×2 (03:08→05:58)
[2023-03-21] MEDS: labetalol 5 mg/mL SDV 20mL 20 MG IVP ×2 (03:08→04:41)
[2023-03-21] MEDS: sodium chloride 0.9% 1,000 ML 999 ML IV (03:08)
[2023-03-21] MEDS: enalaprilat 2.5 mg/2 mL SDV 1.25 MG IVP (03:08)
[2023-03-21] MEDS: ondansetron 2 mg/ML SDV 2 mL 4 MG IVP ×2 (03:08→05:57)
[2023-03-21 03:14] LABS: Alanine Aminotransferase 14 U/L (0-41); Albumin Level 4.1 g/dL (3.5-5.2); Alkaline Phosphatase 90 U/L (40-130); Anion Gap 17.1 (5-19); Aspartate Amino Transferase 13 U/L (0-40); Blood Urea Nitrogen 35 mg/dL (8-23); Calcium 10.4 mg/dL (8.5-10.5); Carbon Dioxide 25 mmol/L (22-29); Chloride 94 mmol/L (98-107); Globulin 3.7 g/dL (1.3-4.6); Glomerular Filtration Rate 22.3 mL/min (90-130); Glucose 399 mg/dL (65-115); Lactic Sepsis W/Reflex 2.2 mmol/L (0.5-2.2); Lipase 39 U/L (13-60); Osmolality Calculated 299 mOsm/kg (285-295); Potassium 4.1 mmol/L (3.5-5.1); Sodium 132 mmol/L (136-145); Total Bilirubin 0.2 mg/dL (0.15-1.2); Total Protein 7.8 g/dL (6.6-8.7)
[2023-03-21] MEDS: iohexol 350 mg/mL 500 mL Btl (per mL) IV (03:18)
[2023-03-21] MEDS: insulin regular-human 100 units/1 mL 8 UNIT IVP (04:16)
[2023-03-21] MEDS: amlodipine 10 mg Tablet PO (04:17)
[2023-03-21] MEDS: metoprolol tartrate 25 mg Tablet PO (04:17)
[2023-03-21] MEDS: valproic acid inj 500 MG in sodium chloride 0.9% 50 ML 55 MG IV (04:17)
--- NOTE | 2023-03-21 04:32 | W.ED.ABDPA2 ---
HPI - Abdominal Pain General: Chief Complaint: Abdominal Pain Stated Complaint: stomach pain Time Seen by Provider: 03/21/23 02:44 History of Present Illness: 58-year-old male with a history of hypertension, diabetes, and chronic kidney disease. He presents with 3 days of not feeling well. His main complaint is that of a headache. He has had nausea and vomiting as well. He notes intermittent abdominal pain. He has a history of pancreatitis. His sugar has been high. His blood pressure has been quite high. No focal neurologic problems. No chest pain. Associated Symptoms: Reports nausea and vomiting; Denies diarrhea and fever(s) Review of Systems Const: Denies: fever(s) Eyes: Reports: blurry vision and photophobia ENMT: Denies: throat pain Card: Denies: chest pain or palpitations Resp: Reports: dyspnea and non-productive cough; Denies: productive cough GI: Reports: abdominal pain, nausea and vomiting; Denies: diarrhea Neuro: Reports: headache(s); Denies: numbness in extremities or weakness in extremities Psych: Reports: anxiety PFSH ED PFSH: Medical History Hyperosmolar hyperglycemic state (HHS) DKA (diabetic ketoacidosis) Prosthesis fitting Hypokalemia Hypertensive urgency Microscopic hematuria Nausea and vomiting Diabetes mellitus with gastroparesis Osteomyelitis Contrast dye induced nephropathy Acute renal failure superimposed on stage 3b chronic kidney disease Peripheral arterial disease Acquired rearfoot varus Diabetic peripheral neuropathy associated with type 2 diabetes mellitus 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 Chronic renal impairment Hyperlipidemia associated with type 2 diabetes mellitus Statin intolerance Foot abscess, left Diabetic foot infection Essential hypertension Hyperlipidemia, mixed Diabetes type 2, uncontrolled Surgical History S/P hemodialysis catheter insertion S/P BKA (below knee amputation) (04/05/21) History of partial amputation of toe of right foot History of amputation of lesser toe Amputated toe of right foot secondary to osteomyelitis 4th right toe Family History Father Diabetes Mother Diabetes Other Hypertension Social History Smoking and tobacco/nicotine status: never used tobacco/nicotine Second hand smoke exposure: No Alcohol intake: former Substance/Drug Use: never Adopted: No Caregiver/support person: No Lives independently: Yes Household members: spouse Housing: House Marital status: service: No Current occupational status: employed Pets and animals: Yes Do you think of yourself as: Straight/Heterosexual Current gender identity: Male Physical Exam Const: GENERAL APPEARANCE: cooperative, in distress and ill appearing HENMT: COMMON NORMALS: normocephalic, atraumatic and Normal nasal mucous membranes and turbinates present HEAD & SCALP: normocephalic and atraumatic FACE & SINUS: normal facial exam NOSE: Normal nasal mucous membranes and turbinates present MOUTH: Normal oral and palatal mucosa present and Normal salivary glands and ducts present Eye: COMMON NORMALS: Equal, round and reactive pupils present and EOMs intact bilaterally PUPIL: Yes Equal, round and reactive pupils present Neck/C-Spine: COMMON NORMALS: supple Chest: CHEST: Yes Symmetrical chest wall rise Resp: COMMON NORMALS: normal respiratory effort Cardio: COMMON NORMALS: regular rate and regular rhythm RATE: regular rate RHYTHM: regular rhythm GI: COMMON NORMALS: Normal to inspection, nondistended, normoactive bowel sounds present PALPATION: Yes Tenderness to palpation present (GI) (Minimal diffuse) Neuro: JESS COMA SCALE: document GCS findings Jess coma scale eye opening: Spontaneous [place] coma scale verbal response: Orientated Jess coma scale motor response: Obey commands [place] coma scale total score: 15 CRANIAL NERVES: Yes CN normal except as noted SPEECH: speech normal MOTOR EXAM: Normal motor muscle tone present throughout Psych: ATTITUDE: Yes calm Course Vital Signs: Vital signs: Vital Signs Temperature 98.7 F 03/21/23 18:32 Pulse Rate 86 03/21/23 18:20 Respiratory Rate 15 03/21/23 18:20 Blood Pressure 151/67 03/21/23 18:20 Pulse Oximetry 95 03/21/23 18:20 Oxygen Delivery Me thod Room Air 03/21/23 08:15 MDM - Abdominal Pain Medical Decision Making Patient presents quite hypertensive. His main complaint is a headache. He is given morphine and Zofran, as he is vomiting, and pain. This seemed to improve his symptoms a bit. Next he was given Depacon. He was given multiple antihypertensives to control blood pressure. Blood pressure is now 166/86 and headache is improved. Head CT is negative. Belly CT shows possible subtle pyelonephritis on the right. The patient does not show significant signs of urinary tract infection by urinalysis. He does show signs of nephrotic syndrome. His creatinine is 2.9. BUN is 35. Potassium is 4.1. Sodium 132. Blood pressure came back up despite the above. Was 194 systolic. Starting nicardipine drip. He continues to vomit as well. Sugar is down to 245 after IV insulin, 8 units. Since he is on nicardipine, he will have to go to ICU. Hospitalist notified. They will see the patient. Lab Data 03/21/23 02:42 03/21/23 02:42 Labs/Radiology: Radiology Impressions Abdomen/Pelvis CT 03/21/23 02:44 IMPRESSION: 1. Subtle area of possible pyelonephritis involving the right kidney, see above discussion. 2. No free air or significant bowel distention. No evidence for bowel obstruction. 3. No current evidence for acute pancreatitis, see above discussion. 4. Normal appendix. 5. No diverticulitis. 6. Other findings discussed above. Head CT 03/21/23 02:46 IMPRESSION: Negative for acute intracranial pathology. Laboratory Results WBC 9.31 10^3/uL (3.29-11.43) 03/21/23 02:42 RBC 5.82 10^6/uL (3.85-5.65) H 03/21/23 02:42 Hgb 16.00 g/dL (11.27-16.99) 03/21/23 02:42 Hct 47.3 % (37-53) 03/21/23 02:42 MCV 81.3 fl (82-101) L 03/21/23 02:42 MCH 27.5 pg (27-33) 03/21/23 02:42 MCHC 33.8 g/dL (30-55) 03/21/23 02:42 RDW 12.8 % (12.1-15.1) 03/21/23 02:42 Plt Count 348 10^3/cmm (157-399) 03/21/23 02:42 MPV 10.1 fL (7.4-10.4) 03/21/23 02:42 Neut % (Auto) 82.6 % 03/21/23 02:42 Lymph % (Auto) 13.1 % 03/21/23 02:42 Dougherty % (Auto) 3.0 % 03/21/23 02:42 Eos % (Auto) 0.1 % 03/21/23 02:42 Baso % (Auto) 0.4 % 03/21/23 02:42 Neut # (Auto) 7.69 10^3/uL (1.8-7.7) 03/21/23 02:42 Lymph # (Auto) 1.2 10^3/uL (0.8-4.8) 03/21/23 02:42 [place]herty # (Auto) 0.3 10^3/uL (0.2-0.9) 03/21/23 02:42 Eos # (Auto) 0.0 10^3/uL (0.0-0.8) 03/21/23 02:42 Baso # (Auto) 0.0 10^3/uL (0.0-0.1) 03/21/23 02:42 Nucleated RBC % (auto) 0 % 03/21/23 02:42 Nucleated RBCs # 0.0 /100WBC 03/21/23 02:42 PT 11.80 SECONDS (12.1-14.9) L 03/21/23 02:42 INR 0.84 (0.8-1.2) 03/21/23 02:42 Sodium 132 mmol/L (136-145) L 03/21/23 02:42 Potassium 4.1 mmol/L (3.5-5.1) 03/21/23 02:42 Chloride 94 mmol/L (98-107) L 03/21/23 02:42 Carbon Dioxide 25 mmol/L (22-29) 03/21/23 02:42 Anion Gap 17.1 (5-19) 03/21/23 02:42 BUN 35 mg/dL (8-23) H 03/21/23 02:42 Creatinine 2.9 mg/dL (0.7-1.2) H 03/21/23 02:42 GFR Calculation 22.3 mL/min (90-130) L 03/21/23 02:42 Glucose 399 mg/dL (65-115) H 03/21/23 02:42 POC Glucose 275 mg/dL (70-110) H 03/21/23 06:08 Calculated Osmolality 299 mOsm/kg (285-295) H 03/21/23 02:42 Lactic Acid 2.2 mmol/L (0.5-2.2) 03/21/23 02:42 Lactic Acid (Sepsis) 3.2 mmol/L (0.5-2.2) H 03/21/23 05:38 Calcium 10.4 mg/dL (8.5-10.5) 03/21/23 02:42 Total Bilirubin 0.2 mg/dL (0.15-1.2) 03/21/23 02:42 AST 13 U/L (0-40) 03/21/23 02:42 ALT 14 U/L (0-41) 03/21/23 02:42 Alkaline Phosphatase 90 U/L (40-130) 03/21/23 02:42 C-Reactive Protein 13.0 mg/L (0.0-4.9) H 03/21/23 02:42 Total Protein 7.8 g/dL (6.6-8.7) 03/21/23 02:42 Albumin 4.1 g/dL (3.5-5.2) 03/21/23 02:42 Globulin 3.7 g/dL (1.3-4.6) 03/21/23 02:42 Lipase 39 U/L (13-60) 03/21/23 02:42 Urine Color Yellow (Yellow) 03/21/23 02:42 Urine Appearance Hazy (CLEAR) A 03/21/23 02:42 Urine pH 7 (5-7) 03/21/23 02:42 Ur Specific [place] 1.010 (1.005-1.030) 03/21/23 02:42 Urine Protein 3+ (Negative) H 03/21/23 02:42 Urine Glucose (UA) 4+ (Normal) H 03/21/23 02:42 Urine Ketones Negative (Negative) 03/21/23 02:42 Urine Blood 2+ (Negative) H 03/21/23 02:42 Urine Nitrate Negative (Negative) 03/21/23 02:42 Urine Bilirubin Neg (Negative) 03/21/23 02:42 Urine Urobilinogen Norm mg/dL (Negative) 03/21/23 02:42 Ur Leukocyte Esterase Negative (Negative) 03/21/23 02:42 Urine RBC 50-80 /hpf (0-2) H 03/21/23 02:42 Urine WBC 15-25 /hpf (0-5) H 03/21/23 02:42 Ur Squamous Epith Cells 0-4 /hpf (0-5) H 03/21/23 02:42 Amorphous Sediment Not Reportable 03/21/23 02:42 Urine Bacteria Trace /hpf (NONE) 03/21/23 02:42 Influenza Type A Ag Negative (Negative) 03/21/23 04:47 Influenza Type B Ag Negative (Negative) 03/21/23 04:47 SARS-CoV-2 Ag (Rapid) negative (Negative) 03/21/23 04:47 All radiology interpretation(s) finalized by discharge Critical Care Time Critical Care Time: Critical Care Time: Yes Total Critical Care Time: 35 Attestation: This case had a high probability of a clinically significant, sudden, or life threatening deterioration of this patient's condition which required my full and direct attention, intervention and personal management. Time is independent of any procedures performed. 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
[2023-03-21 04:39] LABS: Reflex Lactate Order REFLEX LACTIC ORDERD
[2023-03-21 05:07] LABS: SARS Covid-2 Antigen negative (Negative)
[2023-03-21 05:23] LABS: Influenza A by IFA Negative (Negative); Influenza B by IFA Negative (Negative)
[2023-03-21 06:03] LABS: Lactic Acid level (Lactate) 3.2 mmol/L (0.5-2.2)
[2023-03-21] MEDS: nicardipine 20 MG/200 ML PREMIX 5 MG IV (06:04)
[2023-03-21 06:11] LABS: Glucose Point of Care 275 mg/dL (70-110)
--- NOTE | 2023-03-21 06:24 | ECG_ITS ---
[facility] Test Date: 2023-03-21 Pat Name: Martir Kruger Department: Room: Gender: Male Coding Technician: : 1965 Requested By: Jacoby Miner Order Number: [id number] Geraldo MD: Roscoe Garner M.D. Measurements Intervals [place] Rate: 88 P: 85 AL: 284 QRS: 73 QRSD: 96 T: 45 QT: 371 QTc: 449 Interpretive Statements SINUS RHYTHM WITH FIRST DEGREE AV BLOCK NONSPECIFIC T-WAVE ABNORMALITY Compared to ECG 10/03/2021 23:49:00 Sinus tachycardia no longer present T-wave abnormality still present Electronically Signed On 03-22-2023 7:55:43 STRIP STAMP STRAIGHTENER by Roscoe Garner M.D. [id number]
[2023-03-21 07:25] LABS: Troponin(5th) Baseline 33 ng/L (0-15)
--- NOTE | 2023-03-21 08:02 | P.HP_ITS ---
Providers/Chief Complaint 2 Admitting Physician: Brittny Brenner MD Primary Care Provider: MARK Kilpatrick Chief Complaint: stomach pain History of Present Illness Martir Kruger is a 58 year old male who has history of diabetes, left below- knee amputation, chronic kidney disease, presented to hospital with chief complaint of headache. In the ER he was diagnosed with hypertensive emergency he was put on Cardene drip that improved his blood pressure, by the time I saw him he was off Cardene drip. Blood pressure above 147/60 mmHg, he was complaining of mild headache, no fever or chest pain. Patient has been compliant with his medications. Patient is stating that he recently noticed that his right upper molar tooth fell off he still has dental caries, no signs of meningitis. Medications/Allergies Home Medications Medication Instructions Recorded Confirmed Last Taken Type prosthetic supplies #1 ea 09/23/22 03/21/23 Unknown Rx insulin detemir U-100 100 unit/mL See Rx Instructions .Route 11/13/22 03/21/23 Unknown Rx (3 mL) subcutaneous pen (Levemir .COMPLEX #15 mL FlexPen) insulin lispro 100 unit/mL See Rx Instructions .Route 03/02/23 03/21/23 Unknown Rx subcutaneous pen .COMPLEX #15 mL flash glucose sensor (FreeStyle #2 ea 03/03/23 03/21/23 Unknown Rx Julius 2 Sensor kit) metoprolol tartrate 25 mg tablet 25 mg PO BID 03/21/23 03/21/23 Unknown History Allergies Allergy/AdvReac Type Severity Reaction Status Date / Time No Known Allergies Allergy Verified 03/21/23 02:39 PFSH Acute 2 PFSH: Medical History Hyperosmolar hyperglycemic state (HHS) DKA (diabetic ketoacidosis) Prosthesis fitting Hypokalemia Hypertensive urgency Microscopic hematuria Nausea and vomiting Diabetes mellitus with gastroparesis Osteomyelitis Contrast dye induced nephropathy Acute renal failure superimposed on stage 3b chronic kidney disease Peripheral arterial disease Acquired rearfoot varus Diabetic peripheral neuropathy associated with type 2 diabetes mellitus 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 Chronic renal impairment Hyperlipidemia associated with type 2 diabetes mellitus Statin intolerance Foot abscess, left Diabetic foot infection Essential hypertension Hyperlipidemia, mixed Diabetes type 2, uncontrolled Surgical History S/P hemodialysis catheter insertion S/P BKA (below knee amputation) (04/05/21) History of partial amputation of toe of right foot History of amputation of lesser toe Amputated toe of right foot secondary to osteomyelitis 4th right toe Family History Father Diabetes Mother Diabetes Other Hypertension Social History Smoking and tobacco/nicotine status: never used tobacco/nicotine Second hand smoke exposure: No Alcohol intake: former Substance/Drug Use: never Adopted: No Caregiver/support person: No Lives independently: Yes Household members: spouse Housing: House Marital status: service: No Current occupational status: employed Pets and animals: Yes Do you think of yourself as: Straight/Heterosexual Current gender identity: Male Vitals/I&O/Wt Last Vital Signs Temp 97.4 F L 03/21/23 02:34 Pulse 87 03/21/23 07:00 Resp 16 03/21/23 07:00 BP 143/68 03/21/23 07:00 Pulse Ox 97 03/21/23 07:00 O2 Del Method Room Air 03/21/23 07:30 03/20/23 03/21/23 03/21/23 22:59 06:59 14:59 Intake Total 1057.833 / 1057.833 Balance 1057.833 / 1057.833 Weight last 48 hrs Weight 113.398 kg Weight 113.398 kg Physical Exam 2 Narrative: Nonfocal neuroexam No sign of fluid overload No sign of meningitis Right upper molar dental caries No fever NIH 0 Abdomen soft Pleasant cooperative Blood pressure stable at the point of my evaluation No active signs of confusion S1, S2 Currently room air Data 03/21/23 02:42 03/21/23 02:42 A&P Assessment and plan (1) Hypertensive urgency: (2) Hyperlipidemia associated with type 2 diabetes mellitus: (3) Intractable vomiting: (4) Acute on chronic kidney failure: (5) Chronic renal impairment: (6) Migraine: (7) Need for dental care: Plan Hypertensive emergency Cardene drip turned off at the time of my evaluation Hemoglobin stable No active chest pain Insulin-dependent diabetes Continue insulin sliding scale Headache: No blurry vision patient is stating that he has diabetic retinopathy, nonfocal neuroexam CT head unremarkable My threshold to get MRV and MRI head will stay low because of his recent dental caries and dental decay I will put him on Augmentin Can transfer out of ICU if blood pressure remains stable For now admit to ICU Full code Nondialysis renal diet Acute on chronic kidney disease: Patient looks euvolemic Avoid nephrotoxic agents chronic Disease stage III atbaseline will consult nephro Attestations 2 Medical Necessity Statement*: Next anticipated more than 2 midnights anticipated because of hypertensive emergency, acute on chronic kidney disease, headache Diagnoses Hypertensive urgency I16.0 Hyperlipidemia associated with type 2 diabetes mellitus E11.69; E78.5 Intractable vomiting R11.10 Acute on chronic kidney failure N17.9; N18.9 Chronic renal impairment N18.9 Migraine G43.909 Need for dental care Z91.89
--- NOTE | 2023-03-21 08:13 | ECG_ITS ---
[facility] Test Date: 2023-03-21 Pat Name: Martir Kruger Department: Room: ICU12 Gender: Male Recruitment Manager: : 1965 Requested By: Jacoby Miner Order Number: [id number] Geraldo MD: Roscoe Garner M.D. Measurements Intervals [place] Rate: 89 P: 0 NE: 0 QRS: 38 QRSD: 87 T: 67 QT: 357 QTc: 436 Interpretive Statements SUPRAVENTRICULAR RHYTHM NONSPECIFIC T-WAVE ABNORMALITY Compared to ECG 03/21/2023 06:24:43 Supraventricular rhythm now present Sinus rhythm no longer present First degree AV block no longer present T-wave abnormality still present Electronically Signed On 03-22-2023 8:04:34 STRIP DEBURRER by Roscoe Garner M.D. [id number]
[2023-03-21 08:25] LABS: Glucose Point of Care 394 mg/dL (70-110)
[2023-03-21] MEDS: sennosides-docusate Tablet 1 TAB PO (08:36)
[2023-03-21] MEDS: morphine IR 15 mg Tablet PO (08:36)
[2023-03-21] MEDS: heparin 5,000 unit/mL INJ 1 mL 5000 UNIT SUBCUT ×3 (08:36→17:26)
[2023-03-21] MEDS: insulin lispro 100 unit/1 mL SUBCUT ×4 (08:57→20:38)
[2023-03-21 10:43] LABS: Troponin 5 2HR 40.05 ng/L (0-15); Troponin 5 2HR Delta 7.05 ABS# (0-10)
[2023-03-21 10:53] LABS: Thyroid Stimulating Hormone 2.51 uIU/mL (0.27-4.20)
[2023-03-21 10:59] LABS: Estmated Average Glucose 249; Hemoglobin A1C 10.3 % (4.0-6.0)
[2023-03-21 11:42] LABS: Glucose Point of Care 317 mg/dL (70-110)
--- NOTE | 2023-03-21 12:18 | ECG_ITS ---
[facility] Test Date: 2023-03-21 Pat Name: Martir Kruger Department: Room: ICU12 Gender: Male Financial Services Agent: : 1965 Requested By: Jacoby Miner Order Number: [id number] Geraldo MD: Roscoe Garner M.D. Measurements Intervals [place] Rate: 89 P: 0 [place]: 0 QRS: 48 QRSD: 69 T: 76 QT: 353 QTc: 431 Interpretive Statements SUPRAVENTRICULAR RHYTHM NONSPECIFIC ST & T-WAVE ABNORMALITY ABNORMAL RHYTHM ECG Compared to ECG 03/21/2023 08:13:20 No significant changes Electronically Signed On 03-22-2023 8:03:27 CEMENTER HELPER by Roscoe Garner M.D. [id number]
--- NOTE | 2023-03-21 12:55 | PC.NURSE ---
off cardene gtt at this time no further nausea , migrane head ache better at this time according to pt
--- NOTE | 2023-03-21 13:35 | P.CONIM_ITS ---
Providers/Reason For Consult 2 Consulting Physician/Specialty*: [facility]/Nephrology Reason for Consult*: esrd Attending Physician: Woodrow Metzger MD Primary Care Provider: MARK Kilpatrick History of Present Illness History of Present Illness Martir Kruger is a 58 year old male Patient is a 58-year-old male with past medical history of diabetes, hypertension, chronic kidney disease-followed by Dr. Haro from renal failure nephrology, presented to the emergency department with a chief, chief complaint of headache. Patient was found to be in hypertensive emergency with systolic blood pressures more than 200s and diastolic blood pressures more than 1 teens. Patient was started on Cardene drip and was admitted to ICU. Lab data significant for sodium of 132 and creatinine of 2.9. Patient currently denies any complaints, most recent blood pressures are in the 120s and 1 teens range and Cardene drip has been off. Review of Systems 2 Narrative: other ros negative Medications/Allergies Home Medications Medication Instructions Recorded Confirmed Last Taken Type prosthetic supplies #1 ea 09/23/22 03/21/23 Unknown Rx insulin detemir U-100 100 unit/mL See Rx Instructions .Route 11/13/22 03/21/23 Unknown Rx (3 mL) subcutaneous pen (Levemir .COMPLEX #15 mL FlexPen) insulin lispro 100 unit/mL See Rx Instructions .Route 03/02/23 03/21/23 Unknown Rx subcutaneous pen .COMPLEX #15 mL flash glucose sensor (FreeStyle #2 ea 03/03/23 03/21/23 Unknown Rx Julius 2 Sensor kit) metoprolol tartrate 25 mg tablet 25 mg PO BID 03/21/23 03/21/23 Unknown History Allergies Allergy/AdvReac Type Severity Reaction Status Date / Time No Known Allergies Allergy Verified 03/21/23 02:39 Current Medications Generic Name Dose Route Start Last Admin Trade Name Freq PRN Reason Stop Dose Admin Heparin Sodium (Porcine) 5,000 unit 03/21/23 08:15 03/21/23 08:36 Heparin 5,000 Unit/Ml Inj 1 Ml SUBCUT 5,000 unit Q8H MANUELA Administration Nicardipine/Sodium Chloride 20 mg in 200 mls @ 0 mls/hr 03/21/23 06:00 03/21/23 08:30 Cardene IV 0 mg/hr .Q0M MANUELA 0 mls/hr Titration Protocol Per Protocol Insulin Human Lispro 0 unit 03/21/23 08:00 03/21/23 12:00 Insulin Lispro 100 Unit/1 Ml SUBCUT 12 unit WM&BEDTIME MANUELA Administration Protocol Morphine Sulfate 15 mg 03/21/23 08:02 03/21/23 08:36 Morphine Ir 15 Mg Tablet PO 15 mg Q6H PRN Administration MODERATE PAIN Senna/Docusate Sodium 1 tab 03/21/23 09:00 03/21/23 08:36 Sennosides-Docusate Tablet PO 1 tab DAILY MANUELA Administration PFSH Acute 2 PFSH: Medical History Hyperosmolar hyperglycemic state (HHS) DKA (diabetic ketoacidosis) Prosthesis fitting Hypokalemia Hypertensive urgency Microscopic hematuria Nausea and vomiting Diabetes mellitus with gastroparesis Osteomyelitis Contrast dye induced nephropathy Acute renal failure superimposed on stage 3b chronic kidney disease Peripheral arterial disease Acquired rearfoot varus Diabetic peripheral neuropathy associated with type 2 diabetes mellitus 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 Chronic renal impairment Hyperlipidemia associated with type 2 diabetes mellitus Statin intolerance Foot abscess, left Diabetic foot infection Essential hypertension Hyperlipidemia, mixed Diabetes type 2, uncontrolled Surgical History S/P hemodialysis catheter insertion S/P BKA (below knee amputation) (04/05/21) History of partial amputation of toe of right foot History of amputation of lesser toe Amputated toe of right foot secondary to osteomyelitis 4th right toe Family History Father Diabetes Mother Diabetes Other Hypertension Social History Smoking and tobacco/nicotine status: never used tobacco/nicotine Second hand smoke exposure: No Alcohol intake: former Substance/Drug Use: never Adopted: No Caregiver/support person: No Lives independently: Yes Household members: spouse Housing: House Marital status: service: No Current occupational status: employed Pets and animals: Yes Do you think of yourself as: Straight/Heterosexual Current gender identity: Male Vitals/I&O/Wt Last Vital Signs Temp 97.4 F L 03/21/23 02:34 Pulse 90 03/21/23 08:15 Resp 22 H 03/21/23 08:36 BP 143/68 03/21/23 07:00 Pulse Ox 97 03/21/23 08:15 O2 Del Method Room Air 03/21/23 08:15 03/20/23 03/21/23 03/21/23 22:59 06:59 14:59 Intake Total 1057.833 / 1057.833 454.667 / 454.667 Balance 1057.833 / 1057.833 454.667 / 454.667 Weight last 48 hrs Weight 113.398 kg Weight 113.398 kg Physical Exam 2 Narrative: awake , alert No distress No edema Data 03/21/23 02:42 03/21/23 02:42 A&P Assessment and plan (1) Acute on chronic kidney failure: 1. Acute on chronic kidney disease stage III: Baseline creatinine in the mid [address] Haro from [facility] as outpatient. Patient now has a creatinine of 2.9 in the setting of hypertensive emergency. -Continue to monitor renal function, avoid nephrotoxins 2. Hypertensive emergency: Was on metoprolol at home, ? compliance with meds. status post Cardene drip, will nifedipine extended release 60 mg daily, carvedilol 3.125 mg p.o. twice daily. 3. Diabetes type 2. Patient evaluated using virtual cart. Time spent 40 minutes. Currently Consult Attestations 2 Medical Necessity Statement: per sushila Coding Level of Care Code Acute Code for Chg Fwd Diagnoses Acute on chronic kidney failure N17.9; N18.9
[2023-03-21 14:35] LABS: Troponin 5 6HR 44.97 ng/L (0-15); Troponin 5 6HR Delta 11.97 ng/L (0-12)
[2023-03-21] MEDS: calcium carbonate 500 mg Chew Tablet PO (15:43)
[2023-03-21 16:46] LABS: Glucose Point of Care 167 mg/dL (70-110)
[2023-03-21] MEDS: carvedilol 3.125 mg Tablet PO (17:26)
[2023-03-21 20:57] LABS: Glucose Point of Care 187 mg/dL (70-110)
[2023-03-22] VITALS (94 sets, daily range): BP systolic 99–194; BP diastolic 47–128; PULSE 0–100; RESP 8–24; TEMP 36.2–37.1; O2SAT 5–97; BMI 36.1
[2023-03-22] MEDS: heparin 5,000 unit/mL INJ 1 mL 5000 UNIT SUBCUT ×3 (00:38→17:36)
[2023-03-22 04:08] LABS: Basophils % 0.2 %; Eosinophils % 0.3 %; Hematocrit 41.3 % (37-53); Lymphocytes # 1.1 10^3/uL (0.8-4.8); Lymphocytes % 11.5 %; Mean Corpuscular HGB Conc 32.4 g/dL (30-55); Mean Corpuscular Hemoglobin 27.5 pg (27-33); Mean Corpuscular Volume 84.8 fl (82-101); Mean Platelet Volume 10.1 fL (7.4-10.4); Monocytes # 0.5 10^3/uL (0.2-0.9); Monocytes % 5.1 %; Neutrophils % 82.3 %; Nucleated Red Blood Cells % 0 %; Platelet Count 265 10^3/cmm (157-399); Red Blood Count 4.87 10^6/uL (3.85-5.65); Red Cell Distribution Width 13.4 % (12.1-15.1); White Blood Count 9.73 10^3/uL (3.29-11.43)
[2023-03-22 04:38] LABS: Blood Urea Nitrogen 42 mg/dL (8-23); Calcium 9.2 mg/dL (8.5-10.5); Carbon Dioxide 24 mmol/L (22-29); Chloride 93 mmol/L (98-107); Glucose 330 mg/dL (65-115); Magnesium 2.4 mg/dL (1.7-2.3); Osmolality Calculated 295 mOsm/kg (285-295); Sodium 131 mmol/L (136-145)
[2023-03-22 04:41] LABS: Anion Gap 18.4 (5-19); Potassium 4.4 mmol/L (3.5-5.1)
[2023-03-22] MEDS: nicardipine 20 MG/200 ML PREMIX 125 MG IV ×2 (06:01→08:25)
[2023-03-22] MEDS: ondansetron 2 mg/ML SDV 2 mL 4 MG IVP ×3 (06:04→22:02)
[2023-03-22 09:05] LABS: Glucose Point of Care 401 mg/dL (70-110)
[2023-03-22] MEDS: insulin lispro 100 unit/1 mL SUBCUT ×3 (09:14→20:30)
[2023-03-22] MEDS: sennosides-docusate Tablet 1 TAB PO (09:54)
[2023-03-22] MEDS: NIFEdipine ER (24 hr) 30 mg Tablet 60 MG PO (09:54)
[2023-03-22] MEDS: carvedilol 3.125 mg Tablet PO ×2 (09:54→17:36)
--- NOTE | 2023-03-22 11:20 | P.PN_ITS ---
Subjective 2 Subjective: poor po intake due to nausea Medications: Reviewed: Yes Vitals/I&O/Wt Last Vital Signs Temp 97.8 F 03/22/23 08:15 Pulse 91 03/22/23 10:15 Resp 12 03/22/23 10:15 BP 116/70 03/22/23 10:15 Pulse Ox 90 03/22/23 10:15 O2 Del Method Room Air 03/22/23 09:30 03/21/23 03/22/23 03/22/23 22:59 06:59 14:59 Intake Total 830 / 1284.667 592.500 / 1877.167 332.917 / 332.917 Output Total 450 / 450 325 / 775 Balance 380 / 834.667 267.500 / 1102.167 332.917 / 332.917 Weight last 48 hrs Weight 110.994 kg Weight 113.398 kg Weight 113.398 kg Physical Exam 2 Narrative: awake , alert No distress No edema Data 03/22/23 03:46 03/22/23 03:46 Micro: Microbiology 03/21/23 02:42 Urine Culture - Preliminary Urine,Clean Catch A&P Assessment and plan (1) Acute on chronic kidney failure: 1. Acute on chronic kidney disease stage III: Baseline creatinine in the mid [address] Haro from [facility] as outpatient. Patient presented with creatinine of 2.9 in the setting of hypertensive emergency, now cr worse @ 4.1 - from hemodynamic changes due to fluctuating bP Also recieved contrast on 03/21/23 --> renal fxn may get further worse start IVFs -Continue to monitor renal function, avoid nephrotoxins 2. Hypertensive emergency: Was on metoprolol at home, ? compliance with meds. status post Cardene drip, added nifedipine extended release 60 mg daily, carvedilol 3.125 mg p.o. twice daily. 3. Diabetes type 2. 4. nausea Patient evaluated using virtual cart. Time spent 20 minutes. Attestations 2 Medical Necessity Statement*: per sushila Coding Level of Care Code Acute Code for Chg Fwd Diagnoses Acute on chronic kidney failure N17.9; N18.9
--- NOTE | 2023-03-22 11:28 | P.PN_ITS ---
Subjective 2 Subjective: Consulted nephro for worsening of creatinine Contrast-induced nephropathy? IV fluid started today Blood pressure high on Cardene which is being weaned off Will request MRV for persistent headache Vitals/I&O/Wt Last Vital Signs Temp 97.8 F 03/22/23 08:15 Pulse 91 03/22/23 10:15 Resp 12 03/22/23 10:15 BP 116/70 03/22/23 10:15 Pulse Ox 90 03/22/23 10:15 O2 Del Method Room Air 03/22/23 09:30 03/21/23 03/22/23 03/22/23 22:59 06:59 14:59 Intake Total 830 / 1284.667 592.500 / 1877.167 332.917 / 332.917 Output Total 450 / 450 325 / 775 Balance 380 / 834.667 267.500 / 1102.167 332.917 / 332.917 Weight last 48 hrs Weight 110.994 kg Weight 113.398 kg Weight 113.398 kg Physical Exam 2 Narrative: Awake and alert Euvolemic GCS 15 Pleasant and cooperative Currently on room air Complaining of headache No sign meningitis Afebrile Data 03/22/23 03:46 03/22/23 03:46 Micro: Microbiology 03/21/23 02:42 Urine Culture - Preliminary Urine,Clean Catch A&P Assessment and plan (1) Hypertension: (2) Hypertensive urgency: (3) Diabetes type 2, uncontrolled: Qualifiers: Glycemic state: with hyperglycemia Qualified Code(s): E11.65 - Type 2 diabetes mellitus with hyperglycemia (4) Acute on chronic kidney failure: (5) Migraine: Plan Will request MRV to rule out cerebral venous thrombosis Acute on chronic kidney disease nephro consulted Contrast-induced nephropathy? Started IV fluids Renal Cardene drip Optimize antihypertensive regimen Hyperglycemia with type 2 diabetes Will increase intensity to high instead of medium dose sliding scale Hemoglobin A1c still around 10 I will increase the dose of Lantus Attestations 2 Medical Necessity Statement*: Continue medical management Diagnoses Hypertension I10 Hypertensive urgency I16.0 Uncontrolled type 2 diabetes mellitus with hyperglycemia E11.65 Glycemic state: with hyperglycemia Acute on chronic kidney failure N17.9; N18.9 Migraine G43.909
--- NOTE | 2023-03-22 11:29 | MR_ITS ---
WS: [id number] MRI VENOGRAM INDICATION: Headache with hypertension TECHNIQUE: MR venogram with axial 2D gkfg-wn-lsxntw technique and sagittal 3D eiac-kx-dsnszr techniqu e with maximum intensity projection images. FINDINGS: No evidence of dural sinus thrombosis. Jugular veins are patent at the skull base. Normal s igmoid and transverse sinuses. Normal sagittal sinus. Normal straight sinus and internal cerebral vei ns. IMPRESSION: Normal venogram. No evidence of dural sinus thrombosis.
--- NOTE | 2023-03-22 12:00 | PC.NURSE ---
Pt in bathroom puking and trying to have BM. He unhooked all his monitoring wires.
[2023-03-22] MEDS: metoclopramide 5 mg/mL SDV 2 mL IVP (13:16)
[2023-03-22] MEDS: sodium chloride 0.9% 1,000 ML 100 ML IV (13:16)
[2023-03-22] MEDS: insulin glargine 100 units/1 mL 30 UNIT SUBCUT ×2 (13:20→17:36)
[2023-03-22 13:24] LABS: Glucose Point of Care 291 mg/dL (70-110)
[2023-03-22 17:32] LABS: Glucose Point of Care 120 mg/dL (70-110)
[2023-03-22 20:28] LABS: Glucose Point of Care 158 mg/dL (70-110)
[2023-03-22] MEDS: hyDRALAzine 10 mg Tablet PO (20:56)
--- NOTE | 2023-03-22 21:00 | PC.NURSE ---
Blood Pressure Patient's blood pressure remaining elevated, ranging from 171-188 systolic and 72-[address] Connors contacted and order received to start hydralazine 10 mg PO QID. See MAR for details.
[2023-03-23] VITALS (53 sets, daily range): BP systolic 136–198; BP diastolic 58–112; PULSE 83–102; RESP 8–24; TEMP 36.1–36.9; O2SAT 91–98; BMI 36.8
[2023-03-23] MEDS: heparin 5,000 unit/mL INJ 1 mL 5000 UNIT SUBCUT ×4 (00:15→23:35)
[2023-03-23] MEDS: sodium chloride 0.9% 1,000 ML 100 ML IV (00:15)
[2023-03-23 03:45] LABS: Basophils % 0.1 %; Eosinophils % 0.3 %; Hematocrit 38.7 % (37-53); Lymphocytes # 1.7 10^3/uL (0.8-4.8); Lymphocytes % 18.2 %; Mean Corpuscular HGB Conc 32.6 g/dL (30-55); Mean Corpuscular Hemoglobin 27.6 pg (27-33); Mean Corpuscular Volume 84.7 fl (82-101); Mean Platelet Volume 9.8 fL (7.4-10.4); Monocytes # 0.6 10^3/uL (0.2-0.9); Monocytes % 6.4 %; Neutrophils # 7.03 10^3/uL (1.8-7.7); Neutrophils % 74.6 %; Nucleated Red Blood Cells % 0 %; Platelet Count 282 10^3/cmm (157-399); Red Blood Count 4.57 10^6/uL (3.85-5.65); Red Cell Distribution Width 13.1 % (12.1-15.1); White Blood Count 9.43 10^3/uL (3.29-11.43)
[2023-03-23 04:09] LABS: Anion Gap 17.9 (5-19); Blood Urea Nitrogen 53 mg/dL (8-23); Calcium 8.3 mg/dL (8.5-10.5); Carbon Dioxide 23 mmol/L (22-29); Chloride 96 mmol/L (98-107); Glomerular Filtration Rate 11.6 mL/min (90-130); Glucose 134 mg/dL (65-115); Osmolality Calculated 292 mOsm/kg (285-295); Potassium 3.9 mmol/L (3.5-5.1); Sodium 133 mmol/L (136-145)
[2023-03-23] MEDS: hyDRALAzine 10 mg Tablet PO ×4 (06:30→21:09)
[2023-03-23] MEDS: carvedilol 3.125 mg Tablet PO (06:31)
--- NOTE | 2023-03-23 06:38 | PC.NURSE ---
Blood Pressure Patient's blood pressure remaining elevated, 180-190s systolic. Dr. Connors contacted and order received to administer 0900 dose of 3.125 mg PO coreg and 10 mg PO hydralazine now. See MAR for details.
--- NOTE | 2023-03-23 06:56 | P.PN_ITS ---
Subjective 2 Subjective: uop dropped Medications: Reviewed: Yes Vitals/I&O/Wt Last Vital Signs Temp 98.4 F 03/23/23 04:45 Pulse 92 03/23/23 06:00 Resp 14 03/23/23 06:00 BP 186/94 03/23/23 06:00 Pulse Ox 97 03/23/23 06:00 O2 Del Method Room Air 03/23/23 04:45 03/22/23 03/22/23 03/23/23 14:59 22:59 06:59 Intake Total 607.917 / 342.838 4358.667 / 2489.584 648.667 / 3138.251 Output Total 600 / 600 200 / 800 Balance 7.917 / 7.917 1681.667 / 1689.584 648.667 / 2338.251 Weight last 48 hrs Weight 113.262 kg Weight 110.994 kg Weight 113.398 kg Physical Exam 2 Narrative: awake , alert No distress No edema Data 03/23/23 03:35 03/23/23 03:35 Micro: Microbiology 03/21/23 02:42 Urine Culture - Preliminary Urine,Clean Catch A&P Assessment and plan (1) Acute on chronic kidney failure: 1. Acute on chronic kidney disease stage III: Baseline creatinine in the mid [address] Haro from [facility] as outpatient. Patient presented with creatinine of 2.9 in the setting of hypertensive emergency, now cr worse @ 1.1 - from hemodynamic changes due to fluctuating bP Also recieved contrast on 03/21/23 - renal fxn worse today, Lytes and volume status stable , No indication for HD -Continue to monitor renal function, avoid nephrotoxins 2. Hypertensive emergency: Was on metoprolol at home, ? compliance with meds. status post Cardene drip, added nifedipine, hydralazine and , carvedilol 3. Diabetes type 2. 4. nausea Patient evaluated using virtual cart. Time spent 20 minutes. Plan per mediicne Attestations 2 Medical Necessity Statement*: per sushila Coding Level of Care Code Acute Code for Chg Fwd Diagnoses Acute on chronic kidney failure N17.9; N18.9
[2023-03-23 07:30] LABS: Glucose Point of Care 127 mg/dL (70-110)
[2023-03-23] MEDS: NIFEdipine ER (24 hr) 30 mg Tablet 60 MG PO (09:01)
[2023-03-23] MEDS: sennosides-docusate Tablet 1 TAB PO (09:02)
[2023-03-23] MEDS: carvedilol 6.25 mg Tablet PO ×2 (09:02→16:34)
[2023-03-23] MEDS: hyDRALAzine 25 mg Tablet 75 MG PO ×3 (09:02→21:09)
[2023-03-23] MEDS: insulin glargine 100 units/1 mL 30 UNIT SUBCUT ×2 (09:02→18:04)
[2023-03-23 11:20] LABS: Glucose Point of Care 182 mg/dL (70-110)
--- NOTE | 2023-03-23 11:40 | P.PN_ITS ---
Subjective 2 Subjective: Patient can be transferred out of ICU Cardene drip has been turned off Creatinine worsened Fluids discontinued Headache improved MRV unremarkable Vitals/I&O/Wt Last Vital Signs Temp 98.4 F 03/23/23 04:45 Pulse 86 03/23/23 07:29 Resp 16 03/23/23 07:29 BP 186/94 03/23/23 06:00 Pulse Ox 91 03/23/23 07:29 O2 Del Method Room Air 03/23/23 07:29 03/22/23 03/23/23 03/23/23 22:59 06:59 14:59 Intake Total 1881.667 / 2489.584 648.667 / 3138.251 Output Total 200 / 800 0 / 800 450 / 450 Balance 1681.667 / 1689.584 648.667 / 2338.251 -450 / -450 Weight last 48 hrs Weight 113.262 kg Weight 110.994 kg Physical Exam 2 Narrative: GCS 15 Nonfocal neuroexam Signs of fluid overload S1, S2 Normotensive Pleasant cooperative Laying supine Currently on room air Data 03/23/23 03:35 03/23/23 03:35 Micro: Microbiology 03/21/23 02:42 Urine Culture - Final Urine,Clean Catch A&P Assessment and plan (1) Diabetes type 2, uncontrolled: Qualifiers: Glycemic state: with hyperglycemia Qualified Code(s): E11.65 - Type 2 diabetes mellitus with hyperglycemia (2) Need for dental care: (3) Chronic renal impairment: (4) Acute on chronic kidney failure: (5) Migraine: (6) Hypertensive crisis: Plan Hypertensive crisis: Discontinue Cardene drip Appreciate nephro recommendations for antihypertensive regimen adjustment Contrast-induced nephropathy: Creatinine peaked Urine output is being monitored Discontinue IV fluids Patient looks hypervolemic Can be transferred out of ICU Insulin-dependent diabetes No active signs of gastroparesis Headache improved MRV unremarkable Full code Transfer out of ICU to [facility] Attestations 2 Medical Necessity Statement*: Continue medical management Diagnoses Uncontrolled type 2 diabetes mellitus with hyperglycemia E11.65 Glycemic state: with hyperglycemia Need for dental care Z91.89 Chronic renal impairment N18.9 Acute on chronic kidney failure N17.9; N18.9 Migraine G43.909 Hypertensive crisis I16.9
[2023-03-23] MEDS: insulin lispro 100 unit/1 mL SUBCUT ×2 (12:35→21:09)
--- NOTE | 2023-03-23 16:05 | PC.NURSE ---
Pt transferred to room 260 via W/C with ALL of his belongings. Further updates given to JAMES Cruz
--- NOTE | 2023-03-23 16:09 | PC.NURSE ---
Report called to [facility]. Report given to JAMES Cruz
[2023-03-23 16:28] LABS: Glucose Point of Care 91 mg/dL (70-110)
--- NOTE | 2023-03-23 17:51 | PC.NURSE ---
Patient has done well since arriving to the floor. Currently up in the chair eating supper. No complaints at this time.
[2023-03-23 20:59] LABS: Glucose Point of Care 233 mg/dL (70-110)
[2023-03-24] VITALS (8 sets, daily range): BP systolic 129–179; BP diastolic 73–83; PULSE 80–95; RESP 16–18; TEMP 36.3–37.1; O2SAT 93–97; BMI 37.6
[2023-03-24 00:30] LABS: Glucose Point of Care 88 mg/dL (70-110)
[2023-03-24 05:42] LABS: Anion Gap 15.8 (5-19); Blood Urea Nitrogen 66 mg/dL (8-23); Calcium 8.3 mg/dL (8.5-10.5); Carbon Dioxide 23 mmol/L (22-29); Chloride 96 mmol/L (98-107); Glomerular Filtration Rate 12.2 mL/min (90-130); Glucose 173 mg/dL (65-115); Osmolality Calculated 295 mOsm/kg (285-295); Potassium 3.8 mmol/L (3.5-5.1); Sodium 131 mmol/L (136-145)
[2023-03-24 06:39] LABS: Glucose Point of Care 172 mg/dL (70-110)
[2023-03-24] MEDS: heparin 5,000 unit/mL INJ 1 mL 5000 UNIT SUBCUT ×2 (08:09→17:10)
[2023-03-24] MEDS: insulin glargine 100 units/1 mL 30 UNIT SUBCUT ×2 (08:09→17:10)
[2023-03-24] MEDS: carvedilol 6.25 mg Tablet PO ×2 (08:09→17:10)
[2023-03-24] MEDS: sennosides-docusate Tablet 1 TAB PO (08:10)
[2023-03-24] MEDS: hyDRALAzine 25 mg Tablet 75 MG PO ×3 (08:10→22:03)
[2023-03-24] MEDS: NIFEdipine ER (24 hr) 30 mg Tablet 60 MG PO (08:10)
[2023-03-24] MEDS: hyDRALAzine 10 mg Tablet PO (08:10)
[2023-03-24] MEDS: insulin lispro 100 unit/1 mL SUBCUT ×2 (08:24→22:03)
--- NOTE | 2023-03-24 10:19 | P.PN_ITS ---
Subjective 2 Subjective: Off fluids Adequate urine output Creatinine improving Nephrology recommended observation patient 1 more day Vitals/I&O/Wt Last Vital Signs Temp 98.1 F 03/24/23 07:28 Pulse 80 03/24/23 09:41 Resp 16 03/24/23 09:41 BP 146/73 03/24/23 07:28 Pulse Ox 93 03/24/23 09:41 O2 Del Method Room Air 03/24/23 09:41 03/23/23 03/24/23 03/24/23 22:59 06:59 14:59 Intake Total 610 / 2026.667 480 / 2506.667 360 / 360 Output Total 400 / 1250 500 / 1750 300 / 300 Balance 210 / 776.667 -20 / 756.667 60 / 60 Weight last 48 hrs Weight 115.621 kg Weight 113.262 kg Physical Exam 2 Narrative: Patient is not extremely fluid overloaded Laying supine Pleasant cooperative No active emesis Headache improved Nonfocal neuroexam S1, S2 Abdomen soft Data 03/23/23 03:35 03/24/23 05:06 Micro: Microbiology 03/21/23 02:42 Urine Culture - Final Urine,Clean Catch A&P Assessment and plan (1) Hypertension: (2) Hypertensive crisis: (3) Diabetes type 2, uncontrolled: Qualifiers: Glycemic state: with hyperglycemia Qualified Code(s): E11.65 - Type 2 diabetes mellitus with hyperglycemia (4) Need for dental care: (5) Chronic renal impairment: (6) Acute on chronic kidney failure: (7) Migraine: (8) Contrast-induced nephropathy: Plan Will watch patient 1 more day Creatinine improving Adequate urine output No active indication for dialysis Headache improved, no active migraine MRV unremarkable Plan to discharge tomorrow if creatinine trending down Blood sugar is better on current sliding scale and insulin regimen Attestations 2 Medical Necessity Statement*: Continue medical management Diagnoses Hypertension I10 Hypertensive crisis I16.9 Uncontrolled type 2 diabetes mellitus with hyperglycemia E11.65 Glycemic state: with hyperglycemia Need for dental care Z91.89 Chronic renal impairment N18.9 Acute on chronic kidney failure N17.9; N18.9 Migraine G43.909 Contrast-induced nephropathy N14.11; T50.8X5A
--- NOTE | 2023-03-24 10:40 | P.PN_ITS ---
Subjective 2 Subjective: no new complaints Medications: Reviewed: Yes Vitals/I&O/Wt Last Vital Signs Temp 98.1 F 03/24/23 07:28 Pulse 80 03/24/23 09:41 Resp 16 03/24/23 09:41 BP 146/73 03/24/23 07:28 Pulse Ox 93 03/24/23 09:41 O2 Del Method Room Air 03/24/23 09:41 03/23/23 03/24/23 03/24/23 22:59 06:59 14:59 Intake Total 610 / 2026.667 480 / 2506.667 360 / 360 Output Total 400 / 1250 500 / 1750 300 / 300 Balance 210 / 776.667 -20 / 756.667 60 / 60 Weight last 48 hrs Weight 115.621 kg Weight 113.262 kg Physical Exam 2 Narrative: awake , alert No distress No edema Data 03/23/23 03:35 03/24/23 05:06 Micro: Microbiology 03/21/23 02:42 Urine Culture - Final Urine,Clean Catch A&P Assessment and plan (1) Acute on chronic kidney failure: 1. Acute on chronic kidney disease stage III: Baseline creatinine in the mid [address] Haro from [place] [facility] as outpatient. Patient presented with creatinine of 2.9 in the setting of hypertensive emergency, now cr worse @ 1.1 - from hemodynamic changes due to fluctuating bP Also recieved contrast on 03/21/23 - renal fxn improving , Lytes and volume status stable , No indication for HD -Continue to monitor renal function, avoid nephrotoxins 2. Hypertensive emergency: Was on metoprolol at home, ? compliance with meds. status post Cardene drip, added nifedipine, hydralazine and , carvedilol 3. Diabetes type 2. 4. nausea Patient evaluated using virtual cart. Time spent 20 minutes. Plan per mediicne Attestations 2 Medical Necessity Statement*: per medicine Coding Level of Care Code Acute Code for Chg Fwd Diagnoses Acute on chronic kidney failure N17.9; N18.9
[2023-03-24 11:58] LABS: Glucose Point of Care 135 mg/dL (70-110)
[2023-03-24] MEDS: FUROsemide 20 mg Tablet PO (14:01)
[2023-03-24 16:58] LABS: Glucose Point of Care 127 mg/dL (70-110)
[2023-03-24 22:04] LABS: Glucose Point of Care 282 mg/dL (70-110)
[2023-03-25] VITALS: BP 133/77; PULSE 87; RESP 18; TEMP 37.3; O2SAT 96
[2023-03-25] MEDS: heparin 5,000 unit/mL INJ 1 mL 5000 UNIT SUBCUT ×2 (01:09→08:01)
[2023-03-25 01:19] LABS: Glucose Point of Care 84 mg/dL (70-110)
[2023-03-25 04:00] VITALS: BP 154/77; PULSE 83; RESP 17; TEMP 36.9; O2SAT 95
[2023-03-25 05:57] LABS: Anion Gap 17.3 (5-19); Blood Urea Nitrogen 62 mg/dL (8-23); Carbon Dioxide 22 mmol/L (22-29); Chloride 98 mmol/L (98-107); Glomerular Filtration Rate 15.4 mL/min (90-130); Glucose 206 mg/dL (65-115); Osmolality Calculated 300 mOsm/kg (285-295); Potassium 4.3 mmol/L (3.5-5.1); Sodium 133 mmol/L (136-145)
[2023-03-25 06:00] VITALS: BMI 36.9
[2023-03-25 06:58] LABS: Glucose Point of Care 212 mg/dL (70-110)
[2023-03-25 08:00] VITALS: BP 174/83; PULSE 94; RESP 17; TEMP 36.8; O2SAT 94
[2023-03-25] MEDS: carvedilol 6.25 mg Tablet PO (08:01)
[2023-03-25] MEDS: NIFEdipine ER (24 hr) 30 mg Tablet 60 MG PO (08:01)
[2023-03-25] MEDS: hyDRALAzine 25 mg Tablet 75 MG PO (08:01)
[2023-03-25] MEDS: sennosides-docusate Tablet 1 TAB PO (08:01)
[2023-03-25] MEDS: insulin glargine 100 units/1 mL 30 UNIT SUBCUT (08:01)
[2023-03-25] MEDS: insulin lispro 100 unit/1 mL SUBCUT (08:01)
--- NOTE | 2023-03-25 09:31 | P.DS_ITS ---
Discharge Providers Date of Admission: 03/21/23 06:31 Date of Discharge: March 25, 2023 Attending Provider at Admission: Brittny Brenner MD Attending Provider at Discharge: Woodrow Metzger MD Primary Care Provider: MARK Kilpatrick Diagnoses at Discharge Discharge Diagnosis (1) Acute on chronic kidney failure: Status: Acute Reason for Visit Reason for Visit: stomach pain Hospital Course Hospital Course 4-year-old male with history of insulin-dependent diabetes, below-knee amputation, presented with chief complaint of migraine, headache, hypertensive crisis, he was put on Cardene drip, nephrology was consulted for worsening of creatinine, please note patient received contrast on admission he suffered from contrast-induced nephropathy. Creatinine peaked at 5.1, it is trending down at the time of discharge is 4, patient has chronic kidney disease stage III which is progressing towards stage IV, for his antihypertensive regimen we have chosen safest option considering his chronic kidney disease and his blood pressure has been responding to nifedipine, metoprolol, hydralazine and as needed Lasix combination Patient will get Dr. Haro outpatient nephrology follow-up. He does have gastroparesis experience cyclical vomiting sometimes but during this hospitalization no such events. MRV was requested to rule out cerebral venous thrombosis because he had right upper molar dental caries and I was concerned about infectious thrombosis of cerebral veins, MRV was unremarkable. Patient is stating that after 1 episode of vomiting his headache improved. Physical Exam Narrative: Awake and alert GCS 15 Pleasant Adequate urine output at the time of discharge S1, S2 Currently on room Discharge Data Studies Completed and Pending Completed Studies During Hospitalization Category Date Time Status CT abdomen pelvis w con* [id number] Stat Cat Scan 03/21/23 02:[address] head wo con* [id number] Stat Cat Scan 03/21/23 02:46 Completed MR[place] [[place] [id number]] Routine MRI 03/22/23 11:29 Completed Radiology Impressions Abdomen/Pelvis CT 03/21/23 02:44 IMPRESSION: 1. Subtle area of possible pyelonephritis involving the right kidney, see above discussion. 2. No free air or significant bowel distention. No evidence for bowel obstruction. 3. No current evidence for acute pancreatitis, see above discussion. 4. Normal appendix. 5. No diverticulitis. 6. Other findings discussed above. Head CT 03/21/23 02:46 IMPRESSION: Negative for acute intracranial pathology. Laboratory Results WBC 9.43 10^3/uL (3.29-11.43) 03/23/23 03:35 RBC 4.57 10^6/uL (3.85-5.65) 03/23/23 03:35 Hgb 12.60 g/dL (11.27-16.99) 03/23/23 03:35 Hct 38.7 % (37-53) 03/23/23 03:35 MCV 84.7 fl (82-101) 03/23/23 03:35 MCH 27.6 pg (27-33) 03/23/23 03:35 MCHC 32.6 g/dL (30-55) 03/23/23 03:35 RDW 13.1 % (12.1-15.1) 03/23/23 03:35 Plt Count 282 10^3/cmm (157-399) 03/23/23 03:35 MPV 9.8 fL (7.4-10.4) 03/23/23 03:35 Neut % (Auto) 74.6 % 03/23/23 03:35 Lymph % (Auto) 18.2 % 03/23/23 03:35 [place] % (Auto) 6.4 % 03/23/23 03:35 Eos % (Auto) 0.3 % 03/23/23 03:35 Baso % (Auto) 0.1 % 03/23/23 03:35 Neut # (Auto) 7.03 10^3/uL (1.8-7.7) 03/23/23 03:35 Lymph # (Auto) 1.7 10^3/uL (0.8-4.8) 03/23/23 03:35 [place] # (Auto) 0.6 10^3/uL (0.2-0.9) 03/23/23 03:35 Eos # (Auto) 0.0 10^3/uL (0.0-0.8) 03/23/23 03:35 Baso # (Auto) 0.0 10^3/uL (0.0-0.1) 03/23/23 03:35 Nucleated RBC % (auto) 0 % 03/23/23 03:35 Nucleated RBCs # 0.0 /100WBC 03/23/23 03:35 PT 11.80 SECONDS (12.1-14.9) L 03/21/23 02:42 INR 0.84 (0.8-1.2) 03/21/23 02:42 Sodium 133 mmol/L (136-145) L 03/25/23 05:16 Potassium 4.3 mmol/L (3.5-5.1) 03/25/23 05:16 Chloride 98 mmol/L (98-107) 03/25/23 05:16 Carbon Dioxide 22 mmol/L (22-29) 03/25/23 05:16 Anion Gap 17.3 (5-19) 03/25/23 05:16 BUN 62 mg/dL (8-23) H 03/25/23 05:16 Creatinine 4.0 mg/dL (0.7-1.2) H 03/25/23 05:16 GFR Calculation 15.4 mL/min (90-130) L 03/25/23 05:16 Glucose 206 mg/dL (65-115) H 03/25/23 05:16 POC Glucose 212 mg/dL (70-110) H 03/25/23 06:50 Estimat Average Glucose 249 03/21/23 10:20 Hemoglobin A1c 10.3 % (4.0-6.0) H 03/21/23 10:20 Calculated Osmolality 300 mOsm/kg (285-295) H 03/25/23 05:16 Lactic Acid 2.2 mmol/L (0.5-2.2) 03/21/23 02:42 Lactic Acid (Sepsis) 3.2 mmol/L (0.5-2.2) H 03/21/23 05:38 Calcium 9.0 mg/dL (8.5-10.5) 03/25/23 05:16 Magnesium 2.4 mg/dL (1.7-2.3) H 03/22/23 03:46 Total Bilirubin 0.2 mg/dL (0.15-1.2) 03/21/23 02:42 AST 13 U/L (0-40) 03/21/23 02:42 ALT 14 U/L (0-41) 03/21/23 02:42 Alkaline Phosphatase 90 U/L (40-130) 03/21/23 02:42 Troponin T Baseline 33 ng/L (0-15) H 03/21/23 07:00 Troponin T 120 Minute 40.05 ng/L (0-15) H 03/21/23 10:20 Delta Troponin T 7.05 ABS# (0-10) 03/21/23 10:20 Troponin T Hi Sens 6Hr 44.97 ng/L (0-15) H 03/21/23 13:51 Troponin T Hi Sens 6Hr Delta 11.97 ng/L (0-12) 03/21/23 13:51 C-Reactive Protein 13.0 mg/L (0.0-4.9) H 03/21/23 02:42 Total Protein 7.8 g/dL (6.6-8.7) 03/21/23 02:42 Albumin 4.1 g/dL (3.5-5.2) 03/21/23 02:42 Globulin 3.7 g/dL (1.3-4.6) 03/21/23 02:42 Lipase 39 U/L (13-60) 03/21/23 02:42 TSH 2.51 uIU/mL (0.27-4.20) 03/21/23 10:20 Urine Color Yellow (Yellow) 03/21/23 02:42 Urine Appearance Hazy (CLEAR) A 03/21/23 02:42 Urine pH 7 (5-7) 03/21/23 02:42 Ur Specific [place] 1.010 (1.005-1.030) 03/21/23 02:42 Urine Protein 3+ (Negative) H 03/21/23 02:42 Urine Glucose (UA) 4+ (Normal) H 03/21/23 02:42 Urine Ketones Negative (Negative) 03/21/23 02:42 Urine Blood 2+ (Negative) H 03/21/23 02:42 Urine Nitrate Negative (Negative) 03/21/23 02:42 Urine Bilirubin Neg (Negative) 03/21/23 02:42 Urine Urobilinogen Norm mg/dL (Negative) 03/21/23 02:42 Ur Leukocyte Esterase Negative (Negative) 03/21/23 02:42 Urine RBC 50-80 /hpf (0-2) H 03/21/23 02:42 Urine WBC 15-25 /hpf (0-5) H 03/21/23 02:42 Ur Squamous Epith Cells 0-4 /hpf (0-5) H 03/21/23 02:42 Amorphous Sediment Not Reportable 03/21/23 02:42 Urine Bacteria Trace /hpf (NONE) 03/21/23 02:42 Influenza Type A Ag Negative (Negative) 03/21/23 04:47 Influenza Type B Ag Negative (Negative) 03/21/23 04:47 SARS-CoV-2 Ag (Rapid) negative (Negative) 03/21/23 04:47 Vitals Last Vital Signs Temp 98.2 F 03/25/23 08:00 Pulse 94 03/25/23 08:00 Resp 17 03/25/23 08:00 BP 174/83 03/25/23 08:00 Pulse Ox 94 03/25/23 08:00 O2 Del Method Room Air 03/25/23 08:00 Discharge Plan Discharge Patient Disposition: Home Condition: Stable Prescriptions: New nifedipine 30 mg Tablet Extended Release 24hr 60 mg PO DAILY Qty: 90 3RF hydralazine 25 mg Tablet 75 mg PO TID Qty: 90 3RF carvedilol 6.25 mg Tablet 6.25 mg PO BID Qty: 60 3RF Continued (DME) prosthetic supplies See Rx Instructions .Route .MEDSUPPLY Qty: 1 0RF Rx Instructions: As directed insulin lispro 100 unit/mL insulin pen See Rx Instructions .ROUTE .COMPLEX Qty: 15 1RF Dose Instruction: INJECT THREE TO 24 UNITS SUBCUTANEOUSLY PER sliding scale. needs A1C Rx Instructions: INJECT THREE TO 24 UNITS SUBCUTANEOUSLY PER sliding scale. needs A1C (DME) FreeStyle Julius 2 Sensor Kit See Rx Instructions .ROUTE .COMPLEX Qty: 2 0RF Dose Instruction: APPLY 1 SENSOR AND CHANGE EVERY 14 DAYS Rx Instructions: APPLY 1 SENSOR AND CHANGE EVERY 14 DAYS Levemir FlexPen 100 unit/mL (3 mL) insulin pen See Rx Instructions .ROUTE .COMPLEX Qty: 15 2RF Dose Instruction: inject 24 units SUBCUTANEOUSLY IN THE MORNING AND 20 units IN THE EVENING Rx Instructions: inject 25 units SUBCUTANEOUSLY IN THE MORNING AND 25 units IN THE EVENING Changed metoprolol tartrate 25 mg tablet 25 mg PO BID Qty: 60 0RF Discharge Orders: Discharge Order (Routine); Ordered 03/25/23 Ordered By: Woodrow Metzger Referrals: Sarika Corbin FNP [Primary Care Provider] - Rosa Haro MD [Referring] - 7-10 days Patient Instructions: Hypertensive Crisis (ED), Opioid Safety, Pain Management Discharge Attestations Time Spent in Discharge Care*: greater than 30 min Status at Discharge: Cognitive status at discharge: cognitively intact , Behavioral status at discharge: cooperative , Quality Metrics Clinical Quality Measures [ No reported AMI, CVA or VTE this stay] Coding Level of Care Code Acute Code for Chg Fwd Diagnoses Acute on chronic kidney failure N17.9; N18.9
[2023-03-25 09:49] VITALS: PULSE 81; RESP 16; O2SAT 95
--- NOTE | 2023-03-25 09:50 | P.PN_ITS ---
Subjective 2 Subjective: doing well Medications: Reviewed: Yes Vitals/I&O/Wt Last Vital Signs Temp 98.2 F 03/25/23 08:00 Pulse 81 03/25/23 09:49 Resp 16 03/25/23 09:49 BP 174/83 03/25/23 08:00 Pulse Ox 95 03/25/23 09:49 O2 Del Method Room Air 03/25/23 09:49 03/24/23 03/25/23 03/25/23 22:59 06:59 14:59 Intake Total 240 / 1080 240 / 240 Output Total 1300 / 2350 1200 / 3550 Balance -1060 / -1270 -1200 / -2470 240 / 240 Weight last 48 hrs Weight 113.58 kg Weight 115.621 kg Physical Exam 2 Narrative: awake , alert No distress No edema Data 03/23/23 03:35 03/25/23 05:16 A&P Assessment and plan (1) Acute on chronic kidney failure: 1. Acute on chronic kidney disease stage III: Baseline creatinine in the mid [address] Haro from [place] as outpatient. Patient presented with creatinine of 2.9 in the setting of hypertensive emergency, now cr worse @ 1.1 - from hemodynamic changes due to fluctuating bP Also recieved contrast on 03/21/23 - renal fxn improving , Lytes and volume status stable , -Continue to monitor renal function, avoid nephrotoxins 2. Hypertensive emergency: Was on metoprolol at home, ? compliance with meds. status post Cardene drip, added nifedipine, hydralazine and , carvedilol 3. Diabetes type 2. 4. nausea Patient evaluated using virtual cart. Time spent 20 minutes. Plan per mediicne Attestations 2 Medical Necessity Statement*: per mediicne Coding Level of Care Code Acute Code for Chg Fwd Diagnoses Acute on chronic kidney failure N17.9; N18.9
[2023-03-25 11:17] LABS: Glucose Point of Care 171 mg/dL (70-110)
[2023-03-25 11:41] VITALS: BP 163/72; PULSE 83; RESP 18; TEMP 37; O2SAT 95
[2023-03-25 12:41] VITALS: BP 163/72; PULSE 83; RESP 18; TEMP 37; O2SAT 95
== END 2023-03-25 12:42 | disposition home or self-care (01) | DRG 305 ==
LOC: ER 06:26 → ICU 06:32 → MEDSURG 03-23 16:21
PROVIDERS: Admitting Provider Student in an Organized Health Care Education/Training Program; Emergency Provider Emergency Medicine; PCP Nurse Practitioner Family; Visit Provider Internal Medicine
DX: I16.9 Hypertensive crisis, unspecified (principal); N17.9 Acute kidney failure, unspecified; N12 Tubulo-interstitial nephritis, not specified as acute or chronic; I12.9 Hypertensive chronic kidney disease with stage 1 through stage 4 chronic kidney disease, or unspecified chronic kidney disease; E11.22 Type 2 diabetes mellitus with diabetic chronic kidney disease; E11.65 Type 2 diabetes mellitus with hyperglycemia; N18.30 Chronic kidney disease, stage 3 unspecified; Z79.4 Long term (current) use of insulin; E11.40 Type 2 diabetes mellitus with diabetic neuropathy, unspecified; E78.2 Mixed hyperlipidemia; Z89.512 Acquired absence of left leg below knee; N14.11 Contrast-induced nephropathy; T50.8X5A Adverse effect of diagnostic agents, initial encounter; Y92.239 Unspecified place in hospital as the place of occurrence of the external cause; G43.909 Migraine, unspecified, not intractable, without status migrainosus; R11.2 Nausea with vomiting, unspecified; K02.9 Dental caries, unspecified
CPT/HCPCS: 36415; 36416; 70450; 70544; 74177; 80048; 80053; 81001; 82962; 83036; 83605; 83690; 83735; 84443; 84484; 85025; 85610; 86140; 87086; 87426; 87804; 93005; 96365; 96367; 96372; 96375; 96376; 99285; J1644; J1815; J2270; J2405; J2765; J3490; J7030; Q9967

== ENCOUNTER → 2023-04-01 10:21 | Outpatient (BNVA) | payer OTHER, SELFPAY | PROVIDERS: PCP Nurse Practitioner Family; Visit Provider Nurse Practitioner Family | DX: I12.9 Hypertensive chronic kidney disease with stage 1 through stage 4 chronic kidney disease, or unspecified chronic kidney disease (principal); N18.4 Chronic kidney disease, stage 4 (severe); R53.83 Other fatigue; N39.0 Urinary tract infection, site not specified; E11.9 Type 2 diabetes mellitus without complications | CPT/HCPCS: 80069; 81000; 82310; 83970; 85025; 87086 ==

== ENCOUNTER → 2023-06-25 08:33 | Outpatient (BNVA) | payer OTHER, SELFPAY | PROVIDERS: PCP Nurse Practitioner Family; Visit Provider Nurse Practitioner Family | DX: E11.9 Type 2 diabetes mellitus without complications (principal); E11.65 Type 2 diabetes mellitus with hyperglycemia; I12.9 Hypertensive chronic kidney disease with stage 1 through stage 4 chronic kidney disease, or unspecified chronic kidney disease; N18.4 Chronic kidney disease, stage 4 (severe) | CPT/HCPCS: 80053; 80061; 80069; 82043; 82310; 83036; 83721; 83970; 85007; 85027 ==

== ENCOUNTER 2023-08-27 12:36 | Emergency (ER) | payer OTHER, SELFPAY ==
[2023-08-27] VITALS (10 sets, daily range): BP systolic 156–217; BP diastolic 69–91; PULSE 98–106; RESP 18–28; TEMP 36.6; O2SAT 89–97
--- NOTE | 2023-08-27 12:49 | ECG_ITS ---
[facility] Test Date: 2023-08-27 Pat Name: Martir Kruger Department: Room: Gender: Male Category Manager: : 1965 Requested By: Edmund Taylor Order Number: [id number] Geraldo MD: Rafa Snow M.D. Measurements Intervals Satin Rate: 102 P: 61 FL: 281 QRS: 54 QRSD: 85 T: 17 QT: 393 QTc: 512 Interpretive Statements SINUS TACHYCARDIA WITH FIRST DEGREE AV BLOCK POSSIBLE LEFT ATRIAL ENLARGEMENT [-0.1mV P-WAVE IN V1/V2] NONSPECIFIC T-WAVE ABNORMALITY Compared to ECG 03/21/2023 12:11:27 First degree AV block now present Supraventricular rhythm no longer present T-wave abnormality still present Electronically Signed On 08-27-2023 13:44:46 CDT by Rafa Snow M.D. [email or web address]
--- NOTE | 2023-08-27 13:13 | PC.NURSE ---
PATIENT PLACED ON 2 L NC WHEN ROOMED PATIENT WAS 87% ON RA. PATIENT DOES NOT NORMALLY WEAR O2.
--- NOTE | 2023-08-27 13:20 | XR_ITS ---
WS: [id number] Exam: XR chest 1V portable [id number] Date/Time of Exam: 08/27/2023 1:34 PM Reason For Exam: dyspnea Comparison 10/03/2021. The lungs are clear and fully inflated. Normal cardiomediastinal silhouette. No pleural effusions. Ca lcified perihilar granulomas. Unremarkable bony structures. XR/XR chest 1V portable [id number] IMPRESSION: 1. No acute cardiopulmonary finding.
--- NOTE | 2023-08-27 13:22 | CTR_ITS ---
PROCEDURE INFORMATION: Exam: CT Chest Without Contrast; Diagnostic Exam date and time: 08/27/2023 3:13 PM Age: 58 years old Clinical indication: Other: Low o2 TECHNIQUE: Imaging protocol: Diagnostic computed tomography of the chest without contrast. Radiation optimization: All CT scans at this facility use at least one of these dose optimization techniques: automated exposure control; mA and/or kV adjustment per patient size (includes targeted exams where dose is matched to clinical indication); or iterative reconstruction. COMPARISON: CT angio chest PE protcl [id number] 09/21/2020 1:57 PM RADIATION DOSE METRICS: Total DLP (mGy-cm): 741.81 FINDINGS: Lungs: There are pulmonary parenchymal calcifications consistent with remote granulomatous organism exposure. Multifocal scattered bilateral pulmonary ground-glass opacities. Pleural spaces: Small to moderate bilateral pleural effusions with adjacent compressive atelectasis or pneumonia. Heart: Unremarkable. No cardiomegaly. No pericardial effusion. Coronary arteries: Multivessel atherosclerotic disease which involves the coronary arteries. Lymph nodes: There are calcified mediastinal and perihilar lymph nodes consistent with prior granulomatous exposure. Vasculature: Unremarkable. No aortic aneurysm. Bones/joints: Unremarkable. No acute fracture. Soft tissues: Unremarkable. CT/CT chest [facility] [id number] IMPRESSION: 1. Small to moderate bilateral pleural effusions with adjacent compressive atelectasis or pneumonia. 2. Multifocal bilateral pulmonary ground-glass opacities are nonspecific and can be seen with pulmonary edema and/or pneumonia.
--- NOTE | 2023-08-27 13:22 | PC.NURSE ---
Pt on bedside pvc monitor
[2023-08-27] MEDS: magnesium sulfate premix 2 GM/50 ML PIGGYBACK IV (13:34)
[2023-08-27] MEDS: methylPREDNISolone sod succ 125 mg/2 mL INJ IV (13:34)
--- NOTE | 2023-08-27 13:34 | ED_ITS ---
HPI - SOB/Dyspnea 2 General: Chief Complaint: Shortness of Breath/Dyspnea Stated Complaint: sob, left eye swollen Time Seen by Provider: 08/27/23 13:12 History of Present Illness: HPI Narrative: 58-year-old male presents emergency depa rtment chief complaint of progressive shortness of breath and difficulty breathing patient was out on Wednesday mowing his grass which she did but developed moderate chest discomfort and shortness of breath since that time patient does have a standing history of grade 3 kidney disease he does not endorse any recent swelling or water weight gain patient denies any obvious underlying heart issues in himself patient does report some mild chest pressure with the shortness of breath which she cannot get his air when she gets dyspneic on exertion. Patient does have a prior history of below- knee amputation on the left. Patient does also have a known history of high blood pressure that he has been taking his medications for. The patient does not recall any recent medication changes or having a productive cough with his shortness of breath patient presents to the ER for further assessment and management. Associated symptoms: Deny abdominal pain, chest pain, extremity pain, fever(s), nausea, palpitations or vomiting Review of Systems 2 General: Reports: 10 or more systems reviewed and unremarkable except in HPI and below Const: Denies: fever(s), chills, fatigue or malaise Eyes: Denies: change in vision or blurry vision Card: Denies: chest pain or palpitations Resp: Reports: dyspnea, non-productive cough, wheezing and other (Diminished breath sounds appreciated bilaterally. With mild scant expirato); Denies: productive cough GI: Denies: abdominal pain, nausea or vomiting : Denies: flank pain Musc: Denies: extremity pain or extremity swelling Skin/Breast: Denies: rash or pruritus Neuro: Denies: headache(s) Psych: Denies: anxiety or depression David/Lymph: Denies: easy bleeding All/Imm: Denies: urticaria, throat swelling or facial swelling PFSH ED 2 PFSH: Medical History Hypertension Diabetes type 2, uncontrolled Contrast-induced nephropathy Hypertensive crisis Need for dental care Migraine Intractable vomiting Acute on chronic kidney failure Hypertensive urgency Hyperosmolar hyperglycemic state (HHS) DKA (diabetic ketoacidosis) Prosthesis fitting Hypokalemia Hypertensive urgency Microscopic hematuria Nausea and vomiting Diabetes mellitus with gastroparesis Osteomyelitis Contrast dye induced nephropathy Acute renal failure superimposed on stage 3b chronic kidney disease Peripheral arterial disease Acquired rearfoot varus Diabetic peripheral neuropathy associated with type 2 diabetes mellitus 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 Chronic renal impairment Hyperlipidemia associated with type 2 diabetes mellitus Statin intolerance Foot abscess, left Diabetic foot infection Essential hypertension Hyperlipidemia, mixed Surgical History S/P hemodialysis catheter insertion S/P BKA (below knee amputation) (04/05/21) History of partial amputation of toe of right foot History of amputation of lesser toe Amputated toe of right foot secondary to osteomyelitis 4th right toe Family History Father Diabetes Mother Diabetes Other Hypertension Social History Smoking and tobacco/nicotine status: never used tobacco/nicotine Second hand smoke exposure: No Alcohol intake: former Substance/Drug Use: never Adopted: No Caregiver/support person: No Lives independently: Yes Household members: spouse Housing: House Marital status: service: No Current occupational status: employed Pets and animals: Yes Do you think of yourself as: Straight/Heterosexual Current gender identity: Male Physical Exam 2 Const: COMMON NORMALS: no acute distress, patient oriented x3 and healthy appearing HENMT: COMMON NORMALS: normocephalic and atraumatic HEAD & SCALP: n ormocephalic and atraumatic Eye: COMMON NORMALS: Equal, round and reactive pupils present and EOMs intact bilaterally PUPIL: Yes Equal, round and reactive pupils present Neck/C-Spine: COMMON NORMALS: full ROM, supple and no JVD Lymph: LYMPHATIC: no lymphadenopathy noted Chest: COMMONS NORMALS: normal inspection of the chest and normal palpation of entire chest wall Resp: COMMON NORMALS: No retractions and clear to auscultation bilaterally; negative for normal respiratory effort (Diminished breath sounds appreciated bilaterally with mild respiratory spli) EFFORT & INSPECTION: Yes able to speak in complete sentences and Yes symmetric chest movement AUSCULTATION: c lear to auscultation bilaterally Cardio: COMMON NORMALS: no JVD, regular rate and regular rhythm RATE: r egular rate RHYTHM: regular rhythm GI: COMMON NORMALS: Normal to inspection, nondistended, normoactive bowel sounds present, Soft to palpation and non-tender INSPECTION: Yes normal to inspection PALPATION: Yes Soft to palpation : COMMON NORMALS: Yes no CVA tenderness BLADDER/KIDNEY EXAM: Yes no CVA tenderness Back/Pelvis: COMMON NORMALS: no CVA tenderness Extremity: COMMON NORMALS: negative for normal to inspection, negative for full ROM and negative for no clubbing, cyanosis or edema (Left BKA appreciated mild 2+ pitting edema appreciated in the right leg) Neuro: COMMON NORMALS: patient oriented x3, CN's II-XII intact bilaterally, moves all extremities and no focal motor deficits Psych: COMMON NORMALS: mental status grossly normal, Normal thought process present, cooperative and normal affect THOUGHT PROCESS: Normal thought process present Skin: COMMON NORMALS: no rashes or lesions noted GENERAL SKIN EXAM: no rashes or lesions noted Course 2 Vital Signs: Vital signs: Vital Signs Temperature 97.9 F 08/27/23 12:45 Pulse Rate 105 H 08/27/23 16:54 Respiratory Rate 18 08/27/23 16:54 Blood Pressure 156/88 08/27/23 15:30 Pulse Oximetry 95 08/27/23 16:54 Oxygen Delivery Me thod Nasal Cannula 08/27/23 16:54 Oxygen Flow Rate 2 08/27/23 14:00 MDM - SOB/Dyspnea Medical Decision Making Due to patient's symptoms and condition IV was established lab work imaging obtained underlying concerns due to patient's tachycardia and elevated respiratory rate with low O2 sats concerns of pulmonary embolism versus others prominent or flash pulmonary edema or acute on chronic renal impairment we will continue to follow.\ Patient. He is mildly fluid overloaded his creatinine is slightly worse than normal and as well as retaining some fluids we will provide the patient is a dose of Lasix while in emergency department. On top of this with the patient may have a mild case of acute bronchitis we will be treating him accordingly. Advised further follow-up with primary care in 2 to 3 days patient was able to walk he is currently off of oxygen not requiring any supplemental oxygen or any other concerns patient reports no current chest pain or palpitations. Patient is stable for discharge home did advise he continue on his current medication regimen for his high blood pressure which I believe is contributing to his hypertension and cardiomyopathy. Patient was advised return the interim if any of his symptoms persist or worse. Lab Data 08/27/23 13:26 08/27/23 13:26 Labs/Radiology: Radiology Impressions Chest X-Ray 08/27/23 13:20 IMPRESSION: 1. No acute cardiopulmonary finding. Chest CT 08/27/23 13:22 IMPRESSION: 1. Small to moderate bilateral pleural effusions with adjacent compressive atelectasis or pneumonia. 2. Multifocal bilateral pulmonary ground-glass opacities are nonspecific and can be seen with pulmonary edema and/or pneumonia. Laboratory Results WBC 11.18 10^3/uL (3.29-11.43) 08/27/23 13:26 RBC 3.89 10^6/uL (3.85-5.65) 08/27/23 13:26 Hgb 10.80 g/dL (11.27-16.99) L 08/27/23 13:26 Hct 32.7 % (37-53) L 08/27/23 13:26 MCV 84.1 fl (82-101) 08/27/23 13:26 MCH 27.8 pg (27-33) 08/27/23 13:26 MCHC 33.0 g/dL (30-55) 08/27/23 13:26 RDW 13.6 % (12.1-15.1) 08/27/23 13:26 Plt Count 276 10^3/cmm (157-399) 08/27/23 13:26 MPV 9.4 fL (7.4-10.4) 08/27/23 13:26 Neut % (Auto) 75.5 % 08/27/23 13:26 Lymph % (Auto) 12.2 % 08/27/23 13:26 [place]bot % (Auto) 11.2 % 08/27/23 13:26 Eos % (Auto) 0.3 % 08/27/23 13:26 Baso % (Auto) 0.4 % 08/27/23 13:26 Neut # (Auto) 8.45 10^3/uL (1.8-7.7) H 08/27/23 13:26 Lymph # (Auto) 1.4 10^3/uL (0.8-4.8) 08/27/23 13:26 [place]bot # (Auto) 1.3 10^3/uL (0.2-0.9) H 08/27/23 13:26 Eos # (Auto) 0.0 10^3/uL (0.0-0.8) 08/27/23 13:26 Baso # (Auto) 0.0 10^3/uL (0.0-0.1) 08/27/23 13:26 Nucleated RBC % (auto) 0 % 08/27/23 13:26 Nucleated RBCs # 0.0 /100WBC 08/27/23 13:26 PT 13.80 SECONDS (12.1-14.9) 08/27/23 13:26 INR 1.03 (0.8-1.2) 08/27/23 13:26 Sodium 130 mmol/L (136-145) L 08/27/23 13:26 Potassium 4.4 mmol/L (3.5-5.1) 08/27/23 13:26 Chloride 95 mmol/L (98-107) L 08/27/23 13:26 Carbon Dioxide 22 mmol/L (22-29) 08/27/23 13:26 Anion Gap 17.4 (5-19) 08/27/23 13:26 BUN 44 mg/dL (8-23) H 08/27/23 13:26 Creatinine 3.7 mg/dL (0.7-1.2) H 08/27/23 13:26 GFR Calculation 16.8 mL/min (90-130) L 08/27/23 13:26 Glucose 113 mg/dL (65-115) 08/27/23 13:26 Calculated Osmolality 282 mOsm/kg (285-295) L 08/27/23 13:26 Calcium 8.7 mg/dL (8.5-10.5) 08/27/23 13:26 Total Bilirubin 0.5 mg/dL (0.15-1.2) 08/27/23 13:26 AST 16 U/L (0-40) 08/27/23 13:26 ALT 15 U/L (0-41) 08/27/23 13:26 Alkaline Phosphatase 75 U/L (40-130) 08/27/23 13:26 Troponin T Baseline 68 ng/L (0-15) H 08/27/23 13:26 NT-Pro-B Natriuret Pep 2959 pg/mL (0-125) H 08/27/23 13:26 Total Protein 7.0 g/dL (6.6-8.7) 08/27/23 13:26 Albumin 3.7 g/dL (3.5-5.2) 08/27/23 13:26 Globulin 3.3 g/dL (1.3-4.6) 08/27/23 13:26 All radiology interpretation(s) finalized by discharge Discharge Plan Discharge Patient Disposition: Home Clinical Impression: Small pleural effusion Acute bronchitis Qualifiers: Bronchitis organism: unspecified organism Qualified Code(s): J20.9 - Acute bronchitis, unspecified Fluid overload Qualifiers: Hypervolemia type: unspecified Qualified Code(s): E87.70 - Fluid overload, unspecified Condition: Stable Prescriptions: New furosemide [Lasix] 40 mg tablet 40 mg PO DAILY Qty: 5 0RF albuterol sulfate [Ventolin HFA] 90 mcg/actuation HFA aerosol inhaler 1 inh inhalation Q6H PRN (Reason: shortness of breath or wheezing) Qty: 8.5 0RF azithromycin 250 mg tablet See Rx Instructions .ROUTE .COMPLEX Qty: 6 0RF Rx Instructions: For 250 mg dose pack: take 500 mg today (day 1), then 250 mg for 4 days (days 2-5) prednisone 20 mg tablet 20 mg PO BID 7 Days Qty: 14 0RF No Action (DME) prosthetic supplies See Rx Instructions .Route .MEDSUPPLY Qty: 1 0RF Rx Instructions: As directed metoprolol tartrate 25 mg tablet 25 mg PO BID Qty: 180 1RF hydralazine 25 mg tablet 25 mg PO BID Qty: 180 1RF (DME) prosthetic leg sleeve See Rx Instructions .Route .MEDSUPPLY Qty: 2 2RF Rx Instructions: As directed Humulin R U-500 (Conc) Kwikpen 500 unit/mL (3 mL) insulin pen See Rx Instructions .ROUTE .COMPLEX Qty: 6 0RF Dose Instruction: ADMINISTER 24 UNITS UNDER THE SKIN THREE TIMES DAILY PER SLIDING SCALE Rx Instructions: ADMINISTER 24 UNITS UNDER THE SKIN THREE TIMES DAILY PER SLIDING SCALE atorvastatin 10 mg tablet See Rx Instructions .ROUTE .COMPLEX Qty: 90 0RF Dose Instruction: TAKE 1 TABLET BY MOUTH DAILY Rx Instructions: TAKE 1 TABLET BY MOUTH DAILY (DME) FreeStyle Julius 2 Sensor Kit See Rx Instructions .ROUTE .COMPLEX Qty: 2 0RF Dose Instruction: APPLY 1 SENSOR AND CHANGE EVERY 14 DAYS Rx Instructions: APPLY 1 SENSOR AND CHANGE EVERY 14 DAYS nifedipine 30 mg Tablet Extended Release 24hr 60 mg PO DAILY Qty: 90 3RF Levemir FlexPen 100 unit/mL (3 mL) insulin pen See Rx Instructions .ROUTE .COMPLEX Qty: 15 2RF Dose Instruction: inject 24 units SUBCUTANEOUSLY IN THE MORNING AND 20 units IN THE EVENING Rx Instructions: inject 25 units SUBCUTANEOUSLY IN THE MORNING AND 25 units IN THE EVENING Discharge Orders: Discharge ED (Routine); Ordered 08/27/23 Ordered By: Brian Jenkins Referrals: Sarika Corbin FNP [Primary Care Provider] - 1-3 days Discharge Diet: Cardiac, Diabetic and Low Salt Discharge Activity: Increase activity as tolerated Patient Instructions: Acute Bronchitis (ED), Chronic Hypertension (ED), Hypertensive Crisis (ED), Pain Management Activity Restrictions/Additional Instructions: Please further follow-up your primary care doctor in 2 to 3 days, please take medications as prescribed it is recommended for you to go on a lower salt kidney protective type diet please return in the interim if any of your symptoms persist or worse. Coding Level of Care Code ED Supply Aide for Paula Ho
[2023-08-27 13:41] LABS: Basophils % 0.4 %; Eosinophils % 0.3 %; Hematocrit 32.7 % (37-53); Lymphocytes # 1.4 10^3/uL (0.8-4.8); Lymphocytes % 12.2 %; Mean Corpuscular Hemoglobin 27.8 pg (27-33); Mean Corpuscular Volume 84.1 fl (82-101); Mean Platelet Volume 9.4 fL (7.4-10.4); Monocytes # 1.3 10^3/uL (0.2-0.9); Monocytes % 11.2 %; Neutrophils # 8.45 10^3/uL (1.8-7.7); Neutrophils % 75.5 %; Nucleated Red Blood Cells % 0 %; Platelet Count 276 10^3/cmm (157-399); Red Blood Count 3.89 10^6/uL (3.85-5.65); Red Cell Distribution Width 13.6 % (12.1-15.1); White Blood Count 11.18 10^3/uL (3.29-11.43)
[2023-08-27] MEDS: ipratropium-albuterol 3 mL Neb INHALATION (13:42)
[2023-08-27 13:57] LABS: INR 1.03 (0.8-1.2)
[2023-08-27 14:05] LABS: Troponin(5th) Baseline 68 ng/L (0-15)
[2023-08-27 14:12] LABS: Alanine Aminotransferase 15 U/L (0-41); Albumin Level 3.7 g/dL (3.5-5.2); Alkaline Phosphatase 75 U/L (40-130); Anion Gap 17.4 (5-19); Aspartate Amino Transferase 16 U/L (0-40); Blood Urea Nitrogen 44 mg/dL (8-23); Calcium 8.7 mg/dL (8.5-10.5); Carbon Dioxide 22 mmol/L (22-29); Chloride 95 mmol/L (98-107); Creatinine Clr Calc Pharmacy 27.4498; Globulin 3.3 g/dL (1.3-4.6); Glomerular Filtration Rate 16.8 mL/min (90-130); Glucose 113 mg/dL (65-115); NT Pro B Type Natriuretic Pept 2959 pg/mL (0-125); Osmolality Calculated 282 mOsm/kg (285-295); Potassium 4.4 mmol/L (3.5-5.1); Sodium 130 mmol/L (136-145); Total Bilirubin 0.5 mg/dL (0.15-1.2)
--- NOTE | 2023-08-27 14:21 | ECG_ITS ---
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 Measurements Intervals [place] Rate: 106 P: 239 OK: 236 QRS: 48 QRSD: 90 T: 59 QT: 378 QTc: 502 Interpretive Statements ECTOPIC ATRIAL TACHYCARDIA WITH FIRST DEGREE AV BLOCK Compared to ECG 08/27/2023 12:39:29 Sinus tachycardia no longer present T-wave abnormality no longer present Electronically Signed On 08-28-2023 8:09:28 CDT by Rafa Snow M.D. [id number]
--- NOTE | 2023-08-27 14:35 | PC.NURSE ---
Pt states he is feeling better, breathing easier, able to lay back and rest in bed. Denies needs or complaints at this time
[2023-08-27] MEDS: FUROsemide 10 mg/mL SDV 10mL 60 MG IVP (15:24)
--- NOTE | 2023-08-27 17:40 | PC.NURSE ---
Pt ambulated around nurse's station on room air, Spo2 90% while ambulating. Provider aware
== END 2023-08-27 18:09 | disposition home or self-care (01) ==
PROVIDERS: Emergency Provider Emergency Medicine; PCP Nurse Practitioner Family
DX: J90 Pleural effusion, not elsewhere classified (principal); J20.9 Acute bronchitis, unspecified; E87.70 Fluid overload, unspecified; Z79.4 Long term (current) use of insulin; E11.22 Type 2 diabetes mellitus with diabetic chronic kidney disease; I12.9 Hypertensive chronic kidney disease with stage 1 through stage 4 chronic kidney disease, or unspecified chronic kidney disease; N18.32 Chronic kidney disease, stage 3b; E78.2 Mixed hyperlipidemia
CPT/HCPCS: 36415; 71045; 71250; 80053; 83880; 84484; 85025; 85610; 93005; 94640; 96365; 96375; 99285; J1940; J2919; J3475

== ENCOUNTER 2023-08-28 19:10 | Inpatient (IN) | payer OTHER, SELFPAY ==
[2023-08-28] VITALS (16 sets, daily range): BP systolic 165–199; BP diastolic 75–88; PULSE 93–101; RESP 19–26; TEMP 36.6; O2SAT 89–95; BMI 39.1
--- NOTE | 2023-08-28 19:27 | ECG_ITS ---
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 Measurements Intervals [place] Rate: 94 P: 66 CO: 300 QRS: 61 QRSD: 80 T: 66 QT: 335 QTc: 420 Interpretive Statements SINUS RHYTHM WITH FIRST DEGREE AV BLOCK NONSPECIFIC ST & T-WAVE ABNORMALITY Compared to ECG 08/27/2023 14:21:17 T-wave abnormality now present Electronically Signed On 08-29-2023 9:55:22 CDT by Rafa Snow M.D. [id number]
--- NOTE | 2023-08-28 20:21 | XRR_ITS ---
PROCEDURE INFORMATION: Exam: XR Chest Exam date and time: 08/28/2023 8:50 PM Age: 58 years old Clinical indication: Shortness of breath; Patient HX: SOB; Fluid retention TECHNIQUE: Imaging protocol: Radiologic exam of the chest. Views: 1 view. COMPARISON: CT chest con [id number] 08/27/2023 3:13 PM FINDINGS: Lungs: Interstitial prominence likely representing pulmonary edema in the setting of shortness of breath and fluid retention. Pleural spaces: No pneumothorax. Heart/Mediastinum: Heart size is within normal limits. Calcified mediastinal lymph nodes. Bones/joints: No acute osseous abnormalities are seen. Other findings: Possible trace effusions. XR/XR chest 1V portable [id number] IMPRESSION: Interstitial prominence likely representing pulmonary edema in the setting of shortness of breath and fluid retention. Possible trace effusions.
[2023-08-28 20:54] LABS: Basophils % 0.1 %; Hematocrit 31.1 % (37-53); Lymphocytes # 0.6 10^3/uL (0.8-4.8); Lymphocytes % 4.1 %; Mean Corpuscular HGB Conc 33.1 g/dL (30-55); Mean Corpuscular Hemoglobin 27.5 pg (27-33); Mean Corpuscular Volume 82.9 fl (82-101); Mean Platelet Volume 9.5 fL (7.4-10.4); Monocytes # 0.8 10^3/uL (0.2-0.9); Monocytes % 5.8 %; Neutrophils % 89.2 %; Nucleated Red Blood Cells % 0 %; Platelet Count 292 10^3/cmm (157-399); Red Blood Count 3.75 10^6/uL (3.85-5.65); Red Cell Distribution Width 13.2 % (12.1-15.1)
[2023-08-28 21:13] LABS: Troponin(5th) Baseline 66 ng/L (0-15)
[2023-08-28 21:19] LABS: Anion Gap 22.3 (5-19); Blood Urea Nitrogen 70 mg/dL (8-23); Calcium 7.8 mg/dL (8.5-10.5); Carbon Dioxide 17 mmol/L (22-29); Chloride 91 mmol/L (98-107); Creatinine Clr Calc Pharmacy 22.3459; Glomerular Filtration Rate 13.4 mL/min (90-130); Glucose 332 mg/dL (65-115); Osmolality Calculated 293 mOsm/kg (285-295); Potassium 5.3 mmol/L (3.5-5.1); Sodium 125 mmol/L (136-145)
[2023-08-28] MEDS: FUROsemide 10 mg/mL SDV 10mL 60 MG IVP (23:11)
[2023-08-28] MEDS: sodium bicarbonate 8.4% 1 mEq/mL 50mL Syr 50 MEQ IVP (23:12)
[2023-08-28] MEDS: nitroglycerin 1 gm/inch oint Pkt 2 INCH TOPICAL (23:12)
[2023-08-28] MEDS: ipratropium-albuterol 3 mL Neb INHALATION (23:22)
[2023-08-28 23:36] LABS: Lactic Sepsis W/Reflex 1.1 mmol/L (0.5-2.2)
--- NOTE | 2023-08-28 23:41 | ECG_ITS ---
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 Measurements Intervals [place] Rate: 97 P: 83 NV: 282 QRS: 71 QRSD: 85 T: 81 QT: 361 QTc: 460 Interpretive Statements SINUS RHYTHM WITH FIRST DEGREE AV BLOCK POSSIBLE LEFT ATRIAL ENLARGEMENT [-0.1mV P-WAVE IN V1/V2] NONSPECIFIC T-WAVE ABNORMALITY Compared to ECG 08/28/2023 19:27:09 No significant changes Electronically Signed On 08-29-2023 10:01:05 CDT by Rafa Snow M.D. [id number]
[2023-08-28 23:51] LABS: Troponin 5 2HR 73.55 ng/L (0-15); Troponin 5 2HR Delta 7.55 ABS# (0-10)
--- NOTE | 2023-08-28 23:58 | P.HP_ITS ---
Providers/Chief Complaint 2 Admitting Physician: Olga Mueller MD Primary Care Provider: MARK Kilpatrick Chief Complaint: Sob swollen everywhere History of Present Illness Martir Kruger is a 58 year old male with PMH of Type 2 diabetes , Hypertension, CKD stage 4 who presents for further evaluation of worsening shortness of breath and peripheral edema of about 4 days. He also reports a dry cough. He denies chest pain, fever , chills , abdominal pain, nausea, vomiting or any other symptoms. In the ER, he was noted to have anasarca , worsening kidney function and hyponatremia. Chest x-ray showed pulmonary edema. Review of Systems 2 General: Reports: 10 or more systems reviewed and unremarkable except in HPI and below Const: Denies: fever(s) or chills Eyes: Denies: change in vision or blurry vision ENMT: Denies: throat pain or odynophagia Card: Reports: swelling of feet/ankles and dyspnea on exertion Resp: Reports: dyspnea GI: Denies: abdominal pain, nausea or vomiting : Denies: difficulty urinating Neuro: Denies: headache(s) or numbness in extremities Medications/Allergies Home Medications Medication Instructions Recorded Confirmed Last Taken Type prosthetic supplies #1 ea 09/23/22 06/29/23 Unknown Rx insulin detemir U-100 100 unit/mL See Rx Instructions .Route 03/25/23 06/29/23 Unknown Rx (3 mL) subcutaneous pen (Levemir .COMPLEX #15 mL FlexPen) nifedipine 30 mg tablet,extended 60 mg (2 x 30 mg) PO DAILY #90 tabs 03/25/23 06/29/23 Unknown Rx release 24 hr prosthetic leg sleeve #2 ea 04/26/23 06/29/23 Unknown Rx hydralazine 25 mg tablet 25 mg PO BID #180 tabs 06/29/23 06/29/23 Unknown Rx metoprolol tartrate 25 mg tablet 25 mg PO BID #180 tabs 06/29/23 06/29/23 Unknown Rx insulin regular hum U-500 conc 500 See Rx Instructions .Route 07/21/23 Unknown Rx unit/mL(3 mL) subcut pen (Humulin .COMPLEX #6 mL R U-500 (Conc) Insulin Kwikpen) atorvastatin 10 mg tablet See Rx Instructions .Route 07/26/23 Unknown Rx .COMPLEX #90 tabs flash glucose sensor (FreeStyle #2 ea 08/09/23 Unknown Rx Julius 2 Sensor kit) albuterol sulfate 90 mcg/actuation 1 inh inhalation Q6H PRN shortness 08/27/23 Unknown Rx aerosol inhaler (Ventolin HFA) of breath or wheezing #8.5 grams azithromycin 250 mg tablet See Rx Instructions PO .COMPLEX #6 08/27/23 Unknown Rx tabs furosemide 40 mg tablet (Lasix) 40 mg PO DAILY #5 tabs 08/27/23 Unknown Rx prednisone 20 mg tablet 20 mg PO BID 7 days #14 tabs 08/27/23 Unknown Rx Allergies Allergy/AdvReac Type Severity Reaction Status Date / Time No Known Allergies Allergy Verified 08/28/23 19:38 PFSH Acute 2 PFSH: Medical History Hypertension Diabetes type 2, uncontrolled Contrast-induced nephropathy Hypertensive crisis Need for dental care Migraine Intractable vomiting Acute on chronic kidney failure Hypertensive urgency Hyperosmolar hyperglycemic state (HHS) DKA (diabetic ketoacidosis) Prosthesis fitting Hypokalemia Hypertensive urgency Microscopic hematuria Nausea and vomiting Diabetes mellitus with gastroparesis Osteomyelitis Contrast dye induced nephropathy Acute renal failure superimposed on stage 3b chronic kidney disease Peripheral arterial disease Acquired rearfoot varus Diabetic peripheral neuropathy associated with type 2 diabetes mellitus 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 Chronic renal impairment Hyperlipidemia associated with type 2 diabetes mellitus Statin intolerance Foot abscess, left Diabetic foot infection Essential hypertension Hyperlipidemia, mixed Surgical History S/P hemodialysis catheter insertion S/P BKA (below knee amputation) (04/05/21) History of partial amputation of toe of right foot History of amputation of lesser toe Amputated toe of right foot secondary to osteomyelitis 4th right toe Family History Father Diabetes Mother Diabetes Other Hypertension Social History Smoking and tobacco/nicotine status: never used tobacco/nicotine Second hand smoke exposure: No Alcohol intake: former Substance/Drug Use: never Adopted: No Caregiver/support person: No Lives independently: Yes Household members: spouse Housing: House Marital status: service: No Current occupational status: employed Pets and animals: Yes Do you think of yourself as: Straight/Heterosexual Current gender identity: Male Vitals/I&O/Wt Last Vital Signs Temp 97.8 F 08/28/23 19:26 Pulse 98 08/28/23 23:45 Resp 19 H 08/28/23 23:45 BP 165/81 08/28/23 23:45 Pulse Ox 92 08/28/23 23:45 O2 Del Method Nasal Cannula 08/28/23 23:22 O2 Flow Rate 4 08/28/23 23:22 Weight last 48 hrs Weight 120.202 kg Physical Exam 2 Const: COMMON NORMALS: no acute distress, patient oriented x3 and alert HENMT: COMMON NORMALS: normocephalic, atraumatic, external ears normal, Normal external nose present, moist oral mucous membranes and oropharynx normal HEAD & SCALP: normocephalic and atraumatic NOSE: Normal external nose present E XTERNAL EAR: Yes external ears normal Eye: COMMON NORMALS: Equal, round and reactive pupils present, EOMs intact bilaterally, conjunctivae normal and no scleral icterus CONJUNCTIVA: Yes conjunctivae normal PUPIL: Yes Equal, round and reactive pupils present Neck/C-Spine: COMMON NORMALS: full ROM, no lymphadenopathy and no JVD Chest: COMMONS NORMALS: normal inspection of the chest Resp: OTHER: Diminished breath sound BL , BL crackles, no wheezes Cardio: COMMON NORMALS: no JVD, regular rate, regular rhythm, S1 normal heart sound present and S2 normal heart sound present RATE: regular rate RHYTHM: regular rhythm HEART SOUNDS: S1 normal heart sound present and S2 normal heart sound present GI: PALPATION: Yes Soft to palpation (Soft, mildly distended , non tender , bowel sounds positive ) Extremity: NARRATIVE EXTREMITY EXAM: Left BKA, Right LE - +++ Pitting edema Neuro: COMMON NORMALS: patient oriented x3 SENSORIUM/ORIENTATION: Yes alert OTHER: No gross focal deficits Data 08/29/23 02:26 08/29/23 02:26 A&P Assessment and plan (1) Acute decompensated heart failure: - Patient presents with signs of decompensated heart failure . He has significant peripheral edema - Patient's EF is unknown . He reports that he has no prior diagnosis of heart failure -Start lasix infusion , strict i/o's, daily weights -Check TTE -Consult cardiology as appropriate (2) Acute hypoxic respiratory failure: -In the setting of decompensated heart failure -He is requiring 4l supplemental oxygen, he doesn't require oxygen at baseline -Wean oxygen as tolerated (3) Acute kidney injury superimposed on chronic kidney disease: -Likely cardiorenal etiology -Monitor as patient is receiving diuretics -Avoid nephrotoxic medications -Nephrology consult if no improvement in his kidney function (4) Hyponatremia: -Likely hypervolemic hyponatremia -Ct to monitor , trend Na (5) Hypertension: -Resume antihypertensives Qualifiers: Hypertension type: secondary to other renal disorders Qualified Code(s): I15.1 - Hypertension secondary to other renal disorders (6) Diabetes type 2, uncontrolled: -Glucose checks -he is on levemir outpatient -Will start lantus and lispro sliding scale, adjust dose as appropriate Qualifiers: Glycemic state: with hyperglycemia Qualified Code(s): E11.65 - Type 2 diabetes mellitus with hyperglycemia Plan #Suspected Pneumonia -Chest imaging - GGO -Check procalcitonin -Will give ceftriaxone and azithromycin -Deescalate antibiotics as appropriate Attestations 2 Medical Necessity Statement*: Patient's care will cross 2 midnights Coding Level of Care Code Acute Code for Chg Fwd Diagnoses Acute decompensated heart failure I50.9 Acute hypoxic respiratory failure J96.01 Acute kidney injury superimposed on chronic kidney disease N17.9; N18.9 Hyponatremia E87.1 Hypertension secondary to other renal disorders I15.1 Hypertension type: secondary to other renal disorders Uncontrolled type 2 diabetes mellitus with hyperglycemia E11.65 Glycemic state: with hyperglycemia
[2023-08-29] VITALS (51 sets, daily range): BP systolic 135–188; BP diastolic 59–101; PULSE 75–102; RESP 14–25; TEMP 36.4–37.2; O2SAT 91–96
--- NOTE | 2023-08-29 02:12 | USCV_ITS ---
Martir Kruger Age: 58 Gender: M : 1965 Exam Date: 08/29/2023 09:49 Ordering Phys: Olga Mueller MD Technologist: Nikunj Moran Exam Location: [facility] [place] Indication: heart failure BP: 160 / 69 HR: 88 Rhythm: Sinus Technical Quality: Poor MEASUREMENTS (Male / Female) Normal Values 2D ECHO LV Diastolic Diameter PLAX 5.3 cm 4.2 - 5.9 / 3.9 - 5.3 cm IVS Diastolic Thickness 1.1 cm 0.6 - 1.0 / 0.6 - 0.9 cm IVS Systolic Thickness 1.5 cm LVPW Diastolic Thickness 1.8 cm 0.6 - 1.0 / 0.6 - 0.9 cm LVPW Systolic Thickness 2.1 cm LVOT Diameter 2.1 cm LV Ejection Fraction 2D Teich 63.6 % LV Ejection Fraction MOD 2C 62.3 % LV Ejection Fraction 2C AL 61.8 % LA Diameter 3.4 cm RA Systolic Volume 4C AL 54.9 ml RA Systolic Volume 4C MOD 53.5 ml LA Sys Volume AL 43.4 cm cubed LA Sys Volume Index AL 17.3 cm cubed/m squared Aorta at Sinotubular Diameter 2.0 cm IVC Diameter 2.3 cm M-MODE LA Ao Ratio MM 1.4 AV Cusp Separation MM 1.9 cm DOPPLER AV Peak Velocity 109.0 cm/s LVOT Peak Velocity 104.0 cm/s AV Area Cont Eq vti 3.6 cm squared AV Area Cont Eq pk 3.2 cm squared MV Peak Velocity 158.0 cm/s TR Peak Velocity 290.0 cm/s TR Peak Gradient 33.6 mmHg TR Mean Velocity 234.0 cm/s TR Mean Gradient 23.4 mmHg TR Velocity Time Integral 61.6 cm PV Peak Velocity 113.7 cm/s RV Ejection Time 0.3 s FINDINGS Left Ventricle Normal left ventricular size, systolic function and wall thickness, with no regional wall motion abnormalities. Grade II/IV diastolic dysfunction, moderately elevated filling pressures. Left ventricular ejection fraction is estimated at 60 %. Right Ventricle Normal right ventricular size and systolic function. Right Atrium The right atrium is normal in size. Left Atrium The left atrium is normal in size. Mitral Valve Structurally normal mitral valve. Mild mitral valve regurgitation. Aortic Valve Aortic valve not well visualized. Structurally normal trileaflet aortic valve. No aortic valve regurgitation. No aortic valve stenosis. Tricuspid Valve Structurally normal tricuspid valve. Trace tricuspid valve regurgitation. Pulmonic Valve Pulmonic valve not well visualized. Pericardium Normal pericardium without effusion. Aorta Normal ascending aorta dimension. IVC Inferior vena cava not visualized. CONCLUSIONS Normal left ventricular size, systolic function and wall thickness, with no regional wall motion abnormalities. Grade II/IV diastolic dysfunction, moderately elevated filling pressures. Left ventricular ejection fraction is estimated at 60 %. Structurally normal mitral valve. Mild mitral valve regurgitation. No change from the previous study done October 05, 2021 Dr. Rafa Snow MD (Electronically Signed) Final Date: 29 August 2023 10:43 S
--- NOTE | 2023-08-29 02:21 | ECG_ITS ---
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 Measurements Intervals [place] Rate: 98 P: 68 CT: 271 QRS: 53 QRSD: 89 T: 68 QT: 365 QTc: 467 Interpretive Statements SINUS RHYTHM WITH FIRST DEGREE AV BLOCK POSSIBLE LEFT ATRIAL ENLARGEMENT [-0.1mV P-WAVE IN V1/V2] NONSPECIFIC T-WAVE ABNORMALITY Compared to ECG 08/28/2023 23:41:47 No significant changes Electronically Signed On 08-29-2023 10:01:16 CDT by Rafa Snow M.D. [id number]
[2023-08-29 02:22] LABS: Add Urine Microscopic? YES; Bilirubin Urine Neg (Negative); Blood Urine 2+ (Negative); Glucose Urine UA 1+ (Normal); Ketones Urine Negative (Negative); Leukocyte Esterase Urine Negative (Negative); Nitrate Urine Negative (Negative); Protein Urine 3+ (Negative); Urine Appearance Cloudy (CLEAR); Urine Color Yellow (Yellow); Urobilinogen Urine Neg (Negative); pH Urine 5 (5-7)
[2023-08-29 02:23] LABS: Amorphous Sediment Urine 1+ /hpf; Bacteria Urine 2+ /hpf; Mucus Urine 1+ /hpf; RBC Urine 0-4 /hpf (0-2); Squamous Epithelial Cell Urine 0-4 /hpf (0-5); WBC Urine 0-4 /hpf (0-5)
[2023-08-29 02:24] LABS: Add Urine Culture? Yes; Coarse Granular Casts Urine 0-4 /lpf; Hyaline Casts Urine 0-4 /lpf
[2023-08-29 02:37] LABS: Basophils % 0.1 %; Eosinophils % 0.1 %; Hematocrit 28.4 % (37-53); Lymphocytes # 0.8 10^3/uL (0.8-4.8); Lymphocytes % 6.7 %; Mean Corpuscular HGB Conc 33.5 g/dL (30-55); Mean Corpuscular Hemoglobin 28.1 pg (27-33); Mean Platelet Volume 10.1 fL (7.4-10.4); Monocytes % 8.5 %; Neutrophils % 83.7 %; Nucleated Red Blood Cells % 0 %; Platelet Count 291 10^3/cmm (157-399); Red Blood Count 3.38 10^6/uL (3.85-5.65); Red Cell Distribution Width 13.3 % (12.1-15.1); White Blood Count 12.18 10^3/uL (3.29-11.43)
[2023-08-29 02:55] LABS: Troponin 5 6HR 74.15 ng/L (0-15); Troponin 5 6HR Delta 8.15 ng/L (0-12)
[2023-08-29 02:57] LABS: Anion Gap 19.4 (5-19); Blood Urea Nitrogen 75 mg/dL (8-23); Calcium 7.8 mg/dL (8.5-10.5); Carbon Dioxide 20 mmol/L (22-29); Chloride 93 mmol/L (98-107); Creatinine Clr Calc Pharmacy 21.4869; Glomerular Filtration Rate 12.5 mL/min (90-130); Glucose 299 mg/dL (65-115); Osmolality Calculated 299 mOsm/kg (285-295); Potassium 4.4 mmol/L (3.5-5.1); Sodium 128 mmol/L (136-145)
[2023-08-29] MEDS: heparin 5,000 unit/mL INJ 1 mL 5000 UNIT SUBCUT ×3 (03:10→17:03)
[2023-08-29] MEDS: FUROsemide 100 MG in sodium chloride 0.9% 40 ML IV (03:11)
[2023-08-29] MEDS: insulin glargine 100 units/1 mL 30 UNIT SUBCUT ×2 (03:13→20:30)
--- NOTE | 2023-08-29 03:34 | W.ED.SOB ---
HPI - SOB/Dyspnea General: Chief Complaint: Shortness of Breath/Dyspnea Stated Complaint: Sob Time Seen by Provider: 08/28/23 22:17 Source: patient History of Present Illness: HPI Narrative: 58-year-old male who was evaluated yesterday in the emergency room. He was diagnosed with bronchitis and given steroids, inhalers, and Lasix. He notes that despite this, he has continued to get more short of breath. He took his medication, which did not seem to help. His albuterol inhaler helps to some degree. He is short of breath with any exertion at all. He has a history of hypertension, is on several different medications for hypertension as well. He denies significant chest pain. He has had lower extremity swelling. No fever. MD elicited complaint: shortness of breath Associated symptoms: Reports nausea; Deny abdominal pain, chest pain, fever(s) or vomiting Related Data: Home oxygen amount: none Review of Systems Const: Denies: fever(s) ENMT: Denies: throat pain Card: Denies: chest pain Resp: Reports: dyspnea and non-productive cough GI: Reports: nausea; Denies: abdominal pain or vomiting PFS ED PFSH: Medical History Hypertension Diabetes type 2, uncontrolled Contrast-induced nephropathy Hypertensive crisis Need for dental care Migraine Intractable vomiting Acute on chronic kidney failure Hypertensive urgency Hyperosmolar hyperglycemic state (HHS) DKA (diabetic ketoacidosis) Prosthesis fitting Hypokalemia Hypertensive urgency Microscopic hematuria Nausea and vomiting Diabetes mellitus with gastroparesis Osteomyelitis Contrast dye induced nephropathy Acute renal failure superimposed on stage 3b chronic kidney disease Peripheral arterial disease Acquired rearfoot varus Diabetic peripheral neuropathy associated with type 2 diabetes mellitus 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 Chronic renal impairment Hyperlipidemia associated with type 2 diabetes mellitus Statin intolerance Foot abscess, left Diabetic foot infection Essential hypertension Hyperlipidemia, mixed Surgical History S/P hemodialysis catheter insertion S/P BKA (below knee amputation) (04/05/21) History of partial amputation of toe of right foot History of amputation of lesser toe Amputated toe of right foot secondary to osteomyelitis 4th right toe Family History Father Diabetes Mother Diabetes Other Hypertension Social History Smoking and tobacco/nicotine status: never used tobacco/nicotine Second hand smoke exposure: No Alcohol intake: former Substance/Drug Use: never Adopted: No Caregiver/support person: No Lives independently: Yes Household members: spouse Housing: House Marital status: service: No Current occupational status: employed Pets and animals: Yes Do you think of yourself as: Straight/Heterosexual Current gender identity: Male Physical Exam Const: GENERAL APPEARANCE: cooperative and ill appearing HENMT: COMMON NORMALS: normocephalic, atraumatic and Normal external nose present HEAD & SCALP: normocephalic and atraumatic NOSE: Normal external nose present Eye: COMMON NORMALS: Equal, round and reactive pupils present and EOMs intact bilaterally PUPIL: Yes Equal, round and reactive pupils present Neck/C-Spine: GENERAL: Yes trachea midline Chest: CHEST: Yes Symmetrical chest wall rise Resp: COMMON NORMALS: clear to auscultation bilaterally EFFORT & INSPECTION: Yes tachypneic and Yes labored AUSCULTATION: clear to auscultation bilaterally and diminished lung sounds Cardio: COMMON NORMALS: regular rate and regular rhythm RATE: regular rate RHYTHM: regular rhythm GI: COMMON NORMALS: Normal to inspection, nondistended, normoactive bowel sounds present Extremity: COMMON NORMALS: capillary refill normal Neuro: JESS COMA SCALE: document GCS findings [place] coma scale eye opening: Spontaneous [place] coma scale verbal response: Orientated Jess coma scale motor response: Obey commands Jess coma scale total score: 15 Course Vital Signs: Vital signs: Vital Signs Temperature 98.9 F 08/29/23 12:00 Pulse Rate 83 08/29/23 18:00 Respiratory Rate 20 H 08/29/23 18:00 Blood Pressure 172/96 08/29/23 18:00 Pulse Oximetry 95 08/29/23 18:00 Oxygen Delivery Me thod Nasal Cannula 08/29/23 12:00 Oxygen Flow Rate 3 08/29/23 12:00 MDM - SOB/Dyspnea Medical Decision Making Respirations are particularly labored on exam. He is improved on 4 L of oxygen here. Saturations were low 90s on this. His white blood cell count is 14. Hemoglobin 10. His creatinine is 4.5. Potassium up to 5.3. This is a mild bump for the patient. He has metabolic acidosis. He has pulmonary edema on chest x-ray. He is given sodium bicarbonate, albuterol, and Lasix for his potassium. And to start diuresis. He will require gentle diuresis given his increasing creatinine and BUN. Nephrology may need to be consulted. He is on oxygen, so we will have to admit. Hospitalist is notified and agrees. Lab Data 08/29/23 02:26 08/29/23 02:26 Labs/Radiology: Radiology Impressions Chest X-Ray 08/28/23 20:21 IMPRESSION: Interstitial prominence likely representing pulmonary edema in the setting of shortness of breath and fluid retention. Possible trace effusions. Laboratory Results WBC 13.90 10^3/uL (3.29-11.43) H 08/28/23 20:49 RBC 3.75 10^6/uL (3.85-5.65) L 08/28/23 20:49 Hgb 10.30 g/dL (11.27-16.99) L 08/28/23 20:49 Hct 31.1 % (37-53) L 08/28/23 20:49 MCV 82.9 fl (82-101) 08/28/23 20:49 MCH 27.5 pg (27-33) 08/28/23 20:49 MCHC 33.1 g/dL (30-55) 08/28/23 20:49 RDW 13.2 % (12.1-15.1) 08/28/23 20:49 Plt Count 292 10^3/cmm (157-399) 08/28/23 20:49 MPV 9.5 fL (7.4-10.4) 08/28/23 20:49 Neut % (Auto) 89.2 % 08/28/23 20:49 Lymph % (Auto) 4.1 % 08/28/23 20:49 [place] % (Auto) 5.8 % 08/28/23 20:49 Eos % (Auto) 0.0 % 08/28/23 20:49 Baso % (Auto) 0.1 % 08/28/23 20:49 Neut # (Auto) 12.40 10^3/uL (1.8-7.7) H 08/28/23 20:49 Lymph # (Auto) 0.6 10^3/uL (0.8-4.8) L 08/28/23 20:49 [place] # (Auto) 0.8 10^3/uL (0.2-0.9) 08/28/23 20:49 Eos # (Auto) 0.0 10^3/uL (0.0-0.8) 08/28/23 20:49 Baso # (Auto) 0.0 10^3/uL (0.0-0.1) 08/28/23 20:49 Nucleated RBC % (auto) 0 % 08/28/23 20:49 Nucleated RBCs # 0.0 /100WBC 08/28/23 20:49 Sodium 125 mmol/L (136-145) L 08/28/23 20:49 Potassium 5.3 mmol/L (3.5-5.1) H 08/28/23 20:49 Chloride 91 mmol/L (98-107) L 08/28/23 20:49 Carbon Dioxide 17 mmol/L (22-29) L 08/28/23 20:49 Anion Gap 22.3 (5-19) H 08/28/23 20:49 BUN 70 mg/dL (8-23) H 08/28/23 20:49 Creatinine 4.5 mg/dL (0.7-1.2) H 08/28/23 20:49 GFR Calculation 13.4 mL/min (90-130) L 08/28/23 20:49 Glucose 332 mg/dL (65-115) H 08/28/23 20:49 Calculated Osmolality 293 mOsm/kg (285-295) 08/28/23 20:49 Lactic Acid 1.1 mmol/L (0.5-2.2) 08/28/23 20:49 Calcium 7.8 mg/dL (8.5-10.5) L 08/28/23 20:49 Troponin T Baseline 66 ng/L (0-15) H 08/28/23 20:49 Troponin T 120 Minute 73.55 ng/L (0-15) H 08/28/23 23:20 Delta Troponin T 7.55 ABS# (0-10) 08/28/23 23:20 Urine Color Yellow (Yellow) 08/28/23 01:36 Urine Appearance Cloudy (CLEAR) A 08/28/23 01:36 Urine pH 5 (5-7) 08/28/23 01:36 Ur Specific [place] 1.020 (1.005-1.030) 08/28/23 01:36 Urine Protein 3+ (Negative) H 08/28/23 01:36 Urine Glucose (UA) 1+ (Normal) H 08/28/23 01:36 Urine Ketones Negative (Negative) 08/28/23 01:36 Urine Blood 2+ (Negative) H 08/28/23 01:36 Urine Nitrate Negative (Negative) 08/28/23 01:36 Urine Bilirubin Neg (Negative) 08/28/23 01:36 Urine Urobilinogen Neg mg/dL (Negative) 08/28/23 01:36 Ur Leukocyte Esterase Negative (Negative) 08/28/23 01:36 Urine RBC 0-4 /hpf (0-2) H 08/28/23 01:36 Urine WBC 0-4 /hpf (0-5) H 08/28/23 01:36 Ur Squamous Epith Cells 0-4 /hpf (0-5) H 08/28/23 01:36 Amorphous Sediment 1+ /hpf 08/28/23 01:36 Urine Bacteria 2+ /hpf (NONE) H 08/28/23 01:36 Hyaline Casts 0-4 /lpf H 08/28/23 01:36 Coarse Granular Casts 0-4 /lpf H 08/28/23 01:36 Urine Mucus 1+ /hpf 08/28/23 01:36 All radiology interpretation(s) finalized by discharge Discharge Plan Discharge Patient Disposition: Admitted As Inpatient Admit Provider: Olga Mueller Clinical Impression: Acute hypoxic respiratory failure, Acute decompensated heart failure, Pulmonary edema Condition: Fair Coding Level of Care Code ED Manager Quality for [place]
[2023-08-29] MEDS: insulin lispro 100 unit/1 mL 6 UNIT SUBCUT (03:52)
[2023-08-29] MEDS: FUROsemide 10 mg/mL SDV 2mL 20 MG IVP (03:55)
--- NOTE | 2023-08-29 04:00 | PC.NURSE ---
This nurse took report and received patient, after placing romeo, Patient received order from physician to place on lasix drip due to fluid overload. Patient had to be transferred to ICU for drip orders. Patient transferred and notified.
[2023-08-29 07:12] LABS: Albumin Level 3.6 g/dL (3.5-5.2); Anion Gap 24.5 (5-19); Blood Urea Nitrogen 73 mg/dL (8-23); Carbon Dioxide 18 mmol/L (22-29); Chloride 92 mmol/L (98-107); Glomerular Filtration Rate 13.4 mL/min (90-130); Glucose 289 mg/dL (65-115); Potassium 4.5 mmol/L (3.5-5.1); Sodium 130 mmol/L (136-145)
[2023-08-29 07:18] LABS: Procalcitonin 0.36 ng/mL (0-0.5)
[2023-08-29 07:25] LABS: Creatinine Clr Calc Pharmacy 22.7177
--- NOTE | 2023-08-29 08:26 | P.CONIM_ITS ---
Providers/Reason For Consult 2 Consulting Physician/Specialty*: radha Reason for Consult*: alesia Attending Physician: Woodrow Metzger MD Primary Care Provider: MARK Kilpatrick History of Present Illness History of Present Illness Martir Kruger is a 58 year old male Patient is a 58-year-old male with past medical history of diabetes, hypertension, chronic kidney disease stage IV, CHF presented to the emergency department due to cough and shortness of breath. Patient was noted to have volume overload with lower extremity edema and chest x-ray showed pulmonary edema. Lab data is significant for hemoglobin of 9.5 sodium of 128 creatinine of 4.8 Home medications include Lasix 40 mg daily hydralazine 25 mg twice daily and metoprolol 25 mg twice daily. Patient is currently started on Lasix drip Review of Systems 2 Narrative: Other ROS negative Medications/Allergies Home Medications Medication Instructions Recorded Confirmed Last Taken Type prosthetic supplies #1 ea 09/23/22 06/29/23 Unknown Rx insulin detemir U-100 100 unit/mL See Rx Instructions .Route 03/25/23 06/29/23 Unknown Rx (3 mL) subcutaneous pen (Levemir .COMPLEX #15 mL FlexPen) nifedipine 30 mg tablet,extended 60 mg (2 x 30 mg) PO DAILY #90 tabs 03/25/23 06/29/23 Unknown Rx release 24 hr prosthetic leg sleeve #2 ea 04/26/23 06/29/23 Unknown Rx hydralazine 25 mg tablet 25 mg PO BID #180 tabs 06/29/23 06/29/23 Unknown Rx metoprolol tartrate 25 mg tablet 25 mg PO BID #180 tabs 06/29/23 06/29/23 Unknown Rx insulin regular hum U-500 conc 500 See Rx Instructions .Route 07/21/23 Unknown Rx unit/mL(3 mL) subcut pen (Humulin .COMPLEX #6 mL R U-500 (Conc) Insulin Kwikpen) atorvastatin 10 mg tablet See Rx Instructions .Route 07/26/23 Unknown Rx .COMPLEX #90 tabs flash glucose sensor (FreeStyle #2 ea 08/09/23 Unknown Rx Julius 2 Sensor kit) albuterol sulfate 90 mcg/actuation 1 inh inhalation Q6H PRN shortness 08/27/23 Unknown Rx aerosol inhaler (Ventolin HFA) of breath or wheezing #8.5 grams azithromycin 250 mg tablet See Rx Instructions PO .COMPLEX #6 08/27/23 Unknown Rx tabs furosemide 40 mg tablet (Lasix) 40 mg PO DAILY #5 tabs 08/27/23 Unknown Rx prednisone 20 mg tablet 20 mg PO BID 7 days #14 tabs 08/27/23 Unknown Rx Allergies Allergy/AdvReac Type Severity Reaction Status Date / Time No Known Allergies Allergy Verified 08/28/23 19:38 Current Medications Generic Name Dose Route Start Last Admin Trade Name Roseanne PRN Reason Stop Dose Admin Heparin Sodium (Porcine) 5,000 unit 08/29/23 02:15 08/29/23 03:10 Heparin 5,000 Unit/Ml Inj 1 Ml SUBCUT 5,000 unit Q8H MANUELA Administration Furosemide 100 mg/ Sodium 50 mls @ 0 mls/hr 08/29/23 02:15 08/29/23 03:11 Chloride IV 10 mg/hr .Q0M MANUELA 5 mls/hr Administration Protocol Per Protocol Insulin Glargine 30 unit 08/29/23 02:15 08/29/23 03:13 Insulin Glargine 100 Units/1 Ml SUBCUT 30 unit BEDTIME MANUELA Administration PFSH Acute 2 PFSH: Medical History Hypertension Diabetes type 2, uncontrolled Contrast-induced nephropathy Hypertensive crisis Need for dental care Migraine Intractable vomiting Acute on chronic kidney failure Hypertensive urgency Hyperosmolar hyperglycemic state (HHS) DKA (diabetic ketoacidosis) Prosthesis fitting Hypokalemia Hypertensive urgency Microscopic hematuria Nausea and vomiting Diabetes mellitus with gastroparesis Osteomyelitis Contrast dye induced nephropathy Acute renal failure superimposed on stage 3b chronic kidney disease Peripheral arterial disease Acquired rearfoot varus Diabetic peripheral neuropathy associated with type 2 diabetes mellitus 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 Chronic renal impairment Hyperlipidemia associated with type 2 diabetes mellitus Statin intolerance Foot abscess, left Diabetic foot infection Essential hypertension Hyperlipidemia, mixed Surgical History S/P hemodialysis catheter insertion S/P BKA (below knee amputation) (04/05/21) History of partial amputation of toe of right foot History of amputation of lesser toe Amputated toe of right foot secondary to osteomyelitis 4th right toe Family History Father Diabetes Mother Diabetes Other Hypertension Social History Smoking and tobacco/nicotine status: never used tobacco/nicotine Second hand smoke exposure: No Alcohol intake: former Substance/Drug Use: never Adopted: No Caregiver/support person: No Lives independently: Yes Household members: spouse Housing: House Marital status: service: No Current occupational status: employed Pets and animals: Yes Do you think of yourself as: Straight/Heterosexual Current gender identity: Male Vitals/I&O/Wt Last Vital Signs Temp 97.6 F 08/29/23 04:00 Pulse 97 08/29/23 07:37 Resp 20 H 08/29/23 06:00 BP 160/69 08/29/23 06:00 Pulse Ox 95 08/29/23 07:37 O2 Del Method Nasal Cannula 08/29/23 07:37 O2 Flow Rate 3 08/29/23 07:37 08/28/23 08/29/23 08/29/23 22:59 06:59 14:59 Intake Total 0 / 0 Output Total 1175 / 1175 Balance -1175 / -1175 Weight last 48 hrs Weight 123.967 kg Weight 126.008 kg Weight 120.202 kg Physical Exam 2 Narrative: awake , alert , no distress HEENT S1S2 RRR per report crackles dinora per report + edema Urinary Catheter Management: Martinez: Cath Placed During This Visit: yes Reason for Continuing Indwelling Catheter: Accurate Measurement of Urinary Output in Critically Ill Patients Urinary Catheter Date of Insertion: 08/29/23 Urinary Catheter Time of Insertion: 01:50 Data 08/29/23 02:26 08/29/23 02:26 A&P Assessment and plan (1) Acute kidney injury superimposed on chronic kidney disease: 1. Acute on chronic kidney disease stage IV.: Patient's baseline creatinine is in the 3 range now has an ALESIA with a creatinine of 4.8 in the setting of CHF exacerbation/possible cardiorenal etiology. -Agree with IV Lasix drip, strict intake and output -2 g sodium restriction 1500 mL fluid restriction -No acute indication for dialysis currently, 2. CHF exacerbation: Diuretics as above 3. History of hypertension: Blood pressure in the 140s range 4. Anemia: Will order ALANIS 5. Metabolic acidosis: Will add Bicitra Consult Attestations 2 Medical Necessity Statement: per medicine team Coding Level of Care Code Acute Code for Chg Fwd Diagnoses Acute kidney injury superimposed on chronic kidney disease N17.9; N18.9
[2023-08-29 08:30] LABS: Glucose Point of Care 274 mg/dL (70-110)
[2023-08-29] MEDS: insulin lispro 100 unit/1 mL SUBCUT ×3 (08:37→20:29)
[2023-08-29] MEDS: azithromycin 250 mg Tablet PO (08:38)
[2023-08-29] MEDS: metoprolol tartrate 25 mg Tablet PO ×2 (08:38→17:00)
[2023-08-29] MEDS: atorvastatin 40 mg Tablet 20 MG PO (08:38)
[2023-08-29] MEDS: hyDRALAzine 25 mg Tablet PO ×2 (08:38→17:00)
[2023-08-29] MEDS: NIFEdipine ER (24 hr) 30 mg Tablet 60 MG PO (08:39)
[2023-08-29] MEDS: cefTRIAXone 1,000 MG in sodium chloride 0.9% (plus) 50 ML 100 MG IV (08:47)
--- NOTE | 2023-08-29 09:04 | P.PN_ITS ---
Subjective 2 Subjective: Consulted nephro Creatinine improving with diuresis Patient has anasarca Vitals/I&O/Wt Last Vital Signs Temp 98.7 F 08/29/23 08:30 Pulse 75 08/29/23 08:30 Resp 20 H 08/29/23 08:30 BP 157/80 08/29/23 08:30 Pulse Ox 92 08/29/23 08:30 O2 Del Method Nasal Cannula 08/29/23 08:30 O2 Flow Rate 3 08/29/23 08:30 08/28/23 08/29/23 08/29/23 22:59 06:59 14:59 Intake Total 0 / 0 360 / 360 Output Total 1175 / 1175 600 / 600 Balance -1175 / -1175 -240 / -240 Weight last 48 hrs Weight 123.967 kg Weight 126.008 kg Weight 120.202 kg Physical Exam 2 Narrative: Anasarca GCS 15 Hemodynamically stable Nonfocal neuroexam Significant edema all over S1, S2 Hemodynamic stable currently on 3 L Does not use oxygen at home Urinary Catheter Management: Martinez: Cath Placed During This Visit: yes Reason for Continuing Indwelling Catheter: Accurate Measurement of Urinary Output in Critically Ill Patients Urinary Catheter Date of Insertion: 08/29/23 Urinary Catheter Time of Insertion: 01:50 Data 08/29/23 02:26 08/29/23 02:26 A&P Assessment and plan (1) Hypertension: Qualifiers: Hypertension type: secondary to other renal disorders Qualified Code(s): I15.1 - Hypertension secondary to other renal disorders (2) Acute decompensated heart failure: (3) Diabetes type 2, uncontrolled: Qualifiers: Glycemic state: with hyperglycemia Qualified Code(s): E11.65 - Type 2 diabetes mellitus with hyperglycemia (4) Fluid overload: Qualifiers: Hypervolemia type: unspecified Qualified Code(s): E87.70 - Fluid overload, unspecified (5) Hyponatremia: (6) Acute kidney injury superimposed on chronic kidney disease: (7) Acute hypoxic respiratory failure: Plan Acute on chronic kidney disease Currently on Lasix drip Worsening volume overload Anasarca Consult nephro Continue Lasix drip I will add potassium supplementation as well Creatinine improving Patient is at risk of dialysis Acidosis, add bicarb Hyponatremia related to volume overload Patient is full code Hypoxia related to volume overload Patient follows up with ticket writer in [place] Full code Attestations 2 Medical Necessity Statement*: Continue medical management Diagnoses Hypertension secondary to other renal disorders I15.1 Hypertension type: secondary to other renal disorders Acute decompensated heart failure I50.9 Uncontrolled type 2 diabetes mellitus with hyperglycemia E11.65 Glycemic state: with hyperglycemia Fluid overload E87.70 Hypervolemia type: unspecified Hyponatremia E87.1 Acute kidney injury superimposed on chronic kidney disease N17.9; N18.9 Acute hypoxic respiratory failure J96.01
[2023-08-29] MEDS: citric acid-sodium citrate 30 mL UDC PO (10:22)
[2023-08-29] MEDS: epoetin alfa 20,000 unit/mL MDV (NON-ESRD) 20000 UNIT SUBCUT (10:22)
[2023-08-29] MEDS: acetaminophen 325 mg Tablet 650 MG PO ×3 (10:34→22:32)
[2023-08-29] MEDS: FUROsemide 100 MG in sodium chloride 0.9% 40 ML 10 MG IV ×3 (11:05→17:38)
[2023-08-29 11:16] LABS: Glucose Point of Care 275 mg/dL (70-110)
[2023-08-29] MEDS: sodium bicarbonate 650 mg Tablet 1300 MG PO ×2 (15:49→20:26)
[2023-08-29 17:52] LABS: Glucose Point of Care 136 mg/dL (70-110)
[2023-08-29 19:43] LABS: Blood Urea Nitrogen 75 mg/dL (8-23); Calcium 7.8 mg/dL (8.5-10.5); Carbon Dioxide 23 mmol/L (22-29); Chloride 95 mmol/L (98-107); Creatinine Clr Calc Pharmacy 22.2239; Glomerular Filtration Rate 13.1 mL/min (90-130); Glucose 158 mg/dL (65-115); Osmolality Calculated 302 mOsm/kg (285-295); Sodium 133 mmol/L (136-145)
[2023-08-29 19:54] LABS: Anion Gap 18.9 (5-19); Potassium 3.9 mmol/L (3.5-5.1)
[2023-08-29] MEDS: potassium chloride ER 20 mEq Tablet PO (20:26)
[2023-08-29] MEDS: hyDRALAzine 20 mg/mL INJ 1 mL 10 MG IVP (22:52)
[2023-08-30] VITALS (52 sets, daily range): BP systolic 134–195; BP diastolic 52–110; PULSE 64–103; RESP 12–32; TEMP 37–37.3; O2SAT 89–97
[2023-08-30] MEDS: FUROsemide 100 MG in sodium chloride 0.9% 40 ML IV (00:17)
[2023-08-30 01:59] LABS: Anion Gap 20.5 (5-19); Blood Urea Nitrogen 73 mg/dL (8-23); Calcium 8.2 mg/dL (8.5-10.5); Carbon Dioxide 25 mmol/L (22-29); Chloride 93 mmol/L (98-107); Creatinine Clr Calc Pharmacy 22.7177; Glomerular Filtration Rate 13.4 mL/min (90-130); Glucose 84 mg/dL (65-115); Osmolality Calculated 301 mOsm/kg (285-295); Potassium 3.5 mmol/L (3.5-5.1); Sodium 135 mmol/L (136-145)
--- NOTE | 2023-08-30 02:20 | PC.NURSE ---
Physician Communication: Urine output persistently over goal of 125ml/hr per protocol. Dr. Monahan notified. Rate dropped to half of minimum dosage per protocol, see MAR for titrations. BMP resulted, Dr. Monahan notified of Potassium 3.5, new order for 40 mEq Klor-Con PO ONCE NOW. BP remains elevated, new order for Hydralazine 10mg IVP ONCE 4 hours post infusion of previous infusion- 0252.
[2023-08-30] MEDS: hyDRALAzine 20 mg/mL INJ 1 mL 10 MG IVP ×2 (02:51→05:01)
[2023-08-30] MEDS: potassium chloride ER 20 mEq Tablet 40 MEQ PO (02:51)
[2023-08-30] MEDS: heparin 5,000 unit/mL INJ 1 mL 5000 UNIT SUBCUT ×3 (02:51→17:24)
--- NOTE | 2023-08-30 03:24 | PC.NURSE ---
Pausing Lasix Drip: Dr. Burns called @[phone] to update on urine output related to lasix drip. New order to pause Lasix drip.
[2023-08-30 04:34] LABS: Basophils % 0.2 %; Eosinophils % 0.3 %; Hematocrit 30.4 % (37-53); Lymphocytes # 1.4 10^3/uL (0.8-4.8); Mean Corpuscular HGB Conc 32.9 g/dL (30-55); Mean Corpuscular Hemoglobin 27.2 pg (27-33); Mean Corpuscular Volume 82.8 fl (82-101); Mean Platelet Volume 9.3 fL (7.4-10.4); Monocytes % 10.1 %; Neutrophils # 7.48 10^3/uL (1.8-7.7); Neutrophils % 74.5 %; Nucleated Red Blood Cells % 0.2 %; Platelet Count 307 10^3/cmm (157-399); Red Blood Count 3.67 10^6/uL (3.85-5.65); Red Cell Distribution Width 13.2 % (12.1-15.1); White Blood Count 10.05 10^3/uL (3.29-11.43)
[2023-08-30 05:00] LABS: Anion Gap 18.8 (5-19); Blood Urea Nitrogen 75 mg/dL (8-23); Calcium 8.2 mg/dL (8.5-10.5); Carbon Dioxide 25 mmol/L (22-29); Chloride 96 mmol/L (98-107); Creatinine Clr Calc Pharmacy 22.2239; Glomerular Filtration Rate 13.1 mL/min (90-130); Glucose 103 mg/dL (65-115); Osmolality Calculated 305 mOsm/kg (285-295); Potassium 3.8 mmol/L (3.5-5.1); Sodium 136 mmol/L (136-145)
[2023-08-30 05:11] LABS: Glucose Point of Care 188 mg/dL (70-110)
[2023-08-30 06:36] LABS: Glucose Point of Care 123 mg/dL (70-110)
--- NOTE | 2023-08-30 06:50 | P.PN_ITS ---
Subjective 2 Subjective: no new c/ Medications: Reviewed: Yes Vitals/I&O/Wt Last Vital Signs Temp 98.9 F 08/30/23 06:35 Pulse 101 H 08/30/23 06:30 Resp 19 H 08/30/23 06:30 BP 170/82 08/30/23 06:30 Pulse Ox 93 08/30/23 06:30 O2 Del Method Nasal Cannula 08/29/23 20:00 O2 Flow Rate 2 08/29/23 20:00 08/29/23 08/29/23 08/30/23 14:59 22:59 06:59 Intake Total 2062.416 / 2062.416 182.5 / 2244.916 118.625 / 2363.541 Output Total 1455 / 1455 1850 / 3305 1450 / 4755 Balance 607.416 / 607.416 -1667.5 / -1060.084 -1331.375 / -2391.459 Weight last 48 hrs Weight 122.016 kg Weight 123.967 kg Weight 126.008 kg Weight 120.202 kg Physical Exam 2 Narrative: awake , alert , no distress HEENT S1S2 RRR per report crackles dinora per report + edema Urinary Catheter Management: Martinez: Cath Placed During This Visit: yes Reason for Continuing Indwelling Catheter: Accurate Measurement of Urinary Output in Critically Ill Patients Urinary Catheter Date of Insertion: 08/29/23 Urinary Catheter Time of Insertion: 01:50 Data 08/30/23 04:23 08/30/23 04:23 A&P Assessment and plan (1) Acute kidney injury superimposed on chronic kidney disease: 1. Acute on chronic kidney disease stage IV.: Patient's baseline creatinine is in the 3 range now has an ALESIA with a creatinine of 4.8 in the setting of CHF exacerbation/possible cardiorenal etiology. -on IV Lasix drip- UOP > 4 L, held lasix drip, , strict intake and output -2 g sodium restriction 1500 mL fluid restriction -No acute indication for dialysis currently, 2. CHF exacerbation: Diuretics as above 3. History of hypertension: Blood pressure in the 140s range 4. Anemia: Will order ALANIS 5. Metabolic acidosis: on Bicitra Attestations 2 Medical Necessity Statement*: per medicine team Coding Level of Care Code Acute Code for Chg Fwd Diagnoses Acute kidney injury superimposed on chronic kidney disease N17.9; N18.9
[2023-08-30 08:17] LABS: Glucose Point of Care 119 mg/dL (70-110)
[2023-08-30] MEDS: sodium bicarbonate 650 mg Tablet 1300 MG PO (08:22)
[2023-08-30] MEDS: metoprolol tartrate 25 mg Tablet PO ×2 (08:23→17:23)
[2023-08-30] MEDS: atorvastatin 40 mg Tablet 20 MG PO (08:23)
[2023-08-30] MEDS: hyDRALAzine 25 mg Tablet PO ×2 (08:25→17:23)
[2023-08-30] MEDS: azithromycin 250 mg Tablet PO (08:25)
[2023-08-30] MEDS: potassium chloride ER 20 mEq Tablet PO (08:25)
[2023-08-30] MEDS: NIFEdipine ER (24 hr) 30 mg Tablet 60 MG PO (08:26)
[2023-08-30] MEDS: cefTRIAXone 1,000 MG in sodium chloride 0.9% (plus) 50 ML 100 MG IV (08:27)
[2023-08-30 12:21] LABS: Glucose Point of Care 262 mg/dL (70-110)
[2023-08-30] MEDS: insulin lispro 100 unit/1 mL SUBCUT ×2 (12:28→21:23)
--- NOTE | 2023-08-30 13:35 | P.PN_ITS ---
Subjective 2 Subjective: Patient can be transferred out of ICU to [facility] Patient nephro recommendations Lasix drip has been transitioned to IV regimen Patient is endorsing feeling better Vitals/I&O/Wt Last Vital Signs Temp 98.6 F 08/30/23 08:30 Pulse 92 08/30/23 13:30 Resp 16 08/30/23 13:30 BP 134/68 08/30/23 13:30 Pulse Ox 94 08/30/23 13:30 O2 Del Method Room Air 08/30/23 09:17 O2 Flow Rate 2 08/29/23 20:00 08/29/23 08/30/23 08/30/23 22:59 06:59 14:59 Intake Total 182.5 / 2244.916 118.625 / 2363.541 530 / 530 Output Total 1850 / 3305 1450 / 4755 Balance -1667.5 / -1060.084 -1331.375 / -2391.459 530 / 530 Weight last 48 hrs Weight 122.016 kg Weight 123.967 kg Weight 126.008 kg Weight 120.202 kg Physical Exam 2 Narrative: Mild improvement in anasarca Currently on room air Doing well Pleasant cooperative Blood pressure stable Family at the bedside Patient is pleasant and cooperative Sitting in a chair Urinary Catheter Management: Martinez: Cath Placed During This Visit: yes, but has since been removed by the nurse Reason for Continuing Indwelling Catheter: Accurate Measurement of Urinary Output in Critically Ill Patients Urinary Catheter Date of Insertion: 08/29/23 Urinary Catheter Time of Insertion: 01:50 Date Urinary Catheter Removed: 08/30/23 Time Urinary Catheter Discontinued: 10:41 Data 08/30/23 04:23 08/30/23 04:23 Micro: Microbiology 08/28/23 01:36 Urine Culture - Preliminary Urine,Clean Catch A&P Assessment and plan (1) Hypertension: Qualifiers: Hypertension type: secondary to other renal disorders Qualified Code(s): I15.1 - Hypertension secondary to other renal disorders (2) Acute decompensated heart failure: (3) Hyperlipidemia: Qualifiers: Hyperlipidemia type: mixed hyperlipidemia Qualified Code(s): E78.2 - Mixed hyperlipidemia (4) Diabetes type 2, uncontrolled: Qualifiers: Glycemic state: with hyperglycemia Qualified Code(s): E11.65 - Type 2 diabetes mellitus with hyperglycemia (5) Fluid overload: Qualifiers: Hypervolemia type: unspecified Qualified Code(s): E87.70 - Fluid overload, unspecified (6) Hyponatremia: (7) Pulmonary edema: (8) Acute kidney injury superimposed on chronic kidney disease: Plan Volume overload Acute on chronic kidney disease Improvement with IV Lasix drip noticed Transition to IV Lasix regimen Continue present supplementation No signs of contraction alkalosis Hypertensive urgency: Improved Community-acquired pneumonia: Ruled out no fever or significant leukocytosis I will discontinue ceftriaxone, DVT prophylaxis: Heparin Type 2 diabetes continue insulin at lower dose along regimen sliding scale Can be transferred out of ICU to [facility] no Indication for dialysis Attestations 2 Medical Necessity Statement*: Continue medical management Diagnoses Hypertension secondary to other renal disorders I15.1 Hypertension type: secondary to other renal disorders Acute decompensated heart failure I50.9 Mixed hyperlipidemia E78.2 Hyperlipidemia type: mixed hyperlipidemia Uncontrolled type 2 diabetes mellitus with hyperglycemia E11.65 Glycemic state: with hyperglycemia Fluid overload E87.70 Hypervolemia type: unspecified Hyponatremia E87.1 Pulmonary edema J81.1 Acute kidney injury superimposed on chronic kidney disease N17.9; N18.9
[2023-08-30] MEDS: FUROsemide 10 mg/mL SDV 4mL 40 MG IVP (17:24)
[2023-08-30 21:03] LABS: Glucose Point of Care 243 mg/dL (70-110)
[2023-08-30] MEDS: insulin glargine 100 units/1 mL 30 UNIT SUBCUT (21:22)
[2023-08-31] VITALS (29 sets, daily range): BP systolic 137–198; BP diastolic 70–92; PULSE 79–95; RESP 12–20; TEMP 36.3–37.1; O2SAT 82–96
[2023-08-31] MEDS: acetaminophen 325 mg Tablet 650 MG PO ×2 (01:29→21:54)
[2023-08-31] MEDS: heparin 5,000 unit/mL INJ 1 mL 5000 UNIT SUBCUT ×3 (01:29→17:43)
[2023-08-31 05:01] LABS: Basophils % 0.3 %; Eosinophils # 0.1 10^3/uL (0.0-0.8); Eosinophils % 0.9 %; Lymphocytes # 1.5 10^3/uL (0.8-4.8); Lymphocytes % 20.7 %; Mean Corpuscular HGB Conc 32.8 g/dL (30-55); Mean Corpuscular Hemoglobin 27.6 pg (27-33); Mean Corpuscular Volume 84.3 fl (82-101); Mean Platelet Volume 8.9 fL (7.4-10.4); Monocytes # 0.8 10^3/uL (0.2-0.9); Monocytes % 10.9 %; Neutrophils # 4.65 10^3/uL (1.8-7.7); Neutrophils % 66.3 %; Nucleated Red Blood Cells % 0 %; Platelet Count 266 10^3/cmm (157-399); Red Blood Count 3.44 10^6/uL (3.85-5.65); Red Cell Distribution Width 13.3 % (12.1-15.1)
[2023-08-31 05:29] LABS: Anion Gap 16.7 (5-19); Blood Urea Nitrogen 70 mg/dL (8-23); Calcium 8.1 mg/dL (8.5-10.5); Carbon Dioxide 27 mmol/L (22-29); Chloride 96 mmol/L (98-107); Glomerular Filtration Rate 14.2 mL/min (90-130); Glucose 78 mg/dL (65-115); Osmolality Calculated 301 mOsm/kg (285-295); Potassium 3.7 mmol/L (3.5-5.1); Sodium 136 mmol/L (136-145)
[2023-08-31 05:35] LABS: Creatinine Clr Calc Pharmacy 18.8142
[2023-08-31 05:40] LABS: Glucose Point of Care 78 mg/dL (70-110)
[2023-08-31] MEDS: FUROsemide 10 mg/mL SDV 4mL 40 MG IVP ×2 (05:41→17:43)
--- NOTE | 2023-08-31 06:20 | P.PN_ITS ---
Subjective 2 Subjective: no new c/o Medications: Reviewed: Yes Vitals/I&O/Wt Last Vital Signs Temp 97.7 F 08/31/23 06:00 Pulse 90 08/31/23 06:00 Resp 20 H 08/31/23 06:00 BP 144/73 08/31/23 06:00 Pulse Ox 96 08/31/23 06:00 O2 Del Method Room Air 08/30/23 09:17 O2 Flow Rate 2 08/29/23 20:00 08/30/23 08/30/23 08/31/23 14:59 22:59 06:59 Intake Total 530 / 530 120 / 650 120 / 770 Output Total 1500 / 1500 250 / 1750 Balance 530 / 530 -1380 / -850 -130 / -980 Weight last 48 hrs Weight 75.977 kg Weight 122.016 kg Physical Exam 2 Narrative: awake , alert , no distress HEENT S1S2 RRR per report crackles dinora per report + edema Urinary Catheter Management: Martinez: Cath Placed During This Visit: yes, but has since been removed by the nurse Reason for Continuing Indwelling Catheter: Accurate Measurement of Urinary Output in Critically Ill Patients Urinary Catheter Date of Insertion: 08/29/23 Urinary Catheter Time of Insertion: 01:50 Date Urinary Catheter Removed: 08/30/23 Time Urinary Catheter Discontinued: 10:41 Data 08/31/23 04:49 08/31/23 04:49 Micro: Microbiology 08/28/23 01:36 Urine Culture - Preliminary Urine,Clean Catch A&P Assessment and plan (1) Acute kidney injury superimposed on chronic kidney disease: 1. Acute on chronic kidney disease stage IV.: Patient's baseline creatinine is in the 3 range now has an ALESIA with a creatinine of 4.8 in the setting of CHF exacerbation/possible cardiorenal etiology. -s/p lasix drip, on IV lasix 40 mg IV BID , strict intake and output -2 g sodium restriction 1500 mL fluid restriction -No acute indication for dialysis currently, 2. CHF exacerbation: Diuretics as above 3. History of hypertension: Blood pressure in the 140s range 4. Anemia: Will order ALANIS 5. Metabolic acidosis: on Bicitra Attestations 2 Medical Necessity Statement*: PER HERLINDAND Coding Level of Care Code Acute Code for Chg Fwd Diagnoses Acute kidney injury superimposed on chronic kidney disease N17.9; N18.9
[2023-08-31] MEDS: insulin lispro 100 unit/1 mL SUBCUT ×4 (08:15→21:32)
[2023-08-31] MEDS: metoprolol tartrate 25 mg Tablet PO ×2 (08:15→17:43)
[2023-08-31] MEDS: NIFEdipine ER (24 hr) 30 mg Tablet 60 MG PO (08:16)
[2023-08-31] MEDS: azithromycin 250 mg Tablet PO (08:16)
[2023-08-31] MEDS: hyDRALAzine 25 mg Tablet PO ×2 (08:16→17:43)
[2023-08-31] MEDS: atorvastatin 40 mg Tablet 20 MG PO (08:16)
[2023-08-31] MEDS: potassium chloride ER 20 mEq Tablet PO (08:16)
[2023-08-31 08:29] LABS: Glucose Point of Care 166 mg/dL (70-110)
[2023-08-31 11:55] LABS: Glucose Point of Care 224 mg/dL (70-110)
--- NOTE | 2023-08-31 12:38 | P.PN_ITS ---
Subjective 2 Subjective: -5 L balance Transfer out of ICU to [facility] Patient hemodynamically stable Hypertensive Currently on room air Patient Justin is getting much better Able to use prosthesis go to the bathroom on his own Creatinine 4.3 Vitals/I&O/Wt Last Vital Signs Temp 97.9 F 08/31/23 08:00 Pulse 81 08/31/23 11:30 Resp 18 08/31/23 11:30 BP 172/77 08/31/23 11:30 Pulse Ox 92 08/31/23 11:30 O2 Del Method Room Air 08/30/23 09:17 O2 Flow Rate 2 08/29/23 20:00 08/30/23 08/31/23 08/31/23 22:59 06:59 14:59 Intake Total 120 / 650 120 / 770 360 / 360 Output Total 1500 / 1500 250 / 1750 1675 / 1675 Balance -1380 / -850 -130 / -980 -1315 / -1315 Weight last 48 hrs Weight 75.977 kg Weight 122.016 kg Physical Exam 2 Narrative: Sign of anasarca improving Currently on room air Hemodynamically stable with hypertension Anasarca improving abdominal distention still present Pleasant cooperative Able S1-S2 Sitting in a chair Urinary Catheter Management: Martinez: Cath Placed During This Visit: yes, but has since been removed by the nurse Reason for Continuing Indwelling Catheter: Accurate Measurement of Urinary Output in Critically Ill Patients Urinary Catheter Date of Insertion: 08/29/23 Urinary Catheter Time of Insertion: 01:50 Date Urinary Catheter Removed: 08/30/23 Time Urinary Catheter Discontinued: 10:41 Data 08/31/23 04:49 08/31/23 04:49 Micro: Microbiology 08/28/23 01:36 Urine Culture - Final Urine,Clean Catch A&P Assessment and plan (1) Hypertension: Qualifiers: Hypertension type: secondary to other renal disorders Qualified Code(s): I15.1 - Hypertension secondary to other renal disorders (2) Acute decompensated heart failure: (3) Diabetes type 2, uncontrolled: Qualifiers: Glycemic state: with hyperglycemia Qualified Code(s): E11.65 - Type 2 diabetes mellitus with hyperglycemia (4) Fluid overload: Qualifiers: Hypervolemia type: unspecified Qualified Code(s): E87.70 - Fluid overload, unspecified (5) Hyponatremia: (6) Acute kidney injury superimposed on chronic kidney disease: (7) Poorly fitting prosthesis for below knee amputation (BKA): (8) Pulmonary edema: Plan Our plan is to get patient out of ICU to [facility] Continue IV diuresis Adequate urine output -5 L balance Creatinine 4.3 No indication for dialysis He is off oxygen now Blood sugar still high we are using low-dose Lantus because of his high creatinine Will keep him on sliding scale Echo showing preserved action fraction with grade 2 diastolic dysfunction If his creatinine keeps trending down we might be able to discharge him in next 24 to 48 hours Patient is able to use his prosthesis Off oxygen today Pulm edema signs improving Appreciate nephro recommendations Attestations 2 Medical Necessity Statement*: Possible discharge in next 24 to 48 hours Diagnoses Hypertension secondary to other renal disorders I15.1 Hypertension type: secondary to other renal disorders Acute decompensated heart failure I50.9 Uncontrolled type 2 diabetes mellitus with hyperglycemia E11.65 Glycemic state: with hyperglycemia Fluid overload E87.70 Hypervolemia type: unspecified Hyponatremia E87.1 Acute kidney injury superimposed on chronic kidney disease N17.9; N18.9 Poorly fitting prosthesis for below knee amputation (BKA) Pulmonary edema J81.1
[2023-08-31 16:37] LABS: Glucose Point of Care 165 mg/dL (70-110)
[2023-08-31 20:37] LABS: Glucose Point of Care 256 mg/dL (70-110)
[2023-08-31] MEDS: insulin glargine 100 units/1 mL 35 UNIT SUBCUT (21:54)
[2023-09-01 00:28] VITALS: BP 153/70; PULSE 78; RESP 16; TEMP 37; O2SAT 97
[2023-09-01] MEDS: heparin 5,000 unit/mL INJ 1 mL 5000 UNIT SUBCUT ×2 (02:24→10:29)
[2023-09-01 04:46] VITALS: BP 166/75; PULSE 83; RESP 16; TEMP 37.1; O2SAT 96
[2023-09-01] MEDS: FUROsemide 10 mg/mL SDV 4mL 40 MG IVP (05:16)
--- NOTE | 2023-09-01 05:24 | P.PN_ITS ---
Subjective 2 Subjective: doing well Medications: Reviewed: Yes Vitals/I&O/Wt Last Vital Signs Temp 98.8 F 09/01/23 04:46 Pulse 83 09/01/23 04:46 Resp 16 09/01/23 04:46 BP 166/75 09/01/23 04:46 Pulse Ox 96 09/01/23 04:46 O2 Del Method Room Air 08/30/23 09:17 O2 Flow Rate 2 08/29/23 20:00 08/31/23 08/31/23 09/01/23 14:59 22:59 06:59 Intake Total 720 / 720 600 / 1320 120 / 1440 Output Total 1675 / 1675 1650 / 3325 600 / 3925 Balance -955 / -955 -1050 / -2005 -480 / -2485 Weight last 48 hrs Weight 118.932 kg Weight 75.977 kg Weight 122.016 kg Physical Exam 2 Narrative: awake , alert , no distress HEENT S1S2 RRR per report crackles dinora per report + edema Urinary Catheter Management: Martinez: Cath Placed During This Visit: yes, but has since been removed by the nurse Reason for Continuing Indwelling Catheter: Accurate Measurement of Urinary Output in Critically Ill Patients Urinary Catheter Date of Insertion: 08/29/23 Urinary Catheter Time of Insertion: 01:50 Date Urinary Catheter Removed: 08/30/23 Time Urinary Catheter Discontinued: 10:41 Data 09/01/23 05:32 09/01/23 05:32 Micro: Microbiology 08/28/23 01:36 Urine Culture - Final Urine,Clean Catch A&P Assessment and plan (1) Acute kidney injury superimposed on chronic kidney disease: 1. Acute on chronic kidney disease stage IV.: Patient's baseline creatinine is in the 3 range now has an ALESIA with a creatinine of 4.8 in the setting of CHF exacerbation/possible cardiorenal etiology. -s/p lasix drip, on IV lasix 40 mg IV BID -- change to PO lasix 40 mg BID , strict intake and output -2 g sodium restriction 1500 mL fluid restriction -renal fxn improved 2. CHF exacerbation: Diuretics as above 3. History of hypertension: Blood pressure in the 140s range 4. Anemia: Will order ALANIS 5. Metabolic acidosis: IMPROVED Attestations 2 Medical Necessity Statement*: per sushila Coding Level of Care Code Acute Code for Chg Fwd Diagnoses Acute kidney injury superimposed on chronic kidney disease N17.9; N18.9
[2023-09-01 05:50] LABS: Basophils % 0.5 %; Eosinophils # 0.1 10^3/uL (0.0-0.8); Hematocrit 33.3 % (37-53); Lymphocytes # 1.4 10^3/uL (0.8-4.8); Lymphocytes % 20.8 %; Mean Corpuscular HGB Conc 32.1 g/dL (30-55); Mean Corpuscular Hemoglobin 27.3 pg (27-33); Mean Corpuscular Volume 84.9 fl (82-101); Mean Platelet Volume 9.2 fL (7.4-10.4); Monocytes # 0.7 10^3/uL (0.2-0.9); Monocytes % 10.8 %; Neutrophils # 4.19 10^3/uL (1.8-7.7); Neutrophils % 64.4 %; Nucleated Red Blood Cells % 0 %; Platelet Count 298 10^3/cmm (157-399); Red Blood Count 3.92 10^6/uL (3.85-5.65); Red Cell Distribution Width 13.2 % (12.1-15.1)
[2023-09-01 06:23] LABS: Anion Gap 16.1 (5-19); Blood Urea Nitrogen 56 mg/dL (8-23); Calcium 8.2 mg/dL (8.5-10.5); Carbon Dioxide 27 mmol/L (22-29); Chloride 99 mmol/L (98-107); Glomerular Filtration Rate 16.3 mL/min (90-130); Glucose 95 mg/dL (65-115); Osmolality Calculated 301 mOsm/kg (285-295); Potassium 4.1 mmol/L (3.5-5.1); Sodium 138 mmol/L (136-145)
[2023-09-01 06:29] LABS: Creatinine Clr Calc Pharmacy 26.3137
[2023-09-01 06:31] LABS: Glucose Point of Care 109 mg/dL (70-110)
[2023-09-01 06:53] VITALS: BP 151/76; PULSE 88; RESP 17; TEMP 36.6; O2SAT 94
[2023-09-01] MEDS: atorvastatin 40 mg Tablet 20 MG PO (09:02)
[2023-09-01] MEDS: hyDRALAzine 25 mg Tablet PO (09:03)
[2023-09-01] MEDS: NIFEdipine ER (24 hr) 30 mg Tablet 60 MG PO (09:03)
[2023-09-01] MEDS: potassium chloride ER 20 mEq Tablet PO (09:03)
[2023-09-01] MEDS: metoprolol tartrate 25 mg Tablet PO (09:03)
[2023-09-01] MEDS: azithromycin 250 mg Tablet PO (09:03)
--- NOTE | 2023-09-01 10:43 | PM.DCS ---
Discharge Providers Date of Admission: 08/28/23 23:25 Date of Discharge: September 01, 2023 Attending Provider at Admission: Olga Mueller MD Attending Provider at Discharge: Woodrow Metzger MD Primary Care Provider: MARK Kilpatrick Diagnoses at Discharge Discharge Diagnosis (1) Acute kidney injury superimposed on chronic kidney disease: Status: Acute Reason for Visit Reason for Visit: Sob swollen everywhere Hospital Course Hospital Course 58-year-old male with a history of diastolic CHF, end-stage renal disease, Wednesday, hypertensive urgency, diabetic, presented to the hospital for anasarca worsening shortness of breath orthopnea PND and worsening kidney function, he was diagnosed with diastolic CHF exacerbation grade 2/4, echo was done during hospitalization, patient remained chest pain-free, he was diuresed aggressively with Lasix drip for about 30+ hours which was transitioned to IV Lasix, patient showed adequate response to Lasix he remained in negative balance, negative fluid [id number] without signs of contraction alkalosis, patient's anasarca improved significantly, we were able to wean him off oxygen as well, patient has a clinical education coordinator that he is seeing in [place] for his chronic kidney disease stage IV there is no plan for dialysis, clinical education coordinator was consulted during this hospitalization who helped us to manage his diuretics. No plan for dialysis. Patient's creatinine has improved, It is at baseline at the time of discharge, creatinine on admission 4.5, peaked at 4.8 at the time of discharge 3.8, please note patient was not on any diuretics before his admission in the hospital at the time of discharge I have asked him to take Bumex 2 mg twice a day for next 2 to 3 days and then switch to once daily 2 mg regimen he can increase up to 6 mg a day on as-needed basis. Patient to follow-up with his clinical education coordinator in [place]. He is doing well on room air hemodynamically stable. Physical Exam Narrative: Pleasant and cooperative Anasarca improved GCS 15 Nonfocal neuroexam S1, S2 Urinary Catheter Management: Martinez: Cath Placed During This Visit: yes, but has since been removed by the nurse Reason for Continuing Indwelling Catheter: Accurate Measurement of Urinary Output in Critically Ill Patients Urinary Catheter Date of Insertion: 08/29/23 Urinary Catheter Time of Insertion: 01:50 Date Urinary Catheter Removed: 08/30/23 Time Urinary Catheter Discontinued: 10:41 Discharge Data Studies Completed and Pending Completed Studies During Hospitalization Category Date Time Status XR chest 1V portable [id number] Stat Exams 08/28/23 20:21 Completed CV. echo complete* [id number] Routine Ultrasound 08/29/23 02:12 Completed Radiology Impressions Chest X-Ray 08/28/23 20:21 IMPRESSION: Interstitial prominence likely representing pulmonary edema in the setting of shortness of breath and fluid retention. Possible trace effusions. Laboratory Results WBC 6.50 10^3/uL (3.29-11.43) 09/01/23 05:32 RBC 3.92 10^6/uL (3.85-5.65) 09/01/23 05:32 Hgb 10.70 g/dL (11.27-16.99) L 09/01/23 05:32 Hct 33.3 % (37-53) L 09/01/23 05:32 MCV 84.9 fl (82-101) 09/01/23 05:32 MCH 27.3 pg (27-33) 09/01/23 05:32 MCHC 32.1 g/dL (30-55) 09/01/23 05:32 RDW 13.2 % (12.1-15.1) 09/01/23 05:32 Plt Count 298 10^3/cmm (157-399) 09/01/23 05:32 MPV 9.2 fL (7.4-10.4) 09/01/23 05:32 Neut % (Auto) 64.4 % 09/01/23 05:32 Lymph % (Auto) 20.8 % 09/01/23 05:32 [place] % (Auto) 10.8 % 09/01/23 05:32 Eos % (Auto) 2.0 % 09/01/23 05:32 Baso % (Auto) 0.5 % 09/01/23 05:32 Neut # (Auto) 4.19 10^3/uL (1.8-7.7) 09/01/23 05:32 Lymph # (Auto) 1.4 10^3/uL (0.8-4.8) 09/01/23 05:32 [place] # (Auto) 0.7 10^3/uL (0.2-0.9) 09/01/23 05:32 Eos # (Auto) 0.1 10^3/uL (0.0-0.8) 09/01/23 05:32 Baso # (Auto) 0.0 10^3/uL (0.0-0.1) 09/01/23 05:32 Nucleated RBC % (auto) 0 % 09/01/23 05:32 Nucleated RBCs # 0.0 /100WBC 09/01/23 05:32 Sodium 138 mmol/L (136-145) 09/01/23 05:32 Potassium 4.1 mmol/L (3.5-5.1) 09/01/23 05:32 Chloride 99 mmol/L (98-107) 09/01/23 05:32 Carbon Dioxide 27 mmol/L (22-29) 09/01/23 05:32 Anion Gap 16.1 (5-19) 09/01/23 05:32 BUN 56 mg/dL (8-23) H 09/01/23 05:32 Creatinine 3.8 mg/dL (0.7-1.2) H 09/01/23 05:32 GFR Calculation 16.3 mL/min (90-130) L 09/01/23 05:32 Glucose 95 mg/dL (65-115) 09/01/23 05:32 POC Glucose 109 mg/dL (70-110) 09/01/23 06:23 Calculated Osmolality 301 mOsm/kg (285-295) H 09/01/23 05:32 Lactic Acid 1.1 mmol/L (0.5-2.2) 08/28/23 20:49 Calcium 8.2 mg/dL (8.5-10.5) L 09/01/23 05:32 Phosphorus 6.0 mg/dL (2.5-4.5) H 08/29/23 02:26 Troponin T Baseline 66 ng/L (0-15) H 08/28/23 20:49 Troponin T 120 Minute 73.55 ng/L (0-15) H 08/28/23 23:20 Delta Troponin T 7.55 ABS# (0-10) 08/28/23 23:20 Troponin T Hi Sens 6Hr 74.15 ng/L (0-15) H 08/29/23 02:26 Troponin T Hi Sens 6Hr Delta 8.15 ng/L (0-12) 08/29/23 02:26 Albumin 3.6 g/dL (3.5-5.2) 08/29/23 02:26 Procalcitonin 0.36 ng/mL (0-0.5) 08/29/23 02:26 Urine Color Yellow (Yellow) 08/28/23 01:36 Urine Appearance Cloudy (CLEAR) A 08/28/23 01:36 Urine pH 5 (5-7) 08/28/23 01:36 Ur Specific [place] 1.020 (1.005-1.030) 08/28/23 01:36 Urine Protein 3+ (Negative) H 08/28/23 01:36 Urine Glucose (UA) 1+ (Normal) H 08/28/23 01:36 Urine Ketones Negative (Negative) 08/28/23 01:36 Urine Blood 2+ (Negative) H 08/28/23 01:36 Urine Nitrate Negative (Negative) 08/28/23 01:36 Urine Bilirubin Neg (Negative) 08/28/23 01:36 Urine Urobilinogen Neg mg/dL (Negative) 08/28/23 01:36 Ur Leukocyte Esterase Negative (Negative) 08/28/23 01:36 Urine RBC 0-4 /hpf (0-2) H 08/28/23 01:36 Urine WBC 0-4 /hpf (0-5) H 08/28/23 01:36 Ur Squamous Epith Cells 0-4 /hpf (0-5) H 08/28/23 01:36 Amorphous Sediment 1+ /hpf 08/28/23 01:36 Urine Bacteria 2+ /hpf (NONE) H 08/28/23 01:36 Hyaline Casts 0-4 /lpf H 08/28/23 01:36 Coarse Granular Casts 0-4 /lpf H 08/28/23 01:36 Urine Mucus 1+ /hpf 08/28/23 01:36 Vitals Last Vital Signs Temp 97.9 F 09/01/23 06:53 Pulse 88 09/01/23 06:53 Resp 17 09/01/23 06:53 BP 151/76 09/01/23 06:53 Pulse Ox 94 09/01/23 06:53 O2 Del Method Room Air 09/01/23 06:53 O2 Flow Rate 2 08/29/23 20:00 Discharge Plan Discharge Patient Disposition: Home Condition: Fair Prescriptions: New bumetanide 2 mg tablet 2 mg PO DAILY Qty: 60 8RF Rx Instructions: Bumex 2 mg twice a day for 3 days until 09/03 then take 2 mg daily potassium chloride 10 mEq tablet extended release 10 meq PO DAILY Qty: 60 0RF Rx Instructions: Only take with Bumex Continued (DME) prosthetic supplies See Rx Instructions .Route .MEDSUPPLY Qty: 1 0RF Rx Instructions: As directed (DME) prosthetic leg sleeve See Rx Instructions .Route .MEDSUPPLY Qty: 2 2RF Rx Instructions: As directed Humulin R U-500 (Conc) Kwikpen 500 unit/mL (3 mL) insulin pen See Rx Instructions .ROUTE .COMPLEX Qty: 6 0RF Dose Instruction: ADMINISTER 24 UNITS UNDER THE SKIN THREE TIMES DAILY PER SLIDING SCALE Rx Instructions: ADMINISTER 24 UNITS UNDER THE SKIN THREE TIMES DAILY PER SLIDING SCALE atorvastatin 10 mg tablet See Rx Instructions .ROUTE .COMPLEX Qty: 90 0RF Dose Instruction: TAKE 1 TABLET BY MOUTH DAILY Rx Instructions: TAKE 1 TABLET BY MOUTH DAILY (DME) FreeStyle Julius 2 Sensor Kit See Rx Instructions .ROUTE .COMPLEX Qty: 2 0RF Dose Instruction: APPLY 1 SENSOR AND CHANGE EVERY 14 DAYS Rx Instructions: APPLY 1 SENSOR AND CHANGE EVERY 14 DAYS nifedipine 30 mg Tablet Extended Release 24hr 60 mg PO DAILY Qty: 90 3RF Levemir FlexPen 100 unit/mL (3 mL) insulin pen See Rx Instructions .ROUTE .COMPLEX Qty: 15 2RF Dose Instruction: inject 24 units SUBCUTANEOUSLY IN THE MORNING AND 20 units IN THE EVENING Rx Instructions: inject 25 units SUBCUTANEOUSLY IN THE MORNING AND 25 units IN THE EVENING albuterol sulfate [Ventolin HFA] 90 mcg/actuation HFA aerosol inhaler 1 inh inhalation Q6H PRN (Reason: shortness of breath or wheezing) Qty: 8.5 0RF Changed hydralazine 25 mg tablet 50 mg PO BID Qty: 180 1RF metoprolol tartrate 25 mg tablet 50 mg PO BID Qty: 180 1RF Discontinued furosemide [Lasix] 40 mg tablet 40 mg PO DAILY Qty: 5 0RF azithromycin 250 mg tablet See Rx Instructions .ROUTE .COMPLEX Qty: 6 0RF Rx Instructions: For 250 mg dose pack: take 500 mg today (day 1), then 250 mg for 4 days (days 2-5) prednisone 20 mg tablet 20 mg PO BID 7 Days Qty: 14 0RF Discharge Orders: Discharge Order (Routine); Ordered 09/01/23 Ordered By: Woodrow Metzger Discharge Diet: Cardiac Discharge Activity: Increase activity as tolerated Patient Instructions: Opioid Safety Discharge Attestations Time Spent in Discharge Care*: greater than 30 min Status at Discharge: Cognitive status at discharge: cognitively intact, Behavioral status at discharge: cooperative, Quality Metrics Clinical Quality Measures [ No reported AMI, CVA or VTE this stay] Coding Level of Care Code Acute Code for Chg Fwd Diagnoses Acute kidney injury superimposed on chronic kidney disease N17.9; N18.9
[2023-09-01 11:17] VITALS: BP 163/76; PULSE 79; RESP 17; TEMP 36.8; O2SAT 94
[2023-09-01 11:36] LABS: Glucose Point of Care 224 mg/dL (70-110)
[2023-09-01] MEDS: insulin lispro 100 unit/1 mL SUBCUT (12:11)
[2023-09-01 12:36] VITALS: BP 163/76; PULSE 79; RESP 17; TEMP 36.8; O2SAT 94
== END 2023-09-01 12:37 | disposition home or self-care (01) | DRG 291 ==
LOC: ER 22:17 → MEDSURG 23:25 → ICU 08-29 02:50 → MEDSURG 08-31 13:07
PROVIDERS: Internal Medicine; Admitting Provider Student in an Organized Health Care Education/Training Program; Emergency Provider Emergency Medicine; PCP Nurse Practitioner Family; Visit Provider Internal Medicine
DX: I13.0 Hypertensive heart and chronic kidney disease with heart failure and stage 1 through stage 4 chronic kidney disease, or unspecified chronic kidney disease (principal); I50.33 Acute on chronic diastolic (congestive) heart failure; N17.9 Acute kidney failure, unspecified; N18.4 Chronic kidney disease, stage 4 (severe); E87.1 Hypo-osmolality and hyponatremia; E87.20 Acidosis, unspecified; I16.0 Hypertensive urgency; D63.1 Anemia in chronic kidney disease; E11.9 Type 2 diabetes mellitus without complications; Z79.4 Long term (current) use of insulin; E78.5 Hyperlipidemia, unspecified
CPT/HCPCS: 12345; 36415; 36416; 51702; 71045; 80048; 80069; 81001; 82962; 83605; 84145; 84484; 85025; 87086; 93005; 93306; 94640; 96372; 96374; 96375; 96376; 99285; J0360; J0696; J0885; J1644; J1815; J1940; Q0144; Q3014

== ENCOUNTER → 2023-09-08 11:40 | Outpatient (BNVA) | payer OTHER, SELFPAY | PROVIDERS: PCP Nurse Practitioner Family; Visit Provider Nurse Practitioner Family | DX: E11.65 Type 2 diabetes mellitus with hyperglycemia (principal); I10 Essential (primary) hypertension; R53.83 Other fatigue; I15.1 Hypertension secondary to other renal disorders; I50.9 Heart failure, unspecified | CPT/HCPCS: 80053; 80061; 83036; 83880; 85025 ==

== ENCOUNTER → 2023-11-02 09:24 | Outpatient (BNVA) | payer OTHER, MEDICARE, SELFPAY | PROVIDERS: PCP Nurse Practitioner Family; Visit Provider Registered Nurse | DX: I12.9 Hypertensive chronic kidney disease with stage 1 through stage 4 chronic kidney disease, or unspecified chronic kidney disease (principal); N18.4 Chronic kidney disease, stage 4 (severe) | CPT/HCPCS: 80069; 82043 ==

== ENCOUNTER → 2023-11-15 10:06 | Outpatient (BNVA) | payer OTHER, MEDICARE, SELFPAY | PROVIDERS: PCP Nurse Practitioner Family; Visit Provider Internal Medicine Cardiovascular Disease | DX: R07.9 Chest pain, unspecified (principal); I44.0 Atrioventricular block, first degree | CPT/HCPCS: 93005 ==

== ENCOUNTER → 2023-12-28 09:59 | Outpatient (BNVA) | payer OTHER, MEDICARE, SELFPAY | PROVIDERS: PCP Nurse Practitioner Family; Visit Provider Nurse Practitioner Family | DX: E11.65 Type 2 diabetes mellitus with hyperglycemia (principal); I15.1 Hypertension secondary to other renal disorders; I10 Essential (primary) hypertension | CPT/HCPCS: 80053; 80061; 82043; 83036; 83721 ==

== ENCOUNTER → 2024-01-28 10:41 | Outpatient (BNVA) | payer MEDICARE, SELFPAY | PROVIDERS: PCP Nurse Practitioner Family; Visit Provider Nurse Practitioner Family | DX: I12.9 Hypertensive chronic kidney disease with stage 1 through stage 4 chronic kidney disease, or unspecified chronic kidney disease (principal); N18.4 Chronic kidney disease, stage 4 (severe); E55.9 Vitamin D deficiency, unspecified | CPT/HCPCS: 80069; 82043; 82306; 82310; 83970; 85025 ==

== ENCOUNTER → 2024-02-17 16:21 | Outpatient (BNVA) | payer MEDICARE, SELFPAY | PROVIDERS: PCP Nurse Practitioner Family; Visit Provider Internal Medicine Cardiovascular Disease | DX: I50.31 Acute diastolic (congestive) heart failure (principal); I15.1 Hypertension secondary to other renal disorders | CPT/HCPCS: 99214 ==

== ENCOUNTER → 2024-03-28 13:42 | Outpatient (BNVA) | payer MEDICARE, SELFPAY | PROVIDERS: PCP Nurse Practitioner Family; Visit Provider Nurse Practitioner Family | DX: I13.0 Hypertensive heart and chronic kidney disease with heart failure and stage 1 through stage 4 chronic kidney disease, or unspecified chronic kidney disease (principal); I50.31 Acute diastolic (congestive) heart failure; N18.4 Chronic kidney disease, stage 4 (severe); R60.0 Localized edema; I15.1 Hypertension secondary to other renal disorders; E11.22 Type 2 diabetes mellitus with diabetic chronic kidney disease; Z79.4 Long term (current) use of insulin | CPT/HCPCS: 99213 ==

== ENCOUNTER → 2024-04-07 10:21 | Outpatient (BNVA) | payer MEDICARE, SELFPAY | PROVIDERS: PCP Nurse Practitioner Family; Visit Provider Nurse Practitioner Family | DX: I12.9 Hypertensive chronic kidney disease with stage 1 through stage 4 chronic kidney disease, or unspecified chronic kidney disease (principal); N18.4 Chronic kidney disease, stage 4 (severe) | CPT/HCPCS: 80069; 82043 ==

== ENCOUNTER → 2024-05-09 15:35 | Outpatient (BNVA) | payer MEDICARE, SELFPAY | PROVIDERS: PCP Nurse Practitioner Family; Visit Provider Nurse Practitioner Family | DX: I10 Essential (primary) hypertension (principal); E11.65 Type 2 diabetes mellitus with hyperglycemia | CPT/HCPCS: 80053; 80061; 83036 ==

== ENCOUNTER → 2024-05-15 07:46 | Outpatient (BNVA) | payer MEDICARE, SELFPAY | PROVIDERS: PCP Nurse Practitioner Family; Visit Provider Thoracic Surgery (Cardiothoracic Vascular Surgery) | DX: I96 Gangrene, not elsewhere classified (principal); L89.892 Pressure ulcer of other site, stage 2 | CPT/HCPCS: 97597; 99203 ==

== ENCOUNTER → 2024-07-26 10:37 | Outpatient (BNVA) | payer MEDICARE, SELFPAY | PROVIDERS: PCP Nurse Practitioner Family; Visit Provider Registered Nurse | DX: I12.9 Hypertensive chronic kidney disease with stage 1 through stage 4 chronic kidney disease, or unspecified chronic kidney disease (principal); N18.4 Chronic kidney disease, stage 4 (severe) | CPT/HCPCS: 80069; 82043 ==

== ENCOUNTER → 2024-11-17 09:56 | Outpatient (BNVA) | payer MEDICARE, SELFPAY | PROVIDERS: PCP Nurse Practitioner Family; Visit Provider Nurse Practitioner Family | DX: I10 Essential (primary) hypertension (principal); R53.83 Other fatigue | CPT/HCPCS: 80053; 80061; 83721; 84443; 85025 ==

== ENCOUNTER → 2024-11-22 08:42 | Outpatient (BNVA) | payer MEDICARE, SELFPAY | PROVIDERS: PCP Nurse Practitioner Family; Visit Provider Nurse Practitioner Family | DX: E11.65 Type 2 diabetes mellitus with hyperglycemia (principal) | CPT/HCPCS: 83036 ==

== ENCOUNTER 2024-12-05 10:40 | Inpatient (IN) | payer MEDICARE, SELFPAY ==
[2024-12-05] VITALS (14 sets, daily range): BP systolic 136–169; BP diastolic 71–90; PULSE 89–97; RESP 10–20; TEMP 36.7–38.2; O2SAT 93–100; BMI 38.4
--- OUTSIDE RECORDS SUMMARY | 2024-12-05 10:49 | XMS_ITS | Clinical Summary ---
Author Organization [facility] [email or web address], [facility] Address [address] [place] [address] Phone Care Team Providers Care Packager Name Role Phone Joan Corbinly MARK Primary Care Provider [phone] Allergies No known active allergies Medications aspirin (ST FARHANA) 81 MG EC tablet Take 81 mg by mouth 1 (one) time each day Active insulin aspart (NovoLOG) 100 UNIT/ML patient supplied pump Inject under the skin Sliding scale Active insulin detemir (LEVEMIR) 100 UNIT/ML injection Inject 28 Units under the skin 1 (one) time each day Active metoprolol tartrate 25 MG tablet Take 25 mg by mouth in the morning and 25 mg in the evening. Active hydrALAZINE 25 MG tablet Take 50 mg by mouth in the morning and 50 mg in the evening and 50 mg before bedtime. 4 Active amLODIPine (NORVASC) 10 MG tablet Take 10 mg by mouth in the morning and 10 mg in the evening. 4 Active dorzolamide-ti molol (COSOPT) 2-0.5 % ophthalmic solution instill ONE DROP IN THE RIGHT EYE TWICE DAILY 5 Active Basaglar KwikPen 100 UNIT/ML injection INJECT 24 UNITS SUBCUTANEOUSLY IN THE EVENING 4 Active bumetanide (BUMEX) 2 MG tablet Take 2 tablets (4 mg total) by mouth 1 (one) time each day 180 tablet 3 5 Active Active Problems Problem Noted Date Diagnosed Date Hypercalcemia 01/31/2024 Hypertensive chronic kidney disease with stage 1 through stage 4 chronic kidney disease, or unspecified chronic kidney disease 10/31/2023 Type 2 diabetes mellitus with diabetic nephropat hy 10/31/2023 Vitamin D deficiency 04/21/2022 Chronic kidney disease, stage 4 (severe) 022 Acute nontraumatic kidney injury 10/16/2021 Essential (primary) hypertension 10/16/2021 Resolved Problems Problem Noted Date Diagnosed Date Resolved Date Uncontrolled type 2 diabetes mellitus 10/16/2021 10/31/2023 Overview (12/07/2023): Replacing diagnoses that were inactivated after the 12/07/23 Regulatory Import Family History Medical History Relation Comments Hypertension Father Diabetes Mother Hypertension Mother Relation Status Comments Father Alive Mother Alive Social History Tobacco Use Types Packs/Day Years Used Date Smoking Tobacco: Never Smokeless Tobacco: Never Tobacco Cessation:Counseling Given: Not Answered Alcohol Use Standard Drinks/Week Comments Not Currently 0 (1 standard drink = 0.6 oz pur e alcohol) Sex and Gender Information Value Date Recorded Sex Assigned at Not on file Legal Sex Male 10:17 AM EDT Gender Identity Not on file Sexual Orientation Not on file Last Filed Vital Signs Vital Sign Reading Time Taken Comments Blood Pressure 150/80 08/07/2024 9:01 AM CDT Pulse 63 08/07/2024 9:01 AM CDT Temperature - - Respiratory Rate - - Oxygen Saturation 98% 08/07/2024 9:01 AM CDT Inhaled Oxygen Concentration - - Weight 120 kg (264 lb 3.2 oz) 08/07/2024 9:01 AM CDT Height 175.3 cm (5' 9 ) 08/07/2024 9:01 AM CDT Body Mass Index 39.02 08/07/2024 9:01 AM CDT Plan of Treatment Upcoming Encounters Date Type Department Care Team (Late st Contact Info) Description 12/18/2024 11:30 AM CDT Office Visit [facility] [address] [place] [address] Silvia Conner, KAITLYNN [address] [facility] [address] [place] [id number] Health Maintenance Due Date Last Done Comments Pneumococcal Vaccine: 50+ Ye ars (1 of 2 - PCV) 1982 Colorectal Cancer Screening: Annual FOBT 02/20/2012 Colorectal Cancer Screening: Colonoscopy 02/20/2012 Colorectal Cancer Screening: Sigmoidoscopy 02/20/2012 Diabetes: Ophthalmology Exam 10/16/2021 Diabetes: Pedal Pulse Checked 10/16/2021 Diabetes: Sensory Foot Exam 10/16/2021 Diabetes: Visual Foot Exam 10/16/2021 Diabetes: Hemoglobin A1C 02/12/2023 11/13/2022 Influenza Vaccine (#1) 2024 Hepatitis B Vaccine Aged Out No longe r eligible based on patient's age to complete this topic Procedures Procedure Name Priority Date/Time Associated Diagnosis Comments HEMOGLOBIN A1C (EXTERNAL RESULT ENTRY) Routine 11/13/2022 10:33 AM CDT from Last 3 Months or Most Recently Relevant to Health Maintenance Results * Hemoglobin A1C (11/13/2022 10:33 AM CDT) Hemoglobin A1C 11.0 Blood specimen (specimen) Venous blood / Unknown 11/13/2022 10:33 AM CDT Rose Martinez MA - 12/11/2022 3:57 PM CDT [facility] [address] [place] [address] Dr. Klaus Adames, Hydraulic Chair Assembler [facility] External Provider LAB BLOOD ORDERABLES Final Result from Last 3 Months or Most Recently Relevant to Health Maintenance Insurance Care Teams Packager Relationship Specialty Start Date End Date Sarika [place] [address] PCP - General Internal Medicine 10/16/21
--- OUTSIDE RECORDS SUMMARY | 2024-12-05 10:49 | XMS_ITS | Encounter Summary ---
Author Organization [facility], [facility] Address [address] [facility] [address] [place] [address] Phone Care Team Providers Care Service Desk Director Name Role Phone Sarika Corbin Primary Care Provider [phone] Encounter Details Date Type Department Care Team (Late st Contact Info) Description 05/29/2021 Orders Only [facility] [address] [facility] [address] [place] [address] Acute kidney failure, not otherwise specified (HCC); Stage 3b chronic kidney disease (HCC) Social History Tobacco Use Types Packs/Day Years Used Date Smoking Tobacco: Never Assessed Sex and Gender Information Value Date Recorded Sex Assigned at Not on file Legal Sex Male 10:17 AM EDT Gender Identity Not on file Sexual Orientation Not on file documented as of this encounter Plan of Treatment Upcoming Encounters Date Type Department Care Team (Late st Contact Info) Description 12/18/2024 11:30 AM CDT Office Visit [facility], [facility] [address] [place] [address] Silvia Conner STAFF TOXICOLOGIST [address] [place] [address] documented as of this encounter Visit Diagnoses Diagnosis Acute kidney failure, not otherwise specified (HCC) Stage 3b chronic kidney disease (HCC) documented in this encounter Care Teams Service Desk Director Relationship Specialty Start Date End Date Sarika Corbin FNP [address] [place] [address] PCP - General Internal Medicine 10/16/21 documented as of this encounter
--- OUTSIDE RECORDS SUMMARY | 2024-12-05 10:49 | XMS_ITS | Clinical Summary ---
Author Organization [facility] Address [address] [facility] [address] Dr[address] Guerreron: Epic Prelude ADT [place] [address] Care Team Providers Care Bank Manager Name Role Phone Sarika Corbin Primary Care Provider Allergies No known active allergies Medications ferrous sulfate 325 mg (65 mg iron) tablet Take 325 mg by mouth daily. Active furosemide (LASIX) 20 mg tablet Take 20 mg by mouth daily. Active hydrALAZINE (APRESOLINE) 10 mg tablet Take 10 mg by mouth 3 times daily. Active insulin detemir (LEVEMIR U-100 INSULIN SUBCUT) Inject 17 Units by subcutaneous injection 2 times daily. Active INSULIN LISPRO SUBCUT Inject by subcutaneous injection. Sliding scale maximum 10 units in a day Active lisinopriL (PRINIVIL) 20 mg tablet Take 20 mg by mouth daily. Active metoclopramide HCl (REGLAN) 5 mg tablet Take 5 mg by mouth daily. Active metoprolol tartrate (LOPRESSOR) 25 mg tablet Take 25 mg by mouth 2 times daily. Active ondansetron (ZOFRAN) 4 mg Tablet Take 4 mg by mouth every 6 hours as needed for Nausea/Emesis. Active oxyCODONE IR (OXY-IR) 5 mg Capsule Take by mouth 3 times daily. Active sennosides-docu sate sodium (SENNA-S) 8.6-50 mg tablet Take 1 Tablet by mouth daily. Active sodium bicarbonate 650 mg tablet Take 650 mg by mouth 3 times daily. Active pantoprazole (PROTONIX) 40 mg Tablet, Delayed Release (E.C.) Take 40 mg by mouth 2 times daily. Active albuterol sulfate 90 mcg/Actuation inhaler Take 1 Puff by inhalation every 6 hours as needed for Shortness of Breath. Active aspirin (ECOTRIN EC) 81 mg Tablet, Delayed Release (E.C.) Take 81 mg by mouth daily. Active exenatide (BYETTA) 10 mcg/0.04 mL Pen Injector Inject 10 mcg by subcutaneous injection daily. Active empagliflozin (JARDIANCE) 10 mg tablet Take 10 mg by mouth daily in the morning. Active metFORMIN (GLUCOPHAGE) 1,000 mg tablet Take 2,000 mg by mouth daily with breakfast. Active cephALEXin (KEFLEX) 500 mg capsule Take 1 Capsule (500 mg) by mouth 4 times daily. Active insulin detemir U-100 (LEVEMIR) 100 unit/mL pen syringe Inject 50 Units by subcutaneous injection daily with breakfast. 8 Active aspirin (IAN) 325 mg tablet Take 325 mg by mouth daily. Active lisinopriL (PRINIVIL) 2.5 mg tablet Take 2.5 mg by mouth daily. Active multivitamin (DAILY-PREMA) tablet Take 1 Tablet by mouth daily. 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 DRILLER HELPER Gender Identity Not on file Sexual Orientation Not on file Last Filed Vital Signs Vital Sign Reading Time Taken Comments Blood Pressure 170/92 05/07/2021 9:00 PM DIAMOND DRILLER HELPER Pulse 95 05/07/2021 9:00 PM DIAMOND DRILLER HELPER Temperature 36.4 C (97.6 F) 05/07/2021 4:57 PM DIAMOND DRILLER HELPER Respiratory Rate 14 05/07/2021 9:00 PM DIAMOND DRILLER HELPER Oxygen Saturation 93% 05/07/2021 9:00 PM DIAMOND DRILLER HELPER Inhaled Oxygen Concentration - - Weight 106.1 kg (233 lb 12.8 oz) 05/07/2021 4:57 PM DIAMOND DRILLER HELPER Height 175.3 cm (5' 9 ) 05/07/2021 4:57 PM DIAMOND DRILLER HELPER Body Mass Index 34.53 05/07/2021 4:57 PM DIAMOND DRILLER HELPER Plan of Treatment Health Maintenance Due Date Last Done Comments DIABETES ANNUAL FOOT EXAM 1981 DIABETES ANNUAL RETINAL EXAM 1981 DIABETES MICROALBUMIN ANNUAL SCREEN 1981 LDL CHOLESTEROL ANNUAL 1981 DTAP/TDAP/TD VACCINES (1 - Tdap) 1982 COLORECTAL SCREENING 02/20/2008 Colorectal Cancer Screening 02/20/2008 FIT-DNA Q 3 years 02/20/2008 FIT/FOBT Q 1 year 02/20/2008 Flex Sig/CT Colonography Q 5 years 02/20/2008 ZOSTER VACCINE (1 of 2) 2013 RSV VACCINE (60+ or ) (1 - Risk 60-74 years 1-dose series) 2023 DIABETES HBA1C Q 6 MONTHS 05/14/2023 11/13/2022 INFLUENZA VACCINE (#1) 2024 [facility] Care Teams Bank Manager Relationship Specialty Start Date End Date Sarika Corbin FNP [address] [place] [id number] PCP - General Nurse Practitioner Family 10/28/20
--- NOTE | 2024-12-05 10:52 | XRR_ITS ---
PROCEDURE INFORMATION: Exam: XR Right Foot Exam date and time: 12/05/2024 10:56 AM Age: 59 years old Clinical indication: With right foot pain and swelling. Patient states bottom of foot has redness. ; Additional info: Infection on bottom of foot TECHNIQUE: Imaging protocol: Radiologic exam of the right foot. Views: 3 or more views. COMPARISON: CR XR foot RT min 3V* [id number] 01/04/2020 2:54 PM FINDINGS: Bones/joints: Amputation changes of the 4th ray. Possible mild destructive change of the distal 2nd digit. Osteomyelitis not excluded. . Soft tissues: Normal. XR/XR foot RT min 3V* [id number] IMPRESSION: Possible mild destructive change of the distal 2nd digit. Osteomyelitis not excluded
--- NOTE | 2024-12-05 10:54 | W.ED.EXTPRO ---
HPI - Extremity Problem General: Chief complaint: Extremity Problem,Nontraumatic Stated complaint: wound on R foot, pain, swelling Time Seen by Provider: 12/05/24 10:48 History of Present Illness: 59-year-old man with a history of diabetes,, chronic kidney disease, congestive heart failure, previous toe amputations, left BKA, hypertension, osteomyelitis, diabetic peripheral neuropathy, hyperlipidemia who presents the emergency room with concern for a wound on the bottom of his foot and some redness on his werner. Unclear how long this been going on. No fevers. No altered mental status. No chest pain. No abdominal pain. No nausea or vomiting. Related Data Home Medications ?Medication ?Instructions ?Recorded ?Confirmed amlodipine 10 mg tablet 10 mg PO BID 12/05/24 12/05/24 insulin regular hum U-500 conc 500 24 unit SUBCUT TID 12/05/24 12/05/24 unit/mL(3 mL) subcut pen (Humulin R U-500 (Conc) Insulin Kwikpen) metoprolol tartrate 25 mg tablet 25 mg PO BID 12/05/24 12/05/24 Previous Rx's ?Medication ?Instructions ?Recorded prosthetic leg sleeve #2 ea 11/11/23 prosthetic supplies #1 ea 11/11/23 bumetanide 2 mg tablet 2 mg PO DAILY #90 tabs 05/15/24 hydralazine 50 mg tablet 50 mg PO TID #90 tabs 11/17/24 insulin glargine 100 unit/mL (3 24 unit (0.24 mL) SUBCUT BID #15 mL 11/17/24 mL) subcutaneous pen (Lantus Solostar U-100 Insulin) prosthetic sleeve and liners #1 ea 11/17/24 flash glucose sensor (FreeStyle #2 kits 11/20/24 Julius 2 Sensor kit) ezetimibe 10 mg tablet (Zetia) 10 mg PO DAILY #30 tabs 11/22/24 Allergies Allergy/AdvReac Type Severity Reaction Status Date / Time No Known Allergies Allergy Verified 11/22/24 08:16 Review of Systems Narrative: Constitutional symptoms: Negative except as documented in HPI. Skin symptoms: Negative except as documented in HPI. Eye symptoms: Negative except as documented in HPI. ENMT symptoms: Negative except as documented in HPI. Respiratory symptoms: Negative except as documented in HPI. Cardiovascular symptoms: Negative except as documented in HPI. Gastrointestinal symptoms: Negative except as documented in HPI. Genitourinary symptoms: Negative except as documented in HPI. Musculoskeletal symptoms: Negative except as documented in HPI. Neurologic symptoms: Negative except as documented in HPI. Psychiatric symptoms: Negative except as documented in HPI. Endocrine symptoms: Negative except as documented in HPI. PFS ED PFSH: Medical History (Updated 12/05/24 @ 13:41 by Kajal Alvarez MD) Pulmonary edema Hypertension Diabetes type 2, uncontrolled Acute hypoxic respiratory failure Hyponatremia Acute kidney injury superimposed on chronic kidney disease Acute decompensated heart failure Fluid overload Hyperlipidemia Poorly fitting prosthesis for below knee amputation (BKA) Contrast-induced nephropathy Hypertensive crisis Need for dental care Migraine Intractable vomiting Acute on chronic kidney failure Hypertensive urgency Hyperosmolar hyperglycemic state (HHS) DKA (diabetic ketoacidosis) Prosthesis fitting Hypokalemia Hypertensive urgency Microscopic hematuria Nausea and vomiting Diabetes mellitus with gastroparesis Osteomyelitis Contrast dye induced nephropathy Acute renal failure superimposed on stage 3b chronic kidney disease Peripheral arterial disease Acquired rearfoot varus Diabetic peripheral neuropathy associated with type 2 diabetes mellitus 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 Chronic renal impairment Hyperlipidemia associated with type 2 diabetes mellitus Statin intolerance Foot abscess, left Diabetic foot infection Essential hypertension Hyperlipidemia, mixed Surgical History S/P hemodialysis catheter insertion S/P BKA (below knee amputation) (04/05/21) History of partial amputation of toe of right foot History of amputation of lesser toe Amputated toe of right foot secondary to osteomyelitis 4th right toe Family History Father Diabetes Mother Diabetes Other Hypertension Social History Smoking and tobacco/nicotine status: never used tobacco/nicotine Second hand smoke exposure: No Alcohol intake: former Substance/Drug Use: never Adopted: No Caregiver/support person: No Lives independently: Yes Household members: spouse Housing: House Marital status: service: No Current occupational status: employed Pets and animals: Yes Do you think of yourself as: Straight/Heterosexual Current gender identity: Male Physical Exam Narrative: EXAM NARRATIVE: General: Alert, no acute distress. Skin: Warm, dry. Head: Normocephalic, atraumatic. Neck: Supple, trachea midline. Eye: Extraocular movements are intact. Ears, nose, mouth and throat: mucosa moist. Cardiovascular: Regular, Normal peripheral perfusion. Respiratory: Lungs are clear to auscultation, respirations are non-labored, breath sounds are equal, Symmetrical chest wall expansion. Gastrointestinal: Soft, Nontender, Non distended Musculoskeletal: Left BKA. Partial right toe amputations and some foot amputation. On the bottom of the foot there is an area that appears to be an abscess. Also has some redness on the werner with some skin peeling. Neurological: Alert and oriented, No focal neurological deficit observed. Psychiatric: Cooperative, appropriate mood & affect. Course Vital Signs: Vital signs: Vital Signs Temperature 98.1 F 12/05/24 10:50 Pulse Rate 91 12/05/24 12:15 Respiratory Rate 20 H 12/05/24 10:50 Blood Pressure 167/76 12/05/24 12:15 Pulse Oximetry 95 12/05/24 12:15 Oxygen Delivery Me thod Room Air 12/05/24 12:15 MDM - Extremity (Nontraumatic) Medical Decision Making Medical decision making: Differential diagnosis including but not limited to and based on the above HPI, review of systems and physical exam: In this patient with a lesion on the bottom of his foot would have concern for abscess and osteomyelitis. Orders placed to evaluate differential diagnosis based on the above differential, HPI and physical exam Lab Review: Laboratory results were reviewed and interpreted by myself the emergency room physician. Leukocytosis, anemia, slight worsening of his chronic renal failure with a BUN and creatinine of 60 and 5.1. ESR is elevated at 41. CRP is very elevated at 214. Glucose is elevated at over 300 initially and 216 on his labs. Fluids and insulin were given X-ray of the right foot: Possible mild destructive change of the second digit. Possible osteomyelitis not excluded. This was reviewed and interpreted by myself the emergency room physician. I also reviewed the radiology report. I reviewed the patient's medical record. 59-year-old man with a history of diabetes,, chronic kidney disease, congestive heart failure, previous toe amputations, left BKA, hypertension, osteomyelitis, diabetic peripheral neuropathy, hyperlipidemia Reexamination: Patient remained stable. No increased work of breathing. No altered mental status. No focal motor deficits. Consultation: I spoke with Dr. Shaffer who is on-call for podiatry and who has follow-up with this patient in the past who saw the patient emergency room took cultures and may take the patient to the OR later. He recommended an MRI now Consultation: I spoke with Dr. Connors who is on-call for the hospitalist service who agrees to admission. Assessment and plan: Diabetic foot infection Hyperglycemia Acute on chronic renal insufficiency ?IV Zyvox and cefepime. Normal saline bolus. IV insulin. -I discussed the patient with the hospitalist on-call who is admitting the patient. - Discussed findings and plan with patient. Answered any questions. - All laboratory values were reviewed and interpreted personally by myself, the ER physician - All imaging was reviewed and interpreted personally by myself, the ER physician. - Evaluation and treatment of this problem were appropriate in the emergency setting Lab Data 12/05/24 11:10 12/05/24 11:10 Radiology Impressions Foot X-Ray 12/05/24 10:52 IMPRESSION: Possible mild destructive change of the distal 2nd digit. Osteomyelitis not excluded Laboratory Results WBC 20.02 10^3/uL (3.29-11.43) H 12/05/24 11:10 RBC 3.24 10^6/uL (3.85-5.65) L 12/05/24 11:10 Hgb 9.00 g/dL (11.27-16.99) L 12/05/24 11:10 Hct 28.8 % (37-53) L 12/05/24 11:10 MCV 88.9 fl (82-101) 12/05/24 11:10 MCH 27.8 pg (27-33) 12/05/24 11:10 MCHC 31.3 g/dL (30-55) 12/05/24 11:10 RDW 13.2 % (12.1-15.1) 12/05/24 11:10 Plt Count 301 10^3/cmm (157-399) 12/05/24 11:10 MPV 9.9 fL (7.4-10.4) 12/05/24 11:10 Neut % (Auto) 88.8 % 12/05/24 11:10 Lymph % (Auto) 4.2 % 12/05/24 11:10 Antelope % (Auto) 6.2 % 12/05/24 11:10 Eos % (Auto) 0.0 % 12/05/24 11:10 Baso % (Auto) 0.2 % 12/05/24 11:10 Neut # (Auto) 17.76 10^3/uL (1.8-7.7) H 12/05/24 11:10 Lymph # (Auto) 0.9 10^3/uL (0.8-4.8) 12/05/24 11:10 Antelope # (Auto) 1.3 10^3/uL (0.2-0.9) H 12/05/24 11:10 Eos # (Auto) 0.0 10^3/uL (0.0-0.8) 12/05/24 11:10 Baso # (Auto) 0.0 10^3/uL (0.0-0.1) 12/05/24 11:10 Nucleated RBC % (auto) 0 % 12/05/24 11:10 Nucleated RBCs # 0.0 /100WBC 12/05/24 11:10 ESR 41 mm/hr (0-10) H 12/05/24 11:10 Sodium 134 mmol/L (136-145) L 12/05/24 11:10 Potassium 3.8 mmol/L (3.5-5.1) 12/05/24 11:10 Chloride 98 mmol/L (98-107) 12/05/24 11:10 Carbon Dioxide 19 mmol/L (22-29) L 12/05/24 11:10 Anion Gap 20.8 (5-19) H 12/05/24 11:10 BUN 60 mg/dL (8-23) H 12/05/24 11:10 Creatinine 5.1 mg/dL (0.7-1.2) H 12/05/24 11:10 GFR Calculation 11.6 mL/min (90-130) L 12/05/24 11:10 Glucose 216 mg/dL (65-115) H 12/05/24 11:10 POC Glucose 70 mg/dL (70-110) 12/05/24 13:31 Calculated Osmolality 301 mOsm/kg (285-295) H 12/05/24 11:10 Lactic Acid 1.5 mmol/L (0.5-2.2) 12/05/24 11:10 Calcium 8.6 mg/dL (8.5-10.5) 12/05/24 11:10 Total Bilirubin 0.4 mg/dL (0.15-1.2) 12/05/24 11:10 AST 11 U/L (0-40) 12/05/24 11:10 ALT 9 U/L (0-41) 12/05/24 11:10 Alkaline Phosphatase 75 U/L (40-130) 12/05/24 11:10 C-Reactive Protein 214.6 mg/L (0.0-4.9) H 12/05/24 11:10 Total Protein 6.9 g/dL (6.6-8.7) 12/05/24 11:10 Albumin 3.2 g/dL (3.5-5.2) L 12/05/24 11:10 Globulin 3.7 g/dL (1.3-4.6) 12/05/24 11:10 All radiology interpretation(s) finalized by discharge Discharge Plan Discharge Patient Disposition: Admitted As Inpatient Clinical Impression: Diabetic foot infection, Hyperglycemia, Acute on chronic renal insufficiency Condition: Stable Coding Level of Care Code ED Audit Director for Paula Ho
--- NOTE | 2024-12-05 11:02 | MRR_ITS ---
PROCEDURE INFORMATION: Exam: MR Right Lower Extremity Other Than Joint Without Contrast; Foot Exam date and time: 12/05/2024 1:04 PM Age: 59 years old Clinical indication: With right foot pain and swelling. Patient states bottom of foot has redness. ; Additional info: Possible osteomyelitis TECHNIQUE: Imaging protocol: Magnetic resonance imaging of the right lower extremity without contrast. Exam focused on the foot. COMPARISON: CR XR foot RT min 3V* [id number] 12/05/2024 10:56 AM FINDINGS: Bones/joints: There is no joint effusion. There is no abnormal reactive marrow edema appreciated within the midfoot or hindfoot. There is an old healed fracture of the proximal metadiaphysis of the 5th metatarsal. There has been prior transmetatarsal amputation of the 4th digit. This study did not include and adequately evaluate the middle and distal phalanges of the forefoot. LIGAMENTS: Lisfranc ligament: Unremarkable. No evidence of tear. TENDONS: Flexor tendons of foot: Unremarkable. No evidence of tear. Tibialis posterior tendon: Unremarkable as visualized. Peroneal tendons: Unremarkable as visualized. Extensor tendons of foot: Unremarkable. No evidence of tear. Tibialis anterior tendon: Unremarkable as visualized. Tarsal canal (Sinus tarsi): Unremarkable. Tarsal tunnel: Unremarkable. Soft tissues: There is mild intramuscular edema throughout the plantar musculature. There is mild dorsal subcutaneous midfoot soft tissue edema. There is no drainable fluid collection appreciated. There is mild skin thickening and possible wound or blister in the plantar midfoot. Plantar fascia: Unremarkable as visualized. MR/MR foot RT wo con* [id number] IMPRESSION: 1. Intramuscular edema and dorsal subcutaneous soft tissue edema. This is not specific. This can be seen with bland edema however infectious myositis or cellulitis is within the differential 2. Plantar soft tissue wound or blister. Again there is no underlying drainable fluid collection. 3. As compared to radiograph today, the forefoot is not adequately evaluated and specifically the middle and distal phalanx of the 2nd digit are not evaluated as the images included are of the hindfoot and midfoot primarily.
[2024-12-05] MEDS: insulin regular-human 100 units/1 mL 10 UNIT IVP (11:31)
[2024-12-05 11:35] LABS: Hematocrit 28.8 % (37-53); Hemoglobin 9.00 g/dL (11.27-16.99); Mean Corpuscular HGB Conc 31.3 g/dL (30-55); Mean Corpuscular Hemoglobin 27.8 pg (27-33); Mean Corpuscular Volume 88.9 fl (82-101); Nucleated Red Blood Cells % 0 %; Platelet Count 301 10^3/cmm (157-399); Red Blood Count 3.24 10^6/uL (3.85-5.65); White Blood Count 20.02 10^3/uL (3.29-11.43)
--- NOTE | 2024-12-05 11:50 | PM.CONSULT ---
Providers/Reason For Consult Consulting Physician/Specialty*: Trace Shaffer D.P.M./podiatry Reason for Consult*: Diabetic ulcer right foot with cellulitis Primary Care Provider: MARK Kilpatrick History of Present Illness History of Present Illness Martir Kruger is a 59 year old male presents with streaking cellulitis of the right foot originating from a diabetic ulcer of the right foot that began last week he states over the weekend he experienced worsening of symptoms, he had clindamycin on hand from a right second toe wound prescribed by primary care and started taking clindamycin on Wednesday he noticed increased redness streaking up to his leg. Endorses fevers and chills. History of left below-knee amputation secondary to diabetic infection. Accompanied by his . Review of Systems General: Reports: 10 or more systems reviewed and unremarkable except in HPI and below Const: Denies: fever(s) or chills Eyes: Denies: change in vision Card: Denies: chest pain or palpitations Resp: Denies: dyspnea or productive cough GI: Denies: abdominal pain, nausea or vomiting : Denies: flank pain Musc: Reports: extremity swelling, joint stiffness and deformity Skin/Breast: Reports: erythema, sores, changes in skin color, dry skin, nail changes and change in hair Neuro: Reports: numbness in extremities, sensory changes and difficulty walking Psych: Denies: suicidal ideation Endo: Denies: change in body appearance David/Lymph: Denies: tender lymph nodes Medications/Allergies Home Medications ?Medication ?Instructions ?Recorded ?Confirmed ?Last Taken ?Type prosthetic leg sleeve #2 ea 11/11/23 12/05/24 Unknown Rx prosthetic supplies #1 ea 11/11/23 12/05/24 Unknown Rx bumetanide 2 mg tablet 2 mg PO DAILY #90 tabs 05/15/24 12/05/24 12/05/24 Rx hydralazine 50 mg tablet 50 mg PO TID #90 tabs 11/17/24 12/05/24 12/05/24 Rx insulin glargine 100 unit/mL (3 24 unit (0.24 mL) SUBCUT BID #15 mL 11/17/24 12/05/24 12/05/24 Rx mL) subcutaneous pen (Lantus Solostar U-100 Insulin) prosthetic sleeve and liners #1 ea 11/17/24 12/05/24 Unknown Rx flash glucose sensor (FreeStyle #2 kits 11/20/24 12/05/24 Unknown Rx Julius 2 Sensor kit) ezetimibe 10 mg tablet (Zetia) 10 mg PO DAILY #30 tabs 11/22/24 12/05/24 12/05/24 Rx amlodipine 10 mg tablet 10 mg PO BID 12/05/24 12/05/24 12/05/24 History insulin regular hum U-500 conc 500 24 unit SUBCUT TID 12/05/24 12/05/24 12/05/24 History unit/mL(3 mL) subcut pen (Humulin R U-500 (Conc) Insulin Kwikpen) metoprolol tartrate 25 mg tablet 25 mg PO BID 12/05/24 12/05/24 12/05/24 History Allergies Allergy/AdvReac Type Severity Reaction Status Date / Time No Known Allergies Allergy Verified 11/22/24 08:16 Current Medications Generic Name Dose Route Start Last Admin Trade Name Freq PRN Reason Stop Dose Admin Sodium Chloride 1,000 mls @ 999 mls/hr 12/05/24 10:54 12/05/24 11:29 Sodium Chloride 0.9% IV 12/05/24 11:54 999 mls/hr .Q1H1M ONE Administration PFSH Acute PFSH: Medical History (Updated 12/05/24 @ 12:28 by Trace Shaffer DPM) Pulmonary edema Hypertension Diabetes type 2, uncontrolled Acute hypoxic respiratory failure Hyponatremia Acute kidney injury superimposed on chronic kidney disease Acute decompensated heart failure Fluid overload Hyperlipidemia Poorly fitting prosthesis for below knee amputation (BKA) Contrast-induced nephropathy Hypertensive crisis Need for dental care Migraine Intractable vomiting Acute on chronic kidney failure Hypertensive urgency Hyperosmolar hyperglycemic state (HHS) DKA (diabetic ketoacidosis) Prosthesis fitting Hypokalemia Hypertensive urgency Microscopic hematuria Nausea and vomiting Diabetes mellitus with gastroparesis Osteomyelitis Contrast dye induced nephropathy Acute renal failure superimposed on stage 3b chronic kidney disease Peripheral arterial disease Acquired rearfoot varus Diabetic peripheral neuropathy associated with type 2 diabetes mellitus 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 Chronic renal impairment Hyperlipidemia associated with type 2 diabetes mellitus Statin intolerance Foot abscess, left Diabetic foot infection Essential hypertension Hyperlipidemia, mixed Surgical History S/P hemodialysis catheter insertion S/P BKA (below knee amputation) (04/05/21) History of partial amputation of toe of right foot History of amputation of lesser toe Amputated toe of right foot secondary to osteomyelitis 4th right toe Family History Father Diabetes Mother Diabetes Other Hypertension Social History Smoking and tobacco/nicotine status: never used tobacco/nicotine Second hand smoke exposure: No Alcohol intake: former Substance/Drug Use: never Adopted: No Caregiver/support person: No Lives independently: Yes Household members: spouse Housing: House Marital status: service: No Current occupational status: employed Pets and animals: Yes Do you think of yourself as: Straight/Heterosexual Current gender identity: Male Vitals/I&O/Wt Last Vital Signs Temp 98.1 F 12/05/24 10:50 Pulse 90 12/05/24 11:34 Resp 20 H 12/05/24 10:50 BP 158/75 12/05/24 10:50 Pulse Ox 96 12/05/24 11:34 O2 Del Method Room Air 12/05/24 11:34 Weight last 48 hrs Weight 260 lb Physical Exam Narrative: GENERAL: Patient is alert and oriented ?3 and in no acute distress. The following is a focused right lower extremity exam. VASCULAR: Right dorsalis pedis and posterior tibial arteries are palpable. Capillary refill less than 3 seconds right great toe. Warmth right foot and anterior leg. Decreased pedal hair growth to the right lower extremity. Increased focal edema to the right second toe. NEUROLOGICAL: Protective sensation intact 0/10 sites, tested with [place] V[place] monofilament to right lower extremity. DERMATOLOGICAL: Wound probes to muscle/deep fascia at the right plantar midfoot with surrounding erythema devitalized base and hyperkeratotic rim, lymphangitic streaking and cellulitis to the lower one third of the anterior right leg. Erythema to the right second toe without wound. 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 History of left below-knee amputation, ambulates with prosthetic. No crepitus with soft tissue palpation right foot and ankle. Metatarsus adductus deformity to the right foot. Right forefoot varus deformity. Data 12/05/24 11:10 12/05/24 11:10 Micro: Microbiology 12/05/24 11:24 Blood Culture - Preliminary Blood SPECIMEN COLLECTED 12/05/24 11:10 Blood Culture - Preliminary Blood SPECIMEN COLLECTED A&P Assessment and plan 1. CKD stage 4 secondary to hypertension: 2. Uncontrolled type 2 diabetes mellitus with hyperglycemia: 3. Acute diastolic congestive heart failure: 4. Neuropathic ulcer of right foot with necrosis of muscle: PROCEDURE: Full thickness wound debridement Location: Right plantar foot Local Anesthesia: none due to neuropathy Consent: Verbal Sterile Prep: with alcohol Details: Full thickness sharp debridement of the wound was performed using sterile dermal curette. The wound was debrided of hyperkeratotic rim and devitalized and fibrotic tissue down to muscle/fascia, being the deepest level of debridement. Predebridement measurements: 4 mm x 4 mm x 4 mm Postdebridement measurements: 2.8 cm x 3.2 cm x 0.4 cm Hemostasis: Pressure Irrigation: sterile saline Dressing: Betadine wet-to-dry Estimated Blood Loss: minimal Offloading: Nonweightbearing 5. Cellulitis of right foot: Plan: 59-year-old insulin-dependent diabetic male presents with new onset of right foot ulcer exposed to myofascial layer with streaking to the leg, wound is 1 week in duration. Leukocytosis with fever and chills, patient admitted to hospital service Empiric IV antibiotics dosed for renal function Performed wound debridement of the right foot wound in the emergency department postdebridement wound cultures taken and sent to microbiology, dressing Betadine wet-to-dry. Nonweightbearing right foot. X-ray right foot 3 views shows erosive destructive changes at the distal phalanx of the right second toe consistent with osteomyelitis as well as a nondisplaced intra-articular fracture of the base of the right second proximal phalanx. Stable postoperative changes at the right fourth ray amputation. Metatarsus adductus and forefoot varus deformities. MRI right foot pending Patient to remain n.p.o. Podiatry will follow. PDMP PDMP Reviewed: Not Reviewed Coding Level of Care Code Acute Code for Chg Fwd Diagnoses CKD stage 4 secondary to hypertension I12.9; N18.4 Uncontrolled type 2 diabetes mellitus with hyperglycemia E11.65 Glycemic state: with hyperglycemia Acute diastolic congestive heart failure I50.31 Heart failure type: diastolic Heart failure chronicity: acute Neuropathic ulcer of right foot with necrosis of muscle L97.513 Cellulitis of right foot L03.115 Comment CPT code 74751
[2024-12-05 11:55] LABS: Alanine Aminotransferase 9 U/L (0-41); Albumin Level 3.2 g/dL (3.5-5.2); Alkaline Phosphatase 75 U/L (40-130); Anion Gap 20.8 (5-19); Aspartate Amino Transferase 11 U/L (0-40); Blood Urea Nitrogen 60 mg/dL (8-23); Calcium 8.6 mg/dL (8.5-10.5); Carbon Dioxide 19 mmol/L (22-29); Chloride 98 mmol/L (98-107); Creatinine Clr Calc Pharmacy 19.2753; Globulin 3.7 g/dL (1.3-4.6); Glucose 216 mg/dL (65-115); Lactic Sepsis W/Reflex 1.5 mmol/L (0.5-2.2); Osmolality Calculated 301 mOsm/kg (285-295); Potassium 3.8 mmol/L (3.5-5.1); Sodium 134 mmol/L (136-145); Total Protein 6.9 g/dL (6.6-8.7)
--- NOTE | 2024-12-05 12:54 | PC.NURSE ---
pt taken to MRI at 1235.
[2024-12-05] MEDS: cefepime 2,000 mg SDV 2000 MG IVP (13:46)
[2024-12-05] MEDS: linezolid premix 600 MG/300 ML PREMIX 300 MG IV (13:54)
--- NOTE | 2024-12-05 14:25 | PM.HP ---
Providers/Chief Complaint Admitting Physician: Heriberto Connors MD Primary Care Provider: MARK Kilpatrick Chief Complaint: wound on R foot, pain, swelling History of Present Illness Martir Kruger is a 59 year old male with a past medical history of type 2 diabetes mellitus, CKD stage IV, history of left above-knee amputation, who presents to [facility] due to increased pain, swelling warmth throughout right lower extremity, right foot, with complaints of fevers, chills. Currently patient is alert oriented x 3, follow commands, he has been on a course of clindamycin, he tells me that the right foot, has had swelling, erythema, tenderness, warmth, he has an diabetic ulcer on the right foot, right plantar midfoot Review of Systems Const: Reports: fever(s), fatigue and malaise Card: Denies: chest pain Resp: Denies: dyspnea Medications/Allergies Home Medications ?Medication ?Instructions ?Recorded ?Confirmed ?Last Taken ?Type prosthetic leg sleeve #2 ea 11/11/23 12/05/24 Unknown Rx prosthetic supplies #1 ea 11/11/23 12/05/24 Unknown Rx bumetanide 2 mg tablet 2 mg PO DAILY #90 tabs 05/15/24 12/05/24 12/05/24 Rx hydralazine 50 mg tablet 50 mg PO TID #90 tabs 11/17/24 12/05/24 12/05/24 Rx insulin glargine 100 unit/mL (3 24 unit (0.24 mL) SUBCUT BID #15 mL 11/17/24 12/05/24 12/05/24 Rx mL) subcutaneous pen (Lantus Solostar U-100 Insulin) prosthetic sleeve and liners #1 ea 11/17/24 12/05/24 Unknown Rx flash glucose sensor (FreeStyle #2 kits 11/20/24 12/05/24 Unknown Rx Julius 2 Sensor kit) ezetimibe 10 mg tablet (Zetia) 10 mg PO DAILY #30 tabs 11/22/24 12/05/24 12/05/24 Rx amlodipine 10 mg tablet 10 mg PO BID 12/05/24 12/05/24 12/05/24 History insulin regular hum U-500 conc 500 24 unit SUBCUT TID 12/05/24 12/05/24 12/05/24 History unit/mL(3 mL) subcut pen (Humulin R U-500 (Conc) Insulin Kwikpen) metoprolol tartrate 25 mg tablet 25 mg PO BID 12/05/24 12/05/24 12/05/24 History Allergies Allergy/AdvReac Type Severity Reaction Status Date / Time No Known Allergies Allergy Verified 11/22/24 08:16 PFSH Acute PFSH: Medical History Pulmonary edema Hypertension Diabetes type 2, uncontrolled Acute hypoxic respiratory failure Hyponatremia Acute kidney injury superimposed on chronic kidney disease Acute decompensated heart failure Fluid overload Hyperlipidemia Poorly fitting prosthesis for below knee amputation (BKA) Contrast-induced nephropathy Hypertensive crisis Need for dental care Migraine Intractable vomiting Acute on chronic kidney failure Hypertensive urgency Hyperosmolar hyperglycemic state (HHS) DKA (diabetic ketoacidosis) Prosthesis fitting Hypokalemia Hypertensive urgency Microscopic hematuria Nausea and vomiting Diabetes mellitus with gastroparesis Osteomyelitis Contrast dye induced nephropathy Acute renal failure superimposed on stage 3b chronic kidney disease Peripheral arterial disease Acquired rearfoot varus Diabetic peripheral neuropathy associated with type 2 diabetes mellitus 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 Chronic renal impairment Hyperlipidemia associated with type 2 diabetes mellitus Statin intolerance Foot abscess, left Diabetic foot infection Essential hypertension Hyperlipidemia, mixed Surgical History S/P hemodialysis catheter insertion S/P BKA (below knee amputation) (04/05/21) History of partial amputation of toe of right foot History of amputation of lesser toe Amputated toe of right foot secondary to osteomyelitis 4th right toe Family History Father Diabetes Mother Diabetes Other Hypertension Social History Smoking and tobacco/nicotine status: never used tobacco/nicotine Second hand smoke exposure: No Alcohol intake: former Substance/Drug Use: never Adopted: No Caregiver/support person: No Lives independently: Yes Household members: spouse Housing: House Marital status: service: No Current occupational status: employed Pets and animals: Yes Do you think of yourself as: Straight/Heterosexual Current gender identity: Male Vitals/I&O/Wt Last Vital Signs Temp 98.1 F 12/05/24 10:50 Pulse 89 12/05/24 14:00 Resp 20 H 12/05/24 10:50 BP 161/79 12/05/24 14:00 Pulse Ox 96 12/05/24 14:00 O2 Del Method Room Air 12/05/24 14:00 12/04/24 12/05/24 12/05/24 22:59 06:59 14:59 Intake Total 1250 / 1250 Balance 1250 / 1250 Weight last 48 hrs Weight 117.934 kg Physical Exam Const: COMMON NORMALS: no acute distress and patient oriented x3 Eye: COMMON NORMALS: Equal, round and reactive pupils present and EOMs intact bilaterally Resp: COMMON NORMALS: normal respiratory effort, No retractions, No use of accessory muscles and clear to auscultation bilaterally AUSCULTATION: clear to auscultation bilaterally Cardio: COMMON NORMALS: regular rate, regular rhythm, S1 normal heart sound present and S2 normal heart sound present RATE: regular rate RHYTHM: regular rhythm HEART SOUNDS: S1 normal heart sound present and S2 normal heart sound present GI: COMMON NORMALS: Normal to inspection, nondistended, normoactive bowel sounds present and Soft to palpation Extremity: COMMON NORMALS: no pedal edema NARRATIVE EXTREMITY EXAM: Left above-knee amputation, stump site looks clean and dry Right lower extremity, right foot, significant erythema, swelling, warmth, tenderness throughout the right foot, with DP PT pulses diminished but palpable, good cap refill Neuro: COMMON NORMALS: patient oriented x3, CN's II-XII intact bilaterally and moves all extremities Psych: COMMON NORMALS: mental status grossly normal Data 12/05/24 11:10 12/05/24 11:10 Micro: Microbiology 12/05/24 11:24 Blood Culture - Preliminary Blood SPECIMEN COLLECTED 12/05/24 11:10 Blood Culture - Preliminary Blood SPECIMEN COLLECTED A&P Assessment and plan 1. Cellulitis of right foot: 2. CKD stage 4 secondary to hypertension: 3. Diabetes type 2, uncontrolled: 4. Hypertension: 5. CHF (congestive heart failure): Plan: Right foot cellulitis, deep tissue infection Plan - MRI ordered - Arterial ultrasound - Podiatry consulted, n.p.o. for possible surgical intervention this afternoon - Vancomycin - Zosyn - Full code - Lovenox for DVT prophylaxis Type 2 diabetes mellitus - Moderate dose sliding scale - Lantus 10 units twice daily ALESIA on CKD, gentle IV hydration PDMP PDMP Reviewed: Not Reviewed Attestations Medical Necessity Statement*: Patient requires hospitalization, for cellulitis, right foot, with concern for deep tissue infection, inpatient, greater than 2 midnights, spoke to ER physician, spoke to podiatry and High MDM includes number and complexity of problems actively addressed during encounter, amount and/or complexity of data reviewed/ordered and described risk of complication, morbidity or mortality of management as documented Diagnoses Cellulitis of right foot L03.115 CKD stage 4 secondary to hypertension I12.9; N18.4 Diabetes type 2, uncontrolled Hypertension I10 CHF (congestive heart failure) I50.9
--- NOTE | 2024-12-05 14:52 | PC.NURSE ---
Pt is aware of NPO status and verbalized understanding.
--- NOTE | 2024-12-05 14:53 | PC.NURSE ---
PT upon coming back from MRI, pt states he felt as if he BS was getting low, per finger stick dex is 70, this nurse spoke to Dr. Antonio gibbons verbally ordered D10 in a 250 bag IVB. order entered. Upon recheck of finger stick after med given BG 120.
[2024-12-05 14:55] LABS: Procalcitonin 0.55 ng/mL (0-0.5)
--- NOTE | 2024-12-05 15:19 | USR_ITS ---
PROCEDURE INFORMATION: Exam: US Duplex Right Lower Extremity Arteries Or Arterial Bypass Grafts Exam date and time: 12/05/2024 5:59 PM Age: 59 years old Clinical indication: Condition or disease; Peripheral vascular disease; Prior surgery; Surgery date: Post-operative (0-2 days); Surgery type: Recent right ankle debridement; Additional info: Pvd TECHNIQUE: Imaging protocol: Right Real-time duplex scan of the arteries or arterial bypass grafts of the right lower extremity with 2-D diallo scale, color Doppler flow and spectral waveform analysis. Images documented and saved. COMPARISON: MR foot RT wo con* [id number] 12/05/2024 1:04 PM FINDINGS: Right external iliac artery: Right common iliac artery: 99 cm/s. Normal waveform. Right common femoral artery: 124 cm/s. No occlusion or significant stenosis. Normal waveform. No pseudoaneurysm in the inguinal region. Right superficial femoral artery: 96 cm/s. No occlusion or significant stenosis. Normal waveform. Right popliteal artery: 136 cm/s. No occlusion or significant stenosis. Normal waveform. Right calf/foot arteries: No occlusion or significant stenosis in the visualized arteries. Monophasic waveforms. Dorsalis pedis artery is patent. Soft tissues: No hematoma or collection. Other findings: Ankle-brachial index could not be obtained due to recent ankle debridement. US/[place] [id number] IMPRESSION: Patent right lower extremity arteries without focal stenosis identified. Monophasic waveforms in the calf arteries suggests some degree of peripheral arterial vascular disease.
--- NOTE | 2024-12-05 15:31 | PHA.VACGOAL ---
Vancomycin Goal - Goal Vancomycin Goal:: 10-15 mg/L Vancomycin Indication:: SSTI - Therapy Current therapy:: Pip/Tazo Day of therpy:: Day []of [] . Actual body weight (kg): 260 lb - Data Labs: WBC 20.02 10^3/uL (3.29-11.43) H 12/05/24 11:10 RBC 3.24 10^6/uL (3.85-5.65) L 12/05/24 11:10 Hgb 9.00 g/dL (11.27-16.99) L 12/05/24 11:10 Hct 28.8 % (37-53) L 12/05/24 11:10 MCV 88.9 fl (82-101) 12/05/24 11:10 MCH 27.8 pg (27-33) 12/05/24 11:10 MCHC 31.3 g/dL (30-55) 12/05/24 11:10 RDW 13.2 % (12.1-15.1) 12/05/24 11:10 Sodium 134 mmol/L (136-145) L 12/05/24 11:10 Potassium 3.8 mmol/L (3.5-5.1) 12/05/24 11:10 Chloride 98 mmol/L (98-107) 12/05/24 11:10 Carbon Dioxide 19 mmol/L (22-29) L 12/05/24 11:10 Anion Gap 20.8 (5-19) H 12/05/24 11:10 BUN 60 mg/dL (8-23) H 12/05/24 11:10 Creatinine 5.1 mg/dL (0.7-1.2) H 12/05/24 11:10 GFR Calculation 11.6 mL/min (90-130) L 12/05/24 11:10 Last dialysis session:: N/A Treatment plan:: new consult Regimen:: LOADING DOSE OF 1750 MG X 1 PER DOSING PROTOCOL. PLAN TO PULSE DOSE DUE TO RENAL FUNCTION. Follow up:: WILL OBTAIN VANC LEVEL 24 HOURS POST LOADING DOSE
--- NOTE | 2024-12-05 15:38 | ANES.PREANE2 ---
Pre-Anesthetic Assessment Height/Weight: Height 5 ft 9 in Weight 260 lb Temp Pulse Resp BP Pulse Ox O2 Del Method 98.1 F 91 20 H 167/79 93 Room Air 12/05/24 10:50 12/05/24 15:20 12/05/24 10:50 12/05/24 15:20 12/05/24 15:20 12/05/24 14:00 Preop Diagnosis: Diabetic ulcer cellulitis right foot Operation Date: 12/05/24 16:55 Proposed Procedures p Incision And Drainage(Right) - TAMIKO SheehanM Was Beta Driss taken within 24 hours: N/A Was Clonidine taken within 24 hours: N/A Social No alcohol and No tobacco Exam alert and oriented x 3 Airway Submandibular: within normal limits Cervical ROM: within normal limits Mallampati: Class III Dentition: full Anesthetic Plan ASA status: 4 Anesthesia: MAC Other: Patient presents to the ER today with osteomyelitis of the foot. No prior issues with anesthesia NPO since IDDM, BS 300s at admission. Patient was treated with insulin and went down to 57 and was treated with D5. Last BS 115 Left BKA CKD history Labs reviewed from 12/05/2024, WBC 20, hemoglobin 9, ESR 341, NA 134, K+ 3.8 Prior echo 2023 showing EF of 60% with no RWMA Plan for MAC anesthesia with local via surgeon Medications/Allergies Home Medications ?Medication ?Instructions ?Recorded ?Confirmed ?Last Taken ?Type prosthetic leg sleeve #2 ea 11/11/23 12/05/24 Unknown Rx prosthetic supplies #1 ea 11/11/23 12/05/24 Unknown Rx bumetanide 2 mg tablet 2 mg PO DAILY #90 tabs 05/15/24 12/05/24 12/05/24 Rx hydralazine 50 mg tablet 50 mg PO TID #90 tabs 11/17/24 12/05/24 12/05/24 Rx insulin glargine 100 unit/mL (3 24 unit (0.24 mL) SUBCUT BID #15 mL 11/17/24 12/05/24 12/05/24 Rx mL) subcutaneous pen (Lantus Solostar U-100 Insulin) prosthetic sleeve and liners #1 ea 11/17/24 12/05/24 Unknown Rx flash glucose sensor (FreeStyle #2 kits 11/20/24 12/05/24 Unknown Rx Julius 2 Sensor kit) ezetimibe 10 mg tablet (Zetia) 10 mg PO DAILY #30 tabs 11/22/24 12/05/24 12/05/24 Rx amlodipine 10 mg tablet 10 mg PO BID 12/05/24 12/05/24 12/05/24 History insulin regular hum U-500 conc 500 24 unit SUBCUT TID 12/05/24 12/05/24 12/05/24 History unit/mL(3 mL) subcut pen (Humulin R U-500 (Conc) Insulin Kwikpen) metoprolol tartrate 25 mg tablet 25 mg PO BID 12/05/24 12/05/24 12/05/24 History Allergies Allergy/AdvReac Type Severity Reaction Status Date / Time No Known Allergies Allergy Verified 11/22/24 08:16 [facility] Anesthesia Medical History Pulmonary edema Hypertension Diabetes type 2, uncontrolled Acute hypoxic respiratory failure Hyponatremia Acute kidney injury superimposed on chronic kidney disease Acute decompensated heart failure Fluid overload Hyperlipidemia Poorly fitting prosthesis for below knee amputation (BKA) Contrast-induced nephropathy Hypertensive crisis Need for dental care Migraine Intractable vomiting Acute on chronic kidney failure Hypertensive urgency Hyperosmolar hyperglycemic state (HHS) DKA (diabetic ketoacidosis) Prosthesis fitting Hypokalemia Hypertensive urgency Microscopic hematuria Nausea and vomiting Diabetes mellitus with gastroparesis Osteomyelitis Contrast dye induced nephropathy Acute renal failure superimposed on stage 3b chronic kidney disease Peripheral arterial disease Acquired rearfoot varus Diabetic peripheral neuropathy associated with type 2 diabetes mellitus 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 Chronic renal impairment Hyperlipidemia associated with type 2 diabetes mellitus Statin intolerance Foot abscess, left Diabetic foot infection Essential hypertension Hyperlipidemia, mixed Surgical History S/P hemodialysis catheter insertion S/P BKA (below knee amputation) (04/05/21) History of partial amputation of toe of right foot History of amputation of lesser toe Amputated toe of right foot secondary to osteomyelitis 4th right toe Family History Father Diabetes Mother Diabetes Other Hypertension Social History Smoking and tobacco/nicotine status: never used tobacco/nicotine Second hand smoke exposure: No Alcohol intake: former Substance/Drug Use: never Adopted: No Caregiver/support person: No Lives independently: Yes Household members: spouse Housing: House Marital status: service: No Current occupational status: employed Pets and animals: Yes Do you think of yourself as: Straight/Heterosexual Current gender identity: Male Data Anesthesia 12/05/24 11:10 12/05/24 11:10 Short CBC 12/05/24 Range/Units 11:10 WBC 20.02 H (3.29-11.43) 10^3/uL Hgb 9.00 L (11.27-16.99) g/dL Hct 28.8 L (37-53) % MCV 88.9 (82-101) fl Plt Count 301 (157-399) 10^3/cmm Neut % (Auto) 88.8 % Neut # (Auto) 17.76 H (1.8-7.7) 10^3/uL BMP 12/05/24 11:10 Sodium 134 L Potassium 3.8 Chloride 98 Carbon Dioxide 19 L BUN 60 H Creatinine 5.1 H Glucose 216 H Calcium 8.6 Liver Function 12/05/24 Range/Units 11:10 Total Bilirubin 0.4 (0.15-1.2) mg/dL AST 11 (0-40) U/L ALT 9 (0-41) U/L Alkaline Phosphatase 75 (40-130) U/L Albumin 3.2 L (3.5-5.2) g/dL Coags 12/05/24 11:10 ESR 41 H C-Reactive Protein 214.6 H Microbiology 12/05/24 11:24 Blood Culture - Preliminary Blood SPECIMEN COLLECTED 12/05/24 11:10 Blood Culture - Preliminary Blood SPECIMEN COLLECTED Cardiac Studies: Echocardiogram 08/29/23 Sestamibi Stress Test (Cardiology) 09/23/20
[2024-12-05 15:41] LABS: Glucose Urine UA Trace (Normal); Nitrate Urine Negative (Negative); Specific Gravity, Urine 1.013 (1.005-1.030)
[2024-12-05 15:43] LABS: Estmated Average Glucose 180; Hemoglobin A1C 7.9 % (4.0-6.0)
--- NOTE | 2024-12-05 15:51 | W.PM.BPON ---
Date of Procedure: 05/21/23 Surgeon: Trace Shaffer DPM Army Manager(s): Irma incision and debridement down to myofascial layer right foot. Procedure(s) performed: incision and debridement down to myofascial layer right foot. Findings of the procedure(s):Devitalized tissue down to myofascial layer right foot Estimated blood loss: 15 Specimen(s) removed: None Post-operative diagnosis: Right diabetic foot ulcer with infection/cellulitis and leukocytosis.
--- NOTE | 2024-12-05 15:51 | PM.OP ---
Operative Report Date of procedure: December 05, 2024 Pre-op diagnosis: Right diabetic foot infection exposed to muscle and fascia Right lower extremity cellulitis Post-op diagnosis: Same Post-op findings: Devitalized soft tissue right plantar foot down to myofascial layer. Did not extend to bone. Procedure done: Incision and debridement down to muscle and fascia right foot. CPT code 06649 Implants: No implants Specimens removed/disposition: Deep soft tissue sent to microbiology for Gram stain, culture and sensitivity Pathology: None Surgeon: Trace Shaffer DPM Drivability Technician: Irma Estimated blood loss: 5 See intraoperative documentation IV fluids: See intraoperative documentation Urine output: none Complications: None Findings: Devitalized soft tissue right plantar foot down to myofascial layer. Did not extend to bone. Brief History: 59-year-old insulin-dependent diabetic male presents with new onset of right foot ulcer exposed to myofascial layer with streaking to the leg, wound is 1 week in duration. Leukocytosis with fever and chills, patient admitted to hospital service Empiric IV antibiotics dosed for renal function Performed wound debridement of the right foot wound in the emergency department postdebridement wound cultures taken and sent to microbiology, dressing Betadine wet-to-dry. Nonweightbearing right foot. X-ray right foot 3 views shows erosive destructive changes at the distal phalanx of the right second toe consistent with osteomyelitis as well as a nondisplaced intra-articular fracture of the base of the right second proximal phalanx. Stable postoperative changes at the right fourth ray amputation. Metatarsus adductus and forefoot varus deformities. Procedure: Under mild sedation the patient was brought to the operating room and remained on the gurney in supine position. A timeout was performed. Anesthesia was then administered by the anesthesia service. Well-padded pneumatic tourniquet applied to the patient's right high calf. Right lower extremity was then scrubbed, prepped and draped utilizing normal aseptic technique. Right foot was then elevated and tourniquet inflated to 250 mmHg. Attention was directed the right lower extremity where cellulitis was appreciated streaking to the level of the distal one third of the anterior tibia. Wound located at the plantar aspect of the right midfoot with devitalized epidermis, dermis, subcutaneous tissue down to devitalized myofascial layer, wound did not probe to bone this was sharply and excisionally debrided down to myofascial layer with #15 blade and brown pickups and was sharply debrided of all devitalized tissue followed by irrigation with saline flush and Irrisept. No further devitalized tissue appreciated, wound did not extend to bone. Postdebridement wound measurements 2.8 cm x 2.2 cm x 0.5 cm. Dressed with saline wet-to-dry 4 x 4 gauze, Kerlix and Sylvester wrap. Tourniquet was deflated and a hyperemic response was noted to the distal digits remaining of the right foot. Patient tolerated the procedure and anesthesia well and was sent to PACU with vital signs stable and vascular status intact. Following a period of postoperative monitoring open transferred back to [facility] to continue empiric IV antibiotics and awaiting wound cultures. As wound did not extend to bone no plans for PICC line at this time anticipating 2 weeks oral course of antibiotics with wound care clinic follow-up.
[2024-12-05] MEDS: piperacillin-tazobactam 3.375 GM in sodium chloride 0.9% (plus) 50 ML IV (16:03)
[2024-12-05 16:04] LABS: Add Urine Microscopic? YES
[2024-12-05 16:07] LABS: Cholesterol 157 mg/dL (0-200); HDL Cholesterol 36 mg/dL (60-100); Thyroid Stimulating Hormone 2.25 uIU/mL (0.27-4.20); Triglycerides 201 mg/dL (0-150)
--- NOTE | 2024-12-05 16:42 | ANE.PACU2 ---
Inpatient post-anesthesia follow up: Airway intact: Yes Vital signs: Temperature 97.8 F Pulse Rate 88 Respiratory Rate 17 Blood Pressure 177/72 Pulse Oximetry 93 Oxygen Delivery Me thod Room Air Oxygen Flow Rate 8 Fraction of Inspir ed Oxygen Hydration adequate: Yes Nausea and vomiting: No Pain level: 1 Mental status: Baseline
[2024-12-05] MEDS: pantoprazole 40 mg SDV IVP (16:59)
[2024-12-05] MEDS: vancomycin 1,750 MG/350 ML PIGGYBACK 200 MG IV (17:00)
[2024-12-06] VITALS (20 sets, daily range): BP systolic 152–183; BP diastolic 72–95; PULSE 86–104; RESP 15–28; TEMP 36.6–37.1; O2SAT 86–98
[2024-12-06 04:53] LABS: Hematocrit 31.7 % (37-53); Hemoglobin 10.30 g/dL (11.27-16.99); Mean Corpuscular HGB Conc 32.5 g/dL (30-55); Mean Corpuscular Hemoglobin 27.5 pg (27-33); Mean Corpuscular Volume 84.8 fl (82-101); Nucleated Red Blood Cells % 0 %; Platelet Count 219 10^3/cmm (157-399); Red Blood Count 3.74 10^6/uL (3.85-5.65); White Blood Count 13.45 10^3/uL (3.29-11.43)
[2024-12-06] MEDS: piperacillin-tazobactam 3.375 GM in sodium chloride 0.9% (plus) 50 ML IV ×2 (04:59→17:05)
[2024-12-06] MEDS: insulin glargine 100 units/1 mL 10 UNIT SUBCUT ×2 (05:05→17:05)
[2024-12-06 05:06] LABS: INR 1.10 (0.8-1.2); Prothrombin Time 15.00 SECONDS (12.1-14.9)
[2024-12-06 05:20] LABS: Alanine Aminotransferase 11 U/L (0-41); Albumin Level 3.2 g/dL (3.5-5.2); Alkaline Phosphatase 70 U/L (40-130); Anion Gap 20.8 (5-19); Aspartate Amino Transferase 13 U/L (0-40); Blood Urea Nitrogen 47 mg/dL (8-23); Calcium 8.1 mg/dL (8.5-10.5); Carbon Dioxide 17 mmol/L (22-29); Chloride 100 mmol/L (98-107); Creatinine Clr Calc Pharmacy 20.4800; Globulin 3.3 g/dL (1.3-4.6); Glucose 176 mg/dL (65-115); Magnesium 2.0 mg/dL (1.7-2.3); Osmolality Calculated 295 mOsm/kg (285-295); Potassium 3.8 mmol/L (3.5-5.1); Sodium 134 mmol/L (136-145); Total Protein 6.5 g/dL (6.6-8.7)
--- NOTE | 2024-12-06 09:20 | PC.CHAP ---
Pastoral Care Encounter/Spiritual Assessment Type of Contact [] Declined insole cementer visit [] Patient/Family/Request visit [] Outpatient visit [] Follow-up visit [] Physician referral [] Code/Alert [x] Routine visit [] Staff referral [] Actively dying [] Patient sleeping [x] Family support [] [] Out of room [] Palliative care [] [] Receiving care in room [] Pre-surgical visit [] Trauma [] Long length of stay [] ICU visit [] Other: Relational/Emotional Strength [x] Patient feels connected with others/family/visitors/staff [] Distress [] Loneliness/isolation [] Abandonment Spirituality of Patient [x] Person of Jania [] Attends Denominational of their Jania [x] Believes in Prayer [] Reads Bible or Sikh materials [] There are Spiritual issues to be addressed [employer] Workflow Consultant Interventions [x] Prayer [x] Active listening [x] Non-anxious presence [x] Spiritual/emotional support [] Crisis/trauma care [] Spiritual counseling [] Bereavement support [] Provided bereavement packet [] Provided Bible/devotional materials [] Provided toy/stuffed animal, coloring book to patient or family member [] Provided Communion [] Anointing/[place] [] Salvation [x] Completed spiritual assessment [] Other: Impact on Illness or Injury [] Angry [] Fearful [] Anxious [] Often cries [] Exhaustion [] Unable to work [] Unable to attend gnosticist [] Unable to walk/stand [] Unable to read [] Unable to drive [] Unable to eat/drink [] Unable to sleep [] Unable to be with family [] Patient intubated [] Other: Summary Time spent with patient 5 min
--- NOTE | 2024-12-06 15:15 | P.PN_ITS ---
Subjective 2 Subjective: patient was seen this morning, no fever, no chills, no cough, no abdominal pain, no fever, no chills Vitals/I&O/Wt Last Vital Signs Temp 97.8 F 12/06/24 11:34 Pulse 88 12/06/24 11:34 Resp 17 12/06/24 11:34 BP 177/72 12/06/24 11:34 Pulse Ox 93 12/06/24 11:34 O2 Del Method Room Air 12/06/24 11:34 O2 Flow Rate 8 12/05/24 16:30 12/06/24 12/06/24 12/06/24 06:59 14:59 22:59 Intake Total 1650 / 4540 360 / 360 Output Total 850 / 1501 400 / 400 Balance 800 / 3039 -40 / -40 Weight last 48 hrs Weight 116.573 kg Weight 117.934 kg Weight 117.934 kg Physical Exam 2 Const: COMMON NORMALS: no acute distress and patient oriented x3 Resp: COMMON NORMALS: normal respiratory effort, No retractions, No use of accessory muscles and clear to auscultation bilaterally AUSCULTATION: clear to auscultation bilaterally Cardio: COMMON NORMALS: regular rate, regular rhythm, S1 normal heart sound present and S2 normal heart sound present RATE: regular rate RHYTHM: r egular rhythm HEART SOUNDS: S1 normal heart sound present and S2 normal heart sound present GI: COMMON NORMALS: Normal to inspection, nondistended, normoactive bowel sounds present and non-tender Extremity: COMMON NORMALS: no pedal edema NARRATIVE EXTREMITY EXAM: right foot wrapped Neuro: COMMON NORMALS: patient oriented x3 Psych: COMMON NORMALS: mental status grossly normal Data 12/06/24 04:28 12/06/24 04:28 Micro: Microbiology 12/05/24 12:06 Wound Culture - Preliminary Foot Right 12/05/24 16:20 Gram Stain - Final Foot - #1 Tissue Culture - Preliminary 12/05/24 11:24 Blood Culture - Preliminary Blood NEGATIVE TO DATE 12/05/24 11:10 Blood Culture - Preliminary Blood NEGATIVE TO DATE A&P Assessment and plan 1. Cellulitis of right foot: 2. CKD stage 4 secondary to hypertension: 3. Diabetes type 2, uncontrolled: 4. Hypertension: 5. CHF (congestive heart failure): Plan: Right foot cellulitis, deep tissue infection s/p incision and debridement down to myofascial layer right foot. Plan - MRI ordered MR/MR foot RT wo con* [id number] IMPRESSION: 1. Intramuscular edema and dorsal subcutaneous soft tissue edema. This is not specific. This can be seen with bland edema however infectious myositis or cellulitis is within the differential 2. Plantar soft tissue wound or blister. Again there is no underlying drainable fluid collection. 3. As compared to radiograph today, the forefoot is not adequately evaluated and specifically the middle and distal phalanx of the 2nd digit are not evaluated as the images included are of the hindfoot and midfoot primarily. - Arterial ultrasound US/[place] [id number] IMPRESSION: Patent right lower extremity arteries without focal stenosis identified. Monophasic waveforms in the calf arteries suggests some degree of peripheral arterial vascular disease. - Podiatry consulted - Vancomycin - Zosyn - Full code - Lovenox for DVT prophylaxis Type 2 diabetes mellitus - Moderate dose sliding scale - Lantus 10 units twice daily ALESIA on CKD, improving 4.8, gentle IV hydration PDMP PDMP Reviewed: Not Reviewed Attestations 2 Medical Necessity Statement*: patient requires hsopitalization for Right foot cellulitis, deep tissue infection Diagnoses Cellulitis of right foot L03.115 CKD stage 4 secondary to hypertension I12.9; N18.4 Diabetes type 2, uncontrolled Hypertension I10 CHF (congestive heart failure) I50.9
[2024-12-06] MEDS: pantoprazole 40 mg SDV IVP (15:46)
[2024-12-06] MEDS: FUROsemide 10 mg/mL SDV 4mL 40 MG IVP (16:27)
--- NOTE | 2024-12-06 16:41 | P.PN_ITS ---
Subjective 2 Subjective: Patient seen bedside this afternoon, resting comfortably in his bed, tolerating regular diet. Denies any pain at the right foot. Vitals/I&O/Wt Last Vital Signs Temp 98.3 F 12/06/24 16:00 Pulse 94 12/06/24 16:00 Resp 18 12/06/24 16:00 BP 167/74 12/06/24 16:00 Pulse Ox 90 12/06/24 16:00 O2 Del Method Room Air 12/06/24 16:00 O2 Flow Rate 8 12/05/24 16:30 12/06/24 12/06/24 12/06/24 06:59 14:59 22:59 Intake Total 1650 / 4540 360 / 360 1000 / 1360 Output Total 850 / 1501 400 / 400 500 / 900 Balance 800 / 3039 -40 / -40 500 / 460 Weight last 48 hrs Weight 257 lb Weight 260 lb Weight 260 lb Physical Exam 2 Narrative: GENERAL: Patient is alert and oriented ?3 and in no acute distress. The following is a focused right lower extremity exam. VASCULAR: Right dorsalis pedis and posterior tibial arteries are palpable. Capillary refill less than 3 seconds right great toe. Warmth right foot and anterior leg. Decreased pedal hair growth to the right lower extremity. Increased focal edema to the right second toe. NEUROLOGICAL: Protective sensation intact 0/10 sites, tested with Ida Vipin monofilament to right lower extremity. DERMATOLOGICAL: Wound with improved base, no devitalized tissue right plantar foot exposed to myofascial layer, continued cellulitis extending to the distal one third of the right leg. 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 History of left below-knee amputation, ambulates with prosthetic. No crepitus with soft tissue palpation right foot and ankle. Metatarsus adductus deformity to the right foot. Right forefoot varus deformity. Data 12/06/24 04:28 12/06/24 04:28 Micro: Microbiology 12/05/24 12:06 Wound Culture - Preliminary Foot Right 12/05/24 16:20 Gram Stain - Final Foot - #1 Tissue Culture - Preliminary 12/05/24 11:24 Blood Culture - Preliminary Blood NEGATIVE TO DATE 12/05/24 11:10 Blood Culture - Preliminary Blood NEGATIVE TO DATE A&P Assessment and plan 1. CKD stage 4 secondary to hypertension: 2. Uncontrolled type 2 diabetes mellitus with hyperglycemia: 3. Acute diastolic congestive heart failure: 4. 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 Cellulitis of right foot: Plan: 59-year-old insulin-dependent diabetic male presents with new onset of right foot ulcer exposed to myofascial layer with streaking to the leg, wound is 1 week in duration. 1 day status post I&D right foot down to myofascial layer, wound cultures pending. Date of operation 12/05/2024 No further ascending cellulitis however there is residual cellulitis at the distal one third of the right leg. Continuing empiric antibiotics may narrow once cultures yield further information Nonweightbearing right foot No plans for further surgical intervention at this time. Betadine wet-to-dry right foot. Anticipating 2-week course of oral antibiotics at discharge once wound cultures yield further information, wound care clinic follow-up. 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
--- NOTE | 2024-12-06 20:17 | PC.NURSE ---
Patient vitals were checked and oxygen was low at 85% on 2L nasal cannula. Patient was bumped up to 4L nasal cannula and oxygen was still 88-89% with a persistent dry cough. Patient sitting up at 80 degrees in the bed, but persistenly feels short of breath. Doctor contacted and will see the patient. Respiratory contacted as well.
--- NOTE | 2024-12-06 20:52 | XRR_ITS ---
PROCEDURE INFORMATION: Exam: XR Chest Exam date and time: 12/06/2024 8:59 PM Age: 59 years old Clinical indication: Shortness of breath TECHNIQUE: Imaging protocol: Radiologic exam of the chest. Views: 1 view. COMPARISON: CR XR chest 1V portable [id number] 08/28/2023 8:50 PM FINDINGS: Lungs: Mild bibasilar atelectasis. No lobar consolidation. Pleural spaces: Unremarkable. No pleural effusion. No pneumothorax. Heart/Mediastinum: Unremarkable. No cardiomegaly. Bones/joints: Unremarkable. XR/XR chest 1V portable [id number] IMPRESSION: Mild bibasilar atelectasis.
[2024-12-06] MEDS: FUROsemide 10 mg/mL SDV 10mL 60 MG IVP ×2 (21:04→22:08)
--- NOTE | 2024-12-06 21:56 | P.EN_ITS ---
Event Note Event Note: Hypoxemia with mild respiratory distress, Assessment: Acute hypoxemic respiratory failure requiring oxygen supplementation secondary to fluid overload. Patient was seen with increased oxygen requirements up to 5 to 6 L through facemask with saturation going around 89 to 90%. Did not report any chest pressure or chest pain. No diaphoresis or dizziness. On clinical examination patient was able to speak in full sentences was having mild wet cough. He was alert oriented. Clinical examination revealed mild bilateral wheezes and bibasal crepitations, pitting edema on right leg and also on the amputated leg. Chest x-ray ordered, independently reviewed and element of pulmonary congestion appreciated. Based on patient deranged renal function with CKD stage V with past history of end-stage renal disease requiring dialysis. Patient fluids to be held and to give Lasix 60 mg IV stat and to insert Martinez's catheter. Based on the urine output to repeat another Lasix 40 to 60 mg IV stat and keep on adequate hemodynamic monitoring. Patient to be transferred to [facility]. Previous echo in 2023 was reviewed and had normal ejection fraction with diastolic dysfunction Repeat echo. Event Notes Attestations Time Spent in Patient Care: 16 - 35 minutes (>than 50% of time sp ent in counselling and/or direct pt care on unit) .
--- NOTE | 2024-12-06 23:01 | PC.NURSE ---
Critical care note: Patient became extremely short of breath when getting up to the bedside commode. Was breathing 30 times a minute and stated he could not catch his breath. Auditory wheezes heard. was called and was given order for another 60 IVP of Lasix and transfer to the ICU. Also orders given to place on bipap. Report called to Wendy awaiting dialysis room to be cleaned then will move patient. Patient currently on bipap and doing better. Will continue to monitor
[2024-12-06] MEDS: albumin 25 G/100 ML BAG 60 G IV (23:15)
--- NOTE | 2024-12-06 23:15 | PC.NURSE ---
Albumin/Lasix Prior to patient being on unit, Dr. Hendrix present and verbal orders received to administer one time dose of albumin as well as initiate titratable lasix drip when here.
--- NOTE | 2024-12-06 23:30 | PC.NURSE ---
Unequal Pupil Patient's right pupil fixed while left pupil round and reactive to light. Patient states a history of eye surgery on the right pupil and states that this is normal for him.
[2024-12-07] VITALS (110 sets, daily range): BP systolic 122–191; BP diastolic 47–95; PULSE 85–102; RESP 12–30; TEMP 36.9–37.3; O2SAT 88–98
--- NOTE | 2024-12-07 00:35 | PC.NURSE ---
BMP/Hydralazine Lasix drip initiated; no bolus drip ordered. Last potassium level drawn at 0430 on 12/06. Dr. Hendrix contacted; orders received for a one time BMP now, administer a bolus lasix dose of 80 mg IVP once, and administer 25 mg hydralazine PO once.
[2024-12-07] MEDS: FUROsemide 10 mg/mL SDV 10mL 80 MG IVP (01:00)
[2024-12-07 01:18] LABS: Anion Gap 20.7 (5-19); Blood Urea Nitrogen 52 mg/dL (8-23); Calcium 8.6 mg/dL (8.5-10.5); Carbon Dioxide 18 mmol/L (22-29); Chloride 97 mmol/L (98-107); Creatinine Clr Calc Pharmacy 19.9402; Glucose 164 mg/dL (65-115); Osmolality Calculated 292 mOsm/kg (285-295); Potassium 3.7 mmol/L (3.5-5.1); Sodium 132 mmol/L (136-145)
[2024-12-07 03:40] LABS: Hematocrit 30.1 % (37-53); Hemoglobin 9.70 g/dL (11.27-16.99); Mean Corpuscular HGB Conc 32.2 g/dL (30-55); Mean Corpuscular Hemoglobin 27.3 pg (27-33); Mean Corpuscular Volume 84.8 fl (82-101); Nucleated Red Blood Cells % 0 %; Platelet Count 221 10^3/cmm (157-399); Red Blood Count 3.55 10^6/uL (3.85-5.65); White Blood Count 11.19 10^3/uL (3.29-11.43)
[2024-12-07 04:00] LABS: INR 1.13 (0.8-1.2); Prothrombin Time 15.30 SECONDS (12.1-14.9)
[2024-12-07 04:08] LABS: Alanine Aminotransferase 12 U/L (0-41); Albumin Level 3.5 g/dL (3.5-5.2); Alkaline Phosphatase 75 U/L (40-130); Anion Gap 21.6 (5-19); Aspartate Amino Transferase 12 U/L (0-40); Blood Urea Nitrogen 51 mg/dL (8-23); Calcium 8.7 mg/dL (8.5-10.5); Carbon Dioxide 18 mmol/L (22-29); Chloride 97 mmol/L (98-107); Creatinine Clr Calc Pharmacy 18.7898; Globulin 3.2 g/dL (1.3-4.6); Glucose 162 mg/dL (65-115); Magnesium 2.1 mg/dL (1.7-2.3); Osmolality Calculated 293 mOsm/kg (285-295); Potassium 3.6 mmol/L (3.5-5.1); Sodium 133 mmol/L (136-145); Total Protein 6.7 g/dL (6.6-8.7)
[2024-12-07] MEDS: piperacillin-tazobactam 3.375 GM in sodium chloride 0.9% (plus) 50 ML IV ×2 (04:31→16:59)
[2024-12-07] MEDS: insulin glargine 100 units/1 mL 10 UNIT SUBCUT (05:51)
--- NOTE | 2024-12-07 08:15 | PM.CONSULT ---
Providers/Reason For Consult Consulting Physician/Specialty*: kommana/Nephrology Reason for Consult*: ESRD Attending Physician: Heriberto Connors MD Primary Care Provider: MARK Kilpatrick History of Present Illness History of Present Illness Maritr Kruger is a 59 year old male Patient is a 59-year-old male with past medical history of diabetes, chronic kidney disease stage IV followed by [facility] as outpatient, history of left above-knee amputation, presented to the emergency department due to right lower extremity wounds associated with fevers and chills. Patient currently being treated for cellulitis and was also found to have volume overload with pulmonary edema. Last night patient was placed on BiPAP due to respiratory distress and was started on Lasix drip. Patient had reasonable response with Lasix drip but his renal function has gotten worse with a creatinine up to 5.2 today. Review of Systems Narrative: NEGATIVE Medications/Allergies Home Medications ?Medication ?Instructions ?Recorded ?Confirmed ?Last Taken ?Type prosthetic leg sleeve #2 ea 11/11/23 12/05/24 Unknown Rx prosthetic supplies #1 ea 11/11/23 12/05/24 Unknown Rx bumetanide 2 mg tablet 2 mg PO DAILY #90 tabs 05/15/24 12/05/24 12/05/24 Rx hydralazine 50 mg tablet 50 mg PO TID #90 tabs 11/17/24 12/05/24 12/05/24 Rx insulin glargine 100 unit/mL (3 24 unit (0.24 mL) SUBCUT BID #15 mL 11/17/24 12/05/24 12/05/24 Rx mL) subcutaneous pen (Lantus Solostar U-100 Insulin) prosthetic sleeve and liners #1 ea 11/17/24 12/05/24 Unknown Rx flash glucose sensor (FreeStyle #2 kits 11/20/24 12/05/24 Unknown Rx Julius 2 Sensor kit) ezetimibe 10 mg tablet (Zetia) 10 mg PO DAILY #30 tabs 11/22/24 12/05/24 12/05/24 Rx amlodipine 10 mg tablet 10 mg PO BID 12/05/24 12/05/24 12/05/24 History insulin regular hum U-500 conc 500 24 unit SUBCUT TID 12/05/24 12/05/24 12/05/24 History unit/mL(3 mL) subcut pen (Humulin R U-500 (Conc) Insulin Kwikpen) metoprolol tartrate 25 mg tablet 25 mg PO BID 12/05/24 12/05/24 12/05/24 History Allergies Allergy/AdvReac Type Severity Reaction Status Date / Time No Known Allergies Allergy Verified 11/22/24 08:16 Current Medications Generic Name Dose Route Start Last Admin Trade Name Freq PRN Reason Stop Dose Admin Albuterol/Ipratropium 3 ml 12/06/24 21:14 12/06/24 21:19 Ipratropium-Albuterol 3 Ml Neb INHALATION 3 ml Q4H.RESPIRATORY PRN Administration SHORTNESS OF BREATH Amlodipine Besylate 10 mg 12/06/24 15:20 12/07/24 04:25 Amlodipine 10 Mg Tablet PO 10 mg DAILY MANUELA Administration Ezetimibe 10 mg 12/07/24 05:00 12/07/24 04:25 Ezetimibe 10 Mg Tablet PO 10 mg DAILY MANUELA Administration Enoxaparin Sodium 30 mg 12/06/24 21:00 12/06/24 20:07 Enoxaparin 30 Mg/0.3 Ml Syringe SUBCUT 30 mg Q24H MANUELA Administration Hydralazine HCl 50 mg 12/06/24 05:30 12/07/24 04:25 Hydralazine 50 Mg Tablet PO 50 mg TID MANUELA Administration Piperacillin Sod/Tazobactam 50 mls @ 12.5 mls/hr 12/05/24 17:00 12/07/24 04:31 Sod 3.375 gm/ Sodium Chloride IV 12.5 mls/hr Q12H MANUELA Administration Furosemide 100 mg/ Sodium 50 mls @ 0 mls/hr 12/06/24 23:15 12/07/24 07:25 Chloride IV 10 mg/hr .Q0M MANUELA 5 mls/hr Protocol Administration Per Protocol Insulin Glargine 10 unit 12/05/24 17:00 12/07/24 05:51 Insulin Glargine 100 Units/1 Ml SUBCUT 10 unit BID@0500,1700 MANUELA Administration Insulin Human Lispro 0 unit 12/05/24 18:00 12/07/24 07:49 Insulin Lispro 100 Unit/1 Ml SUBCUT 8 unit WM&BEDTIME MANUELA Administration Protocol Metoprolol Tartrate 25 mg 12/06/24 05:30 12/07/24 04:24 Metoprolol Tartrate 25 Mg Tablet PO 25 mg BID MANUELA Administration Pantoprazole Sodium 40 mg 12/05/24 15:19 12/06/24 15:46 Pantoprazole 40 Mg Sdv IVP 40 mg Q24H MANUELA Administration PFSH Acute PFSH: Medical History Pulmonary edema Hypertension Diabetes type 2, uncontrolled Acute hypoxic respiratory failure Hyponatremia Acute kidney injury superimposed on chronic kidney disease Acute decompensated heart failure Fluid overload Hyperlipidemia Poorly fitting prosthesis for below knee amputation (BKA) Contrast-induced nephropathy Hypertensive crisis Need for dental care Migraine Intractable vomiting Acute on chronic kidney failure Hypertensive urgency Hyperosmolar hyperglycemic state (HHS) DKA (diabetic ketoacidosis) Prosthesis fitting Hypokalemia Hypertensive urgency Microscopic hematuria Nausea and vomiting Diabetes mellitus with gastroparesis Osteomyelitis Contrast dye induced nephropathy Acute renal failure superimposed on stage 3b chronic kidney disease Peripheral arterial disease Acquired rearfoot varus Diabetic peripheral neuropathy associated with type 2 diabetes mellitus 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 Chronic renal impairment Hyperlipidemia associated with type 2 diabetes mellitus Statin intolerance Foot abscess, left Diabetic foot infection Essential hypertension Hyperlipidemia, mixed Surgical History S/P hemodialysis catheter insertion S/P BKA (below knee amputation) (04/05/21) History of partial amputation of toe of right foot History of amputation of lesser toe Amputated toe of right foot secondary to osteomyelitis 4th right toe Family History Father Diabetes Mother Diabetes Other Hypertension Social History Smoking and tobacco/nicotine status: never used tobacco/nicotine Second hand smoke exposure: No Alcohol intake: former Substance/Drug Use: never Adopted: No Caregiver/support person: No Lives independently: Yes Household members: spouse Housing: House Marital status: service: No Current occupational status: employed Pets and animals: Yes Do you think of yourself as: Straight/Heterosexual Current gender identity: Male Vitals/I&O/Wt Last Vital Signs Temp 99 F 12/07/24 04:30 Pulse 91 12/07/24 08:01 Resp 18 12/07/24 08:01 BP 151/65 12/07/24 08:00 Pulse Ox 94 12/07/24 08:01 O2 Del Method High Flow Nasal Cannula 12/07/24 08:01 O2 Flow Rate 5 12/07/24 08:01 FiO2 50 12/07/24 03:28 12/06/24 12/07/24 12/07/24 22:59 06:59 14:59 Intake Total 1050 / 1410 100 / 1510 35.5 / 35.5 Output Total 1750 / 2150 2910 / 5060 Balance -700 / -740 -2810 / -3550 35.5 / 35.5 Weight last 48 hrs Weight 114.305 kg Weight 119.295 kg Weight 116.573 kg Weight 117.934 kg Weight 117.934 kg Physical Exam Narrative: Patient is awake alert, no distress PERRLA No JVD S1-S2 regular rate and rhythm per report Lungs with crackles bilaterally per report Abdomen distended soft nontender per report Extremities left BKA and right lower extremityn Skin no rash Urinary Catheter Management: Martinez: Cath Placed During This Visit: yes Reason for Continuing Indwelling Catheter: Accurate Measurement of Urinary Output in Critically Ill Patients Urinary Catheter Date of Insertion: 12/06/24 Urinary Catheter Time of Insertion: 21:16 Data 12/07/24 03:21 12/07/24 03:21 Micro: Microbiology 12/05/24 12:06 Wound Culture - Preliminary Foot Right 12/05/24 16:20 Gram Stain - Final Foot - #1 Tissue Culture - Preliminary 12/05/24 11:24 Blood Culture - Preliminary Blood NEGATIVE TO DATE 12/05/24 11:10 Blood Culture - Preliminary Blood NEGATIVE TO DATE A&P Assessment and plan 1. Acute on chronic renal insufficiency: 1. Acute on chronic kidney disease stage IV: Baseline creatinine in the 4 range, now presents with right lower extremity cellulitis and has volume overload. Has ALESIA component likely from ATN due to acute infection/cellulitis and cardiorenal. Overnight patient was placed on BiPAP as well as Lasix drip. Reasonable urine output with Lasix for now. Due to multiple comorbidities and history of CHF and advanced CKD, I have discussed possible initiation of hemodialysis with patient. Strict intake and output, placed on tube gram sodium restriction and 1500 mL fluid restriction 2. Right lower extremity cellulitis antibiotics per primary team 3. Anemia: Check iron studies, will consider starting ALANIS 4. History of CHF, with preserved ejection fraction, diuretics as above Patient evaluated using audiovisual cart. Time spent 40 minutes. PDMP PDMP Reviewed: Not Reviewed Consult Attestations Medical Necessity Statement: per sushila Coding Level of Care Code Acute Code for Chg Fwd Diagnoses Acute on chronic renal insufficiency N28.9; N18.9
[2024-12-07 09:23] LABS: Anion Gap 20.5 (5-19); Blood Urea Nitrogen 53 mg/dL (8-23); Calcium 8.4 mg/dL (8.5-10.5); Carbon Dioxide 20 mmol/L (22-29); Chloride 98 mmol/L (98-107); Creatinine Clr Calc Pharmacy 19.7370; Glucose 239 mg/dL (65-115); NT Pro B Type Natriuretic Pept 16847 pg/mL (0-125); Osmolality Calculated 302 mOsm/kg (285-295); Potassium 3.5 mmol/L (3.5-5.1); Sodium 135 mmol/L (136-145)
--- NOTE | 2024-12-07 14:42 | P.PN_ITS ---
Subjective 2 Subjective: Overnight events noted, patient had acute hypoxic respiratory failure, did receive doses of IV push Lasix without response and was moved to ICU placed on Lasix drip he has had about 5 L of urine output over the last shift, he feels more comfortable, shortness of breath is improving, currently on 5 L nasal cannula, but plans on weaning down, no chest pain, palpitations, lightheadedness, dizziness Vitals/I&O/Wt Last Vital Signs Temp 98.5 F 12/07/24 09:06 Pulse 90 12/07/24 14:38 Resp 17 12/07/24 14:00 BP 146/65 12/07/24 14:00 Pulse Ox 94 12/07/24 14:00 O2 Del Method Nasal Cannula 12/07/24 14:00 O2 Flow Rate 5 12/07/24 08:01 FiO2 50 12/07/24 03:28 12/06/24 12/07/24 12/07/24 22:59 06:59 14:59 Intake Total 1050 / 1410 100 / 1510 485.5 / 485.5 Output Total 1750 / 2150 2910 / 5060 1100 / 1100 Balance -700 / -740 -2810 / -3550 -614.5 / -614.5 Weight last 48 hrs Weight 114.305 kg Weight 119.295 kg Weight 116.573 kg Weight 117.934 kg Physical Exam 2 Const: COMMON NORMALS: no acute distress and patient oriented x3 Resp: COMMON NORMALS: normal respiratory effort, No retractions and No use of accessory muscles AUSCULTATION: crackles Cardio: COMMON NORMALS: regular rate, regular rhythm, S1 normal heart sound present and S2 normal heart sound present RATE: regular rate RHYTHM: r egular rhythm HEART SOUNDS: S1 normal heart sound present and S2 normal heart sound present GI: COMMON NORMALS: Normal to inspection, nondistended, normoactive bowel sounds present and non-tender Extremity: NARRATIVE EXTREMITY EXAM: Left above-knee amputation site looks clean and dry Right surgical site, wrapped, normal) continue Neuro: COMMON NORMALS: patient oriented x3 Psych: COMMON NORMALS: mental status grossly normal Urinary Catheter Management: Martinez: Cath Placed During This Visit: yes Reason for Continuing Indwelling Catheter: Accurate Measurement of Urinary Output in Critically Ill Patients Urinary Catheter Date of Insertion: 12/06/24 Urinary Catheter Time of Insertion: 21:16 Data 12/07/24 03:21 12/07/24 08:49 Micro: Microbiology 12/05/24 12:06 Wound Culture - Preliminary Foot Right 12/05/24 16:20 Gram Stain - Final Foot - #1 Tissue Culture - Preliminary 12/05/24 11:24 Blood Culture - Preliminary Blood NEGATIVE TO DATE 12/05/24 11:10 Blood Culture - Preliminary Blood NEGATIVE TO DATE A&P Assessment and plan 1. Cellulitis of right foot: 2. CKD stage 4 secondary to hypertension: 3. Diabetes type 2, uncontrolled: 4. Hypertension: 5. CHF (congestive heart failure): 6. Acute hypoxic respiratory failure: 7. Small pleural effusion: Plan: Acute hypoxic respiratory failure - Secondary to diastolic CHF - With underlying chronic kidney disease stage 4-5 Plan - Monitor in ICU closely - Lasix drip - BMP every 6 hours Right foot cellulitis, deep tissue infection s/p incision and debridement down to myofascial layer right foot. Plan - MRI ordered MR/MR foot RT wo con* [id number] IMPRESSION: 1. Intramuscular edema and dorsal subcutaneous soft tissue edema. This is not specific. This can be seen with bland edema however infectious myositis or cellulitis is within the differential 2. Plantar soft tissue wound or blister. Again there is no underlying drainable fluid collection. 3. As compared to radiograph today, the forefoot is not adequately evaluated and specifically the middle and distal phalanx of the 2nd digit are not evaluated as the images included are of the hindfoot and midfoot primarily. - Arterial ultrasound US/[place] [id number] IMPRESSION: Patent right lower extremity arteries without focal stenosis identified. Monophasic waveforms in the calf arteries suggests some degree of peripheral arterial vascular disease. - Podiatry consulted - Vancomycin - Zosyn - Full code - Lovenox for DVT prophylaxis Type 2 diabetes mellitus - Moderate dose sliding scale - Lantus 10 units twice daily ALESIA on CKD, improving 4.8, IV diuresis as above - Nephrology consulted - Possible plans on dialysis based on clinical progress PDMP PDMP Reviewed: Not Reviewed Attestations 2 Medical Necessity Statement*: Patient requires hospitalization for acute hypoxic respiratory failure requiring Lasix drip, ALESIA on CKD, right foot cellulitis Diagnoses Cellulitis of right foot L03.115 CKD stage 4 secondary to hypertension I12.9; N18.4 Diabetes type 2, uncontrolled Hypertension I10 CHF (congestive heart failure) I50.9 Acute hypoxic respiratory failure J96.01 Small pleural effusion J90
[2024-12-07] MEDS: FUROsemide 10 mg/mL SDV 4mL 40 MG IVP (15:37)
[2024-12-07] MEDS: pantoprazole 40 mg SDV IVP (15:37)
--- NOTE | 2024-12-07 15:39 | P.PN_ITS ---
Subjective 2 Subjective: Patient seen bedside in ICU, transferred to ICU for fluid overload. Denies any pain to the right foot. Vitals/I&O/Wt Last Vital Signs Temp 98.6 F 12/07/24 13:00 Pulse 90 12/07/24 14:38 Resp 17 12/07/24 14:00 BP 146/65 12/07/24 14:00 Pulse Ox 94 12/07/24 14:00 O2 Del Method Nasal Cannula 12/07/24 14:00 O2 Flow Rate 5 12/07/24 08:01 FiO2 50 12/07/24 03:28 12/07/24 12/07/24 12/07/24 06:59 14:59 22:59 Intake Total 100 / 1510 522.25 / 522.25 Output Total 2910 / 5060 2100 / 2100 Balance -2810 / -3550 -1577.75 / -1577.75 Weight last 48 hrs Weight 252 lb Weight 263 lb Weight 257 lb Physical Exam 2 Narrative: GENERAL: Patient is alert and oriented ?3 and in no acute distress. The following is a focused right lower extremity exam. VASCULAR: Right dorsalis pedis and posterior tibial arteries are palpable. Capillary refill less than 3 seconds right great toe. Warmth right foot and anterior leg. Decreased pedal hair growth to the right lower extremity. Increased focal edema to the right second toe. NEUROLOGICAL: Protective sensation intact 0/10 sites, tested with [place] Vipin monofilament to right lower extremity. DERMATOLOGICAL: Wound with improved base, no devitalized tissue right plantar foot exposed to myofascial layer, continued cellulitis extending to the distal one third of the right leg. 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 History of left below-knee amputation, ambulates with prosthetic. No crepitus with soft tissue palpation right foot and ankle. Metatarsus adductus deformity to the right foot. Right forefoot varus deformity. Urinary Catheter Management: Martinez: Cath Placed During This Visit: yes Reason for Continuing Indwelling Catheter: Accurate Measurement of Urinary Output in Critically Ill Patients Urinary Catheter Date of Insertion: 12/06/24 Urinary Catheter Time of Insertion: 21:16 Data 12/07/24 03:21 12/07/24 15:00 Micro: Microbiology 12/05/24 12:06 Wound Culture - Preliminary Foot Right 12/05/24 16:20 Gram Stain - Final Foot - #1 Tissue Culture - Preliminary 12/05/24 11:24 Blood Culture - Preliminary Blood NEGATIVE TO DATE 12/05/24 11:10 Blood Culture - Preliminary Blood NEGATIVE TO DATE A&P Assessment and plan 1. CKD stage 4 secondary to hypertension: 2. Uncontrolled type 2 diabetes mellitus with hyperglycemia: 3. Acute diastolic congestive heart failure: 4. 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 Cellulitis of right foot: Plan: 59-year-old insulin-dependent diabetic male presents with new onset of right foot ulcer exposed to myofascial layer with streaking to the leg, wound is 1 week in duration. 2 days status post I&D right foot down to myofascial layer, wound cultures pending. Date of operation 12/05/2024 No further ascending cellulitis however there is residual cellulitis at the distal one third of the right leg. Continuing empiric antibiotics may narrow once cultures yield further information Nonweightbearing right foot No plans for further surgical intervention at this time. Betadine wet-to-dry right foot. Anticipating 2-week course of oral antibiotics at discharge once wound cultures yield further information, wound care clinic follow-up. 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
[2024-12-07 16:22] LABS: Anion Gap 21.7 (5-19); Blood Urea Nitrogen 54 mg/dL (8-23); Calcium 8.7 mg/dL (8.5-10.5); Carbon Dioxide 20 mmol/L (22-29); Chloride 95 mmol/L (98-107); Creatinine Clr Calc Pharmacy 18.9630; Glucose 308 mg/dL (65-115); Osmolality Calculated 302 mOsm/kg (285-295); Potassium 3.7 mmol/L (3.5-5.1); Sodium 133 mmol/L (136-145)
[2024-12-07] MEDS: insulin glargine 100 units/1 mL 15 UNIT SUBCUT (16:59)
--- NOTE | 2024-12-07 20:42 | PM.CONSULT ---
Providers/Reason For Consult Consulting Physician/Specialty*: kommana/Nephrology Reason for Consult*: ESRD Attending Physician: Heriberto Connors MD Primary Care Provider: MARK Kilpatrick History of Present Illness History of Present Illness Martir Kruger is a 59 year old male Medications/Allergies Home Medications ?Medication ?Instructions ?Recorded ?Confirmed ?Last Taken ?Type prosthetic leg sleeve #2 ea 11/11/23 12/05/24 Unknown Rx prosthetic supplies #1 ea 11/11/23 12/05/24 Unknown Rx bumetanide 2 mg tablet 2 mg PO DAILY #90 tabs 05/15/24 12/05/24 12/05/24 Rx hydralazine 50 mg tablet 50 mg PO TID #90 tabs 11/17/24 12/05/24 12/05/24 Rx insulin glargine 100 unit/mL (3 24 unit (0.24 mL) SUBCUT BID #15 mL 11/17/24 12/05/24 12/05/24 Rx mL) subcutaneous pen (Lantus Solostar U-100 Insulin) prosthetic sleeve and liners #1 ea 11/17/24 12/05/24 Unknown Rx flash glucose sensor (FreeStyle #2 kits 11/20/24 12/05/24 Unknown Rx Julius 2 Sensor kit) ezetimibe 10 mg tablet (Zetia) 10 mg PO DAILY #30 tabs 11/22/24 12/05/24 12/05/24 Rx amlodipine 10 mg tablet 10 mg PO BID 12/05/24 12/05/24 12/05/24 History insulin regular hum U-500 conc 500 24 unit SUBCUT TID 12/05/24 12/05/24 12/05/24 History unit/mL(3 mL) subcut pen (Humulin R U-500 (Conc) Insulin Kwikpen) metoprolol tartrate 25 mg tablet 25 mg PO BID 12/05/24 12/05/24 12/05/24 History Allergies Allergy/AdvReac Type Severity Reaction Status Date / Time No Known Allergies Allergy Verified 11/22/24 08:16 Current Medications Generic Name Dose Route Start Last Admin Trade Name Freq PRN Reason Stop Dose Admin Albuterol/Ipratropium 3 ml 12/06/24 21:14 12/06/24 21:19 Ipratropium-Albuterol 3 Ml Neb INHALATION 3 ml Q4H.RESPIRATORY PRN Administration SHORTNESS OF BREATH Amlodipine Besylate 10 mg 12/06/24 15:20 12/07/24 04:25 Amlodipine 10 Mg Tablet PO 10 mg DAILY MANUELA Administration Ezetimibe 10 mg 12/07/24 05:00 12/07/24 04:25 Ezetimibe 10 Mg Tablet PO 10 mg DAILY MANUELA Administration Enoxaparin Sodium 30 mg 12/06/24 21:00 12/07/24 20:36 Enoxaparin 30 Mg/0.3 Ml Syringe SUBCUT 30 mg Q24H MANUELA Administration Furosemide 40 mg 12/07/24 16:00 12/07/24 15:37 Furosemide 10 Mg/Ml Sdv 4ml IVP 40 mg Q8H MANUELA Administration Hydralazine HCl 50 mg 12/06/24 05:30 12/07/24 20:36 Hydralazine 50 Mg Tablet PO 50 mg TID MANUELA Administration Piperacillin Sod/Tazobactam 50 mls @ 12.5 mls/hr 12/05/24 17:00 12/07/24 16:59 Sod 3.375 gm/ Sodium Chloride IV 12.5 mls/hr Q12H MANUELA Administration Insulin Glargine 15 unit 12/07/24 17:00 12/07/24 16:59 Insulin Glargine 100 Units/1 Ml SUBCUT 15 unit BID@0500,1700 MANUELA Administration Insulin Human Lispro 0 unit 12/05/24 18:00 12/07/24 20:36 Insulin Lispro 100 Unit/1 Ml SUBCUT 10 unit WM&BEDTIME MANUELA Administration Protocol Metoprolol Tartrate 25 mg 12/06/24 05:30 12/07/24 16:58 Metoprolol Tartrate 25 Mg Tablet PO 25 mg BID MANUELA Administration Pantoprazole Sodium 40 mg 12/05/24 15:19 12/07/24 15:37 Pantoprazole 40 Mg Sdv IVP 40 mg Q24H MANUELA Administration PFSH Acute PFSH: Medical History (Updated 12/07/24 @ 14:44 by Heriberto Connors MD) Acute hypoxic respiratory failure Pulmonary edema Hypertension Diabetes type 2, uncontrolled Hyponatremia Acute kidney injury superimposed on chronic kidney disease Acute decompensated heart failure Fluid overload Hyperlipidemia Poorly fitting prosthesis for below knee amputation (BKA) Contrast-induced nephropathy Hypertensive crisis Need for dental care Migraine Intractable vomiting Acute on chronic kidney failure Hypertensive urgency Hyperosmolar hyperglycemic state (HHS) DKA (diabetic ketoacidosis) Prosthesis fitting Hypokalemia Hypertensive urgency Microscopic hematuria Nausea and vomiting Diabetes mellitus with gastroparesis Osteomyelitis Contrast dye induced nephropathy Acute renal failure superimposed on stage 3b chronic kidney disease Peripheral arterial disease Acquired rearfoot varus Diabetic peripheral neuropathy associated with type 2 diabetes mellitus 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 Chronic renal impairment Hyperlipidemia associated with type 2 diabetes mellitus Statin intolerance Foot abscess, left Diabetic foot infection Essential hypertension Hyperlipidemia, mixed Surgical History S/P hemodialysis catheter insertion S/P BKA (below knee amputation) (04/05/21) History of partial amputation of toe of right foot History of amputation of lesser toe Amputated toe of right foot secondary to osteomyelitis 4th right toe Family History Father Diabetes Mother Diabetes Other Hypertension Social History Smoking and tobacco/nicotine status: never used tobacco/nicotine Second hand smoke exposure: No Alcohol intake: former Substance/Drug Use: never Adopted: No Caregiver/support person: No Lives independently: Yes Household members: spouse Housing: House Marital status: service: No Current occupational status: employed Pets and animals: Yes Do you think of yourself as: Straight/Heterosexual Current gender identity: Male Vitals/I&O/Wt Last Vital Signs Temp 99.2 F 12/07/24 19:30 Pulse 89 12/07/24 20:30 Resp 21 H 12/07/24 20:30 BP 155/71 12/07/24 20:30 Pulse Ox 94 12/07/24 20:30 O2 Del Method Nasal Cannula 12/07/24 19:30 O2 Flow Rate 3 12/07/24 14:15 FiO2 50 12/07/24 03:28 12/07/24 12/07/24 12/07/24 06:59 14:59 22:59 Intake Total 100 / 1510 522.25 / 522.25 200 / 722.25 Output Total 2910 / 5060 2100 / 2100 1100 / 3200 Balance -2810 / -3550 -1577.75 / -1577.75 -900 / -2477.75 Weight last 48 hrs Weight 114.305 kg Weight 119.295 kg Weight 116.573 kg Physical Exam Urinary Catheter Management: Martinez: Cath Placed During This Visit: yes Reason for Continuing Indwelling Catheter: Accurate Measurement of Urinary Output in Critically Ill Patients Urinary Catheter Date of Insertion: 12/06/24 Urinary Catheter Time of Insertion: 21:16 Data 12/07/24 03:21 12/07/24 15:00 Micro: Microbiology 12/05/24 12:06 Wound Culture - Preliminary Foot Right 12/05/24 16:20 Gram Stain - Final Foot - #1 Tissue Culture - Preliminary A&P PDMP PDMP Reviewed: Not Reviewed Coding Level of Care Code Acute Code for Paula Ho
[2024-12-07 21:51] LABS: Anion Gap 21.5 (5-19); Blood Urea Nitrogen 54 mg/dL (8-23); Calcium 8.5 mg/dL (8.5-10.5); Carbon Dioxide 21 mmol/L (22-29); Chloride 97 mmol/L (98-107); Creatinine Clr Calc Pharmacy 17.2699; Glucose 270 mg/dL (65-115); Osmolality Calculated 306 mOsm/kg (285-295); Potassium 3.5 mmol/L (3.5-5.1); Sodium 136 mmol/L (136-145)
--- NOTE | 2024-12-07 22:00 | USCV_ITS ---
Martir Kruger Age: 59 Gender: M : 1965 Exam Date: 12/07/2024 16:42 Ordering Phys: Lorenza Hendrix MD Technologist: JENAE [place] [facility] [place]: SoB BP: 159 / 73 HR: 90 Rhythm: Sinus Technical Quality: Adequate MEASUREMENTS (Male / Female) Normal Values 2D ECHO LV Diastolic Diameter PLAX 5.0 cm 4.2 - 5.9 / 3.9 - 5.3 cm IVS Diastolic Thickness 1.7 cm 0.6 - 1.0 / 0.6 - 0.9 cm IVS Systolic Thickness 1.7 cm LVPW Diastolic Thickness 1.4 cm 0.6 - 1.0 / 0.6 - 0.9 cm LVPW Systolic Thickness 2.0 cm LVOT Diameter 2.1 cm LV Ejection Fraction 2D Teich 55.6 % LV Ejection Fraction MOD 4C 55.1 % LV Ejection Fraction MOD 2C 61.7 % LV Ejection Fraction 2C AL 65.6 % LA Diameter 3.9 cm RA Systolic Volume 4C AL 49.4 ml RA Systolic Volume 4C MOD 47.5 ml LA Sys Volume AL 55.0 cm cubed LA Sys Volume Index AL 22.9 cm cubed/m squared Aorta at Sinotubular Diameter 2.6 cm M-MODE LA Ao Ratio MM 1.0 AV Cusp Separation MM 2.2 cm DOPPLER AV Peak Velocity 100.0 cm/s LVOT Peak Velocity 96.0 cm/s AV Area Cont Eq vti 4.1 cm squared AV Area Cont Eq pk 3.3 cm squared MV Peak Velocity 173.0 cm/s MV Area PHT 5.2 cm squared Mitral E to A Ratio 10.0 TR Peak Velocity 95.0 cm/s TR Peak Gradient 3.6 mmHg TV Peak E Velocity 104.0 cm/s PV Peak Velocity 130.0 cm/s FINDINGS Left Ventricle Normal left ventricular size and systolic function, EF 55-60%. No regional wall motion abnormalities. Right Ventricle Normal in size and function Right Atrium Normal in size Left Atrium Normal in size IA Septum Grossly normal. Mitral Valve Structurally normal mitral valve. Mild mitral regurgitation. Aortic Valve Structurally normal aortic valve. No significant stenosis. Tricuspid Valve Not well visualized Pulmonic Valve Not well visualized Pericardium Normal Aorta Normal in size IVC Not visualized CONCLUSIONS Technically limited quality echocardiogram because of poor ultrasonic windows. LV systolic function is normal with EF of 55-60% Mild mitral regurgitation. Compared to prior echocardiogram from 2023, no significant changes are seen. Roscoe Garner MD (Electronically Signed) Final Date: 09 December 2024 10:06 S
[2024-12-08] VITALS (47 sets, daily range): BP systolic 127–179; BP diastolic 53–105; PULSE 77–112; RESP 12–26; TEMP 36.7–36.8; O2SAT 86–98
[2024-12-08] MEDS: FUROsemide 10 mg/mL SDV 4mL 40 MG IVP (00:22)
[2024-12-08 03:59] LABS: Hematocrit 30.5 % (37-53); Hemoglobin 9.80 g/dL (11.27-16.99); Mean Corpuscular HGB Conc 32.1 g/dL (30-55); Mean Corpuscular Hemoglobin 26.9 pg (27-33); Mean Corpuscular Volume 83.8 fl (82-101); Nucleated Red Blood Cells % 0 %; Platelet Count 260 10^3/cmm (157-399); Red Blood Count 3.64 10^6/uL (3.85-5.65); White Blood Count 8.24 10^3/uL (3.29-11.43)
[2024-12-08 04:15] LABS: INR 1.07 (0.8-1.2); Prothrombin Time 14.70 SECONDS (12.1-14.9)
[2024-12-08 04:25] LABS: Alanine Aminotransferase 23 U/L (0-41); Albumin Level 3.3 g/dL (3.5-5.2); Alkaline Phosphatase 88 U/L (40-130); Anion Gap 21.6 (5-19); Aspartate Amino Transferase 20 U/L (0-40); Blood Urea Nitrogen 56 mg/dL (8-23); Calcium 8.4 mg/dL (8.5-10.5); Carbon Dioxide 23 mmol/L (22-29); Chloride 97 mmol/L (98-107); Creatinine Clr Calc Pharmacy 17.2699; Globulin 2.7 g/dL (1.3-4.6); Glucose 245 mg/dL (65-115); Magnesium 2.3 mg/dL (1.7-2.3); Osmolality Calculated 310 mOsm/kg (285-295); Potassium 3.6 mmol/L (3.5-5.1); Sodium 138 mmol/L (136-145); Total Protein 6.0 g/dL (6.6-8.7)
[2024-12-08] MEDS: piperacillin-tazobactam 3.375 GM in sodium chloride 0.9% (plus) 50 ML IV ×2 (06:05→17:22)
[2024-12-08] MEDS: insulin glargine 100 units/1 mL 15 UNIT SUBCUT ×2 (06:11→17:47)
--- NOTE | 2024-12-08 09:33 | P.PN_ITS ---
Subjective 2 Subjective: good diuresis on lasix gtt Medications: Reviewed: Yes Vitals/I&O/Wt Last Vital Signs Temp 98.1 F 12/08/24 04:45 Pulse 78 12/08/24 08:03 Resp 16 12/08/24 08:03 BP 160/82 12/08/24 06:45 Pulse Ox 98 12/08/24 08:03 O2 Del Method Nasal Cannula 12/08/24 08:03 O2 Flow Rate 3 12/08/24 08:03 FiO2 50 12/07/24 03:28 12/07/24 12/08/24 12/08/24 22:59 06:59 14:59 Intake Total 200 / 722.25 50 / 772.25 Output Total 1100 / 3200 2250 / 5450 Balance -900 / -2477.75 -2200 / -4677.75 Weight last 48 hrs Weight 110.223 kg Weight 114.305 kg Weight 119.295 kg Physical Exam 2 Narrative: Patient is awake alert, no distress PERRLA No JVD S1-S2 regular rate and rhythm per report Lungs with crackles bilaterally per report Abdomen distended soft nontender per report Extremities left BKA and right lower extremityn Skin no rash Urinary Catheter Management: Martinez: Cath Placed During This Visit: yes Reason for Continuing Indwelling Catheter: Accurate Measurement of Urinary Output in Critically Ill Patients Urinary Catheter Date of Insertion: 12/06/24 Urinary Catheter Time of Insertion: 21:16 Data 12/08/24 03:35 12/08/24 03:35 Micro: Microbiology 12/05/24 12:06 Wound Culture - Preliminary Foot Right 12/05/24 16:20 Gram Stain - Final Foot - #1 Tissue Culture - Preliminary A&P Assessment and plan 1. Acute on chronic renal insufficiency: 1. Acute on chronic kidney disease stage IV: Baseline creatinine in the 4 range, now presents with right lower extremity cellulitis and has volume overload. Has ALESIA component likely from ATN due to acute infection/cellulitis and cardiorenal. Pt had good diuresis with lasix drip. switch to oral lasix -Cr above baseline but stable -watch renal fxn , and follow up outpt nephrology after DC - Will need close f/ups as pt likely will require HD intitation in the near future 2. Right lower extremity cellulitis antibiotics per primary team 3. Anemia: Check iron studies, will consider starting ALANIS 4. History of CHF, with preserved ejection fraction, diuretics as above Patient evaluated using audiovisual cart. Time spent 40 minutes. PDMP PDMP Reviewed: Not Reviewed Attestations 2 Medical Necessity Statement*: per sushila Coding Level of Care Code Acute Code for Chg Fwd Diagnoses Acute on chronic renal insufficiency N28.9; N18.9
--- NOTE | 2024-12-08 11:45 | PC.SOCIAL ---
IMM Update pg 2 of IMM Updated and reviewed w/ patient. Copy provided and copy dated, initialed and placed in chart.
--- NOTE | 2024-12-08 12:50 | P.PN_ITS ---
Subjective 2 Subjective: Patient was alert oriented x 3, following all commands he is shortness of breath is improved, edema improving, this is elevated creatinine 5.6 but has good urine output, discussed weaning off Lasix to p.o. Lasix, watching creatinine for another 24 hours, watch urine output, he agrees to proceed Vitals/I&O/Wt Last Vital Signs Temp 98.1 F 12/08/24 04:45 Pulse 80 12/08/24 12:00 Resp 19 H 12/08/24 12:00 BP 171/73 12/08/24 12:00 Pulse Ox 98 12/08/24 08:03 O2 Del Method Nasal Cannula 12/08/24 08:03 O2 Flow Rate 3 12/08/24 08:03 FiO2 50 12/07/24 03:28 12/07/24 12/08/24 12/08/24 22:59 06:59 14:59 Intake Total 200 / 722.25 50 / 772.25 50 / 50 Output Total 1100 / 3200 2250 / 5450 900 / 900 Balance -900 / -2477.75 -2200 / -4677.75 -850 / -850 Weight last 48 hrs Weight 110.223 kg Weight 114.305 kg Weight 119.295 kg Physical Exam 2 Const: COMMON NORMALS: no acute distress and patient oriented x3 Resp: COMMON NORMALS: normal respiratory effort, No retractions, No use of accessory muscles and clear to auscultation bilaterally AUSCULTATION: clear to auscultation bilaterally Cardio: COMMON NORMALS: regular rate, regular rhythm, S1 normal heart sound present and S2 normal heart sound present RATE: regular rate RHYTHM: r egular rhythm HEART SOUNDS: S1 normal heart sound present and S2 normal heart sound present GI: COMMON NORMALS: Normal to inspection, nondistended, normoactive bowel sounds present and non-tender Extremity: COMMON NORMALS: no calf tenderness and no pedal edema NARRATIVE EXTREMITY EXAM: Right lower extremity wrapped Left BKA Neuro: COMMON NORMALS: patient oriented x3 Psych: COMMON NORMALS: mental status grossly normal Urinary Catheter Management: Martinez: Cath Placed During This Visit: yes Reason for Continuing Indwelling Catheter: Accurate Measurement of Urinary Output in Critically Ill Patients Urinary Catheter Date of Insertion: 12/06/24 Urinary Catheter Time of Insertion: 21:16 Data 12/08/24 03:35 12/08/24 03:35 Micro: Microbiology 12/05/24 16:20 Gram Stain - Final Foot - #1 Tissue Culture - Final 12/05/24 12:06 Wound Culture - Final Foot Right A&P Assessment and plan 1. Cellulitis of right foot: 2. CKD stage 4 secondary to hypertension: 3. Diabetes type 2, uncontrolled: 4. Hypertension: 5. CHF (congestive heart failure): 6. Acute hypoxic respiratory failure: 7. Small pleural effusion: Plan: Acute hypoxic respiratory failure - Secondary to diastolic CHF - With underlying chronic kidney disease stage 4-5 Plan - Monitor in ICU closely - Lasix drip, wean to IV Lasix now to p.o. Lasix - Monitor BMP Right foot cellulitis, deep tissue infection s/p incision and debridement down to myofascial layer right foot. Plan - MRI ordered MR/MR foot RT wo con* [id number] IMPRESSION: 1. Intramuscular edema and dorsal subcutaneous soft tissue edema. This is not specific. This can be seen with bland edema however infectious myositis or cellulitis is within the differential 2. Plantar soft tissue wound or blister. Again there is no underlying drainable fluid collection. 3. As compared to radiograph today, the forefoot is not adequately evaluated and specifically the middle and distal phalanx of the 2nd digit are not evaluated as the images included are of the hindfoot and midfoot primarily. - Arterial [place] US/[place] [id number] IMPRESSION: Patent right lower extremity arteries without focal stenosis identified. Monophasic waveforms in the calf arteries suggests some degree of peripheral arterial vascular disease. - Podiatry consulted - Vancomycin, de-escalated to Zyvox - Zosyn - Full code - Lovenox for DVT prophylaxis Type 2 diabetes mellitus - Moderate dose sliding scale - Lantus 10 units twice daily ALESIA on CKD, improving 5.6, po diuresis as above - Nephrology consulted - Possible plans on dialysis based on clinical progress PDMP PDMP Reviewed: Not Reviewed Attestations 2 Medical Necessity Statement*: Patient requires hospitalization for acute hypoxic respiratory failure, CHF, with CKD, right foot cellulitis, Diagnoses Cellulitis of right foot L03.115 CKD stage 4 secondary to hypertension I12.9; N18.4 Diabetes type 2, uncontrolled Hypertension I10 CHF (congestive heart failure) I50.9 Acute hypoxic respiratory failure J96.01 Small pleural effusion J90
--- NOTE | 2024-12-08 13:33 | P.PN_ITS ---
Subjective 2 Subjective: Patient seen bedside this afternoon, sitting comfortably in a recliner. Denies any pain to the right foot. Vitals/I&O/Wt Last Vital Signs Temp 98.1 F 12/08/24 04:45 Pulse 80 12/08/24 12:00 Resp 19 H 12/08/24 12:00 BP 171/73 12/08/24 12:00 Pulse Ox 98 12/08/24 08:03 O2 Del Method Nasal Cannula 12/08/24 08:03 O2 Flow Rate 3 12/08/24 08:03 FiO2 50 12/07/24 03:28 12/07/24 12/08/24 12/08/24 22:59 06:59 14:59 Intake Total 200 / 722.25 50 / 772.25 50 / 50 Output Total 1100 / 3200 2250 / 5450 900 / 900 Balance -900 / -2477.75 -2200 / -4677.75 -850 / -850 Weight last 48 hrs Weight 243 lb Weight 252 lb Weight 263 lb Physical Exam 2 Narrative: GENERAL: Patient is alert and oriented ?3 and in no acute distress. The following is a focused right lower extremity exam. VASCULAR: Right dorsalis pedis and posterior tibial arteries are palpable. Capillary refill less than 3 seconds right great toe. Warmth right foot and anterior leg. Decreased pedal hair growth to the right lower extremity. Increased focal edema to the right second toe. NEUROLOGICAL: Protective sensation intact 0/10 sites, tested with [place] Vipin monofilament to right lower extremity. DERMATOLOGICAL: Resolved cellulitis/erythema to the right lower extremity. Mild fibrotic buildup at the right plantar foot wound without purulent drainage. 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 History of left below-knee amputation, ambulates with prosthetic. No crepitus with soft tissue palpation right foot and ankle. Metatarsus adductus deformity to the right foot. Right forefoot varus deformity. Urinary Catheter Management: Martinez: Cath Placed During This Visit: yes Reason for Continuing Indwelling Catheter: Accurate Measurement of Urinary Output in Critically Ill Patients Urinary Catheter Date of Insertion: 12/06/24 Urinary Catheter Time of Insertion: 21:16 Data 12/08/24 03:35 12/08/24 03:35 Micro: Microbiology 12/05/24 16:20 Gram Stain - Final Foot - #1 Tissue Culture - Final 12/05/24 12:06 Wound Culture - Final Foot Right A&P Assessment and plan 1. CKD stage 4 secondary to hypertension: 2. Uncontrolled type 2 diabetes mellitus with hyperglycemia: 3. Acute diastolic congestive heart failure: 4. 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 Cellulitis of right foot: Plan: 59-year-old insulin-dependent diabetic male presents with new onset of right foot ulcer exposed to myofascial layer with streaking to the leg, wound is 1 week in duration. 3 days status post I&D right foot down to myofascial layer, wound cultures pending. Date of operation 12/05/2024 No further ascending cellulitis however there is residual cellulitis at the distal one third of the right leg. Continuing empiric antibiotics may narrow once cultures yield further information Nonweightbearing right foot No plans for further surgical intervention at this time. Primary dressing to right foot wound Santyl followed by 4 x 4 gauze, Kerlix and Sylvester wrap. Anticipating 2-week course of oral antibiotics at discharge once wound cultures yield further information, wound care clinic follow-up. 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
[2024-12-08] MEDS: pantoprazole 40 mg SDV IVP (15:19)
[2024-12-08 17:25] LABS: Anion Gap 22.1 (5-19); Blood Urea Nitrogen 56 mg/dL (8-23); Calcium 8.7 mg/dL (8.5-10.5); Carbon Dioxide 22 mmol/L (22-29); Chloride 96 mmol/L (98-107); Creatinine Clr Calc Pharmacy 20.1957; Glucose 241 mg/dL (65-115); Osmolality Calculated 305 mOsm/kg (285-295); Potassium 4.1 mmol/L (3.5-5.1); Sodium 136 mmol/L (136-145)
--- NOTE | 2024-12-08 20:55 | PC.NURSE ---
Telemetry Patient stated he did not want to have telemetry wires on; telemetry removed.
[2024-12-09] VITALS (10 sets, daily range): BP systolic 151–164; BP diastolic 56–81; PULSE 77–86; RESP 14–16; TEMP 36.6–37.1; O2SAT 93–97
[2024-12-09 04:28] LABS: Hematocrit 33.2 % (37-53); Hemoglobin 10.60 g/dL (11.27-16.99); Mean Corpuscular HGB Conc 31.9 g/dL (30-55); Mean Corpuscular Hemoglobin 26.8 pg (27-33); Mean Corpuscular Volume 84.1 fl (82-101); Nucleated Red Blood Cells % 0 %; Platelet Count 286 10^3/cmm (157-399); Red Blood Count 3.95 10^6/uL (3.85-5.65); White Blood Count 7.89 10^3/uL (3.29-11.43)
[2024-12-09 04:59] LABS: Alanine Aminotransferase 31 U/L (0-41); Albumin Level 3.4 g/dL (3.5-5.2); Alkaline Phosphatase 109 U/L (40-130); Anion Gap 16.9 (5-19); Aspartate Amino Transferase 23 U/L (0-40); Blood Urea Nitrogen 55 mg/dL (8-23); Calcium 8.7 mg/dL (8.5-10.5); Carbon Dioxide 25 mmol/L (22-29); Chloride 98 mmol/L (98-107); Globulin 3.5 g/dL (1.3-4.6); Glucose 322 mg/dL (65-115); NT Pro B Type Natriuretic Pept 8285 pg/mL (0-125); Osmolality Calculated 310 mOsm/kg (285-295); Potassium 3.9 mmol/L (3.5-5.1); Sodium 136 mmol/L (136-145); Total Protein 6.9 g/dL (6.6-8.7)
[2024-12-09 05:03] LABS: Creatinine Clr Calc Pharmacy 18.2538
[2024-12-09] MEDS: piperacillin-tazobactam 3.375 GM in sodium chloride 0.9% (plus) 50 ML IV (05:58)
[2024-12-09] MEDS: insulin glargine 100 units/1 mL 15 UNIT SUBCUT (05:59)
--- NOTE | 2024-12-09 10:01 | P.PN_ITS ---
Subjective 2 Subjective: no new c/o Medications: Reviewed: Yes Vitals/I&O/Wt Last Vital Signs Temp 98 F 12/09/24 04:05 Pulse 77 12/09/24 08:53 Resp 16 12/09/24 08:53 BP 160/81 12/09/24 08:53 Pulse Ox 97 12/09/24 08:53 O2 Del Method Room Air 12/09/24 08:53 O2 Flow Rate 3 12/08/24 08:03 FiO2 50 12/07/24 03:28 12/08/24 12/09/24 12/09/24 22:59 06:59 14:59 Intake Total 50 / 100 315 / 415 100 / 100 Output Total 1000 / 1900 1775 / 3675 600 / 600 Balance -950 / -1800 -1460 / -3260 -500 / -500 Weight last 48 hrs Weight 115.53 kg Weight 110.223 kg Physical Exam 2 Narrative: Patient is awake alert, no distress PERRLA No JVD S1-S2 regular rate and rhythm per report Lungs with crackles bilaterally per report Abdomen distended soft nontender per report Extremities left BKA and right lower extremityn Skin no rash Urinary Catheter Management: Martinez: Cath Placed During This Visit: yes Reason for Continuing Indwelling Catheter: Accurate Measurement of Urinary Output in Critically Ill Patients Urinary Catheter Date of Insertion: 12/06/24 Urinary Catheter Time of Insertion: 21:16 Data 12/09/24 03:43 12/09/24 03:43 Micro: Microbiology 12/05/24 16:20 Gram Stain - Final Foot - #1 Tissue Culture - Final 12/05/24 12:06 Wound Culture - Final Foot Right A&P Assessment and plan 1. Acute on chronic renal insufficiency: 1. Acute on chronic kidney disease stage IV: Baseline creatinine in the 4 range, now presents with right lower extremity cellulitis and has volume overload. Has ALESIA component likely from ATN due to acute infection/cellulitis and cardiorenal. Pt had good diuresis with lasix drip. switched to oral lasix -Cr above baseline but stable -watch renal fxn , and follow up outpt nephrology after DC - has appointment on wednesday - Will need close f/ups as pt likely will require HD intitation in the near future 2. Right lower extremity cellulitis antibiotics per primary team 3. Anemia: Check iron studies, will consider starting ALANIS 4. History of CHF, with preserved ejection fraction, diuretics as above Patient evaluated using audiovisual cart. Time spent 40 minutes. PDMP PDMP Reviewed: Not Reviewed Attestations 2 Medical Necessity Statement*: per medicine Coding Level of Care Code Acute Code for Chg Fwd Diagnoses Acute on chronic renal insufficiency N28.9; N18.9
[2024-12-09] MEDS: albumin 25 G/100 ML BAG 60 G IV (10:27)
--- NOTE | 2024-12-09 11:48 | P.DS_ITS ---
Discharge Providers Date of Admission: 12/05/24 14:02 Date of Discharge: December 09, 2024 Attending Provider at Admission: Heriberto Connors MD Attending Provider at Discharge: Heriberto Connors MD Primary Care Provider: MARK Kilpatrick Diagnoses at Discharge Discharge Diagnosis 1. Acute on chronic renal insufficiency: Reason for Visit Reason for Visit: wound on R foot, pain, swelling Hospital Course Hospital Course Martir Kruger is a 59 year old male with a past medical history of type 2 diabetes mellitus, CKD stage IV, history of left above-knee amputation, who presents to [facility] due to increased pain, swelling warmth throughout right lower extremity, right foot, with complaints of fevers, chills. Currently patient is alert oriented x 3, follow commands, he has been on a course of clindamycin, he tells me that the right foot, has had swelling, eryt bettie, tenderness, warmth, he has an diabetic ulcer on the right foot, right plantar midfoot Right foot cellulitis, deep tissue infection s/p incision and debridement down to myofascial layer right foot. Plan - MRI ordered MR/MR foot RT wo con* [id number] IMPRESSION: 1. Intramuscular edema and dorsal subcutaneous soft tissue edema. This is not specific. This can be seen with bland edema however infectious myositis or cellulitis is within the differential 2. Plantar soft tissue wound or blister. Again there is no underlying drainable fluid collection. 3. As compared to radiograph today, the forefoot is not adequately evaluated and specifically the middle and distal phalanx of the 2nd digit are not evaluated as the images included are of the hindfoot and midfoot primarily. - Arterial ultrasound US/[place] [id number] IMPRESSION: Patent right lower extremity arteries without focal stenosis identified. Monophasic waveforms in the calf arteries suggests some degree of peripheral arterial vascular disease. - Podiatry consulted, intervention as above -Tolerated procedure well - Will be discharged with wound care, oral antibiotics and close follow-up with Dr. Shaffer Patient's hospitalization was complicated by acute hypoxic respiratory failure secondary to diastolic CHF with CKD stage 5 - Patient require ICU admission, Lasix drip, diuresed over 10 L - Clinically improved - Will be discharged with oral Lasix, oral potassium with close follow-up with nephrology to monitor potassium and creatinine - Discussed in detail with patient that at some point he will need dialysis, however for now he continues to have good urine output, creatinine and GFR remained stable - Follow-up with nephrology Physical Exam Const: COMMON NORMALS: no acute distress and patient oriented x3 Resp: COMMON NORMALS: normal respiratory effort, No retractions, No use of accessory muscles and clear to auscultation bilaterally AUSCULTATION: clear to auscultation bilaterally Cardio: COMMON NORMALS: regular rate, regular rhythm, S1 normal heart sound present and S2 normal heart sound present RATE: regular rate RHYTHM: regular rhythm HEART SOUNDS: S1 normal heart sound present and S2 normal heart sound present GI: COMMON NORMALS: Normal to inspection, nondistended, normoactive bowel sounds present and non-tender Extremity: COMMON NORMALS: capillary refill normal, no calf tenderness and no pedal edema Neuro: COMMON NORMALS: patient oriented x3 Psych: COMMON NORMALS: mental status grossly normal Skin: NARRATIVE SKIN EXAM: Right foot is wrapped, good cap refill,, able to move his toes, Left above-knee amputation Urinary Catheter Management: Martinez: Cath Placed During This Visit: yes Reason for Continuing Indwelling Catheter: Accurate Measurement of Urinary Output in Critically Ill Patients Urinary Catheter Date of Insertion: 12/06/24 Urinary Catheter Time of Insertion: 21:16 Discharge Data Studies Completed and Pending Completed Studies During Hospitalization Category Date Time Status XR chest 1V portable [id number] Stat Exams 12/06/24 20:52 Completed XR foot RT min 3V* [id number] Stat Exams 12/05/24 10:52 Completed MR foot RT wo con* [id number] Stat MRI 12/05/24 11:02 Completed CV. echo complete* [id number] Routine Ultrasound 12/07/24 22:00 Completed US arterial duplex lower extremity RT [CV arterial Ultrasound 12/05/24 15:[place] [id number]] Routine Pending at discharge Category Date Time Status BMP [Basic Metabolic Panel] Routine Lab 12/09/24 12:00 Ordered Blood Culture Stat Lab 12/05/24 11:24 Results Complete Blood Count w/Auto AM LABS Lab 12/10/24 04:00 Ordered Complete Blood Count w/Auto AM LABS Lab 12/11/24 04:00 Ordered Comprehensive Metabolic Panel AM LABS Lab 12/10/24 04:00 Ordered Comprehensive Metabolic Panel AM LABS Lab 12/11/24 04:00 Ordered NT Pro B Type Natriuretic Pept QAM Lab 12/10/24 06:00 Ordered NT Pro B Type Natriuretic Pept QAM Lab 12/11/24 06:00 Ordered Radiology Impressions Foot X-Ray 12/05/24 10:52 IMPRESSION: Possible mild destructive change of the distal 2nd digit. Osteomyelitis not excluded Foot MRI 12/05/24 11:02 IMPRESSION: 1. Intramuscular edema and dorsal subcutaneous soft tissue edema. This is not specific. This can be seen with bland edema however infectious myositis or cellulitis is within the differential 2. Plantar soft tissue wound or blister. Again there is no underlying drainable fluid collection. 3. As compared to radiograph today, the forefoot is not adequately evaluated and specifically the middle and distal phalanx of the 2nd digit are not evaluated as the images included are of the hindfoot and midfoot primarily. Duplex Scan Lower Extremity Artery 12/05/24 15:19 IMPRESSION: Patent right lower extremity arteries without focal stenosis identified. Monophasic waveforms in the calf arteries suggests some degree of peripheral arterial vascular disease. Chest X-Ray 12/06/24 20:52 IMPRESSION: Mild bibasilar atelectasis. Laboratory Results WBC 7.89 10^3/uL (3.29-11.43) 12/09/24 03:43 RBC 3.95 10^6/uL (3.85-5.65) 12/09/24 03:43 Hgb 10.60 g/dL (11.27-16.99) L 12/09/24 03:43 Hct 33.2 % (37-53) L 12/09/24 03:43 MCV 84.1 fl (82-101) 12/09/24 03:43 MCH 26.8 pg (27-33) L 12/09/24 03:43 MCHC 31.9 g/dL (30-55) 12/09/24 03:43 RDW 13.2 % (12.1-15.1) 12/09/24 03:43 Plt Count 286 10^3/cmm (157-399) 12/09/24 03:43 MPV 10.2 fL (7.4-10.4) 12/09/24 03:43 Neut % (Auto) 71.3 % 12/09/24 03:43 Lymph % (Auto) 15.7 % 12/09/24 03:43 Stokes % (Auto) 9.8 % 12/09/24 03:43 Eos % (Auto) 1.4 % 12/09/24 03:43 Baso % (Auto) 0.5 % 12/09/24 03:43 Neut # (Auto) 5.63 10^3/uL (1.8-7.7) 12/09/24 03:43 Lymph # (Auto) 1.2 10^3/uL (0.8-4.8) 12/09/24 03:43 Stokes # (Auto) 0.8 10^3/uL (0.2-0.9) 12/09/24 03:43 Eos # (Auto) 0.1 10^3/uL (0.0-0.8) 12/09/24 03:43 Baso # (Auto) 0.0 10^3/uL (0.0-0.1) 12/09/24 03:43 Nucleated RBC % (auto) 0 % 12/09/24 03:43 Nucleated RBCs # 0.0 /100WBC 12/09/24 03:43 ESR 41 mm/hr (0-10) H 12/05/24 11:10 PT 14.70 SECONDS (12.1-14.9) 12/08/24 03:35 INR 1.07 (0.8-1.2) 12/08/24 03:35 Sodium 136 mmol/L (136-145) 12/09/24 03:43 Potassium 3.9 mmol/L (3.5-5.1) 12/09/24 03:43 Chloride 98 mmol/L (98-107) 12/09/24 03:43 Carbon Dioxide 25 mmol/L (22-29) 12/09/24 03:43 Anion Gap 16.9 (5-19) 12/09/24 03:43 BUN 55 mg/dL (8-23) H 12/09/24 03:43 Creatinine 5.2 mg/dL (0.7-1.2) H 12/09/24 03:43 GFR Calculation 11.3 mL/min (90-130) L 12/09/24 03:43 Glucose 322 mg/dL (65-115) H 12/09/24 03:43 POC Glucose 259 mg/dL (70-110) H 12/09/24 11:28 Estimat Average Glucose 180 12/05/24 11:10 Hemoglobin A1c 7.9 % (4.0-6.0) H 12/05/24 11:10 Calculated Osmolality 310 mOsm/kg (285-295) H 12/09/24 03:43 Lactic Acid 1.5 mmol/L (0.5-2.2) 12/05/24 11:10 Calcium 8.7 mg/dL (8.5-10.5) 12/09/24 03:43 Phosphorus 5.4 mg/dL (2.5-4.5) H 12/08/24 03:35 Magnesium 2.3 mg/dL (1.7-2.3) 12/08/24 03:35 Total Bilirubin 0.3 mg/dL (0.15-1.2) 12/09/24 03:43 AST 23 U/L (0-40) 12/09/24 03:43 ALT 31 U/L (0-41) 12/09/24 03:43 Alkaline Phosphatase 109 U/L (40-130) 12/09/24 03:43 C-Reactive Protein 214.6 mg/L (0.0-4.9) H 12/05/24 11:10 NT-Pro-B Natriuret Pep 8285 pg/mL (0-125) H 12/09/24 03:43 Total Protein 6.9 g/dL (6.6-8.7) 12/09/24 03:43 Albumin 3.4 g/dL (3.5-5.2) L 12/09/24 03:43 Globulin 3.5 g/dL (1.3-4.6) 12/09/24 03:43 Triglycerides 201 mg/dL (0-150) H 12/05/24 11:10 Cholesterol 157 mg/dL (0-200) 12/05/24 11:10 LDL Cholesterol, Calc 81 mg/dL (50-129) 12/05/24 11:10 HDL Cholesterol 36 mg/dL (60-100) L 12/05/24 11:10 LDL/HDL Ratio 2.25 RATIO (0.00-3.22) 12/05/24 11:10 Cholesterol/HDL Ratio 4.36 mg/dL (1.0-5.00) 12/05/24 11:10 Procalcitonin 0.55 ng/mL (0-0.5) H 12/05/24 11:10 TSH 2.25 uIU/mL (0.27-4.20) 12/05/24 11:10 Urine Color Yellow (Yellow) 12/05/24 15:32 Urine Appearance Clear (CLEAR) 12/05/24 15:32 Urine pH 5.5 (5-7) 12/05/24 15:32 Ur Specific [place] 1.013 (1.005-1.030) 12/05/24 15:32 Urine Protein 3+ (Negative) A 12/05/24 15:32 Urine Glucose (UA) Trace (Normal) H 12/05/24 15:32 Urine Ketones Negative (Negative) 12/05/24 15:32 Urine Blood Negative (Negative) 12/05/24 15:32 Urine Nitrate Negative (Negative) 12/05/24 15:32 Urine Bilirubin Negative (Negative) 12/05/24 15:32 Urine Urobilinogen 0.2 mg/dL (Negative) 12/05/24 15:32 Ur Leukocyte Esterase Negative (Negative) 12/05/24 15:32 Urine RBC 0-4 /hpf (0-2) H 12/05/24 15:32 Urine WBC None /hpf (0-5) 12/05/24 15:32 Ur Squamous Epith Cells None /hpf (0-5) 12/05/24 15:32 Amorphous Sediment Not Reportable 12/05/24 15:32 Urine Bacteria None /hpf (NONE) 12/05/24 15:32 Urine Mucus None /hpf 12/05/24 15:32 Vancomycin Trough 14.7 ug/mL (10-15) 12/06/24 15:55 Random Vancomycin 11.1 ug/mL (20.0-40.0) L 12/08/24 03:35 Vitals Last Vital Signs Temp 98 F 12/09/24 04:05 Pulse 77 12/09/24 08:53 Resp 16 12/09/24 08:53 BP 164/80 12/09/24 10:37 Pulse Ox 94 12/09/24 10:37 O2 Del Method Room Air 12/09/24 10:37 O2 Flow Rate 3 12/08/24 08:03 FiO2 50 12/07/24 03:28 Discharge Plan Discharge Patient Disposition: Home Condition: Stable Prescriptions: New potassium chloride [Klor-Con M20] 20 mEq Tablet,Er Particles/Crystals 20 meq PO Q24H 30 Days Qty: 30 0RF doxycycline hyclate 100 mg tablet 100 mg PO BID 7 Days Qty: 14 0RF furosemide 40 mg Tablet 40 mg PO DAILY 30 Days Qty: 30 0RF clonidine HCl 0.1 mg tablet 0.1 mg PO BID 30 Days Qty: 60 0RF Continued ezetimibe [Zetia] 10 mg tablet 10 mg PO DAILY Qty: 30 0RF hydralazine 50 mg tablet 50 mg PO TID Qty: 90 1RF metoprolol tartrate 25 mg tablet 25 mg PO BID Changed insulin glargine [Lantus Solostar U-100 Insulin] 100 unit/mL (3 mL) insulin pen 20 unit SUBCUT BID Qty: 15 0RF amlodipine 10 mg tablet 10 mg PO DAILY 30 Days Qty: 30 0RF Humulin R U-500 (Conc) Kwikpen 500 unit/mL (3 mL) insulin pen See Rx Instructions .ROUTE .COMPLEX 30 Days Qty: 6 0RF Rx Instructions: Inject, subcut 3 times daily, after meals, based on moderate dose insulin sliding scale Discontinued bumetanide 2 mg tablet 2 mg PO DAILY Qty: 90 1RF No Action (DME) prosthetic sleeve and liners See Rx Instructions .Route .MEDSUPPLY Qty: 1 0RF Rx Instructions: As directed (DME) prosthetic leg sleeve See Rx Instructions .Route .MEDSUPPLY Qty: 2 2RF Rx Instructions: As directed (DME) prosthetic supplies See Rx Instructions .Route .MEDSUPPLY Qty: 1 0RF Rx Instructions: As directed (DME) FreeStyle Julius 2 Sensor Kit See Rx Instructions .ROUTE .COMPLEX Qty: 2 0RF Dose Instruction: apply ONE sensor AND CHANGE every 14 days Rx Instructions: apply ONE sensor AND CHANGE every 14 days Discharge Order = DC NOW: Discharge Order (Routine); Ordered 12/09/24 Ordered By: Heriberto Connors Referrals: Sarika Corbin, [employer] OPERATOR [Primary Care Provider, Family Practice] Discharge Diet: Diabetic Discharge Activity: Resume usual activity Patient Instructions: Acute Wound Care (DC), Opioid Safety, Post Anesthesia Care, Patient Portal & Marge Instructions Activity Restrictions/Additional Instructions: Instructions from Dr. Goodman Pryor/podiatry -Nonweightbearing right foot. -Elevate right foot while resting. -Take oral antibiotics as prescribed at discharge from hospitalist. -Perform once daily dressing change as follows: Apply Santyl directly to wound bed thickness of a nickel followed by 4 x 4 gauze, Kerlix and Sylvester wrap. -Follow-up in wound care clinic. - Please take antibiotics as prescribed -Please monitor your blood sugars closely -Monitor your blood sugars 3 times daily as after meals -Please record your blood sugars, and a blood sugar log -For your NovoLog -Please inject blood sugar after meals based on sliding scale provided -Do not inject insulin if you do not eat as hypoglycemia kills -This is a NovoLog sliding scale -Insulin sliding ?fingerstick? Insulin ?141-180?6 units/sq 181-220?8 units/sq ?221-260?10 units/sq ?261-300 12 units/sq ?301-350?14 units/sq ?351-400 16 units/sq ?401-450?18 units/sq >450? 20 units/sq -If your blood sugar is greater than 500 go to the emergency room -If your blood sugar is less than 60 or at anytime you feel lightheaded or dizzy or diaphoretic or have chest palpitations check your blood sugar, and eat a hard candy or drink orange juice and go immediately to the emergency room -Remember hypoglycemia kills, so if his blood sugar is less than 60 we have to increase it by taking in a sugary meal such as a hard candy or orange juice and go to the emergency room -If you have any questions please call us where here to help - Have your primary care provider recheck your kidney function next week - Creatinine 5.2, BUN 55, sodium 133, bicarb 25, anion gap 16.9 - Take Lasix 40 mg daily with potassium replacement therapy - If you gain more than 3 pounds, or are more short of breath, or develop edema take Lasix 40 twice daily with potassium 20 twice daily for total of 3 days in a row - If in 3 days you feel better then go back to Lasix 40 mg daily with 20 of potassium daily - But after 3 days if you continue to feel short of breath or have edema or weight gain go to the emergency room Discharge Attestations Time Spent in Discharge Care*: greater than 30 min Status at Discharge: Cognitive status at discharge: cognitively intact , Behavioral status at discharge: cooperative , Quality Metrics Clinical Quality Measures [ No reported AMI, CVA or VTE this stay] Coding Level of Care Code 28700 Total time (in minutes) for Discharge: 45 Diagnoses Acute on chronic renal insufficiency N28.9; N18.9
--- NOTE | 2024-12-09 12:46 | PC.NURSE ---
Discharge: Patient provided with verbal and written education regarding fluid and sodium restriction, follow up appointments with nephrology and PCP. Patient and educated on new medications including sliding scale. Patient educated on right foot dressing changes and nonweightbearing restriction. IV access removed. 'Patient and family had no questions.
== END 2024-12-09 12:00 | disposition home or self-care (01) | DRG 622 ==
LOC: ER 12:26 → MEDSURG 14:02 → ICU 12-06 23:31
PROVIDERS: Podiatrist Foot & Ankle Surgery; Student in an Organized Health Care Education/Training Program; Admitting Provider Family Medicine; Emergency Provider Emergency Medicine; PCP Nurse Practitioner Family; Visit Provider Family Medicine
PROC: 0KBV0ZZ Excision of Right Foot Muscle, Open Approach (ICD-10-PCS; principal; 2024-12-05 16:45)
DX: E11.621 Type 2 diabetes mellitus with foot ulcer (principal); I50.31 Acute diastolic (congestive) heart failure; J96.01 Acute respiratory failure with hypoxia; L97.413 Non-pressure chronic ulcer of right heel and midfoot with necrosis of muscle; I13.0 Hypertensive heart and chronic kidney disease with heart failure and stage 1 through stage 4 chronic kidney disease, or unspecified chronic kidney disease; L03.115 Cellulitis of right lower limb; E11.65 Type 2 diabetes mellitus with hyperglycemia; E11.22 Type 2 diabetes mellitus with diabetic chronic kidney disease; N18.4 Chronic kidney disease, stage 4 (severe); N17.0 Acute kidney failure with tubular necrosis; E11.42 Type 2 diabetes mellitus with diabetic polyneuropathy; E78.2 Mixed hyperlipidemia; Z79.4 Long term (current) use of insulin; Z89.512 Acquired absence of left leg below knee; Z89.421 Acquired absence of other right toe(s)
CPT/HCPCS: 36415; 36416; 51702; 71045; 73630; 73718; 80048; 80053; 80061; 80202; 81001; 82962; 83036; 83605; 83735; 83880; 84100; 84145; 84443; 85025; 85610; 85651; 86140; 87040; 87070; 87176; 87205; 93306; 93926; 94640; 94664; 96361; 96365; 96372; 96375; 99285; J0692; J1650; J1815; J1938; J2020; J2470; J2543; J2704; J3010; J3372; J7030; J7799; J9999; P9046

== ENCOUNTER → 2024-12-12 13:20 | Outpatient (BNVA) | payer MEDICARE, SELFPAY | PROVIDERS: PCP Nurse Practitioner Family; Visit Provider Thoracic Surgery (Cardiothoracic Vascular Surgery) | DX: E11.52 Type 2 diabetes mellitus with diabetic peripheral angiopathy with gangrene (principal); E11.621 Type 2 diabetes mellitus with foot ulcer; L97.412 Non-pressure chronic ulcer of right heel and midfoot with fat layer exposed | CPT/HCPCS: 11042; 87070; 87176; 87205; 99213 ==

== ENCOUNTER → 2024-12-18 08:57 | Outpatient (BNVA) | payer MEDICARE, SELFPAY | PROVIDERS: PCP Nurse Practitioner Family; Visit Provider Nurse Practitioner | DX: I12.9 Hypertensive chronic kidney disease with stage 1 through stage 4 chronic kidney disease, or unspecified chronic kidney disease (principal); N18.4 Chronic kidney disease, stage 4 (severe) | CPT/HCPCS: 80069 ==

== ENCOUNTER 2024-12-19 15:22 | Outpatient (CLI) | payer MEDICARE, SELFPAY ==
--- NOTE | 2024-12-19 16:00 | MRR_ITS ---
PROCEDURE INFORMATION: Exam: MR Right Lower Extremity Without Contrast; Forefoot Exam date and time: 12/19/2024 4:05 PM Age: 59 years old Clinical indication: Other: Foot ulcer 2nd toe; Prior surgery; Surgery date: <1 month; Additional info: E11.621 s/sx of worsening foot ulcer, attn 2nd toe. No pa needed/per radiologist patient's creatine level was too TECHNIQUE: Imaging protocol: MR of the right foot without contrast. Exam focused on the forefoot. COMPARISON: MR foot RT wo con* [id number] 12/05/2024 1:04 PM FINDINGS: There is diffuse edema right foot. Soft tissue induration most marked 2nd and 3rd toes and to a lesser extent 1st toe consistent with cellulitis. Soft tissue ulcer dorsal lateral aspect middle phalanx and distal phalanx 2nd toe. Osteomyelitis involving the middle phalanx and distal phalanx of the 2nd toe bony destruction. Only the base of the middle phalanx in the tip of the distal phalanx remains. MR/MR foot RT wo con* [id number] IMPRESSION: Diffuse edema right foot. Probable cellulitis 1st, 2nd, and 3rd toes most marked involving 2nd toe. Osteomyelitis with bony destruction of the majority of the middle and distal phalanx of the 2nd toe.
== END 2024-12-19 15:23 | disposition home or self-care (01) ==
LOC: RAD 15:24
PROVIDERS: PCP Nurse Practitioner Family; Visit Provider Thoracic Surgery (Cardiothoracic Vascular Surgery)
DX: E11.621 Type 2 diabetes mellitus with foot ulcer (principal); M86.171 Other acute osteomyelitis, right ankle and foot; R22.41 Localized swelling, mass and lump, right lower limb; M86.8X7 Other osteomyelitis, ankle and foot
CPT/HCPCS: 11043; 73718; 87070; 87077; 87176; 87186; 87205; A6251

== ENCOUNTER → 2024-12-26 14:42 | Outpatient (BNVA) | payer MEDICARE, SELFPAY | PROVIDERS: PCP Nurse Practitioner Family; Visit Provider Podiatrist Foot & Ankle Surgery | DX: E11.628 Type 2 diabetes mellitus with other skin complications (principal); L08.9 Local infection of the skin and subcutaneous tissue, unspecified; L97.513 Non-pressure chronic ulcer of other part of right foot with necrosis of muscle; M24.574 Contracture, right foot; L97.514 Non-pressure chronic ulcer of other part of right foot with necrosis of bone; E11.621 Type 2 diabetes mellitus with foot ulcer; Z79.4 Long term (current) use of insulin | CPT/HCPCS: 11043; 99214; A6252 ==

== ENCOUNTER 2024-12-28 10:07 | Day surgery (SDC) | payer MEDICARE, SELFPAY ==
[2024-12-28] VITALS (7 sets, daily range): BP systolic 125–154; BP diastolic 68–86; PULSE 69–73; RESP 16–17; TEMP 36.2–36.4; O2SAT 95–98; BMI 36.9
--- NOTE | 2024-12-28 10:55 | ANES.PREANE2 ---
Pre-Anesthetic Assessment Height/Weight: Height 5 ft 9 in Weight 250 lb Temp Pulse Resp BP Pulse Ox O2 Del Method 97.3 F L 73 17 154/75 98 Room Air 12/28/24 10:32 12/28/24 10:32 12/28/24 10:32 12/28/24 10:32 12/28/24 10:32 12/28/24 10:43 Preop Diagnosis: Osteomyelitis right foot Operation Date: 12/28/24 12:00 Proposed Procedures p posterior tibial tendon lengthening(Right) - Trace Shaffer DPM s second toe amputation(Right) - CESILIA Sheehan Incision and debridement right foot(Right) - Trace Shaffer DPM Last intake: Intake Last Liquid Date 12/27/24 Last Liquid Time 20:00 Last Solid Date 12/27/24 Last Solid Time 19:00 Anesthetic Plan Other: No prior issues with anesthesia NPO since yesterday evening History of hypertension on amlodipine and metoprolol preop BP 154/75 IDDM, preop BS 181 CKD stage IV Labs from 12/18/2024 reviewed acceptable for procedure. CR 5.1 at that time with stable electrolytes. This appears to be baseline Echo performed earlier this month showing EF of 55 to 60% with no RWMA Plan for general anesthesia Medications/Allergies Home Medications ?Medication ?Instructions ?Recorded ?Confirmed ?Last Taken ?Type prosthetic leg sleeve #2 11/11/23 12/26/24 Unknown Rx prosthetic supplies #1 ea 11/11/23 12/26/24 Unknown Rx hydralazine 50 mg tablet 50 mg PO TID #90 tabs 11/17/24 12/28/24 12/28/24 Rx prosthetic sleeve and liners #1 ea 11/17/24 12/26/24 Unknown Rx metoprolol tartrate 25 mg tablet 25 mg PO BID 12/05/24 12/28/24 12/28/24 History amlodipine 10 mg tablet 10 mg PO DAILY 30 days #30 tabs 12/09/24 12/27/24 12/27/24 Rx clonidine HCl 0.1 mg tablet 0.1 mg PO BID 30 days #60 tabs 12/09/24 12/27/24 12/27/24 Rx furosemide 40 mg tablet 40 mg PO DAILY 30 days #30 tabs 12/09/24 12/27/24 12/27/24 Rx insulin glargine 100 unit/mL (3 20 unit (0.2 mL) SUBCUT BID #15 mL 12/09/24 12/27/24 12/27/24 Rx mL) subcutaneous pen (Lantus Solostar U-100 Insulin) ciprofloxacin HCl 500 mg tablet 500 mg PO DAILY #14 tabs 12/25/24 12/27/24 12/27/24 Rx flash glucose sensor (FreeStyle #2 kits 12/26/24 12/26/24 Unknown Rx Julius 2 Sensor kit) insulin regular hum U-500 conc 500 1 unit SUBCUT TID 12/27/24 12/27/24 12/27/24 History unit/mL(3 mL) subcut pen (Humulin R U-500 (Conc) Insulin Kwikpen) Allergies Allergy/AdvReac Type Severity Reaction Status Date / Time No Known Allergies Allergy Verified 12/28/24 10:29 Current Medications Generic Name Dose Route Start Last Admin Trade Name Freq PRN Reason Stop Dose Admin Sodium Chloride 1,000 mls @ 30 mls/hr 12/28/24 10:30 12/28/24 10:49 Sodium Chloride 0.9% IV 12/29/24 10:29 30 mls/hr .Q24H MANUELA Administration PFSH Anesthesia Medical History (Updated 12/26/24 @ 14:49 by Trace Shaffer DPM) Acute hypoxic respiratory failure Pulmonary edema Hypertension Diabetes type 2, uncontrolled Hyponatremia Acute kidney injury superimposed on chronic kidney disease Acute decompensated heart failure Fluid overload Hyperlipidemia Poorly fitting prosthesis for below knee amputation (BKA) Contrast-induced nephropathy Hypertensive crisis Need for dental care Migraine Intractable vomiting Acute on chronic kidney failure Hypertensive urgency Hyperosmolar hyperglycemic state (HHS) DKA (diabetic ketoacidosis) Prosthesis fitting Hypokalemia Hypertensive urgency Microscopic hematuria Nausea and vomiting Diabetes mellitus with gastroparesis Osteomyelitis Contrast dye induced nephropathy Acute renal failure superimposed on stage 3b chronic kidney disease Peripheral arterial disease Acquired rearfoot varus Diabetic peripheral neuropathy associated with type 2 diabetes mellitus 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 Chronic renal impairment Hyperlipidemia associated with type 2 diabetes mellitus Statin intolerance Foot abscess, left Diabetic foot infection Essential hypertension Hyperlipidemia, mixed Surgical History S/P hemodialysis catheter insertion S/P BKA (below knee amputation) (04/05/21) History of partial amputation of toe of right foot History of amputation of lesser toe Amputated toe of right foot secondary to osteomyelitis 4th right toe Family History Father Diabetes Mother Diabetes Other Hypertension Social History Smoking and tobacco/nicotine status: never used tobacco/nicotine Second hand smoke exposure: No Alcohol intake: former Substance/Drug Use: never Adopted: No Caregiver/support person: No Lives independently: Yes Household members: spouse Housing: House Marital status: service: No Current occupational status: employed Pets and animals: Yes Do you think of yourself as: Straight/Heterosexual Current gender identity: Male Data Anesthesia Cardiac Studies: Echocardiogram 12/07/24 Sestamibi Stress Test (Cardiology) 09/23/20
--- NOTE | 2024-12-28 11:31 | W.PM.OPSUD ---
Surgery/Procedure H&P Update DATE OF PROCEDURE: December 28, 2024 DATE H&P PERFORMED: 12/26/24 H&P UPDATE INFORMATION: I have reviewed H&P completed within last 30 days, I have examined patient prior to procedure, No changes to prior documentation and Risks and benefits of the procedure reviewed PREOP DIAGNOSIS: Osteomyelitis right foot PLANNED PROCEDURE: Operation Date: 12/28/24 12:00 Proposed Procedures p posterior tibial tendon lengthening(Right) - Trace Shaffer DPM s second toe amputation(Right) - CESILIA Sheehan Incision and debridement right foot(Right) - Trace Shaffer DPM
[2024-12-28] MEDS: BUPivacaine 0.5% INJ 10 mL 20 ML INJECTION (11:59)
--- NOTE | 2024-12-28 12:45 | W.PM.BPON ---
Date of Procedure: 05/21/23 Surgeon: Trace Shaffer DPM Interior Plant Caretaker(s): Gaviota Procedure(s) performed: Right posterior tibial tendon lengthening, right second toe potation, right foot debridement down to myofascial layer. Findings of the procedure(s): Osteomyelitis right second toe Estimated blood loss: 2 mL Specimen(s) removed: Right second toe sent to pathology for permanent Post-operative diagnosis: Osteomyelitis right second toe. Tendon contracture right foot. Right foot ulcer.
--- NOTE | 2024-12-28 12:46 | P.OP_ITS ---
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 CPT code 32574 2) right second toe amputation. CPT code 23678 3) incision and debridement right foot. CPT code 31539 Implants: 2-0 Vicryl, 3-0 Vicryl, 3-0 nylon, 4-0 nylon Pathology: Right second toe sent to pathology for permanent Surgeon: Trace Shaffer DPM Anvil Seating Press Operator: Gaviota Estimated blood loss: 2 mL 31 IV fluids: See intraoperative documentation Urine output: None Complications: No complications Brief History: Surgical consultation consisting of right second toe amputation secondary to acute osteomyelitis involving the distal and intermediate phalanx secondary to a wound, MRI findings suggestive of osteomyelitis MRI performed 12/19/2024. 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 Discussed tendon balancing procedure will lengthen the posterior tibial tendon and plan for wound debridement with total contact casting. Procedure: Under mild sedation the patient was brought to the operating room and remained on the gurney in supine position. A timeout was performed. Anesthesia was then administered by the anesthesia service. Local anesthesia injected by myself one-to-one mixture 1% lidocaine and 0.5's Marcaine plain 30 cc total and a right 5 point ankle block fashion. Well-padded pneumatic tourniquet applied to the right ankle. The right lower extremity was scrubbed, prepped and draped utilizing normal aseptic technique. Right foot was then elevated and tourniquet inflated to 250 mmHg. Attention was directed the medial aspect of the right midfoot where a varus de formity was appreciated with primary means of contracture at the posterior tibial tendon, directly over the insertion of the posterior tibial tendon coursing proximal over the posterior tibialis tendon course a incision was made through skin with #15 blade with dissection carried down through subcutaneous tissue to the layer of tendon sheath of the posterior tibial tendon utilizing a combination of sharp and blunt technique. Care was taken to retract and preserve neurovascular and tendinous structures. All bleeders were ligated and cauterized as necessary. The posterior tibial tendon was isolated and a Z- plasty was performed lengthening the tendon to the allow neutral position of the right forefoot and midfoot under appropriate length and position this was then repaired utilizing 3-0 Vicryl. The incision was irrigated with copious amounts of sterile saline solution and the incision was closed in a layered fashion with subcutaneous tissue reapproximated 3-0 Vicryl and skin with 4-0 nylon. Attention was then directed to the right second toe which was noted to have a wound probes directly to bone at the distal phalanx indicative of osteomyelitis. A vertical semielliptical incision was performed at the level of the second metatarsal phalangeal joint through skin full-thickness and sharply disarticulated through the second metatarsal phalangeal joint and the second toe was passed from the operative field to be sent to pathology for gross anatomical review and permanent. Viable second metatarsal head and viable soft tissue margins appreciated the incision was irrigated with saline solution and closed in a layered fashion with myofascial layer reapproximated 2-0 Vicryl, subcutaneous tissue with 4-0 Vicryl and skin with 4-0 nylon. Attention was then directed to the plantar aspect of the right lateral foot where a wound exposed to myofascial layer measured 2 cm x 4.5 cm x 0.5 cm with devitalized epidermis, dermis and subcutaneous tissue down the myofascial layer which was sharply and excisionally debrided with pickups and a #15 blade of devitalized tissue. Postdebridement wound measurements 2.2 cm x 4.8 cm x 0.5 cm did not probe to bone. Improved viability and healthy bleeding wound bed was appreciated, hemostasis with failed manual pressure. The right plantar foot wound postdebridement was dressed with Xeroform. Incision sites were dressed with Xeroform, sterile 4 x 4 gauze, Kerlix, stockinette, Webril and fiberglass casting material with ankle joint in neutral position. Tourniquet was deflated and a prompt hyperemic response is noted to the remaining distal digits of the right foot. Patient tolerated the procedure and anesthesia well and was transferred to the PACU with vital signs stable vascular status intact. Following a period of postoperative monitoring we discharged home without home care instructions and scheduled follow-up.
== END 2024-12-28 13:28 | disposition home or self-care (01) ==
PROVIDERS: PCP Nurse Practitioner Family; Visit Provider Podiatrist Foot & Ankle Surgery
PROC: (CPT 28261; principal; 2024-12-28 12:00)
PROC: (CPT 27691; 2024-12-28 12:00)
PROC: (CPT 11044; 2024-12-28 12:00)
DX: E11.628 Type 2 diabetes mellitus with other skin complications (principal); L08.9 Local infection of the skin and subcutaneous tissue, unspecified; L97.514 Non-pressure chronic ulcer of other part of right foot with necrosis of bone; M24.574 Contracture, right foot; E11.22 Type 2 diabetes mellitus with diabetic chronic kidney disease; I12.9 Hypertensive chronic kidney disease with stage 1 through stage 4 chronic kidney disease, or unspecified chronic kidney disease; N18.4 Chronic kidney disease, stage 4 (severe); Z79.4 Long term (current) use of insulin; E78.2 Mixed hyperlipidemia
CPT/HCPCS: 27691; 28820; 28002; 36416; 82962; 88305; 88311; J2704; J3010; J3490; J7030; J9999

== ENCOUNTER → 2025-01-02 09:23 | Outpatient (BNVA) | payer MEDICARE, SELFPAY | PROVIDERS: PCP Nurse Practitioner Family; Visit Provider Thoracic Surgery (Cardiothoracic Vascular Surgery) | DX: E11.52 Type 2 diabetes mellitus with diabetic peripheral angiopathy with gangrene (principal); E11.621 Type 2 diabetes mellitus with foot ulcer; L97.412 Non-pressure chronic ulcer of right heel and midfoot with fat layer exposed | CPT/HCPCS: 11042; A6213 ==

== ENCOUNTER → 2025-01-04 08:24 | Outpatient (BNVA) | payer MEDICARE, SELFPAY | PROVIDERS: PCP Nurse Practitioner Family; Visit Provider Thoracic Surgery (Cardiothoracic Vascular Surgery) | DX: E11.52 Type 2 diabetes mellitus with diabetic peripheral angiopathy with gangrene (principal); E11.621 Type 2 diabetes mellitus with foot ulcer; L97.421 Non-pressure chronic ulcer of left heel and midfoot limited to breakdown of skin | CPT/HCPCS: 29445; A6252 ==

== ENCOUNTER → 2025-01-09 08:17 | Outpatient (BNVA) | payer MEDICARE, SELFPAY | PROVIDERS: PCP Nurse Practitioner Family; Visit Provider Thoracic Surgery (Cardiothoracic Vascular Surgery) | DX: E11.52 Type 2 diabetes mellitus with diabetic peripheral angiopathy with gangrene (principal); E11.621 Type 2 diabetes mellitus with foot ulcer; L97.411 Non-pressure chronic ulcer of right heel and midfoot limited to breakdown of skin | CPT/HCPCS: 97597; A6213; A6252 ==

== ENCOUNTER → 2025-01-12 08:18 | Outpatient (BNVA) | payer MEDICARE, SELFPAY | PROVIDERS: PCP Nurse Practitioner Family; Visit Provider Thoracic Surgery (Cardiothoracic Vascular Surgery) | DX: E11.52 Type 2 diabetes mellitus with diabetic peripheral angiopathy with gangrene (principal); E11.621 Type 2 diabetes mellitus with foot ulcer; L97.411 Non-pressure chronic ulcer of right heel and midfoot limited to breakdown of skin | CPT/HCPCS: 97597; A6210 ==

== ENCOUNTER → 2025-01-15 14:23 | Outpatient (BNVA) | payer MEDICARE, SELFPAY | PROVIDERS: PCP Nurse Practitioner Family; Visit Provider Thoracic Surgery (Cardiothoracic Vascular Surgery) | DX: E11.52 Type 2 diabetes mellitus with diabetic peripheral angiopathy with gangrene (principal); E11.621 Type 2 diabetes mellitus with foot ulcer; L97.411 Non-pressure chronic ulcer of right heel and midfoot limited to breakdown of skin | CPT/HCPCS: 29445; A6252 ==

== ENCOUNTER → 2025-01-19 08:05 | Outpatient (BNVA) | payer MEDICARE, SELFPAY | PROVIDERS: PCP Nurse Practitioner Family; Visit Provider Thoracic Surgery (Cardiothoracic Vascular Surgery) | DX: E11.52 Type 2 diabetes mellitus with diabetic peripheral angiopathy with gangrene (principal); E11.621 Type 2 diabetes mellitus with foot ulcer; L97.411 Non-pressure chronic ulcer of right heel and midfoot limited to breakdown of skin | CPT/HCPCS: 29445; A6213; A6252 ==

== ENCOUNTER → 2025-01-22 09:33 | Outpatient (BNVA) | payer MEDICARE, SELFPAY | PROVIDERS: PCP Nurse Practitioner Family; Visit Provider Thoracic Surgery (Cardiothoracic Vascular Surgery) | DX: E11.52 Type 2 diabetes mellitus with diabetic peripheral angiopathy with gangrene (principal); E11.621 Type 2 diabetes mellitus with foot ulcer; L97.411 Non-pressure chronic ulcer of right heel and midfoot limited to breakdown of skin | CPT/HCPCS: 29445; A6213; A6252 ==

== ENCOUNTER → 2025-01-26 08:44 | Outpatient (BNVA) | payer MEDICARE, SELFPAY | PROVIDERS: PCP Nurse Practitioner Family; Visit Provider Thoracic Surgery (Cardiothoracic Vascular Surgery) | DX: E11.52 Type 2 diabetes mellitus with diabetic peripheral angiopathy with gangrene (principal); E11.621 Type 2 diabetes mellitus with foot ulcer; L97.411 Non-pressure chronic ulcer of right heel and midfoot limited to breakdown of skin | CPT/HCPCS: 99212; A6252 ==

== ENCOUNTER → 2025-01-30 10:42 | Outpatient (BNVA) | payer MEDICARE, SELFPAY | PROVIDERS: PCP Nurse Practitioner Family; Visit Provider Registered Nurse | DX: I12.9 Hypertensive chronic kidney disease with stage 1 through stage 4 chronic kidney disease, or unspecified chronic kidney disease (principal); N18.4 Chronic kidney disease, stage 4 (severe) | CPT/HCPCS: 80069; 82043; 85025 ==

== ENCOUNTER → 2025-01-31 09:48 | Outpatient (BNVA) | payer MEDICARE, SELFPAY | PROVIDERS: PCP Nurse Practitioner Family; Visit Provider Thoracic Surgery (Cardiothoracic Vascular Surgery) | DX: E11.52 Type 2 diabetes mellitus with diabetic peripheral angiopathy with gangrene (principal); E11.621 Type 2 diabetes mellitus with foot ulcer; L97.411 Non-pressure chronic ulcer of right heel and midfoot limited to breakdown of skin | CPT/HCPCS: 97597 ==

== ENCOUNTER 2025-02-07 08:57 | Outpatient (CLI) | payer MEDICARE, SELFPAY | END 2025-02-07 08:58 | disposition home or self-care (01) | LOC: SPT 08:59 | PROVIDERS: PCP Nurse Practitioner Family; Visit Provider Thoracic Surgery (Cardiothoracic Vascular Surgery) | DX: Z46.89 Encounter for fitting and adjustment of other specified devices (principal); L97.512 Non-pressure chronic ulcer of other part of right foot with fat layer exposed | CPT/HCPCS: 97597; A6252; L4361 ==

== ENCOUNTER → 2025-02-14 08:49 | Outpatient (BNVA) | payer MEDICARE, SELFPAY | PROVIDERS: PCP Nurse Practitioner Family; Visit Provider Thoracic Surgery (Cardiothoracic Vascular Surgery) | DX: E11.52 Type 2 diabetes mellitus with diabetic peripheral angiopathy with gangrene (principal); E11.621 Type 2 diabetes mellitus with foot ulcer; L97.415 Non-pressure chronic ulcer of right heel and midfoot with muscle involvement without evidence of necrosis; Z09 Encounter for follow-up examination after completed treatment for conditions other than malignant neoplasm | CPT/HCPCS: 97597; A6252 ==

== ENCOUNTER 2025-02-15 20:52 | Inpatient (IN) | payer MEDICARE, SELFPAY ==
[2025-02-15] VITALS (14 sets, daily range): BP systolic 157–174; BP diastolic 77–86; PULSE 87–97; RESP 15–26; TEMP 36.9; O2SAT 88–95; BMI 39.7
--- OUTSIDE RECORDS SUMMARY | 2025-02-15 21:01 | XMS_ITS | Encounter Summary ---
Author Organization [facility] Address [address] [place] [address] Care Team Providers Care Fisher Clam Name Role Phone Sarika Corbin Primary Care Provider [phone] Encounter Details Date Type Department Care Team (Late st Contact Info) Description 02/15/2025 Abstract [facility] Vascular Surgery [place] [address] [place] [address] Mary Jennings MD [address] [place] [address] Social History Tobacco Use Types Packs/Day Years Used Date Smoking Tobacco: Never Smokeless Tobacco: Never Alcohol Use Standard Drinks/Week Comments Not Currently 0 (1 standard drink = 0.6 oz pur e alcohol) Sex and Gender Information Value Date Recorded Sex Assigned at Not on file 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
--- OUTSIDE RECORDS SUMMARY | 2025-02-15 21:01 | XMS_ITS | Clinical Summary ---
Author Organization [employer] Address [address] [facility] Attn: Epic Prelude ADT [place] [address] Care Team Providers Care Sourcing Associate Name Role Phone [place] Sarika Carmen FLORES Primary Care Provider Allergies No known active [...] 2,000 mg by mouth daily with breakfast. 8 Active cephALEXin (KEFLEX) 500 mg capsule Take 1 Capsule (500 mg) by mouth 4 times daily. 8 Active insulin detemir U-100 (LEVEMIR) 100 unit/mL pen syringe Inject 50 Units by subcutaneous injection daily with breakfast. 8 Active aspirin (IAN) 325 mg tablet Take 325 mg by mouth daily. 8 Active lisinopriL (PRINIVIL) 2.5 mg tablet Take 2.5 mg by mouth daily. 8 Active multivitamin (DAILY-PREMA) tablet Take 1 Tablet by mouth daily. 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 Gender Identity Not on file Sexual Orientation Not on file Last Filed Vital Signs Vital Sign Reading Time Taken Comments Blood Pressure 170/92 05/07/2021 9:00 PM ROLL FORMER Pulse 95 05/07/2021 9:00 PM ROLL FORMER Temperature 36.4 C (97.6 F) 05/07/2021 4:57 PM ROLL FORMER Respiratory Rate 14 05/07/2021 9:00 PM ROLL FORMER Oxygen Saturation 93% 05/07/2021 9:00 PM ROLL FORMER Inhaled Oxygen Concentration - - Weight 106.1 kg (233 lb 12.8 oz) 05/07/2021 4:57 PM ROLL FORMER Height 175.3 cm (5' 9 ) 05/07/2021 4:57 PM ROLL FORMER Body Mass Index 34.53 05/07/2021 4:57 PM ROLL FORMER Plan of Treatment Health Maintenance Due Date Last Done Comments DIABETES ANNUAL FOOT EXAM 1981 DIABETES ANNUAL RETINAL EXAM 1981 DIABETES MICROALBUMIN ANNUAL SCREEN 1981 LDL CHOLESTEROL ANNUAL 1981 DTAP/TDAP/TD VACCINES (1 - Tdap) 1982 COLORECTAL SCREENING 02/20/2008 Colorectal Cancer Screening 02/20/2008 FIT-DNA Q 3 years 02/20/2008 FIT/FOBT Q 1 year 02/20/2008 Flex Sig/CT Colonography Q 5 years 02/20/2008 RSV VACCINE (60+ or ) (1 - Risk 50-74 years 1-dose series) 2013 ZOSTER VACCINE (1 of 2) 2013 DIABETES HBA1C Q 6 MONTHS 05/14/2023 11/13/2022 Preventative Visit- Commercial 03/08/2024 INFLUENZA VACCINE (#1) 2024 Insurance [facility] Care Teams Sourcing Associate Relationship Specialty Start Date End Date Sarika Corbin FNP [address] [place] [phone] PCP - General Nurse Practitioner Family 10/28/20
--- NOTE | 2025-02-15 23:04 | XRR_ITS ---
PROCEDURE INFORMATION: Exam: XR Chest Exam date and time: 02/15/2025 11:04 PM Age: 59 years old Clinical indication: Shortness of breath TECHNIQUE: Imaging protocol: Radiologic exam of the chest. Views: 1 view. COMPARISON: CR XR chest 1V portable [id number] 12/06/2024 8:59 PM FINDINGS: Lungs: Unremarkable. No consolidation. Pleural spaces: Unremarkable. No pleural effusion. No pneumothorax. Heart/Mediastinum: Unremarkable. No cardiomegaly. Bones/joints: Unremarkable. XR/XR chest 1V portable [id number] IMPRESSION: No acute findings.
--- NOTE | 2025-02-15 23:05 | ECG_ITS ---
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: : 1965 Requested By: Katie Martinez Order Number: [id number] Reading MD: CAROLYN MIRANDA Measurements Intervals [place] Rate: 88 P: 71 LA: 313 QRS: 61 QRSD: 89 T: 53 QT: 366 QTc: 444 Interpretive Statements SINUS RHYTHM WITH FIRST DEGREE AV BLOCK POSSIBLE LEFT ATRIAL ENLARGEMENT [-0.1mV P-WAVE IN V1/V2] NONSPECIFIC T-WAVE ABNORMALITY Compared to ECG 11/15/2023 10:35:54 T-wave abnormality now present Electronically Signed On 02-16-2025 18:30:45 SECURITY SERVICES SPECIALIST by CAROLYN MIRANDA [id number]
[2025-02-15 23:13] LABS: Hematocrit 36.2 % (37-53); Hemoglobin 11.50 g/dL (11.27-16.99); Mean Corpuscular HGB Conc 31.8 g/dL (30-55); Mean Corpuscular Hemoglobin 26.6 pg (27-33); Mean Corpuscular Volume 83.8 fl (82-101); Nucleated Red Blood Cells % 0 %; Platelet Count 406 10^3/cmm (157-399); Red Blood Count 4.32 10^6/uL (3.85-5.65); White Blood Count 15.36 10^3/uL (3.29-11.43)
[2025-02-15] MEDS: FUROsemide 10 mg/mL SDV 10mL 60 MG IVP (23:15)
--- NOTE | 2025-02-15 23:43 | W.ED.GENADLT ---
HPI - General Adult General: Chief complaint: Shortness of Breath/Dyspnea Stated complaint: cant catch breath n/v kidney failure Time Seen by Provider: 02/15/25 21:38 History of Present Illness: 59-year-old male with a past medical history of type 2 diabetes, CKD stage IV, history of left xkyzp-nvt-ofom amputation presents with a chief complaint of shortness of breath for 1 day. Patient denies fever, runny nose, sore throat, cough, hemoptysis, chest pain or syncope. He denies abdominal pain, nausea or vomiting. Patient reports worsening swelling/edema in the right lower extremity. Patient states that he takes 40 mg of Lasix. He states that he has had similar symptoms previously and feels that he has volume overload due to poorly functioning kidneys. Limited echo in Dec of 2024 shows: CONCLUSIONS Technically limited quality echocardiogram because of poor ultrasonic windows. LV systolic function is normal with EF of 55-60% Mild mitral regurgitation. Compared to prior echocardiogram from 2023, no significant changes are seen. Related Data Home Medications ?Medication ?Instructions ?Recorded ?Confirmed metoprolol tartrate 25 mg tablet 25 mg PO BID 12/05/24 02/14/25 Previous Rx's ?Medication ?Instructions ?Recorded prosthetic leg sleeve #2 ea 11/11/23 prosthetic supplies #1 ea 11/11/23 prosthetic sleeve and liners #1 ea 11/17/24 amlodipine 10 mg tablet 10 mg PO DAILY 30 days #30 tabs 12/09/24 flash glucose sensor (FreeStyle #2 kits 02/05/25 Julius 2 Sensor kit) furosemide 40 mg tablet (Lasix) 40 mg PO QAM #90 tabs 02/05/25 hydralazine 50 mg tablet 50 mg PO TID #90 tabs 02/12/25 insulin glargine 100 unit/mL (3 See Rx Instructions .Route 02/14/25 mL) subcutaneous pen (Lantus .COMPLEX #15 mL Solostar U-100 Insulin) insulin regular hum U-500 conc 500 See Rx Instructions .Route 02/14/25 unit/mL(3 mL) subcut pen (Humulin .COMPLEX #12 mL R U-500 (Conc) Insulin Kwikpen) Allergies Allergy/AdvReac Type Severity Reaction Status Date / Time No Known Allergies Allergy Verified 12/28/24 10:29 PFS ED PFSH: Medical History (Updated 02/16/25 @ 00:41 by Katie Martinez MD) Acute hypoxic respiratory failure Pulmonary edema Hypertension Diabetes type 2, uncontrolled Hyponatremia Acute kidney injury superimposed on chronic kidney disease Acute decompensated heart failure Fluid overload Hyperlipidemia Poorly fitting prosthesis for below knee amputation (BKA) Contrast-induced nephropathy Hypertensive crisis Need for dental care Migraine Intractable vomiting Acute on chronic kidney failure Hypertensive urgency Hyperosmolar hyperglycemic state (HHS) DKA (diabetic ketoacidosis) Prosthesis fitting Hypokalemia Hypertensive urgency Microscopic hematuria Nausea and vomiting Diabetes mellitus with gastroparesis Osteomyelitis Contrast dye induced nephropathy Acute renal failure superimposed on stage 3b chronic kidney disease Peripheral arterial disease Acquired rearfoot varus Diabetic peripheral neuropathy associated with type 2 diabetes mellitus 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 Chronic renal impairment Hyperlipidemia associated with type 2 diabetes mellitus Statin intolerance Foot abscess, left Diabetic foot infection Essential hypertension Hyperlipidemia, mixed Surgical History S/P hemodialysis catheter insertion S/P BKA (below knee amputation) (04/05/21) History of partial amputation of toe of right foot History of amputation of lesser toe Amputated toe of right foot secondary to osteomyelitis 4th right toe Family History Father Diabetes Mother Diabetes Other Hypertension Social History Smoking and tobacco/nicotine status: never used tobacco/nicotine Second hand smoke exposure: No Alcohol intake: former Substance/Drug Use: never Adopted: No Caregiver/support person: No Lives independently: Yes Household members: spouse Housing: House Marital status: service: No Current occupational status: employed Pets and animals: Yes Do you think of yourself as: Straight/Heterosexual Current gender identity: Male Physical Exam Narrative: EXAM NARRATIVE: Vital signs were reviewed. Patient is alert and oriented. Patient is maintaining SpO2 above 92% on RA at rest. He has no wheezing or rhonchi but does have bibasilar crackles. No hypotension or tachycardia. Abdomen is soft, nondistended and nontender. Patient is moving all extremities, no deformity or gross injury. +RLE edema. L AKA. Course Vital Signs: Vital signs: Vital Signs Temperature 98.5 F 02/15/25 20:53 Pulse Rate 91 12/12/25 00:15 Respiratory Rate 18 02/16/25 00:15 Blood Pressure 173/82 02/16/25 00:15 Pulse Oximetry 94 02/16/25 00:15 Oxygen Delivery Me thod Nasal Cannula 02/15/25 21:46 Oxygen Flow Rate 2 02/15/25 21:46 MDM - General Adult Medical Decision Making 59-year-old male with a past medical history of type 2 diabetes, CKD stage IV presents with a chief complaint of dyspnea and exertional dyspnea for 1 day. Differential diagnosis includes symptoms limited to, viral upper respiratory infection, pneumonia, bronchitis, pleural effusion, pulmonary edema, CHF, ACS, pericardial effusion, COPD/asthma. On initial exam, patient is hemodynamically stable though he is more comfortable on 2 L of supplemental oxygen. He is able to maintain SpO2 above 92% on room air. Patient was evaluated with CBC, BMP, troponin, BNP, COVID and flu screen, EKG and chest x-ray. Patient was treated with 60 of IV Lasix. Patient has an elevated white blood cell count but is not anemic. Creatinine is baseline. Potassium is mildly elevated, will repeat. Troponin is significantly elevated from baseline, there is no significant delta and EKG is stable without evolution or STEMI. PE is a consideration but discussed CT PE, patient declined due to risk of damaging kidneys further. Patient would benefit from observation/ACS rule out, possible further testing to rule out a pulmonary embolus. Patient was admitted. Lab Data 02/15/25 21:39 02/15/25 21:39 Radiology Impressions Chest X-Ray 02/15/25 23:04 IMPRESSION: No acute findings. Laboratory Results WBC 15.36 10^3/uL (3.29-11.43) H 02/15/25 21:39 RBC 4.32 10^6/uL (3.85-5.65) 02/15/25 21:39 Hgb 11.50 g/dL (11.27-16.99) 02/15/25 21:39 Hct 36.2 % (37-53) L 02/15/25 21:39 MCV 83.8 fl (82-101) 02/15/25 21:39 MCH 26.6 pg (27-33) L 02/15/25 21:39 MCHC 31.8 g/dL (30-55) 02/15/25 21:39 RDW 13.9 % (12.1-15.1) 02/15/25 21:39 Plt Count 406 10^3/cmm (157-399) H 02/15/25 21:39 MPV 10.1 fL (7.4-10.4) 02/15/25 21:39 Neut % (Auto) 87.0 % 02/15/25 21:39 Lymph % (Auto) 6.6 % 02/15/25 21:39 [place] % (Auto) 5.5 % 02/15/25 21:39 Eos % (Auto) 0.2 % 02/15/25 21:39 Baso % (Auto) 0.2 % 02/15/25 21:39 Neut # (Auto) 13.36 10^3/uL (1.8-7.7) H 02/15/25 21:39 Lymph # (Auto) 1.0 10^3/uL (0.8-4.8) 02/15/25 21:39 [place] # (Auto) 0.8 10^3/uL (0.2-0.9) 02/15/25 21:39 Eos # (Auto) 0.0 10^3/uL (0.0-0.8) 02/15/25 21:39 Baso # (Auto) 0.0 10^3/uL (0.0-0.1) 02/15/25 21:39 Nucleated RBC % (auto) 0 % 02/15/25 21:39 Nucleated RBCs # 0.0 /100WBC 02/15/25 21:39 Sodium 133 mmol/L (136-145) L 02/15/25 21:39 Potassium 5.4 mmol/L (3.5-5.1) H 02/15/25 21:39 Chloride 94 mmol/L (98-107) L 02/15/25 21:39 Carbon Dioxide 22 mmol/L (22-29) 02/15/25 21:39 Anion Gap 22.4 (5-19) H 02/15/25 21:39 BUN 61 mg/dL (8-23) H 02/15/25 21:39 Creatinine 5.4 mg/dL (0.7-1.2) H 02/15/25 21:39 GFR Calculation 10.9 mL/min (90-130) L 02/15/25 21:39 Glucose 295 mg/dL (65-115) H 02/15/25 21:39 Calculated Osmolality 304 mOsm/kg (285-295) H 02/15/25 21:39 Calcium 9.6 mg/dL (8.5-10.5) 02/15/25 21:39 Troponin T Baseline 163 ng/L (0-15) H* 02/15/25 21:39 Troponin T 60 Minute 159.5 ng/L (0-15) H 02/15/25 23:20 Delta Troponin T -3.5 ABS# (0-10) L 02/15/25 23:20 Influenza A (PCR) Negative (Negative) 02/15/25 21:39 Influenza Type B (PCR) Negative (Negative) 02/15/25 21:39 RSV (PCR) Negative (Negative) 02/15/25 21:39 SARS-CoV-2 (PCR) Negative (Negative) 02/15/25 21:39 All radiology interpretation(s) finalized by discharge EKG Data EKG 1: Interpretation: Normal sinus rhythm with a heart rate of 88, normal axis, normal intervals, no STEMI. Computer generated interpretation: Chest X-Ray 02/15/25 23:04 IMPRESSION: No acute findings. EKG 2: Interpretation: Sinus rhythm with a heart rate of 89, normal axis, normal intervals, no STEMI. No significant change from previous. Computer generated interpretation: Chest X-Ray 02/15/25 23:04 IMPRESSION: No acute findings. Discharge Plan Discharge Patient Disposition: Admitted As Inpatient Clinical Impression: Exertional dyspnea, Elevated troponin, CKD (chronic kidney disease) Condition: Stable Coding Level of Care Code ED Carbon Capture Power Plant Operator for Paula Ho
[2025-02-15 23:46] LABS: Respiratory Syncytial Virus Ce NEGATIVE (Negative); SARS-CoV-2 PCR NEGATIVE (Negative)
[2025-02-15 23:47] LABS: Troponin(5th) Baseline 163 ng/L (0-15)
[2025-02-15 23:50] LABS: Blood Urea Nitrogen 61 mg/dL (8-23); Calcium 9.6 mg/dL (8.5-10.5); Carbon Dioxide 22 mmol/L (22-29); Chloride 94 mmol/L (98-107); Glucose 295 mg/dL (65-115); Osmolality Calculated 304 mOsm/kg (285-295); Sodium 133 mmol/L (136-145)
[2025-02-15 23:59] LABS: Anion Gap 22.4 (5-19); Potassium 5.4 mmol/L (3.5-5.1)
[2025-02-16] VITALS (20 sets, daily range): BP systolic 146–196; BP diastolic 64–88; PULSE 75–99; RESP 17–26; TEMP 36.5–36.9; O2SAT 91–96
--- NOTE | 2025-02-16 00:05 | ECG_ITS ---
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
[2025-02-16 00:39] LABS: NT Pro B Type Natriuretic Pept 15253 pg/mL (0-125)
[2025-02-16 01:29] LABS: Potassium 4.5 mmol/L (3.5-5.1)
--- NOTE | 2025-02-16 03:22 | PM.HP ---
Providers/Chief Complaint Admitting Physician: Martir Finnegan MD Primary Care Provider: MARK Kilpatrick Chief Complaint: cant catch breath n/v kidney failure History of Present Illness Martir Kruger is a 59 year old male says he was getting ready for bed and was short of breath and burning in his chest. He had heart racing from worry and presented to the emergency department. He has had a cough dry nonproductive. He took Tums for his burning in the chest which helped. Patient denies history of NM. He states that he walks okay without chest pain on exertion. 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 Blood sugars run high with his open wound of his right foot. Weight has been stable but blood sugars running around 250. Last hemoglobin A1c was 8. Patient lives with his . 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 Patient states his weight has been stable at around 250 pounds. His kidney function has worsened from a GFR of 15 to GFR of 10. Today's troponin was 163 and at 60 minutes down to 159. (BUN 61 creatinine 5.4 same as last month 01/30/2025) Review of Systems Narrative: General No fevers chills Cardiovascular he had the burning chest pain but states that is resolved now he has not had chest pain with exertion and denies a history of NM. He is able to walk okay with his prosthesis. Respiratory positive for dry cough. He is not on oxygen at home though he has been hypoxemic here GI positive for nausea no vomiting no diarrhea constipation no dysuria hematuria he has nocturia 2 times a night Medications/Allergies Home Medications ?Medication ?Instructions ?Recorded ?Confirmed ?Last Taken ?Type prosthetic leg sleeve #2 ea 11/11/23 02/16/25 Unknown Rx prosthetic supplies #1 ea 11/11/23 02/16/25 Unknown Rx prosthetic sleeve and liners #1 ea 11/17/24 02/16/25 Unknown Rx metoprolol tartrate 25 mg tablet 25 mg PO BID 12/05/24 02/16/25 02/15/25 17:00 History amlodipine 10 mg tablet 10 mg PO DAILY 30 days #30 tabs 12/09/24 02/16/25 02/15/25 08:00 Rx flash glucose sensor (FreeStyle #2 kits 02/05/25 02/16/25 Unknown Rx Julius 2 Sensor kit) furosemide 40 mg tablet (Lasix) 40 mg PO QAM #90 tabs 02/05/25 02/16/25 02/15/25 08:00 Rx insulin glargine 100 unit/mL (3 See Rx Instructions .Route 02/14/25 02/16/25 02/15/25 08:00 Rx mL) subcutaneous pen (Lantus .COMPLEX #15 mL Solostar U-100 Insulin) insulin regular hum U-500 conc 500 See Rx Instructions .Route 02/14/25 02/16/25 02/15/25 08:00 Rx unit/mL(3 mL) subcut pen (Humulin .COMPLEX #12 mL R U-500 (Conc) Insulin Kwikpen) hydralazine 50 mg tablet 50 mg PO BID 02/16/25 02/16/25 02/15/25 17:00 History Allergies Allergy/AdvReac Type Severity Reaction Status Date / Time No Known Allergies Allergy Verified 12/28/24 10:29 PFSH Acute PFSH: Medical History (Updated 02/16/25 @ 03:52 by Martir Finnegan MD) Kidney disease with fluid retention Acute hypoxic respiratory failure Pulmonary edema Hypertension Diabetes type 2, uncontrolled Hyponatremia Acute kidney injury superimposed on chronic kidney disease Acute decompensated heart failure Fluid overload Hyperlipidemia Poorly fitting prosthesis for below knee amputation (BKA) Contrast-induced nephropathy Hypertensive crisis Need for dental care Migraine Intractable vomiting Acute on chronic kidney failure Hypertensive urgency Hyperosmolar hyperglycemic state (HHS) DKA (diabetic ketoacidosis) Prosthesis fitting Hypokalemia Hypertensive urgency Microscopic hematuria Nausea and vomiting Diabetes mellitus with gastroparesis Osteomyelitis Contrast dye induced nephropathy Acute renal failure superimposed on stage 3b chronic kidney disease Peripheral arterial disease Acquired rearfoot varus Diabetic peripheral neuropathy associated with type 2 diabetes mellitus 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 Chronic renal impairment Hyperlipidemia associated with type 2 diabetes mellitus Statin intolerance Foot abscess, left Diabetic foot infection Essential hypertension Hyperlipidemia, mixed Surgical History S/P hemodialysis catheter insertion S/P BKA (below knee amputation) (04/05/21) History of partial amputation of toe of right foot History of amputation of lesser toe Amputated toe of right foot secondary to osteomyelitis 4th right toe Family History Father Diabetes Mother Diabetes Other Hypertension Social History (Updated 02/16/25 @ 03:46 by Martir Finnegan MD) Smoking and tobacco/nicotine status: never used tobacco/nicotine Second hand smoke exposure: No Alcohol intake: former Substance/Drug Use: never Additional social history: He wants full code as discussed with Martir Finnegan MD on 02/16/2025 Adopted: No Caregiver/support person: No Lives independently: Yes Household members: spouse Housing: House Marital status: service: No Current occupational status: employed 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 Pets and animals: Yes Do you think of yourself as: Straight/Heterosexual Current gender identity: Male Vitals/I&O/Wt Last Vital Signs Temp 98.3 F 02/16/25 01:46 Pulse 99 02/16/25 01:46 Resp 18 02/16/25 01:46 BP 173/80 02/16/25 01:46 Pulse Ox 96 02/16/25 01:46 O2 Del Method Nasal Cannula 02/16/25 01:46 O2 Flow Rate 2 02/16/25 01:00 02/15/25 02/15/25 02/16/25 14:59 22:59 06:59 Output Total 350 / 350 Balance -350 / -350 Weight last 48 hrs Weight 117.3 kg Weight 122.016 kg Physical Exam Narrative: General Well-developed obese male in no acute cardiopulmonary stress Oropharynx Mallampati 2 CV regular tachycardic rhythm Lungs crackles heard in both mid and lower lung alves bilaterally Abdomen positive bowel tones soft obese nontender Calves left BKA right 1+ to 2 edema right foot with some bandages Data 02/15/25 21:39 02/16/25 01:03 A&P Assessment and plan 1. Atypical chest pain: Patient with elevated troponin but in the setting of worsening renal function. First 2 troponins have been flat. He is no longer having chest pain and his chest pain was atypical burning possibly related to reflux. Start PPI. Will give GI cocktail as needed next episode of chest pain 2. CKD stage 4 secondary to hypertension: Patient not diuresing well on his home regimen with worsening kidney function. Will check postvoid residual bladder scan to make sure he is not retaining urine as a cause for worsening renal function and failure to diurese 3. Kidney disease with fluid retention: Will change to Bumex 1 mg IV twice a day and metolazone 5 mg daily first dose now. Renal function at noon. If kidney function stable and he is diuresing he can be discharged if not we will switch to inpatient status 4. Sleep apnea-like behavior: Patient Mallampati 2, obesity and renal failure with hypoxemia and leg edema. I think he should have a sleep study to look for obstruction which if treated could help his cardiopulmonary condition and diuresis PDMP PDMP Reviewed: Not Reviewed Attestations Medical Necessity Statement*: Patient is placed under observation for volume overload and elevated troponin and anticipate stay to be less than 2 midnights Coding Level of Care Code 29064 Diagnoses Atypical chest pain R07.89 CKD stage 4 secondary to hypertension I12.9; N18.4 Kidney disease with fluid retention N28.9 Sleep apnea-like behavior G47.39 Time Spent (min) 60
[2025-02-16] MEDS: heparin 5,000 unit/mL INJ 1 mL 5000 UNIT SUBCUT (04:13)
[2025-02-16] MEDS: bumetanide 0.25 mg/mL SDV 4 mL 1 MG IVP ×2 (04:13→14:24)
[2025-02-16 04:27] LABS: Troponin 5 6HR 210.3 ng/L (0-15); Troponin 5 6HR Delta 47.3 ng/L (0-12)
--- NOTE | 2025-02-16 05:05 | ECG_ITS ---
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
[2025-02-16] MEDS: nitroglycerin 1 gm/inch oint Pkt 1 INCH TOPICAL ×2 (06:14→11:46)
--- NOTE | 2025-02-16 09:12 | USCV_ITS ---
Martir Kruger Age: 59 Gender: M : 1965 Exam Date: 02/16/2025 10:17 Ordering Phys: Gentry Contreras MD Technologist: JENAE Exam Location: [facility] [place] Indication: NSTEMI BP: 146 / 71 HR: 80 Rhythm: Sinus Technical Quality: Adequate MEASUREMENTS (Male / Female) Normal Values 2D ECHO LV Diastolic Diameter PLAX 5.6 cm 4.2 - 5.9 / 3.9 - 5.3 cm IVS Diastolic Thickness 0.8 cm 0.6 - 1.0 / 0.6 - 0.9 cm IVS Systolic Thickness 1.0 cm LVPW Diastolic Thickness 0.9 cm 0.6 - 1.0 / 0.6 - 0.9 cm LVPW Systolic Thickness 1.0 cm LVOT Diameter 1.9 cm LV Ejection Fraction 2D Teich 20.7 % LV Ejection Fraction MOD 4C 51.2 % LV Ejection Fraction MOD 2C 61.4 % LV Ejection Fraction 2C AL 56.0 % LA Diameter 3.5 cm RA Systolic Volume 4C AL 38.8 ml RA Systolic Volume 4C MOD 37.0 ml LA Sys Volume AL 61.3 cm cubed LA Sys Volume Index AL 25.0 cm cubed/m squared Aorta at Sinotubular Diameter 2.7 cm M-MODE LA Ao Ratio MM 1.7 AV Cusp Separation MM 1.8 cm DOPPLER AV Peak Velocity 128.0 cm/s LVOT Peak Velocity 84.0 cm/s AV Area Cont Eq vti 2.3 cm squared AV Area Cont Eq pk 1.9 cm squared MV Peak Velocity 162.0 cm/s MV Area PHT 10.2 cm squared Mitral E to A Ratio 1.4 TR Peak Velocity 111.0 cm/s TR Peak Gradient 4.9 mmHg TV Peak E Velocity 107.0 cm/s PV Peak Velocity 101.0 cm/s FINDINGS Left Ventricle Normal left ventricular cavity size. There is hypokinesis of the apical septal and apical inferior wall segments. Normal global left ventricular systolic function with an ejection fraction of 56%. Normal left ventricular wall thickness. Indeterminate diastolic function due to first degree AV block merging the E and A waves. Right Ventricle Normal right ventricular size and systolic function. RVSP could not be calculated due to incomplete tricuspid regurgitation velocity profile. Right Atrium Normal right atrial size. Left Atrium Normal left atrial size. IA Septum Normal appearance of the interatrial septum. Mitral Valve Structurally normal mitral valve. No mitral valve stenosis. Trace mitral valve regurgitation. Aortic Valve No aortic valve stenosis. No aortic valve regurgitation. Tricuspid Valve No tricuspid valve stenosis. No tricuspid valve regurgitation. Pulmonic Valve No pulmonary valve stenosis. No pulmonary valve regurgitation. Pericardium No pericardial effusion. Aorta Normal size aortic root and proximal ascending aorta. IVC Inferior vena cava not visualized. CONCLUSIONS 1. Normal left ventricular cavity size. There is hypokinesis of the apical septal and apical inferior wall segments. Normal global left ventricular systolic function with an ejection fraction of 56%. 2. Normal right ventricular size and systolic function 3. No significant valvular abnormalities Rm Patel MD, FACC (Electronically Signed) Final Date: 16 February 2025 14:08 S
--- NOTE | 2025-02-16 09:13 | USCV_ITS ---
Martir Kruger Age: 59 Gender: M : 1965 Exam Date: 02/16/2025 11:04 Ordering Phys: Gentry Contreras MD Technologist: JENAE Exam Location: [facility] [place] Indication: Dvt. Pt has a Lt BKA so images only through beginning of peroneal HISTORY: DVT. PROCEDURES: Venous duplex imaging was performed in bilateral lower extremities. The following venous structures were evaluated: common femoral vein, profunda vein, proximal portion of the greater saphenous vein, superficial femoral vein, and the popliteal vein. Left BKA. In addition, the posterior tibial and peroneal trunk were evaluated. Serial compression, augmentation maneuvers, and spectral Doppler flow evaluation were performed. FINDINGS: Normal 2-D Doppler and augmentation and compressibility throughout the lower extremity venous structures. Additional imaging through the proximal calf veins also reveals no thrombus. Limited evaluation of the greater saphenous vein is patent with no thrombus. CONCLUSIONS No DVT bilateral lower extremities. Dr. Inez Gordon DO (Electronically Signed) Final Date: 16 February 2025 11:28 S
[2025-02-16] MEDS: heparin 5,000 unit/mL INJ 1 mL IVP (09:44)
[2025-02-16] MEDS: heparin drip 25,000 UNIT/500 ML PREMIX 28.32 UNIT IV (09:46)
[2025-02-16 10:02] LABS: Platelet Count 331 10^3/cmm (157-399)
[2025-02-16 10:29] LABS: Alanine Aminotransferase 7 U/L (0-41); Albumin Level 3.1 g/dL (3.5-5.2); Alkaline Phosphatase 74 U/L (40-130); Anion Gap 19.5 (5-19); Aspartate Amino Transferase 14 U/L (0-40); Blood Urea Nitrogen 67 mg/dL (8-23); Calcium 8.7 mg/dL (8.5-10.5); Carbon Dioxide 20 mmol/L (22-29); Chloride 95 mmol/L (98-107); Globulin 3.3 g/dL (1.3-4.6); Glucose 367 mg/dL (65-115); Iron 31 ug/dL (59-158); Osmolality Calculated 304 mOsm/kg (285-295); Potassium 4.5 mmol/L (3.5-5.1); Sodium 130 mmol/L (136-145); Total Iron Binding Capacity 209 mcg/dl; Total Protein 6.4 g/dL (6.6-8.7); Unsaturated Iron Binding 178 ug/dL (112-347)
[2025-02-16 10:42] LABS: Vitamin B12 352 pg/mL (232-1245)
[2025-02-16 10:53] LABS: MRSA PCR OZH (swab) NOT DETECTED (Negative)
[2025-02-16 12:08] LABS: Troponin T (5th) Once 274 ng/L (0-15)
--- NOTE | 2025-02-16 12:29 | PC.SOCIAL ---
IMM UPDATED IMM dated and initialed, copy given to patient and copy placed in chart.
--- NOTE | 2025-02-16 16:04 | ECG_ITS ---
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 The perfusion scan will be documented separately. DATA: Baseline heart rate was 67 beats per minute. Baseline blood pressure was 154/89 millimeters of mercury. Target heart rate was 158. Maximum heart rate achieved was 73. which was 46% of the predicted target heart rate. Maximum blood pressure was 157/70 millimeters of mercury. The reason for ending the test was completion of the protocol. The patient did not experience any symptoms. ELECTROCARDIOGRAM: BASELINE: Sinus rhythm. Normal axis. Otherwise, no ST-T changes suggestive of ischemia noted. No arrhythmia noted. EXERCISE: After Lexiscan injection, no ST-T changes suggestive of ischemic noted. No arrhythmia noted. CONCLUSION: Please note due to baseline abnormality of the EKG specificity and sensitivity of the EKG portion of LexiScan MIBI stress test will be low 1. EKG not suggestive of ischemia 2. Lexiscan injection unremarkable. 3. Perfusion scan will be documented separately. Electronically Signed On 02-19-2025 12:24:32 CAT WAGON OPERATOR by CAROLYN MIRANDA [id number]
--- NOTE | 2025-02-16 16:31 | P.CONIM_ITS ---
<Statement entered by Rm Patel MD - 02/16/25 20:01> Patient was evaluated and cared for in conjunction with an advanced practice practitioner. I personally examined the patient and reviewed the chart and all pertinent data including imaging, telemetry, and laboratory results. I discussed the patient in detail with the advanced practice practitioner. Please see their note for complete consult note, testing results and agreed upon plan of care for the patient. Providers/Reason For Consult 2 Consulting Physician/Specialty*: Dr. Patel Reason for Consult*: NSTEMI Attending Physician: Gentry Contreras MD Primary Care Provider: MARK Kilpatrick History of Present Illness History of Present Illness Martir Kruger is a 59 year old male history of type 2 diabetes, CKD end- stage, hypercholesterolemia, left [id number] amputation with a chief complaint of shortness of breath x 1 day. Denies fever chills or bodyaches. Did have an episode of burning at the center of the chest. He states it could be reflux because it did occur after he ate. He did take some Tums with lack of much improvement from this. Patient states he has no known cardiac history. Previous echo was over a year ago that showed normal LV function. EKG was performed that showed no acute ST or T wave changes. Denies any chest pain at this time. He states he was going to get set up for dialysis before he developed to the shortness of breath requiring him to come into the emergency room. He did have a previous stress test that was normal which was many years ago. Troponins are chronically elevated but troponins are much more elevated than baseline at [phone] delta negative. ProBNP was elevated at 15,253. Chest x-ray showed no acute findings. Venous duplex was done that showed no DVT in bilateral lower extremities. Review of Systems 2 Narrative: Consitutional: denies fever, chills, body aches, or changes in appetite, denies abnormal weight loss Eyes: Denies changes in vision Card: reports burning chest pain at center of the chest after eating spicy food, palpitations, irregular heart rhythm, edema, syncope, shortness of breath, orthopnea, leg pain with exertion Resp: Reports shortness of breath on exertion relieved with rest, denies hemoptysis, denies cough GI: denies abdominal pain, denies nausea or vomiting, denies blood in stool Neuro: Denies nubmness in extremities, h/a, s/s of stroke David: Denies easy bruiding/bleeding Medications/Allergies Home Medications ?Medication ?Instructions ?Recorded ?Confirmed ?Last Taken ?Type prosthetic leg sleeve #2 ea 11/11/23 02/16/25 Unkn own Rx prosthetic supplies #1 ea 11/11/23 02/16/25 Unkn own Rx prosthetic sleeve and liners #1 ea 11/17/24 02/16/25 Unknown Rx metoprolol tartrate 25 mg tablet 25 mg PO BID 12/05/24 02/16/25 02/15/25 17:00 History amlodipine 10 mg tablet 10 mg PO DAILY 30 days #30 t abs 12/09/24 02/16/25 02/15/25 08:00 Rx flash glucose sensor (FreeStyle #2 kits 02/05/2502/16 Unknown Rx Julius 2 Sensor kit) furosemide 40 mg tablet (Lasix) 40 mg PO QAM #90 tabs 02/05/25 02/16/25 02/15/25 08:00 Rx insulin glargine 100 unit/mL (3 See Rx Instructions .R oute 02/14/25 02/16/25 02/15/25 08:00 Rx mL) subcutaneous pen (Lantus .COMPLEX #15 mL Solostar U-100 Insulin) insulin regular hum U-500 conc 500 See Rx Instructions .Route 02/14/25 02/16/25 02/15/25 08:00 Rx unit/mL(3 mL) subcut pen (Humulin .COMPLEX #12 mL R U-500 (Conc) Insulin Kwikpen) hydralazine 50 mg tablet 50 mg PO BID 02/16/2502/15/25 17:00 History Allergies Allergy/AdvReac Type Severity Reaction Status Date / Time No Known Allergies Allergy Verified 12/28/24 10:29 Current Medications Generic Name Dose Route Start Last Admin Trade Name Freq PRN Reason Stop Dose Admin Amlodipine Besylate 10 mg 02/16/25 05:00 02/16/25 04:13 Amlodipine 10 Mg Tablet PO 10 mg DAILY MANUELA Administration Budesonide 0.5 mg 02/16/25 09:15 02/16/25 09:49 Budesonide 0.5 Mg/2 Ml Neb INHALATION 0.5 mg BID.RESPIRATORY MANUELA Administration Bumetanide 1 mg 02/16/25 03:15 02/16/25 14:24 Bumetanide 0.25 Mg/Ml Sdv 4 Ml IVP 1 mg Q12H MANUELA Administration Docusate Sodium 100 mg 02/16/25 05:00 02/16/25 04:13 Docusate Sodium 100 Mg Capsule PO Not Given BID MANUELA Hydralazine HCl 50 mg 02/16/25 05:00 02/16/25 04:13 Hydralazine 50 Mg Tablet PO 50 mg BID MANUELA Administration Heparin Sodium/Sodium Chloride 25,000 unit in 500 mls @ 28.32 mls/hr 02/16/25 09:15 02/16/25 09:46 Heparin Drip IV 12 unit/kg/hr CONT MANUELA 28.32 mls/hr Protocol Administration 12 UNIT/KG/HR Insulin Human Lispro 0 unit 02/16/25 12:00 02/16/25 12:00 Insulin Lispro 100 Unit/1 Ml SUBCUT 10 unit WM&BEDTIME MANUELA Administration Protocol Metolazone 5 mg 02/16/25 03:15 02/16/25 04:13 Metolazone 5 Mg Tablet PO 5 mg DAILY MANUELA Administration Metoprolol Tartrate 50 mg 02/16/25 03:15 02/16/25 04:13 Metoprolol Tartrate 25 Mg Tablet PO 50 mg BID MANUELA Administration Nitroglycerin 1 inch 02/16/25 05:30 02/16/25 11:46 Nitroglycerin 1 Gm/Inch Oint Pkt TOPICAL 1 inch Q6H MANUELA Administration Pantoprazole Sodium 40 mg 02/16/25 03:15 02/16/25 04:[address] 40 Mg Tablet PO 40 mg DAILY MANUELA Administration PFSH Acute 2 PFSH: Medical History (Updated 02/16/25 @ 03:52 by Martir Finnegan MD) Kidney disease with fluid retention Acute hypoxic respiratory failure Pulmonary edema Hypertension Diabetes type 2, uncontrolled Hyponatremia Acute kidney injury superimposed on chronic kidney disease Acute decompensated heart failure Fluid overload Hyperlipidemia Poorly fitting prosthesis for below knee amputation (BKA) Contrast-induced nephropathy Hypertensive crisis Need for dental care Migraine Intractable vomiting Acute on chronic kidney failure Hypertensive urgency Hyperosmolar hyperglycemic state (HHS) DKA (diabetic ketoacidosis) Prosthesis fitting Hypokalemia Hypertensive urgency Microscopic hematuria Nausea and vomiting Diabetes mellitus with gastroparesis Osteomyelitis Contrast dye induced nephropathy Acute renal failure superimposed on stage 3b chronic kidney disease Peripheral arterial disease Acquired rearfoot varus Diabetic peripheral neuropathy associated with type 2 diabetes mellitus 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 Chronic renal impairment Hyperlipidemia associated with type 2 diabetes mellitus Statin intolerance Foot abscess, left Diabetic foot infection Essential hypertension Hyperlipidemia, mixed Surgical History S/P hemodialysis catheter insertion S/P BKA (below knee amputation) (04/05/21) History of partial amputation of toe of right foot History of amputation of lesser toe Amputated toe of right foot secondary to osteomyelitis 4th right toe Family History Father Diabetes Mother Diabetes Other Hypertension Social History (Updated 02/16/25 @ 03:46 by Martir Finnegan MD) Smoking and tobacco/nicotine status: never used tobacco/nicotine Second hand smoke exposure: No Alcohol intake: former Substance/Drug Use: never Additional social history: He wants full code as discussed with Martir Finnegan MD on 02/16/2025 Adopted: No Caregiver/support person: No Lives independently: Yes Household members: spouse Housing: House Marital status: service: No Current occupational status: employed 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 Pets and animals: Yes Do you think of yourself as: Straight/Heterosexual Current gender identity: Male Vitals/I&O/Wt Last Vital Signs Temp 98.0 F 02/16/25 16:00 Pulse 83 02/16/25 16:00 Resp 17 02/16/25 16:00 BP 164/76 02/16/25 16:00 Pulse Ox 93 02/16/25 16:00 O2 Del Method Room Air 02/16/25 16:00 O2 Flow Rate 2 02/16/25 09:53 02/16/25 02/16/25 02/16/25 06:59 14:59 22:59 Intake Total 120 / 120 480 / 480 Output Total 350 / 350 400 / 400 Balance -230 / -230 80 / 80 Weight last 48 hrs Weight 261 lb 0.437 oz Weight 258 lb 9.636 oz Weight 269 lb Physical Exam 2 Narrative: General: No apparent distress, healthy appearing, well nourished HENMT: normoceophalic Neck: No carotid bruit bilaterally Muskuloskeletal: LLE AKA Respiratory: Normal respiratory effort, clear to auscultation bilaterally throughout all lung alves, no use of accessory muscles Cardio: No JVD, regular rate, regular rhythm, S1 S2 normal, no murmurs, peripheral pulses 2+ radial palpated bilaterally GI: Normal to inspection, nondistended Extremities: Full ROM, normal, normal capillary refill, no cyanosis or edema Neuro: Alert and oriented x4, no focal motor deficits Psych: Affect normal, denies suicidal ideation, mental status grossly normal Data 02/16/25 09:41 02/16/25 09:50 A&P Assessment and plan 1. Exertional dyspnea: 2. Elevated troponin: 3. CHF (congestive heart failure): 4. Acute on chronic renal insufficiency: 5. CKD (chronic kidney disease): Plan: Patient has elevated troponin with atypical chest pain as well as CHF exacerbation. Recommend obtaining echocardiogram to rule out reduced ejection fraction versus valvular abnormalities. Agree with heparin drip. Continue home blood pressure medications such as amlodipine 10 mg daily, metoprolol 50 twice daily. Agree with Bumex 1 mg IV every 12 and metolazone 5 mg p.o. daily for diuresis. Strict I&O and titrate to patient's response. Patient is high risk for CAD due to risk factors such as CKD, diabetes, hypercholesterolemia, therefore will proceed with chemical stress test on Wednesday after patient has been diuresed. Further recommendations after that. Thank you, Dr. Contreras, for allowing us to care for this very pleasant 59 year old genlteman. PDMP PDMP Reviewed: Not Reviewed Coding Level of Care Code Acute Code for Chg Fwd Diagnoses Exertional dyspnea R06.09 Elevated troponin R79.89 CHF (congestive heart failure) I50.9 Acute on chronic renal insufficiency N28.9; N18.9 CKD (chronic kidney disease) N18.9
[2025-02-16] MEDS: insulin glargine 100 units/1 mL 20 UNIT SUBCUT (16:42)
--- NOTE | 2025-02-16 16:50 | PC.NURSE ---
Patients dexcom read 260 at 1645.
[2025-02-16 18:08] LABS: Partial Thromboplastin Time 44.3 SECONDS (23.9-36.7)
--- NOTE | 2025-02-16 18:30 | PC.NURSE ---
Provider is updated that Martir Kruger, is due to have his nitro patch to be changed. He wants to leave it off for now. He is not having any chest pain. And he has had a dull headache since it has been on. Provider okayd to hold for now.
[2025-02-17] VITALS (8 sets, daily range): BP systolic 144–181; BP diastolic 66–92; PULSE 74–93; RESP 12–23; TEMP 36.6–36.9; O2SAT 92–96; BMI 38.0
[2025-02-17 00:34] LABS: Partial Thromboplastin Time 53.9 SECONDS (23.9-36.7)
[2025-02-17 02:52] LABS: Hematocrit 31.3 % (37-53); Hemoglobin 10.10 g/dL (11.27-16.99); Mean Corpuscular HGB Conc 32.3 g/dL (30-55); Mean Corpuscular Hemoglobin 26.4 pg (27-33); Mean Corpuscular Volume 81.7 fl (82-101); Nucleated Red Blood Cells % 0 %; Platelet Count 353 10^3/cmm (157-399); Red Blood Count 3.83 10^6/uL (3.85-5.65); White Blood Count 12.28 10^3/uL (3.29-11.43)
[2025-02-17] MEDS: heparin drip 25,000 UNIT/500 ML PREMIX 35.4 UNIT IV (02:55)
[2025-02-17] MEDS: bumetanide 0.25 mg/mL SDV 4 mL 1 MG IVP ×2 (02:56→15:28)
[2025-02-17 03:29] LABS: Magnesium 2.5 mg/dL (1.7-2.3)
[2025-02-17 03:33] LABS: Alanine Aminotransferase 8 U/L (0-41); Albumin Level 3.5 g/dL (3.5-5.2); Alkaline Phosphatase 76 U/L (40-130); Anion Gap 16.8 (5-19); Aspartate Amino Transferase 13 U/L (0-40); Blood Urea Nitrogen 68 mg/dL (8-23); Calcium 8.9 mg/dL (8.5-10.5); Carbon Dioxide 24 mmol/L (22-29); Chloride 95 mmol/L (98-107); Globulin 3.8 g/dL (1.3-4.6); Glucose 197 mg/dL (65-115); Osmolality Calculated 299 mOsm/kg (285-295); Potassium 3.8 mmol/L (3.5-5.1); Sodium 132 mmol/L (136-145); Total Protein 7.3 g/dL (6.6-8.7)
[2025-02-17 06:43] LABS: Partial Thromboplastin Time 74.2 SECONDS (23.9-36.7)
[2025-02-17] MEDS: insulin glargine 100 units/1 mL 20 UNIT SUBCUT ×2 (08:12→17:25)
--- NOTE | 2025-02-17 11:46 | PC.NURSE ---
Patients dexcom read 222.
[2025-02-17 13:17] LABS: Partial Thromboplastin Time 83.8 SECONDS (23.9-36.7)
--- NOTE | 2025-02-17 16:21 | P.PN_ITS ---
Subjective 2 Subjective: Breathing better Vitals/I&O/Wt Last Vital Signs Temp 98.1 F 02/17/25 11:50 Pulse 83 02/17/25 11:50 Resp 22 H 02/17/25 11:50 BP 175/88 02/17/25 11:50 Pulse Ox 92 02/17/25 11:50 O2 Del Method Room Air 02/17/25 11:50 O2 Flow Rate 2 02/16/25 09:53 02/17/25 02/17/25 02/17/25 06:59 14:59 22:59 Intake Total 1582.502 / 2545.110 596 / 596 Output Total 1050 / 2200 500 / 500 Balance 532.502 / 345.110 96 / 96 Weight last 48 hrs Weight 257 lb 7.999 oz Weight 257 lb 0.944 oz Weight 261 lb 0.437 oz Weight 258 lb 9.636 oz Weight 269 lb Physical Exam 2 Narrative: General: In no acute distress Neck: No jugular venous distention or carotid bruits Heart: Normal S1 and S2 with a regular rate and rhythm, no cardiac murmurs Lungs: Normal respiratory effort with no use of intercostal muscles, clear lungs sounds to auscultation Extremities: 1+ bilateral lower extremity edema Neuro: Alert and oriented x 3 Data 02/17/25 02:24 02/17/25 02:24 A&P Assessment and plan 1. Exertional dyspnea: 2. Elevated troponin: 3. CHF (congestive heart failure): 4. Acute on chronic renal insufficiency: 5. CKD (chronic kidney disease): Plan: Patient has elevated troponin with atypical chest pain as well as CHF exacerbation. Volume overload improving slowly with IV Bumex 1mg IV bid Cr stable 5.9 >>5.7 Being set up to start outpatient hemodialysis Hypertensive Can increase hydralazine to 75 mg 3 times a day Echo 02/16/25: Hypokinetic apical septal and apical inferior wall segments - unclear if new or old. Normal EF 56% IV heparin Lexiscan nuc stress test Wednesday to rule out inducible ischemia Continue all other current cardiac medications PDMP PDMP Reviewed: Not Reviewed Attestations 2 Medical Necessity Statement*: Requires 2 more midnights in the hospital due to congestive heart failure and possible unstable angina Coding Level of Care Code 31584 Diagnoses Exertional dyspnea R06.09 Elevated troponin R79.89 CHF (congestive heart failure) I50.9 Acute on chronic renal insufficiency N28.9; N18.9 CKD (chronic kidney disease) N18.9
--- NOTE | 2025-02-17 16:33 | P.PN_ITS ---
Subjective 2 Subjective: Patient sitting in bed, visiting with family. Overall he feels improved. No complaints of chest pain or dyspnea at this time Vitals/I&O/Wt Last Vital Signs Temp 98.4 F 02/17/25 16:00 Pulse 84 02/17/25 16:00 Resp 22 H 02/17/25 16:00 BP 178/83 02/17/25 16:00 Pulse Ox 94 02/17/25 16:00 O2 Del Method Room Air 02/17/25 16:00 O2 Flow Rate 2 02/16/25 09:53 02/17/25 02/17/25 02/17/25 06:59 14:59 22:59 Intake Total 1582.502 / 2545.110 596 / 596 Output Total 1050 / 2200 500 / 500 400 / 900 Balance 532.502 / 345.110 96 / 96 -400 / -304 Weight last 48 hrs Weight 116.8 kg Weight 116.6 kg Weight 118.4 kg Weight 117.3 kg Weight 122.016 kg Physical Exam 2 Narrative: General Well-developed obese male in no acute cardiopulmonary stress Oropharynx Mallampati 2 CV regular tachycardic rhythm Lungs crackles heard in both mid and lower lung alves bilaterally Abdomen positive bowel tones soft obese nontender Calves left BKA right 1+ to 2 edema right foot with some bandages Data 02/17/25 02:24 02/17/25 02:24 CXR: Radiologist's impression: XR/XR chest 1V portable [id number] IMPRESSION: No acute findings Venous doppler bilateral LE- CONCLUSIONS No DVT bilateral lower extremities A&P Assessment and plan 1. Atypical chest pain: Patient presented with chest pain and exertional dyspnea. Troponin 274. EKG with non specific ST changes. Patient seen by Cardiology- appreciate recs. Heparin drip Echo obtained and noted- EF 56 percent Stress test on Wednesday Continue close monitoring in CCU 2. CKD (chronic kidney disease): Patient has apparently been evaluated by shake feeder in [place] and is prepping for dialysis Avoid nephrotoxins Monitor closely 3. Diabetes type 2, uncontrolled: Carb consistent diet SSI Monitor closely for hypoglycemia 4. Kidney disease with fluid retention: Patient noted to be volume overloaded. Echo obtained and noted with EF of 56 percent Patient given IV bumex Improved, currently on room air 5. History of left below knee amputation: Supportive care, no acute issues Plan: DVT prophylaxis- heparin drip GI prophylaxis- PPI Code status- Full Discussed with patient and care team members Discussed with Dr Ptael PDMP PDMP Reviewed: Not Reviewed Attestations 2 Medical Necessity Statement*: Patient is changed to inpatient status with care expected to cross 2 midnights, with ongoing management of angina, volume overload, cardiology evaluation and stress test Coding Level of Care Code 11147 Diagnoses Atypical chest pain R07.89 CKD (chronic kidney disease) N18.9 Diabetes type 2, uncontrolled Kidney disease with fluid retention N28.9 History of left below knee amputation Z89.512
--- NOTE | 2025-02-17 17:05 | PC.NURSE ---
Patients dexcom is 158.
[2025-02-17] MEDS: heparin drip 25,000 UNIT/500 ML PREMIX 33.04 UNIT IV (18:20)
[2025-02-17 19:43] LABS: Partial Thromboplastin Time 76.6 SECONDS (23.9-36.7)
--- NOTE | 2025-02-17 20:06 | PC.NURSE ---
Patient dexcom reads 214.
[2025-02-18] VITALS (8 sets, daily range): BP systolic 160–178; BP diastolic 68–84; PULSE 65–81; RESP 16–21; TEMP 36.3–36.8; O2SAT 94–97
[2025-02-18 03:01] LABS: Platelet Count 301 10^3/cmm (157-399)
[2025-02-18 03:22] LABS: Anion Gap 19.4 (5-19); Blood Urea Nitrogen 72 mg/dL (8-23); Calcium 8.5 mg/dL (8.5-10.5); Carbon Dioxide 24 mmol/L (22-29); Chloride 94 mmol/L (98-107); Glucose 223 mg/dL (65-115); Magnesium 2.7 mg/dL (1.7-2.3); Osmolality Calculated 306 mOsm/kg (285-295); Potassium 3.4 mmol/L (3.5-5.1); Sodium 134 mmol/L (136-145)
[2025-02-18 03:27] LABS: Partial Thromboplastin Time 90.6 SECONDS (23.9-36.7)
[2025-02-18] MEDS: bumetanide 0.25 mg/mL SDV 4 mL 1 MG IVP ×2 (04:33→16:36)
[2025-02-18] MEDS: insulin glargine 100 units/1 mL 20 UNIT SUBCUT ×2 (08:32→17:49)
[2025-02-18 09:19] LABS: Partial Thromboplastin Time 62.6 SECONDS (23.9-36.7)
--- NOTE | 2025-02-18 11:52 | P.PN_ITS ---
Subjective 2 Subjective: Patient feels improved. Shortness of breath and fluid retention is less. No new complaints Vitals/I&O/Wt Last Vital Signs Temp 98.3 F 02/18/25 07:46 Pulse 70 02/18/25 11:41 Resp 18 02/18/25 11:41 BP 175/73 02/18/25 11:41 Pulse Ox 94 02/18/25 11:41 O2 Del Method Room Air 02/18/25 08:00 O2 Flow Rate 2 02/16/25 09:53 02/17/25 02/18/25 02/18/25 22:59 06:59 14:59 Intake Total 305.609 / 901.609 228.15 / 1129.759 403.878 / 403.878 Output Total 900 / 1400 1375 / 2775 Balance -594.391 / -498.391 -1146.85 / -1645.241 403.878 / 403.878 Weight last 48 hrs Weight 115.5 kg Weight 116.8 kg Weight 116.6 kg Physical Exam 2 Narrative: General Well-developed obese male in no acute cardiopulmonary stress CV regular tachycardic rhythm Lungs clear Abdomen positive bowel tones soft obese nontender Calves left BKA right 1+ to 2 edema right foot with some bandages Data 02/18/25 02:04 02/18/25 02:04 CXR: Radiologist's impression: CXR: Radiologist's impression: XR/XR chest 1V portable [id number] IMPRESSION: No acute findings Venous doppler bilateral LE- CONCLUSIONS No DVT bilateral lower extremities A&P Assessment and plan 1. Atypical chest pain: 1. Atypical chest pain: Patient presented with chest pain and exertional dyspnea. Troponin elevated EKG with non specific ST changes. Patient seen by Cardiology- appreciate recs. Heparin drip Echo obtained and noted- EF 56 percent Stress test on Wednesday Continue close monitoring in CCU 2. CKD stage 4 secondary to hypertension: Patient has apparently been evaluated by assistant branch manager in [place] and is prepping for dialysis Avoid nephrotoxins Monitor closely 3. Diabetes type 2, uncontrolled: Carb consistent diet SSI Monitor closely for hypoglycemia 4. Kidney disease with fluid retention: Patient noted to be volume overloaded. Echo obtained and noted with EF of 56 percent Patient given IV bumex, continue Improved, currently on room air 5. History of left below knee amputation: Supportive care, no acute issues Plan: Plan: DVT prophylaxis- heparin drip GI prophylaxis- PPI Code status- Full Discussed with patient and care team members Discussed with Dr Patel PDMP PDMP Reviewed: Not Reviewed Attestations 2 Medical Necessity Statement*: Patient continues to require ongoing hospitalization and management, with care expected to cross 2 midnights, with ongoing management of angina, volume overload, cardiology evaluation and stress test Coding Level of Care Code 27556 Diagnoses Atypical chest pain R07.89 CKD stage 4 secondary to hypertension I12.9; N18.4 Diabetes type 2, uncontrolled Kidney disease with fluid retention N28.9 History of left below knee amputation Z89.512
[2025-02-18] MEDS: heparin drip 25,000 UNIT/500 ML PREMIX 25.74 UNIT IV (12:01)
--- NOTE | 2025-02-18 14:15 | P.PN_ITS ---
Subjective 2 Subjective: Feeling better with less SOB and swelling Vitals/I&O/Wt Last Vital Signs Temp 98.3 F 02/18/25 07:46 Pulse 70 02/18/25 11:41 Resp 18 02/18/25 11:41 BP 175/73 02/18/25 11:41 Pulse Ox 94 02/18/25 11:41 O2 Del Method Room Air 02/18/25 08:00 O2 Flow Rate 2 02/16/25 09:53 02/17/25 02/18/25 02/18/25 22:59 06:59 14:59 Intake Total 305.609 / 901.609 228.15 / 1129.759 695.131 / 695.131 Output Total 900 / 1400 1375 / 2775 Balance -594.391 / -498.391 -1146.85 / -1645.241 695.131 / 695.131 Weight last 48 hrs Weight 254 lb 10.142 oz Weight 257 lb 7.999 oz Weight 257 lb 0.944 oz Physical Exam 2 Narrative: General: In no acute distress Neck: No jugular venous distention or carotid bruits Heart: Normal S1 and S2 with a regular rate and rhythm, no cardiac murmurs Lungs: Normal respiratory effort with no use of intercostal muscles, clear lungs sounds to auscultation Extremities: 1+ bilateral lower extremity edema Neuro: Alert and oriented x 3 Data 02/18/25 02:04 02/18/25 02:04 A&P Assessment and plan 1. Exertional dyspnea: 2. Elevated troponin: 3. CHF (congestive heart failure): 4. Acute on chronic renal insufficiency: 5. CKD (chronic kidney disease): 6. Substernal chest pain: Plan: Volume overload continues to improve with diuresis. I/Os net negative 1L last 24 hours Cr stable at 5.8 Being set up to start outpatient hemodialysis Hypertensive increase hydralazine to 75 mg 3 times a day. May need to increase to 100mg tid Echo 02/16/25: Hypokinetic apical septal and apical inferior wall segments - unclear if new or old. Normal EF 56% Lexiscan nuc stress test tomorrow Continue all other current cardiac medications including IV heparin PDMP PDMP Reviewed: Not Reviewed Attestations 2 Medical Necessity Statement*: needs another 24 hours in the hospital due to CHF Coding Level of Care Code 20239 Diagnoses Exertional dyspnea R06.09 Elevated troponin R79.89 CHF (congestive heart failure) I50.9 Acute on chronic renal insufficiency N28.9; N18.9 CKD (chronic kidney disease) N18.9 Substernal chest pain R07.2
[2025-02-18 16:13] LABS: Partial Thromboplastin Time 55.9 SECONDS (23.9-36.7)
[2025-02-18 21:52] LABS: Partial Thromboplastin Time 58.5 SECONDS (23.9-36.7)
[2025-02-19] VITALS (12 sets, daily range): BP systolic 139–174; BP diastolic 58–92; PULSE 68–78; RESP 15–22; TEMP 36.4–37; O2SAT 93–97
[2025-02-19 04:30] LABS: Magnesium 2.6 mg/dL (1.7-2.3)
[2025-02-19 04:33] LABS: Partial Thromboplastin Time 59.3 SECONDS (23.9-36.7)
[2025-02-19] MEDS: bumetanide 0.25 mg/mL SDV 4 mL 1 MG IVP (05:05)
[2025-02-19 08:13] LABS: Hematocrit 29.7 % (37-53); Hemoglobin 9.50 g/dL (11.27-16.99); Mean Corpuscular HGB Conc 32.0 g/dL (30-55); Mean Corpuscular Hemoglobin 26.7 pg (27-33); Mean Corpuscular Volume 83.4 fl (82-101); Nucleated Red Blood Cells % 0 %; Platelet Count 336 10^3/cmm (157-399); Red Blood Count 3.56 10^6/uL (3.85-5.65); White Blood Count 8.97 10^3/uL (3.29-11.43)
[2025-02-19 08:27] LABS: Alanine Aminotransferase 8 U/L (0-41); Albumin Level 3.2 g/dL (3.5-5.2); Alkaline Phosphatase 67 U/L (40-130); Anion Gap 22.5 (5-19); Aspartate Amino Transferase 11 U/L (0-40); Blood Urea Nitrogen 78 mg/dL (8-23); Calcium 8.5 mg/dL (8.5-10.5); Carbon Dioxide 21 mmol/L (22-29); Chloride 94 mmol/L (98-107); Globulin 3.5 g/dL (1.3-4.6); Glucose 127 mg/dL (65-115); Osmolality Calculated 303 mOsm/kg (285-295); Potassium 3.5 mmol/L (3.5-5.1); Sodium 134 mmol/L (136-145); Total Protein 6.7 g/dL (6.6-8.7)
[2025-02-19] MEDS: insulin glargine 100 units/1 mL 20 UNIT SUBCUT ×2 (09:10→17:21)
[2025-02-19] MEDS: heparin drip 25,000 UNIT/500 ML PREMIX 25.52 UNIT IV (09:14)
--- NOTE | 2025-02-19 11:00 | PC.SOCIAL ---
IMM Updated Updated pt on IMM. No questions voiced. Provided pt a copy. Initialed, dated, & timed a copy & placed in chart.
[2025-02-19 11:22] LABS: Partial Thromboplastin Time 46.9 SECONDS (23.9-36.7)
--- NOTE | 2025-02-19 12:53 | P.PN_ITS ---
<Statement entered by Rm Patel MD - 02/19/25 17:54> Patient was evaluated and cared for in conjunction with an advanced practice practitioner. I personally reviewed the chart and all pertinent data. I discussed the patient in detail with the advanced practice practitioner. Please see their note for complete assessment and agreed upon plan of care for the patient. Subjective 2 Subjective: Patient doing well this morning. Denies any chest pressure or chest pain shortness of breath. Stress test was today. Vitals/I&O/Wt Last Vital Signs Temp 98.6 F 02/19/25 04:00 Pulse 73 02/19/25 11:29 Resp 15 02/19/25 11:29 BP 158/65 02/19/25 11:29 Pulse Ox 97 02/19/25 11:29 O2 Del Method Room Air 02/19/25 08:45 O2 Flow Rate 2 02/16/25 09:53 02/18/25 02/19/25 02/19/25 22:59 06:59 14:59 Intake Total 738.687 / 1433.818 176.939 / 9224.490 1585.749 / 1087.749 Output Total 1125 / 1125 725 / 1850 Balance -386.313 / 308.818 -548.061 / -124.842 4626.749 / 1087.749 Weight last 48 hrs Weight 252 lb 6.868 oz Weight 252 lb 6.868 oz Weight 254 lb 10.142 oz Physical Exam 2 Narrative: General: No apparent distress, healthy appearing, well nourished HENMT: normoceophalic Neck: No carotid bruit bilaterally Muskuloskeletal: LLE AKA Respiratory: Normal respiratory effort, right posterior lower lobe fine crackles, no use of accessory muscles Cardio: No JVD, regular rate, regular rhythm, S1 S2 normal, no murmurs, peripheral pulses 2+ radial palpated bilaterally GI: Normal to inspection, nondistended Extremities: Full ROM, normal, normal capillary refill, no cyanosis, right lower extremity with wound, 1+ edema right lower extremity Neuro: Alert and oriented x4 Psych: Affect normal, denies suicidal ideation, mental status grossly normal Data 02/19/25 04:00 02/19/25 04:00 A&P Assessment and plan 1. Exertional dyspnea: 2. Elevated troponin: 3. CHF (congestive heart failure): 4. Acute on chronic renal insufficiency: 5. CKD (chronic kidney disease): 6. Substernal chest pain: Plan: Volume overload- continue diuresis Bumex 1 mg q12 Stress test showed old TX vs scarring in mid to distal anterior and inferoapical wall surrounded by small area of darron-infarct ischemia with elevated TID ratio. Patient is not having any active chest pressure/pain. Reviewed this with Dr. Patel. From cardiology perspective, can be discharged home and seen on an outpatient basis in the clinic. At that time, consideration will be given for possible angiogram. For now, continue medical therapy with aspirin, statin, beta shawna. Continue amlodipine for bp management. PDMP PDMP Reviewed: Not Reviewed Attestations 2 Medical Necessity Statement*: Deferred to primary. Coding Level of Care Code Acute Code for g Fwd Diagnoses Exertional dyspnea R06.09 Elevated troponin R79.89 CHF (congestive heart failure) I50.9 Acute on chronic renal insufficiency N28.9; N18.9 CKD (chronic kidney disease) N18.9 Substernal chest pain R07.2
--- NOTE | 2025-02-19 14:30 | P.CONIM_ITS ---
Providers/Reason For Consult 2 Consulting Physician/Specialty*: Alex Norris MD/telenephrology Reason for Consult*: CKD stage V Requesting Physician: Dr. Hendrix Attending Physician: Lorenza Hendrix MD Primary Care Provider: MRAK Kilpatrick History of Present Illness History of Present Illness Martir Kruger is a 60 year old male history of CKD stage IV/V follows with [facility] getting prepared for dialysis. History of type 2 diabetes hyperlipidemia left below no knee amputation, hypertension, pulmonary hypertension and pulmonary edema, heart failure preserved EF. Patient was admitted on February 16, 2025 with volume overload, dyspnea on exertion, elevated troponins patient was started on IV Bumex and oral metolazone. Patient states that he is feeling better but he still has dyspnea on exertion and some shortness of breath. Patient is stress test today that showed darron-infarct ischemia elevated 3 times daily ratio from cardiology perspective they wanted outpatient follow-up with likely angiogram once starting dialysis. Renal was called to evaluate patient for CKD stage V with mild increase in creatinine with diuresis. Review of Systems 2 Narrative: Short of breath dyspnea exertion orthopnea good appetite no itching no cramps no metallic taste in his mouth no nausea no vomiting no diarrhea decreased edema states he feels better than on admission. States he still urinating Medications/Allergies Home Medications ?Medication ?Instructions ?Recorded ?Confirmed ?Last Taken ?Type prosthetic leg sleeve #2 ea 11/11/23 02/16/25 Unkn own Rx prosthetic supplies #1 ea 11/11/23 02/16/25 Unkn own Rx prosthetic sleeve and liners #1 ea 11/17/24 02/16/25 Unknown Rx metoprolol tartrate 25 mg tablet 25 mg PO BID 12/05/24 02/16/25 02/15/25 17:00 History amlodipine 10 mg tablet 10 mg PO DAILY 30 days #30 t abs 12/09/24 02/16/25 02/15/25 08:00 Rx flash glucose sensor (FreeStyle #2 kits 02/05/2502/16 Unknown Rx Julius 2 Sensor kit) furosemide 40 mg tablet (Lasix) 40 mg PO QAM #90 tabs 02/05/25 02/16/25 02/15/25 08:00 Rx insulin glargine 100 unit/mL (3 See Rx Instructions .R oute 02/14/25 02/16/25 02/15/25 08:00 Rx mL) subcutaneous pen (Lantus .COMPLEX #15 mL Solostar U-100 Insulin) insulin regular hum U-500 conc 500 See Rx Instructions .Route 02/14/25 02/16/25 02/15/25 08:00 Rx unit/mL(3 mL) subcut pen (Humulin .COMPLEX #12 mL R U-500 (Conc) Insulin Kwikpen) hydralazine 50 mg tablet 50 mg PO BID 02/16/2502/15/25 17:00 History Allergies Allergy/AdvReac Type Severity Reaction Status Date / Time No Known Allergies Allergy Verified 12/28/24 10:29 Current Medications Generic Name Dose Route Start Last Admin Trade Name Freq PRN Reason Stop Dose Admin Amlodipine Besylate 10 mg 02/16/25 05:00 02/19/25 05:04 Amlodipine 10 Mg Tablet PO 10 mg DAILY MANUELA Administration Aspirin 81 mg 02/17/25 05:00 02/19/25 05:04 Aspirin 81 Mg Ec Tablet PO 81 mg DAILY MANUELA Administration Budesonide 0.5 mg 02/16/25 09:15 02/19/25 08:33 Budesonide 0.5 Mg/2 Ml Neb INHALATION Not Given BID.RESPIRATORY MANUELA Bumetanide 1 mg 02/16/25 03:15 02/19/25 05:05 Bumetanide 0.25 Mg/Ml Sdv 4 Ml IVP 1 mg Q12H MANUELA Administration Docusate Sodium 100 mg 02/16/25 05:00 02/19/25 05:46 Docusate Sodium 100 Mg Capsule PO Not Given BID MANUELA Hydralazine HCl 75 mg 02/18/25 13:00 02/19/25 12:39 Hydralazine 50 Mg Tablet PO 75 mg TID MANUELA Administration Heparin Sodium/Sodium Chloride 25,000 unit in 500 mls @ 27.6 mls/hr 02/16/25 09:15 02/19/25 11:43 Heparin Drip IV 12 unit/kg/hr CONT MANUELA 27.6 mls/hr Protocol Titration 12 UNIT/KG/HR Insulin Glargine 20 unit 02/16/25 18:00 02/19/25 09:10 Insulin Glargine 100 Units/1 Ml SUBCUT 20 unit BIDWM MANUELA Administration Insulin Human Lispro 0 unit 02/16/25 12:00 02/19/25 11:53 Insulin Lispro 100 Unit/1 Ml SUBCUT 6 unit WM&BEDTIME MANUELA Administration Protocol Metoprolol Tartrate 50 mg 02/16/25 03:15 02/19/25 05:04 Metoprolol Tartrate 25 Mg Tablet PO 50 mg BID MANUELA Administration Nitroglycerin 1 inch 02/16/25 05:30 02/19/25 11:46 Nitroglycerin 1 Gm/Inch Oint Pkt TOPICAL Not Given Q6H [facility] Pantoprazole Sodium 40 mg 02/16/25 03:15 02/19/25 05:[address] 40 Mg Tablet PO 40 mg DAILY MANUELA Administration PFSH Acute 2 PFSH: Medical History (Updated 02/19/25 @ 14:37 by Arjun Norris MD) Kidney disease with fluid retention Acute hypoxic respiratory failure Pulmonary edema Hypertension Diabetes type 2, uncontrolled Hyponatremia Acute kidney injury superimposed on chronic kidney disease Acute decompensated heart failure Fluid overload Hyperlipidemia Poorly fitting prosthesis for below knee amputation (BKA) Contrast-induced nephropathy Hypertensive crisis Need for dental care Migraine Intractable vomiting Acute on chronic kidney failure Hypertensive urgency Hyperosmolar hyperglycemic state (HHS) DKA (diabetic ketoacidosis) Prosthesis fitting Hypokalemia Hypertensive urgency Microscopic hematuria Nausea and vomiting Diabetes mellitus with gastroparesis Osteomyelitis Contrast dye induced nephropathy Acute renal failure superimposed on stage 3b chronic kidney disease Peripheral arterial disease Acquired rearfoot varus Diabetic peripheral neuropathy associated with type 2 diabetes mellitus 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 Chronic renal impairment Hyperlipidemia associated with type 2 diabetes mellitus Statin intolerance Foot abscess, left Diabetic foot infection Essential hypertension Hyperlipidemia, mixed Surgical History S/P hemodialysis catheter insertion S/P BKA (below knee amputation) (04/05/21) History of partial amputation of toe of right foot History of amputation of lesser toe Amputated toe of right foot secondary to osteomyelitis 4th right toe Family History Father Diabetes Mother Diabetes Other Hypertension Social History (Updated 02/16/25 @ 03:46 by Martir Finnegan MD) Smoking and tobacco/nicotine status: never used tobacco/nicotine Second hand smoke exposure: No Alcohol intake: former Substance/Drug Use: never Additional social history: He wants full code as discussed with Martir Finnegan MD on 02/16/2025 Adopted: No Caregiver/support person: No Lives independently: Yes Household members: spouse Housing: House Marital status: service: No Current occupational status: employed 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 Pets and animals: Yes Do you think of yourself as: Straight/Heterosexual Current gender identity: Male Vitals/I&O/Wt Last Vital Signs Temp 98.6 F 02/19/25 04:00 Pulse 73 02/19/25 11:29 Resp 15 02/19/25 11:29 BP 158/65 02/19/25 11:29 Pulse Ox 97 02/19/25 11:29 O2 Del Method Room Air 02/19/25 08:45 O2 Flow Rate 2 02/16/25 09:53 02/18/25 02/19/25 02/19/25 22:59 06:59 14:59 Intake Total 738.687 / 1433.818 176.939 / 4078.206 5744.749 / 1087.749 Output Total 1125 / 1125 725 / 1850 500 / 500 Balance -386.313 / 308.818 -548.061 / -239.243 587.749 / 587.749 Weight last 48 hrs Weight 114.5 kg Weight 114.5 kg Weight 115.5 kg Physical Exam 2 Narrative: Patient sitting up in bed comfortable on room air. Vital signs noted. HEENT normocephalic/atraumatic. Neck is supple no JVP. Lungs have good air movement heart is regular positive S1-S2 Abdomen is soft positive bowel sound nontender. Extremities right leg edema left leg below-knee amputation. Neuro awake alert oriented x 3 no asterixis Data 02/19/25 04:00 02/19/25 04:00 A&P Assessment and plan 1. Stage 5 chronic kidney disease not on chronic dialysis: 60-year-old man history of heart failure preserved EF, peripheral vascular disease, morbid obesity, diabetes, hypertension. Please note patient has had acute kidney injury requiring dialysis in the past. 1. CKD stage V patient is being evaluated by [facility] [place] [facility] to start dialysis soon. Etiology of CKD is likely due to obesity, hypertension, diabetes and cardiorenal syndrome. Patient has proteinuria with a microalbumin creatinine ratio of approximately 3 g for the last year that has now gone up to 3.7 g of microalbumin per gram of creatinine 2. Mild acute kidney injury with diuresis. At this time we will decrease diuretics. If patient goes into volume overload significant shortness of breath or if renal function continues to deteriorate patient may need to start dialysis sooner. Please initiate save the vein protocol and patient's nondominant arm. Echo reviewed without pericardial effusion, normal EF of 55% normal LV wall thickness. Normal right ventricle. 3. Anemia- iron saturation of 15%, check ferritin and can give a dose of Epogen 4. Hyponatremia likely from volume overload and from renal insufficiency will decrease Bumex and monitor. 5. Metabolic acidosis improving. 6. Hypokalemia from diuretics will give a dose of potassium. 7. Diabetic control per PMD 8. Check phosphorus and likely add a binder 9. Minimize magnesium it is elevated from his ESRD 10. Albumin of 3.2 needs nutrition Plan: Decrease diuretic dose. Monitor volume status chemistries potassium magnesium and creatinine. Monitor for need of initiating dialysis on this admission versus discharge with outpatient dialysis soon. PDMP PDMP Reviewed: Not Reviewed Consult Attestations 2 Medical Necessity Statement: Acute kidney injury on CKD stage IV/V. Acute exacerbation of heart failure preserved EF on top of chronic heart failure preserved EF. Time Spent in Patient Care: Greater than 35 minutes (>than 50% of time spent in counselling and/or direct pt care on unit) . Coding Level of Care Code Acute Code for Chg Fwd Diagnoses Stage 5 chronic kidney disease not on chronic dialysis N18.5 Chronic kidney disease stage: stage 5 (GFR < 15), not on chronic dialysis
[2025-02-19] MEDS: bumetanide 0.25 mg/mL SDV 4 mL 0.5 MG IVP (15:41)
[2025-02-19] MEDS: epoetin alfa 10,000 unit/mL INJ 10000 UNIT SUBCUT (15:42)
[2025-02-19 15:58] LABS: Uric Acid 10.7 mg/dL (3.4-7.0)
--- NOTE | 2025-02-19 16:04 | NMCV_ITS ---
NM zeina perf SPECT r/s* [id number] Martir Kruger Age: 60 Gender: M : 1965 Exam Date: 02/19/2025 06:31 Ordering Phys: Gaviota Stephens NP Technologist: AYE Bourgeois Exam Location: [facility] Indications: cp STRESS TEST Please see separate stress test report in [facility] for full findings IMAGE PROTOCOL Rest/Stress 1 Lexiscan Day Radiopharmaceutical Dose (mCi) Administration Site Administered by Rest: Tc-99m 11 IV AYE Bourgeois Sestamibi Stress:Tc-99m 33 IV AYE Owens Sestamibi Rest: 19-Feb-2025 60 Discovery 630 Stress: 19-Feb-2025 30 Discovery 630 0.4mg Lexiscan. Images obtained in supine and prone position. SPECT RESULTS Technical Quality: Good Raw Data Analysis: Normal Image Corrections: No attenuation or motion correction applied Summed Stress Score: 11 Summed Rest Score: 8 Summed Difference Score: 3 PERFUSION FINDINGS Large area of fixed perfusion defect noted in mid to distal anterior and inferoapical wall surrounded by mild area of darron-infarct ischemia overall it is suggestive of old myocardial infarction in the LAD territory FUNCTIONAL RESULTS (calculated via Gated SPECT) Stress Image LV EF (%): 53 Stress EDV (mL):164 TID: 1.15 Stress ESV (mL):77 FUNCTIONAL FINDINGS: Mid to distal anterior apical anteroseptal wall hypokinesis IMPRESSIONS Old myocardial infarction versus scarring noted in mid to distal anterior and inferoapical wall surrounded by small area of darron-infarct ischemia. It is suggestive of ischemic heart disease. TID ratio is elevated which could be secondary to left ventricular hypertrophy or multivessel ischemic heart disease Woodrow Morrow MD (Electronically Signed) Final Date: 19 February 2025 11:13 S
[2025-02-19 18:07] LABS: Partial Thromboplastin Time 58.4 SECONDS (23.9-36.7)
[2025-02-19 19:41] LABS: Glucose Urine UA 1+ (Normal); Nitrate Urine Negative (Negative); Specific Gravity, Urine 1.012 (1.005-1.030)
[2025-02-19 20:15] LABS: Potassium, Radom Urine 27 mmol/L; Urine Random Chloride 49 mmol/L; Urine Random Sodium 60 mmol/L
--- NOTE | 2025-02-19 20:32 | P.PN_ITS ---
Subjective 2 Subjective: the patient was seen in the morning and doing fine did not complain of any chest pain and no resp distress alert and oriented the patient underwent stress test and cardiology onboard nephro also consulted as inpatient as the patient is proceeding with HD as outpatient in [facility] however there is no specific plan of care with dates to follow. Vitals/I&O/Wt Last Vital Signs Temp 98.2 F 02/19/25 19:51 Pulse 70 02/19/25 20:06 Resp 17 02/19/25 20:06 BP 174/84 02/19/25 19:51 Pulse Ox 95 02/19/25 20:06 O2 Del Method Room Air 02/19/25 20:06 O2 Flow Rate 2 02/16/25 09:53 02/19/25 02/19/25 02/19/25 06:59 14:59 22:59 Intake Total 176.939 / 6820.739 1121.749 / 1087.749 672.28 / 1760.029 Output Total 725 / 1850 500 / 500 Balance -548.061 / -239.243 587.749 / 587.749 672.28 / 1260.029 Weight last 48 hrs Weight 114.5 kg Weight 114.5 kg Weight 115.5 kg Physical Exam 2 Narrative: General: Alert and oriented, lying comfortably without any distress HEENT: Normocephalic, atraumatic, grossly unremarkable exam Cardio: normal rate rhythm, normal S1-S2 without any murmurs, rubs, or gallops and JVD normal Respiratory: normal vascular breathing on auscultation without any wheezes, stridor, rhonchi GI: Abdomen soft, nontender, nondistended, normoactive bowel sounds present all 4 quadrants, Neuro: intact cranial nerves motor and sensory and cerebellar/coordination function without any focal neurological deficit Behavior: Appropriate and cooperative Extremities: Adequate palpable pulses, mild trace edema Data 02/19/25 04:00 02/19/25 04:00 A&P Assessment and plan 1. Atypical chest pain: Patient presented with chest pain and exertional dyspnea. Troponin elevated and was kept on heparin infusion, Stress test showed old MN versus scarring. And as per cardiology perspective he is stable for discharge and to follow-up with cardiology as outpatient. And later consideration for possible angiogram will be done. To continue medical therapy with aspirin, statin, beta-shawna. Discontinue heparin Nitroglycerin for chest pain VTE prophylaxis to be administered with heparin 2. CKD stage 4 secondary to hypertension: Patient has apparently been evaluated by casework manager in [place] and is prepping for dialysis, there is no specific date of PermCath insertion or dialysis Nephrology consulted as inpatient since the patient came as a case of fluid overload and could be related to his kidneys. Nephrology recommendation appreciated Avoid nephrotoxins Recheck intake and output monitoring To send for vitamin D, KATHERINE screen, phosphorous, PTH and iron profile considering as a part of chronic kidney disease workup Diuretics to be continued as per nephrology recommendation, Bumex 0.5 mg IV every 12 3. Uncontrolled type 2 diabetes mellitus with hyperglycemia: Carb consistent diet SSI Maintain normoglycemia and frequent glucose monitoring 4. Kidney disease with fluid retention: Patient having CKD stage V and proceeding towards hemodialysis since he is following with a casework manager. Nephrology on board and to follow the plan and recommendation Rest of the plan as mentioned above 5. History of left below knee amputation: Supportive care, no acute issues 6. Hypertension: Continue amlodipine 10 mg daily Metoprolol 50 mg twice daily Hydralazine 75 mg 3 times daily 7. Migraine: Adequate analgesia as per the pain scale Currently stable Plan: Plan: VTE: Heparin twice daily Diet: Renal diabetic nondialysis PDMP PDMP Reviewed: Not Reviewed Attestations 2 Medical Necessity Statement*: Patient will stay overnight for further management of his fluid overload status requiring diuresis and nephrology on board for further plan of his end-stage renal disease as inpatient to avoid readmissions in the future due to fluid overload or other complications from the end-stage renal disease Time Spent in Patient Care: 16 - 35 minutes (>than 50% of time sp ent in counselling and/or direct pt care on unit) . Other Attestations: Patient condition has been discussed at length with the patient/family, I have independently reviewed the chart labs imaging/diagnostics/EKG. the goals of care and code status with the patient/family/NOK/legal textile machinery sales representative, and documented accordingly. The management has been done according to the current clinical condition with respect to patient goals of care and based on recommendations/guidelines. The patient/family has been informed about the current condition and further plan of care. Agreed with the plan of care and understood without any language barrier. Every effort was made to ensure accuracy of histology supervisor. Any obvious errors or omissions should be clarified with the author of the document. Coding Level of Care Code 32012 Diagnoses Atypical chest pain R07.89 CKD stage 4 secondary to hypertension I12.9; N18.4 Uncontrolled type 2 diabetes mellitus with hyperglycemia E11.65 Glycemic state: with hyperglycemia Kidney disease with fluid retention N28.9 History of left below knee amputation Z89.512 Hypertension I10 Migraine G43.909
[2025-02-19] MEDS: heparin 5,000 unit/mL INJ 1 mL 5000 UNIT SUBCUT (22:07)
[2025-02-20] VITALS (9 sets, daily range): BP systolic 144–177; BP diastolic 59–81; PULSE 71–82; RESP 16–26; TEMP 36.6–36.7; O2SAT 95–100
[2025-02-20 00:17] LABS: Partial Thromboplastin Time 39.4 SECONDS (23.9-36.7)
[2025-02-20] MEDS: bumetanide 0.25 mg/mL SDV 4 mL 0.5 MG IVP ×2 (04:58→17:23)
--- NOTE | 2025-02-20 08:07 | PC.NURSE ---
Dexcom read 196
[2025-02-20 08:13] LABS: Hematocrit 29.5 % (37-53); Hemoglobin 9.30 g/dL (11.27-16.99); Mean Corpuscular HGB Conc 31.5 g/dL (30-55); Mean Corpuscular Hemoglobin 26.1 pg (27-33); Mean Corpuscular Volume 82.9 fl (82-101); Nucleated Red Blood Cells % 0 %; Platelet Count 339 10^3/cmm (157-399); Red Blood Count 3.56 10^6/uL (3.85-5.65); White Blood Count 8.82 10^3/uL (3.29-11.43)
[2025-02-20] MEDS: insulin glargine 100 units/1 mL 20 UNIT SUBCUT ×2 (08:23→17:36)
--- NOTE | 2025-02-20 08:33 | PC.NURSE ---
Lantus 20 units given in RUQ ABD. 4 units Lispro given in LUQ ABD. Pt tolerated well. Call light within reach. POC ongoing
[2025-02-20 08:42] LABS: Calcium 8.3 mg/dL (8.5-10.5)
[2025-02-20 08:43] LABS: Alanine Aminotransferase 8 U/L (0-41); Albumin Level 3.2 g/dL (3.5-5.2); Alkaline Phosphatase 68 U/L (40-130); Anion Gap 21.3 (5-19); Aspartate Amino Transferase 11 U/L (0-40); Blood Urea Nitrogen 79 mg/dL (8-23); Calcium 8.5 mg/dL (8.5-10.5); Carbon Dioxide 21 mmol/L (22-29); Chloride 94 mmol/L (98-107); Ferritin 277 ng/mL (30-400); Globulin 3.7 g/dL (1.3-4.6); Glucose 198 mg/dL (65-115); Magnesium 2.7 mg/dL (1.7-2.3); Osmolality Calculated 303 mOsm/kg (285-295); Potassium 4.3 mmol/L (3.5-5.1); Sodium 132 mmol/L (136-145); Total Protein 6.9 g/dL (6.6-8.7)
--- NOTE | 2025-02-20 09:14 | PC.NURSE ---
Lab called for critical lab valve. Creatinine valve @ 6.6. N change from last blood draw. Notified Dr. Graves. POC ongoing
[2025-02-20] MEDS: heparin 5,000 unit/mL INJ 1 mL 5000 UNIT SUBCUT ×2 (09:45→21:07)
--- NOTE | 2025-02-20 11:26 | PC.NURSE ---
dexcom reading at 1127am is 162
--- NOTE | 2025-02-20 11:36 | PM.CONSULT ---
Providers/Reason For Consult Consulting Physician/Specialty*: Dr. Anne general surgery Reason for Consult*: Tunneled dialysis catheter insertion Attending Physician: Lorenza Hendrix MD Primary Care Provider: MARK Kilpatrick History of Present Illness History of Present Illness Martir Kruger is a 60 year old male history of chronic kidney disease surgery was consulted for tunneled dialysis catheter insertion. Patient has had a temporary dialysis catheter on the right neck in the past. Still has not initiated dialysis. Plan to start dialysis in the hospital. Medications/Allergies Home Medications ?Medication ?Instructions ?Recorded ?Confirmed ?Last Taken ?Type prosthetic leg sleeve #2 ea 11/11/23 02/16/25 Unknown Rx prosthetic supplies #1 ea 11/11/23 02/16/25 Unknown Rx prosthetic sleeve and liners #1 ea 11/17/24 02/16/25 Unknown Rx metoprolol tartrate 25 mg tablet 25 mg PO BID 12/05/24 02/16/25 02/15/25 17:00 History amlodipine 10 mg tablet 10 mg PO DAILY 30 days #30 tabs 12/09/24 02/16/25 02/15/25 08:00 Rx flash glucose sensor (FreeStyle #2 kits 02/05/25 02/16/25 Unknown Rx Julius 2 Sensor kit) furosemide 40 mg tablet (Lasix) 40 mg PO QAM #90 tabs 02/05/25 02/16/25 02/15/25 08:00 Rx insulin glargine 100 unit/mL (3 See Rx Instructions .Route 02/14/25 02/16/25 02/15/25 08:00 Rx mL) subcutaneous pen (Lantus .COMPLEX #15 mL Solostar U-100 Insulin) insulin regular hum U-500 conc 500 See Rx Instructions .Route 02/14/25 02/16/25 02/15/25 08:00 Rx unit/mL(3 mL) subcut pen (Humulin .COMPLEX #12 mL R U-500 (Conc) Insulin Kwikpen) hydralazine 50 mg tablet 50 mg PO BID 02/16/25 02/16/25 02/15/25 17:00 History Allergies Allergy/AdvReac Type Severity Reaction Status Date / Time No Known Allergies Allergy Verified 12/28/24 10:29 Current Medications Generic Name Dose Route Start Last Admin Trade Name Freq PRN Reason Stop Dose Admin Amlodipine Besylate 10 mg 02/16/25 05:00 02/20/25 04:59 Amlodipine 10 Mg Tablet PO 10 mg DAILY MANUELA Administration Aspirin 81 mg 02/17/25 05:00 02/20/25 04:58 Aspirin 81 Mg Ec Tablet PO 81 mg DAILY MANUELA Administration Budesonide 0.5 mg 02/16/25 09:15 02/20/25 08:46 Budesonide 0.5 Mg/2 Ml Neb INHALATION Not Given BID.RESPIRATORY MANUELA Bumetanide 0.5 mg 02/20/25 05:00 02/20/25 04:58 Bumetanide 0.25 Mg/Ml Sdv 4 Ml IVP 0.5 mg Q12H MANUELA Administration Docusate Sodium 100 mg 02/16/25 05:00 02/20/25 04:59 Docusate Sodium 100 Mg Capsule PO 100 mg BID MANUELA Administration Heparin Sodium (Porcine) 5,000 unit 02/19/25 21:00 02/20/25 09:45 Heparin 5,000 Unit/Ml Inj 1 Ml SUBCUT 5,000 unit Q12H MANUELA Administration Hydralazine HCl 75 mg 02/18/25 13:00 02/20/25 04:58 Hydralazine 50 Mg Tablet PO 75 mg TID MANUELA Administration Insulin Glargine 20 unit 02/16/25 18:00 02/20/25 08:23 Insulin Glargine 100 Units/1 Ml SUBCUT 20 unit BIDWM MANUELA Administration Insulin Human Lispro 0 unit 02/16/25 12:00 02/20/25 08:24 Insulin Lispro 100 Unit/1 Ml SUBCUT 4 unit WM&BEDTIME MANUELA Administration Protocol Metoprolol Tartrate 50 mg 02/16/25 03:15 02/20/25 04:59 Metoprolol Tartrate 25 Mg Tablet PO 50 mg BID MANUELA Administration Nitroglycerin 1 inch 02/16/25 05:30 02/20/25 08:07 Nitroglycerin 1 Gm/Inch Oint Pkt TOPICAL Not Given Q6H MANUELA Pantoprazole Sodium 40 mg 02/16/25 03:15 02/20/25 04:[address] 40 Mg Tablet PO 40 mg DAILY MANUELA Administration PFSH Acute PFSH: Medical History (Updated 02/19/25 @ 20:44 by Lorenza Hendrix MD) Migraine Kidney disease with fluid retention Acute hypoxic respiratory failure Pulmonary edema Hypertension Diabetes type 2, uncontrolled Hyponatremia Acute kidney injury superimposed on chronic kidney disease Acute decompensated heart failure Fluid overload Hyperlipidemia Poorly fitting prosthesis for below knee amputation (BKA) Contrast-induced nephropathy Hypertensive crisis Need for dental care Intractable vomiting Acute on chronic kidney failure Hypertensive urgency Hyperosmolar hyperglycemic state (HHS) DKA (diabetic ketoacidosis) Prosthesis fitting Hypokalemia Hypertensive urgency Microscopic hematuria Nausea and vomiting Diabetes mellitus with gastroparesis Osteomyelitis Contrast dye induced nephropathy Acute renal failure superimposed on stage 3b chronic kidney disease Peripheral arterial disease Acquired rearfoot varus Diabetic peripheral neuropathy associated with type 2 diabetes mellitus 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 Chronic renal impairment Hyperlipidemia associated with type 2 diabetes mellitus Statin intolerance Foot abscess, left Diabetic foot infection Essential hypertension Hyperlipidemia, mixed Surgical History S/P hemodialysis catheter insertion S/P BKA (below knee amputation) (04/05/21) History of partial amputation of toe of right foot History of amputation of lesser toe Amputated toe of right foot secondary to osteomyelitis 4th right toe Family History Father Diabetes Mother Diabetes Other Hypertension Social History (Updated 02/16/25 @ 03:46 by Martir Finnegan MD) Smoking and tobacco/nicotine status: never used tobacco/nicotine Second hand smoke exposure: No Alcohol intake: former Substance/Drug Use: never Additional social history: He wants full code as discussed with Martir Finnegan MD on 02/16/2025 Adopted: No Caregiver/support person: No Lives independently: Yes Household members: spouse Housing: House Marital status: service: No Current occupational status: employed 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 Pets and animals: Yes Do you think of yourself as: Straight/Heterosexual Current gender identity: Male Vitals/I&O/Wt Last Vital Signs Temp 97.9 F 02/20/25 07:37 Pulse 72 02/20/25 08:00 Resp 18 02/20/25 08:00 BP 154/73 02/20/25 07:37 Pulse Ox 96 02/20/25 08:00 O2 Del Method Room Air 02/20/25 08:00 O2 Flow Rate 2 02/16/25 09:53 02/19/25 02/20/25 02/20/25 22:59 06:59 14:59 Intake Total 735.30 / 1823.049 Output Total 350 / 850 375 / 1225 600 / 600 Balance 385.30 / 973.049 -375 / 598.049 -600 / -600 Weight last 48 hrs Weight 255 lb 4.725 oz Weight 255 lb 4.725 oz Weight 252 lb 6.868 oz Weight 252 lb 6.868 oz Physical Exam Narrative: Neck: Grossly normal Chest: Unlabored breathing room air. No lymphadenopathy. Heart: Regular rate and rhythm. Abdomen: Soft, nontender, nondistended. No masses or lymphadenopathy. Data 02/21/25 05:14 02/21/25 05:14 A&P Assessment and plan 1. CKD (chronic kidney disease): Plan: 60-year-old male whom surgery was consulted for tunneled dialysis catheter insertion. I had an extensive discussion with the patient and answered all questions. I have discussed non operative/non procedural options and the patient still decides to proceed. Discussed risks and benefits of tunneled dialysis catheter insertion and patient decides to proceed. Patient understands the risks include bleeding, infection, massive bleeding and , arterial injury and stroke, pneumothorax, hemothorax, catheter malfunction, and the patient still decides to proceed. PDMP PDMP Reviewed: Not Reviewed Coding Level of Care Code 63043 Diagnoses CKD (chronic kidney disease) N18.9
--- NOTE | 2025-02-20 14:20 | PM.MISC ---
Miscellaneous Note Note: NPO after midnight. Plan for TDC tomorrow. Discussed with hospitalist.
--- NOTE | 2025-02-20 14:52 | PC.NURSE ---
Dr. Anne is notified that patient had some questions, Provider is transferred to patients room phone so they could talk.
--- NOTE | 2025-02-20 16:32 | PC.NURSE ---
Patient's dexcom is 128.
--- NOTE | 2025-02-20 16:53 | P.PN_ITS ---
Subjective 2 Subjective: Patient seen in the morning,. Was having mild shortness of breath and cough No fever. Patient agreeing for proceeding with hemodialysis here since there is no specific plan of PermCath insertion or hemodialysis approach site at [place]. Nephrology on board and patient for tunneled PermCath tomorrow after discussing with the surgery Vitals/I&O/Wt Last Vital Signs Temp 97.9 F 02/20/25 07:37 Pulse 73 02/20/25 15:26 Resp 22 H 02/20/25 15:26 BP 164/81 02/20/25 15:26 Pulse Ox 97 02/20/25 15:26 O2 Del Method Room Air 02/20/25 08:00 O2 Flow Rate 2 02/16/25 09:53 02/20/25 02/20/25 02/20/25 06:59 14:59 22:59 Intake Total 360 / 360 Output Total 375 / 1225 600 / 600 Balance -375 / 598.049 -240 / -240 Weight last 48 hrs Weight 115.8 kg Weight 115.8 kg Weight 114.5 kg Weight 114.5 kg Physical Exam 2 Narrative: General: Alert and oriented, lying comfortably without any distress HEENT: Normocephalic, atraumatic, grossly unremarkable exam Cardio: normal rate rhythm, normal S1-S2 without any murmurs, rubs, or gallops and JVD normal Respiratory: normal vascular breathing on auscultation with bilateral basal crackles without wheezes GI: Abdomen soft, nontender, nondistended, normoactive bowel sounds present all 4 quadrants, Neuro: intact cranial nerves motor and sensory and cerebellar/coordination function without any focal neurological deficit Behavior: Appropriate and cooperative Extremities: Adequate palpable pulses, pitting edema on the right leg, left leg stump Data 02/20/25 07:48 02/20/25 07:48 A&P Assessment and plan 1. Atypical chest pain: Patient presented with chest pain and exertional dyspnea. Troponin elevated and was kept on heparin infusion, Stress test showed old CT versus scarring. And as per cardiology perspective he is stable for discharge and to follow-up with cardiology as outpatient. And later consideration for possible angiogram will be done. To continue medical therapy with aspirin, statin, beta-shawna. Discontinue heparin Nitroglycerin for chest pain VTE prophylaxis to be administered with heparin 2. CKD stage 4 secondary to hypertension: Patient has apparently been evaluated by application assistant in [place] and is prepping for dialysis, there is no specific date of PermCath insertion or dialysis Nephrology consulted as inpatient since the patient came as a case of fluid overload and could be related to his kidneys. Nephrology recommendation appreciated Avoid nephrotoxins Recheck intake and output monitoring Vitamin D level is low, PTH high with correlation to chronic kidney disease, follow rest of the stat workup. Iron profile reviewed Diuretics to be continued as per nephrology recommendation, Bumex 0.5 mg IV every 12 Monitor intake and output Daily renal function monitoring For PermCath insertion tomorrow and n.p.o. from midnight as per discussion with the surgery, consult placed and to follow it tomorrow 3. Uncontrolled type 2 diabetes mellitus with hyperglycemia: Carb consistent diet SSI Maintain normoglycemia and frequent glucose monitoring 4. Kidney disease with fluid retention: Patient having CKD stage V and proceeding towards hemodialysis since he is following with a application assistant. Nephrology on board and to follow the plan and recommendation Rest of the plan as mentioned above 5. History of left below knee amputation: Supportive care, no acute issues 6. Hypertension secondary to other renal disorders: Continue amlodipine 10 mg daily Metoprolol 50 mg twice daily Hydralazine 75 mg 3 times daily 7. Migraine: Adequate analgesia as per the pain scale Currently stable Plan: Plan: VTE: Heparin twice daily Diet: Renal diabetic nondialysis PDMP PDMP Reviewed: Not Reviewed Attestations 2 Medical Necessity Statement*: Patient will stay more than 2 midnights considering patient required PermCath insertion and later hemodialysis session to optimize his condition Time Spent in Patient Care: 16 - 35 minutes (>than 50% of time sp ent in counselling and/or direct pt care on unit) . Other Attestations: Patient condition has been discussed at length with the patient/family, I have independently reviewed the chart labs imaging/diagnostics/EKG. the goals of care and code status with the patient/family/NOK/legal sales training representative, and documented accordingly. I have reconciled the medications after confirmation/comorbidities/current clinical condition. The management has been done according to the current clinical condition with respect to patient goals of care and based on recommendations/guidelines. The patient/family has been informed about the current condition and further plan of care. Agreed with the plan of care and understood without any language barrier. Every effort was made to ensure accuracy of osd clerk. Any obvious errors or omissions should be clarified with the author of the document. Coding Level of Care Code 50549 Diagnoses Atypical chest pain R07.89 CKD stage 4 secondary to hypertension I12.9; N18.4 Uncontrolled type 2 diabetes mellitus with hyperglycemia E11.65 Glycemic state: with hyperglycemia Kidney disease with fluid retention N28.9 History of left below knee amputation Z89.512 Hypertension secondary to other renal disorders I15.1 Hypertension type: secondary to other renal disorders Migraine G43.909
--- NOTE | 2025-02-20 17:34 | PC.NURSE ---
Rechecked pt's Dexcom, BS 158. 2 units of lispro given in abd
--- NOTE | 2025-02-20 19:37 | P.PN_ITS ---
Subjective 2 Subjective: Patient complains of advised weakness fatigue, shortness of breath with exertion Medications: Reviewed: Yes Vitals/I&O/Wt Last Vital Signs Temp 98.1 F 02/20/25 19:35 Pulse 82 02/20/25 19:35 Resp 18 02/20/25 19:35 BP 177/72 02/20/25 19:35 Pulse Ox 97 02/20/25 19:35 O2 Del Method Room Air 02/20/25 19:35 O2 Flow Rate 2 02/16/25 09:53 02/20/25 02/20/25 02/20/25 06:59 14:59 22:59 Intake Total 360 / 360 240 / 600 Output Total 375 / 1225 600 / 600 350 / 950 Balance -375 / 598.049 -240 / -240 -110 / -350 Weight last 48 hrs Weight 115.8 kg Weight 115.8 kg Weight 114.5 kg Weight 114.5 kg Physical Exam 2 Narrative: Patient sitting up in bed comfortable on room air. Vital signs noted. HEENT normocephalic/atraumatic. Neck is supple no JVP. Lungs have good air movement heart is regular positive S1-S2 Abdomen is soft positive bowel sound nontender. Extremities right leg edema left leg below-knee amputation. Neuro awake alert oriented x 3 no asterixis Data 02/20/25 07:48 02/20/25 07:48 A&P Assessment and plan 1. Stage 5 chronic kidney disease not on chronic dialysis: 60-year-old man history of heart failure preserved EF, peripheral vascular disease, morbid obesity, diabetes, hypertension. Patient has history of CKD stage V followed by nephrology-Dr. Haro as outpatient. Please note patient has had acute kidney injury requiring dialysis in the past. 1. CKD stage V: Etiology CKD due to obesity hypertension diabetes and cardiorenal syndrome. Also has proteinuria with approximately 3 g of UPCR from the past. His fence supervisor is preparing him for starting dialysis via tunneled catheter as outpatient and transition to AV graft in the near future. Patient has declined peritoneal dialysis and opted for hemodialysis. - His GFR is below 10 and patient has some uremic symptoms as well as recurrent volume overload in the setting of underlying diastolic CHF. Recommended HD initiation while in the hospital and patient agreed. Requested general surgery for tunneled catheter placement and initiate HD once placed. 2. Anemia- iron saturation of 15%, check ferritin and can give a dose of Epogen 3.. Hyponatremia likely from volume overload and from renal insufficiency 5. Metabolic acidosis improving. 6. Hypokalemia , resolved 7. Diabetic control per PMD 8. Check phosphorus and likely add a binder Patient evaluated using audiovisual cart. Time spent 40 minutes. PDMP PDMP Reviewed: Not Reviewed Attestations 2 Medical Necessity Statement*: Per medicine team Coding Level of Care Code Acute Code for Chg Fwd Diagnoses Stage 5 chronic kidney disease not on chronic dialysis N18.5 Chronic kidney disease stage: stage 5 (GFR < 15), not on chronic dialysis
[2025-02-21] VITALS (14 sets, daily range): BP systolic 118–178; BP diastolic 57–74; PULSE 60–82; RESP 12–20; TEMP 36.3–36.9; O2SAT 92–98; BMI 37.7
[2025-02-21] MEDS: bumetanide 0.25 mg/mL SDV 4 mL 0.5 MG IVP (05:14)
[2025-02-21 05:55] LABS: Hematocrit 29.7 % (37-53); Hemoglobin 9.20 g/dL (11.27-16.99); Mean Corpuscular HGB Conc 31.0 g/dL (30-55); Mean Corpuscular Hemoglobin 26.1 pg (27-33); Mean Corpuscular Volume 84.1 fl (82-101); Nucleated Red Blood Cells % 0 %; Platelet Count 324 10^3/cmm (157-399); Red Blood Count 3.53 10^6/uL (3.85-5.65); White Blood Count 8.27 10^3/uL (3.29-11.43)
[2025-02-21 06:17] LABS: Alanine Aminotransferase 9 U/L (0-41); Albumin Level 3.2 g/dL (3.5-5.2); Alkaline Phosphatase 67 U/L (40-130); Anion Gap 19.8 (5-19); Aspartate Amino Transferase 13 U/L (0-40); Blood Urea Nitrogen 74 mg/dL (8-23); Calcium 8.5 mg/dL (8.5-10.5); Carbon Dioxide 22 mmol/L (22-29); Chloride 97 mmol/L (98-107); Globulin 3.3 g/dL (1.3-4.6); Glucose 118 mg/dL (65-115); Magnesium 2.8 mg/dL (1.7-2.3); Osmolality Calculated 303 mOsm/kg (285-295); Potassium 3.8 mmol/L (3.5-5.1); Sodium 135 mmol/L (136-145); Total Protein 6.5 g/dL (6.6-8.7)
--- NOTE | 2025-02-21 07:57 | P.ANESASSM_ITS ---
Pre-Anesthetic Assessment Height/Weight: Height 5 ft 9 in Weight 255 lb 6.4 oz Temp Pulse Resp BP Pulse Ox O2 Del Method O2 Flow Rate 98.1 F 69 16 158/70 96 Room Air 2 02/20/25 23:20 02/21/25 07:39 02/21/25 07:39 02/21/25 03:27 02/21/25 07:39 02/21/25 07:39 02/16/25 09:53 Preop Diagnosis: CKD Operation Date: 02/21/25 08:15 Proposed Procedures p Insertion Central Venous Access Device Dialysis Catheter Insertion(Not Applicable) - Damian Anne MD Was Beta Driss taken within 24 hours: N/A Was Clonidine taken within 24 hours: N/A Social No alcohol and No tobacco Exam alert, oriented x 3, clear to auscultation bilaterally and regular rate & rhythm Airway Submandibular: within normal limits Cervical ROM: within normal limits Mallampati: Class III Anesthetic Plan ASA status: 4 Anesthesia: General Other: No prior issues with anesthesia NPO since yesterday evening History of hypertension on amlodipine and metoprolol preop BP 154/75 Stress test showed old IA versus scarring. And as per cardiology perspective he is stable for discharge and to follow-up with cardiology as outpatient. IDDM, preop BS 118 CKD stage IV Labs from 02/21/2025 reviewed acceptable for procedure, CR 6.5 today Echo performed earlier this month showing EF of 55 to 60% with hypokinesis of the apical septal and apical inferior wall segments Plan for MAC anesthesia with local via surgeon Medications/Allergies Home Medications ?Medication ?Instructions ?Recorded ?Confirmed ?Last Taken ?Type prosthetic leg sleeve #2 ea 11/11/23 02/16/25 Unkn own Rx prosthetic supplies #1 ea 11/11/23 02/16/25 Unkn own Rx prosthetic sleeve and liners #1 ea 11/17/24 02/16/25 Unknown Rx metoprolol tartrate 25 mg tablet 25 mg PO BID 12/05/24 02/16/25 02/15/25 17:00 History amlodipine 10 mg tablet 10 mg PO DAILY 30 days #30 t abs 12/09/24 02/16/25 02/15/25 08:00 Rx flash glucose sensor (FreeStyle #2 kits 02/05/2502/16 Unknown Rx Julius 2 Sensor kit) furosemide 40 mg tablet (Lasix) 40 mg PO QAM #90 tabs 02/05/25 02/16/25 02/15/25 08:00 Rx insulin glargine 100 unit/mL (3 See Rx Instructions .R oute 02/14/25 02/16/25 02/15/25 08:00 Rx mL) subcutaneous pen (Lantus .COMPLEX #15 mL Solostar U-100 Insulin) insulin regular hum U-500 conc 500 See Rx Instructions .Route 02/14/25 02/16/25 02/15/25 08:00 Rx unit/mL(3 mL) subcut pen (Humulin .COMPLEX #12 mL R U-500 (Conc) Insulin Kwikpen) hydralazine 50 mg tablet 50 mg PO BID 02/16/2502/15/25 17:00 History Allergies Allergy/AdvReac Type Severity Reaction Status Date / Time No Known Allergies Allergy Verified 12/28/24 10:29 Current Medications Generic Name Dose Route Start Last Admin Trade Name Vasquezq PRN Reason Stop Dose Admin Amlodipine Besylate 10 mg 02/16/25 05:00 02/21/25 05:13 Amlodipine 10 Mg Tablet PO 10 mg DAILY MANUELA Administration Aspirin 81 mg 02/17/25 05:00 02/21/25 05:13 Aspirin 81 Mg Ec Tablet PO 81 mg DAILY MANUELA Administration Budesonide 0.5 mg 02/16/25 09:15 02/21/25 07:39 Budesonide 0.5 Mg/2 Ml Neb INHALATION Not Given BID.RESPIRATORY MANUELA Bumetanide 0.5 mg 02/20/25 05:00 02/21/25 05:14 Bumetanide 0.25 Mg/Ml Sdv 4 Ml IVP 0.5 mg Q12H MANUELA Administration Docusate Sodium 100 mg 02/16/25 05:00 02/21/25 05:16 Docusate Sodium 100 Mg Capsule PO 100 mg BID MANUELA Administration Heparin Sodium (Porcine) 5,000 unit 02/19/25 21:00 02/20/25 21:07 Heparin 5,000 Unit/Ml Inj 1 Ml SUBCUT 5,000 unit Q12H MANUELA Administration Hydralazine HCl 75 mg 02/18/25 13:00 02/21/25 05:13 Hydralazine 50 Mg Tablet PO 75 mg TID MANUELA Administration Insulin Glargine 20 unit 02/16/25 18:00 02/20/25 17:36 Insulin Glargine 100 Units/1 Ml SUBCUT 20 unit BIDWM MANUELA Administration Insulin Human Lispro 0 unit 02/16/25 12:00 02/20/25 21:08 Insulin Lispro 100 Unit/1 Ml SUBCUT 8 unit WM&BEDTIME MANUELA Administration Protocol Metoprolol Tartrate 50 mg 02/16/25 03:15 02/21/25 05:13 Metoprolol Tartrate 25 Mg Tablet PO 50 mg BID MANUELA Administration Nitroglycerin 1 inch 02/16/25 05:30 02/21/25 05:17 Nitroglycerin 1 Gm/Inch Oint Pkt TOPICAL Not Given Q6H [facility] Pantoprazole Sodium 40 mg 02/16/25 03:15 02/21/25 05:[address] 40 Mg Tablet PO 40 mg DAILY MANUELA Administration PFSH Anesthesia Medical History (Updated 02/19/25 @ 20:44 by Lorenza Hendrix MD) Migraine Kidney disease with fluid retention Acute hypoxic respiratory failure Pulmonary edema Hypertension Diabetes type 2, uncontrolled Hyponatremia Acute kidney injury superimposed on chronic kidney disease Acute decompensated heart failure Fluid overload Hyperlipidemia Poorly fitting prosthesis for below knee amputation (BKA) Contrast-induced nephropathy Hypertensive crisis Need for dental care Intractable vomiting Acute on chronic kidney failure Hypertensive urgency Hyperosmolar hyperglycemic state (HHS) DKA (diabetic ketoacidosis) Prosthesis fitting Hypokalemia Hypertensive urgency Microscopic hematuria Nausea and vomiting Diabetes mellitus with gastroparesis Osteomyelitis Contrast dye induced nephropathy Acute renal failure superimposed on stage 3b chronic kidney disease Peripheral arterial disease Acquired rearfoot varus Diabetic peripheral neuropathy associated with type 2 diabetes mellitus 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 Chronic renal impairment Hyperlipidemia associated with type 2 diabetes mellitus Statin intolerance Foot abscess, left Diabetic foot infection Essential hypertension Hyperlipidemia, mixed Surgical History S/P hemodialysis catheter insertion S/P BKA (below knee amputation) (04/05/21) History of partial amputation of toe of right foot History of amputation of lesser toe Amputated toe of right foot secondary to osteomyelitis 4th right toe Family History Father Diabetes Mother Diabetes Other Hypertension Social History (Updated 02/16/25 @ 03:46 by Martir Finnegan MD) Smoking and tobacco/nicotine status: never used tobacco/nicotine Second hand smoke exposure: No Alcohol intake: former Substance/Drug Use: never Additional social history: He wants full code as discussed with Martir Finnegan MD on 02/16/2025 Adopted: No Caregiver/support person: No Lives independently: Yes Household members: spouse Housing: House Marital status: service: No Current occupational status: employed 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 Pets and animals: Yes Do you think of yourself as: Straight/Heterosexual Current gender identity: Male Data Anesthesia 02/21/25 05:14 02/21/25 05:14 Short CBC 02/19/25 02/20/25 02/21/25 Range/Units 04:00 07:48 05:14 WBC 8.97 8.82 8.27 (3.29-11.43) 10^3/uL Hgb 9.50 L 9.30 L 9.20 L (11.27-16.99) g/dL Hct 29.7 L 29.5 L 29.7 L (37-53) % MCV 83.4 82.9 84.1 (82-101) fl Plt Count 336 339 324 (157-399) 10^3/cmm Neut % (Auto) 72.8 69.8 72.0 % Neut # (Auto) 6.52 6.16 5.95 (1.8-7.7) 10^3/uL BMP 02/19/25 02/20/25 02/21/25 04:00 07:48 05:14 Sodium 134 L 132 L 135 L Potassium 3.5 4.3 3.8 Chloride 94 L 94 L 97 L Carbon Dioxide 21 L 21 L 22 BUN 78 H 79 H 74 H Creatinine 6.6 H* 6.6 H* 6.5 H* Glucose 127 H 198 H 118 H Calcium 8.5 8.5 8.5 Cardiac Enzymes 02/19/25 Range/Units 15:23 Creatine Kinase 99 (39-308) U/L Liver Function 02/19/25 02/20/25 02/21/25 Range/Units 04:00 07:48 05:14 Total Bilirubin 0.3 0.3 0.3 (0.15-1.2) mg/dL AST 11 11 13 (0-40) U/L ALT 8 8 9 (0-41) U/L Alkaline Phosphatase 67 68 67 (40-130) U/L Albumin 3.2 L 3.2 L 3.2 L (3.5-5.2) g/dL Urine 02/19/25 Range/Units 17:47 Urine Color Yellow (Yellow) Urine Appearance Clear (CLEAR) Urine pH 6.0 (5-7) Ur Specific Gorman 1.012 (1.005-1.030) Urine Protein 3+ A (Negative) Urine Glucose (UA) 1+ H (Normal) Urine Ketones Negative (Negative) Urine Nitrate Negative (Negative) Urine Bilirubin Negative (Negative) Ur Leukocyte Esterase Negative (Negative) Urine RBC 0-2 (0-2) /hpf Urine WBC 0-5 (0-5) /hpf Coags 02/19/25 02/19/25 02/19/25 10:45 17:44 23:52 APTT 46.9 H 58.4 H 39.4 H Cardiac Studies: 2 Echocardiogram 02/16/25 Sestamibi Stress Test (Cardiology) 02/16
--- NOTE | 2025-02-21 08:02 | P.PN_ITS ---
Subjective 2 Subjective: No acute events overnight Vitals/I&O/Wt Last Vital Signs Temp 98.1 F 02/20/25 23:20 Pulse 69 02/21/25 07:39 Resp 16 02/21/25 07:39 BP 158/70 02/21/25 03:27 Pulse Ox 96 02/21/25 07:39 O2 Del Method Room Air 02/21/25 07:39 O2 Flow Rate 2 02/16/25 09:53 02/20/25 02/21/25 02/21/25 22:59 06:59 14:59 Intake Total 480 / 840 Output Total 700 / 1300 600 / 1900 400 / 400 Balance -220 / -460 -600 / -1060 -400 / -400 Weight last 48 hrs Weight 255 lb 6.4 oz Weight 255 lb 4.725 oz Weight 255 lb 4.725 oz Physical Exam 2 Narrative: Chest: Unlabored breathing room air. No lymphadenopathy. Heart: Regular rate and rhythm. Abdomen: Soft, nontender, nondistended. No masses or lymphadenopathy. Data 02/21/25 05:14 02/21/25 05:14 A&P Assessment and plan 1. CKD (chronic kidney disease): Plan: 60-year-old male history of chronic kidney disease. Surgery was consulted for tunneled dialysis catheter insertion. I had an extensive discussion with the patient and answered all questions. I have discussed non operative/non procedural options and the patient still decides to proceed. Discussed risks and benefits of tunneled dialysis catheter insertion and patient decides to proceed. Patient understands the risks include bleeding, infection, massive bleeding and , stroke, arterial injury, pneumothorax, hemothorax and patient still agrees to proceed. PDMP PDMP Reviewed: Not Reviewed Attestations 2 Medical Necessity Statement*: N/A Coding Level of Care Code 38889 Diagnoses CKD (chronic kidney disease) N18.9
--- NOTE | 2025-02-21 08:03 | SC_ITS ---
WS: [id number] C-arm fluoroscopy for dialysis catheter insertion, 02/21/2025 Clinical Data: CENTRAL LINE INSERTION Comparison: C-arm fluoroscopy views, 04/15/2021 Findings: Dr. Anne inserted a dialysis catheter into the right internal jugular vein. SC/C-arm FL for CVA [id number] Impression: Insertion of right dialysis catheter into the right internal jugular vein.
--- NOTE | 2025-02-21 08:20 | SUR.PREOP ---
TRANSFERRED PT TO OPS. IV IN LEFT AC FLUSHED WITH SALINE FLUSH. STERILE DRESSING APPLIED TO WOUND ON RIGHT FOOT. PT EVALUATED BY DOCTOR IAIN. PT DENIES ANY PAIN OR DYSPNEA.
[2025-02-21] MEDS: ceFAZolin 2,000 mg SDV 2000 MG IVP (09:10)
[2025-02-21] MEDS: BUPivacaine 0.25% INJ 10 mL INJECTION (09:18)
[2025-02-21] MEDS: lidocaine-epi 1% PF 1:200,000 30 mL SDV INJECTION (09:18)
[2025-02-21] MEDS: heparin, porcine 1,000 unit/mL INJ 10 mL 10000 UNIT IRRIGATION (09:18)
--- NOTE | 2025-02-21 09:49 | P.OP_ITS ---
Operative Report Date of procedure: February 21, 2025 Pre-op diagnosis: Chronic kidney disease Post-op diagnosis: same Post-op findings: Tip of catheter at atriocaval junction confirmed with intraoperative fluoroscopy Procedure done: Tunneled dialysis catheter insertion Implants: Tunneled dialysis catheter 23 cm Pathology: none sent Surgeon: Damian Anne MD Cashier Receptionist: N/A Anesthesia: MAC Estimated blood loss (mL): 20 Complications: N/A Findings: Tip of catheter at atriocaval junction confirmed with intraoperative fluoroscopy. Catheter fully functional at end of case. Able to draw and flush easily. Hep-locked. Condition: stable Disposition: floor Brief History: 60-year-old male with chronic kidney disease whom surgery was consulted to place a tunneled dialysis catheter. Discussed risk and benefits and patient agreed to proceed with tunneled dialysis catheter placement. Procedure: The patient was taken to the operating room and placed under MAC after IV antibiotic had been administered. The chest and neck were prepped and draped in a sterile manner bilaterally. An ultrasound of the right internal jugular vein revealed patent flow, no thrombus identified. Using introducer needle the internal jugular vein on the right side was accessed and guidewire passed into the right atrium under fluoroscopy. Under fluoroscopy the location for the dialysis catheter was marked. Using 15 blade a skin incision was extended at the vein access site as well as the previously marked location on the right chest wall. The dialysis catheter was attached to the tunneler and passed subcutaneously, exiting at the venous access site. Serial dilators were passed over the guidewire under fluoroscopy. Finally the dilator peel-away sheath was passed over the guidewire and the inner dilator and guidewire was removed and the dialysis catheter was introduced into the right internal jugular vein as the peel-away sheath was removed. The tip of the catheter was noted to be in the atriocaval junction. Both ports of the catheter carmen blood and flushed easily. The catheter was sutured to the skin using 3-0 Prolene and the venous access site was closed with 4-0 Monocryl and Dermabond. A total of 5 mL of 1:10,000 heparin was injected into the 2 ports under dialysis catheter. Fluoroscopic guidance and interpretation for passage of guidewire and dilator and placement of catheter in the atriocaval junction. Catheter fully functional at end of case.
[2025-02-21 11:05] LABS: Hepatitis B Surface Antigen Non-Reactive (Nonreactive)
--- NOTE | 2025-02-21 11:11 | PC.SOCIAL ---
IMM Updated Updated pt on IMM. No questions voiced. Provided pt a copy. Initialed, dated, & timed copy in chart.
--- NOTE | 2025-02-21 13:59 | PM.PN ---
Subjective Subjective: no new c/o Medications: Reviewed: Yes Vitals/I&O/Wt Last Vital Signs Temp 98.5 F 02/21/25 11:09 Pulse 62 02/21/25 11:09 Resp 13 02/21/25 11:09 BP 151/72 02/21/25 11:09 Pulse Ox 98 02/21/25 11:09 O2 Del Method Room Air 02/21/25 10:15 O2 Flow Rate 2 02/16/25 09:53 02/20/25 02/21/25 02/21/25 22:59 06:59 14:59 Intake Total 480 / 840 285 / 285 Output Total 700 / 1300 600 / 1900 810 / 810 Balance -220 / -460 -600 / -1060 -525 / -525 Weight last 48 hrs Weight 115.847 kg Weight 115.8 kg Weight 115.8 kg Physical Exam Narrative: Patient sitting up in bed comfortable on room air. Vital signs noted. HEENT normocephalic/atraumatic. Neck is supple no JVP. Lungs have good air movement heart is regular positive S1-S2 Abdomen is soft positive bowel sound nontender. Extremities right leg edema left leg below-knee amputation. Neuro awake alert oriented x 3 no asterixis Data 02/21/25 05:14 02/21/25 05:14 A&P Assessment and plan 1. Stage 5 chronic kidney disease not on chronic dialysis: 60-year-old man history of heart failure preserved EF, peripheral vascular disease, morbid obesity, diabetes, hypertension. Patient has history of CKD stage V followed by nephrology-Dr. Haro as outpatient. Please note patient has had acute kidney injury requiring dialysis in the past. 1. CKD stage V: Etiology CKD due to obesity hypertension diabetes and cardiorenal syndrome. Also has proteinuria with approximately 3 g of UPCR from the past. His field sales executive is preparing him for starting dialysis via tunneled catheter as outpatient and transition to AV graft in the near future. Patient has declined peritoneal dialysis and opted for hemodialysis. - His GFR is below 10 and patient has some uremic symptoms as well as recurrent volume overload in the setting of underlying diastolic CHF. Recommended HD initiation while in the hospital and patient agreed. s/p tunneled catheter placement and initiate HD today , HD # 1 today 2. Anemia- iron saturation of 15%, check ferritin and can give a dose of Epogen 3.. Hyponatremia likely from volume overload and from renal insufficiency 5. Metabolic acidosis improving. 6. Hypokalemia , resolved 7. Diabetic control per PMD 8. Check phosphorus and likely add a binder Patient evaluated using audiovisual cart. Time spent 40 minutes. PDMP PDMP Reviewed: Not Reviewed Attestations Medical Necessity Statement*: per [facility] Coding Level of Care Code Acute Code for Chg Fwd Diagnoses Stage 5 chronic kidney disease not on chronic dialysis N18.5 Chronic kidney disease stage: stage 5 (GFR < 15), not on chronic dialysis
--- NOTE | 2025-02-21 15:00 | PC.HD ---
Patient s/p PermaCath placement. Upon initial assessment, unable to draw from arterial port. Venous port carmen and flushed with no issues. Therefore, HD lines affixed in reverse configuration and treatment commenced without issue.
[2025-02-21] MEDS: insulin glargine 100 units/1 mL 20 UNIT SUBCUT (16:58)
[2025-02-21] MEDS: heparin 5,000 unit/mL INJ 1 mL 5000 UNIT SUBCUT (20:40)
--- NOTE | 2025-02-21 20:43 | PC.NURSE ---
nurse approved to go off dexcom for blood sugar.
--- NOTE | 2025-02-21 21:36 | PC.NURSE ---
Patients dexcom reading at 2100 was 239.
--- NOTE | 2025-02-21 21:43 | P.PN_ITS ---
Subjective 2 Subjective: Patient seen in the morning,. Status post right-sided tunneled PermCath insertion and hemodialysis Patient feeling much better, off oxygen, no respiratory distress and able to speak in full sentences Catheter area examined and no signs of hematoma emphysema or any tenderness. Vitals/I&O/Wt Last Vital Signs Temp 98.2 F 02/21/25 19:27 Pulse 76 02/21/25 19:27 Resp 20 H 02/21/25 19:27 BP 168/69 02/21/25 19:27 Pulse Ox 97 02/21/25 19:27 O2 Del Method Room Air 02/21/25 19:27 O2 Flow Rate 2 02/16/25 09:53 02/21/25 02/21/25 02/21/25 06:59 14:59 22:59 Intake Total 285 / 285 740 / 1025 Output Total 600 / 1900 810 / 810 2500 / 3310 Balance -600 / -1060 -525 / -525 -1760 / -2285 Weight last 48 hrs Weight 114.2 kg Weight 115.847 kg Weight 115.8 kg Weight 115.8 kg Physical Exam 2 Narrative: General: Alert and oriented, lying comfortably without any distress HEENT: Normocephalic, atraumatic, grossly unremarkable exam Cardio: normal rate rhythm, normal S1-S2 without any murmurs, rubs, or gallops and JVD normal Respiratory: Bilateral equal entry without any crackles or wheezing GI: Abdomen soft, nontender, nondistended, normoactive bowel sounds present all 4 quadrants, Neuro: intact cranial nerves motor and sensory and cerebellar/coordination function without any focal neurological deficit Behavior: Appropriate and cooperative Extremities: Adequate palpable pulses, pitting edema on the right leg relatively better than yesterday, left leg stump Data 02/21/25 05:14 02/21/25 05:14 A&P Assessment and plan 1. Atypical chest pain: Patient presented with chest pain and exertional dyspnea. Troponin elevated and was kept on heparin infusion, Stress test showed old VA versus scarring. And as per cardiology perspective he is stable for discharge and to follow-up with cardiology as outpatient. And later consideration for possible angiogram will be done. To continue medical therapy with aspirin, statin, beta-shawna. Discontinue heparin Nitroglycerin for chest pain VTE prophylaxis: Heparin 2. CKD stage 4 secondary to hypertension: Patient has apparently been evaluated by assistant construction superintendent in [place] and is prepping for dialysis, there is no specific date of PermCath insertion or dialysis Nephrology on board, status post PermCath insertion on the right chest on 02/21/2025 and status post hemodialysis session Continue Bumex 0.5 mg every 12 hourly Continue to follow with the nephrology and further plan of hemodialysis 3. Uncontrolled type 2 diabetes mellitus with hyperglycemia: Carb consistent diet SSI Maintain normoglycemia and frequent glucose monitoring 4. Kidney disease with fluid retention: Patient having CKD stage V status post PermCath insertion on 02/21/2025 Monitor intake and output Renal parameters and electrolytes monitoring with correction accordingly Nephrology on board and follow the schedule of hemodialysis 5. History of left below knee amputation: Supportive care, no acute issues 6. Hypertension secondary to other renal disorders: Continue amlodipine 10 mg daily Metoprolol 50 mg twice daily Hydralazine 75 mg 3 times daily 7. Migraine: Adequate analgesia as per the pain scale Currently stable Plan: Plan: VTE: Heparin twice daily Diet: Renal diabetic nondialysis PDMP PDMP Reviewed: Not Reviewed Attestations 2 Medical Necessity Statement*: Patient will stay overnight following nephrology plan status post insertion of PermCath and hemodialysis today for further plan of care postdischarge for hemodialysis Time Spent in Patient Care: 16 - 35 minutes (>than 50% of time sp ent in counselling and/or direct pt care on unit) . Other Attestations: Patient condition has been discussed at length with the patient/family, I have independently reviewed the chart labs imaging/diagnostics/EKG. the goals of care and code status with the patient/family/NOK/legal wireless sales representative, and documented accordingly. I have reconciled the medications after confirmation/comorbidities/current clinical condition. The management has been done according to the current clinical condition with respect to patient goals of care and based on recommendations/guidelines. The patient/family has been informed about the current condition and further plan of care. Agreed with the plan of care and understood without any language barrier. Every effort was made to ensure accuracy of broadcast designer. Any obvious errors or omissions should be clarified with the author of the document. Coding Level of Care Code 47230 Diagnoses Atypical chest pain R07.89 CKD stage 4 secondary to hypertension I12.9; N18.4 Uncontrolled type 2 diabetes mellitus with hyperglycemia E11.65 Glycemic state: with hyperglycemia Kidney disease with fluid retention N28.9 History of left below knee amputation Z89.512 Hypertension secondary to other renal disorders I15.1 Hypertension type: secondary to other renal disorders Migraine G43.909
[2025-02-22] VITALS (8 sets, daily range): BP systolic 101–194; BP diastolic 60–93; PULSE 66–84; RESP 16–18; TEMP 36.6–37.1; O2SAT 96–98
[2025-02-22 05:28] LABS: Hematocrit 27.5 % (37-53); Hemoglobin 8.60 g/dL (11.27-16.99); Mean Corpuscular HGB Conc 31.3 g/dL (30-55); Mean Corpuscular Hemoglobin 26.0 pg (27-33); Mean Corpuscular Volume 83.1 fl (82-101); Nucleated Red Blood Cells % 0 %; Platelet Count 333 10^3/cmm (157-399); Red Blood Count 3.31 10^6/uL (3.85-5.65); White Blood Count 9.07 10^3/uL (3.29-11.43)
[2025-02-22 05:56] LABS: Alanine Aminotransferase 7 U/L (0-41); Albumin Level 3.2 g/dL (3.5-5.2); Alkaline Phosphatase 67 U/L (40-130); Anion Gap 17.8 (5-19); Aspartate Amino Transferase 12 U/L (0-40); Blood Urea Nitrogen 55 mg/dL (8-23); Calcium 8.4 mg/dL (8.5-10.5); Carbon Dioxide 23 mmol/L (22-29); Chloride 99 mmol/L (98-107); Globulin 3.3 g/dL (1.3-4.6); Glucose 161 mg/dL (65-115); Osmolality Calculated 301 mOsm/kg (285-295); Potassium 3.8 mmol/L (3.5-5.1); Sodium 136 mmol/L (136-145); Total Protein 6.5 g/dL (6.6-8.7)
--- NOTE | 2025-02-22 08:36 | P.PN_ITS ---
Subjective 2 Subjective: s/p HD yesterday Medications: Reviewed: Yes Vitals/I&O/Wt Last Vital Signs Temp 98.2 F 02/22/25 07:42 Pulse 67 02/22/25 07:42 Resp 17 02/22/25 07:42 BP 141/60 02/22/25 07:42 Pulse Ox 96 02/22/25 07:42 O2 Del Method Room Air 02/22/25 04:00 O2 Flow Rate 2 02/16/25 09:53 02/21/25 02/22/25 02/22/25 22:59 06:59 14:59 Intake Total 860 / 1145 360 / 1505 Output Total 2500 / 3310 400 / 3710 Balance -1640 / -2165 -40 / -2205 Weight last 48 hrs Weight 112.5 kg Weight 114.2 kg Weight 115.847 kg Physical Exam 2 Narrative: Patient sitting up in bed comfortable on room air. Vital signs noted. HEENT normocephalic/atraumatic. Neck is supple no JVP. Lungs have good air movement heart is regular positive S1-S2 Abdomen is soft positive bowel sound nontender. Extremities right leg edema left leg below-knee amputation. Neuro awake alert oriented x 3 no asterixis Data 02/22/25 04:45 02/22/25 04:45 A&P Assessment and plan 1. Stage 5 chronic kidney disease not on chronic dialysis: 60-year-old man history of heart failure preserved EF, peripheral vascular disease, morbid obesity, diabetes, hypertension. Patient has history of CKD stage V followed by nephrology-Dr. Haro as outpatient. Please note patient has had acute kidney injury requiring dialysis in the past. 1. CKD stage V: Etiology CKD due to obesity hypertension diabetes and cardiorenal syndrome. Also has proteinuria with approximately 3 g of UPCR from the past. His manager employee benefits is preparing him for starting dialysis via tunneled catheter as outpatient and transition to AV graft in the near future. Patient has declined peritoneal dialysis and opted for hemodialysis. - His GFR is below 10 and patient has some uremic symptoms as well as recurrent volume overload in the setting of underlying diastolic CHF. Recommended HD initiation while in the hospital and patient agreed. s/p tunneled catheter placement and initiated HD , hd # 2 today Culinary Arts Teacher to set up out pt hD 2. Anemia- iron saturation of 15%, check ferritin and can give a dose of Epogen 3.. Hyponatremia likely from volume overload and from renal insufficiency 5. Metabolic acidosis improving. 6. Hypokalemia , resolved 7. Diabetic control per PMD 8. Check phosphorus and likely add a binder Patient evaluated using audiovisual cart. Time spent 40 minutes. PDMP PDMP Reviewed: Not Reviewed Attestations 2 Medical Necessity Statement*: PER MEDICINE Coding Level of Care Code Acute Code for Chg Fwd Diagnoses Stage 5 chronic kidney disease not on chronic dialysis N18.5 Chronic kidney disease stage: stage 5 (GFR < 15), not on chronic dialysis
[2025-02-22] MEDS: heparin 5,000 unit/mL INJ 1 mL 5000 UNIT SUBCUT ×2 (09:07→20:31)
--- NOTE | 2025-02-22 12:59 | PM.PN ---
Subjective Subjective: Patient seen in the morning,. Status post right-sided tunneled PermCath insertion and hemodialysis on 02/22/2028, patient feeling better, off oxygen, no new concerns in 24 hours Patient for hemodialysis today, Catheter site clean no signs of hematoma or infection Vitals/I&O/Wt Last Vital Signs Temp 98.8 F 02/22/25 11:32 Pulse 74 02/22/25 11:32 Resp 16 02/22/25 11:32 BP 194/84 02/22/25 11:32 Pulse Ox 97 02/22/25 09:23 O2 Del Method Room Air 02/22/25 09:23 O2 Flow Rate 2 02/16/25 09:53 02/21/25 02/22/25 02/22/25 22:59 06:59 14:59 Intake Total 860 / 1145 360 / 1505 480 / 480 Output Total 2500 / 3310 400 / 3710 Balance -1640 / -2165 -40 / -2205 480 / 480 Weight last 48 hrs Weight 112.5 kg Weight 114.2 kg Weight 115.847 kg Physical Exam Narrative: General: Alert and oriented, lying comfortably without any distress, with PermCath catheter on the right chest without any signs of hematoma or emphysema or any infection HEENT: Normocephalic, atraumatic, grossly unremarkable exam Cardio: normal rate rhythm, normal S1-S2 without any murmurs, rubs, or gallops and JVD normal Respiratory: Bilateral equal entry without any crackles or wheezing GI: Abdomen soft, nontender, nondistended, normoactive bowel sounds present all 4 quadrants, Neuro: intact cranial nerves motor and sensory and cerebellar/coordination function without any focal neurological deficit Behavior: Appropriate and cooperative Extremities: Adequate palpable pulses, pitting edema on the right leg relatively better than yesterday, left leg stump Data 02/22/25 04:45 02/22/25 04:45 A&P Assessment and plan 1. Atypical chest pain: Patient presented with chest pain and exertional dyspnea. Troponin elevated and was kept on heparin infusion, and later discontinued after cardiology workup and recommendation Stress test showed old IA versus scarring. And as per cardiology perspective he is stable for discharge and to follow-up with cardiology as outpatient. And later consideration for possible angiogram will be done. To continue medical therapy with aspirin, statin, beta-shawna. Nitroglycerin for chest pain VTE prophylaxis: Heparin 2. CKD stage 4 secondary to hypertension: Patient has apparently been evaluated by avionics systems technician in [place] and is prepping for dialysis, there is no specific date of PermCath insertion or dialysis Nephrology on board, status post PermCath insertion on the right chest on 02/21/2025 and status post hemodialysis session Hemodialysis today And for likely discharge tomorrow He was initiated on Bumex, and to discontinue as per nephrology recommendation Continue to follow with the nephrology and further plan of hemodialysis 3. Uncontrolled type 2 diabetes mellitus with hyperglycemia: Carb consistent diet SSI Maintain normoglycemia and frequent glucose monitoring 4. Kidney disease with fluid retention: Patient having end-stage renal disease status post PermCath insertion on 02/21/2025 Tolerating hemodialysis at the moment Monitor intake and output Renal parameters and electrolytes monitoring with correction accordingly Nephrology on board and follow the schedule of hemodialysis 5. History of left below knee amputation: Supportive care, no acute issues 6. Hypertension secondary to other renal disorders: Continue amlodipine 10 mg daily Metoprolol 50 mg twice daily Hydralazine 75 mg 3 times daily 7. Migraine: Adequate analgesia as per the pain scale Currently stable Plan: Plan: VTE: Heparin twice daily Diet: Renal diabetic diet PDMP PDMP Reviewed: Not Reviewed Attestations Medical Necessity Statement*: Patient will stay overnight for further hemodialysis session and later to be discharged after clinical assessment and nephro recommendations Time Spent in Patient Care: 16 - 35 minutes (>than 50% of time spent in counselling and/or direct pt care on unit). Other Attestations: Patient condition has been discussed at length with the patient/family, I have independently reviewed the chart labs imaging/diagnostics/EKG. the goals of care and code status with the patient/family/NOK/legal players club representative, and documented accordingly. I have reconciled the medications after confirmation/comorbidities/current clinical condition. The management has been done according to the current clinical condition with respect to patient goals of care and based on recommendations/guidelines. The patient/family has been informed about the current condition and further plan of care. Agreed with the plan of care and understood without any language barrier. Every effort was made to ensure accuracy of dough molder hand. Any obvious errors or omissions should be clarified with the author of the document. Coding Level of Care Code 01116 Diagnoses Atypical chest pain R07.89 CKD stage 4 secondary to hypertension I12.9; N18.4 Uncontrolled type 2 diabetes mellitus with hyperglycemia E11.65 Glycemic state: with hyperglycemia Kidney disease with fluid retention N28.9 History of left below knee amputation Z89.512 Hypertension secondary to other renal disorders I15.1 Hypertension type: secondary to other renal disorders Migraine G43.909
--- NOTE | 2025-02-22 15:31 | P.PN_ITS ---
Subjective 2 Subjective: No acute events overnight Vitals/I&O/Wt Last Vital Signs Temp 98.4 F 02/22/25 13:55 Pulse 66 02/22/25 13:55 Resp 16 02/22/25 13:55 BP 160/80 02/22/25 13:55 Pulse Ox 97 02/22/25 09:23 O2 Del Method Room Air 02/22/25 09:23 O2 Flow Rate 2 02/16/25 09:53 02/22/25 02/22/25 02/22/25 06:59 14:59 22:59 Intake Total 360 / 1505 980 / 980 Output Total 400 / 3710 3500 / 3500 Balance -40 / -2205 -2520 / -2520 Weight last 48 hrs Weight 243 lb 9.773 oz Weight 248 lb 0.321 oz Weight 251 lb 12.286 oz Weight 255 lb 6.4 oz Physical Exam 2 Narrative: Chest: Unlabored breathing room air. Tunneled dialysis catheter functional Heart: Regular rate and rhythm. Abdomen: Soft, nontender, nondistended. No masses or lymphadenopathy. Data 02/23/25 04:18 02/23/25 04:18 A&P Assessment and plan 1. Acute on chronic renal insufficiency: Plan: 60-year-old male status post tunneled dialysis catheter insertion. Catheter functional. Rest of care per hospitalist. PDMP PDMP Reviewed: Not Reviewed Attestations 2 Medical Necessity Statement*: N/A Coding Level of Care Code 27500 Diagnoses Acute on chronic renal insufficiency N28.9; N18.9
--- NOTE | 2025-02-22 16:26 | PC.NURSE ---
dexcom reading at 1626 is 190
[2025-02-22] MEDS: insulin glargine 100 units/1 mL 20 UNIT SUBCUT (16:49)
[2025-02-23] VITALS: BP 179/80; PULSE 75; RESP 15; O2SAT 97
[2025-02-23 04:00] VITALS: BP 159/90; PULSE 65; RESP 20; TEMP 36.8; O2SAT 98
[2025-02-23 04:47] LABS: Hematocrit 28.8 % (37-53); Hemoglobin 8.90 g/dL (11.27-16.99); Mean Corpuscular HGB Conc 30.9 g/dL (30-55); Mean Corpuscular Hemoglobin 25.8 pg (27-33); Mean Corpuscular Volume 83.5 fl (82-101); Nucleated Red Blood Cells % 0 %; Platelet Count 318 10^3/cmm (157-399); Red Blood Count 3.45 10^6/uL (3.85-5.65); White Blood Count 8.43 10^3/uL (3.29-11.43)
[2025-02-23 05:15] LABS: Alanine Aminotransferase < 5 U/L (0-41); Albumin Level 3.0 g/dL (3.5-5.2); Alkaline Phosphatase 66 U/L (40-130); Anion Gap 16.9 (5-19); Aspartate Amino Transferase 10 U/L (0-40); Blood Urea Nitrogen 45 mg/dL (8-23); Calcium 8.5 mg/dL (8.5-10.5); Carbon Dioxide 25 mmol/L (22-29); Chloride 98 mmol/L (98-107); Globulin 3.6 g/dL (1.3-4.6); Glucose 184 mg/dL (65-115); Osmolality Calculated 298 mOsm/kg (285-295); Potassium 3.9 mmol/L (3.5-5.1); Sodium 136 mmol/L (136-145); Total Protein 6.6 g/dL (6.6-8.7)
[2025-02-23 08:00] VITALS: BP 146/64; PULSE 73; RESP 18; TEMP 36.7
--- NOTE | 2025-02-23 08:25 | PC.SOCIAL ---
IMM Updated Updated pt on IMM. No questions voiced. Provided pt a copy. Initialed, dated, & timed copy in chart.
[2025-02-23] MEDS: heparin 5,000 unit/mL INJ 1 mL 5000 UNIT SUBCUT (09:03)
[2025-02-23] MEDS: insulin glargine 100 units/1 mL 20 UNIT SUBCUT (09:04)
--- NOTE | 2025-02-23 12:07 | PM.PN ---
Subjective Subjective: getting HD Medications: Reviewed: Yes Vitals/I&O/Wt Last Vital Signs Temp 98.1 F 02/23/25 08:00 Pulse 73 02/23/25 08:00 Resp 18 02/23/25 08:00 BP 146/64 02/23/25 08:00 Pulse Ox 98 02/23/25 04:00 O2 Del Method Room Air 02/23/25 04:00 O2 Flow Rate 2 02/16/25 09:53 02/22/25 02/23/25 02/23/25 22:59 06:59 14:59 Intake Total 360 / 1340 360 / 1700 480 / 480 Output Total 400 / 3900 200 / 200 Balance 360 / -2160 -40 / -2200 280 / 280 Weight last 48 hrs Weight 110.4 kg Weight 110.5 kg Weight 112.5 kg Weight 114.2 kg Physical Exam Narrative: Patient sitting up in bed comfortable on room air. Vital signs noted. HEENT normocephalic/atraumatic. Neck is supple no JVP. Lungs have good air movement heart is regular positive S1-S2 Abdomen is soft positive bowel sound nontender. Extremities right leg edema left leg below-knee amputation. Neuro awake alert oriented x 3 no asterixis Data 02/23/25 04:18 02/23/25 04:18 A&P Assessment and plan 1. Stage 5 chronic kidney disease not on chronic dialysis: 60-year-old man history of heart failure preserved EF, peripheral vascular disease, morbid obesity, diabetes, hypertension. Patient has history of CKD stage V followed by nephrology-Dr. Haro as outpatient. Please note patient has had acute kidney injury requiring dialysis in the past. 1. CKD stage V: Etiology CKD due to obesity hypertension diabetes and cardiorenal syndrome. Also has proteinuria with approximately 3 g of UPCR from the past. His java integration developer is preparing him for starting dialysis via tunneled catheter as outpatient and transition to AV graft in the near future. Patient has declined peritoneal dialysis and opted for hemodialysis. - His GFR is below 10 and patient has some uremic symptoms as well as recurrent volume overload in the setting of underlying diastolic CHF. Recommended HD initiation while in the hospital and patient agreed. s/p tunneled catheter placement and initiated HD , hd # 3 today Supervisor Last Model Department to set up out pt hD 2. Anemia- iron saturation of 15%, check ferritin and can give a dose of Epogen 3.. Hyponatremia likely from volume overload and from renal insufficiency 5. Metabolic acidosis improving. 6. Hypokalemia , resolved 7. Diabetic control per PMD 8. Check phosphorus and likely add a binder Patient evaluated using audiovisual cart. Time spent 40 minutes. PDMP PDMP Reviewed: Not Reviewed Attestations Medical Necessity Statement*: per medicine Coding Level of Care Code Acute Code for Chg Fwd Diagnoses Stage 5 chronic kidney disease not on chronic dialysis N18.5 Chronic kidney disease stage: stage 5 (GFR < 15), not on chronic dialysis
--- NOTE | 2025-02-23 13:14 | P.PN_ITS ---
Subjective 2 Subjective: No acute events overnight Vitals/I&O/Wt Last Vital Signs Temp 98.1 F 02/23/25 08:00 Pulse 73 02/23/25 08:00 Resp 18 02/23/25 08:00 BP 146/64 02/23/25 08:00 Pulse Ox 98 02/23/25 04:00 O2 Del Method Room Air 02/23/25 04:00 O2 Flow Rate 2 02/16/25 09:53 02/22/25 02/23/25 02/23/25 22:59 06:59 14:59 Intake Total 360 / 1340 360 / 1700 480 / 480 Output Total 400 / 3900 200 / 200 Balance 360 / -2160 -40 / -2200 280 / 280 Weight last 48 hrs Weight 243 lb 6.245 oz Weight 243 lb 9.773 oz Weight 248 lb 0.321 oz Weight 251 lb 12.286 oz Physical Exam 2 Narrative: Chest: Unlabored breathing room air. Tunneled dialysis catheter functional Heart: Regular rate and rhythm. Abdomen: Soft, nontender, nondistended. No masses or lymphadenopathy. Data 02/23/25 04:18 02/23/25 04:18 A&P Assessment and plan 1. CKD (chronic kidney disease): Plan: 60-year-old male status post tunneled dialysis catheter. Tunneled dialysis catheter functional. Rest of care per hospitalist. PDMP PDMP Reviewed: Not Reviewed Attestations 2 Medical Necessity Statement*: N/A Coding Level of Care Code 98947 Diagnoses CKD (chronic kidney disease) N18.9
[2025-02-23] MEDS: heparin, porcine 1,000 unit/mL INJ 10 mL 10000 UNIT INTRACATH (14:46)
[2025-02-23] MEDS: heparin, porcine 1,000 unit/mL INJ 10 mL 1000 UNIT IV (14:48)
[2025-02-23 14:50] VITALS: BP 166/77; PULSE 72; RESP 19; TEMP 36.4
[2025-02-23 15:34] LABS: Vit D 1,25 (Oh)2, Total <8 pg/mL (18-72); Vit D2 1,25 (Oh)2 <8 pg/mL; Vit D3 1,25 (Oh)2 <8 pg/mL
[2025-02-23 15:39] VITALS: BP 153/78; BP 163/75; PULSE 66; PULSE 67; RESP 18; TEMP 36.9
[2025-02-23 16:07] VITALS: BP 163/75; PULSE 66; RESP 18; TEMP 36.9; O2SAT 98
--- NOTE | 2025-02-23 21:40 | PM.DCS ---
Discharge Providers Date of Admission: 02/16/25 00:57 Date of Discharge: February 23, 2025 Attending Provider at Admission: Martir Finnegan MD Attending Provider at Discharge: Lorenza Hendrix MD Primary Care Provider: MARK Kilpatrick Diagnoses at Discharge Discharge Diagnosis 1. Stage 5 chronic kidney disease not on chronic dialysis: Reason for Visit Reason for Visit: cant catch breath n/v kidney failure Brief History: As per the retrospective notes of the admitting physician: Martir Kruger is a 59 year old male says he was getting ready for bed and was short of breath and burning in his chest. He had heart racing from worry and presented to the emergency department. He has had a cough dry nonproductive. He took Tums for his burning in the chest which helped. Patient denies history of DE. He states that he walks okay without chest pain on exertion. 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 Blood sugars run high with his open wound of his right foot. Weight has been stable but blood sugars running around 250. Last hemoglobin A1c was 8. Patient lives with his . 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 Patient states his weight has been stable at around 250 pounds. His kidney function has worsened from a GFR of 15 to GFR of 10. Today's troponin was 163 and at 60 minutes down to 159. (BUN 61 creatinine 5.4 same as last month 01/30/2025) Hospital Course Hospital Course Patient admitted as a case of shortness of breath and cardiology was consulted for possible underlying ACS, he was also having elevated troponins which could be in the light of worsening renal functions. The patient was actually following with [facility] for his initiation of hemodialysis sessions after PermCath versus AV graft? Creation. Patient underwent cardiac stress test which only showed old DE versus scarring therefore as per cardiology perspective he was stable and to follow-up with the cardiology as outpatient to consider possible angiogram as outpatient. He was given nitroglycerin for chest pain. Initially was on heparin infusion but after the stress test it was held. And it was suggested to continue on aspirin statins and beta-blockers. Since the patient came as overload and feeling of chest heaviness and shortness of breath, and there was no plan of when the patient hemodialysis session or PermCath versus AV fistula will be created in [facility], it was offered to the patient to have PermCath insertion here and to have hemodialysis session arranged. He agreed with the plan of care. Nephrology was on board. PermCath insertion was done and he tolerated the hemodialysis sessions very well during his hospital stay and he was given grateful for the team care that he got. He was feeling relieved and his shortness of breath significantly improved.All his medications were adjusted as inpatient and reconciled according to his condition and comorbidities Medications were reconciled after confirmation and according to patient comorbidities and appropriate follow-ups and referrals were provided at the time of discharge. Patient condition has been discussed at length with the patient/family, I have independently reviewed the chart labs imaging/diagnostics/EKG. the goals of care and code status with the patient/family/NOK/legal branch service representative, and documented accordingly. The management has been done according to the current clinical condition with respect to patient goals of care and based on recommendations/guidelines. The patient/family has been informed about the current condition and further plan of care. Agreed with the plan of care and understood without any language barrier. Every effort was made to ensure accuracy of settlement technician. Any obvious errors or omissions should be clarified with the author of the document. Physical Exam Narrative: General: Alert and oriented, lying comfortably without any distress, with PermCath catheter on the right chest without any signs of hematoma or emphysema or any infection HEENT: Normocephalic, atraumatic, grossly unremarkable exam Cardio: normal rate rhythm, normal S1-S2 without any murmurs, rubs, or gallops and JVD normal Respiratory: Bilateral equal entry without any crackles or wheezing GI: Abdomen soft, nontender, nondistended, normoactive bowel sounds present all 4 quadrants, Neuro: intact cranial nerves motor and sensory and cerebellar/coordination function without any focal neurological deficit Behavior: Appropriate and cooperative Extremities: Adequate palpable pulses, pitting edema on the right leg relatively better than yesterday, left leg stump Discharge Data Studies Completed and Pending Completed Studies During Hospitalization Category Date Time Status Cardiac Stress Test MIBI [Sestamibi Stress Test Request Exams 02/16/25 16:04 Completed ] Routine XR chest 1V portable [id number] Stat Exams 02/15/25 23:04 Completed NM zeina perf SPECT r/s* [id number] Routine Nuc Med 02/19/25 16:04 [place] [id number] Routine Ultrasound 02/16/25 09:13 Completed CV. echo wo/w contrast [id number] Routine Ultrasound 02/16/25 09:12 Completed Radiology Impressions Chest X-Ray 02/15/25 23:04 IMPRESSION: No acute findings. C-Arm Fluoroscopy 02/21/25 08:03 Impression: Insertion of right dialysis catheter into the right internal jugular vein. Laboratory Results WBC 8.43 10^3/uL (3.29-11.43) 02/23/25 04:18 RBC 3.45 10^6/uL (3.85-5.65) L 02/23/25 04:18 Hgb 8.90 g/dL (11.27-16.99) L 02/23/25 04:18 Hct 28.8 % (37-53) L 02/23/25 04:18 MCV 83.5 fl (82-101) 02/23/25 04:18 MCH 25.8 pg (27-33) L 02/23/25 04:18 MCHC 30.9 g/dL (30-55) 02/23/25 04:18 RDW 14.0 % (12.1-15.1) 02/23/25 04:18 Plt Count 318 10^3/cmm (157-399) 02/23/25 04:18 MPV 9.5 fL (7.4-10.4) 02/23/25 04:18 Neut % (Auto) 72.3 % 02/23/25 04:18 Lymph % (Auto) 13.5 % 02/23/25 04:18 Mccormick % (Auto) 11.4 % 02/23/25 04:18 Eos % (Auto) 1.4 % 02/23/25 04:18 Baso % (Auto) 0.5 % 02/23/25 04:18 Neut # (Auto) 6.09 10^3/uL (1.8-7.7) 02/23/25 04:18 Lymph # (Auto) 1.1 10^3/uL (0.8-4.8) 02/23/25 04:18 Mccormick # (Auto) 1.0 10^3/uL (0.2-0.9) H 02/23/25 04:18 Eos # (Auto) 0.1 10^3/uL (0.0-0.8) 02/23/25 04:18 Baso # (Auto) 0.0 10^3/uL (0.0-0.1) 02/23/25 04:18 Nucleated RBC % (auto) 0 % 02/23/25 04:18 Nucleated RBCs # 0.0 /100WBC 02/23/25 04:18 APTT 39.4 SECONDS (23.9-36.7) H 02/19/25 23:52 D-Dimer 1.17 ug/mLFEU (0-0.59) H 02/16/25 01:03 Sodium 136 mmol/L (136-145) 02/23/25 04:18 Potassium 3.9 mmol/L (3.5-5.1) 02/23/25 04:18 Chloride 98 mmol/L (98-107) 02/23/25 04:18 Carbon Dioxide 25 mmol/L (22-29) 02/23/25 04:18 Anion Gap 16.9 (5-19) 02/23/25 04:18 BUN 45 mg/dL (8-23) H 02/23/25 04:18 Creatinine 5.3 mg/dL (0.7-1.2) H 02/23/25 04:18 GFR Calculation 11.0 mL/min (90-130) L 02/23/25 04:18 Glucose 184 mg/dL (65-115) H 02/23/25 04:18 POC Glucose 195 mg/dL (70-110) H 02/23/25 06:25 Calculated Osmolality 298 mOsm/kg (285-295) H 02/23/25 04:18 Uric Acid 10.7 mg/dL (3.4-7.0) H 02/19/25 15:23 Calcium 8.5 mg/dL (8.5-10.5) 02/23/25 04:18 Phosphorus 5.3 mg/dL (2.5-4.5) H 02/22/25 04:45 Magnesium 2.8 mg/dL (1.7-2.3) H 02/21/25 05:14 Iron 31 ug/dL (59-158) L 02/16/25 09:50 TIBC 209 mcg/dl 02/16/25 09:50 % Saturation 14.8 % (20-50) L 02/16/25 09:50 Unsat Iron Binding 178 ug/dL (112-347) 02/16/25 09:50 Ferritin 277 ng/mL (30-400) 02/20/25 07:48 Total Bilirubin 0.3 mg/dL (0.15-1.2) 02/23/25 04:18 AST 10 U/L (0-40) 02/23/25 04:18 ALT < 5 U/L (0-41) 02/23/25 04:18 Alkaline Phosphatase 66 U/L (40-130) 02/23/25 04:18 Creatine Kinase 99 U/L (39-308) 02/19/25 15:23 Troponin T 5th Gen ng/L 274 ng/L (0-15) H* 02/16/25 11:06 Troponin T Baseline 163 ng/L (0-15) H* 02/15/25 21:39 Troponin T 60 Minute 159.5 ng/L (0-15) H 02/15/25 23:20 Delta Troponin T -3.5 ABS# (0-10) L 02/15/25 23:20 Troponin T Hi Sens 6Hr 210.3 ng/L (0-15) H 02/16/25 03:24 Troponin T Hi Sens 6Hr Delta 47.3 ng/L (0-12) H* 02/16/25 03:24 NT-Pro-B Natriuret Pep 99213 pg/mL (0-125) H 02/15/25 21:39 Total Protein 6.6 g/dL (6.6-8.7) 02/23/25 04:18 Albumin 3.0 g/dL (3.5-5.2) L 02/23/25 04:18 Globulin 3.6 g/dL (1.3-4.6) 02/23/25 04:18 Vitamin B12 352 pg/mL (232-1245) 02/16/25 09:50 25-OH Vitamin D Total 6 ng/mL (30-100) L 02/20/25 07:48 1,25 Dihydroxy Vit D2 <8 pg/mL 02/19/25 15:23 1,25 Dihydroxy Vit D3 <8 pg/mL 02/19/25 15: Folate 9.6 ng/mL (4.5-32.2) 02/17/25 02:24 PTH Intact 290.7 pg/mL (15-65) H 02/20/25 07:48 Calcium (PTH Intact) 8.3 mg/dL (8.5-10.5) L 02/20/25 07:48 Urine Color Yellow (Yellow) 02/19/25 17:47 Urine Appearance Clear (CLEAR) 02/19/25 17:47 Urine pH 6.0 (5-7) 02/19/25 17:47 Ur Specific [place] 1.012 (1.005-1.030) 02/19/25 17:47 Urine Protein 3+ (Negative) A 02/19/25 17:47 Urine Glucose (UA) 1+ (Normal) H 02/19/25 17:47 Urine Ketones Negative (Negative) 02/19/25 17:47 Urine Blood Negative (Negative) 02/19/25 17:47 Urine Nitrate Negative (Negative) 02/19/25 17:47 Urine Bilirubin Negative (Negative) 02/19/25 17:47 Urine Urobilinogen 0.2 mg/dL (Negative) 02/19/25 17:47 Ur Leukocyte Esterase Negative (Negative) 02/19/25 17:47 Urine RBC 0-2 /hpf (0-2) 02/19/25 17:47 Urine WBC 0-5 /hpf (0-5) 02/19/25 17:47 Ur Squamous Epith Cells 0-5 /hpf (0-5) 02/19/25 17:47 Amorphous Sediment Not Reportable 02/19/25 17:47 Urine Bacteria None seen /hpf (NONE) 02/19/25 17:47 Hyaline Casts 0.40 /lpf 02/19/25 17:47 Ur Random Sodium 60 mmol/L 02/19/25 17:47 Ur Random Potassium 27 mmol/L 02/19/25 17:47 Ur Random Chloride 49 mmol/L 02/19/25 17:47 Nasal MRSA (PCR) Not detected (Negative) 02/16/25 09:20 KATHERINE Screen Negative (NEGATIVE) 02/19/25 15:23 Hep Bs Antigen Non-reactive (Nonreactive) 02/21/25 05:14 Hep Bs Antibody < 3.5 (11.5-1000) L 02/21/25 05:14 Hepatitis C Antibody Non-reactive (Nonreactive) 02/19/25 15:23 Influenza A (PCR) Negative (Negative) 02/15/25 21:39 Influenza Type B (PCR) Negative (Negative) 02/15/25 21:39 RSV (PCR) Negative (Negative) 02/15/25 21:39 SARS-CoV-2 (PCR) Negative (Negative) 02/15/25 21:39 Vitals Last Vital Signs Temp 98.4 F 02/23/25 16:07 Pulse 66 02/23/25 16:07 Resp 18 02/23/25 16:07 BP 163/75 02/23/25 16:07 Pulse Ox 98 02/23/25 16:07 O2 Del Method Room Air 02/23/25 04:00 O2 Flow Rate 2 02/16/25 09:53 Discharge Plan Discharge Patient Disposition: Home Condition: Stable Prescriptions: New hydralazine 50 mg Tablet 75 mg PO TID 60 Days Qty: 270 0RF metoprolol tartrate 25 mg Tablet 50 mg PO BID 60 Days Qty: 240 0RF aspirin 81 mg Tablet,Delayed Release (Dr/Ec) 81 mg PO DAILY Qty: 90 0RF nitroglycerin [Nitro-Bid] 2 % Ointment 1 inch topical Q6H Qty: 48 0RF pantoprazole 40 mg Tablet,Delayed Release (Dr/Ec) 40 mg PO DAILY 60 Days Qty: 60 0RF atorvastatin [Lipitor] 40 mg tablet 40 mg PO DAILY Qty: 60 0RF Continued (DME) prosthetic sleeve and liners See Rx Instructions .Route .MEDSUPPLY Qty: 1 0RF Rx Instructions: As directed (DME) prosthetic leg sleeve See Rx Instructions .Route .MEDSUPPLY Qty: 2 2RF Rx Instructions: As directed (DME) prosthetic supplies See Rx Instructions .Route .MEDSUPPLY Qty: 1 0RF Rx Instructions: As directed insulin glargine [Lantus Solostar U-100 Insulin] 100 unit/mL (3 mL) insulin pen See Rx Instructions .ROUTE .COMPLEX Qty: 15 0RF Dose Instruction: INJECT 24 UNITS SUBCUTANEOUSLY TWICE DAILY Rx Instructions: INJECT 24 UNITS SUBCUTANEOUSLY TWICE DAILY Humulin R U-500 (Conc) Kwikpen 500 unit/mL (3 mL) insulin pen See Rx Instructions .ROUTE .COMPLEX Qty: 12 0RF Dose Instruction: INJECT 24 UNITS SUBCUTANEOUSLY THREE TIMES DAILY PER sliding scale Rx Instructions: INJECT 24 UNITS SUBCUTANEOUSLY THREE TIMES DAILY PER sliding scale (DME) FreeStyle Julius 2 Sensor Kit See Rx Instructions .ROUTE .COMPLEX Qty: 2 0RF Dose Instruction: apply ONE sensor AND CHANGE every 14 days Rx Instructions: apply ONE sensor AND CHANGE every 14 days amlodipine 10 mg tablet 10 mg PO DAILY 30 Days Qty: 30 0RF Discontinued furosemide [Lasix] 40 mg tablet 40 mg PO QAM Qty: 90 0RF metoprolol tartrate 25 mg tablet 25 mg PO BID hydralazine 50 mg tablet 50 mg PO BID Rehabilitation Manager OK for DC: Cardiology and Nephrology Discharge Order = DC NOW: Discharge Order (Routine); Ordered 02/23/25 Ordered By: Lorenza Hendrix Referrals: [facility] [Outside] - 02/25/25 1:15 pm Referral Note: You are on a Wednesday, Wednesday, Wednesday schedule. For the 1st 2 weeks, you will need to go on Wednesday, Wednesday, & Wednesday, due to the Holidays. You need to be there at 12:55pm & they will start at 1:15-5:15pm. You will start this Wednesday. Be there at 12:55pm. Gaviota Stephens NP [Nurse Practitioner, Cardiology] - 03/14/25 1:30 pm Sarika Corbin FNP [Primary Care Provider, Family Practice] - 02/26/25 9:00 am Discharge Diet: Cardiac and Low Salt Discharge Activity: Resume usual activity Patient Instructions: Metoprolol (By mouth), Aspirin (By mouth), Hydralazine (By mouth), Nitroglycerin Ointment (Absorbed through the skin), Atorvastatin (By mouth), Pantoprazole (By mouth), Dyspnea, Heart Failure (DC), Sleep Apnea (GEN), Chronic Kidney Disease (DC), Migraine Headache (ED), Acute Wound Care (DC), Chronic Hypertension (DC), Chest Pain Stoplight, Opioid Safety, Post Anesthesia Care, Patient Portal & Marge Instructions Discharge Attestations Time Spent in Discharge Care*: greater than 30 min Specific Discharge Activities: educating patient, educating and/or supporting family/caregiver, discussing with pcp/other providers, discussing with high risk case manager/social workers/dc planners, documenting/other paperwork and evaluating patient/reviewing data Status at Discharge: Cognitive status at discharge: cognitively intact, Behavioral status at discharge: cooperative, Functional status at discharge: independent ambulation, Overall status at discharge: patient has a new baseline Quality Metrics Clinical Quality Measures [ No reported AMI, CVA or VTE this stay] Coding Level of Care Code 38771 Diagnoses Stage 5 chronic kidney disease not on chronic dialysis N18.5 Chronic kidney disease stage: stage 5 (GFR < 15), not on chronic dialysis
== END 2025-02-23 15:00 | disposition home or self-care (01) | DRG 292 ==
LOC: ER 02-16 00:41 → CSU 02-16 00:58
PROVIDERS: Hospitalist; Internal Medicine; Internal Medicine Nephrology; Student in an Organized Health Care Education/Training Program; Admitting Provider Internal Medicine; Emergency Provider Emergency Medicine; PCP Nurse Practitioner Family; Visit Provider Student in an Organized Health Care Education/Training Program
PROC: 0JH63XZ Insertion of Tunneled Vascular Access Device into Chest Subcutaneous Tissue and Fascia, Percutaneous Approach (ICD-10-PCS; principal; 2025-02-21 08:05)
DX: I13.0 Hypertensive heart and chronic kidney disease with heart failure and stage 1 through stage 4 chronic kidney disease, or unspecified chronic kidney disease (principal); E87.1 Hypo-osmolality and hyponatremia; N17.9 Acute kidney failure, unspecified; E87.20 Acidosis, unspecified; N18.5 Chronic kidney disease, stage 5; Z82.49 Family history of ischemic heart disease and other diseases of the circulatory system; E11.22 Type 2 diabetes mellitus with diabetic chronic kidney disease; Z79.4 Long term (current) use of insulin; Z89.612 Acquired absence of left leg above knee; Z83.3 Family history of diabetes mellitus; I50.9 Heart failure, unspecified; E66.9 Obesity, unspecified; Z68.35 Body mass index [BMI] 35.0-35.9, adult; D64.9 Anemia, unspecified; E87.6 Hypokalemia; E11.65 Type 2 diabetes mellitus with hyperglycemia; G43.909 Migraine, unspecified, not intractable, without status migrainosus; I20.0 Unstable angina
CPT/HCPCS: 36415; 36416; 71045; 77001; 78452; 80048; 80053; 81001; 82306; 82310; 82436; 82550; 82607; 82652; 82728; 82746; 82962; 83540; 83550; 83735; 83880; 83970; 84100; 84132; 84133; 84300; 84484; 84550; 85025; 85049; 85378; 85730; 86038; 86706; 86803; 87340; 87637; 90935; 93005; 93970; 94640; 94664; 96372; 96374; 96375; 99285; A9500; C1750; C8929; J0690; J1100; J1644; J1815; J1938; J2405; J2704; J2785; J3010; J3490; J7030; J7626; J9999; Q3014; Q4081; Q5105

== ENCOUNTER → 2025-02-28 11:08 | Outpatient (BNVA) | payer MEDICARE, SELFPAY | PROVIDERS: PCP Nurse Practitioner Family; Visit Provider Thoracic Surgery (Cardiothoracic Vascular Surgery) | DX: E11.52 Type 2 diabetes mellitus with diabetic peripheral angiopathy with gangrene (principal); E11.621 Type 2 diabetes mellitus with foot ulcer; L97.415 Non-pressure chronic ulcer of right heel and midfoot with muscle involvement without evidence of necrosis | CPT/HCPCS: 11042; A6252 ==